=== PATIENT | female | born 1955 | race Caucasian/White ===

== ENCOUNTER 2022-12-01 09:24 | Emergency (ER) | payer MEDICARE, BC, SELFPAY ==
[2022-12-01 09:31] VITALS: BP 141/66; PULSE 94; RESP 20; TEMP 36.2; O2SAT 96; BMI 37.6
--- NOTE | 2022-12-01 09:41 | ED.NURSE ---
[facility] Dispatch contacted and informed of pt's dog bite. Provided dispatch with pt's phone number to contact pt directly for info.
--- NOTE | 2022-12-01 09:54 | ED.ANIMALBIT ---
HPI - Animal Bite General Time Seen by Provider: 09:54 Date Seen: 12/01/22 Chief Complaint: Animal Bite Stated Complaint: Dog bite L hand Time Seen by Provider: 12/01/22 09:54 Source: patient and RN notes reviewed Mode of arrival: ambulatory Limitations: no limitations History of Present Illness HPI narrative: Anna is a very pleasant 67-year-old female with history of type 2 diabetes note, no history of MRSA who comes to the emergency room for evaluation of a dog bite. Charley bruno dog actually bit her yesterday on the left hand. This is a dog that is fully vaccinated. She notes that today there is more redness. She also noticed some swelling. She and her daughter worried because she does have a history of diabetes. She has no fever or chills. No vomiting. She has not taken anything for pain. She feels like her tetanus was ?along long time ago?. She is currently on Keflex Anna typically sees a PA in the [place] [facility] at the [facility]. No previous notes on patient. Related Data Previous Rx's Medication Instructions Recorded doxycycline hyclate 100 mg capsule 100 mg PO BID #14 caps 12/01/22 metronidazole 500 mg tablet 500 mg PO TID #20 tabs 12/01/22 Allergies Allergy/AdvReac Type Severity Reaction Status Date / Time adhesive tape Allergy Unknown Verified 12/01/22 09:36 Penicillins Allergy Unknown Verified 12/01/22 09:36 Review of Systems Status of ROS: Reports: 6 or more systems reviewed and unremarkable except as noted in History and below Const: Denies: fever GI: Denies: nausea or vomiting Musculo: Reports: extremity pain (Left hand) and extremity swelling Integ/Breast: Reports: redness, skin tenderness and skin swelling Neuro: Denies: headache PFSH PFSH Social History Smoking Status: Unknown if ever smoked Exam Narrative: Exam Narrative: Patient is a very pleasant alert and oriented. As she has no respiratory distress at this time. Examination of her left hand shows a v-shaped laceration measuring in total approximately 1.4 cm. This compromises epidermis dermis and is open to the subcutaneous tissue. I do note that on the dorsal edge of the wound it does appear to be at least 1 cm penetration. No significant purulent discharge at this time but she does have surrounding erythema on the web space extending not quite until the 1st MCP. She has full abduction ad duction extension and flexion against resistance. She has full sensation. Distal to this laceration she has a superficial area of skin avulsion epidermis only with dermis intact. This is slightly larger than a dime. Const: Vital Signs, click to edit/add: Vital Signs - 24 hr 12/01/22 09:31 Temperature 97.1 F L Pulse Rate [Pulse Oximeter] 94 Respiratory Rate 20 Blood Pressure [Le ft Upper Arm] 141/66 H Pulse Oximetry 96 Oxygen Delivery Me thod Room Air Documenting provider has reviewed patient's vital signs: yes Course Course Hospital Course: Patient has sustained a dog bite and it appears that she has an early cellulitis. I do not note any compromise of the ligaments or musculatures with full motor and sensation. I would suggest irrigation of this wound as I do think it is deeper than the subcutaneous tissue at the webspace. Will x-ray to ensure no retained foreign body such as a dog 2s. Plan on antibiotics. Patient does have penicillin allergy so will need to use alternative regimen. Vital Signs Vital signs: Initial Vital Signs Temperature 97.1 F L 12/01/22 09:31 Temperature Source Temporal Artery Scan 12/01/22 09:31 Pulse Rate 94 12/01/22 09:31 Respiratory Rate 20 12/01/22 09:31 Blood Pressure 141/66 H 12/01/22 09:31 Blood Pressure Mean 91 12/01/22 09:31 Blood Pressure Position Sitting 12/01/22 09:31 Pulse Oximetry 96 12/01/22 09:31 Oxygen Delivery Method Room Air 12/01/22 09:31 Vital Signs Temperature 97.1 F L 12/01/22 09:31 Pulse Rate 94 12/01/22 09:31 Respiratory Rate 20 12/01/22 09:31 Blood Pressure 141/66 H 12/01/22 09:31 Pulse Oximetry 96 12/01/22 09:31 Oxygen Delivery Method Room Air 12/01/22 09:31 Temperature 97.1 F L 12/01/22 09:31 Pulse Rate 94 12/01/22 09:31 Respiratory Rate 20 12/01/22 09:31 Blood Pressure 141/66 H 12/01/22 09:31 Pulse Oximetry 96 12/01/22 09:31 Oxygen Delivery Method Room Air 12/01/22 09:31 MDM - Animal Bite MDM Narrative Medical decision making narrative: 1. Dog bite-no evidence of retained foreign body. Tetanus was in 2015 and thus because this was a dirty wound we elected to update with tetanus diphtheria given earlier today. For pain patient may use ibuprofen or Tylenol as needed. No evidence of underlying structure damage. 2. Cellulitis-patient has penicillin allergy and therefore will use doxycycline 100 mg p.o. b.i.d. for 7 days, Flagyl 500 mg p.o. t.i.d. for 7 days. [facility] [place]. Anna's daughter has check to make sure it is open today as it is a holiday. I did place a small 1/4 inch plain Nu Gauze wick into the laceration. I explained that after this long we would not so a laceration. I would want to actually keep this open for a period of time until we see improvement in the swelling and redness. They will follow-up tomorrow. If they have improvement they may remove that piece of gauze. If not would recommend a continued 24 hours in the event that there is drainage that needs to leave the wound. Unfortunately, I did explain that some of these wounds do need to go to the operating room for irrigation. I do not feel that is the case at this time. I did explain that Anna would need to return to the emergency room for worsening symptoms especially fever, chills, redness extending up the arm, vomiting. 3. Disposition-home at this time. Return as needed. Imaging Data hand xr: Attestation: I have reviewed the pertinent imaging results. My impression: no foreign bodies noted Radiologist's impression: Degenerative changes. No fracture. No soft tissue gas. No radiodense foreign body. Impression: No foreign body. No fracture. Discharge Plan Discharge Clinical Impression: Dog bite, Cellulitis Patient Disposition: Home, Self-Care Condition: Unchanged Additional Instructions: You will need to be on 2 different antibiotics in order to cover the bacteria that could be causing this infection. First he will be on doxycycline twice a day. That medication is every 12 hours. Secondly you will be on a medication called Flagyl which will be 3 times a day. Follow-up tomorrow for a recheck. Once the redness disappears recommend pulling the gauze from the wound. This should be in the next 24-48 hours. Stop Keflex while on these antibiotics. Check with your dentist to see if they want you to resume Keflex after 7 days of treatment with doxycycline and metronidazole. Ibuprofen or Tylenol as needed for discomfort. Return to the emergency room for fever, worsening symptoms including swelling drainage of pus or redness extending up the hand and arm. Prescriptions: New metronidazole 500 mg tablet 500 mg PO TID Qty: 20 0RF doxycycline hyclate 100 mg capsule 100 mg PO BID Qty: 14 0RF Stand Alone Forms: [facility] Info Instructions
--- NOTE | 2022-12-01 10:02 | CRLHL7_ITS ---
For Patients: As a result of the Cures Act, medical imaging exams and procedure reports are released immediately into your electronic medical record. You may view this report before your referring provider. If you have questions, please contact your health care provider. Indication: Dog bite Technique: 2 views left hand Comparison: None Findings: Degenerative changes. No fracture. No soft tissue gas. No radiodense foreign body. Impression: No foreign body. No fracture. Dictated by Walter Ribeiro MD @ 12/01/2022 10:18:32 AM (Electronically Signed)
--- NOTE | 2022-12-01 10:21 | ED.NURSE ---
Lacs on pt L hand irrigated with ~30mLs NS.
[2022-12-01 10:51] VITALS: BP 112/71; PULSE 91; O2SAT 93
== END 2022-12-01 10:53 | disposition home or self-care (01) ==
LOC: ED 10:50
PROVIDERS: Emergency Provider Family Medicine; PCP Internal Medicine
DX: S61.452A Open bite of left hand, initial encounter (principal); L03.114 Cellulitis of left upper limb; W54.0XXA Bitten by dog, initial encounter; Z23 Encounter for immunization
CPT/HCPCS: 73120; 87070; 90471; 90714; 99283; 99284

== ENCOUNTER 2023-07-28 15:11 | Emergency (ER) | payer MEDICARE, BC, SELFPAY ==
[2023-07-28 15:18] VITALS: BP 164/76; PULSE 96; RESP 20; TEMP 36.6; O2SAT 95; BMI 33.8
--- NOTE | 2023-07-28 15:20 | XR_ITS ---
Patient: RAJINDER VERMA Facility:?[facility] Patient ID:?[id number] Site Patient ID:?[id number]. Site :?1955 Study:?XRay-Extremity Left HAND-07/28/2023 3:55:58 PM Ordering Physician:RENEE Final Report: Indication: Trauma, fall. Technique: Left hand 3 views. Comparison: None. Findings/Impression: Bones: Alignment is normal. No fractures or bone lesions. No sign of acute injury. Joint spaces: Arthritis present in the 1st CMC joint and throughout the IP joints. Soft tissues: Unremarkable. Dictated by Valentino Mock MD @ 07/28/2023 4:43:12 PM Signed by:?Vaelntino Mock MD @07/28/2023 4:43:12 PM (Electronic Signature)
--- NOTE | 2023-07-28 15:20 | XR_ITS ---
Patient: RAJINDER VERMA Facility:?[facility] Patient ID:?[id number] Site Patient ID:?[id number]. Site :?1955 Study:?XRay-Spine LUMBAR-07/28/2023 3:58:02 PM Ordering Physician:RENEE Final Report: INDICATION: Trauma, fall. TECHNIQUE: Lumbar spine 3 view. COMPARISON: None. FINDINGS: Bones: Alignment is normal. No fractures or significant bone lesions. No signs of acute injury. Anterior endplate Joints: Osteophytes at multiple levels. Disc spaces are within normal limits for age. Diffuse hypertrophic facet joint arthrosis. Soft tissues: Unremarkable. Dictated by Valentino Mock MD @ 07/28/2023 4:46:40 PM Signed by:?Valentino Mock MD @07/28/2023 4:46:40 PM (Electronic Signature)
--- NOTE | 2023-07-28 15:20 | XR_ITS ---
Patient: RAJINDER VERMA Facility:?[facility] Patient ID:?[id number] Site Patient ID:?[id number]. Site :?1955 Study:?XRay-Extremity Left FOREARM-07/28/2023 3:56:47 PM Ordering Physician:RENEE Final Report: Indication: Trauma, fall. Technique: Left forearm 3 views. Comparison: None. Findings/Impression: Bones: Alignment is normal. No fractures or bone lesions. No sign of acute injury. Joint spaces: Unremarkable. Soft tissues: Unremarkable. Dictated by Valentino Mock MD @ 07/28/2023 4:45:21 PM Signed by:?Valentino Mock MD @07/28/2023 4:45:21 PM (Electronic Signature)
--- NOTE | 2023-07-28 15:20 | XR_ITS ---
Patient: RAJINDER VERMA Facility:?[facility] Patient ID:?[id number] Site Patient ID:?[id number]. Site :?1955 Study:?XRay-Extremity Right HAND-07/28/2023 3:54:28 PM Ordering Physician:RENEE Final Report: Indication: Trauma. Technique: Right hand, 3 views. Comparison: None. Findings: Bones: Diffuse demineralization of visualized bones. Alignment is normal. No fractures or bone lesions. Joint spaces: Mild to moderate diffuse degenerative changes.. Soft tissues: Unremarkable. Impression: No sign of acute injury. Dictated by Kirsten Lino MD @ 07/28/2023 4:41:46 PM Signed by:?Kirsten Lino MD @07/28/2023 4:41:46 PM (Electronic Signature)
--- NOTE | 2023-07-28 15:21 | XR_ITS ---
Patient: RAJINDER VERMA Facility:?[facility] Patient ID:?[id number] Site Patient ID:?[id number]. Site :?1955 Study:?XRay-Extremity Right WRIST-07/28/2023 3:52:48 PM Ordering Physician:RENEE Final Report: Indication: Trauma, fall. Technique: Right wrist 3 views. Comparison: None. Findings/Impression: Bones: Subtle nondisplaced fracture suspected in the base of the ulnar styloid. No other osseous abnormality. Joint spaces: Unremarkable. Soft tissues: Unremarkable. Dictated by Valentino Mock MD @ 07/28/2023 4:41:32 PM Signed by:?Valentino Mock MD @07/28/2023 4:41:32 PM (Electronic Signature)
--- NOTE | 2023-07-28 15:23 | ED.GENADULT ---
HPI - General Adult General Chief complaint: Extremity Pain/Injury, Upper Stated complaint: Fell yesterday, L arm injury Time Seen by Provider: 07/28/23 15:13 History of Present Illness HPI narrative: 68-year-old white female with a history of falling down a couple stairs yesterday she injured her right long finger injured over the D IP joint she injured her left ring finger over the same joint. She complains of low back discomfort although she has been ambulatory, no bowel or bladder change fever chills perineal numbness no lower extremity symptoms. The patient also complains of abrasions to the left forearm and pain in her right wrist. She describes herself as being largely healthy, she has had no prior injuries to these areas. She was simply going in her car when she lost balance. She denies chest pain breathing problem or neurologic complaint at the time of the injury. Related Data Previous Rx's Medication Instructions Recorded doxycycline hyclate 100 mg capsule 100 mg PO BID #14 caps 12/01/22 doxycycline hyclate 100 mg capsule 100 mg PO BID #14 caps 12/01/22 metronidazole 500 mg tablet 500 mg PO TID #20 tabs 12/01/22 metronidazole 500 mg tablet 500 mg PO TID #20 tabs 12/01/22 Allergies Allergy/AdvReac Type Severity Reaction Status Date / Time adhesive tape Allergy Unknown Verified 12/01/22 09:36 Penicillins Allergy Unknown Verified 12/01/22 09:36 Review of Systems Status of ROS: Reports: 6 or more systems reviewed and unremarkable except as noted in History and below [facility] Social History Smoking Status: Never smoker How often do you have a drink containing alcohol: never How often do you have six or more drinks on one occasion: Never AUDIT-C Alcohol total score: 0 Non-prescribed substance use: denies use Exam Narrative: Exam Narrative: Objective: Patient is alert, moves her neck fully has no neck pain or headache, no HEENT trauma noted Back exam shows some mild hypersensitivity to the lumbar spine with mild tenderness in the paravertebral muscles, no bruising or ecchymoses Pelvis is stable Lower extremities unremarkable moves them well she is able to ambulate without difficulty Her left forearm shows abrasions over the entire volar forearm, and she has got soft tissue swelling of her ring finger and on the right wrist she has got a little redness over ulnar styloid and some swelling of the long finger. There appears to be mostly tenderness over the D IP joint area. There is no marked dislocation of either left ring or right long finger. Neurologic is nonfocal upper lower extremities. She does have full range of motion of the fingers that are injured. Const: Vital Signs, click to edit/add: Vital Signs - 24 hr 07/28/23 15:18 Temperature 98 F Pulse Rate [Pulse Oximeter] 96 Respiratory Rate 20 Blood Pressure [Ri ght Upper Arm] 164/76 H Pulse Oximetry 95 Oxygen Delivery Me thod Room Air Course Vital Signs Vital signs: Initial Vital Signs Temperature 98 F 07/28/23 15:18 Temperature Source Temporal Artery Scan 07/28/23 15:18 Pulse Rate 96 07/28/23 15:18 Pulse Rhythm Regular 07/28/23 15:18 Respiratory Rate 20 07/28/23 15:18 Blood Pressure 164/76 H 07/28/23 15:18 Blood Pressure Mean 105 07/28/23 15:18 Blood Pressure Position Supine 07/28/23 15:18 Pulse Oximetry 95 07/28/23 15:18 Oxygen Delivery Method Room Air 07/28/23 15:18 Vital Signs Temperature 98 F 07/28/23 15:18 Pulse Rate 96 07/28/23 15:18 Respiratory Rate 20 07/28/23 15:18 Blood Pressure 164/76 H 07/28/23 15:18 Pulse Oximetry 95 07/28/23 15:18 Oxygen Delivery Method Room Air 07/28/23 15:18 Temperature 98 F 07/28/23 15:18 Pulse Rate 96 07/28/23 15:18 Respiratory Rate 20 07/28/23 15:18 Blood Pressure 164/76 H 07/28/23 15:18 Pulse Oximetry 95 07/28/23 15:18 Oxygen Delivery Method Room Air 07/28/23 15:18 Medications Administered Medications: Discontinued Medications Generic Name Dose Route Start Last Admin Trade Name Freq PRN Reason Stop Dose Admin Diphtheria/Tetanus/Acell Pertussis 0.5 ml 07/28/23 15:22 07/28/23 15:33 Tetanus/Diphth/Pertussis 0.5 Ml Syringe IM 07/28/23 15:23 Not Given .ONCE ONE Medical Decision Making MDM Narrative Medical decision making narrative: [age] year white female fell down some stairs, within the last day or so, has low back discomfort, bilateral right long and left ring finger tenderness, right foot wrist tenderness and left form tenderness. Will check x-rays of those areas. Will check a lumbar spine x-ray as well. Her tetanus is up-to-date. She is ambulatory without difficulty. Disposition pending findings above. Addendum 4:00 p.m.: The patient's x-ray of her left forearm left hand, right wrist and right hand appear unremarkable, her lumbar spine x-ray show degenerative scoliosis and facet arthropathy, anterior osteophytic spurring but no fractures noted or significant malalignment. At this point I think she could follow a regimen of ice, Advil for few days, light activity, recheck with regular doctor in the next 3-4 days, return to ED sooner problems or concerns. Will review x-ray radiologist reports when they return. I suspect the patient will recover from these issues and would recommend follow-up with primary care as mention thank Discharge Plan Discharge Clinical Impression: Low back pain, Finger injury, Fall, Abrasion forearm Patient Disposition: Home, Self-Care Additional Instructions: ice, advil , recheck primary care in the next 2-3 days. Keep left forearm abrasions cleansed and covered for 2-3 days. Bacitracin would be a good covering agent. Your up-to-date on her tetanus shot Activity Level: Light activity Discharge Diet: Regular Prescriptions: No Action metronidazole 500 mg tablet 500 mg PO TID Qty: 20 0RF doxycycline hyclate 100 mg capsule 100 mg PO BID Qty: 14 0RF doxycycline hyclate 100 mg capsule 100 mg PO BID Qty: 14 0RF metronidazole 500 mg tablet 500 mg PO TID Qty: 20 0RF Follow Up/Referrals: Laly Dickey PA-C [Primary Care Provider] - Stand Alone Forms: [employer] Info Instructions
== END 2023-07-28 16:25 | disposition home or self-care (01) ==
PROVIDERS: Emergency Provider Family Medicine; PCP Internal Medicine
DX: M54.50 Low back pain, unspecified (principal); S69.92XA Unspecified injury of left wrist, hand and finger(s), initial encounter; S50.812A Abrasion of left forearm, initial encounter; W01.0XXA Fall on same level from slipping, tripping and stumbling without subsequent striking against object, initial encounter
CPT/HCPCS: 72100; 73090; 73110; 73130; 90471; 99284; 99285

== ENCOUNTER 2023-10-10 14:04 | Inpatient (IN) | payer MEDICARE, BC, SELFPAY ==
[2023-10-10] VITALS (22 sets, daily range): BP systolic 102–138; BP diastolic 47–107; PULSE 87–106; RESP 20–26; TEMP 36.9–37.9; O2SAT 89–96; BMI 35.4; BMI 39.4
--- NOTE | 2023-10-10 14:30 | XR_ITS ---
Patient: RAJINDER VERMA Facility:?[facility] Patient ID:?[id number] Site Patient ID:?[id number] Site :?1955 Study:?XRay-Chest 1 VIEW PORTABLE-10/10/2023 2:44:25 PM Ordering Physician:RENEE Final Report: INDICATION: Cough. TECHNIQUE: Chest 1 view. COMPARISON: None. FINDINGS: Evaluation limited by patient rotation. Cardiovascular and mediastinum: Heart size and vasculature are normal in caliber and appearance. Lungs and pleural spaces: Lungs are clear. No sign of infiltrate or mass. No sign of pleural effusion. No pneumothorax. Bones and soft tissues: Degenerative changes of the spine and shoulders. IMPRESSION: No acute pulmonary process. Dictated by Kar Monahan MD @ 10/10/2023 3:05:14 PM Signed by:?Kar Monahan MD @10/10/2023 3:05:14 PM (Electronic Signature)
--- NOTE | 2023-10-10 14:32 | ED_ITS ---
HPI - General Adult General Chief complaint: Shortness of Breath/Dyspnea Stated complaint: SOB COPD History Time Seen by Provider: 10/10/23 14:06 History of Present Illness HPI narrative: Patient is a 68 year white female who has a history of type 2 diabetes by chart review, and COPD, who presents with shortness of breath and fever over the last several days. She has had an increasing cough, a little bit more productive than it has been. She has no chest pain, no swelling or edema in the legs, she has not had history of heart failure by her report. Patient does feel short of breath. She presents hypoxic with her O2 sat 88 89% range on room air. It goes in the mid 90 range on 2 lease or L nasal cannula. The patient is reporting weakness as well and difficulty sitting up and walking. The patient was brought in by EMS, family noticed that she was a little confused today, also short of breath, also paramedics noted a mid 80 O2 sat. She was given a DuoNeb in route. Related Data Home Medications Medication Instructions Recorded Confirmed albuterol sulfate 90 mcg/actuation 2 puff inhalation Q4H PRN 10/10/23 10/10/23 aerosol inhaler amitriptyline 50 mg tablet 150 mg PO HS 10/10/23 10/10/23 aspirin 81 mg tablet,delayed 81 mg PO DAILY 10/10/23 10/10/23 release atorvastatin 80 mg tablet 80 mg PO DAILY 10/10/23 10/10/23 diclofenac sodium 1 % topical gel 4 g topical QID PRN 10/10/23 10/10/23 ezetimibe 10 mg tablet 10 mg PO DAILY 10/10/23 10/10/23 gabapentin 300 mg capsule 300 mg PO HS 10/10/23 10/10/23 insulin detemir U-100 100 unit/mL 32 unit subcut BID 10/10/23 10/10/23 (3 mL) subcutaneous pen (Levemir FlexPen) multivitamin with minerals 1 cap PO DAILY 10/10/23 10/10/23 omeprazole 40 mg capsule,delayed 40 mg PO DAILY 10/10/23 10/10/23 release semaglutide 0.25 mg or 0.5 mg (2 0.5 mg subcut .weekly 10/10/23 10/10/23 mg/3 mL) subcutaneous pen injector (Ozempic) semaglutide 1 mg/dose (4 mg/3 mL) 1 mg subcut .weekly 10/10/23 10/10/23 subcutaneous pen injector tiotropium bromide 2.5 2 inh inhalation Q24H 10/10/23 10/10/23 mcg/actuation mist for inhalation (Spiriva Respimat) torsemide 20 mg tablet 80 mg PO DAILY 10/10/23 10/10/23 tramadol 50 mg tablet 50 mg PO HS PRN 10/10/23 10/10/23 venlafaxine 150 mg 150 mg PO DAILY 10/10/23 10/10/23 capsule,extended release 24 hr Previous Rx's Medication Instructions Recorded doxycycline hyclate 100 mg capsule 100 mg PO BID #14 caps 12/01/22 doxycycline hyclate 100 mg capsule 100 mg PO BID #14 caps 12/01/22 metronidazole 500 mg tablet 500 mg PO TID #20 tabs 12/01/22 metronidazole 500 mg tablet 500 mg PO TID #20 tabs 12/01/22 Allergies Allergy/AdvReac Type Severity Reaction Status Date / Time adhesive tape Allergy Unknown Verified 10/10/23 14:16 Penicillins Allergy Unknown Verified 10/10/23 14:16 Review of Systems Status of ROS: Reports: 6 or more systems reviewed and unremarkable except as noted in History and below [facility] Medical History (Updated 10/10/23 @ 17:56 by Lukas Santiago MD) Dizziness ?R42 - Dizziness and giddiness (ICD-10) Hyperlipidemia ?E78.5 - Hyperlipidemia, unspecified (ICD-10) Anxiety ?F41.9 - Anxiety disorder, unspecified (ICD-10) Gastroesophageal reflux ?K21.9 - Gastro-esophageal reflux disease without esophagitis (ICD-10) Obstructive sleep apnea ?G47.33 - Obstructive sleep apnea (adult) (pediatric) (ICD-10) Peripheral autonomic neuropathy due to diabetes mellitus ?E11.43 - Type 2 diabetes mellitus with diabetic autonomic (poly)neuropathy (ICD-10) Diabetes mellitus ?E11.9 - Type 2 diabetes mellitus without complications (ICD-10) Chronic back pain ?M54.9 - Dorsalgia, unspecified (ICD-10) ?G89.29 - Other chronic pain (ICD-10) Pulmonary nodule ?R91.1 - Solitary pulmonary nodule (ICD-10) Hypertension ?I10 - Essential (primary) hypertension (ICD-10) Comminuted right humeral fracture with nonunion ?S42.351K - Displaced comminuted fracture of shaft of humerus, right arm, subsequent encounter for fracture with nonunion (ICD-10) Chronic renal failure, stage 3b ?N18.32 - Chronic kidney disease, stage 3b (ICD-10) Obesity ?E66.9 - Obesity, unspecified (ICD-10) Heart failure with preserved ejection fraction ?I50.30 - Unspecified diastolic (congestive) heart failure (ICD-10) COPD (chronic obstructive pulmonary disease) ?J44.9 - Chronic obstructive pulmonary disease, unspecified (ICD-10) Surgical History (Updated 10/10/23 @ 17:46 by Lukas Santiago MD) Hx of shoulder surgery ?Z98.890 - Other specified postprocedural states (ICD-10) History of parathyroidectomy ?Z98.890 - Other specified postprocedural states (ICD-10) ?Z90.89 - Acquired absence of other organs (ICD-10) Family History (Updated 10/10/23 @ 17:48 by Lukas Santiago MD) Brother Diabetes Hx of CABG Sister Diabetes Father Lung cancer Prostate cancer Mother Lung cancer Heart disease Social History (Updated 10/10/23 @ 17:50 by Lukas Santiago MD) Narrative: Anna lives in [place] with her brother. She reports generally this has been going well. She has some disability because of her remote history of right shoulder injury, poorly healing humeral fracture. She walks without assistive device. She quit smoking about 21 years ago. She does not drink alcohol. Her daughter Lea is healthcare power of banking attorney. Code status is full What is your current living situation?: I presently have a place to live Problems where you live: no known problems Problems where you live details: N/A In the past 12 months, utilities in danger of being shut off: no In past 12 months, lack of transportation kept you from medical appts, meetings, work, or getting things needed for daily living: no In the past 12 mos, have been you worried that your food would run out before you had money to buy more?: never true In the past 12 mos, the food you bought just didn't last and you didn't have money to buy more?: never true Smoking Status: Former smoker How often do you have a drink containing alcohol: never How often do you have six or more drinks on one occasion: Never AUDIT-C Alcohol total score: 0 Non-prescribed substance use: denies use Caffeine: Yes How often does anyone, including family, friends and others, physically hurt you : never How often does anyone, including family, friends and others, insult or talk down to you: never How often does anyone, including family, friends and others, threaten you with harm: never How often does anyone, including family, friends and others, scream or curse at you: never service: No Exam Narrative: Exam Narrative: Objective: Patient's temperature is 100.3? O2 sat is 88 89% on room air Alert, patient is having real difficulty sitting up as she is quite weak. No scleral icterus Mouth clear but dry Neck is supple Chest diminished air exchange bilaterally no obvious rales or wheezing Heart rate and rhythm regular 2/6 systolic murmur occasional ectopic beat noted abdomen benign soft extremities are no edema neurologic nonfocal Patient does have what appear to be surgical scars over knees Const: Vital Signs, click to edit/add: Vital Signs - 24 hr 10/10/23 14:00 10/10/23 14:16 10/10/23 14:38 Temperature 100.3 F H Pulse Rate 106 H Pulse Rate [Pulse Oximeter] 104 H Respiratory Rate 26 H Blood Pressure Blood Pressure [Ri ght Upper Arm] 128/70 Pulse Oximetry 89 93 Oxygen Delivery Me thod Nasal Cannula Room Air Nasal Cannula Oxygen Flow Rate 2 2 10/10/23 14:45 10/10/23 15:21 10/10/23 15:26 Temperature Pulse Rate 102 H 102 H 101 H Pulse Rate [Pulse Oximeter] Respiratory Rate Blood Pressure 121/71 Blood Pressure [Ri ght Upper Arm] Pulse Oximetry 94 92 94 Oxygen Delivery Me thod Nasal Cannula Nasal Cannula Nasal Cannula Oxygen Flow Rate 2 2 2 10/10/23 15:30 10/10/23 15:32 10/10/23 15:45 Temperature Pulse Rate 100 100 100 Pulse Rate [Pulse Oximeter] Respiratory Rate Blood Pressure 135/71 Blood Pressure [Ri ght Upper Arm] Pulse Oximetry 94 96 96 Oxygen Delivery Me thod Nasal Cannula Nasal Cannula Nasal Cannula Oxygen Flow Rate 2 1 1 10/10/23 16:00 10/10/23 16:02 10/10/23 16:15 Temperature Pulse Rate 102 H 100 100 Pulse Rate [Pulse Oximeter] Respiratory Rate Blood Pressure 116/59 L Blood Pressure [Ri ght Upper Arm] Pulse Oximetry 94 93 93 Oxygen Delivery Me thod Nasal Cannula Nasal Cannula Nasal Cannula Oxygen Flow Rate 1 1 1 10/10/23 16:30 10/10/23 16:32 10/10/23 16:45 Temperature Pulse Rate 100 100 100 Pulse Rate [Pulse Oximeter] Respiratory Rate Blood Pressure 131/85 Blood Pressure [Ri ght Upper Arm] Pulse Oximetry 92 90 93 Oxygen Delivery Me thod Nasal Cannula Nasal Cannula Nasal Cannula Oxygen Flow Rate 1 1 1 10/10/23 17:00 10/10/23 17:01 Temperature Pulse Rate 98 99 Pulse Rate [Pulse Oximeter] Respiratory Rate Blood Pressure 138/107 H Blood Pressure [Ri ght Upper Arm] Pulse Oximetry 94 94 Oxygen Delivery Me thod Nasal Cannula Nasal Cannula Oxygen Flow Rate 1 1 Course Vital Signs Vital signs: Initial Vital Signs Oxygen Delivery Method Nasal Cannula 10/10/23 14:00 Oxygen Flow Rate 2 10/10/23 14:00 Vital Signs Oxygen Delivery Method Nasal Cannula 10/10/23 14:00 Oxygen Flow Rate 2 10/10/23 14:00 Temperature 100.1 F H 10/10/23 17:55 Pulse Rate 99 10/10/23 17:55 Respiratory Rate 22 10/10/23 17:55 Blood Pressure 122/66 10/10/23 17:55 Pulse Oximetry 95 10/10/23 17:55 Oxygen Delivery Method Nasal Cannula 10/10/23 17:55 Oxygen Flow Rate 1 10/10/23 17:55 Medications Administered Medications: Discontinued Medications Generic Name Dose Route Start Last Admin Trade Name Freq PRN Reason Stop Dose Admin Azithromycin 500 mg 10/10/23 16:14 10/10/23 17:14 Azithromycin 100 Mg/Ml Inj IVPB 10/10/23 16:15 500 mg ONCE ONE Administration Sodium Chloride 500 mls @ 500 mls/hr 10/10/23 14:29 10/10/23 16:35 0.9 % Sodium Chloride 500 Ml IV 10/10/23 15:28 Infused .Q1H ONE Infusion Ceftriaxone Sodium 1 gm/ 100 mls @ 200 mls/hr 10/10/23 16:14 10/10/23 17:29 Sodium Chloride IVPB 10/10/23 16:15 Infused ONCE ONE Infusion Prednisone 60 mg 10/10/23 17:11 10/10/23 18:15 Prednisone 20 Mg Tablet PO 10/10/23 17:12 60 mg ONCE ONE Administration Medical Decision Making MDM Narrative Medical decision making narrative: [age] year white female with COPD history of type 2 diabetes with fever, increasing cough. I think could be hess to check the viral studies, chest x- ray, will give IV fluid, patient likely will need IV steroids and antibiotics and hospitalization. Will check the above-mentioned studies please see disposition and results. Addendum 3:06 p.m.: The patient has a rotated x-ray that does show some pulmonary congestion in at the bases, read by Radiology as normal, but given her hypoxia her fever I think it be hess to check a CT without contrast of her chest to make sure to them the pneumonia. Her EKG shows sinus tachycardia but no acute ST T wave changes. This is by my read. The patient's viral studies are negative. Addendum 4:[address] patient's CT scan shows right lower lobe patchy infiltrate consistent with pneumonia. She was hypoxic on presentation I think we should observe her overnight IV antibiotics nebs and steroid plus or minus steroids. Will discuss admission with hospitalist. Lab Data Labs: Lab Results 10/10/23 10/10/23 10/10/23 Range/Units 14:20 14:36 14:50 WBC 8.02 (4.50-11.00) K/uL RBC 3.88 L (4.00-5.20) m/uL Hgb 12.1 (12.0-16.0) gm/dL Hct 35.7 (33.0-51.0) % MCV 92 (80-100) fL MCH 31 (26-34) pg MCHC 34 (32-36) gm/dL RDW Coeff of Isiah 12.5 (11.5-15.5) % Plt Count 229 (140-440) K/uL Neut % (Auto) 72.7 H (42.0-72.0) % Lymph % (Auto) 13.7 L (20-44) % [place] % (Auto) 11.0 (0.0-11.0) % Eos % (Auto) 2.0 (0.0-7.0) % Baso % (Auto) 0.5 (0.0-3.0) % Neut # (Auto) 5.80 (1.7-7.0) K/uL Lymph # (Auto) 1.10 (0.90-2.90) K/uL [place] # (Auto) 0.90 (0.00-0.90) K/UL Eos # (Auto) 0.16 (0.00-0.50) K/uL Baso # (Auto) 0.04 (0.00-0.30) K/uL Abs Immat Gran (auto) 0.01 (0.00-0.30) K/uL Imm/Tot Granulo (auto) 0.1 % VBG pH 7.463 H (7.32-7.43) VBG pCO2 40 (40-50) mmHG VBG pO2 40.1 (25-47) mmHG VBG HCO3 29 H (21-28) mmol/L Sodium 133 L (135-149) mmol/L Potassium 4.3 (3.6-5.1) mmol/L Chloride 98 (96-114) mmol/L Carbon Dioxide 29 (20-32) mmol/L Anion Gap 6 L (7-15) mEq/L BUN 39 H (7-30) mg/dL Creatinine 2.1 H (0.5-1.5) mg/dL Estimated Creat Clear 26.05 Estimated GFR 25 ml/min Glucose 103 (60-115) mg/dL Calcium 8.8 (8.4-10.6) mg/dL Total Bilirubin 0.5 (0.1-1.5) mg/dL Direct Bilirubin 0.1 (0.0-0.5) mg/dL AST 39 H (12-35) U/L ALT 34 (4-35) U/L Alkaline Phosphatase 76 (40-150) U/L C-Reactive Protein 1.8 H (0.5-1.0) mg/dL NT-Pro-B Natriuret Pep 66 pg/mL Total Protein 8.0 (6.0-8.3) g/dL Albumin 4.6 (3.3-5.0) g/dL SARS-CoV-2 (PCR) Negative SARS-CoV-2 Cancelled (Negative) Influenza Type A (PCR) Negative PCR FLU A Cancelled (Negative) Influenza Type B (PCR) Negative PCR FLU B Cancelled (Negative) RSV (PCR) Negative PCR RSV Cancelled (Negative) POC Troponin I 0.01 (0.01-0.04) ng/ml Discharge Plan Discharge Clinical Impression: COPD exacerbation, Pneumonia Patient Disposition: Admitted As Observation
--- OUTSIDE RECORDS SUMMARY | 2023-10-10 14:43 | XMS_ITS | Encounter Summary ---
Author Name Unknown Organization [facility] Address [address] [place] [address] Care Team Providers Care Spark Plug Assembler Name Role Phone Laly DickeyCKavya Primary Care Provider Reason for Referral * MRI/CAT/PET Scan (Routine) - Closed Specialty Diagnoses / Procedures Referred By Nemo morales Referred To Contact Radiology Diagnoses Loss Memory Procedures MR Brain Dementia without and with IV Contrast MR Brain without and with IV Contrast Laly Dickey P.AKavya-C. 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 300 [facility] NATASHA Gonzalez [phone] Loss Memory Discharge Disposition: Home or Self Care Social History Tobacco Use Types Packs/Day Years Used Date Smoking Tobacco: Former Cigarettes 2 30 0 11/13/1975 - 11/12/2005 Smokeless Tobacco: Never Alcohol Use Standard Drinks/Week Comments Not Currently 0 (1 standard drink = 0.6 oz pur e alcohol) Humiliation, Afraid, Rape, and Kick questionnair e Answer Date Recorded Within the last year, have y ou been afraid of your partner or ex-partner? No 12/18/2022 Within the last year, have y ou been humiliated or emotionally abused in other ways by your partner or ex-partner? No Within the last year, have y ou been kicked, hit, slapped, or otherwise physically hurt by your partner or ex-partner? No 12/18/2022 Within the last year, have y ou been raped or forced to have any kind of sexual activity by your partner or ex-partner? No 12/18/2022 Overall Financial Resource Strain (CARDIA) Answe r Date Recorded How hard is it for you to pa y for the very basics like food, housing, medical care, and heating? Not hard at all 12/18/2022 PHQ-2 Answer Date Recorded PHQ-2 Score 0 06/02/2023 Exercise Vital Sign Answer Date Recorde d On average, how many days pe r week do you engage in moderate to strenuous exercise (like a brisk walk)? 3 days 12/18/2022 On average, how many minutes do you engage in exercise at this level? 10 min 12/18/2022 Hunger Vital Sign Answer Date Recorded Within the past 12 months, y ou worried that your food would run out before you got the money to buy more. Never true 12/19/19 23 Within the past 12 months, t he food you bought just didn't last and you didn't have money to get more. Never true 12/18/2022 PRAPARE - Transportation Answer Date Re corded In the past 12 months, has l ack of transportation kept you from medical appointments or from getting medications? No 11/29 In the past 12 months, has l ack of transportation kept you from meetings, work, or from getting things needed for daily living? No 12/18/2022 Depression Answer Date Recor ded PHQ-9 Total Score (max 27) 0 03/01 Nutrition Answer Date Recorded Nutrition: EVOO Fat Source Unknown 12/18 On average, how many serving s of fruits and vegetables do you eat per day (serving size is equal to 1 cup or approximately the size of a tennis ball)? 3-5 12/18/2022 Dental Answer Date Recorded Dental: Regular Dentist Yes 12/19/19 23 Employment Answer Date Recorded Employment status Retired 12/18/2022 Housing Stability Answer Date Recorded What is your living situation today? I have a [facility] to live 12/18/2022 Sex and Gender Information Value Date Recorded Sex Assigned at Female 03/19/2023 10:10 AM CDT Gender Identity Female 03/19/2023 10:10 AM CDT Sexual Orientation Not on file documented as of this encounter Medications at Time of Discharge Medication Sig Dispensed Refills Start Date End Date amitriptyline (ELAVIL) 50 mg tablet TAKE 3 TABLETS(150 MG) BY MOUTH AT BEDTIME 90 tablet 3 06/04/2023 BD Ultra-Fine Short Pen Needle 31 gauge x 10/13 needle USE DIRECTED 11/07/2022 diclofenac sodium (VOLTAREN) 1 % gel Apply 4 g topically 4 (four) times a day as needed (Pain). Apply to right shoulder. 200 g 3 03/01/2023 ezetimibe (ZETIA) 10 mg tablet TAKE 1 TABLET(10 MG) BY MOUTH DAILY 90 tablet 3 07/16/2023 gabapentin (NEURONTIN) 300 mg capsule Take 1 capsule (300 mg total) by mouth at bedtime. 90 capsule 3 05/14/2023 05/08/2024 HumaLOG KwikPen Insulin 100 unit/mL injection Inject 30 Units under the skin 3 (three) times a day. 30 U with each meal. Adjust as follows: < 120 - 2 U; 120-179 no adjustment; 180-239 + 2 U; 240-299 + 4 U; 300-359 + 6 U; 360-419 + 8 Units; if > or = 420 >= + 10 Units. 15 mL 12/28/2022 Levemir FlexPen 100 unit/mL (3 mL) injection ADMINISTER 32 UNITS UNDER THE SKIN TWICE DAILY 60 mL 3 04/23/2023 LORazepam (ATIVAN) 0.5 mg tablet Take 1-2 tablets (0.5-1 mg total) by mouth See Admin Instructions. Take 30 minutes prior to procedure. 2 tablet 09/09/2023 losartan (COZAAR) 50 mg tablet TAKE 1 TABLET(50 MG) BY MOUTH DAILY 90 tablet 3 07/12/2023 meclizine (ANTIVERT) 12.5 mg tablet TAKE 1 TABLET(12.5 MG) BY MOUTH THREE TIMES DAILY NEEDED FOR DIZZINESS 270 tablet 07/12/2023 multivit with minerals/lutein (MULTIVITAMIN 50 PLUS ORAL) Take by mouth daily. omeprazole (PriLOSEC) [address] capsule Take 1 capsule (40 mg total) by mouth 2 (two) times a day before breakfast and dinner. 180 capsule 3 08/30/2023 OneTouch Verio Reflect Meter misc USE DEVICE FOUR TIMES DAILY 06/17/2022 OneTouch Verio test strips 3 test See Admin Instructions. 270 strip 3 09/13/2023 polyethylene glycol (MIRALAX) 17 gram/dose oral powder Take 1 packet by mouth as needed. 12/20/2019 semaglutide (OZEMPIC) 1 mg/dose (4 mg/3 mL) injection Inject 1 mg under the skin every 7 (seven) days. 6 mL 3 06/02/2023 tiotropium (Spiriva Respimat) 2.5 mcg/actuation inhaler Inhale 2 puffs daily. 12 g 3 04/09/2023 torsemide (DEMADEX) 20 mg tablet TAKE 4 TABLETS(80 MG) BY MOUTH DAILY 270 tablet 3 09/08/2023 venlafaxine XR (EFFEXOR-XR) 150 mg 24 hr capsule TAKE 1 CAPSULE(150 MG) BY MOUTH DAILY 90 capsule 3 08/02/2023 traMADoL (ULTRAM) 50 mg tabletIndications:Chr onic Pain/Nonacute Pain Take 1 tablet (50 mg total) by mouth at bedtime as needed for pain Indications: Chronic Pain/Nonacute Pain. 28 tablet 09/08/2023 10/04/2023 documented as of this encounter Plan of Treatment Upcoming Encounters Date Type Department Care Team (Late st Contact Info) Description 12/01/2023 9:10 AM CDT Appointment Department of Laboratory Medicine in [address] [phone] Laly Dickey P.AKavya-CKavya [address] [place] [phone] 12/01/2023 9:20 AM CDT Appointment Department of Laboratory Medicine in [place], [place] [address] [place] [phone] Laly Dickey P.AKavya-CKavya [address] [place] [phone] 12/06/2023 10:40 AM CDT Office Visit Department of Community Internal Medicine in [place], [place] [address] [place] [phone] Laly Dickey P.A.-CKavya [address] [place] [phone] 12/29/2023 2:30 PM CDT Comprehensive Visit Department of Neurology in [place], [place] [address] [place] [address] Otis Metz M.D. 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 No acute intracranial findings. 2. Hippocampi within 2 standard deviations of normal. 3. Moderate to severe multifocal brain atrophy with a nonspecific pattern. Narrative 09/28/2023 4:32 PM CDT EXAM: MR DEMENTIA BRAIN WITHOUT AND WITH IV CONTRAST COMPARISON:None FINDINGS: No diffusion restriction to suggest acute infarction. Mild periventricular and subcortical FLAIR hyperintensity no intracranial hemorrhage. Bilateral ocular lens replacements. Trace right mastoid air cell effusion. Mild because of thickening in the paranasal sinuses. No abnormal intracranial enhancement. Partially empty sella turcica. Image post-processing for quantitative segmental volume reporting and assessment was performed on an independent computer ice cream server using Interactive Advisory Software software. The clinical indication for performing the post-processing was dementia. Review of the senior quality assurance specialist images demonstrates adequate segmentation of the hippocampi. ?? Left hippocampal volume: ??3.43 Right hippocampal volume: ??3.71 Hippocampal asymmetry index: ??-8.01 Combined hippocampal volume: ??7.14 Combined hippocampal volume age-adjusted percentile: ??15.00 Combined inferior lateral ventricles (temporal horns) volume: ??3.60 Combined inferior lateral ventricles (temporal horns) age-adjusted percentile: ??93.00 Procedure Note Jelani Russell M.D. - 09/28/2023 EXAM: MR DEMENTIA BRAIN WITHOUT AND WITH IV CONTRAST COMPARISON:None FINDINGS: No diffusion restriction to suggest acute infarction. Mild periventricularand subcortical FLAIR hyperintensity no intracranial hemorrhage. Bilateralocular lens replacements. Trace right mastoid air cell effusion. Mildbecause of thickening in the paranasal sinuses. No abnormal intracranial enhancement. Partially emptysella turcica. Image post-processing for quantitative segmental volume reporting andassessment was performed on an independent computer ice cream server usingInteractive Advisory Software software. The clinical indication for performing thepost-processing was dementia. Review of the senior quality assurance specialist images demonstrates adequate segmentation of the hippocampi. Left hippocampal volume: 3.43 Right hippocampal volume: 3.71 Hippocampal asymmetry index: -8.01 Combined hippocampal volume: 7.14 Combined hippocampal volume age-adjusted percentile: 15.00 Combined inferior lateral ventricles (temporal horns) volume: 3.60 Combined inferior lateral ventricles (temporal horns) age-adjustedpercentile: 93.00 IMPRESSION: 1. No acute intracranial findings. 2. Hippocampi within 2 standard deviations of normal. 3. Moderate to severe multifocal brain atrophy with a nonspecificpattern. Laly Dickey P.A.-C. IMG MRI PROCEDU RES documented in this encounter Visit Diagnoses Diagnosis Loss Memory documented in this encounter Administered Medications Inactive Administered Medications - up to 3 most recent administrations Medication Order MAR Action Action Date Dose Rate Site gadobutrol injection 1-14 mL (GADAVIST) 1-14 mL, intravenous, Once in imaging, contrast, Starting on Wed09/28/23 at 1537, For 1 dose, Intrathecal doses greater than 0.25 mL not recommended. Given 09/28/2023 3:57 PM CDT 10 mL sodium chloride 0.9 % injection 10 mL 10 mL, intravenous, As needed, line care, Starting on Wed09/28/23 at 1537 Given 09/28/2023 3:58 PM CDT 10 mL documented in this encounter Additional Health Concerns Assessment Noted Time PHQ-9 Depression Total Score: 0 03/01/20 8:30 AM CDT documented as of this encounter Care Teams Spark Plug Assembler Relationship Specialty Start Date End Date Laly Dickey P.A.-C. [address] [place] [phone] PCP - General Internal Medicine 07/28/22 documented as of this encounter
--- OUTSIDE RECORDS SUMMARY | 2023-10-10 14:43 | XMS_ITS | Clinical Summary ---
Author Name Unknown Organization [facility] Address [address] [place] [address] Care Team Providers Care Harvest Manager Name Role Phone Laly Dickey P.A.-C. Primary Care Provider Source Comments Patient records contain information from all sites at [facility]. For routine questions regarding patient records, call [phone] during business hours, M-F 8:00 AM - 5:00 PM Central Time. Record requests for emergency care only can be directed to [phone] at any time.[facility] Allergies Active Allergy Reactions Criticality Noted Date Comments Adhesive Hives (Reselect Reaction),Rash High 03/29 Blisters Metformin Other (see comments) 03/01/2023 GI intolerance Penicillin Hives (Reselect Reaction) High 03/29/2013 Hospitalized Medications Medication Sig Dispensed Refills Start Date End Date Status aspirin [address] tablet Take 81 mg by mouth at bedtime. 2 Active OneTouch Verio Reflect Meter misc USE DEVICE FOUR TIMES DAILY 3 Active polyethylene glycol (MIRALAX) 17 gram/dose oral powder Take 1 packet by mouth as needed. 0 Active multivit with minerals/lutein (MULTIVITAMIN 50 PLUS ORAL) Take by mouth daily. Active atorvastatin (LIPITOR) 80 mg tablet Take 1 tablet (80 mg total) by mouth daily. 90 tablet 3 3 Active albuterol 90 mcg/actuation inhaler Inhale 2 puffs every 4 (four) hours as needed for shortness of breath. 54 g 3 3 Active BD Ultra-Fine Short Pen Needle 31 gauge x 10/13 needle USE DIRECTED 3 Active HumaLOG KwikPen Insulin 100 unit/mL injection Inject 30 Units under the skin 3 (three) times a day. 30 U with each meal. Adjust as follows: < 120 - 2 U; 120-179 no adjustment; 180-239 + 2 U; 240-299 + 4 U; 300-359 + 6 U; 360-419 + 8 Units; if > or = 420 >= + 10 Units. 15 mL 3 Active diclofenac sodium (VOLTAREN) 1 % gel Apply 4 g topically 4 (four) times a day as needed (Pain). Apply to right shoulder. 200 g 3 3 Active tiotropium (Spiriva Respimat) 2.5 mcg/actuation inhaler Inhale 2 puffs daily. 12 g 3 3 Active Levemir FlexPen 100 unit/mL (3 mL) injection ADMINISTER 32 UNITS UNDER THE SKIN TWICE DAILY 60 mL 3 3 Active gabapentin (NEURONTIN) 300 mg capsule Take 1 capsule (300 mg total) by mouth at bedtime. 90 capsule 3 3 05/08/20 24 Active semaglutide (OZEMPIC) 1 mg/dose (4 mg/3 mL) injection Inject 1 mg under the skin every 7 (seven) days. 6 mL 3 4 Active amitriptyline (ELAVIL) 50 mg tablet TAKE 3 TABLETS(150 MG) BY MOUTH AT BEDTIME 90 tablet 3 4 Active meclizine (ANTIVERT) 12.5 mg tablet TAKE 1 TABLET(12.5 MG) BY MOUTH THREE TIMES DAILY NEEDED FOR DIZZINESS 270 tablet 4 Active losartan (COZAAR) 50 mg tablet TAKE 1 TABLET(50 MG) BY MOUTH DAILY 90 tablet 3 4 Active ezetimibe (ZETIA) 10 mg tablet TAKE 1 TABLET(10 MG) BY MOUTH DAILY 90 tablet 3 4 Active venlafaxine XR (EFFEXOR-XR) 150 mg 24 hr capsule TAKE 1 CAPSULE(150 MG) BY MOUTH DAILY 90 capsule 3 4 Active omeprazole (PriLOSEC) [address] capsule Take 1 capsule (40 mg total) by mouth 2 (two) times a day before breakfast and dinner. 180 capsule 3 4 Active torsemide (DEMADEX) 20 mg tablet TAKE 4 TABLETS(80 MG) BY MOUTH DAILY 270 tablet 3 4 Active LORazepam (ATIVAN) 0.5 mg tablet Take 1-2 tablets (0.5-1 mg total) by mouth See Admin Instructions. Take 30 minutes prior to procedure. 2 tablet 4 Active OneTouch Verio test strips 3 test See Admin Instructions. 270 strip 3 4 Active traMADoL (ULTRAM) 50 mg tabletIndicatio ns:Chronic Pain/Nonacute Pain Take 1 tablet (50 mg total) by mouth at bedtime as needed for pain Indications: Chronic Pain/Nonacute Pain. 28 tablet 4 Active OneTouch Verio test strips See Admin Instructions. 3 09/13/19 24 Discontinued(Reo rder) traMADoL (ULTRAM) 50 mg tabletIndicatio ns:Chronic Pain/Nonacute Pain Take 1 tablet (50 mg total) by mouth at bedtime as needed for pain Indications: Chronic Pain/Nonacute Pain. 28 tablet 4 10/04/19 24 Discontinued Active Problems Problem Noted Date Diagnosed Date Insomnia 03/01/2023 Migraine Headache 03/01/2023 Overview: Amitriptyline for migraine prophylaxis and treatment of insomnia. Personal History Of Nicotine Dependence 03/01/20 23 Overview: 60 pack year smoking history. 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 Patient elected for surgical intervention but has to cancel procedure. She continues on Tramadol 50 mg at bedtime. Nodule Pulmonary Solitary 11/12/2021 Overview: CT Scan Chest Without Contrast (May 2022): IMPRESSION: 1. ??Stable intrapulmonary nodules 2. ??No new or enlarging pulmonary nodule. 3. ??Moderate, upper lobe predominant emphysematous changes Lung-RADs: 2 Benign Appearances or Behavior * ??Recommendation: Continued annual screening with repeat Low Dose CT (LDCT) in [address]. [address] scan in May 2023 Hypertension And Chronic Kidney Disease Stage 3 01/15/2021 Obesity Body Mass Index 30-39.9 Adult 06/06/2020 Pain Shoulder Right 12/18/2019 Overview: With recent humerus fracture on 10/19/2019. 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 Gastroesophageal Reflux Disease Without Esophagi tis 08/08/2014 Venous Insufficiency Chronic Peripheral 07/06/19 15 Chronic Diastolic (Congestive) Heart Failure 10/2014 Overview: Last echocardiogram December 2019 with ejection fraction of 60%. Other Specified Anxiety Disorders 03/06/2014 Hyperlipidemia Mixed 10/06/2006 Resolved Problems Problem Noted Date Diagnosed Date Resolved Date Hypertension Essential Primary 10/06/2006 12/27/2022 Encounters Date Type Department Care Team Description 10/01/2023 Orders Only Department of Community Internal Medicine in [address] [address] Laly Dickey P.AKavya-CKavya Loss Memory (Primary Dx) 09/30/2023 Refill Department of Community Internal Medicine in [place], [place] [address] [place] [address] Laly Dickey P.A.-CKavya Med Refill 09/28/2023 2:31 PM CDT - 09/28/2023 11:59 PM CDT Hospital Encounter Department of Radiology in [place], [place] [address] [place] [address] Laly Dickey P.AKavya-CKavya Loss Memory Discharge Disposition: Home or Self Care 09/21/2023 Clinical Communication Department of [facility] in [address] [place] [address] Laly Dickey P.A.-C. PandaDoc Form ([facility] DM test strips) 09/17/2023 Clinical Communication Department of [facility] Internal Medicine in [address] [place] [address] Laly Dickey P.A.-C. 09/13/2023 Refill Department of [facility] Internal Medicine in [address] [place] [address] Laly Dickey P.A.-C. Med Refill 09/09/2023 Clinical Communication Department of [facility] in [address] [address] Laly Dickey P.A.-C. Order Request 09/07/2023 2:17 PM CDT - 09/07/2023 11:59 PM CDT Hospital Encounter Department of Laboratory Medicine in [address] [place] [address] Laly Dickey P.A.-C. Loss Memory Discharge Disposition: Home or Self Care 09/07/2023 1:40 PM CDT Office Visit Department of [facility] in [address] [address] Laly Dickey P.A.-C. Loss Memory (Primary Dx) 09/07/2023 Refill Department of [facility] in [address] [address] Laly Dickey P.A.-C. Med Refill 08/28/2023 Refill Department of [facility] in [address] [place] [address] Valentino Quispe M.D. Med Refill 08/28/2023 Refill Department of [facility] in [address] [place] [address] Laly Dickey P.A.-C. Med Refill 08/27/2023 Clinical Communication Department of [facility] in [address] [place] [address] Feli Rollins APRN, C.NKavyaPKavya Rx Prior Authorization (Omeprazole) 08/26/2023 Clinical Communication Pharmacy Prior Auth RO [phone] [facility] 08/25/2023 Clinical Communication Department of [facility] in [address] [place] [address] Laly Dickey P.A.-C. 08/13/2023 Clinical Communication Department of [facility] in [address] [place] [address] Laly Dickey P.A.-CKavya 08/11/2023 Clinical Communication Department of [facility] in [address] [place] [address] Laly Dickey P.A.-C. Communication 08/09/2023 Refill Department of [facility] in [address] [place] [address] Laly Dickey P.A.-C. Med Refill 07/31/2023 Refill Department of [facility] in [address] [place] [address] Laly Dickey P.AKavya-C. Med Refill 07/16/2023 Refill Department of [facility] in [address] [place] [address] Laly Dickey P.A.-C. Med Refill 07/12/2023 Refill Department of [facility] in [address] [place] [address] Laly Dickey P.A.-C. Med Refill from Last 3 Months Immunizations Name Administration Dates Next Due HZV (ZOSTAVAX) 02/15/2013 HepB Adult (HEPLISAV-B) 06/02/2023 Influenza TIV (IM) 04/02/2006 Influenza high dose QV(65 ye ars or older) (PF) 03/19/2023,02/09/2022,03/17/2021,2019,03/01/2019,03/22/2018 Influenza, Seasonal, Injectable 04/02/2006 Influenza, Unspecified 02/15/2013,2011,03/19/2011,2009,02/14/2009,04/03/2008,03/24/2007 PCV13 03/22/2018 PPSV23 03/29/2019,02/15/2013,02/24/2012 RZV (SHINGRIX) 07/14/2019,05/11/2019 SARS-COV-2 (COVID-19) - PFIZ ER (Discontinued)(12 years or older) 03/19/2023(Deferred: Not available from mechanical pencils assembler) Td (Adult), adsorbed 12/01/2022 Tdap 06/12/2014,02/15/2013 influenza high dose (65 year s or older) (PF) 03/22/2018 influenza vaccine quad (FLUZONE/FLUARIX) (6 months and older)(PF) 03/02/2017,03/10/2016,02/13/2015,2013 Family History Medical History Relation Name Comments Bypass Brother 1 Augustus Diabetes Brother 1 Augustus Diabetes Brother 2 Med Prediabetes Brother 3 Kar Psychiatric disorder Brother 3 Kar Prediabetes Daughter Lea Lung cancer Father Quinton at age 70 Prostate cancer Father [place] Heart Mother Pat Hyperlipidemia Mother Pat Lung cancer Mother Pat at age 62 Diabetes mellitus type II Paternal Grandmother Diabetes Sister Angelina Heart murmur Son Ben Relation Name Status Comments Brother 1 Augustus Alive Brother 2 Med Alive Brother 3 Kar Alive Daughter Lea Alive Father [place] Mother Pat Paternal Grandmother Sister Angelina Alive Son Ben Alive Social History Tobacco Use Types Packs/Day Years Used Date Smoking Tobacco: Former Cigarettes 2 30 0 11/13/1975 - 11/12/2005 Smokeless Tobacco: Never Tobacco Cessation:Counseling Given: Not Answered Alcohol Use Standard Drinks/Week Comments Not Currently [...] Date Recorded Dental: Regular Dentist Yes 12/19/19 Employment Answer Date Recorded Employment status Retired 12/18/2022 Housing Stability Answer Date Recorded What is your living situation today? I have a [facility] place to live 12/18/2022 Sex and Gender Information Value Date Recorded Sex Assigned at Female 03/19/2023 10:10 AM CDT Gender Identity Female 03/19/2023 10:10 AM CDT Sexual Orientation Not on file Last Filed Vital Signs Vital Sign Reading Time Taken Comments Blood Pressure 107/71 09/07/2023 1:23 PM CDT Pulse 87 09/07/2023 1:23 PM CDT Temperature 35.8 ??C (96.5 ??F) 09/07/2023 1:23 PM CD T Respiratory Rate 16 09/07/2023 1:23 PM CDT Oxygen Saturation 96% 08/10/2022 12:53 PM CDT Inhaled Oxygen Concentration - - Weight 110 kg (242 lb 4.6 oz) 09/07/2023 1:23 PM CDT Height 171 cm (5' 7.32) 06/02/2023 8:15 AM INSOLE BUFFER Body Mass Index 37.58 06/02/2023 8:15 AM INSOLE BUFFER Plan of Treatment Upcoming Encounters Date Type Department Care Team (Late st Contact Info) Description 12/01/2023 9:10 AM CDT Appointment Department of Laboratory Medicine in [place], [place] [address] [place] [phone] Laly Dickey P.AKavya-C. [address] [place] [phone] 12/01/2023 9:20 AM CDT Appointment Department of Laboratory Medicine in [place], [place] [address] [place] [phone] Laly Dickey P.A.-C. [address] [place] [address] 12/06/2023 10:40 AM CDT Office Visit Department of Community Internal Medicine in [place], [place] [address] [facility] [place] [address] Laly Dickey P.A.-C. [address] [place] [address] 12/29/2023 2:30 PM CDT Comprehensive Visit Department of Neurology in [place], [place] [address], [place] [phone] Otis Metz M.D. [address], [place] [address] Scheduled Procedures Name Priority Associated Diagnoses Date/Ti me ARTHROPLASTY TOTAL REVERSE SHOULDER Fracture 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 Health Maintenance Due Date Last Done Comments CT Colonography 1955 Cologuard 1955 FIT 1955 Hepatitis B Vaccines (2 of 2 - CpG (Heplisav) risk 2-dose series) 06/30/2023 06/02/2023 Urine Albumin 08/25/2023 08/24/2022 Opioid Risk Tool (ORT) 09/11/2023 Dilated Eye Exam 11/28/2023 11/27/2022 (Per formed elsewhere) Hemoglobin A1C 11/30/2023 06/01/2023, 01/30, 11/25/2022, Additional history exists Generalized Anxiety (ADEN-7) 12/19/2023 12/18/2022 Visit: Medicare Annual Wellness 12/20/2023 12/18/2022 PEG assessment for Opioid therapy 01/04/2024 10/04/2023 Diabetic Office Visit with Foot Exam 01/21/2024 01/20/2023 Lipid (Cholesterol) Screening 02/27/2024 02/26/2023, 02/06/2022, 01/13/2021, Additional history exists Controlled Substance Monitoring (PHQ-9) 03/01/2024 03/01/2023 Controlled Substance Agreement 03/19/2024 03/19/2023 Controlled Substance Monitoring 03/22/2024 03/22/2023 Mammogram 03/26/2024 03/26/2023, 09/0 01/2022, 02/06/2022, Additional history exists Creatinine Level (Kidney Function Test) 06/01/2024 06/01/2023, 02/26/2023, 12/10/2022, Additional history exists Potassium Level 06/01/2024 06/01/2023, 01/30, 12/10/2022, Additional history exists Sodium Level 06/01/2024 06/01/2023, 01/30, 12/10/2022, Additional history exists COVID-19 Vaccine ( season) 2024 02/09/2022, 12/09/2021, 07/03/2021, Additional history exists Postponed from 01/29/2023 (Patient Refused) Hepatitis C Screening 06/02/2024 Postpo coby from 1955 (Provider recommendation) Visit: Chronic Disease, age 18+ 06/02/2024 06/02/2023, 08/03/2022 Office Visit for Blood Pressure Check / Re-check 09/06/2024 09/07/2023 Colonoscopy 05/22/2026 05/22/2021 (Perf ormed elsewhere) Colorectal Cancer Screening 05/22/2026 DTaP,Tdap,and Td Vaccines (4 - Td or Tdap) 12/01/2032 12/01/2022, 06/12/2014, 02/15/2013 Bone Density Scan (Osteoporosis Screen) Discontinued 01/12/2019 Pneumococcal vaccine (65+ years) Completed 03/29/2019, 03/22/2018, 02/15/2013, Additional history exists Zoster Vaccines Completed 07/14/2019, 04/30, 02/15/2013 Influenza Vaccine Completed 03/19/2023, , 03/17/2021, Additional history exists Depression Screening (Annual PHQ-2) Completed 06/02/2023, 06/02/2023 Fall Risk Screen (Annual) Completed 06/02/2023 Medical Devices Implanted Type Area Sign Out Clerk Device Identifier Shelf Expiration Date Model / Serial / Lot Knee Implant Knee Implant Bilateral : Knee Ocular Lens Ocular Lens Bilateral : Eye Procedures Procedure Name Priority Date/Time Associated Diagnosis Comments MR DEMENTIA BRAIN WITHOUT AND WITH IV CONTRAST RAD - Routine (most inpatients and all outpatients) 09/28/2023 4:05 PM CDT Loss Memory HEPATIC FUNCTION PANEL, S Routine 09/07/2023 2:27 PM CDT Loss Memory PERNICIOUS ANEMIA CASCADE, S Routine 09/07/2023 2:27 PM CDT Loss Memory THYROID FUNCTION CASCADE, S Routine 09/07/2023 2:27 PM CDT Loss Memory HEMOGLOBIN A1C, B Routine 06/01/2023 8:0 7 AM INSOLE BUFFER Diabetes Mellitus Type 2 With Diabetic Polyneuropathy (HCC) BASIC METABOLIC PANEL, S/P Routine 06/01/2023 8:07 AM INSOLE BUFFER Chronic Kidney Disease (CKD), Stage 3b Glomerular Filtration Rate (GFR) 30 To 44 (HCC) BI BREAST SCREENING BILATERAL WITH TOMOSYNTHESIS RAD - Routine (most inpatients and all outpatients) 03/26/2023 1:09 PM CDT Screening Mammogram Breast Cancer LIPID PANEL, S Routine 02/26/2023 7:55 AM CDT Diabetes Mellitus Type 2 With Diabetic Polyneuropathy (HCC) ALBUMIN, RANDOM, U Routine 08/24/2022 8: 27 AM CDT Diabetes Mellitus Type 2 With Diabetic Polyneuropathy (HCC) from Last 3 Months or Most Recently Relevant to Health Maintenance Results * MR Brain Dementia without and [...] assessment was performed on an independent computer gravity prospecting observer using Kriyari software. The clinical indication for performing the post-processing was dementia. Review of the quality officer images demonstrates adequate segmentation of the hippocampi. [...] andassessment was performed on an independent computer gravity prospecting observer using51edjQuant software. The clinical indication for performing thepost-processing was dementia. Review of the quality officer images demonstrates adequate segmentation of the hippocampi. [...] Laly Dickey P.A.-C. IMG MRI PROCEDU RES * Hepatic Function Panel (09/07/2023 2:27 PM CDT) Bilirubin, Total, P 0.2 0.0 - 1.2 mg/dL 09/07/2023 6:57 PM CDT OWAT Bilirubin, Direct, P <0.2 0.0 - 0.3 mg/dL 09/07/2023 6:57 PM CDT OWAT Aspartate Aminotransferase (AST), P 29 8 - 43 U/L 09/07/2023 6:57 PM CDT OWAT Alanine Aminotransferase (ALT), P 30 7 - 45 U/L 09/07/2023 6:57 PM CDT OWAT Alkaline Phosphatase, P 93 35 - 104 U/L 09/07/2023 6:57 PM CDT OWAT Albumin, P 4.6 3.5 - 5.0 g/dL 09/07/2023 6:57 PM CDT OWAT Protein, Total, P 7.6 6.3 - 7.9 g/dL 09/07/2023 6:57 PM CDT OWAT Blood (Blood, Venous) 09/07/2023 2:27 PM CDT 09/07/2023 5:59 PM CDT Laly Dickey P.A.-C. LAB BLOOD ADD-O N [facility] [address] [place] [address], [place] OWAT [facility] in [place] [address] [place] [address] * Thyroid Function Cook (09/07/2023 2:27 PM CDT) TSH, Sensitive 2.7 0.3 - 4.2 mIU/L 09/07/2023 6:29 PM CDT [facility] Blood (Blood, Venous) 09/07/2023 2:27 PM CDT 09/07/2023 5:59 PM CDT Laly Dickey P.A.-C. LAB BLOOD ADD-O N Performing Organization Address City/[facility]/ZIP Co de Phone Number [facility] [address] [place] [address], [facility] OWAT [facility] in [place] [address] [place] [address] * (ABNORMAL) Pernicious Anemia Cook (09/07/2023 2:27 PM CDT) Vitamin B12 Assay, S >1400(H) 180 - 914 ng/L 09/08/2023 10:37 AM CDT [facility] Blood (Blood, Venous) 09/07/2023 2:27 PM CDT 09/08/2023 7:42 AM CDT Narrative [facility] - 09/08/2023 10:37 AM CDT Specimen Information: Specimen ID: [id number] Specimen Type: Blood Specimen Collection Start Date: 09/07/2023 ??2:27 PM Specimen Received Date: 09/08/2023 ??7:42 AM Specimen ID: [id number] Specimen Type: Blood Specimen Collection Start Date: 09/07/2023 ??2:27 PM Specimen Received Date: 09/08/2023 ??7:02 AM Laly Dickey P.A.-C. LAB BLOOD NON A DD-ON Performing Organization Address [facility]/ZIP Co de Phone Number [facility] [address] [place] [address] [place] [id number] [place] [address] * (ABNORMAL) Hemoglobin A1c (06/01/2023 8:07 AM INSOLE BUFFER) Hemoglobin A1c, B 7.0(H) 4.2 - 5.6 % 06/01/2023 11:56 AM INSOLE BUFFER OWAT Comment: Hemoglobin A1c values greater than or equal to 6.5 percent are diagnostic for diabetes mellitus. ??Diagnosis should be confirmed by repeat testing. ??In diabetic patients, HbA1c goals should be discussed with healthcare provider. Blood (Blood, Venous) 06/01/2023 8:07 AM INSOLE BUFFER 06/01/2023 11:11 AM INSOLE BUFFER Laly Dickey P.A.-C. LAB BLOOD ADD-O N [facility] [address] [place] [address], [facility] [place] OWAT [facility] in [place] [address] [place] [address] * (ABNORMAL) Basic Metabolic Panel (06/01/2023 8:07 AM INSOLE BUFFER) Potassium, P 4.5 3.6 - 5.2 mmol/L 06/01/2023 12:11 PM INSOLE BUFFER OWAT Sodium, P 141 135 - 145 mmol/L 06/01/2023 12:11 PM INSOLE BUFFER OWAT Chloride, P 102 98 - 107 mmol/L 06/01/2023 12:11 PM INSOLE BUFFER OWAT Bicarbonate, P 27 22 - 29 mmol/L 06/01/2023 12:11 PM INSOLE BUFFER OWAT Anion Gap, P 12 7 - 15 06/01/2023 12:11 PM INSOLE BUFFER OWAT BUN (Blood Urea Nitrogen), P 16 6 - 21 mg/dL 06/01/2023 12:11 PM INSOLE BUFFER OWAT Creatinine 1.32(H) 0.59 - 1.04 mg/dL 06/01/2023 12:11 PM INSOLE BUFFER OWAT Estimated GFR (eGFR) 43(L) >=60 mL/min/BSA 06/01/2023 12:11 PM INSOLE BUFFER OWAT Comment: Estimated GFR calculated using the 2020 CKD_EPI creatinine equation. Calcium, Total, P 9.3 8.8 - 10.2 mg/dL 06/01/2023 12:11 PM INSOLE BUFFER OWAT Glucose, P 144(H) 70 - 140 mg/dL 06/01/2023 12:11 PM INSOLE BUFFER OWAT Blood (Blood, Venous) 06/01/2023 8:07 AM INSOLE BUFFER 06/01/2023 11:11 AM INSOLE BUFFER Laly Dickey P.A.-C. LAB BLOOD ADD-O N [facility] [address] [place] [address], [facility] [place] OWAT [facility] in [place] [address] [place] [address] * BI Breast Screening Bilateral with Tomosynthesis (03/26/2023 1:09 PM CDT) Anatomical Region Laterality Modality Breast, Breast Imaging RST L OS, Breast Imaging ARZ LOS, Breast Imaging FLA LOS Bilateral Mammography 03/30/2023 12:0 1 PM CDT Impressions 03/30/2023 12:02 PM CDT Negative. RECOMMENDATION: ??Annual Screening Mammogram ASSESSMENT: ??BI-RADS: 1: Negative. Narrative 03/30/2023 12:02 PM CDT EXAM: ??BI BREAST SCREENING BILATERAL WITH TOMOSYNTHESIS Current study was evaluated with a Computer Aided Detection (CAD) system. INDICATION: ??Screening mammogram. COMPARISON: ??Prior exam(s) were available and reviewed for comparison. DENSITY: ??b. There are scattered areas of fibroglandular density. FINDINGS: ??No mammographic findings of malignancy. Procedure Note Walter Navarro M.D. - 03/30/2023 EXAM: BI BREAST SCREENING BILATERAL WITH TOMOSYNTHESIS Current study was evaluated with a Computer Aided Detection (CAD) system. INDICATION: Screening mammogram. COMPARISON: Prior exam(s) were available and reviewed for comparison. DENSITY: b. There are scattered areas of fibroglandular density. FINDINGS: No mammographic findings of malignancy. IMPRESSION: Negative. RECOMMENDATION: Annual Screening Mammogram ASSESSMENT: BI-RADS: 1: Negative. Laly Dickey P.A.-C. IMG BI PROCEDUR ES * (ABNORMAL) Lipid Panel (02/26/2023 7:55 AM CDT) Triglycerides 171(H) mg/dL 02/26/2023 12:04 PM CDT OWAT Comment: ----REFERENCE VALUE---- Normal: <150 mg/dL Borderline High: 150-199 mg/dL High: 200-499 mg/dL Very High: > or =500 mg/dL Cholesterol, Total 156 mg/dL 2022 12:04 PM CDT OWAT Comment: ----REFERENCE VALUE---- Desirable: < 200 mg/dL Borderline High: 200 - 239 mg/dL High: > or = 240 mg/dL Cholesterol, LDL, Calculated 74 mg/dL 02/26/2023 12:04 PM CDT OWAT Comment: ----REFERENCE VALUE---- Desirable: <100 mg/dL Above Desirable: 100-129 mg/dL Borderline High: 130-159 mg/dL High: 160-189 mg/dL Very High: >=190 mg/dL ----ADDITIONAL INFORMATION---- LDL cholesterol calculated using the [place]/NIH equation. Cholesterol, HDL 53 >=50 mg/dL 02/27/20 12:04 PM CDT OWAT Cholesterol, Non-HDL, Calculated 103 mg/dL 02/26/2023 12:04 PM CDT OWAT Comment: ----REFERENCE VALUE---- Desirable: <130 mg/dL Above Desirable: 130-159 mg/dL Borderline High: 160-189 mg/dL High: 190-219 mg/dL Very High: > or =220 mg/dL Fasting (8 HR or more) Yes 02/26/2023 11:22 AM CDT OWAT Blood (Blood, Venous) 02/26/2023 7:55 AM CDT 02/26/2023 11:22 AM CDT Laly Dickey P.A.-C. LAB BLOOD ADD-O N [facility] [address] [place] [address], [facility] [place] OWAT [facility] in [place] [address] [place] [address] * Albumin, Random, Urine (08/24/2022 8:27 AM CDT) Microalbumin <12.0 mg/L 08/24/2022 12:51 PM CDT OWAT Comment:If clinically indica jim, contact the lab for additional testing. Creatinine 58 mg/dL 08/24/2022 12:51 PM CDT OWAT Albumin/Creatinine Ratio <21 <25 mg/g 08/24/2022 12:51 PM CDT OWAT Comment: This ratio may not correspond with the reference range because one or both of the values used to calculate the ratio was above or below the quantification limits. Urine (Urine, Midstream) 08/24/2022 8:27 AM CDT 08/24/2022 11:33 AM CDT Laly Dickey P.A.-C. LAB URINE ORDER NEO [facility] [address] [place] [address], [place] [facility] [facility] in [place] [address] [place] [address] from Last 3 Months or Most Recently Relevant to Health Maintenance Care Teams Harvest Manager Relationship Specialty Start Date End Date Laly Dickey P.A.-C. [address] [place] [address] NATASHA Gonzalez [phone] PCP - General Internal Medicine 07/28/22
--- OUTSIDE RECORDS SUMMARY | 2023-10-10 14:43 | XMS_ITS | Referral Summary ---
Author Name Unknown Organization [facility] Address [address] [place] [address] Care Team Providers Care Electro Mechanical Technician Name Role Phone Laly Dickey P.A.-C. Primary Care Provider Source Comments Patient records contain information from all sites at [facility]. For routine questions regarding patient records, call [phone] during business hours, M-F 8:00 AM - 5:00 PM Central Time. Record requests for emergency care only can be directed to [phone] at any time.[facility] Encounters Date Type Department Care Team Description 10/01/2023 Orders Only Department of Community Internal Medicine in [address] [phone] Laly Dickey P.A.-C. Loss Memory (Primary Dx) 09/30/2023 Refill Department of Community Internal Medicine in [place], [place] [address] [place] [address] Laly Dickey P.A.-Radha Med Refill 09/28/2023 2:31 PM CDT - 09/28/2023 11:59 PM CDT Hospital Encounter Department of Radiology in [place], [place] [address] [place] [phone] Laly Dickey P.A.-Radha Loss Memory Discharge Disposition: Home or Self Care 09/21/2023 Clinical Communication Department of Community Internal Medicine in [place], [place] [address] [place] [address] Laly Dickey P.A.-C. PandaDoc Form (Freeppie DM test strips) 09/17/2023 Clinical Communication Department of Community Internal Medicine in [address] [address] Laly Dickey P.A.-CKavya 09/13/2023 Refill Department of Community Internal Medicine in [address] [address] Laly Dickey P.A.-CKavya Med Refill 09/09/2023 Clinical Communication Department of Community Internal Medicine in [address] [address] Laly Dickey P.A.-C. Order Request 09/07/2023 2:17 PM CDT - 09/07/2023 11:59 PM CDT Hospital Encounter Department of Laboratory Medicine in [address] [address] Laly Dickey P.A.-C. Loss Memory Discharge Disposition: Home or Self Care 09/07/2023 Refill Department of Community Internal Medicine in [address] [address] Laly Dickey P.AKavya-C. Med Refill 09/07/2023 1:40 PM CDT Office Visit Department of Community Internal Medicine in [address] [address] Laly Dickey P.A.-C. Loss Memory (Primary Dx) 08/28/2023 Refill Department of Community Internal Medicine in [address] [phone] Valentino Quispe M.D. Med Refill 08/28/2023 Refill Department of Community Internal Medicine in [address] [phone] Laly Dickey P.A.-C. Med Refill 08/27/2023 Clinical Communication Department of Community Internal Medicine [place] [address] [place] [address] Feli Rollins APRN, C.N.P. Rx Prior Authorization (Omeprazole) 08/26/2023 Clinical Communication Pharmacy Prior Auth RO [phone] [facility] 08/25/2023 Clinical Communication Department of Community Internal Medicine in [address] [place] [address] Laly Dickey P.A.-C. 08/13/2023 Clinical Communication Department of Community Internal Medicine in [address] [place] [address] Laly Dickey P.A.-C. 08/11/2023 Clinical Communication Department of Community Internal Medicine in [address] [place] [address] Laly Dickey P.A.-C. Communication 08/09/2023 Refill Department of Community Internal Medicine in [address] [place] [address] Laly Dickey P.A.-C. Med Refill 07/31/2023 Refill Department of Community Internal Medicine in [address] [address] Laly Dickey P.A.-C. Med Refill 07/16/2023 Refill Department of Community Internal Medicine in [address] [address] Laly Dickey P.A.-C. Med Refill 07/12/2023 Refill Department of Community Internal Medicine in [address] [place] [address] Laly Dickey P.AKavya-C. Med Refill from Last 3 Months Allergies Active Allergy Reactions Criticality Noted Date [...] Ultra-Fine Short Pen Needle 31 gauge x 5/16 needle USE DIRECTED 3 Active HumaLOG KwikPen [...] Right 09/08/2022 Overview: Consult with Orthopedics in [place] August 2022. Patient elected for surgical intervention [...] Resolved Date Hypertension Essential Primary 10/06/2006 12/27/2022 Immunizations Name Administration Dates Next Due HZV (ZOSTAVAX) 02/15/2013 HepB Adult (HEPLISAV-B) 06/02/2023 Influenza TIV (IM) 04/02/2006 Influenza high dose QV(65 ye ars or older) (PF) 03/19/2023,02/09/2022,03/17/2021,2019,03/01/2019,03/22/2018 Influenza, Seasonal, Injectable 04/02/2006 Influenza, Unspecified 02/15/2013,2011,03/19/2011,2009,02/14/2009,04/03/2008,03/24/2007 PCV13 03/22/2018 PPSV23 03/29/2019,02/15/2013,02/24/2012 RZV (SHINGRIX) 07/14/2019,05/11/2019 SARS-COV-2 (COVID-19) - PFIZ ER (Discontinued)(12 years or older) 03/19/2023(Deferred: Not available from flight engineer helicopter) Td (Adult), adsorbed 12/01/2022 Tdap 06/12/2014,02/15/2013 influenza high dose (65 year s or older) (PF) 03/22/2018 influenza vaccine quad (FLUZONE/FLUARIX) (6 months and older)(PF) 03/02/2017,03/10/2016,02/13/2015,2013 Social History Tobacco Use Types Packs/Day Years [...] money to buy more. Never true 12/19/19 Within the past 12 months, t he [...] your living situation today? I have a [facility] place to live 12/18/2022 Sex and [...] 171 cm (5' 7.32) 06/02/2023 8:15 AM PULMONARY DISEASE SPECIALIST Body Mass Index 37.58 06/02/2023 8:15 AM PULMONARY DISEASE SPECIALIST Plan of Treatment Upcoming Encounters Date Type Department Care Team (Late st Contact Info) Description 12/01/2023 9:10 AM CDT Appointment Department of Laboratory Medicine in [address] [phone] Laly Dickey P.A.-CKavya [address] [place] [phone] 12/01/2023 9:20 AM CDT Appointment Department of Laboratory Medicine in [address] [phone] Laly Dickey P.A.-CKavya [address] [place] [phone] 12/06/2023 10:40 AM CDT Office Visit Department of Community Internal Medicine in [address] [phone] Laly Dickey P.AKavya-CKavya [address] [place] [phone] 12/29/2023 2:30 PM CDT Comprehensive Visit Department of Neurology in [place], [place] [address] [place] [address] Otis Metz M.D. [address] [place] [address] Scheduled Procedures Name Priority Associated Diagnoses Date/Ti me ARTHROPLASTY TOTAL REVERSE SHOULDER Fracture 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 Medical Devices Implanted Type Area Tea Tree Farmer Device Identifier Shelf Expiration Date Model / [...] A1C, B Routine 06/01/2023 8:0 7 AM PULMONARY DISEASE SPECIALIST Diabetes Mellitus Type 2 With Diabetic Polyneuropathy (HCC) BASIC METABOLIC PANEL, S/P Routine 06/01/2023 8:07 AM PULMONARY DISEASE SPECIALIST Chronic Kidney Disease (CKD), Stage 3b Glomerular [...] assessment was performed on an independent computer wrister using Chevia software. The clinical indication for performing the post-processing was dementia. Review of the quality control coordinator images demonstrates adequate segmentation of the hippocampi. [...] andassessment was performed on an independent computer wrister usingChevia software. The clinical indication for performing thepost-processing was dementia. Review of the quality control coordinator images demonstrates adequate segmentation of the hippocampi. [...] severe multifocal brain atrophy with a nonspecificpattern. aLly Dickey P.A.-C. IMG MRI PROCEDU RES * [...] Laly Dickey P.A.-C. LAB BLOOD ADD-O N [facility] [address] [place] [address], [facility] in [place] [address], [place] [address] * Thyroid Function [place] (09/07/2023 2:27 PM CDT) TSH, Sensitive 2.7 0.3 - 4.2 mIU/L 09/07/2023 6:29 PM CDT [facility] Blood (Blood, Venous) 09/07/2023 2:27 PM CDT 09/07/2023 5:59 PM CDT Laly Dickey P.A.-C. LAB BLOOD ADD-O N [facility] [address] [place] [address], [facility] in [place] [address] [place] [address] * (ABNORMAL) Pernicious Anemia [place] (09/07/2023 2:27 PM CDT) Vitamin B12 Assay, S >1400(H) 180 - 914 ng/L 09/08/2023 10:37 AM CDT [facility] Blood (Blood, Venous) 09/07/2023 2:27 PM CDT 09/08/2023 7:42 AM CDT Narrative [facility] - 09/08/2023 10:37 AM CDT Specimen Information: Specimen ID: [id number] Specimen Type: Blood Specimen Collection Start Date: 09/07/2023 ??2:27 PM Specimen Received Date: 09/08/2023 ??7:42 AM Specimen ID: [id number] Specimen Type: Blood Specimen Collection Start Date: 09/07/2023 ??2:27 PM Specimen Received Date: 09/08/2023 ??7:02 AM Laly Dickey P.A.-C. LAB BLOOD NON A DD-ON Performing Organization Address City/[facility]/ZIP Co de Phone Number [facility] [address] [place] [address] [facility] [address] [place] [address] * (ABNORMAL) Hemoglobin A1c (06/01/2023 8:07 AM PULMONARY DISEASE SPECIALIST) Hemoglobin A1c, B 7.0(H) 4.2 - 5.6 % 06/01/2023 11:56 AM PULMONARY DISEASE SPECIALIST OWAT Comment: Hemoglobin A1c values greater than or equal to 6.5 percent are diagnostic for diabetes mellitus. ??Diagnosis should be confirmed by repeat testing. ??In diabetic patients, HbA1c goals should be discussed with healthcare provider. Blood (Blood, Venous) 06/01/2023 8:07 AM PULMONARY DISEASE SPECIALIST 06/01/2023 11:11 AM PULMONARY DISEASE SPECIALIST Laly Dickey P.A.-C. LAB BLOOD ADD-O N Performing Organization Address City/[facility]/ZIP Co de Phone Number [facility] [address] [place] [address], [facility] [facility] [place] [address], [place] [address] * (ABNORMAL) Basic Metabolic Panel (06/01/2023 8:07 AM PULMONARY DISEASE SPECIALIST) Potassium, P 4.5 3.6 - 5.2 mmol/L 06/01/2023 12:11 PM PULMONARY DISEASE SPECIALIST OW[facility] Sodium, P 141 135 - 145 mmol/L 06/01/2023 12:11 PM PULMONARY DISEASE SPECIALIST OWAT Chloride, P 102 98 - 107 mmol/L 06/01/2023 12:11 PM PULMONARY DISEASE SPECIALIST OWAT Bicarbonate, P 27 22 - 29 mmol/L 06/01/2023 12:11 PM PULMONARY DISEASE SPECIALIST OWAT Anion Gap, P 12 7 - 15 06/01/2023 12:11 PM PULMONARY DISEASE SPECIALIST OWAT BUN (Blood Urea Nitrogen), P 16 6 - 21 mg/dL 06/01/2023 12:11 PM PULMONARY DISEASE SPECIALIST OWAT Creatinine 1.32(H) 0.59 - 1.04 mg/dL 06/01/2023 12:11 PM PULMONARY DISEASE SPECIALIST OWAT Estimated GFR (eGFR) 43(L) >=60 mL/min/BSA 06/01/2023 12:11 PM PULMONARY DISEASE SPECIALIST OWAT Comment: Estimated GFR calculated using the 2020 CKD_EPI creatinine equation. Calcium, Total, P 9.3 8.8 - 10.2 mg/dL 06/01/2023 12:11 PM PULMONARY DISEASE SPECIALIST OWAT Glucose, P 144(H) 70 - 140 mg/dL 06/01/2023 12:11 PM PULMONARY DISEASE SPECIALIST [facility] Blood (Blood, Venous) 06/01/2023 8:07 AM PULMONARY DISEASE SPECIALIST 06/01/2023 11:11 AM PULMONARY DISEASE SPECIALIST Laly Dickey P.A.-C. LAB BLOOD ADD-O N [facility] [address] [place] [address], [facility] OWAT [facility] in [place] [address] [place] [address] * BI Breast Screening Bilateral with Tomosynthesis [...] Screening Mammogram ASSESSMENT: BI-RADS: 1: Negative. Laly ABRAHAM BI BALDEMAR ES * (ABNORMAL) Lipid Panel (02/26/2023 7:55 [...] Laly Dickey P.A.-C. LAB BLOOD ADD-O N [facility] [address] [place] [address], [place] [facility] [facility] in [place] [address] [place] [address] * Albumin, Random, Urine (08/24/2022 8:27 AM [...] Laly Dickey P.A.-C. LAB URINE ORDER NEO Performing Organization Address City/[facility]/ZIP Co de Phone Number [facility] [address] [place] [address], [place] [facility] [facility] in [place] [address] [place] [address] from Last 3 Months or Most Recently Relevant to Health Maintenance Care Teams Electro Mechanical Technician Relationship Specialty Start Date End Date Laly Dickey P.A.-C. [address] [place], [place] [address]NATASHA Johnson [phone] PCP - General Internal Medicine 07/28/22
--- OUTSIDE RECORDS SUMMARY | 2023-10-10 14:43 | XMS_ITS ---
Author Name Unknown Organization [facility] Address [address] [place] [address] Care Team Providers Care Offset Plate Preparation Supervisor Name Role Phone Unavailable Unavailable Unavailable Surgery Details Not on file Complications Check Surgery Details section. Procedure Estimated Blood Loss Check Surgery Details section. Procedure Findings Check Surgery Details section. Procedure Specimens Taken Check Surgery Details section.
--- OUTSIDE RECORDS SUMMARY | 2023-10-10 14:43 | XMS_ITS | Encounter Summary ---
Author Name Unknown Organization [facility] Address [address] [place] [address] Care Team Providers Care Sap Bobj Developer Name Role Phone Laly Dickey P.A.-C. Primary Care Provider Reason for Referral * Outpatient (Routine) - Authorized Specialty Diagnoses / Procedures Referred By Nemo t Referred To Contact Neurology Diagnoses Loss Memory Laly Dickey P.A.-C. [address] [place] [address] [facility] Region Referral ID Status Reason Start Date Expiration Date V isits Requested Visits Authorized [id number] Authorized 10/01/2023 04/01/2025 1 1 Encounter Details Date Type Department Care Team (Late st Contact Info) Description 10/01/2023 Orders Only Department of Community Internal Medicine in [place], [place] [address] [place] [address] Laly Dickey P.A.-C. [address] [place] [address] Loss Memory (Primary Dx) Social History Tobacco Use Types Packs/Day Years [...] your living situation today? I have a [place] place to live 12/18/2022 Sex and Gender Information Value Date Recorded Sex Assigned at Female 03/19/2023 10:10 AM CDT Gender Identity Female 03/19/2023 10:10 AM CDT Sexual Orientation Not on file documented as of this encounter Plan of Treatment Upcoming Encounters Date Type Department Care Team (Late st Contact Info) Description 12/01/2023 9:10 AM CDT Appointment Department of Laboratory Medicine in [address] [phone] Laly Dickey, P.A.-C. [address] [place] [phone] 12/01/2023 9:20 AM CDT Appointment Department of Laboratory Medicine in [address] [phone] Laly Dickey, P.A.-C. [address] [place] [phone] 12/06/2023 10:40 AM CDT Office Visit Department of Community Internal Medicine in [address] [phone] Laly Dickey, P.A.-C. [address] [place] [address] 12/29/2023 2:30 PM CDT Comprehensive Visit Department of Neurology in [place], [place] [address] [place] [phone] Otis Metz M.D. [address] [place] [phone] Scheduled Procedures Name Priority Associated Diagnoses Date/Ti me ARTHROPLASTY TOTAL REVERSE SHOULDER Fracture 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 Scheduled Referrals Name Type Priority Associated Diagnoses Orde r Schedule Neurology - ICS consult (clinic) Outpatient Referral Routine Loss Memory Expected: 10/01/2023, Expires: 12/31/2024 documented as of this encounter Visit Diagnoses Diagnosis Loss Memory- Primary documented in this encounter Additional Health Concerns Assessment Noted Time PHQ-9 Depression Total Score: 0 03/01/20 23 8:30 AM CDT documented as of this encounter Care Teams Sap Bobj Developer Relationship Specialty Start Date End Date Laly Dickey P.A.-C. [address] [place] [phone] PCP - General Internal Medicine 07/28/22 documented as of this encounter
--- OUTSIDE RECORDS SUMMARY | 2023-10-10 14:43 | XMS_ITS | Encounter Summary ---
Author Name Unknown Organization [facility] Address [address] [place] [address] Care Team Providers Care Heel Room Supervisor Name Role Phone Laly Dickey P.A.-C. Primary Care Provider Reason for Visit * Reason Comments Med Refill Encounter Details Date Type Department Care Team (Late st Contact Info) Description 09/30/2023 Refill Department of Community Internal Medicine in [place], [place] [address] [facility] [place] [address] Laly Dickey P.A.-C. [address] [place] [address] Med Refill Social History Tobacco Use Types Packs/Day Years [...] your living situation today? I have a [facility] place to live 12/18/2022 Sex and Gender Information Value Date Recorded Sex Assigned at Female 03/19/2023 10:10 AM CDT Gender Identity Female 03/19/2023 10:10 AM CDT Sexual Orientation Not on file documented as of this encounter Miscellaneous Notes * Telephone Encounter - Lindy Singh L.P.N. - 10/04/2023 4:01 PM CDT Name of person contacted: Patient Relationship to patient: Not applicable Call back number: See EMR Wire Inserter: Not applicable Information provided: Patient notified of results and recommendations as listed below by Laly Dickey. personal financial counselor/patient received and understood education/information provided: Yes personal financial counselor/patient agreed to the Plan of Care: Yes * Telephone Encounter - Leilani Mckinney L.P.N. - 10/04/2023 1:46 PM CDT Controlled substance renewal for Tramadol 50 mg: No nursing concerns Renewal is pended per the controlled substance prescribing plan located in synopsis Date last renewed (start date): 08/30/2023 Last provider visit: 09/07/2023 Last urine drug screen: 03/19/2023 ; Next due: 02/2024 Screenings due: PEG, nursing to completed in wrap up Next provider visit due: 02/2024 Chronic Opioid therapy agreement last reviewed/signed: 03/01/2023 This prescription may be filled on 10/04/2023, and next renewal may be on or after 11/01/2023 documented in this encounter Plan of Treatment Upcoming Encounters Date Type Department Care Team (Late st Contact Info) Description 12/01/2023 9:10 AM CDT Appointment Department of Laboratory Medicine in [address] [phone] Laly Dickey P.A.-C. [address] [place] [phone] 12/01/2023 9:20 AM CDT Appointment Department of Laboratory Medicine in [address] [phone] Laly Dickey P.A.-C. [address] [facility] [place] [phone] 12/06/2023 10:40 AM CDT Office Visit Department of Community Internal Medicine in [place], [place] [address] [facility] [phone] Laly Dickey P.A.-C. [address] [facility] [address] 12/29/2023 2:30 PM CDT Comprehensive Visit Department of Neurology in [place], [place] [address] [place] [phone] Otis Metz M.D. [address], [place] [phone] Scheduled Procedures Name Priority Associated Diagnoses Date/Ti me ARTHROPLASTY TOTAL REVERSE SHOULDER Fracture 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 documented as of this encounter Visit Diagnoses Diagnosis Pain Shoulder Right documented in this encounter Additional Health Concerns Assessment Noted Time PHQ-9 Depression Total Score: 0 03/01/20 8:30 AM CDT documented as of this encounter Care Teams Heel Room Supervisor Relationship Specialty Start Date End Date Laly Dickey P.A.-C. [address] [facility] [phone] PCP - General Internal Medicine 07/28/22 documented as of this encounter
--- OUTSIDE RECORDS SUMMARY | 2023-10-10 14:44 | XMS_ITS | Encounter Summary ---
Author Name Unknown Organization [facility] Address [address] [place] [address] Care Team Providers Care Telecommunications Operator Name Role Phone Laly Dickey P.A.-C. Primary Care Provider Reason for Visit * Reason Onset Date Comments Rx Prior Authorization 08/27/2023 Omeprazol e Encounter Details Date Type Department Care Team (Latest Contact Info) Description 08/27/2023 Clinical Communication Department of Community Internal Medicine in [place], [place] [address] [place] [phone] Feli Rollins APRN, C.N.P. [address] [place] [phone] Rx Prior Authorization (Omeprazole) Social History Tobacco Use Types Packs/Day Years [...] your living situation today? I have a [facility] place to live 12/18/2022 Sex and Gender Information Value Date Recorded Sex Assigned at Female 03/19/2023 10:10 AM CDT Gender Identity Female 03/19/2023 10:10 AM CDT Sexual Orientation Not on file documented as of this encounter Miscellaneous Notes * Telephone Encounter - Lindy Singh L.PKavyaN. - 08/30/2023 5:10 PM CDT SUBJECTIVE CHIEF COMPLAINT / REASON FOR CALL Rx Prior Authorization (Omeprazole) PLAN The following information was provided: Called and notified patient of updated prescription. Information/Education: patient/caller able to teach back The following references were used: provider Laly Dickey * Telephone Encounter - Lindy Singh L.P.N. - 08/30/2023 2:12 PM CDT SUBJECTIVE CHIEF COMPLAINT / REASON FOR CALL Rx Prior Authorization (Omeprazole) PLAN The following information was provided: Called patient to verify where the rx for Omeprazole was to be sent to. Patient stated the rx was to be sent to [facility] in [place]. Notified patient [facility] called in regards to medication and aprior authorization. Patient stated she has never heard of this pharmacy. Patient also stated she takes two 20mg tablets of Omeprazole in the morning and two 20mg tablets in the evening. Patient is re questing this be updated on her prescription as she keeps running out. Information/Education: patient/caller able to teach back The following references were used: nursing clinical judgement documented in this encounter Plan of Treatment Upcoming Encounters Date Type Department Care Team (Late st Contact Info) Description 12/01/2023 9:10 AM CDT Appointment Department of Laboratory Medicine in [place], [place] [address] [place] [phone] Laly Dickey P.A.-C. [address] [place] [phone] 12/01/2023 9:20 AM CDT Appointment Department of Laboratory Medicine in [place], [place] [address] [place] [phone] Laly Dickey P.A.-C. 300 [facility] [place] [phone] 12/06/2023 10:40 AM CDT Office Visit Department of Community Internal Medicine in [place], [place] [address] [facility] [place] [place] [phone] Laly Dickey P.A.-C. 300 [facility] [place] [phone] 12/29/2023 2:30 PM CDT Comprehensive Visit Department of Neurology in [place], [place] [address] [phone] Otis Metz M.D. [address] [place] [phone] Scheduled Procedures Name Priority Associated Diagnoses Date/Ti me ARTHROPLASTY TOTAL REVERSE SHOULDER Fracture 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 documented as of this encounter Visit Diagnoses Not on filedocumented in this encounter Additional Health Concerns Assessment Noted Time PHQ-9 Depression Total Score: 0 03/01/20 8:30 AM CDT documented as of this encounter Care Teams Telecommunications Operator Relationship Specialty Start Date End Date Laly Dickey P.A.-C. [address] [place], [place] [address] [phone] PCP - General Internal Medicine 07/28/22 documented as of this encounter
--- OUTSIDE RECORDS SUMMARY | 2023-10-10 14:44 | XMS_ITS | Encounter Summary ---
Author Name Unknown Organization [facility] Address [address] [place] [address] Care Team Providers Care Director Of Veterans Affairs Name Role Phone Laly Dickey P.A.-C. Primary Care Provider Encounter Details Date Type Department Care Team (Latest Contact Info) Description 09/07/2023 2:17 PM CDT - 09/07/2023 11:59 PM CDT Hospital Encounter Department of Laboratory Medicine in [place], [place] 300 [place] [phone] Laly Dickey P.A.-C. 300 [facility] [place] [address] Loss Memory Discharge Disposition: Home or Self [...] your living situation today? [facility] 12/18/2022 Sex and [...] 31 gauge x 5/16 needle USE DIRECTED 11/07/2022 diclofenac sodium (VOLTAREN) [...] SKIN TWICE DAILY 60 mL 3 04/23/2023 losartan (COZAAR) 50 mg tablet TAKE 1 [...] misc USE DEVICE FOUR TIMES DAILY 06/17/2022 polyethylene glycol (MIRALAX) 17 gram/dose oral powder [...] BY MOUTH DAILY 90 capsule 3 08/02/2023 OneTouch Verio test strips See Admin Instructions. 06/17/2022 09/13/2023 torsemide (DEMADEX) 20 mg tablet Take 4 tablets (80 mg total) by mouth daily. 270 tablet 3 11/26/2022 09/08/2023 traMADoL (ULTRAM) 50 mg tabletIndications:Chr onic Pain/Nonacute Pain Take 1 tablet (50 mg total) by mouth at bedtime as needed for pain Indications: Chronic Pain/Nonacute Pain. 28 tablet 09/08/2023 10/04/2023 documented as of this encounter Plan of Treatment Upcoming Encounters Date Type Department Care Team (Late st Contact Info) Description 12/01/2023 9:10 AM CDT Appointment Department of Laboratory Medicine in [address] [phone] Laly Dickey P.A.-C. 300 [place] [address] 12/01/2023 9:20 AM CDT Appointment Department of Laboratory Medicine in [address] [phone] Laly Dickey P.AKavya-Radha 300 [place] [phone] 12/06/2023 10:40 AM CDT Office Visit Department of Community Internal Medicine in [address] [phone] Laly Dickey P.AAzarC. 300 [facility] [place], [place] [phone] 12/29/2023 2:30 PM CDT Comprehensive Visit Department of Neurology in [place], [place] [address] [place] [address] Otis Metz M.D. [address] [place] [address] Scheduled Procedures Name Priority Associated Diagnoses Date/Ti me ARTHROPLASTY TOTAL REVERSE SHOULDER Fracture 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 documented as of this encounter Procedures Procedure Name Priority Date/Time Associated Diagnosis Comments HEPATIC FUNCTION PANEL, S Routine 09/07/2023 2:27 PM CDT Loss Memory THYROID FUNCTION CASCADE, S Routine 09/07/2023 2:27 PM CDT Loss Memory PERNICIOUS ANEMIA CASCADE, S Routine 09/07/2023 2:27 PM CDT Loss Memory documented in this encounter Results * Hepatic Function Panel (09/07/2023 2:27 PM [...] - 7.9 g/dL 09/07/2023 6:57 PM CDT [facility] Blood (Blood, Venous) 09/07/2023 2:27 PM CDT 09/07/2023 5:59 PM CDT Laly Dickey P.A.-C. LAB BLOOD ADD-O N Performing Organization Address City/[facility]/ZIP Co de Phone Number [facility] [address] [place] [address], [facility] [place] [address] [place] [address] * (ABNORMAL) Pernicious Anemia [place] (09/07/2023 2:27 PM CDT) Pathologist [facility] Vitamin B12 Assay, S >1400(H) 180 - 914 ng/L 09/08/2023 10:37 AM CDT [facility] Blood (Blood, Venous) 09/07/2023 2:27 PM CDT 09/08/2023 7:42 AM CDT Narrative [facility] - 09/08/2023 10:37 AM CDT Specimen Information: Specimen ID: [id number] Specimen Type: Blood Specimen Collection Start Date: 09/07/2023 ??2:27 PM Specimen Received Date: 09/08/2023 ??7:42 AM Specimen ID: [id number] Specimen Type: Blood Specimen Collection Start Date: 09/07/2023 ??2:27 PM Specimen Received Date: 09/08/2023 ??7:02 AM Laly Dickey P.A.-C. LAB BLOOD NON A DD-ON Performing Organization Address City/[facility]/ZIP Co de Phone Number [facility] [address] [address] [facility] [address] [address] * Thyroid Function [place] (09/07/2023 2:27 PM CDT) Pathologist [facility] TSH, Sensitive 2.7 0.3 - 4.2 mIU/L 09/07/2023 6:29 PM CDT [facility] Blood (Blood, Venous) 09/07/2023 2:27 PM CDT 09/07/2023 5:59 PM CDT Laly Dickey P.A.-C. LAB BLOOD ADD-O N [facility] [address] [place] [address], [facility] [place] [address] [place] [address] documented in this encounter Visit Diagnoses Diagnosis Loss Memory documented in this encounter Additional Health Concerns Assessment Noted Time PHQ-9 Depression Total Score: 0 03/01/20 8:30 AM CDT documented as of this encounter Care Teams Director Of Veterans Affairs Relationship Specialty Start Date End Date Laly Dickey P.A.-C. [address] [place] [address] [place] [phone] PCP - General Internal Medicine 07/28/22 documented as of this encounter
--- OUTSIDE RECORDS SUMMARY | 2023-10-10 14:44 | XMS_ITS | Encounter Summary ---
Author Name Unknown Organization [facility] Address [address] [place] [address] Care Team Providers Care Documentation Consultant Name Role Phone Laly Dickey P.A.-C. Primary Care Provider Reason for Visit * Reason Comments Med Refill Encounter Details Date Type Department Care Team (Late st Contact Info) Description 07/10/2023 Refill Department of Community Internal Medicine in [place], [place] 300 [facility] [place] [phone] Laly Dickey P.A.-C. 300 [place] [phone] Med Refill Social History Tobacco [...] your living situation today? I have a [facility] place to live 12/18/2022 Sex and Gender Information Value Date Recorded Sex Assigned at Female 03/19/2023 10:10 AM CDT Gender Identity Female 03/19/2023 10:10 AM CDT Sexual Orientation Not on file documented as of this encounter Plan of Treatment Upcoming Encounters Date Type Department Care Team (Late Contact Info) Description 12/01/2023 9:10 AM CDT Appointment Department of Laboratory Medicine in [place], [place] 300 [facility] [place] [place] [phone] Laly Dickey P.A.-C. 300 [facility] [place] [phone] 12/01/2023 9:20 AM CDT Appointment Department of Laboratory Medicine in [place], [place] 300 [place] [phone] Laly Dickey P.A.-C. 300 [place] [phone] 12/06/2023 10:40 AM CDT Office Visit Department of Community Internal Medicine in [place], [place] 300 [place] [phone] Laly Dickey P.A.-C. 300 [place] [phone] 12/29/2023 2:30 PM CDT Comprehensive Visit Department of Neurology in [place], [place] [address] [place] [phone] Otis Metz M.D. [address] [place] [phone] Scheduled Procedures Name Priority Associated Diagnoses Date/Ti me ARTHROPLASTY TOTAL REVERSE SHOULDER Fracture 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 documented as of this encounter Visit Diagnoses Not on filedocumented in this encounter Additional Health Concerns Assessment Noted Time PHQ-9 Depression Total Score: 0 03/01/20 23 8:30 AM CDT documented as of this encounter Care Teams Documentation Consultant Relationship Specialty Start Date End Date Laly Dickey P.A.-C. [address] [place] [address] [place] [phone] PCP - General Internal Medicine 07/28/22 documented as of this encounter
--- OUTSIDE RECORDS SUMMARY | 2023-10-10 14:44 | XMS_ITS | Encounter Summary ---
Author Name Unknown Organization [facility] Address [address] [place] [address] Care Team Providers Care Manager Local Name Role Phone Laly Dickey P.A.-C. Primary Care Provider Encounter Details Date Type Department Care Team (Late st Contact Info) Description 09/17/2023 Clinical Communication Department of Community Internal Medicine in [place], [place] 300 [facility] [place] [phone] Laly Dickey P.A.-C. 300 [facility] [place] [phone] Social History Tobacco Use Types Packs/Day Years [...] your living situation today? I have a [facility] place to live 12/18/2022 Sex and Gender Information Value Date Recorded Sex Assigned at Female 03/19/2023 10:10 AM CDT Gender Identity Female 03/19/2023 10:10 AM CDT Sexual Orientation Not on file documented as of this encounter Miscellaneous Notes * Telephone Encounter - Vee Soares L.P.N. - 09/17/2023 11:16 AM CDT SUBJECTIVE CHIEF COMPLAINT / REASON FOR CALL No chief complaint on file. Information Discussed Called and spoke with [facility]. They do have the prescription that was sent on 09/13/2023for patient's test strips. Pharmacist states that Medicare is requiring a new CME form be completedand signed by patient's physician in order for the test strips to be covered. They will fax us the form for completion. Fax number confirmed with pharmacist. Called and informed patient of this inform ation. PLAN Disposition/Recommendation: recommended continue engagement in self-management activities Information/Education: patient/caller able to teach back Caller agreeable to plan of care: yes The following references were used: nursing clinical judgement documented in this encounter Plan of Treatment Upcoming Encounters Date Type Department Care Team (Late st Contact Info) Description 12/01/2023 9:10 AM CDT Appointment Department of Laboratory Medicine in [address] [phone] Laly Dickey P.A.-Radha 300 [place] [phone] 12/01/2023 9:20 AM CDT Appointment Department of Laboratory Medicine in [address] [phone] Laly Dickey P.AKavya-CKavya 300 [place] [phone] 12/06/2023 10:40 AM CDT Office Visit Department of Community Internal Medicine in [address] [phone] Laly Dickey P.AKavya-CKavya 300 [place] [phone] 12/29/2023 2:30 PM CDT Comprehensive Visit Department of Neurology in [place], [place] [address] [place] [address] Otis Metz M.D. [address] [place] [address] Scheduled Procedures Name Priority Associated Diagnoses Date/Ti me ARTHROPLASTY TOTAL REVERSE SHOULDER Fracture 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 documented as of this encounter Visit Diagnoses Not on filedocumented in this encounter Additional Health Concerns Assessment Noted Time PHQ-9 Depression Total Score: 0 03/01/20 8:30 AM CDT documented as of this encounter Care Teams Manager Local Relationship Specialty Start Date End Date Laly Dickey P.A.-C. [address] [place] [address] [place] [phone] PCP - General Internal Medicine 07/28/22 documented as of this encounter
--- OUTSIDE RECORDS SUMMARY | 2023-10-10 14:44 | XMS_ITS | Encounter Summary ---
Author Name Unknown Organization [facility] Address [address] [place] [address] Care Team Providers Care Ip Litigation Paralegal Name Role Phone Laly Dickey P.A.-C. Primary Care Provider Encounter Details Date Type Department Care Team (Late st Contact Info) Description 08/25/2023 Clinical Communication Department of Community Internal Medicine in [place], [place] 300 [facility] [place] [phone] Laly Dickey P.A.-C. 300 [facility] [phone] Social History Tobacco Use Types Packs/Day Years [...] your living situation today? I have a [facility] place to live 12/18/2022 Sex and Gender Information Value Date Recorded Sex Assigned at Female 03/19/2023 10:10 AM CDT Gender Identity Female 03/19/2023 10:10 AM CDT Sexual Orientation Not on file documented as of this encounter Plan of Treatment Upcoming Encounters Date Type Department Care Team (Late st Contact Info) Description 12/01/2023 9:10 AM CDT Appointment Department of Laboratory Medicine in [place], [place] 300 [facility] [place] [phone] Laly Dickey P.A.-C. 300 [facility] [phone] 12/01/2023 9:20 AM CDT Appointment Department of Laboratory Medicine in [place], [place] 300 [facility] [place] [phone] Laly Dickey P.A.-C. 300 [place] [phone] 12/06/2023 10:40 AM CDT Office Visit Department of Community Internal Medicine in [place], [place] 300 [facility] [place] [phone] Laly Dickey P.A.-C. 300 [place] [phone] 12/29/2023 2:30 PM CDT Comprehensive Visit Department of Neurology in [place], [place] [address] [phone] Otis Metz M.D. [address] [phone] Scheduled Procedures Name Priority Associated Diagnoses Date/Ti oh ARTHROPLASTY TOTAL REVERSE SHOULDER Fracture 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 documented as of this encounter Visit Diagnoses Not on filedocumented in this encounter Additional Health Concerns Assessment Noted Time PHQ-9 Depression Total Score: 0 03/01/20 23 8:30 AM CDT documented as of this encounter Care Teams Ip Litigation Paralegal Relationship Specialty Start Date End Date Laly Dickey P.A.-C. [address] [place] [address] [place] [phone] PCP - General Internal Medicine 07/28/22 documented as of this encounter
--- OUTSIDE RECORDS SUMMARY | 2023-10-10 14:44 | XMS_ITS | Encounter Summary ---
Author Name Unknown Organization [facility] Address [address] [place] [address] Care Team Providers Care Tanker Driver Name Role Phone Laly Dickey P.A.-C. Primary Care Provider Reason for Visit * Reason Onset Date Comments PandaDoc Form 09/21/2023 [facility] DM martha t strips Encounter Details Date Type Department Care Team (Latest Contact Info) Description 09/21/2023 Clinical Communication Department of Community Internal Medicine in [place], [place] 300 [facility] [place] [phone] Laly Dickey P.A.-C. 300 [place] [phone] PandaDoc Form ([facility] DM test strips) Social History Tobacco Use Types Packs/Day Years [...] your living situation today? I have a [facility] place to live 12/18/2022 Sex and Gender Information Value Date Recorded Sex Assigned at Female 03/19/2023 10:10 AM CDT Gender Identity Female 03/19/2023 10:10 AM CDT Sexual Orientation Not on file documented as of this encounter Miscellaneous Notes * Telephone Encounter - Elsa Joaquin - 09/22/2023 8:52 AM CDT Form has been faxed back to the facility, copy sent to HIM. * Telephone Encounter - Elsa Joaquin - 09/21/2023 10:34 AM CDT Form was emailed to Laly Dickey for electronic review/signature. VAULT CASHIER: Raffi PHONE NUMBER: INFO REQUESTED: DM test strips INSTRUCTIONS: Fax when complete documented in this encounter Plan of Treatment Upcoming Encounters Date Type Department Care Team (Late st Contact Info) Description 12/01/2023 9:10 AM CDT Appointment Department of Laboratory Medicine in [address] [phone] Laly Dickey P.A.-C. 300 [place] [phone] 12/01/2023 9:20 AM CDT Appointment Department of Laboratory Medicine in [address] [phone] Laly Dickey P.A.-C. 300 [place] [phone] 12/06/2023 10:40 AM CDT Office Visit Department of Community Internal Medicine in [address] [phone] Laly Dickey P.A.-C. 300 [place] [phone] 12/29/2023 2:30 PM CDT Comprehensive Visit Department of Neurology in [place], [place] [address] [place] [address] Otis Metz M.D. [address] [place] [phone] Scheduled Procedures Name Priority Associated Diagnoses Date/Ti me ARTHROPLASTY TOTAL REVERSE SHOULDER Fracture 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 documented as of this encounter Visit Diagnoses Not on filedocumented in this encounter Additional Health Concerns Assessment Noted Time PHQ-9 Depression Total Score: 0 03/01/20 8:30 AM CDT documented as of this encounter Care Teams Tanker Driver Relationship Specialty Start Date End Date Laly Dickey P.A.-C. [address] [place] [address] [place] [phone] PCP - General Internal Medicine 07/28/22 documented as of this encounter
--- OUTSIDE RECORDS SUMMARY | 2023-10-10 14:44 | XMS_ITS | Encounter Summary ---
Author Name Unknown Organization [facility] Address [address] [place] [address] Care Team Providers Care Engineering Technology Instructor Name Role Phone Laly Dickey P.A.-C. Primary Care Provider Reason for Visit * Reason Comments Med Refill Encounter Details Date Type Department Care Team (Late st Contact Info) Description 09/07/2023 Refill Department of Community Internal Medicine in [place], [place] 300 [facility] [place] [phone] Laly Dickey P.A.-C. 300 [place] [phone] Med Refill Social History Tobacco [...] your living situation today? I have a [facility] place to live 12/18/2022 Sex and Gender Information Value Date Recorded Sex Assigned at Female 03/19/2023 10:10 AM CDT Gender Identity Female 03/19/2023 10:10 AM CDT Sexual Orientation Not on file documented as of this encounter Plan of Treatment Upcoming Encounters Date Type Department Care Team (Late Contact Info) Description 12/01/2023 9:10 AM CDT Appointment Department of Laboratory Medicine in [place], [place] 300 [facility] [phone] Laly Dickey P.A.-C. 300 [facility] [place] [phone] 12/01/2023 9:20 AM CDT Appointment Department of Laboratory Medicine in [place], [place] 300 [place] [phone] Laly Dickey P.A.-C. 300 [place] [phone] 12/06/2023 10:40 AM CDT Office Visit Department of Community Internal Medicine in [place], [place] 300 [place] [phone] Laly Dickey P.A.-C. 300 [place] [phone] 12/29/2023 2:30 PM CDT Comprehensive Visit Department of Neurology in [place], [place] [address] [place] [phone] Otis Metz M.D. [address] [place] [phone] Scheduled Procedures Name Priority Associated Diagnoses Date/Ti me ARTHROPLASTY TOTAL REVERSE SHOULDER Fracture 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 documented as of this encounter Visit Diagnoses Not on filedocumented in this encounter Additional Health Concerns Assessment Noted Time PHQ-9 Depression Total Score: 0 03/01/20 23 8:30 AM CDT documented as of this encounter Care Teams Engineering Technology Instructor Relationship Specialty Start Date End Date Laly Dickey P.A.-C. [address] [place] [address] [place] [phone] PCP - General Internal Medicine 07/28/22 documented as of this encounter
--- OUTSIDE RECORDS SUMMARY | 2023-10-10 14:44 | XMS_ITS | Encounter Summary ---
Author Name Unknown Organization [facility] Address [address] [place] [address] Care Team Providers Care Panelboard Assembler Name Role Phone Laly Dickey P.A.-C. Primary Care Provider Reason for Visit * Reason Comments Med Refill Encounter Details Date Type Department Care Team (Late st Contact Info) Description 07/16/2023 Refill Department of Community Internal Medicine in [place], [place] 300 [facility] [place] [phone] Laly Dickey P.A.-C. 300 [place] [phone] Med Refill Social History Tobacco [...] your living situation today? [facility] 12/18/2022 Sex and Gender Information Value Date Recorded Sex Assigned at Female 03/19/2023 10:10 AM CDT Gender Identity Female 03/19/2023 10:10 AM CDT Sexual Orientation Not on file documented as of this encounter Plan of Treatment Upcoming Encounters Date Type Department Care Team (Late Contact Info) Description 12/01/2023 9:10 AM CDT Appointment Department of Laboratory Medicine in [place], [place] 300 [place] [phone] Laly Dickey P.A.-C. 300 [facility] [place] [phone] 12/01/2023 9:20 AM CDT Appointment Department of Laboratory Medicine in [place], [place] 300 [place] [phone] Laly Dickey P.A.-C. 300 [place] [phone] 12/06/2023 10:40 AM CDT Office Visit Department of Community Internal Medicine in [place], [place] 300 [place] [phone] Laly Dickey P.A.-C. 300 [place] [phone] 12/29/2023 2:30 PM CDT Comprehensive Visit Department of Neurology in [place], [place] [address] [place] [phone] Otis Metz M.D. [address] [place] [phone] Scheduled Procedures Name Priority Associated Diagnoses Date/Ti me ARTHROPLASTY TOTAL REVERSE SHOULDER Fracture 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 documented as of this encounter Visit Diagnoses Not on filedocumented in this encounter Additional Health Concerns Assessment Noted Time PHQ-9 Depression Total Score: 0 03/01/20 23 8:30 AM CDT documented as of this encounter Care Teams Panelboard Assembler Relationship Specialty Start Date End Date Laly Dickey P.A.-C. [address] [place] [address] [place] [phone] PCP - General Internal Medicine 07/28/22 documented as of this encounter
--- OUTSIDE RECORDS SUMMARY | 2023-10-10 14:44 | XMS_ITS | Encounter Summary ---
Author Name Unknown Organization [facility] Address [address] [place] [address] Care Team Providers Care Composition Teacher Name Role Phone Laly Dickey P.A.-C. Primary Care Provider Reason for Visit * Reason Comments Med Refill Encounter Details Date Type Department Care Team (Late st Contact Info) Description 07/12/2023 Refill Department of Community Internal Medicine in [place], [place] 300 [facility] [place] [place] [address] Laly Dickey P.A.-C. 300 [place] [address] Med Refill Social History Tobacco [...] your living situation today? I have a [facility] place to live 12/18/2022 Sex and Gender Information Value Date Recorded Sex Assigned at Female 03/19/2023 10:10 AM CDT Gender Identity Female 03/19/2023 10:10 AM CDT Sexual Orientation Not on file documented as of this encounter Miscellaneous Notes * Telephone Encounter - Ro Redding L.PKavyaNKavya - 07/13/2023 2:17 PM GIN POLE OPERATOR See office visit notes from 06/02/2023, increased to 1 mg every 7 days, and prescription was sent to [facility] pharmacy POLE OPERATOR * Telephone Encounter - Katharina Brumfield - 07/13/2023 9:05 AM CST Nurse review: Med Refill Team is unable to forward request to provider; Discrepancy: Verification Required. Medication Discontinued. Primary Provider: Laly Dickey P.A.-C. Requested Prescriptions Pending Prescriptions Disp Refills Ozempic 0.25 mg or 0.5 mg (2 mg/3 mL) injection [Pharmacy Med Name: OZEMPIC (0.25 OR 0.5 MG/DOS 2 Solution Pen-injector] 3 mL 2 Sig: INJECT 0.5MG SUBCUTANEOUSLY EVERY 7 DAYS POLE OPERATOR documented in this encounter Plan of Treatment Upcoming Encounters Date Type Department Care Team (Late st Contact Info) Description 12/01/2023 9:10 AM CDT Appointment Department of Laboratory Medicine in [address] [phone] Laly Dickey P.A.-C. 300 [place] [address] 12/01/2023 9:20 AM CDT Appointment Department of Laboratory Medicine in [address] [phone] Laly Dickey P.A.-C. 300 [place] [address] 12/06/2023 10:40 AM CDT Office Visit Department of Community Internal Medicine in [address] [phone] Laly Dickey P.A.-C. 300 [facility] NATASHA Gonzalez [phone] 12/29/2023 2:30 PM CDT Comprehensive Visit Department of Neurology in [place], [place] [address] [place] [address] Otis Metz M.D. [address], [place] [phone] Scheduled Procedures Name Priority Associated Diagnoses Date/Ti me ARTHROPLASTY TOTAL REVERSE SHOULDER Fracture 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 documented as of this encounter Visit Diagnoses Not on filedocumented in this encounter Additional Health Concerns Assessment Noted Time PHQ-9 Depression Total Score: 0 03/01/20 8:30 AM CDT documented as of this encounter Care Teams Composition Teacher Relationship Specialty Start Date End Date Laly Dickey P.A.-C. 300 [place] [phone] PCP - General Internal Medicine 07/28/22 documented as of this encounter
--- OUTSIDE RECORDS SUMMARY | 2023-10-10 14:44 | XMS_ITS | Encounter Summary ---
Author Name Unknown Organization [facility] Address [address] [place] [address] Care Team Providers Care Supervisor Boilermaking Shop Name Role Phone Laly Dickey P.A.-C. Primary Care Provider Reason for Visit * Reason Comments Med Refill Encounter Details Date Type Department Care Team (Late st Contact Info) Description 08/28/2023 Refill Department of Community Internal Medicine in [place], [place] 300 [facility] [place] [address] Valentino Quispe M.D. [address] [place] [phone] Med Refill Social History Tobacco Use Types [...] your living situation today? I have a [facility] place to live 12/18/2022 Sex and Gender Information Value Date Recorded Sex Assigned at Female 03/19/2023 10:10 AM CDT Gender Identity Female 03/19/2023 10:10 AM CDT Sexual Orientation Not on file documented as of this encounter Miscellaneous Notes * Telephone Encounter - GoRo cardoso L.P.N. - 08/30/2023 4:27 PM CDT Controlled substance renewal for tramadol 50 mg: No nursing concerns Renewal is pended per the controlled substance prescribing plan located in the controlled substancesynopsis Date last renewed (start date): 08/11/2023 Last provider visit: 06/02/2023 Last urine drug screen: 03/19/2023 ; Next due: 03/19/2024 Screenings due: PEG, noted to do at upcoming visit Next provider visit due: scheduled for 09/07/2023 Chronic Opioid therapy agreement last reviewed/signed: 03/19/2023 This prescription may be filled on 09/08/2023, and next renewal may be on or after 10/06/2023 documented in this encounter Plan of Treatment Upcoming Encounters Date Type Department Care Team (Late st Contact Info) Description 12/01/2023 9:10 AM CDT Appointment Department of Laboratory Medicine in [address] [phone] Laly Dickey, PKavyaAKavya-CKavya 300 [place] [phone] 12/01/2023 9:20 AM CDT Appointment Department of Laboratory Medicine in [address] [phone] Laly Dickey P.AKavya-CKavya 300 [place] [phone] 12/06/2023 10:40 AM CDT Office Visit Department of Community Internal Medicine in [place], [place] 300 [place] [phone] Laly Dickey P.A.-CKavya 300 [place] [phone] 12/29/2023 2:30 PM CDT Comprehensive Visit Department of Neurology in [place], [place] [address] [place] [address] Otis Metz M.D. [address] [place] [phone] Scheduled Procedures Name Priority Associated Diagnoses Date/Ti me ARTHROPLASTY TOTAL REVERSE SHOULDER Fracture 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 documented as of this encounter Visit Diagnoses Diagnosis Pain Shoulder Right documented in this encounter Additional Health Concerns Assessment Noted Time PHQ-9 Depression Total Score: 0 03/01/20 8:30 AM CDT documented as of this encounter Care Teams Supervisor Boilermaking Shop Relationship Specialty Start Date End Date Laly Dickey P.A.-C. [address] [place] [address] [place] [phone] PCP - General Internal Medicine 07/28/22 documented as of this encounter
--- OUTSIDE RECORDS SUMMARY | 2023-10-10 14:44 | XMS_ITS | Encounter Summary ---
Author Name Unknown Organization [facility] Address [address] [place] [address] Care Team Providers Care Kiln Setter Name Role Phone Laly Dickey P.A.-C. Primary Care Provider Reason for Visit * Reason Onset Date Comments Communication 08/11/2023 Encounter Details Date Type Department Care Team (Late st Contact Info) Description 08/11/2023 Clinical Communication Department of Community Internal Medicine in [place], [place] 300 [facility] [place] [address] Laly Dickey P.A.-C. 300 [place] [address] Communication Social History Tobacco Use Types Packs/Day Years [...] your living situation today? I have a [facility] place to live 12/18/2022 Sex and Gender Information Value Date Recorded Sex Assigned at Female 03/19/2023 10:10 AM CDT Gender Identity Female 03/19/2023 10:10 AM CDT Sexual Orientation Not on file documented as of this encounter Miscellaneous Notes * Telephone Encounter - Juliana Cloud L.P.N. - 08/11/2023 2:25 PM CDT Left message for patient to return call to clinic. Does the patient need to speak to nursing? no Action needed: No paperwork has been received documented in this encounter Plan of Treatment Upcoming Encounters Date Type Department Care Team (Late st Contact Info) Description 12/01/2023 9:10 AM CDT Appointment Department of Laboratory Medicine in [address] [phone] Laly Dickey P.A.-C. 300 [place] [phone] 12/01/2023 9:20 AM CDT Appointment Department of Laboratory Medicine in [place], [place] 300 [place] [address] Laly Dickey P.A.-C. 300 [place] [phone] 12/06/2023 10:40 AM CDT Office Visit Department of Community Internal Medicine in [place], [place] 300 [place] [phone] Laly Dickey P.A.-C. 300 [place] [phone] 12/29/2023 2:30 PM CDT Comprehensive Visit Department of Neurology in [place], [place] [address] [place] [address] Otis Metz M.D. [address] [place] [address] Scheduled Procedures Name Priority Associated Diagnoses Date/Ti me ARTHROPLASTY TOTAL REVERSE SHOULDER Fracture 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 documented as of this encounter Visit Diagnoses Not on filedocumented in this encounter Additional Health Concerns Assessment Noted Time PHQ-9 Depression Total Score: 0 03/01/20 23 8:30 AM CDT documented as of this encounter Care Teams Kiln Setter Relationship Specialty Start Date End Date Laly Dickey P.A.-C. [address] [place] [phone] PCP - General Internal Medicine 07/28/22 documented as of this encounter
--- OUTSIDE RECORDS SUMMARY | 2023-10-10 14:44 | XMS_ITS | Encounter Summary ---
Author Name Unknown Organization [facility] Address [address] [place] [address] Care Team Providers Care Technical Assoc Name Role Phone Laly Dickey P.A.-C. Primary Care Provider Reason for Visit * Reason Comments Med Refill Encounter Details Date Type Department Care Team (Late st Contact Info) Description 07/31/2023 Refill Department of Community Internal Medicine in [place], [place] 300 [facility] [place] [address] Laly Dickey P.A.-C. 300 [place] [address] Med Refill Social History Tobacco [...] your living situation today? I have a [facility] place to live 12/18/2022 Sex and Gender Information Value Date Recorded Sex Assigned at Female 03/19/2023 10:10 AM CDT Gender Identity Female 03/19/2023 10:10 AM CDT Sexual Orientation Not on file documented as of this encounter Plan of Treatment Upcoming Encounters Date Type Department Care Team (Late Contact Info) Description 12/01/2023 9:10 AM CDT Appointment Department of Laboratory Medicine in [place], [place] 300 [facility] [place] [phone] Laly Dickey P.A.-C. 300 [facility] [place] [phone] 12/01/2023 9:20 AM CDT Appointment Department of Laboratory Medicine in [place], [place] 300 [place] [phone] Laly Dickey P.A.-C. 300 [place] [phone] 12/06/2023 10:40 AM CDT Office Visit Department of Community Internal Medicine in [place], [place] 300 [place] [phone] Laly Dickey P.A.-C. 300 [place] [phone] 12/29/2023 2:30 PM CDT Comprehensive Visit Department of Neurology in [place], [place] [address] [place] [phone] Otis Metz M.D. [address] [place] [phone] Scheduled Procedures Name Priority Associated Diagnoses Date/Ti me ARTHROPLASTY TOTAL REVERSE SHOULDER Fracture 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 documented as of this encounter Visit Diagnoses Not on filedocumented in this encounter Additional Health Concerns Assessment Noted Time PHQ-9 Depression Total Score: 0 03/01/20 23 8:30 AM CDT documented as of this encounter Care Teams Technical Assoc Relationship Specialty Start Date End Date Laly Dickey P.A.-C. [address] [place] [address] [place] [phone] PCP - General Internal Medicine 07/28/22 documented as of this encounter
--- OUTSIDE RECORDS SUMMARY | 2023-10-10 14:44 | XMS_ITS | Encounter Summary ---
Author Name Unknown Organization [facility] Address [address] [place] [address] Care Team Providers Care Truck Assembler Name Role Phone Laly Dickey P.A.-C. Primary Care Provider Reason for Visit * Reason Comments Med Refill Encounter Details Date Type Department Care Team (Late st Contact Info) Description 08/09/2023 Refill Department of Community Internal Medicine in [place], [place] [address] [facility] [place] [address] Laly Dickey P.A.-C. 300 [place] [phone] Med Refill Social History Tobacco [...] your living situation today? I have a [facility] place to live 12/18/2022 Sex and Gender Information Value Date Recorded Sex Assigned at Female 03/19/2023 10:10 AM CDT Gender Identity Female 03/19/2023 10:10 AM CDT Sexual Orientation Not on file documented as of this encounter Miscellaneous Notes * Telephone Encounter - Deana Mora L.P.N. - 08/11/2023 10:57 AM CDT Controlled substance renewal for Tramadol 50 mg: No nursing concerns Renewal is pended per the controlled substance prescribing plan located in the synopsis. Patient isrequesting a 90 day supply. Pended per plan for 28 day supply. Patient has upcomming appointment can discuss changing to 90 day at appointment. Date last renewed (start date): 07/06/23 (28 tablets) Last provider visit: 06/02/23 Last urine drug screen: 03/19/23 ; Next due: 03/19/24 Screenings due: PEG, will add to upcoming appointment Next provider visit due: appointment is scheduled 08/24/23 Chronic Opioid therapy agreement last reviewed/signed: 03/19/23 This prescription may be filled on 08/11/23, and next renewal may be on or after 09/08/23 (4 weeks) documented in this encounter Plan of Treatment Upcoming Encounters Date Type Department Care Team (Late st Contact Info) Description 12/01/2023 9:10 AM CDT Appointment Department of Laboratory Medicine in [address] [phone] Laly Dickey P.A.-C. 300 [place] [phone] 12/01/2023 9:20 AM CDT Appointment Department of Laboratory Medicine in [address] [phone] Laly Dickey P.A.-aRdha 300 [place] [phone] 12/06/2023 10:40 AM CDT Office Visit Department of Community Internal Medicine in [address] [phone] Laly Dickey P.AAzarC. 300 [facility] [place] [phone] 12/29/2023 2:30 PM CDT Comprehensive Visit Department of Neurology in [place], [place] [address] [place] [phone] Otis Metz M.D. 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 300 [facility] [place] [address] PCP - General Internal Medicine 07/28/22 documented as of this encounter
--- OUTSIDE RECORDS SUMMARY | 2023-10-10 14:44 | XMS_ITS | Encounter Summary ---
Author Name Unknown Organization [facility] Address [address] [place] [address] Care Team Providers Care Wound Care Center Consultant Name Role Phone Laly Dickey P.A.-C. Primary Care Provider Encounter Details Date Type Department Care Team (Late st Contact Info) Description 08/13/2023 Clinical Communication Department of Community Internal Medicine in [place], [place] 300 [facility] [place] [phone] Laly Dickey P.A.-C. 300 [facility] [place] [phone] Social History Tobacco Use Types Packs/Day Years [...] your living situation today? I have a [facility] place to live 12/18/2022 Sex and Gender Information Value Date Recorded Sex Assigned at Female 03/19/2023 10:10 AM CDT Gender Identity Female 03/19/2023 10:10 AM CDT Sexual Orientation Not on file documented as of this encounter Miscellaneous Notes * Telephone Encounter - Juliana Powell L.P.N. - 08/13/2023 12:22 PM CDT Laly, I see in the document viewer that there is paperwork for [employer] in [place], it appears it is waiting on a signature. I will print this for you to decide. I did research and Medicare does cover limited genetic testing. Stephani Hughes * Telephone Encounter - Leilani Perez - 08/13/2023 12:04 PM CDT This is likely a scam. Medicare does not cover genetic testing from these type of places. documented in this encounter Plan of Treatment Upcoming Encounters Date Type Department Care Team (Late st Contact Info) Description 12/01/2023 9:10 AM CDT Appointment Department of Laboratory Medicine in [address] [phone] Laly Dickey P.A.-Radha 300 [place] [phone] 12/01/2023 9:20 AM CDT Appointment Department of Laboratory Medicine in [address] [phone] Laly Dickey P.A.-Radha 300 [place] [phone] 12/06/2023 10:40 AM CDT Office Visit Department of Community Internal Medicine in [place], [place] 300 [place] [phone] Laly Dickey P.A.-CKavya 300 [place] [phone] 12/29/2023 2:30 PM CDT Comprehensive Visit Department of Neurology in [place], [place] [address] [place] [phone] Otis Metz M.D. [address] [place] [phone] Scheduled Procedures Name Priority Associated Diagnoses Date/Ti me ARTHROPLASTY TOTAL REVERSE SHOULDER Fracture 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 documented as of this encounter Visit Diagnoses Not on filedocumented in this encounter Additional Health Concerns Assessment Noted Time PHQ-9 Depression Total Score: 0 03/01/20 8:30 AM CDT documented as of this encounter Care Teams Wound Care Center Consultant Relationship Specialty Start Date End Date Laly Dickey P.A.-C. [address] [place] [address] [place] [phone] PCP - General Internal Medicine 07/28/22 documented as of this encounter
--- OUTSIDE RECORDS SUMMARY | 2023-10-10 14:44 | XMS_ITS | Encounter Summary ---
Author Name Unknown Organization [facility] Address [address] [place] [address] Care Team Providers Care Iron Pourer Name Role Phone Laly Dickey P.A.-C. Primary Care Provider Reason for Visit * Reason Comments Med Refill Encounter Details Date Type Department Care Team (Late st Contact Info) Description 09/13/2023 Refill Department of Community Internal Medicine in [place], [place] 300 [facility] [place] [phone] Laly Dickey P.A.-C. 300 [place] [phone] Med Refill Social History Tobacco [...] your living situation today? I have a [facility] place to live 12/18/2022 Sex and Gender Information Value Date Recorded Sex Assigned at Female 03/19/2023 10:10 AM CDT Gender Identity Female 03/19/2023 10:10 AM CDT Sexual Orientation Not on file documented as of this encounter Plan of Treatment Upcoming Encounters Date Type Department Care Team (Late Contact Info) Description 12/01/2023 9:10 AM CDT Appointment Department of Laboratory Medicine in [place], [place] 300 [facility] [place] [phone] Laly Dickey P.A.-C. 300 [facility] [place] [phone] 12/01/2023 9:20 AM CDT Appointment Department of Laboratory Medicine in [place], [place] 300 [place] [phone] Laly Dickey P.A.-C. 300 [place] [phone] 12/06/2023 10:40 AM CDT Office Visit Department of Community Internal Medicine in [place], [place] 300 [place] [phone] Laly Dickey P.A.-C. 300 [place] [phone] 12/29/2023 2:30 PM CDT Comprehensive Visit Department of Neurology in [place], [place] [address] [place] [phone] Otis Metz M.D. [address] [place] [phone] Scheduled Procedures Name Priority Associated Diagnoses Date/Ti me ARTHROPLASTY TOTAL REVERSE SHOULDER Fracture 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 documented as of this encounter Visit Diagnoses Not on filedocumented in this encounter Additional Health Concerns Assessment Noted Time PHQ-9 Depression Total Score: 0 03/01/20 23 8:30 AM CDT documented as of this encounter Care Teams Iron Pourer Relationship Specialty Start Date End Date Laly Dickey P.A.-C. [address] [place] [address] [place] [phone] PCP - General Internal Medicine 07/28/22 documented as of this encounter
--- OUTSIDE RECORDS SUMMARY | 2023-10-10 14:44 | XMS_ITS | Encounter Summary ---
Author Name Unknown Organization [facility] Address [address] [place] [address] Care Team Providers Care Automatic Silk Screen Printer Name Role Phone Laly Dickey P.A.-C. Primary Care Provider Reason for Visit * Reason Comments Med Refill Encounter Details Date Type Department Care Team (Late st Contact Info) Description 08/28/2023 Refill Department of Community Internal Medicine in [place], [place] 300 [facility] [place] [address] Laly Dickey P.A.-C. 300 [place] [phone] Med Refill Social History Tobacco [...] your living situation today? I have a [facility] place to live 12/18/2022 Sex and Gender Information Value Date Recorded Sex Assigned at Female 03/19/2023 10:10 AM CDT Gender Identity Female 03/19/2023 10:10 AM CDT Sexual Orientation Not on file documented as of this encounter Miscellaneous Notes * Telephone Encounter - Yaa Felton - 08/30/2023 11:04 AM CDT Sent 08/02/23. QTY:90 R:3. Refills Remain documented in this encounter Plan of Treatment Upcoming Encounters Date Type Department Care Team (Late st Contact Info) Description 12/01/2023 9:10 AM CDT Appointment Department of Laboratory Medicine in [address] [phone] Laly Dickey P.A.-CKavya 300 [place] [phone] 12/01/2023 9:20 AM CDT Appointment Department of Laboratory Medicine in [address] [phone] Laly Dickey P.A.-CKavya 300 [place] [phone] 12/06/2023 10:40 AM CDT Office Visit Department of Community Internal Medicine in [place], [place] 300 [place] [phone] Laly Dickey P.AKavya-CKavya 300 [place] [phone] 12/29/2023 2:30 PM CDT Comprehensive Visit Department of Neurology in [place], [place] [address] [place] [address] Otis Metz M.D. [address] [address] Scheduled Procedures Name Priority Associated Diagnoses Date/Ti me ARTHROPLASTY TOTAL REVERSE SHOULDER Fracture 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 documented as of this encounter Visit Diagnoses Not on filedocumented in this encounter Additional Health Concerns Assessment Noted Time PHQ-9 Depression Total Score: 0 03/01/20 8:30 AM CDT documented as of this encounter Care Teams Automatic Silk Screen Printer Relationship Specialty Start Date End Date Laly Dickey P.A.-C. 300 [place] [phone] PCP - General Internal Medicine 07/28/22 documented as of this encounter
--- OUTSIDE RECORDS SUMMARY | 2023-10-10 14:44 | XMS_ITS | Encounter Summary ---
Author Name Unknown Organization [facility] Address [address] [place] [address] Care Team Providers Care Sack Filler Name Role Phone Laly Dickey P.A.-C. Primary Care Provider Reason for Visit * Reason Onset Date Comments Order Request 09/09/2023 Encounter Details Date Type Department Care Team (Late st Contact Info) Description 09/09/2023 Clinical Communication Department of Community Internal Medicine in [place], [place] 300 [facility] [place] [phone] Laly Dickey P.A.-C. 300 [facility] [place] [phone] Order Request Social History Tobacco Use Types Packs/Day Years [...] your living situation today? I have a [facility] place to live 12/18/2022 Sex and Gender Information Value Date Recorded Sex Assigned at Female 03/19/2023 10:10 AM CDT Gender Identity Female 03/19/2023 10:10 AM CDT Sexual Orientation Not on file documented as of this encounter Plan of Treatment Upcoming Encounters Date Type Department Care Team (Late Contact Info) Description 12/01/2023 9:10 AM CDT Appointment Department of Laboratory Medicine in [place], [place] 300 [place] [phone] Laly Dickey P.A.-C. 300 [place] [phone] 12/01/2023 9:20 AM CDT Appointment Department of Laboratory Medicine in [place], [place] 300 [place] [phone] Laly Dickey P.A.-C. 300 [place] [address] 12/06/2023 10:40 AM CDT Office Visit Department of Community Internal Medicine in [address] [phone] Laly Dickey P.A.-C. 300 [place] [phone] 12/29/2023 2:30 PM CDT Comprehensive Visit Department of Neurology in [place], [place] [address] [phone] Otis Mezt M.D. [address] [phone] Scheduled Procedures Name Priority Associated Diagnoses Date/Ti me ARTHROPLASTY TOTAL REVERSE SHOULDER Fracture 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 documented as of this encounter Visit Diagnoses Not on filedocumented in this encounter Additional Health Concerns Assessment Noted Time PHQ-9 Depression Total Score: 0 03/01/20 23 8:30 AM CDT documented as of this encounter Care Teams Sack Filler Relationship Specialty Start Date End Date Laly Dickey P.A.-C. [address] [place] [phone] PCP - General Internal Medicine 07/28/22 documented as of this encounter
--- OUTSIDE RECORDS SUMMARY | 2023-10-10 14:44 | XMS_ITS | Encounter Summary ---
Author Name Unknown Organization [facility] Address [address] [place] [address] Care Team Providers Care Preparation Supervisor Freezing Name Role Phone Laly Dickey P.A.-C. Primary Care Provider Reason for Referral * MRI/CAT/PET Scan (Routine) - Closed Specialty Diagnoses / Procedures Referred By Nemo morales Referred To Contact Radiology Diagnoses Loss Memory Procedures MR Brain Dementia without and with IV Contrast MR Brain without and with IV Contrast Laly Dickey P.A.-C. 300 [place] [phone] [facility] Referral ID Status Reason Start Date Expiration Date Visits Re quested Visits Authorized [id number] Closed 09/09/2023 09/08/2024 1 1 Reason for Visit * Reason Comments Follow-up 3 month follow-up Memory Loss * Appointment Request (Routine) - Closed Specialty Diagnoses / Procedures Referred By Contmaura t Referred To Contact Community Internal Medicine Referral ID Status Reason Start Date Expiration Date Visits Re quested Visits Authorized [id number] Closed 08/11/2023 08/10/2024 1 1 Encounter Details Date Type Department Care Team ([facility] Contact Info) Description 09/07/2023 1:40 PM CDT Office Visit Department of Community Internal Medicine in [place], [place] 300 [place] [phone] Laly Dickey P.A.-C. 300 [place] [phone] Loss Memory (Primary Dx) Social History Tobacco [...] your living situation today? I have a [facility] place to live 12/18/2022 Sex and Gender Information Value Date Recorded Sex Assigned at Female 03/19/2023 10:10 AM CDT Gender Identity Female 03/19/2023 10:10 AM CDT Sexual Orientation Not on file documented as of this encounter Last Filed Vital Signs Vital Sign Reading Time Taken Comments Blood Pressure 107/71 09/07/2023 1:23 PM CDT Pulse 87 09/07/2023 1:23 PM CDT Temperature 35.8 ??C (96.5 ??F) 09/07/2023 1:23 PM CD T Respiratory Rate 16 09/07/2023 1:23 PM CDT Oxygen Saturation - - Inhaled Oxygen Concentration - - Weight 110 kg (242 lb 4.6 oz) 09/07/2023 1:23 PM CDT Height - - Body Mass Index 37.58 06/02/2023 8:15 AM FORMULA CLERK documented in this encounter Progress Notes * Laly Dickey P.A.-C. - 09/07/2023 1:40 PM CDT SUBJECTIVE CHIEF COMPLAINT/REASON FOR VISIT Chief Complaint Patient presents with Follow-up 3 month follow-up Memory Loss HISTORY OF PRESENT ILLNESS Anna Ortega is a pleasant 68 y.o. female with a past medical history of migraine headaches, chronic kidney disease stage IIIB, pulmonary nodule, and diabetes mellitus type 2 who presents to the clinic today to discuss memory concerns. Patient has been having concerns of memory loss for the past 2-3 years and worsening. Her children also feels she is losing her memory and encouraged her to come to the clinic. 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 She feels she notices memory loss a few times per week. She feels ambika is fried. She has a hard time remembering important dates and a hard time remembering to take her morning medications occasionally. She has no family history of dementia. The following portions of the patient's history were reviewed and updated as appropriate: current medications and problem list. Pertinent positive ROS are listed above in HPI. Patient Active Problem List Diagnosis Hyperlipidemia Mixed Venous Insufficiency Chronic Peripheral Pain Shoulder Right Obesity Body Mass Index 30-39.9 Adult Nodule Pulmonary Solitary Other Specified Anxiety Disorders Diabetes Mellitus Type 2 With Diabetic Polyneuropathy (HCC) Gastroesophageal Reflux Disease Without Esophagitis Chronic Obstructive Pulmonary Disease (HCC) Hypertension And Chronic Kidney Disease Stage 3 (HCC) Chronic Diastolic (Congestive) Heart Failure (HCC) Apnea Sleep Obstructive Fracture 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 Pain Low Back Chronic History Of Falling Chronic Kidney Disease (CKD), Stage 3b Glomerular Filtration Rate (GFR) 30 To 44 (HCC) Insomnia Migraine Headache Personal History Of Nicotine Dependence ALLERGIES/CONTRAINDICATIONS Allergies Allergen Reactions Adhesives [Adhesive] Hives (Reselect Reaction) and Rash Blisters Penicillin Hives (Reselect Reaction) Hospitalized Metformin Other (see comments) GI intolerance CURRENT MEDICATIONS Current Outpatient Medications: albuterol 90 mcg/actuation inhaler, Inhale 2 puffs every 4 (four) hours as needed for shortness of breath., Disp: 54 g, Rfl: 3 amitriptyline (ELAVIL) 50 mg tablet, TAKE 3 TABLETS(150 MG) BY MOUTH AT BEDTIME, Disp: 90 tablet, Rfl: [address] tablet, Take 81 mg by mouth at bedtime., Disp: , Rfl: BD Ultra-Fine Short Pen Needle 31 gauge x 5/16 needle, USE DIRECTED, Disp: , Rfl: diclofenac sodium (VOLTAREN) 1 % gel, Apply 4 g topically 4 (four) times a day as needed (Pain). Apply to right shoulder., Disp: 200 g, Rfl: 3 ezetimibe (ZETIA) 10 mg tablet, TAKE 1 TABLET(10 MG) BY MOUTH DAILY, Disp: 90 tablet, Rfl: 3 gabapentin (NEURONTIN) 300 mg capsule, Take 1 capsule (300 mg total) by mouth at bedtime., Disp: 90capsule, Rfl: 3 HumaLOG KwikPen Insulin 100 unit/mL injection, Inject 30 Units under the skin 3 (three) times a day. 30 U with each meal. Adjust as follows: < 120 - 2 U; 120- 179 no adjustment; 180-239 + 2 U; 240-299 + 4 U; 300-359 + 6 U; 360-419 + 8 Units; if > or = 420 >= + 10 Units., Disp: 15 mL, Rfl: 0 Levemir FlexPen 100 unit/mL (3 mL) injection, ADMINISTER 32 UNITS UNDER THE SKIN TWICE DAILY, Disp:60 mL, Rfl: 3 losartan (COZAAR) 50 mg tablet, TAKE 1 TABLET(50 MG) BY MOUTH DAILY, Disp: 90 tablet, Rfl: 3 meclizine (ANTIVERT) 12.5 mg tablet, TAKE 1 TABLET(12.5 MG) BY MOUTH THREE TIMES DAILY NEEDED FOR DIZZINESS, Disp: 270 tablet, Rfl: 0 multivit with minerals/lutein (MULTIVITAMIN 50 PLUS ORAL), Take by mouth daily., Disp: , Rfl: omeprazole (PriLOSEC) [address] capsule, Take 1 capsule (40 mg total) by mouth 2 (two) times a day before breakfast and dinner., Disp: 180 capsule, Rfl: 3 OneTouch Verio Reflect Meter [facility], USE DEVICE FOUR TIMES DAILY, Disp: , Rfl: OneTouch Verio test strips, See Admin Instructions., Disp: , Rfl: polyethylene glycol (MIRALAX) 17 gram/dose oral powder, Take 1 packet by mouth as needed., Disp: , Rfl: semaglutide (OZEMPIC) 1 mg/dose (4 mg/3 mL) injection, Inject 1 mg under the skin every 7 (seven) days., Disp: 6 mL, Rfl: 3 tiotropium (Spiriva Respimat) 2.5 mcg/actuation inhaler, Inhale 2 puffs daily., Disp: 12 g, Rfl: 3 torsemide (DEMADEX) 20 mg tablet, Take 4 tablets (80 mg total) by mouth daily., Disp: 270 tablet, Rfl: 3 [START ON 09/08/2023] traMADoL (ULTRAM) 50 mg tablet, Take 1 tablet (50 mg total) by mouth at bedtime as needed for pain Indications: Chronic Pain/Nonacute Pain., Disp: 28 tablet, Rfl: 0 venlafaxine XR (EFFEXOR-XR) 150 mg 24 hr capsule, TAKE 1 CAPSULE(150 MG) BY MOUTH DAILY, Disp: 90 capsule, Rfl: 3 atorvastatin (LIPITOR) 80 mg tablet, Take 1 tablet (80 mg total) by mouth daily., Disp: 90 tablet, Rfl: 3 OBJECTIVE VITAL SIGNS Vitals: 09/07/23 1323 BP: 107/71 Pulse: 87 Resp: 16 Temp: (!) 35.8 ??C PHYSICAL EXAMINATION General: Well-nourished, well-developed 68 y.o. in no apparent distress. Awake, alert, age appropriate. HEENT: Head is normocephalic, atraumatic. Pupils round and reactive bilaterally. EOM's intact. Conjunctivae and sclerae are clear. Oropharynx pink and moist without exudate or erythema. Skin: Warm, pink, and dry. Neurologic: Alert and oriented x3.CN II- XII intact. Bilateral patellar and Achilles tendon DTRs 2+/4+. Strength and tone normal in upper and lower extremities. ASSESSMENT / PLAN IMPRESSION/REPORT/PLAN: #1 Loss Memory Chronic and worsening. Kok[place] mental status exam performed during our visit today with a score of 31/38. Recently, she had a CBC and BMP completed without concerning findings. We updated TSH, [id number], and LFTs today which returned normal. We will proceed with MRI of the brain to rule out other causes of symptoms. We could consider transitioning her off of amitriptyline given this medication could be contributing to cognitive dysfunction however we will hold off on this for now as it seems to work well for migraine prophylaxis and insomnia. - Thyroid Function [place]; Future; Expected date: 09/07/2023 - Pernicious Anemia [place]; Future; Expected date: 09/07/2023 - Hepatic Function Panel; Future; Expected date: 09/07/2023 Other orders - Community Internal Medicine office visit (clinic) If symptoms worsen or do not improve, patient is instructed to seek further medical attention. All questions have been answered. Patient demonstrated understanding and verbalized agreement with the plan. Laly Dickey P.A.-C. documented in this encounter Plan of Treatment Upcoming Encounters Date Type Department Care Team (Late st Contact Info) Description 12/01/2023 9:10 AM CDT Appointment Department of Laboratory Medicine in [address] [place] [phone] Laly Dickey P.A.-C. 300 [place] [phone] 12/01/2023 9:20 AM CDT Appointment Department of Laboratory Medicine in [address] [place] [phone] Laly Dickey P.A.-C. 300 [place] [phone] 12/06/2023 10:40 AM CDT Office Visit Department of Community Internal Medicine in [address] [place] [phone] Laly Dickey P.A.-C. 300 [place] [phone] 12/29/2023 2:30 PM CDT Comprehensive Visit Department of Neurology in [place], [place] [address] [place] [phone] Otis Metz M.D. 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 The clinical indication for performing the post-processing was dementia. Review of the clinical quality manager images demonstrates adequate segmentation of the hippocampi. [...] andassessment was performed on an independent computer observer helper usingEXPO software. The clinical indication for performing thepost-processing was dementia. Review of the clinical quality manager images demonstrates adequate segmentation of the hippocampi. [...] Laly Dickey P.A.-C. LAB BLOOD ADD-O N [facility] [address] [place] [address], [place] [facility] [place] [address] [place] [address] * (ABNORMAL) Pernicious Anemia [place] (09/07/2023 2:27 PM CDT) Vitamin B12 Assay, S >1400(H) 180 - 914 ng/L 09/08/2023 10:37 AM CDT [facility] Blood (Blood, Venous) 09/07/2023 2:27 PM CDT 09/08/2023 7:42 AM CDT Narrative [facility] - 09/08/2023 10:37 AM CDT Specimen Information: Specimen ID: [id number] Specimen Type: Blood Specimen Collection Start Date: 09/07/2023 ??2:27 PM Specimen Received Date: 09/08/2023 ??7:42 AM Specimen ID: [id number] Specimen Type: Blood Specimen Collection Start Date: 09/07/2023 ??2:27 PM Specimen Received Date: 09/08/2023 ??7:02 AM Laly ParisiA.-C. LAB BLOOD NON A DD-ON Performing Organization Address City/[facility]/ZIP Co de Phone Number [facility] [address] [place] [address] [facility] [address] [place] [address] * Thyroid Function [place] (09/07/2023 2:27 PM CDT) TSH, Sensitive 2.7 0.3 - 4.2 mIU/L 09/07/2023 6:[address] [facility] Blood (Blood, Venous) 09/07/2023 2:27 PM CDT 09/07/2023 5:59 PM CDT Laly ParisiA.-C. LAB BLOOD ADD-O N Performing Organization Address City/[facility]/ZIP Co de Phone Number [facility] [address] [place] [address], [facility] [address] [facility] [place] [address] [place] [address] documented in this encounter Visit Diagnoses Diagnosis Loss Memory- Primary Loss Memory Loss Memory documented in this encounter Additional Health Concerns Assessment Noted Time PHQ-9 Depression Total Score: 0 03/01/20 8:30 AM CDT documented as of this encounter Care Teams Preparation Supervisor Freezing Relationship Specialty Start Date End Date Laly Dickey P.A.-C. [address] [place] [address] [place] [phone] PCP - General Internal Medicine 07/28/22 documented as of this encounter
--- OUTSIDE RECORDS SUMMARY | 2023-10-10 14:44 | XMS_ITS | Encounter Summary ---
Author Name Unknown Organization [facility] Address [address] [place] [address] Care Team Providers Care Retail Salesman Name Role Phone Laly Dickey P.A.-C. Primary Care Provider Reason for Visit * Reason Comments Med Refill Encounter Details Date Type Department Care Team (Late st Contact Info) Description 07/09/2023 Refill Department of Family Medicine, [facility], in [place], [place] 300 [place] [address] Laly Dickey P.A.-C. 300 [place] [phone] Med Refill Social History Tobacco [...] your living situation today? I have a [facility] place to live 12/18/2022 Sex and Gender Information Value Date Recorded Sex Assigned at Female 03/19/2023 10:10 AM CDT Gender Identity Female 03/19/2023 10:10 AM CDT Sexual Orientation Not on file documented as of this encounter Plan of Treatment Upcoming Encounters Date Type Department Care Team (Late st Contact Info) Description 12/01/2023 9:10 AM CDT Appointment Department of Laboratory Medicine in [place], [place] 300 [facility] [phone] Laly Dickey P.A.-C. 300 [facility] [place] [phone] 12/01/2023 9:20 AM CDT Appointment Department of Laboratory Medicine in [place], [place] 300 [place] [phone] Laly Dickey P.A.-C. 300 [place] [phone] 12/06/2023 10:40 AM CDT Office Visit Department of Community Internal Medicine in [place], [place] 300 [place] [address] Laly Dickey P.A.-C. 300 [place] [phone] 12/29/2023 2:30 PM CDT Comprehensive Visit Department of Neurology in [place], [place] [address] [phone] Otis Metz M.D. 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 [address] [place] [address] [place] [phone] PCP - General Internal Medicine 07/28/22 documented as of this encounter
--- OUTSIDE RECORDS SUMMARY | 2023-10-10 14:44 | XMS_ITS | Encounter Summary ---
Author Name Unknown Organization [facility] Address [address] [place] [address] Care Team Providers Care House Moving Supervisor Name Role Phone Laly Dickey P.A.-C. Primary Care Provider Encounter Details Date Type Department Care Team (Late st Contact Info) Description 08/26/2023 Clinical Communication Pharmacy Prior Auth RO [id number] Marleni Amaya Social History Tobacco Use Types Packs/Day Years [...] your living situation today? I have a [facility] place to live 12/18/2022 Sex and Gender Information Value Date Recorded Sex Assigned at Female 03/19/2023 10:10 AM CDT Gender Identity Female 03/19/2023 10:10 AM CDT Sexual Orientation Not on file documented as of this encounter Plan of Treatment Upcoming Encounters Date Type Department Care Team (Late st Contact Info) Description 12/01/2023 9:10 AM CDT Appointment Department of Laboratory Medicine in [place], [place] 300 [place] [phone] Laly Dickey P.A.-C. 300 [place] [phone] 12/01/2023 9:20 AM CDT Appointment Department of Laboratory Medicine in [place], [place] 300 [facility] [place] [phone] Laly Dickey P.A.-C. 300 [facility] [place] [address] 12/06/2023 10:40 AM CDT Office Visit Department of Community Internal Medicine in [place], [place] 300 [facility] [place] [phone] Laly Dickey P.A.-C. 300 [facility] [place] [phone] 12/29/2023 2:30 PM CDT Comprehensive Visit Department of Neurology in [place], [place] [address] [place] [phone] Otis Metz M.D. 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 300 [facility] [place] [phone] PCP - General Internal Medicine 07/28/22 documented as of this encounter
--- OUTSIDE RECORDS SUMMARY | 2023-10-10 14:45 | XMS_ITS | Encounter Summary ---
Author Name Unknown Organization [facility] Address [address] [place] [address] Care Team Providers Care Cutter Grinder Name Role Phone Laly Dickey P.A.-C. Primary Care Provider Reason for Visit * Reason Comments Med Refill Encounter Details Date Type Department Care Team (Late st Contact Info) Description 06/14/2023 Refill Department of Community Internal Medicine in [place], [place] 300 [facility] [place] [place] [address] Laly Dickey P.A.-C. 300 [place] [phone] Med Refill Social History Tobacco [...] living situation today? I have a [facility] place to live 12/18/2022 Sex and Gender Information Value Date Recorded Sex Assigned at Female 03/19/2023 10:10 AM CDT Gender Identity Female 03/19/2023 10:10 AM CDT Sexual Orientation Not on file documented as of this encounter Miscellaneous Notes * Telephone Encounter - Dejah Allen - 06/15/2023 7:45 AM CST Nurse review: Unable to forward request to provider; Discrepancy: Verification Required. MedicationDiscontinued. Primary Provider: Laly Dickey P.A.-C. Requested Prescriptions Pending Prescriptions Disp Refills Ozempic 0.25 mg or 0.5 mg (2 mg/3 mL) injection [Pharmacy Med Name: OZEMPIC (0.25 OR 0.5 MG/DOS 2 Solution Pen-injector] 3 mL 2 Sig: INJECT 0.5MG SUBCUTANEOUSLY EVERY 7 DAYS K TRAILER MECHANIC documented in this encounter Plan of Treatment Upcoming Encounters Date Type Department Care Team (Late st Contact Info) Description 12/01/2023 9:10 AM CDT Appointment Department of Laboratory Medicine in [address] [phone] Laly Dickey P.A.-C. 300 [place] [phone] 12/01/2023 9:20 AM CDT Appointment Department of Laboratory Medicine in [address] [phone] Laly Dickey P.A.-C. 300 [place] [phone] 12/06/2023 10:40 AM CDT Office Visit Department of Community Internal Medicine in [address] [phone] Laly Dickey P.A.-C. 300 [place] [phone] 12/29/2023 2:30 PM CDT Comprehensive Visit Department of Neurology in [place], [place] [address] [place] [phone] Otis Metz M.D. 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 [address] [place] [address] [facility] [place] [place] [phone] PCP - General Internal Medicine 07/28/22 documented as of this encounter
--- OUTSIDE RECORDS SUMMARY | 2023-10-10 14:45 | XMS_ITS | Encounter Summary ---
Author Name Unknown Organization [facility] Address [address] [place] [address] Care Team Providers Care Associate Director Regulatory Affairs Name Role Phone Laly Dickey P.A.-C. Primary Care Provider Reason for Visit * Reason Comments Med Refill Encounter Details Date Type Department Care Team (Late st Contact Info) Description 07/05/2023 Refill Department of Community Internal Medicine in [place], [place] [address] [facility] [place] [address] Laly Dickey P.A.-C. 300 [place] [phone] Med Refill Social History Tobacco [...] your living situation today? I have a [facility] place to live 12/18/2022 Sex and Gender Information Value Date Recorded Sex Assigned at Female 03/19/2023 10:10 AM CDT Gender Identity Female 03/19/2023 10:10 AM CDT Sexual Orientation Not on file documented as of this encounter Miscellaneous Notes * Telephone Encounter - Aleksandra Brito L.P.N. - 07/06/2023 12:38 PM FITTER PLACER Controlled substance renewal for Tramadol 50 mg: No nursing concerns Renewal is pended per the controlled substance prescribing plan located in Synopsis Date last renewed (start date): 06/02/2023 Last provider visit: 06/02/2023 Last urine drug screen: 03/19/2023 ; Next due: 02/2024 Screenings due: None Next provider visit due: 11/2023 Chronic Opioid therapy agreement last reviewed/signed: 03/19/2023 This prescription may be filled on 07/06/2023, and next renewal may be on or after 08/03/2023 ER PLACER * Telephone Encounter - Dejah Allen - 07/06/2023 6:29 AM CST Nurse review: Med Refill Team is unable to forward request to provider; Controlled Substance, CSA Primary Provider: Laly Dickey P.A.-C. Requested Prescriptions Pending Prescriptions Disp Refills traMADoL (ULTRAM) 50 mg tablet [Pharmacy Med Name: TRAMADOL 50MG TABLETS] 28 tablet Sig: TAKE 1 TABLET(50 MG) BY MOUTH AT BEDTIME NEEDED FOR PAIN ER PLACER documented in this encounter Plan of Treatment Upcoming Encounters Date Type Department Care Team (Late st Contact Info) Description 12/01/2023 9:10 AM CDT Appointment Department of Laboratory Medicine in [address] [phone] Laly Dickey P.A.-C. [address] [place] [phone] 12/01/2023 9:20 AM CDT Appointment Department of Laboratory Medicine in [address] [phone] Laly Dickey P.A.-C. 300 [place] [address] 12/06/2023 10:40 AM CDT Office Visit Department of Community Internal Medicine in [place], [place] [address] [facility] [place] [phone] Laly Dickey P.A.-C. [address] [facility] [place] [address] 12/29/2023 2:30 PM CDT Comprehensive Visit Department of Neurology in [place], [place] [address] [address] Otis Metz M.D. 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 300 [facility] [place] [phone] PCP - General Internal Medicine 07/28/22 documented as of this encounter
--- NOTE | 2023-10-10 14:53 | CT_ITS ---
Patient: RAJINDER VERMA Facility:?[facility] Patient ID:?[id number] Site Patient ID:?[id number]. Site :?[id number] Study:?CT-Chest w/o-10/10/2023 3:25:21 PM Ordering Physician:RENEE Final Report: INDICATION: Evaluate for pneumonia. TECHNIQUE: Noncontrast chest CT. COMPARISON: Chest radiograph from 10/10/2023. FINDINGS: Atherosclerotic changes of the thoracic aorta without aneurysm. Coronary artery calcifications are present indicating coronary artery disease. No pericardial effusion. Small mediastinal lymph nodes are not technically enlarged by imaging criteria. There is patchy infiltrate within the right lower lobe which likely reflects pneumonia. Pulmonary emphysema is present. There are areas of mild atelectasis present. 3 millimeter right upper lobe pulmonary nodule image number 16 of series 2. 6 millimeter right middle lobe pulmonary nodule image number 34 of series 2. 6 millimeter right lower lobe pulmonary nodule image number 63 of series 2. 2 millimeter nodule left upper lobe abutting the fissure on image number 42 of series 2. There is no pleural effusion or pneumothorax. Small hiatal hernia. Degenerative changes of the spine. Diffuse idiopathic skeletal hyperostosis changes are present. IMPRESSION: 1. Patchy infiltrate within the right lower lobe likely reflecting pneumonia. 2. Pulmonary emphysema. 3. A few small pulmonary micro nodules. Recommend CT follow-up in 6-12 months for re-evaluation versus comparison with outside prior chest CTs. Dictated by Eh Johnston MD @ 10/10/2023 3:51:34 PM Please note that all CT scans at this facility use dose modulation, iterative reconstruction, and/or weight-based dosing when appropriate to reduce radiation dose to as low as reasonably achievable. Dictated by: Eh Johnston MD @ 10/10/2023 15:51:39 Signed by:?Eh Johnston MD @10/10/2023 3:51:39 PM (Electronic Signature)
[2023-10-10 15:03] LABS: PCR FLU A Negative PCR FLU A (Negative); PCR FLU B Negative PCR FLU B (Negative); PCR RSV Negative PCR RSV (Negative); SARS PCR* Negative SARS-CoV-2 (Negative)
[2023-10-10 15:05] LABS: HCO3 VBG 29 mmol/L (21-28); PCO2 VBG 40 mmHG (40-50); PO2 VBG 40.1 mmHG (25-47); pH VBG 7.463 (7.32-7.43)
[2023-10-10 15:11] LABS: Troponin, Point-of-Care* 0.01 ng/ml (0.01-0.04)
[2023-10-10 15:19] LABS: Basophils Absolute Auto 0.04 K/uL (0.00-0.30); Basophils Percent Auto 0.5 % (0.0-3.0); Eosinophils Absolute Auto 0.16 K/uL (0.00-0.50); Hematocrit 35.7 % (33.0-51.0); Hemoglobin* 12.1 gm/dL (12.0-16.0); Immature Granulocytes Abs Auto 0.01 K/uL (0.00-0.30); Immature Granulocytes Pct Auto 0.1 %; Lymphocytes Percent Auto 13.7 % (20-44); Mean Corpuscular HGB Conc 34 gm/dL (32-36); Mean Corpuscular Hemoglobin 31 pg (26-34); Mean Corpuscular Volume 92 fL (80-100); Neutrophils Percent Auto 72.7 % (42.0-72.0); Platelet Count* 229 K/uL (140-440); RDW Coefficient of Variation % 12.5 % (11.5-15.5); Red Blood Count 3.88 m/uL (4.00-5.20); White Blood Count* 8.02 K/uL (4.50-11.00)
[2023-10-10 15:25] LABS: Slide Review Reflex No
[2023-10-10] MEDS: 0.9 % SODIUM CHLORIDE 500 ML 500 ML IV (15:25)
[2023-10-10 15:38] LABS: Albumin* 4.6 g/dL (3.3-5.0); Chloride* 98 mmol/L (96-114)
[2023-10-10 15:39] LABS: Potassium* 4.3 mmol/L (3.6-5.1); Sodium* 133 mmol/L (135-149)
[2023-10-10 15:41] LABS: Creatinine* 2.1 mg/dL (0.5-1.5); Est. Creatinine Clearance* 26.05; Estimated Glomerular Filt Rate 25 ml/min
[2023-10-10 15:42] LABS: Alanine Aminotransferase* 34 U/L (4-35); Alkaline Phosphatase* 76 U/L (40-150); Anion Gap 6 mEq/L (7-15); Aspartate Amino Transferase* 39 U/L (12-35); Bilirubin Direct* 0.1 mg/dL (0.0-0.5); Bilirubin Total* 0.5 mg/dL (0.1-1.5); Blood Urea Nitrogen* 39 mg/dL (7-30); Calcium* 8.8 mg/dL (8.4-10.6); Carbon Dioxide* 29 mmol/L (20-32); Glucose* 103 mg/dL (60-115)
[2023-10-10 15:45] LABS: C Reactive Protein* 1.8 mg/dL (0.5-1.0)
[2023-10-10 16:00] LABS: NT Pro B Type NatriureticPept* 66 pg/mL
[2023-10-10] MEDS: cefTRIAXone 1 GM in 0.9 % SODIUM CHLORIDE Mini-bag 100 ML IVPB (16:43)
[2023-10-10] MEDS: AZITHROMYCIN 100 MG/ML inj 500 MG IVPB (17:14)
--- NOTE | 2023-10-10 17:35 | PM.IMHP1 ---
Hospitalist- H&P: HPI History of Present Illness Date Seen: 10/10/23 Chief complaint: SOB COPD History Narrative: Anna Ortega is a 68 year old female with history of COPD, obesity, diabetes, stage 3 kidney disease, hypertension admitted through the emergency department with a 3 day history of coughing, dyspnea, wheezing. She has not had a fever. She does not have chest pain. She reports she was exposed were brother who has been ill with a respiratory illness. She reports no fever. No chest pain. Prior to 3 days ago she was generally doing well. She has a remote history of smoking having quit about 21 years ago. She takes albuterol and Spiriva for her COPD. She has never required oxygen. In 2020 she had fairly severe COPD and was hospitalized for 5 days. She was able to leave the hospital with out oxygen. She reports that her breathing is not been as good since that illness however. She does have a history of heart failure preserved ejection fraction. Her last echo was in 2019 showing ejection fraction 60%. She has a history of stable pulmonary nodules with her last chest CT for surveillance in May 2022 showing stability. Recommended annual screening since that time. She has sleep apnea but has not used CPAP for many years because she poorly tolerated it. Review of Systems Narrative: Other than symptoms above she has had no new illness or injury. [facility] Medical History (Updated 10/10/23 @ 17:56 by Lukas Santiago MD) Dizziness ?R42 - Dizziness and giddiness (ICD-10) Hyperlipidemia ?E78.5 - Hyperlipidemia, unspecified (ICD-10) Anxiety ?F41.9 - Anxiety disorder, unspecified (ICD-10) Gastroesophageal reflux ?K21.9 - Gastro-esophageal reflux disease without esophagitis (ICD-10) Obstructive sleep apnea ?G47.33 - Obstructive sleep apnea (adult) (pediatric) (ICD-10) Peripheral autonomic neuropathy due to diabetes mellitus ?E11.43 - Type 2 diabetes mellitus with diabetic autonomic (poly)neuropathy (ICD-10) Diabetes mellitus ?E11.9 - Type 2 diabetes mellitus without complications (ICD-10) Chronic back pain ?M54.9 - Dorsalgia, unspecified (ICD-10) ?G89.29 - Other chronic pain (ICD-10) Pulmonary nodule ?R91.1 - Solitary pulmonary nodule (ICD-10) Hypertension ?I10 - Essential (primary) hypertension (ICD-10) Comminuted right humeral fracture with nonunion ?S42.351K - Displaced comminuted fracture of shaft of humerus, right arm, subsequent encounter for fracture with nonunion (ICD-10) Chronic renal failure, stage 3b ?N18.32 - Chronic kidney disease, stage 3b (ICD-10) Obesity ?E66.9 - Obesity, unspecified (ICD-10) Heart failure with preserved ejection fraction ?I50.30 - Unspecified diastolic (congestive) heart failure (ICD-10) COPD (chronic obstructive pulmonary disease) ?J44.9 - Chronic obstructive pulmonary disease, unspecified (ICD-10) Surgical History (Updated 10/10/23 @ 17:46 by Lukas Santiago MD) Hx of shoulder surgery ?Z98.890 - Other specified postprocedural states (ICD-10) History of parathyroidectomy ?Z98.890 - Other specified postprocedural states (ICD-10) ?Z90.89 - Acquired absence of other organs (ICD-10) Family History (Updated 10/10/23 @ 17:48 by Lukas Santiago MD) Brother Diabetes Hx of CABG Sister Diabetes Father Lung cancer Prostate cancer Mother Lung cancer Heart disease Social History (Updated 10/10/23 @ 17:50 by Lukas Santiago MD) Narrative: Anna lives in [place] with her brother. She reports generally this has been going well. She has some disability because of her remote history of right shoulder injury, poorly healing humeral fracture. She walks without assistive device. She quit smoking about 21 years ago. She does not drink alcohol. Her daughter Lea is healthcare power of profiling machine operator. Code status is full Smoking Status: Never smoker How often do you have a drink containing alcohol: never How often do you have six or more drinks on one occasion: Never AUDIT-C Alcohol total score: 0 Non-prescribed substance use: denies use Meds Home Medications and Allergies Home Medications Medication Instructions Recorded Confirmed Type albuterol sulfate 90 mcg/actuation 2 puff inhalation Q4H PRN 10/10/23 10/10/23 History aerosol inhaler amitriptyline 50 mg tablet 150 mg PO HS 10/10/23 10/10/23 History aspirin 81 mg tablet,delayed 81 mg PO DAILY 10/10/23 10/10/23 History release atorvastatin 80 mg tablet 80 mg PO DAILY 10/10/23 10/10/23 History diclofenac sodium 1 % topical gel 4 g topical QID PRN 10/10/23 10/10/23 History ezetimibe 10 mg tablet 10 mg PO DAILY 10/10/23 10/10/23 History gabapentin 300 mg capsule 300 mg PO HS 10/10/23 10/10/23 History insulin detemir U-100 100 unit/mL 32 unit subcut BID 10/10/23 10/10/23 History (3 mL) subcutaneous pen (Levemir FlexPen) multivitamin with minerals 1 cap PO DAILY 10/10/23 10/10/23 History omeprazole 40 mg capsule,delayed 40 mg PO DAILY 10/10/23 10/10/23 History release semaglutide 0.25 mg or 0.5 mg (2 0.5 mg subcut .weekly 10/10/23 10/10/23 History mg/3 mL) subcutaneous pen injector (Ozempic) semaglutide 1 mg/dose (4 mg/3 mL) 1 mg subcut .weekly 10/10/23 10/10/23 History subcutaneous pen injector tiotropium bromide 2.5 2 inh inhalation Q24H 10/10/23 10/10/23 History mcg/actuation mist for inhalation (Spiriva Respimat) torsemide 20 mg tablet 80 mg PO DAILY 10/10/23 10/10/23 History tramadol 50 mg tablet 50 mg PO HS PRN 10/10/23 10/10/23 History venlafaxine 150 mg 150 mg PO DAILY 10/10/23 10/10/23 History capsule,extended release 24 hr Allergies Allergy/AdvReac Type Severity Reaction Status Date / Time adhesive tape Allergy Unknown Verified 10/10/23 14:16 Penicillins Allergy Unknown Verified 10/10/23 14:16 Exam Narrative: Exam Narrative: She is alert and appears in no distress. Tired appearing. She gives her own history but requires her daughter and the medical record to confirm significant portions of her past medical history and recent events. Head is without trauma. Eyes are normal. No facial asymmetry. Oropharynx with small airway. He dentulous. Neck is supple without mass or adenopathy. No jugular venous distension. Respirations are clear to auscultation except for the right base where she has an occasional crackle. There is no wheezing. She has diminished breath sounds and mildly prolonged expiratory phase. Cardiovascular: S1, S2, regular rate and rhythm. Abdomen: Bowel sounds active. Abdomen is soft without tenderness or mass. External genitalia normal. Extremities with trace edema bilaterally. She has significant skin changes from sun damaged skin. No open lesions. She moves all 4 extremities well. Const: Vital Signs, click to edit/add: Vital Signs - 24 hr 10/10/23 14:16 10/10/23 14:38 10/10/23 14:45 Temperature 100.3 F H Pulse Rate 106 H 102 H Pulse Rate [Pulse Oximeter] 104 H Respiratory Rate 26 H Blood Pressure Blood Pressure [Ri ght Upper Arm] 128/70 Pulse Oximetry 89 93 94 Oxygen Delivery Me thod Room Air Nasal Cannula Nasal Cannula Oxygen Flow Rate 2 2 10/10/23 15:21 10/10/23 15:26 10/10/23 15:30 Temperature Pulse Rate 102 H 101 H 100 Pulse Rate [Pulse Oximeter] Respiratory Rate Blood Pressure 121/71 Blood Pressure [Ri ght Upper Arm] Pulse Oximetry 92 94 94 Oxygen Delivery Me thod Nasal Cannula Nasal Cannula Nasal Cannula Oxygen Flow Rate 2 2 2 10/10/23 15:32 10/10/23 15:45 10/10/23 16:00 Temperature Pulse Rate 100 100 102 H Pulse Rate [Pulse Oximeter] Respiratory Rate Blood Pressure 135/71 Blood Pressure [Ri ght Upper Arm] Pulse Oximetry 96 96 94 Oxygen Delivery Me thod Nasal Cannula Nasal Cannula Nasal Cannula Oxygen Flow Rate 1 1 1 10/10/23 16:02 10/10/23 16:15 10/10/23 16:30 Temperature Pulse Rate 100 100 100 Pulse Rate [Pulse Oximeter] Respiratory Rate Blood Pressure 116/59 L Blood Pressure [Ri ght Upper Arm] Pulse Oximetry 93 93 92 Oxygen Delivery Me thod Nasal Cannula Nasal Cannula Nasal Cannula Oxygen Flow Rate 1 1 1 10/10/23 16:32 10/10/23 16:45 Temperature Pulse Rate 100 100 Pulse Rate [Pulse Oximeter] Respiratory Rate Blood Pressure 131/85 Blood Pressure [Ri ght Upper Arm] Pulse Oximetry 90 93 Oxygen Delivery Me thod Nasal Cannula Nasal Cannula Oxygen Flow Rate 1 1 Documenting provider has reviewed patient's vital signs: yes Hospitalist - H&P: Result Labs Labs: Short CBC 05/12/24 Range/Units 14:50 WBC 8.02 (4.50-11.00) K/uL Hgb 12.1 (12.0-16.0) gm/dL Hct 35.7 (33.0-51.0) % Plt Count 229 (140-440) K/uL BMP 10/10/23 14:50 Sodium 133 L Potassium 4.3 Chloride 98 Carbon Dioxide 29 BUN 39 H Creatinine 2.1 H Glucose 103 Calcium 8.8 Liver Function 10/10/23 Range/Units 14:50 Total Bilirubin 0.5 (0.1-1.5) mg/dL Direct Bilirubin 0.1 (0.0-0.5) mg/dL AST 39 H (12-35) U/L ALT 34 (4-35) U/L Alkaline Phosphatase 76 (40-150) U/L Albumin 4.6 (3.3-5.0) g/dL Imaging CT scan - chest: Radiologist's impression: IMPRESSION: 1. Patchy infiltrate within the right lower lobe likely reflecting pneumonia. 2. Pulmonary emphysema. 3. A few small pulmonary micro nodules. Recommend CT follow-up in 6-12 months for re-evaluation versus comparison with outside prior chest CTs. ([facility] records indicate pulmonary nodules that are stable as of May 2022 with recommended annual follow up.) Assessment and Plan Assessment and plan (1) Pneumonia: Status: Acute (2) Hypoxic respiratory failure: Problem comment: Primarily due to pneumonia. Secondary contributor is COPD. Status: Acute (3) COPD exacerbation: Status: Acute (4) Heart failure with preserved ejection fraction: Problem comment: Currently appears well compensated. Status: Acute (5) Obesity: Problem comment: Reports a weight loss of 95 lb in 3 years during which time she was on Trulicity and Ozempic and trying to lose weight Status: Acute Plan 5-year-old female with hypoxic respiratory failure due to community-acquired pneumonia with underlying COPD. Treat with ceftriaxone azithromycin inhaled bronchodilators and systemic corticosteroids. Patient reports diabetes is been fairly well controlled. While on prednisone will need close monitoring of this. Total Time Spent Total Time Spent: Total time spent today is 80 minutes, 60 minutes in coordination of care and discussing with patient, daughter and other providers ongoing evaluation management of kidney acquired pneumonia and hypoxia
[2023-10-10] MEDS: predniSONE 20 MG TABLET 60 MG PO (18:15)
[2023-10-10] MEDS: ATORVASTATIN CALCIUM 40 MG TABLET 80 MG PO (20:37)
[2023-10-10] MEDS: TRAMADOL HCL 50 MG TABLET PO (20:37)
[2023-10-10] MEDS: ACETAMINOPHEN 325 MG TABLET 650 MG PO (20:37)
[2023-10-10] MEDS: IPRAT-ALBUT 0.5-2.5 MG/3 ML NEB 1 NEB IH (20:37)
[2023-10-10] MEDS: GABAPENTIN 300 MG CAPSULE PO (20:37)
[2023-10-10] MEDS: ENOXAPARIN 40 MG/0.4 ML INJ SUBCUT (20:40)
[2023-10-10] MEDS: AMITRIPTYLINE 25 MG TABLET 150 MG PO (20:56)
[2023-10-10] MEDS: SODIUM CHLORIDE 0.9 % (FLUSH) 10 ML SYRINGE 5 ML IVF (21:04)
[2023-10-11] VITALS (8 sets, daily range): BP systolic 104–154; BP diastolic 46–93; PULSE 78–93; RESP 18–20; TEMP 36.8–37.1; O2SAT 92–99
--- NOTE | 2023-10-11 06:17 | PC.NURSE ---
End of shift [phone]: Pleasant and cooperative. Intermittent confusion noted, patient would periodically remove oxygen cannula and O2 sats decreased to low 80's, patient confusion clears with oxygen replaced and reorient PRN. Assist x 2 with pivot transfer to commode. Generalized pain well managed with current regimen. Upon arrival to floor patient temp 100.3, tylenol administered and patient has remained afebrile through the rest of shift. O2 decreased to 1.5L at 0315, patient able to maintain O2 sats around 92-93%, O2 then decreased to 1L at 0620 will continue to monitor.
[2023-10-11 08:10] LABS: Chloride* 102 mmol/L (96-114)
[2023-10-11 08:11] LABS: Potassium* 4.5 mmol/L (3.6-5.1); Sodium* 137 mmol/L (135-149)
[2023-10-11 08:13] LABS: Anion Gap 5 mEq/L (7-15); Carbon Dioxide* 30 mmol/L (20-32); Creatinine* 1.5 mg/dL (0.5-1.5); Est. Creatinine Clearance* 33.94; Estimated Glomerular Filt Rate 37 ml/min
[2023-10-11 08:14] LABS: Blood Urea Nitrogen* 31 mg/dL (7-30); Calcium* 9.1 mg/dL (8.4-10.6); Glucose* 149 mg/dL (60-115)
[2023-10-11] MEDS: OMEPRAZOLE 20 MG CAPSULE DR 40 MG PO (08:25)
[2023-10-11] MEDS: INSULIN ASPART 100 UNIT/ML SUBCUT ×3 (09:23→17:46)
[2023-10-11] MEDS: IPRAT-ALBUT 0.5-2.5 MG/3 ML NEB 1 NEB IH ×4 (09:24→20:45)
[2023-10-11] MEDS: TORSEMIDE 20 MG TABLET 80 MG PO (09:24)
[2023-10-11] MEDS: AZITHROMYCIN 250 MG TABLET 500 MG PO (09:25)
[2023-10-11] MEDS: predniSONE 20 MG TABLET 40 MG PO (09:25)
[2023-10-11] MEDS: EZETIMIBE 10 MG TABLET PO (09:25)
[2023-10-11] MEDS: MULTIVITAMIN/MINERALS 1 TABLET 1 TAB PO (09:25)
[2023-10-11] MEDS: ASPIRIN 81 MG TABLET EC PO (09:25)
[2023-10-11] MEDS: VENLAFAXINE HCL ER 37.5 MG CAPSULE 150 MG PO (09:26)
[2023-10-11] MEDS: SODIUM CHLORIDE 0.9 % (FLUSH) 10 ML SYRINGE 5 ML IVF ×2 (09:26→20:47)
[2023-10-11] MEDS: cefTRIAXone 1 GM in 0.9 % SODIUM CHLORIDE Mini-bag 100 ML IVPB (09:26)
--- NOTE | 2023-10-11 13:11 | RESP.RT ---
Addendum entered by Guera Lechuga RT, NUTRITION TECHNICIAN 10/11/23 13:12: Reviewed her breathing meds with her. She seems to have a good understanding of them. Talked about oxygen therapy, and that she does not qualify at this time. PT states she does not have any questions at this time. Original Note: Started PEP with Pt. worked well with it after reviewing with her a number of times. Pt with strong dry [facility] cough. BBS clear, decreased in bases. SPO2 spot checked 95% on RA.
--- NOTE | 2023-10-11 14:39 | P.IMPN_ITS ---
Progress Note: A&P Assessment and plan (1) Hypoxic respiratory failure: Problem details: Acute. Primarily due to pneumonia. Secondary contributor is COPD. Status: Acute (2) Pneumonia: Problem details: - afebrile overnight. Continue ceftriaxone and azithromycin. Continue nebs p.r.n.. Status: Acute (3) COPD exacerbation: Problem details: - improving. Continue prednisone. Monitor glucose carefully. Status: Acute (4) Heart failure with preserved ejection fraction: Problem details: Currently appears well compensated. Status: Chronic (5) Obstructive sleep apnea: Problem details: Stopped using CPAP years ago. Recommend re-evaluation with sleep specialist Status: Chronic (6) Diabetes mellitus: Problem details: Point of care glucoses are within inpatient goal, 140s to 180s. Continue home meds. Continue sliding scale insulin. Status: Chronic (7) Obesity: Problem details: Reports a weight loss of 95 lb in 3 years during which time she was on Trulicity and Ozempic and trying to lose weight Status: Chronic Subjective Time Seen by Provider: 07:47 Date Seen: 10/11/23 Interval history: Anna feels a little bit better today. She continues to have some shortness of breath with activity, but notices that the wheezing is better. Exam Narrative: Exam Narrative: General: No acute distress. Awake, alert, oriented x3. No pallor. No jaundice. Oropharynx: Clear. Mucous membranes moist. Cardiovascular: Regular rate and rhythm. No murmurs, gallops, or rubs. Respiratory: Clear to auscultation bilaterally. No wheezes or crackles. Abdomen: Bowel sounds present. Soft, nondistended, nontender. Extremities: Trace pedal edema. Const: Vital Signs, click to edit/add: Vital Signs - 24 hr 10/10/23 14:45 10/10/23 15:21 10/10/23 15:26 Temperature Pulse Rate 102 H 102 H 101 H Pulse Rate [Left P ulse Oximeter] Respiratory Rate Blood Pressure 121/71 Blood Pressure [Le ft Arm] Pulse Oximetry 94 92 94 Oxygen Delivery Me thod Nasal Cannula Nasal Cannula Nasal Cannula Oxygen Flow Rate 2 2 2 10/10/23 15:30 10/10/23 15:32 10/10/23 15:45 Temperature Pulse Rate 100 100 100 Pulse Rate [Left P ulse Oximeter] Respiratory Rate Blood Pressure 135/71 Blood Pressure [Le ft Arm] Pulse Oximetry 94 96 96 Oxygen Delivery Me thod Nasal Cannula Nasal Cannula Nasal Cannula Oxygen Flow Rate 2 1 1 10/10/23 16:00 10/10/23 16:02 10/10/23 16:15 Temperature Pulse Rate 102 H 100 100 Pulse Rate [Left P ulse Oximeter] Respiratory Rate Blood Pressure 116/59 L Blood Pressure [Le ft Arm] Pulse Oximetry 94 93 93 Oxygen Delivery Me thod Nasal Cannula Nasal Cannula Nasal Cannula Oxygen Flow Rate 1 1 1 10/10/23 16:30 10/10/23 16:32 10/10/23 16:45 Temperature Pulse Rate 100 100 100 Pulse Rate [Left P ulse Oximeter] Respiratory Rate Blood Pressure 131/85 Blood Pressure [Le ft Arm] Pulse Oximetry 92 90 93 Oxygen Delivery Me thod Nasal Cannula Nasal Cannula Nasal Cannula Oxygen Flow Rate 1 1 1 10/10/23 17:00 10/10/23 17:01 10/10/23 17:15 Temperature Pulse Rate 98 99 99 Pulse Rate [Left P ulse Oximeter] Respiratory Rate Blood Pressure 138/107 H Blood Pressure [Le ft Arm] Pulse Oximetry 94 94 92 Oxygen Delivery Me thod Nasal Cannula Nasal Cannula Nasal Cannula Oxygen Flow Rate 1 1 1 10/10/23 17:55 10/10/23 17:55 10/10/23 19:00 Temperature 100.1 F H 100.3 F H Pulse Rate Pulse Rate [Left P ulse Oximeter] 99 100 Respiratory Rate 22 22 20 Blood Pressure Blood Pressure [Le ft Arm] 122/66 102/47 L Pulse Oximetry 95 95 92 Oxygen Delivery Me thod Nasal Cannula Nasal Cannula Nasal Cannula Oxygen Flow Rate 1 1 2 10/10/23 20:37 10/10/23 23:00 10/10/23 23:00 Temperature 100.3 F H Pulse Rate Pulse Rate [Left P ulse Oximeter] 100 Respiratory Rate 20 20 Blood Pressure Blood Pressure [Le ft Arm] Pulse Oximetry 92 Oxygen Delivery Me thod Nasal Cannula Oxygen Flow Rate 2 10/10/23 23:00 10/10/23 23:28 10/11/23 03:00 Temperature 98.4 F 98.4 F 98.2 F Pulse Rate Pulse Rate [Left P ulse Oximeter] 87 83 Respiratory Rate 20 18 Blood Pressure Blood Pressure [Le ft Arm] 111/56 L 104/51 L Pulse Oximetry 92 95 Oxygen Delivery Me thod Nasal Cannula Nasal Cannula Oxygen Flow Rate 2 1.5 10/11/23 07:00 10/11/23 08:02 Temperature 98.7 F Pulse Rate Pulse Rate [Left P ulse Oximeter] 78 Respiratory Rate 18 18 Blood Pressure Blood Pressure [Le ft Arm] 114/67 Pulse Oximetry 99 99 Oxygen Delivery Me thod Room Air Room Air Oxygen Flow Rate Labs Labs: Laboratory Results - last 24 hr 10/10/23 10/10/23 10/10/23 14:20 14:36 14:50 WBC 8.02 RBC 3.88 L Hgb 12.1 Hct 35.7 MCV 92 MCH 31 MCHC 34 RDW Coeff of Isiah 12.5 Plt Count 229 Neut % (Auto) 72.7 H Lymph % (Auto) 13.7 L Pacific % (Auto) 11.0 Eos % (Auto) 2.0 Baso % (Auto) 0.5 Neut # (Auto) 5.80 Lymph # (Auto) 1.10 Pacific # (Auto) 0.90 Eos # (Auto) 0.16 Baso # (Auto) 0.04 Abs Immat Gran (auto) 0.01 Imm/Tot Granulo (auto) 0.1 VBG pH 7.463 H VBG pCO2 40 VBG pO2 40.1 VBG HCO3 29 H Sodium 133 L Potassium 4.3 Chloride 98 Carbon Dioxide 29 Anion Gap 6 L BUN 39 H Creatinine 2.1 H Estimated Creat Clear 26.05 Estimated GFR 25 Glucose 103 Calcium 8.8 Total Bilirubin 0.5 Direct Bilirubin 0.1 AST 39 H ALT 34 Alkaline Phosphatase 76 C-Reactive Protein 1.8 H NT-Pro-B Natriuret Pep 66 Total Protein 8.0 Albumin 4.6 SARS-CoV-2 (PCR) Negative SARS-CoV-2 Cancelled Influenza Type A (PCR) Negative PCR FLU A Cancelled Influenza Type B (PCR) Negative PCR FLU B Cancelled RSV (PCR) Negative PCR RSV Cancelled POC Troponin I 0.01 10/11/23 07:42 WBC RBC Hgb Hct MCV MCH MCHC RDW Coeff of Isiah Plt Count Neut % (Auto) Lymph % (Auto) Pacific % (Auto) Eos % (Auto) Baso % (Auto) Neut # (Auto) Lymph # (Auto) Pacific # (Auto) Eos # (Auto) Baso # (Auto) Abs Immat Gran (auto) Imm/Tot Granulo (auto) VBG pH VBG pCO2 VBG pO2 VBG HCO3 Sodium 137 Potassium 4.5 Chloride 102 Carbon Dioxide 30 Anion Gap 5 L BUN 31 H Creatinine 1.5 Estimated Creat Clear 33.94 Estimated GFR 37 Glucose 149 H Calcium 9.1 Total Bilirubin Direct Bilirubin AST ALT Alkaline Phosphatase C-Reactive Protein NT-Pro-B Natriuret Pep Total Protein Albumin SARS-CoV-2 (PCR) Influenza Type A (PCR) Influenza Type B (PCR) RSV (PCR) POC Troponin I
--- NOTE | 2023-10-11 14:47 | NUTR.NU ---
RDN with nutrition screen related to diabetic diet and history of weight loss. RDN attempted to visit with patient multiple times today, however patient was unavailable. RDN will attempt to visit with patient at later date.
--- NOTE | 2023-10-11 18:50 | PC.NURSE ---
shift note: pt up sba/walker to bathroom. IV patent. pt afeb. stable vss. sats cont averaging 92%. pt using aerobika indept. moist cough. Ls mid and lower rt lobe course crkls and exp rhonchi. Pt denies pain. pt medicated for accuchecks per d.o.
[2023-10-11] MEDS: GABAPENTIN 300 MG CAPSULE PO (20:45)
[2023-10-11] MEDS: ATORVASTATIN CALCIUM 40 MG TABLET 80 MG PO (20:45)
[2023-10-11] MEDS: ENOXAPARIN 40 MG/0.4 ML INJ SUBCUT (20:45)
[2023-10-12] MEDS: GUAIF/DM 200-20 MG/20 ML 118 ML LIQUID PO (02:18)
[2023-10-12] MEDS: MELATONIN 3 MG TABLET PO (02:18)
[2023-10-12 02:23] VITALS: BP 130/75; PULSE 86; RESP 20; TEMP 36.9; O2SAT 94
--- NOTE | 2023-10-12 04:45 | PC.NURSE ---
Pt remained on RA all night. Up IND in room. Reporting zero pain. VS unremarkable. Pleasant and cooperative. BG 147 at HS.
[2023-10-12 08:03] VITALS: BP 139/69; PULSE 83; RESP 18; TEMP 36.8; O2SAT 96
[2023-10-12] MEDS: predniSONE 20 MG TABLET 40 MG PO (09:03)
[2023-10-12] MEDS: ASPIRIN 81 MG TABLET EC PO (09:03)
[2023-10-12] MEDS: VENLAFAXINE HCL ER 37.5 MG CAPSULE 150 MG PO (09:03)
[2023-10-12] MEDS: MULTIVITAMIN/MINERALS 1 TABLET 1 TAB PO (09:04)
[2023-10-12] MEDS: EZETIMIBE 10 MG TABLET PO (09:04)
[2023-10-12] MEDS: TORSEMIDE 20 MG TABLET 80 MG PO (09:04)
[2023-10-12] MEDS: IPRAT-ALBUT 0.5-2.5 MG/3 ML NEB 1 NEB IH (09:04)
[2023-10-12] MEDS: OMEPRAZOLE 20 MG CAPSULE DR PO (09:04)
[2023-10-12] MEDS: AZITHROMYCIN 250 MG TABLET 500 MG PO (09:04)
[2023-10-12] MEDS: SODIUM CHLORIDE 0.9 % (FLUSH) 10 ML SYRINGE 5 ML IVF (09:09)
[2023-10-12] MEDS: cefTRIAXone 1 GM in 0.9 % SODIUM CHLORIDE Mini-bag 100 ML IVPB (09:09)
--- NOTE | 2023-10-12 09:38 | NUTR.NU ---
JASON with diet education related to diabetic diet. Patient admitted for pneumonia and COPD exacerbation. Current height 67 inches; weight 239 lb 14 oz. Weight has been stable. JASON visited with patient whom declined diet education related to diabetes at this time. She reports following a diabetic diet for about 20 years now. Declined educational materials. Encouraged patient to let staff know if she has any questions or concerns. Patient to discharge home later today.
--- NOTE | 2023-10-12 10:41 | PM.DS1 ---
DS: Providers Provider Time Seen by Provider: 09:00 Date Seen: 10/12/23 Date of admission: 10/10/23 17:14 Primary care physician: Laly Dickey PA-C Admitting Clinician: Lukas Santiago MD Consults: 10/10/23 17:10 Consult to Occupational Therapy [CONS] Routine Comment: Reason(s) for OT Consult:: Evaluate and Treat Any Restrictions?:: No Restrictions Consult to Physical Therapy [CONS] Routine Comment: Reason(s) for PT Consult:: Evaluate and Treat Any Restrictions?:: No Restrictions Attending Physician on discharge: Caprice De Jesus MD Date of Discharge: 10/12/23 DS: Diagnosis Discharge Diagnosis (1) Hypoxic respiratory failure: Status: Resolved Problem details: Acute. Primarily due to pneumonia. Secondary contributor is COPD. (2) Pneumonia: Status: Acute Problem details: - afebrile overnight. Day 3 of antibiotics. Has been afebrile. Has had 1500 mg total of azithromycin, so I will discontinue that. Finish 5 day course of cephalosporin, then stop. Will send home with oral cephalosporin. (3) COPD exacerbation: Status: Acute Problem details: - improving. Continue prednisone for 5 day course. (4) COPD (chronic obstructive pulmonary disease): Status: Acute (5) Heart failure with preserved ejection fraction: Status: Chronic Problem details: Chronic, stable. Currently appears well compensated. (6) Obstructive sleep apnea: Status: Chronic Problem details: Stopped using CPAP years ago. Recommend re-evaluation with sleep specialist (7) Diabetes mellitus: Status: Chronic Problem details: Continue home meds. (8) Obesity: Status: Chronic Problem details: Reports a weight loss of 95 lb in 3 years during which time she was on Trulicity and Ozempic and trying to lose weight (9) Pulmonary nodule: Status: Acute Problem details: A few small pulmonary micro nodules. Recommend CT follow-up in 6-12 months for re-evaluation versus comparison with outside prior chest CTs. DS: Summary Hospital Course Hospital Course: 68-year-old female with hypoxic respiratory failure due to community-acquired pneumonia with underlying COPD. Treated with ceftriaxone azithromycin inhaled bronchodilators and systemic corticosteroids. Patient reports diabetes is been fairly well controlled; has had weight loss on ozempic and trulicity. Improved during this hospital stay and discharging today in improved condition. Details as above in diagnoses. Will need outpatient f/u CT in 6-12 months for pulmonary nodules Time Spent with Patient Time attestation: Total time spent providing and/or coordinating discharge services: Exam Narrative: Exam Narrative: General: No acute distress. Awake, alert, oriented. No pallor. No jaundice. Cardiovascular: Regular rate and rhythm. No murmurs, gallops, or rubs. Respiratory: Clear to auscultation bilaterally. No wheezes or crackles. Abdomen: Bowel sounds present. Soft, nondistended, nontender. Extremities: Trace pedal edema. Const: Vital Signs, click to edit/add: Vital Signs - 24 hr 10/11/23 11:00 10/11/23 15:00 10/11/23 15:00 Temperature 98.2 F 98.2 F Pulse Rate [Left P ulse Oximeter] 88 93 Respiratory Rate 18 18 18 Blood Pressure [Le ft Arm] 112/93 H 112/46 L Pulse Oximetry 93 99 [facility] Room Air 10/11/23 19:36 10/11/23 22:09 10/11/23 23:00 Temperature 98.2 F 98.3 F Pulse Rate [Left P ulse Oximeter] 90 87 87 Respiratory Rate 18 20 20 Blood Pressure [Le ft Arm] 113/69 154/71 H Pulse Oximetry 93 93 Oxygen Delivery [facility] Room Air Room Air 10/11/23 23:00 10/12/23 02:23 10/12/23 08:03 Temperature 98.5 F Pulse Rate [Left P ulse Oximeter] 86 Respiratory Rate 20 20 Blood Pressure [Le ft Arm] 130/75 Pulse Oximetry 93 94 96 [facility] Room Air Room Air 10/12/23 08:03 Temperature 98.2 F Pulse Rate [Left P ulse Oximeter] 83 Respiratory Rate 18 Blood Pressure [Le ft Arm] 139/69 Pulse Oximetry 96 [facility] Air DS: Data Data Completed and Pending Completed studies during hospitalization: Study: XRay-Chest 1 VIEW PORTABLE-10/10/2023 2:44:25 PM Ordering Physician: A[place] Final Report: INDICATION: Cough. TECHNIQUE: Chest 1 view. COMPARISON: None. FINDINGS: Evaluation limited by patient rotation. Cardiovascular and mediastinum: Heart size and vasculature are normal in caliber and appearance. Lungs and pleural spaces: Lungs are clear. No sign of infiltrate or mass. No sign of pleural effusion. No pneumothorax. Bones and soft tissues: Degenerative changes of the spine and shoulders. IMPRESSION: No acute pulmonary process. Dictated by Kar Monahan MD @ 10/10/2023 3:05:14 PM Signed by: Kar Monahan MD @10/10/2023 3:05:14 PM (Electronic Signature) Study: CT-Chest w/o-10/10/2023 3:25:21 PM Ordering Physician: A[place] Final Report: INDICATION: Evaluate for pneumonia. TECHNIQUE: Noncontrast chest CT. COMPARISON: Chest radiograph from 10/10/2023. FINDINGS: Atherosclerotic changes of the thoracic aorta without aneurysm. Coronary artery calcifications are present indicating coronary artery disease. No pericardial effusion. Small mediastinal lymph nodes are not technically enlarged by imaging criteria. There is patchy infiltrate within the right lower lobe which likely reflects pneumonia. Pulmonary emphysema is present. There are areas of mild atelectasis present. 3 millimeter right upper lobe pulmonary nodule image number 16 of series 2. 6 millimeter right middle lobe pulmonary nodule image number 34 of series 2. 6 millimeter right lower lobe pulmonary nodule image number 63 of series 2. 2 millimeter nodule left upper lobe abutting the fissure on image number 42 of series 2. There is no pleural effusion or pneumothorax. Small hiatal hernia. Degenerative changes of the spine. Diffuse idiopathic skeletal hyperostosis changes are present. IMPRESSION: 1. Patchy infiltrate within the right lower lobe likely reflecting pneumonia. 2. Pulmonary emphysema. 3. A few small pulmonary micro nodules. Recommend CT follow-up in 6-12 months for re-evaluation versus comparison with outside prior chest CTs. Dictated by Eh Johnston MD @ 10/10/2023 3:51:34 PM Please note that all CT scans at this facility use dose modulation, iterative reconstruction, and/or weight-based dosing when appropriate to reduce radiation dose to as low as reasonably achievable. Dictated by: Eh Johnston MD @ 10/10/2023 15:51:39 Signed by: Eh Johnston MD @10/10/2023 3:51:39 PM (Electronic Signature) Labs on day of discharge: Preliminary micro results at discharge 10/10/23 14:50 Blood Culture - Preliminary Blood NO GROWTH AFTER 24 HOURS 10/10/23 14:50 Blood Culture - Preliminary Blood NO GROWTH AFTER 24 HOURS Discharge Plan Discharge Disposition: Home, Self-Care Date of Admission: 10/10/23 17:14 Attending Provider on Discharge: Caprice De Jesus Primary Care Provider: Laly Dickey Condition: Improved Anticipated Discharge Date/Time: 10/12/23 11:18 Discharge Medications: New prednisone 20 mg Tablet 40 mg PO DAILYWM 2 Days Qty: 4 0RF cefdinir 300 mg capsule 300 mg PO BID 2 Days Qty: 5 0RF Continued albuterol sulfate 90 mcg/actuation HFA aerosol inhaler 2 puff INHALATION Q4H PRN Rx Instructions: Inhale 2 puffs every 4 (four) hours as needed for shortness of breath. amitriptyline 50 mg tablet 150 mg PO HS Rx Instructions: TAKE 3 TABLETS(150 MG) BY MOUTH AT BEDTIME aspirin 81 mg tablet,delayed release (DR/EC) 81 mg PO DAILY Rx Instructions: Take 81 mg by mouth at bedtime. atorvastatin 80 mg tablet 80 mg PO DAILY Rx Instructions: Take 1 tablet (80 mg total) by mouth daily. diclofenac sodium 1 % gel 4 g TOPICAL QID PRN Rx Instructions: Apply 4 g topically 4 (four) times a day as needed (Pain). Apply to right shoulder. ezetimibe 10 mg tablet 10 mg PO DAILY Rx Instructions: TAKE 1 TABLET(10 MG) BY MOUTH DAILY gabapentin 300 mg capsule 300 mg PO HS Rx Instructions: Take 1 capsule (300 mg total) by mouth at bedtime. Levemir FlexPen 100 unit/mL (3 mL) insulin pen 32 unit SUBCUT BID Rx Instructions: ADMINISTER 32 UNITS UNDER THE SKIN TWICE DAILY multivitamin with minerals Capsule 1 cap PO DAILY Spiriva Respimat 2.5 mcg/actuation mist 2 inh INHALATION Q24H Rx Instructions: Inhale 2 puffs daily. torsemide 20 mg tablet 80 mg PO DAILY Rx Instructions: TAKE 4 TABLETS(80 MG) BY MOUTH DAILY tramadol 50 mg tablet 50 mg PO HS PRN Rx Instructions: Take 1 tablet (50 mg total) by mouth at bedtime as needed for pain Indications: Chronic Pain/Nonacute Pain. venlafaxine 150 mg capsule,extended release 24hr 150 mg PO DAILY Rx Instructions: TAKE 1 CAPSULE(150 MG) BY MOUTH DAILY semaglutide 1 mg/dose (4 mg/3 mL) pen injector 1 mg SUBCUT .weekly Rx Instructions: Inject 1 mg under the skin every 7 (seven) days. omeprazole 40 mg capsule,delayed release(DR/EC) 40 mg PO DAILY Rx Instructions: Take 1 capsule (40 mg total) by mouth 2 (two) times a day before breakfast and dinner. losartan 50 mg tablet 50 mg PO DAILY Discontinued Ozempic 0.25 mg or 0.5 mg (2 mg/3 mL) pen injector 0.5 mg subcut .weekly Hold Instructions: dose change Patient Comments: on Wednesday omeprazole 20 mg capsule,delayed release(DR/EC) 20 mg PO DAILY Discharge Orders: Discharge Order (Routine); Ordered 10/12/23 Ordered By: Caprice De Jesus Activity Level: No Restrictions Discharge Diet: Regular Follow Up Appointments: Laly Dickey PA-C [Primary Care Provider] - (5-7) Forms: [facility] Inst[facility]
== END 2023-10-12 13:18 | disposition home or self-care (01) | DRG 193 ==
LOC: ED 16:24 → MEDSURG 17:14
PROVIDERS: Family Medicine; Admitting Provider Family Medicine; Emergency Provider Family Medicine; PCP Internal Medicine; Visit Provider Family Medicine
DX: J18.9 Pneumonia, unspecified organism (principal); I50.33 Acute on chronic diastolic (congestive) heart failure; J96.01 Acute respiratory failure with hypoxia; J44.1 Chronic obstructive pulmonary disease with (acute) exacerbation; I13.0 Hypertensive heart and chronic kidney disease with heart failure and stage 1 through stage 4 chronic kidney disease, or unspecified chronic kidney disease; Z87.891 Personal history of nicotine dependence; E66.9 Obesity, unspecified; Z68.37 Body mass index [BMI] 37.0-37.9, adult; N18.32 Chronic kidney disease, stage 3b; E11.22 Type 2 diabetes mellitus with diabetic chronic kidney disease; Z79.85 Long-term (current) use of injectable non-insulin antidiabetic drugs; Z79.4 Long term (current) use of insulin; G47.33 Obstructive sleep apnea (adult) (pediatric); J44.9 Chronic obstructive pulmonary disease, unspecified; R91.1 Solitary pulmonary nodule
CPT/HCPCS: 36415; 71045; 71250; 80048; 80076; 82803; 82962; 83880; 84484; 85025; 86140; 87040; 87631; 93005; 94640; 94664; 94761; 97116; 97161; 97165; 97535; 99285; A9153; A9270; J0456; J0696; J1650; J7030; J7512

== ENCOUNTER 2024-06-20 15:28 | Inpatient (IN) | payer MEDICARE, BC, SELFPAY ==
[2024-06-20 15:33] VITALS: BP 110/75; PULSE 69; RESP 18; TEMP 37; O2SAT 98; BMI 32.5
[2024-06-20] MEDS: 0.9 % SODIUM CHLORIDE 1000 ml 1,000 ML IV (16:20)
--- OUTSIDE RECORDS SUMMARY | 2024-06-20 16:34 | XMS_ITS | Encounter Summary ---
Author Organization [facility] Address [address] [place] [address] [address] [place] [address] Care Team Providers Care Slat Basket Top Maker Name Role Phone Ambrosio Hill MD Primary Care Provider [phone] Ambrosio Hill MD Unavailable Provider, No Attributed RESOURCE Unavailable Unavailable Ambrosio Hill MD Unavailable Ambrosio Hill MD Unavailable Natalie Estrada MD Unavailable [phone] Jakub Barr MD Unavailable [phone] Merary Ware DISPLAY AND BANNER DESIGNER-BOTTOM WHEELER Unavailable [phone] Provider, No Attributed RESOURCE Unavailable Unavailable Ambrosio Hill MD Unavailable Provider, No Attributed RESOURCE Unavailable Unavailable Encounter Details Date Type Department Care Team (Late st Contact Info) Description 12/27/2014 Hospital Telephone Encounter [facility] [address] [place] [address] Devan Rooney, EP [address] [place] [address] Social History Tobacco Use Types Packs/Day Years Used Date Smoking Tobacco: Former Cigarettes 2 30 1 - 02/29/2008 Smokeless Tobacco: Never Alcohol Use Standard Drinks/Week Comments No 0 (1 standard drink = 0.6 oz pur e alcohol) Comments Unknown Sex and Gender Information Value Date Recorded Sex Assigned at Not on file Legal Sex Female 4:48 AM CDT Gender Identity Not on file Sexual Orientation Not on file 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 Author DIET - REDUCE FAT AND PORTION INTAKE Diet On track( 015 5:01 PM CDT) Eli Fuentes, RN LIFESTYLE - CHECK BLOOD SUGARS 3-4 times/day, focusing on premeal and bedtime. 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 [place] [address] PCP - General Family Medicine 07/06/14 03/04/22 Ambrosio Hill MD [address] [facility] [place] [address] PCP - Attributed Provider 01/30/16 04/19/16 Provider, No Attributed, RESOURCE [address] PCP - Attributed Provider 04/20/16 04/21/16 Ambrosio Hill MD [address] [facility] [place] [address] PCP - Attributed Provider 04/22/16 11/21/20 Ambrosio Hill MD [address] [facility] [place] [address] PCP - Attributed Provider 11/22/20 03/23/22 Provider, No Attributed, RESOURCE [address] PCP - Attributed Provider 03/24/22 05/26/22 Ambrosio Hill MD [address] [facility] [place] [address] PCP - Attributed Provider 05/27/22 02/22/24 Provider, No Attributed, RESOURCE [address] PCP - Attributed Provider 02/23/24 Natalie Estrada MD [address] [place] [address] Nephrology (Internal Medicine) 09/18/21 Jakub Barr MD [facility] [place] [address] Orthopedic Surgery 09/18/21 Merary Ware, DISPLAY AND BANNER DESIGNER-BOTTOM WHEELER [address] [place] [address] BOTTOM WHEELER - Oncology 09/18/21 documented as of this encounter
--- OUTSIDE RECORDS SUMMARY | 2024-06-20 16:34 | XMS_ITS | Encounter Summary ---
Author Organization [facility] Address [address] [place] [address] [address] [place] [address] Care Team Providers Care Offshoring Manager Name Role Phone Ambrosio Hill MD Primary Care Provider [phone] Ambrosio Hill MD Unavailable Provider, No Attributed RESOURCE Unavailable Unavailable Ambrosio Hill MD Unavailable Ambrosio Hill MD Unavailable Natalie Estrada MD Unavailable [phone] Jakub Barr MD Unavailable [phone] Merary Ware SCREEN MAKING TECHNICIAN-CLEANER WALL Unavailable [phone] Provider, No Attributed RESOURCE Unavailable Unavailable Ambrosio Hill MD Unavailable Provider, No Attributed RESOURCE Unavailable Unavailable Encounter Details Date Type Department Care Team (Late st Contact Info) Description 12/17/2015 Dictated / No Visit [facility] [address] [place] [address] Ambrosio Hill MD [address] [place] [address] Social History Tobacco Use Types Packs/Day Years Used Date Smoking Tobacco: Former Cigarettes 2 30 1 - 02/29/2008 Smokeless Tobacco: Never Alcohol Use Standard Drinks/Week Comments No 0 (1 standard drink = 0.6 oz pur e alcohol) Comments No Sex and Gender Information Value Date Recorded Sex Assigned at Not on file Legal Sex Female 4:48 AM CDT Gender Identity Not on file Sexual Orientation Not on file Occupation 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 Answer Date of Assessment Author No 11/21/2015 11:02 AM Ambreen Haq RN * Is this person blind or does he/she have difficulty seeing even when wearing glasses? Answer Date of Assessment Author No 11/21/2015 11:02 AM Ambreen Haq RN * Do you have difficulty with walking, balance, climbing stairs, or had a fall in the last 3 months? Answer Date of Assessment Author No 11/21/2015 11:07 AM Ambreen Haq RN * Does the patient have difficulty dressing or bathing? Answer Date of Assessment Author No 11/21/2015 11:13 AM Ambreen Haq RN * Because of a physical, mental, or emotional condition; does this person have difficulty doing errands alone such as visiting a doctor's office or shopping? Answer Date of Assessment Author No 11/21/2015 11:13 AM Ambreen Haq RN documented as of this encounter Mental Status * Because of a physical, mental, or emotional condition; does this person have serious difficulty concentrating, remembering, or making decisions? Answer Entry Date Author No 11/21/2015 11:13 AM Ambreen Haq RN documented in this encounter Progress Notes * Ambrosio Hill MD - 12/17/2015 12:00 AM CDT [facility] Patient Report PROVIDER: Ambrosio Hill M.D., [facility] LOCATION OF CARE: DATE OF SERVICE: 12/17/2015 PATIENT: RAJINDER VERMA MR#: [id number] CSN: : 1955 SEX: F HOME: WORK: RESIDENTIAL DISCHARGE SUMMARY [facility] SITE: [place], [place] DATE OF ADMISSION: 12/03/2015 DATE OF DISCHARGE: 12/17/2015 ADMITTING DIAGNOSIS: Weakness status post total knee arthroplasty. FINAL DIAGNOSIS: Weakness status post total knee arthroplasty. OTHER DIAGNOSES: As listed in the attached note. COMPLICATIONS: None. PROCEDURES: None. RESIDENTIAL COURSE: Patient was admitted for rehabilitation following bilateral total knee arthroplasty. Her blood pressures were managed during her [facility] stay and at the time of discharge will be stopping her atenolol and switching her over to lisinopril at a low dose of 5 mg daily. We will also restart her aspirin 81 mg daily. We discharged her on some pain medications that she will wean off. She will continue physical therapy. She is up and active and tolerating activity well with a walker. Her pain is improving significantly, and she only has some incisional pain. PLANS FOR DISCHARGE: We will discharge to home. We will see her back in about 2 weeks. We will recheck sooner in the meantime. She will follow up with her orthopedic surgeon in about 3 to 4 weeks from now as planned and discharge instructions given in regard to the changes in medications and followups. Ambrosio Hill M.D., Family Medicine cc: [facility] Job ID/Trans ID: [id number] Doc ID: [id number] BOARD MEMBER BOARD MEMBER documented in this encounter Plan of Treatment Not on file documented as of this encounter Goals Goal Patient Goal Type Associated Problems Recent Progress Patient-Stated? Author DIET - REDUCE FAT AND PORTION INTAKE Diet On track( 015 5:01 PM CDT) Eli Fuentes, RN LIFESTYLE - CHECK BLOOD SUGARS 3-4 times/day, focusing on premeal and bedtime. Lifestyle On track( 5:00 PM CDT) Eli Fuentes, RN documented as of this encounter Visit Diagnoses Not on filedocumented in this encounter Additional Health Concerns Infection Onset Date Last Indicated Resolved Time COVID-19 04/23/2020 04/23/2020 05/03/2020 11:5 7 PM BOARD MEMBER documented as of this encounter Care Teams Offshoring Manager Relationship Specialty Start Date End Date Ambrosio Hill MD [address] [place] [address] PCP - General Family Medicine 07/06/14 03/04/22 Ambrosio Hill MD [address] [place] [address] PCP - Attributed Provider 01/30/16 04/19/16 Provider, No Attributed, RESOURCE [address] PCP - Attributed Provider 04/20/16 04/21/16 Ambrosio Hill MD [address] [place] [address] PCP - Attributed Provider 04/22/16 11/21/20 Ambrosio Hill MD [address] [place] [address] PCP - Attributed Provider 11/22/20 03/23/22 Provider, No Attributed, RESOURCE [address] PCP - Attributed Provider 03/24/22 05/26/22 Ambrosio Hill MD [address] [place] [address] PCP - Attributed Provider 05/27/22 02/22/24 Provider, No Attributed, RESOURCE [address] PCP - Attributed Provider 02/23/24 Natalie Estrada MD [address] [place] [address] Nephrology (Internal Medicine) 09/18/21 Jakub Barr MD [facility] [place] [address] Orthopedic Surgery 09/18/21 Merary Ware APRN-CLEANER WALL [address] [place] [id number] CLEANER WALL - Oncology 09/18/21 documented as of this encounter
--- OUTSIDE RECORDS SUMMARY | 2024-06-20 16:34 | XMS_ITS | Clinical Summary ---
Author Organization [facility] Address [address] [place] [address] Care Team Providers Care Punch Card Operator Name Role Phone Natalie Estrada MD Unavailable [phone] Jakub Barr MD Unavailable [phone] Shawn Ware PHYSICAL EDUCATION INSTRUCTOR-HOSIERY LOOPER Unavailable [phone] Provider, No Attributed RESOURCE Unavailable Unavailable Allergies Active Allergy Reactions Criticality Noted Date Comments Penicillin Hives (High) High 03/29/2013 Hospitalized Adhesives Hives (High),Rash High 03/29/2013 Blisters Medications Multiple Vitamins-Minerals (WOMENS 50+ MULTI VITAMIN/MIN PO) Take by mouth 1 time per day. Active polyethylene glycol (MIRALAX) 17 g packetIndications: Chronic right shoulder pain Take 1 packet by mouth 1 time a day as needed for constipation (since taking oxycodone for shoulder pain) Dissolve in 4 to 8 ounces of water, juice, soda, coffee, tea. 0 12/20/19 20 Active loperamide (IMODIUM) 2 mg capsuleIndications :Loose stools Take 1 capsule after each loose stool. Maximum of 8 capsules per day. 42 capsule 12/26/19 20 Active vitamin D3, cholecalciferol, 25 mcg (1000 unit) CAPS capsuleIndications :Essential hypertension,Stage 3b chronic kidney disease (HCC) Take 2 capsules (2,000 Units) by mouth 1 time per day 180 capsule 4 02/10/20 22 Active aspirin 81 mg enteric coated tabletIndications: Type 2 diabetes mellitus with complication, with long-term current use of insulin (HCC) Take 1 tablet (81 mg) by mouth 1 time a day in the evening 90 tablet 4 02/10/20 22 Active bumetanide (BUMEX) 1 mg tabletIndications: Chronic diastolic heart failure (HCC) Take 1-2 tablets (1-2 mg) by mouth 2 times a day 360 tablet 02/10/20 Active venlafaxine (EFFEXOR XR) 150 mg extended release capsuleIndications :Depression with anxiety Take 1 capsule (150 mg) by mouth 1 time per day 90 capsule 02/10/20 Active gabapentin (NEURONTIN) 300 mg capsuleIndications :Diabetic peripheral neuropathy ([facility]) Take 3 capsules (900 mg) by mouth every night at bedtime 270 capsule 02/10/20 Active losartan 50 mg tabletIndications: Essential hypertension,Stage 3b chronic kidney disease ([facility]) Take 1 tablet (50 mg) by mouth 1 time per day 90 tablet 02/10/20 Active omeprazole (PRILOSEC) 20 mg capsuleIndications :Gastroesophageal reflux disease without esophagitis Take 1 capsule (20 mg) by mouth 1 time per day 90 capsule 02/10/20 Active atorvaSTATin calcium (LIPITOR) 80 mg tabletIndications: Mixed hyperlipidemia Take 1 tablet (80 mg) by mouth 1 time per day 90 tablet 02/10/20 Active ezetimibe (ZETIA) 10 mg tabletIndications: Mixed hyperlipidemia Take 1 tablet (10 mg) by mouth 1 time per day 90 tablet 02/10/20 Active albuterol HFA (ALBUTEROL, VENTOLIN BRAND,) 108 (90 Base) MCG/ACT inhalerIndications :Mixed type COPD (chronic obstructive pulmonary disease) ([facility]) Inhale 2 puffs orally Every 3 hours as needed for shortness of breath or wheezing (between the combivent inhalations) Shake well 18 g 02/10/20 Active fluticasone-salmet didier (WIXELA INHUB) 250-50 mcg/dose discusIndications: Mixed type COPD (chronic obstructive pulmonary disease) ([facility]) Inhale 1 puff orally 2 times a day Rinse mouth after use. 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) ([facility]) Inhale 2 puffs orally 1 time per day 12 g 02/10/20 Active amitriptyline (ELAVIL) 50 mg tabletIndications: Obstructive sleep apnea syndrome Take 3 tablets (150 mg) by mouth every night at bedtime 270 tablet 02/10/20 Active BD Ultra Fine lancets 33GIndications:Typ e 2 diabetes mellitus with complication, with long-term current use of insulin ([facility]) four per day 400 each 02/10/20 Active Blood Glucose Monitoring Suppl (TRUE METRIX METER) w/Device KITIndications:Typ e 2 diabetes mellitus with complication, with long-term current use of insulin ([facility]) 1 Device 4 times a day DX: E 11.8 1 each 02/10/20 Active dulaglutide (TRULICITY) 1.5 mg/0.5 mL subcutaneous injection (pen)Indications:T ype 2 diabetes mellitus with complication, with long-term current use of insulin ([facility]) Inject 0.5 mL (1.5 mg) subcutaneously 1 time a week 6 mL 02/10/20 Active insulin detemir (LEVEMIR FLEXTOUCH) subcutaneous injection (pen)Indications:T ype 2 diabetes mellitus with complication, with long-term current use of insulin ([facility]) Inject 32 Units subcutaneously 2 times a day 60 mL 02/10/20 Active insulin lispro (HUMALOG) 100 unit/mL (1 unit dial) subcutaneous inj (pen)Indications:T ype 2 diabetes mellitus with complication, with long-term current use of insulin ([facility]) Inject 30 Units subcutaneously 3 times a day with meals Adjust as indicated 81 mL 02/10/20 Active insulin needle (INSULIN NEEDLE) 31G X 8 mm (10/13) ShortIndications:T ype 2 diabetes mellitus with complication, with long-term current use of insulin ([facility]) Use as directed 300 each 1 02/10/20 Active metFORMIN (GLUCOPHAGE) 500 MG tabletIndications: Type 2 diabetes mellitus with complication, with long-term current use of insulin ([facility]) Take 1 tablet (500 mg) by mouth 2 times a day with meals 180 tablet 02/10/20 Active True Metrix Blood Glucose Test StripIndications:T ype 2 diabetes mellitus with complication, with long-term current use of insulin ([facility]) 1 Strip 400 each 02/10/20 Active traMADol (ULTRAM) 50 mg tabletIndications: Arthritis of right shoulder region Take 1 tablet (50 mg) by mouth at bedtime as needed for moderate pain 30 tablet 05/27/20 22 Active Active Problems Problem Noted Date Diagnosed Date Lung nodule 11/12/2021 Stage 3b chronic kidney disease 01/15/2021 Obesity (BMI 30-39.9) 06/06/2020 Hammertoes of both feet 05/22/2020 History of 2019 novel coronavirus disease (COVID -19) 04/23/2020 Chronic right shoulder pain 12/18/2019 Overview (12/18/2019): With recent humerus fracture on 10/19/2019. Dental infection 11/28/2019 Partner relational problem 07/02/2017 Sibling relational problem 07/02/2017 Type 2 diabetes mellitus wit h complication, with long-term current use of insulin 05/28/2016 History of adenomatous polyp of colon 09/30/2015 Chronic bilateral low back pain without sciatica 09/11/2015 Mixed type COPD (chronic obstructive pulmonary d isease) 02/13/2015 Multiple pulmonary nodules 02/13/2015 Obstructive sleep apnea syndrome 02/13/2015 Gastroesophageal reflux disease without esophagi tis 08/08/2014 Diabetic peripheral neuropathy 08/08/2014 Chronic diastolic heart failure 07/06/2014 Venous insufficiency of both lower extremities 0 07/06/2014 Depression with anxiety 03/06/2014 Essential hypertension 10/06/2006 Mixed hyperlipidemia 10/06/2006 Osteoarthritis 10/06/2006 Resolved Problems Problem Noted Date Diagnosed Date Resolved Date Major depressive disorder, r ecurrent episode, moderate 06/06/2020 09/02/2021 Hypoxia 04/27/2020 04/27/2020 Closed fracture of proximal end of right humerus with routine healing 11/28/2019 05/08/2020 Diabetes mellitus with chron ic kidney disease, with long-term current use of insulin 04/05/2013 05/28/2016 Immunizations Immunization Administration Dates Next Due Influenza Trivalent w/preserv 04/02/2006 FLU VACCINE HIGH DOSE 65YR+(Fluzone) 02/16/2020, 03/22/2018 FLU VACCINE SINGLE DOSE 0.5mL(6MO+Fluzone/Flulaval/Fluarix,3YR +Afluria) 03/10/2016,02/13/2015 INFLUENZA HIGH DOSE (FLUZONE ) 65 YEARS AND UP 02/09/2022,03/17/2021,03/01/2019 INFLUENZA SINGLE DOSE 0.5ML 6 MONTHS AND UP 03/02/2017,03/07/2014 Influenza Vaccine,unspecified 02/15/2013 ,02/24/2012,03/19/2011,03/05,02/14/2009,04/03/2008,03/24/2007 Pfizer COVID-19 BIVALENT Vac cine (Beckwith Cap) 12 YR and up 02/09/2022 Pfizer COVID-19 MONOVALENT ( Beckwith Top) 12 Years and up 12/09/2021 Pfizer COVID-19 Vaccine(Purp le Top) 12 Years and up 07/03/2021,12/05/2020,11/14/2020 Pneumococcal Conj PCV13 03/22/2018 Pneumococcal Polysaccharide PPSV23 03/29/2019,,02/24/2012 TDAP 06/12/2014,02/15/2013 Zoster Live(Zostavax) 02/15/2013 Zoster Recombinant (Shingrix) 07/14/2019, 019 Family History Medical History Relation Comments Atrial fibrillation Brother 1 Heart Disease Brother 1 Diabetes Brother 2 Anxiety Disorder Brother 3 Bipolar Disorder Brother 3 Crohn Disease Brother 3 Schizophrenia Brother 3 paranoid schizop hrenia Osteoarthritis Cousin No Known Problems Daughter Lung Cancer Father Substance Abuse Father drinking problem Emphysema Maternal Grandfather black lung Brain Cancer Maternal Grandmother Substance Abuse Maternal Grandmother alcohol Lung Cancer Mother Attention Deficit Disorder Nephew Colorectal Cancer Paternal Grandfather Diabetes Sister Asthma Son Relation Status Comments Brother 1 Alive Brother 2 Alive Brother 3 Alive Cousin Daughter Alive Father (Age 70) smoker Maternal Grandfather (Age 30) Maternal Grandmother Mother (Age 62) smoker Nephew Paternal Aunt (Age 40's) júnior disea se Paternal Grandfather Paternal Grandmother Sister Alive Son Alive Social History Tobacco Use Types Packs/Day Years Used Date Smoking Tobacco: Former Cigarettes 2 34 1 06/15/1973 - 02/29/2008 Smokeless Tobacco: Never Alcohol Use Standard Drinks/Week Comments No 0 (1 standard drink = 0.6 oz pur e alcohol) Social Connection and Isolat ion Panel [NHANES] Answer Date Recorded In a typical week, how many times do you talk on the phone with family, friends, or neighbors? More than three times a week 04/23/2020 How often do you get togethe r with friends or relatives? Once a week 04/23/2020 How often do you attend chur ch or pentecostal services? More than 4 times per year 04/23/2020 Do you belong to any clubs o r organizations such as bahai groups, unions, fraternal or athletic groups, or school groups? No 04/23/2020 How often do you attend meet ings of the clubs or organizations you belong to? Never 04/23/2020 Are you , , di vorced, , never , or living with a partner? 04/23/2020 Overall Financial Resource Strain (CARDIA) Answe r Date Recorded How hard is it for you to pa y for the very basics like food, housing, medical care, and heating? Not hard at all 06/06/2020 PHQ-2 Answer Date Recorded PHQ-9 Total (Adult) 0 02/09/2022 [facility] Occupational Stress Questionnaire Answer Date Recorded Do you feel stress - tense, restless, nervous, or anxious, or unable to sleep at night because your mind is troubled all the time - these days? Not at all 04/23/2020 Exercise Vital Sign Answer Date Recorde d On average, how many days pe r week do you engage in moderate to strenuous exercise (like a brisk walk)? 3 days 04/23/2020 On average, how many minutes do you engage in exercise at this level? 20 min 04/23/2020 Hunger Vital Sign Answer Date Recorded Within the past 12 months, y ou worried that your food would run out before you got the money to buy more. Never true 06/06/19 21 Within the past 12 months, t he food you bought just didn't last and you didn't have money to get more. Never true 06/06/2020 PRAPARE - Transportation Answer Date Re corded In the past 12 months, has l ack of transportation kept you from medical appointments or from getting medications? No 11/2020 In the past 12 months, has l ack of transportation kept you from meetings, work, or from getting things needed for daily living? No 06/06/2020 Comments No Sex and Gender Information Value Date Recorded Sex Assigned at Not on file Legal Sex Female 4:48 AM CDT Gender Identity Not on file Sexual Orientation Not on file Occupation Industry Job Start Date Job End Date retired from [employer] Not on file Not on fi le Not on file Last Filed Vital Signs Vital Sign Reading Time Taken Comments Blood Pressure 122/70 02/09/2022 12:49 PM CDT Pulse 98 02/09/2022 12:49 PM CDT Temperature 37.5 C (99.5 F) 02/09/2022 12:49 PM CDT Respiratory Rate 16 11/12/2021 3:16 PM CDT Oxygen Saturation 96% 02/09/2022 12: 49 PM CDT Inhaled Oxygen Concentration - - Weight 117.6 kg (259 lb 4.8 oz) 022 12:49 PM CDT Height 172.7 cm (5' 8) 05/12/2021 6:34 AM ONCOLOGY NURSE Body Mass Index 39.43 05/12/2021 6:34 AM ONCOLOGY NURSE Plan of Treatment Health Maintenance Due Date Last Done Comments RSV Vaccine, Adult (1 - Risk 60-74 years 1-dose series) 2013 Ophthalmology Exam 11/07/2022 11/07/2021, 0 10/22/2020, 10/06/2019, Additional history exists Diabetic Foot Exam 02/09/2023 02/09/2022, 1 06/17/2020, 04/17/2021, Additional history exists ALT 04/27/2023 04/27/2020, 04/01, 04/25/2020, Additional history exists AST 04/27/2023 04/27/2020, 04/01, 04/25/2020, Additional history exists Microalbumin 08/25/2023 08/24/2022, 05/0 07/2021, 09/02/2021, Additional history exists Medicare Yearly Wellness Visit 12/19/2023 12/18/2022, 01/15/2021 Covid-19 Vaccine ( season) 2024 02/09/2022, 12/09/2021, 07/03/2021, Additional history exists Influenza Vaccine (#1) 2024 , 03/17/2021, 02/16/2020, Additional history exists Mammogram 03/26/2024 03/26/2023, 0 01/2022, 01/20/2021, Additional history exists Hemoglobin A1C Every 6 Months 06/02/2024 12/01/2023, 12/01/2023, 06/01/2023, Additional history exists TDAP/TD VACCINE (3 - Td or Tdap) 06/12/2024 06/12/2014, 02/15/2013 Platelets 09/29/2024 09/29/2021, 0 07/2021, 06/06/2020, Additional history exists Creatinine 01/11/2025 01/12/2024, 11/29, 12/01/2023, Additional history exists Lipid Screening 01/11/2025 01/12/2024, 01/30, 02/06/2022, Additional history exists Colonoscopy 05/12/2026 05/12/2021, 09/26/2015 DEXA/Heel Scan 01/12/2034 01/12/2019 Hepatitis C Screening Completed 10/14/2016 Pneumococcal Vaccine 50yr + Completed 03/02, 03/22/2018, 02/15/2013, Additional history exists Zoster Vaccine Completed 07/14/2019, 04/30, 02/15/2013 Annual Lung Screen Discontinued 06/19/2022, 1 06/29/2020, 04/23/2020, Additional history exists Hepatitis B Vaccine Aged Out No longe r eligible based on patient's age to complete this topic Goals Goal Patient Goal Type Associated Problems Recent Progress Patient-Stated? Author DIET - REDUCE FAT AND PORTION INTAKE Diet On track( 015 5:01 PM CDT) No Eli Woods RN LIFESTYLE - CHECK BLOOD SUGARS 3-4 times/day, focusing on premeal and bedtime. Lifestyle On track( 015 5:00 PM CDT) No Eli Woods RN HGB A1C < 8 Result Component 5.8( 4 9:08 AM CDT) No Geovanna Lerner MD Medical Devices Implanted Type Area Cosmetics Presser Device Identifier Shelf Expiration Date Model / Serial / Lot Cmnt Simplex P W Tobramyacin N 6197-9-010 Bx10/Ea - [id number] Implanted:Qty: 1 on 11/26/2015 by Jakub Barr MD at [facility] Ortho Other Left: KNEE DAVID 08/28/2016 6197-9-001 / N/A / [id number] Description:Verified by Dr. Barr and surgical team. Cmnt Simplex P W Tobramyacin N 6197-9-010 Bx10/Ea - [id number] Implanted:Qty: 1 on 11/26/2015 by Jakub Barr MD at [facility] Ortho Other Right: KNEE DAVID 08/28/2016 6197-9-001 / N/A / [id number] Knee Psn Asf Psve Lft11 6-9 Ef N 41-6022-491-11 Ea - [id number] Implanted:Qty: 1 on 11/26/2015 by Jakub Barr MD at [facility] Total Jt Knee Left: KNEE DESIREE 08/28/2020 42-5124-00 7-11 / N/A / [id number] Description:Verified by Dr. Barr and surgical team. Knee Psn Ptla All Pe Ve 38mm N 83-5221-627-38 Ea - [id number] Implanted:Qty: 1 on 11/26/2015 by Jakub Barr MD at [facility] Total Jt Knee Right: KNEE DESIREE 04/29/2020 42-5402-00 0-38 / N/A / [id number] Description:Verified by Dr. Barr and surgical team. Knee Psn Fem Pscmnt Std Rt Sz9 N 83-0187-943-02 Ea - [id number] Implanted:Qty: 1 on 11/26/2015 by Jakub Barr MD at [facility] Total Jt Knee Right: KNEE DESIREE 05/30/2025 42-5006-06 6-02 / N/A / [id number] Description:Verified by Dr. Barr and surgical team. Knee Psn Tib Stem 5d Sz F Rt N 52-8543-652-02 Ea - [id number] Implanted:Qty: 1 on 11/26/2015 by Jakub Barr MD at [facility] Total Jt Knee Right: KNEE DESIREE 08/28/2025 42-5320-07 5- / N/A / [id number] Description:Verified by Dr. Barr and surgical team. Knee Psn Asf Ps Ve Rt13 6-9 Ef N 22-0696-433-13 Ea - [id number] Implanted:Qty: 1 on 11/26/2015 by Jakub Barr MD at [facility] Total Jt Knee Right: KNEE DESIREE 12/29/2019 42-5224-00 - / N/A / [id number] Description:Verified by Dr. Barr and surgical team. Knee Psn Fem Pscmnt Std Lftsz9 N 31-3101-821-01 Ea - [id number] Implanted:Qty: 1 on 11/26/2015 by Jakub Barr MD at [facility] Total Jt Knee Left: KNEE DESIREE 09/27/2025 42-5006-06 6- / N/A / [id number] Description:Verified by Dr. Barr and surgical team. Knee Psn Tib Stem 5d Sz F Lft N 88-5493-098-01 Ea - [id number] Implanted:Qty: 1 on 11/26/2015 by Jakub Barr MD at [facility] Total Jt Knee Left: KNEE DESIREE 10/28/2025 42-5320-07 5 / N/A / [id number] Description:Verified by Dr. Barr and surgical team. Knee Psn Ptla All Pe Ve 38mm N 60-4415-497-38 Ea - [id number] Implanted:Qty: 1 on 11/26/2015 by Jakub Barr MD at [facility] Total Jt Knee Left: KNEE DESIREE 10/29/2019 42-5402-00 0-38 / N/A / [id number] Description:Verified by Dr. Barr and surgical team. [id number] Implanted:Qty: 1 on 10/22/2016 by Young Coles MD Right: BREAST 01/29/2017 / [id number] Procedures Procedure Name Priority Date/Time Associated Diagnosis Comments CT CHEST WITHOUT CONTRAST Routine 06/19/2022 1:18 PM ONCOLOGY NURSE Lung nodule MAMMOGRAM JENNIFER DIGITAL SCREENING KIM Routine 02/06/2022 2:16 PM CDT Screening mammogram, encounter for LIPID PANEL Routine 02/06/2022 1:40 PM CDT Mixed hyperlipidemia Annual physical exam GLYCATED HEMOGLOBIN Routine 02/06/2022 1 :40 PM CDT Type 2 diabetes mellitus with complication, with long-term current use of insulin (HCC) Annual physical exam BASIC METABOLIC PANEL Routine 02/06/2022 1:40 PM CDT Type 2 diabetes mellitus with complication, with long-term current use of insulin (HCC) Annual physical exam Essential hypertension DILATED EYE EXAM - OUTSIDE RESULT Routine 11/07/2021 PROTEIN AND CREATININE RATIO, RANDOM URINE Routine 09/29/2021 11:27 AM CDT Stage 3b chronic kidney disease (HCC) LAB ONLY-COMPLETE BLOOD COUNT WITH DIFFERENTIAL Routine 09/29/2021 10:51 AM CDT Stage 3b chronic kidney disease (HCC) COMPREHENSIVE METABOLIC PANEL Routine 04/27/2020 5:30 AM ONCOLOGY NURSE DEXA SCAN Routine 01/12/2019 2:57 PM CDT History of menopause HEP C ANTIBODY REFLEX TO QUANTITATIVE CONFIRMATION Routine 10/14/2016 10:17 AM CDT Need for hepatitis C screening test from Last 3 Months or Most Recently Relevant to Health Maintenance Results * CT CHEST WITHOUT CONTRAST (06/19/2022 1:18 PM ONCOLOGY NURSE) Anatomical Region Laterality Modality Chest, Lung Computed Tomogra phy 06/19/2022 4:38 PM ONCOLOGY NURSE Narrative 06/19/2022 4:44 PM ONCOLOGY NURSE Patient Name: ANNA VERMA Date of : 1955 Procedure: CT CHEST WITHOUT CONTRAST Date of Service: 06/19/2022 EXAM: CT CHEST WITHOUT CONTRAST INDICATION:ICD-10 R91.1 Lung nodule Lung nodule, 6-8mm COMPARISON(S): 04/29/2021 IMPRESSION: 1. Stable intrapulmonary nodules 2. No new or enlarging pulmonary nodule. 3. Moderate, upper lobe predominant emphysematous changes Lung-RADs: 2 Benign Appearances or Behavior * Recommendation: Continued annual screening with repeat Low Dose CT (LDCT) in 12 months. TECHNIQUE: Multislice acquisitions with 4 mm reconstructions through the chest without intravenous contrast. Additional reconstructions in coronal and sagittal planes FINDINGS: Triangular perifissural lymph node along the minor fissure (axial image 84), unchanged. 6 mm nodule in the paravertebral right lower lung (axial image 136), also stable. Probable scarring in the left upper lobe (axial images 62 through 65), also unchanged in appearance. There is no new or enlarging pulmonary nodule. No significantly enlarged hilar, mediastinal or axillary lymph nodes. Atherosclerotic changes involving the thoracic aorta. Coronary artery calcifications are present, primarily LAD distribution. Moderately severe degenerative changes throughout the thoracic spine. No destructive bone lesion. Small hiatal hernia. Visualized liver, spleen and adrenals are unremarkable. Finalized by: Roman Guzman MD on 06/19/2022 4:44 PM ONCOLOGY NURSE Patient/Procedure Information: [facility] MRN/MARGE: [id number] Order Number: [id number] Accession Number: [id number] Ordering Provider: SHAWN WARE Authorizing Provider: SHAWN WARE Procedure Note Roman Guzman MD - 06/19/2022 Patient Name: ANNA VERMA Date of : 1955 Procedure: CT CHEST WITHOUT CONTRAST Date of Service: 06/19/2022 EXAM: CT CHEST WITHOUT CONTRAST INDICATION:ICD-10 R91.1 Lung nodule Lung nodule, 6-8mm COMPARISON(S): 04/29/2021 IMPRESSION: 1. Stable intrapulmonary nodules 2. No new or enlarging pulmonary nodule. 3. Moderate, upper lobe predominant emphysematous changes Lung-RADs: 2 Benign Appearances or Behavior * Recommendation: Continued annual screening with repeat Low Dose CT(LDCT) in 12 months. TECHNIQUE: Multislice acquisitions with 4 mm reconstructions through thechest without intravenous contrast. Additional reconstructions in coronaland sagittal planes FINDINGS: Triangular perifissural lymph node along the minor fissure(axial image 84), unchanged. 6 mm nodule in the paravertebral right lower lung (axial image 136), alsostable. Probable scarring in the left upper lobe (axial images 62 through 65),also unchanged in appearance. There is no new or enlarging pulmonary nodule. No significantly enlarged hilar, mediastinal or axillary lymph nodes. Atherosclerotic changes involving the thoracic aorta. Coronary artery calcifications are present, primarily LAD distribution. Moderately severe degenerative changes throughout the thoracic spine. Nodestructive bone lesion. Small hiatal hernia. Visualized liver, spleen and adrenals are unremarkable. Finalized by: Roman Guzman MD on 06/19/2022 4:44 PM ONCOLOGY NURSE Patient/Procedure Information: [facility] MRN/MARGE: [id number] Order Number: [id number] Accession Number: [id number] Ordering Provider: SHAWN WARE Authorizing Provider: SHAWN WARE Shawn Ware PHYSICAL EDUCATION INSTRUCTOR-HOSIERY LOOPER CT Final R esult * MAMMOGRAM JENNIFER DIGITAL SCREENING KIM (02/06/2022 2:16 PM CDT) Anatomical Region Laterality Modality Breast Bilateral Mammography 02/09/2022 11:4 2 AM CDT Narrative 02/09/2022 11:44 AM CDT Patient Name: ANNA VERMA Date of : 1955 Procedure: MAMMOGRAM JENNIFER DIGITAL SCREENING KIM Date of Service: 02/06/2022 EXAM: MAMMOGRAM JENNIFER DIGITAL SCREENING KIM INDICATION: ICD-10 Z12.31 Screening mammogram, encounter for COMPARISON(S): Comparison is made to prior exams most recently dated 01/20/2021. TECHNIQUE: Bilateral CC and MLO digital tomosynthesis was done in addition to routine imaging. Interpretation is made with the benefit of Computer Aided Detection. Limited exam. Best images obtained. DENSITY: There are scattered areas of fibroglandular density in both breasts. FINDINGS: There is a biopsy clip in the right breast. No suspicious masses, grouped calcifications or architectural distortions are identified in either breast. There has been no significant interval change. IMPRESSION: No mammographic evidence of malignancy. MANAGEMENT: Continued screening mammography as indicated by ACR recommendations. ACR BI-RADS CATEGORY: 2 - Benign A letter will be sent to the patient indicating her mammography results in lay terminology. Finalized by: Chapincito Mello MD on 02/09/2022 11:44 AM CDT Patient/Procedure Information: [facility] MRN/MARGE: [id number] Order Number: [id number] Accession Number: [id number] Ordering Provider: GEOVANNA LERNER Authorizing Provider: GEOVANNA LERNER Authorjagdish Provider Result Type Result Stat us Geovanna Lerner MD MAMMOGRAPHY Final Result * (ABNORMAL) LIPID PANEL (02/06/2022 1:40 PM CDT) Cholesterol 162 100 - 200 mg/dL 02/06/2022 2:33 PM CDT BON [facility] Triglyceride 284(H) 35 - 150 mg/dL 02/06/2022 2:33 PM CDT [facility] HDL 54 40 - 60 mg/dL 02/06/2022 2:33 PM CD[address] [facility] LDL Direct 61 30 - 130 mg/dL 02/06/2022 2:[address] [facility] Fasting Yes Yes, No, Unknown 02/06/2022 2:33 PM CD[address] [facility] Blood BLOOD SPECIMEN / Unknown Venipuncture / Unknown 02/06/2022 1:40 PM CDT 02/06/2022 1:40 PM CDT us Geovanna Lerner MD LAB BLOOD Final Result [facility] [address] [place], [place] [id number] * (ABNORMAL) GLYCATED HEMOGLOBIN (02/06/2022 1:40 PM CDT) Hgb A1C 7.1(H) 4.6 - 5.6 % 02/06/2022 2:[address] [facility] Blood BLOOD SPECIMEN / Unknown Venipuncture / Unknown 02/06/2022 1:40 PM CDT 02/06/2022 1:40 PM CDT Narrative [facility] - 02/06/2022 2:11 PM CDT Reference Range 4.6-5.6% Prediabetic Range 5.7-6.4% Diabetic Range >6.5% Geovanna Lerner MD LAB BLOOD Final Result [facility] [address] [place] [address] * (ABNORMAL) BASIC METABOLIC PANEL (02/06/2022 1:40 PM CDT) Glucose 121(H) 70 - 100 mg/dL 02/06/2022 2:24 PM CD[address] [facility] BUN 19(H) 7 - 17 mg/dL 02/06/2022 2:[address] [facility] Creatinine 1.40(H) 0.50 - 1.00 mg/dL 02/06/2022 2:[address] [facility] BUN/Creatinine Ratio 13.6(L) 15.0 - 20.0 02/06/2022 2:[address] [facility] Sodium 140 135 - 145 meq/L 02/06/2022 2:[address] [facility] Potassium 4.6 3.5 - 5.1 meq/L 02/06/2022 2:[address] [facility] Chloride 102 98 - 107 meq/L 02/06/2022 2:[address] [facility] CO2 30 22 - 30 meq/L 02/06/2022 2:[address] [facility] Anion Gap with K 13 6 - 20 meq/L 02/06/2022 2:[address] [facility] Calcium 9.2 8.4 - 10.2 mg/dL 02/06/2022 2:[address] [facility] Age 66 Years 02/06/2022 2:[address] PM [address] [facility] eGFR Non- 37 mL/min/1.73 m2 02/06/2022 2:[address] [facility] eGFR 45 mL/min/1.73 m2 02/06/2022 2:[address] [facility] Comment: The estimated Glomerular Filtration Rate (eGFR) is calculated using the Abbreviated Modification of Diet in Renal Disease (MDRD) equation. The eGFR is reported out in mL/min. per 1.73 meter squared units. The National Kidney Foundation action value for patients without a diagnosis of chronic kidney disease is a eGFR of < 60 mL/min per 1.73M2. The National Kidney Foundation stages listed below apply to patients with a diagnosis of chronic kidney disease (defined as either kidney damage or eGFR <60 mL/min/1.73 m2 for 3 months). Kidney damage is defined as pathologic abnormalities or markers of damage, including abnormalities in blood or urine tests or imaging studies. These stages apply to adults. No standardized classification has yet been established for pediatric patients. Stage eGFR in ml/min per 1.73M2 1 Kidney abnormality with normal or increased eGFR >or=90 2 Kidney abnormality with mild decreased eGFR 60-89 3 Moderately decreased eGFR 30-59 4 Severely decreased eGFR 15-29 5 Kidney failure <15 The eGFR varies with age, sex, race and body size and normally decreases with age. Fasting Yes Yes, No, Unknown 02/06/2022 2:[address] [facility] Blood BLOOD SPECIMEN / Unknown Venipuncture / Unknown 02/06/2022 1:40 PM CDT 02/06/2022 1:40 PM CDT Geovanna Lerner MD LAB BLOOD Final Result [address] [address] * DILATED EYE EXAM - OUTSIDE RESULT (11/07/2021) Diabetic Eye Exam (External Result): Normal [facility] Anatomical Region Laterality Modality Other Abstract Provider OPHTHALMOLOGY SERVICES ORDERAB LES Final Result * PROTEIN / CREATININE INDEX, URINE (09/29/2021 11:27 AM CDT) Protein Total Urine <6.8 <14.0 mg/dL 09/29/2021 10:13 PM CDT Creatinine Urine 79.2 No Reference Range Established mg/dL 09/29/2021 10:13 PM CDT Protein/Creati nine Index 09/29/2021 10:13 PM CDT Comment:Unable to calculate Protein/Creatinine Ratio. Urine URINE SPECIMEN / Unknown 09/29/2021 11:27 AM CDT 09/29/2021 11:27 AM CDT us Natalie Estrada MD LAB [place] [address] * (ABNORMAL) COMPREHENSIVE METABOLIC PANEL (04/27/2020 5:30 AM ONCOLOGY NURSE) Glucose 190(H) 70 - 100 mg/dL 04/27/2020 6:19 AM ONCOLOGY NURSE [facility] BUN 18(H) 7 - 17 mg/dL 04/27/2020 6:19 AM ONCOLOGY NURSE [facility] Creatinine 0.80 0.50 - 1.00 mg/dL 04/27/2020 6:19 AM ONCOLOGY NURSE [facility] BUN/Creatinine Ratio 22.5(H) 15.0 - 20.0 04/27/2020 6:19 AM ONCOLOGY NURSE [facility] Sodium 138 135 - 145 meq/L 04/27/2020 6:19 AM ONCOLOGY NURSE [facility] Potassium 4.1 3.5 - 5.1 meq/L 04/27/2020 6:19 AM ONCOLOGY NURSE [facility] Chloride 108(H) 98 - 107 meq/L 04/27/2020 6:19 AM ONCOLOGY NURSE [facility] CO2 22 22 - 30 meq/L 04/27/2020 6:19 AM ONCOLOGY NURSE [facility] Anion Gap with K 12 6 - 20 meq/L 04/27/2020 6:19 AM ONCOLOGY NURSE [facility] Calcium 8.9 8.4 - 10.2 mg/dL 04/27/2020 6:19 AM ONCOLOGY NURSE [facility] Protein Total 6.7 6.3 - 8.2 g/dL 04/27/2020 6:19 AM ONCOLOGY NURSE [facility] Albumin 3.6 3.5 - 5.0 g/dL 04/27/2020 6:19 AM ONCOLOGY NURSE [facility] Alkaline Phosphatase 71 38 - 126 U/L 04/27/2020 6:19 AM [facility] AST - SGOT 48(H) 15 - 46 U/L 04/27/2020 6:19 AM [facility] ALT - SGPT 37(H) 0 - 35 U/L 04/27/2020 6:19 AM [facility] Bilirubin Total <0.8 0.2 - 1.3 mg/dL 04/27/2020 6:19 AM [facility] Corrected Calcium 9.2 8.4 - 10.2 mg/dL 04/27/2020 6:19 AM [facility] Age 65 Years 04/27/2020 6:19 AM [facility] eGFR Non- 72 mL/min/1.7 3m2 04/27/2020 6:19 AM [facility] eGFR 87 mL/min/1.7 3m2 04/27/2020 6:19 AM [facility] Blood BLOOD SPECIMEN / Unknown Venipuncture / Unknown 04/27/2020 5:30 AM ONCOLOGY NURSE 04/27/2020 5:55 AM ONCOLOGY NURSE Lynda Sandoval MD LAB BLOOD Final Result [facility] [address] [place] [address] * DEXA SCAN (01/12/2019 2:57 PM CDT) Anatomical Region Laterality Modality Spine Diaphanography 01/17/2019 5:11 PM CDT Narrative 01/17/2019 5:11 PM CDT Patient Name: ANNA VERMA Date of : 1955 Procedure: DEXA SCAN Date of Service: 01/12/2019 EXAM: DEXA SCAN INDICATION: ICD-10 Z78.0 History of menopause menopause COMPARISON(S): None available. RESULTS: Lumbar spine from L1 through L4: Bone mineral density 1.324 g/cm2 T-score 2.5. Right femur: Bone mineral density 0.773 g/cm2 T-score -0.7. IMPRESSION: 1. Normal bone density. The FRAX assessment of fracture risk gives 10 year probability of major osteoporotic fracture of 11%, for hip fracture 0.7%. Major osteoporotic fracture involves clinical spine, hip, shoulder, or wrist. FRAX is a trademark of the World Health Organization Collaborating [place] [employer] Metabolic Bone Diseases, [employer], [place]. Finalized by: Sara Boucher MD on 01/17/2019 5:11 PM CDT Patient/Procedure Information: [facility] MRN/MARGE: [id number] Order Number: [id number] Accession Number: [id number] Ordering Provider: GEOVANNA LERNER Authorizing Provider: GEOVANNA LERNER Procedure Note Sara Boucher MD - 01/17/2019 Patient Name: ANNA VERMA Date of : 1955 Procedure: DEXA SCAN Date of Service: 01/12/2019 EXAM: DEXA SCAN INDICATION: ICD-10 Z78.0 History of menopause menopause COMPARISON(S): None available. RESULTS: Lumbar spine from L1 through L4: Bone mineral density 1.324 g/cm2 T-score 2.5. Right femur: Bone mineral density 0.773 g/cm2 T-score -0.7. IMPRESSION: 1. Normal bone density. The FRAX assessment of fracture risk gives 10 year probability of majorosteoporotic fracture of 11%, for hip fracture 0.7%. Major osteoporoticfracture involves clinical spine, hip, shoulder, or wrist. FRAX is atrademark of the World Health Organization Collaborating [place] for[employer] Diseases, [employer] [place], [place]. Finalized by: Sara Boucher MD on 01/17/2019 5:11 PM CDT Patient/Procedure Information: [facility] MRN/[facility]: [id number] Order Number: [id number] Accession Number: [id number] Ordering Provider: GEOVANNA LERNER Authorizing Provider: GEOVANNA LERNER Authorjagdish Provider Result Type Result Stat us Geovanna Lerner MD MAMMOGRAPHY Final Result * (ABNORMAL) HEPATITIS C ANTIBODY REFLEX TO HCV RNA CONFIRMATION (10/14/2016 10:17 AM CDT) Hepatitis C Antibody Interp Reactive( A) Nonreactive 10/14/2016 11:28 PM CDT Comment:Confirmatory testing sent to [facility]. Blood BLOOD SPECIMEN / Unknown Venipuncture / Unknown 10/14/2016 10:17 AM CDT 10/14/2016 10:16 AM CDT us Geovanna Lerner MD LAB BLOOD Final Result [address] [place] [address] from Last 3 Months or Most Recently Relevant to Health Maintenance Advance Directives For more information, please contact: [phone] Documents on File Type Date Recorded Patient Bsa/Aml Compliance Officer Expl anation Advance Directives and Living Will 04/23/2020 * Full Code (Latest Code Status on File) Date Activated Date Inactivated Comments 04/23/2020 3:59 PM 04/27/2020 7:21 PM * Full Code Date Activated Date Inactivated Comments 12/18/2019 4:45 PM 12/20/2019 7:40 PM * Full Code Date Activated Date Inactivated Comments 11/26/2015 10:39 AM 12/03/2015 5:15 PM * Full Code Date Activated Date Inactivated Comments 09/26/2015 7:32 AM 09/26/2015 5:57 PM Care Teams Punch Card Operator Relationship Specialty Start Date End Date Provider, No Attributed, RESOURCE [address] PCP - Attributed Provider 02/23/24 Natalie Estrada MD [address] [place] [address] Nephrology (Internal Medicine) 09/18/21 Jakub Barr MD [address] [place] [address] Orthopedic Surgery 09/18/21 Shawn Ware APRN-HOSIERY LOOPER [address] [place] [address] HOSIERY LOOPER - Oncology 09/18/21
[2024-06-20 16:35] LABS: Basophils Percent Auto 0.3 % (0.0-3.0); Eosinophils Percent Auto 0.9 % (0.0-7.0); Hematocrit 35.4 % (33.0-51.0); Hemoglobin* 11.8 gm/dL (12.0-16.0); Immature Granulocytes Pct Auto 0.1 %; Lymphocytes Percent Auto 12.6 % (20-44); Mean Corpuscular HGB Conc 33 gm/dL (32-36); Mean Corpuscular Hemoglobin 31 pg (26-34); Mean Corpuscular Volume 92 fL (80-100); Monocytes Percent Auto 8.4 % (0.0-11.0); Neutrophils Percent Auto 77.7 % (42.0-72.0); Platelet Count* 302 K/uL (140-440); RDW Coefficient of Variation % 12.7 % (11.5-15.5); Red Blood Count 3.87 m/uL (4.00-5.20); White Blood Count* 18.59 K/uL (4.50-11.00)
--- OUTSIDE RECORDS SUMMARY | 2024-06-20 16:35 | XMS_ITS | Encounter Summary ---
Author Organization [facility] Address [address] [place] [address] Care Team Providers Care Frame Coverer Name Role Phone Laly Dickey P.A.-CKavya Primary Care Pro vider Encounter Details Date Type Department Care Team (Late st Contact Info) Description 06/20/2024 10:32 AM [facility] Hospital Encounter Department of Laboratory Medicine in [place], [place] [address] [facility] [place] [address] Laly Dickey MPAS P.A.-C. [address] [facility] [place] [address] Parotitis Social History Tobacco Use Types Packs/Day Years Used Date Smoking Tobacco: Former Cigarettes 2 30 0 11/13/1975 - 11/12/2005 Passive Smoke Exposure: Past Smokeless Tobacco: Never Alcohol Use Standard Drinks/Week Comments Not Currently 0 (1 standard drink = 0.6 oz pur e alcohol) [facility] Utilities Answer Date Recorded In the past 12 months has [facility] [employer], gas, oil, or water [employer] threatened to shut off services in your home? No 02/14/2024 Humiliation, Afraid, Rape, and Kick questionnair e [...] PHQ-2 Answer Date Recorded PHQ-2 Score 0 02/14/2024 Exercise Vital Sign Answer Date Recorde d On average, how many days pe r week do you engage in moderate to strenuous exercise (like a brisk walk)? 2 days 02/14/2024 On average, how many minutes do you engage in exercise at this level? 20 min 02/14/2024 Hunger Vital Sign Answer Date Recorded Within the past 12 months, y ou worried that your food would run out before you got the money to buy more. Never true 02/14/20 24 Within the past 12 months, t he food you bought just didn't last and you didn't have money to get more. Never true 02/14/2024 PRAPARE - Transportation Answer Date Re corded In the past 12 months, has l ack of transportation kept you from medical appointments or from getting medications? No 01/29 In the past 12 months, has l ack of transportation kept you from meetings, work, or from getting things needed for daily living? No 02/14/2024 Depression Answer Date Recor ded PHQ-9 Total Score (max 27) 5 02/13 Nutrition Answer Date Recorded On average, how many serving s of fruits and vegetables do you eat per day (serving size is equal to 1 cup or approximately the size of a tennis ball)? 3-5 02/14/2024 Dental Answer Date Recorded Dental: Regular Dentist Yes 12/19/19 Employment Answer Date Recorded Employment status Retired 02/14/2024 Housing Stability Answer Date Recorded What is your living situation today? I have a [facility] place to live 02/14/2024 Comments No Sex and Gender Information Value Date Recorded Sex Assigned at Female 03/19/2023 10:10 AM CDT Legal Sex Female 1:31 PM RE[employer]IGERATION PLANT CORK INSULATOR Gender Identity Female 03/19/2023 10:10 AM CDT Sexual Orientation Not on file documented as of this encounter Plan of Treatment Upcoming Encounters Date Type Department Care Team (Latest Contact Info) Description 06/21/2024 9:00 AM RE[employer]ERATION PLANT C[employer] INSULATOR Appointment Department of Radiology in [place], [place] [address] [place] [phone] Laly Dickey MPAS, P.A.-C. [address] [place] [phone] 07/05/2024 9:30 AM REFRIGERATION PLANT CORK INSULATOR Lab Department of Laboratory Medicine and Pathology, [facility] in [place], [place] [address] [place] [phone] Agustin Granda M.D., Ph.D. [address] [place] [phone] 07/05/2024 1:30 PM RE[employer]IGERATION PLANT CORK INSULATOR Comprehensive Visit Division of Trauma Critical Care and General Surgery in [address] [phone] Agustin Granda M.D., Ph.D. [address] [place] [phone] 07/05/2024 3:00 PM RE[employer]IGERATION PLANT CORK INSULATOR Appointment Department of Neurology in [place], [place] [address] [place] [phone] Agustin Granda M.D., Ph.D. [address] [place] [phone] Discharge Disposition: Home or Self Care 07/06/2024 7:24 PM RE[employer]IGERATION PLANT CORK INSULATOR Hospital Encounter Post Anesthesia Care Unit in [place] [address] [address] [place] [phone] Agustin Granda M.D., Ph.D. [address] [place] [phone] 07/06/2024 7:24 PM REFRIGERATION PLANT CORK INSULATOR - 07/06/2024 10:14 PM REFRIGERATION PLANT CORK INSULATOR Surgery [facility] MAIN OR [address] [place] [phone] Agustin Granda M.D., Ph.D. [address] [place] [phone] AMMONIA NITRATE OPERATOR shunt placement 07/20/2024 10:00 AM RE[employer]ERATION PLANT CORK INSULATOR Office Visit Department of Community Internal Medicine in [address] [phone] Laly Dickey MPAS, P.A.-C. [address] [place] [phone] 07/28/2024 8:30 AM REFRIGERATION PLANT CORK INSULATOR Appointment Department of Radiology in [address] [phone] Laly Dickey MPAS, P.A.-C. [address] [place] [phone] Discharge Disposition: Home or Self Care Scheduled Procedures Name Priority Associated Diagnoses Date/Ti me IMPLANTATION SHUNT VENTRICULAR PERITONEAL Hydrocephalus Normal Pressure (HCC) 07/06/2024 7:24 PM REFRIGERATION PLANT CORK INSULATOR ARTHROPLASTY TOTAL REVERSE SHOULDER Fracture 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 documented as of this encounter Procedures Procedure Name Priority Date/Time Associated Diagnosis Comments CBC WITH DIFFERENTIAL, B Routine 06/20/2024 10:42 AM RE[employer]ERATION PLANT CORK INSULATOR Parotitis C-REACTIVE PROTEIN (CRP), S/P Routine 06/20/2024 10:42 AM RE[employer]ERATION PL[employer] C[employer] INSULATOR Parotitis documented in this encounter Results * (ABNORMAL) CRP (C-Reactive Protein) (06/20/2024 10:42 AM REFRIGERATION PLANT CORK INSULATOR) C-Reactive Protein (CRP), P 56.8(H) <5.0 mg/L 06/20/2024 1:58 PM REFRIGERATION PLANT CORK INSULATOR OWAT Blood (Blood, Venous) 06/20/2024 10:42 AM REFRIGERATION PLANT CORK INSULATOR 06/20/2024 1:22 PM REFRIGERATION PLANT CORK INSULATOR us Laly LAKHANI, P.A.-C. LAB BLOOD ADD-ON Final Result [facility] [address] [place] [address], [place] OWAT [facility] [place] [address] [place] [address] * (ABNORMAL) CBC with Differential, Blood (06/20/2024 10:42 AM REFRIGERATION PLANT CORK INSULATOR) Hemoglobin 12.4 11.6 - 15.0 g/dL 06/20/2024 11:12 AM REFRIGERATION PLANT CORK INSULATOR FB60 Hematocrit 37.1 35.5 - 44.9 % 06/20/2024 11:12 AM REFRIGERATION PLANT CORK INSULATOR FB60 Erythrocytes 4.09 3.92 - 5.13 x10(12)/L 06/20/2024 11:12 AM REFRIGERATION PLANT CORK INSULATOR FB60 MCV 90.7 78.2 - 97.9 fL 06/20/2024 11:12 AM REFRIGERATION PLANT CORK INSULATOR FB60 RBC Distrib Width 12.7 12.2 - 16.1 % 06/20/2024 11:12 AM REFRIGERATION PLANT CORK INSULATOR FB60 Platelet Count 330 157 - 371 x10(9)/L 06/20/2024 11:12 AM REFRIGERATION PLANT CORK INSULATOR FB60 Leukocytes 17.7(H) 3.4 - 9.6 x10(9)/L 06/20/2024 11:12 AM REFRIGERATION PLANT CORK INSULATOR FB60 Neutrophils 13.64(H) 1.56 - 6.45 x10(9)/L 06/20/2024 11:12 AM REFRIGERATION PLANT C[employer] INSULATOR FB60 Lymphocytes 2.28 0.95 - 3.07 x10(9)/L 06/20/2024 11:12 AM REFRIGERATION PLANT CORK INSULATOR FB60 Monocytes 1.54(H) 0.26 - 0.81 x10(9)/L 06/20/2024 11:12 AM REFRIGERATION PLANT C[employer] INSULATOR FB60 Eosinophils 0.17 0.03 - 0.48 x10(9)/L 06/20/2024 11:12 AM REFRIGERATION PLANT CORK INSULATOR FB60 Basophils 0.05 0.01 - 0.08 x10(9)/L 06/20/2024 11:12 AM REFRIGERATION PLANT CORK INSULATOR FB60 Blood (Blood, Venous) 06/20/2024 10:42 AM REFRIGERATION PLANT CORK INSULATOR 06/20/2024 10:42 AM REFRIGERATION PLANT CORK INSULATOR Laly LAKHANI P.A.-C. LAB BLOOD ADD-ON Final Result [facility] [address] [place] [address], [facility]60 [facility] in [place] [address] [place] [address] documented in this encounter Visit Diagnoses Diagnosis Hydrocephalus Normal Pressure (HCC)- Primary Parotitis Hydrocephalus Normal Pressure (HCC) documented in this encounter Additional Health Concerns Assessment Noted Time PHQ-9 Depression Total Score: 5 02/14/20 24 9:00 AM CDT documented as of this encounter Care Teams Frame Coverer Relationship Specialty Start Date End Date Laly Dickey MPAS, P.A.-C. [address] [place] [phone] PCP - General Internal Medicine 07/28/22 documented as of this encounter
--- OUTSIDE RECORDS SUMMARY | 2024-06-20 16:35 | XMS_ITS | Encounter Summary ---
Author Organization [facility] [employer] [facility] Address [address] [place] [address] [address] [place] [address] Care Team Providers Care Wire Fence Erector Name Role Phone Gen Michaels MD Primary Care Provider [phone] Ambrosio Hill MD Primary Care Provider [phone] Ambrosio Hill MD Unavailable Provider, No Attributed RESOURCE Unavailable Unavailable Ambrosio Hill MD Unavailable + Ambrosio Hill MD Unavailable Natalie Estrada MD Unavailable [phone] Jakub Barr MD Unavailable [phone] Merary Ware PARBOILER-FARM APPRAISER Unavailable [phone] Provider, No Attributed RESOURCE Unavailable Unavailable Ambrosio Hill MD Unavailable + Provider, No Attributed RESOURCE Unavailable Unavailable Encounter Details Date Type Department Care Team (Late st Contact Info) Description 12/18/2013 Dictated / No Visit [facility] [address] [place] [address] Gen Michaels MD [address] [place], [place] [phone] Social History Tobacco Use Types Packs/Day Years Used Date Smoking Tobacco: Former Cigarettes Q uit: 02/29/2008 Smokeless Tobacco: Never Alcohol Use Standard Drinks/Week Comments Not Asked 0 (1 standard drink = 0.6 oz [...] on file documented as of this encounter Progress Notes * Gen Michaels MD - 12/18/2013 3:58 PM CDT 12/18/2013 RAJINDER VERMA [address] [place] [address] MR#: [id number] CSN: Dear Rajinder: I have received the report of your blood tests. Your tests for inflammation are slightly elevated. Normal for a CRP is 1, and you are at 1.2. The normal for ESR is 20, and you are at 28. Both of these are slight elevations and may indicate an inflammatory process. If you are able, you should continue to use a daily anti-inflammatory. We also checked your blood count, and it was normal at 8,200 with no sign of any infection. Sincerely, Gen Michaels M.D., [facility] If you have signed up for [employer], please message me that you have received this letter. [id number] documented in this encounter Plan of Treatment Not on file documented as of this encounter Visit Diagnoses Not on filedocumented in this encounter Additional Health Concerns Infection Onset Date Last Indicated Resolved Time COVID-19 04/23/2020 04/23/2020 05/03/2020 11:5 7 PM CERTIFIED PEDIATRIC NURSE PRACTITIONER documented as of this encounter Care Teams Wire Fence Erector Relationship Specialty Start Date End Date Gen Michaels MD [address] [facility] [place] [address] PCP - General Family Medicine 07/25/13 07/05/14 Ambrosio Hill MD [address] [place] [address] PCP - General Family Medicine 07/06/14 03/04/22 Ambrosio Hill MD [address] [facility] [place] [address] PCP - Attributed Provider 01/30/16 04/19/16 Provider, No Attributed, RESOURCE [address] PCP - Attributed Provider 04/20/16 04/21/16 Ambrosio Hill MD [address] [place] [address] PCP - Attributed Provider 04/22/16 11/21/20 Ambrosio Hill MD [address] [place] [address] PCP - Attributed Provider 11/22/20 03/23/22 Provider, No Attributed, RESOURCE [address] PCP - Attributed Provider 03/24/22 05/26/22 Ambrosio Hill MD [address] [place] [address] PCP - Attributed Provider 05/27/22 02/22/24 Provider, No Attributed, RESOURCE [address] PCP - Attributed Provider 02/23/24 Natalie Estrada MD [address] [place] [address] Nephrology (Internal Medicine) 09/18/21 Jakub Barr MD [address] [place] [address] Orthopedic Surgery 09/18/21 Merary Ware APRN-FARM APPRAISER [address] [place] [address] FARM APPRAISER - Oncology 09/18/21 documented as of this encounter
--- OUTSIDE RECORDS SUMMARY | 2024-06-20 16:35 | XMS_ITS | Encounter Summary ---
Author Organization [facility] Address [address] [place] [address] Care Team Providers Care Hospital Librarian Name Role Phone Laly Dickey P.A.-C. Primary Care Pro vider Reason for Visit * Reason Onset Date Comments Swollen Glands 06/19/2024 Encounter Details Date Type Department Care Team (Late st Contact Info) Description 06/19/2024 Nurse Triage Department of Community Internal Medicine in [place], [place] [address] [phone] Indira Carrillo, R.N. Swollen Glands Social History Tobacco Use Types Packs/Day Years Used Date Smoking Tobacco: Former Cigarettes 2 30 0 11/13/1975 - 11/12/2005 Passive Smoke Exposure: Past Smokeless Tobacco: Never Alcohol Use Standard Drinks/Week Comments Not Currently 0 (1 standard drink = 0.6 oz pur e alcohol) [facility] Utilities Answer Date Recorded In the past 12 months has [employer], gas, oil, or water [employer] threatened to shut off services in your [...] your living situation today? I have a [facility] place to live 02/14/2024 Comments No Sex and Gender Information Value Date Recorded Sex Assigned at Female 03/19/2023 10:10 AM CDT Legal Sex Female 1:31 PM SUGAR SAMPLER Gender Identity Female 03/19/2023 10:10 AM CDT Sexual Orientation Not on file documented as of this encounter Miscellaneous Notes * Telephone Encounter - Steph Andersen Indira Diane Thomas. - 06/19/2024 7:54 AM SUGAR SAMPLER Chief Complaint / Reason for Call Patient is a 69 y.o. female calling regarding Swollen Glands. Assessment Concern: Patient has been having a sore mouth, then a sore throat. This morning she woke up with a swollen lump under her right ear that is the size of a grapefruit and is warm to the touch. She thinks she is afebrile. Present for: sore mouth and throat for a few days, swollen gland appeared this morning. Home cares tried: gargling with saltwater Calling to request: advice The recommended disposition is See a health care provider within 24 hours. Patient has an appointment with her primary care provider tomorrow at 11AM. We spoke with scheduling and they were able to find an appointment at 9AM tomorrow with the same provider. Patient knows to be seen in the ED if it affects her breathing or swallowing, if she develops a fever or gets worse. Advised she can call back at any time to review her symptoms. Care Advice Patient/Caregiver understands and will follow care advice?: Yes, able to teach back Lymph Nodes - Jvomzfz-Kpaof-WZ Nurse Indira Basilio Jun 19, 2024 08:02 AM Care Advice PAIN MEDICINES: * For pain relief, you can take either acetaminophen, ibuprofen, or naproxen. * They are rcyb-uph-bqnutnh (OTC) pain drugs. You can buy them at the drugstore. * ACETAMINOPHEN - REGULAR STRENGTH TYLENOL: Take 650 mg (two 325 mg pills) by mouth every 4 to 6 hours as needed. Each Regular Strength Tylenol pill has 325 mg of acetaminophen. The most you should take is 10 pills a day (3,250 mg total). Note: In [place], the maximum is 12 pills a day (3,900 mg total). * ACETAMINOPHEN - EXTRA STRENGTH TYLENOL: Take 1,000 mg (two 500 mg pills) every 6 to 8 hours as needed. Each Extra Strength Tylenol pill has 500 mg of acetaminophen. The most you should take is 6 pills a day (3,000 mg total). Note: In [place], the maximum is 8 pills a day (4,000 mg total). * IBUPROFEN (SUCH MOTRIN, ADVIL): Take 400 mg (two 200 mg pills) by mouth every 6 hours. The most you should take is 6 pills a day (1,200 mg total). * NAPROXEN (SUCH ALEVE): Take 220 mg (one 220 mg pill) by mouth every 8 to 12 hours as needed. You may take 440 mg (two 220 mg pills) for your first dose. The most you should take is 3 pills a day(660 mg total). Note: In [place], the maximum is 2 pills a day (one every 12 hours; 440 mg total). * Use the lowest amount of medicine that makes your pain better. CALL BACK IF: * You become worse Patient was warm transferred toCarmen Patient Appointment Life Specialist at the clinic forfurther assistance. Reason for Disposition Rapid increase in size of node over several hours Protocols used: Lymph Nodes - [id number] R SAMPLER documented in this encounter Plan of Treatment Upcoming Encounters Date Type Department Care Team (Latest Contact Info) Description 06/21/2024 9:00 AM SUGAR SAMPLER Appointment Department of Radiology in [place], [place] [address] [place] [phone] Laly Dickey MPAS, P.A.-C. [address] [place] [phone] 07/05/2024 9:30 AM SUGAR SAMPLER Lab Department of Laboratory Medicine and Pathology, [facility], in [place], [place] [address] [place] [address] Agustin Granda M.D., Ph.D. [address] [place] [phone] 07/05/2024 1:30 PM SUGAR SAMPLER Comprehensive Visit Division of Trauma Critical Care and General Surgery in [place], [place] [address] [place] [phone] Agustin Granda M.D., Ph.D. [address] [place] [phone] 07/05/2024 3:00 PM SUGAR SAMPLER Appointment Department of Neurology in [place], [place] [address] [place] [phone] Agustin Granda M.D., Ph.D. [address] [place] [phone] Discharge Disposition: Home or Self Care 07/06/2024 7:24 PM SUGAR SAMPLER Hospital Encounter Post Anesthesia Care Unit in [place], [place] [address] [place] [phone] Agustin Granda M.D., Ph.D. [address] [place] [phone] 07/06/2024 7:24 PM SUGAR SAMPLER - 07/06/2024 10:14 PM SUGAR SAMPLER Surgery [facility] OR [address] [place] [address] [phone] Agustin Granda M.D., Ph.D. [address] [place] [phone] MORTGAGE LOAN PROCESSOR shunt placement 07/20/2024 10:00 AM SUGAR SAMPLER Office Visit Department of Community Internal Medicine in [address] [phone] Laly Dickey MPAS, P.A.-C. [address] [place] [phone] 07/28/2024 8:30 AM SUGAR SAMPLER Appointment Department of Radiology in [place], [place] [address] [place] [phone] Laly Dickey MPAS, P.A.-C. 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 [address] [place] [address] [place] [phone] PCP - General Internal Medicine 07/28/22 documented as of this encounter
--- OUTSIDE RECORDS SUMMARY | 2024-06-20 16:35 | XMS_ITS | Encounter Summary ---
Author Organization [facility] Address [address] [place] [address] Care Team Providers Care Corporate General Manager Name Role Phone Laly Dickey P.A.-CKavya Primary Care Pro vider Encounter Details Date Type Department Care Team (Latest Contact Info) Description 06/14/2024 9:23 AM SUMMER CHILD CAREGIVER - 06/14/2024 11:59 PM SUMMER CHILD CAREGIVER Hospital Encounter Department of Laboratory Medicine in [place], [place] [address] [facility] [phone] Laly Dickey MPAS P.A.-C. [address] [place] [phone] Chronic Kidney Disease (CKD), Stage 3b Glomerular Filtration Rate (GFR) 30 To 44 (HCC) Discharge Disposition: Home or Self Care Social History Tobacco Use Types Packs/Day Years Used Date Smoking Tobacco: Former Cigarettes 2 30 0 11/13/1975 - 11/12/2005 Passive Smoke Exposure: Past Smokeless Tobacco: Never Alcohol Use Standard Drinks/Week Comments Not Currently 0 (1 standard drink = 0.6 oz pur e alcohol) [facility] Utilities Answer Date Recorded In the past 12 months has e [employer], gas, oil, or water [employer] threatened to shut off services in your [...] your living situation today? I have a [facility] place to live 02/14/2024 Comments No Sex and Gender Information Value Date Recorded Sex Assigned at Female 03/19/2023 10:10 AM CDT Legal Sex Female 1:31 PM SUMMER CHILD CAREGIVER Gender Identity Female 03/19/2023 10:10 AM CDT Sexual Orientation Not on file documented as of this encounter Medications at Time of Discharge albuterol 90 mcg/actuation inhaler Inhale 2 puffs every 4 (four) hours as needed for shortness of breath. 54 g 3 08/13/[address] tablet Take 81 mg by mouth at bedtime. 02/09/2022 atorvastatin (Lipitor) 80 mg tablet Take 1 tablet (80 mg total) by mouth daily. 90 tablet 3 06/14/2024 BD Ultra-Fine Short Pen Needle 31 gauge x 5/16 needle USE DIRECTED 11/07/2022 cyclobenzaprine (FlexeriL) 10 mg tablet TAKE 1 TABLET(10 MG) BY MOUTH THREE TIMES DAILY NEEDED FOR MUSCLE SPASMS 90 tablet 1 04/24/2024 diclofenac sodium (Voltaren) 1 % gel Apply 4 g topically 4 (four) times a day as needed (Pain). Apply to right shoulder. 200 g 3 01/12/2024 ezetimibe (Zetia) 10 mg tablet Take 1 tablet (10 mg total) by mouth daily. Patient needs Labs for further refills. 90 tablet 3 05/01/2024 ipratropium-albu teroL (DUONEB) 0.5-2.5 mg/3 mL nebulizer solution Inhale 3 mL by nebulization 4 (four) times a day as needed for wheezing or shortness of breath. 90 mL 10/19/2023 losartan (Cozaar) 50 mg tablet TAKE 1 TABLET(50 MG) BY MOUTH DAILY 90 tablet 3 05/22/2024 multivit with minerals/lutein (MULTIVITAMIN 50 PLUS ORAL) Take 1 tablet by mouth daily. omeprazole (PriLOSEC) [address] capsule Take 1 capsule (40 mg total) by mouth 2 (two) times a day before breakfast and dinner. 180 capsule 3 08/30/2023 OneTouch Verio Reflect Meter mis APPLY 1 EACH TOPICALLY 1 each 03/07/2024 OneTouch Verio test strips 3 test See Admin Instructions. 270 strip 3 06/14/2024 polyethylene glycol (MIRALAX) 17 gram/dose oral powder Take 1 packet by mouth as needed. 12/20/2019 semaglutide (Ozempic) 2 mg/dose (8 mg/3 mL) injection Inject 2 mg under the skin every 7 (seven) days. 3 mL 11 06/14/2024 Spiriva Respimat 2.5 mcg/actuation inhaler inhale 2 puffs by mouth daily 12 g 3 03/13/2024 torsemide (Demadex) 20 mg tablet TAKE 4 TABLETS(80 MG) BY MOUTH DAILY 360 tablet 3 06/05/2024 venlafaxine XR (EFFEXOR-XR) 150 mg 24 hr capsule TAKE 1 CAPSULE(150 MG) BY MOUTH DAILY 90 capsule 3 08/02/2023 amitriptyline (ElaviL) 50 mg tablet TAKE 3 TABLETS(150 MG) BY MOUTH AT BEDTIME 270 tablet 3 02/24/2024 5 gabapentin (Neurontin) 300 mg capsule Take 1 capsule (300 mg total) by mouth 3 (three) times a day. 180 capsule 3 02/14/2024 5 ibuprofen 200 mg tablet Take 400 mg by mouth every 6 (six) hours as needed for pain. 5 traMADoL (Ultram) 50 mg tabletIndication s:Chronic Pain/Nonacute Pain Take 1 tablet (50 mg total) by mouth at bedtime as needed for pain Indications: Chronic Pain/Nonacute Pain. 28 tablet 06/09/2024 5 documented as of this encounter Plan of Treatment Upcoming Encounters Date Type Department Care Team (Latest Contact Info) Description 06/21/2024 9:00 AM SUMMER CHILD CAREGIVER Appointment Department of Radiology in [place], [place] [address] [place] [address] Laly Dickey MPAS, P.A.-C. [address] [place] [phone] 07/05/2024 9:30 AM SUMMER CHILD CAREGIVER Lab Department of Laboratory Medicine and [facility]ology, [facility], in [place], [place] [address] [place] [phone] Agustin Granda M.D., Ph.D. [address] [place] [phone] 07/05/2024 1:30 PM SUMMER CHILD CAREGIVER Comprehensive Visit Division of Trauma Critical Care and General Surgery in [place], [place] [address] [place] [phone] Agustni Granda M.D., Ph.D. [address] [place] [phone] 07/05/2024 3:00 PM SUMMER CHILD CAREGIVER Appointment Department of Neurology in [place], [place] [address] [place] [phone] Agustin Granda M.D., Ph.D. [address] [place] [phone] Discharge Disposition: Home or Self Care 07/06/2024 7:24 PM SUMMER CHILD CAREGIVER Hospital Encounter Post Anesthesia Care Unit in [place], [place] [address] [place] [address] [phone] Agustin Granda M.D., Ph.D. [address] [place] [phone] 07/06/2024 7:24 PM SUMMER CHILD CAREGIVER - 07/06/2024 10:14 PM SUMMER CHILD CAREGIVER Surgery [facility] [address] [place] [address] [phone] Agustin Granda M.D., Ph.D. [address] [place] [address] [phone] ORTHODONTIST VICE PRESIDENT shunt placement 07/20/2024 10:00 AM SUMMER CHILD CAREGIVER Office Visit Department of Community Internal Medicine in [place] [address] [place] [phone] Laly Dickey MPAS, P.A.-C. [address] [place] [phone] 07/28/2024 8:30 AM SUMMER CHILD CAREGIVER Appointment Department of Radiology in [place], [place] [address] [place] [phone] Laly Dickey MPAS, P.A.-C. 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 Creatinine 56 mg/dL 06/14/2024 2:02 PM SUMMER CHILD CAREGIVER OWAT Albumin/Creatinine Ratio <21 <25 mg/g 06/14/2024 2:02 PM SUMMER CHILD CAREGIVER OWAT Comment: This ratio may not correspond with the reference range because one or both of the values used to calculate the ratio was above or below the quantification limits. Urine (Urine, Midstream) 06/14/2024 9:30 AM SUMMER CHILD CAREGIVER 06/14/2024 1:05 PM SUMMER CHILD CAREGIVER us Laly LAKHANI P.A.-C. LAB URINE ORDERAB LES Final Result [facility] [address] [place] [address], [facility] [address] [facility] [place] [address] [place] [address] documented in this encounter Visit Diagnoses Diagnosis Hydrocephalus Normal Pressure (HCC)- Primary Chronic Kidney Disease (CKD), Stage 3b Glomerular Filtration Rate (GFR) 30 To 44 (HCC) Hydrocephalus Normal Pressure (HCC) documented in this encounter Additional Health Concerns Assessment Noted Time PHQ-9 Depression Total Score: 5 02/14/20 24 9:00 AM CDT documented as of this encounter Care Teams Corporate General Manager Relationship Specialty Start Date End Date Laly Dickey MPAS, P.A.-C. [address] [place] [address] [place] [phone] PCP - General Internal Medicine 07/28/22 documented as of this encounter
--- OUTSIDE RECORDS SUMMARY | 2024-06-20 16:35 | XMS_ITS ---
Author Organization [facility] Address [address] [place] [address] Care Team Providers Care Layboy Operator Name Role Phone Unavailable Unavailable Unavailable Surgery Details Not on file Complications Check Surgery Details section. Procedure Estimated Blood Loss Check Surgery Details section. Procedure Findings Check Surgery Details section. Procedure Specimens Taken Check Surgery Details section.
--- OUTSIDE RECORDS SUMMARY | 2024-06-20 16:35 | XMS_ITS | Referral Summary ---
Author Organization [facility] Address [address] [place] [address] Care Team Providers Care Electrotype Finisher Name Role Phone Laly Dickey P.A.-C. Primary Care Pro vider Source Comments Patient records contain information from all sites at [facility]. For routine questions regarding patient records, call [phone] during business hours, M-F 8:00 AM - 5:00 PM Central Time. Record requests for emergency care only can be directed to [phone] at any time.[facility] Encounters Date Type Department Care Team Description 06/20/2024 Clinical Communication Department of Community Internal Medicine in [address] [phone] Laly Dickey MPAS, P.A.-C. Communication 06/20/2024 10:32 AM BUDGET MANAGER Hospital Encounter Department of Laboratory Medicine in [address] [phone] Laly Dickey MPAS PKavyaA.-C. Parotitis 06/20/2024 9:20 AM BUDGET MANAGER Office Visit Department of Community Internal Medicine in [address] [phone] Laly Dickey MPAS P.A.-C. 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 Swollen Glands 06/14/2024 9:23 AM BUDGET MANAGER - 06/14/2024 11:59 PM BUDGET MANAGER Hospital Encounter Department of Laboratory Medicine in [address] [phone] Laly Dickey MPAS, P.A.-C. Diabetes Mellitus Type 2 With Diabetic Polyneuropathy (HCC) Discharge Disposition: Home or Self Care 06/14/2024 9:23 AM BUDGET MANAGER - 06/14/2024 11:59 PM BUDGET MANAGER Hospital Encounter Department of Laboratory Medicine in [address] [phone] Laly Dickey MPAS, P.A.-C. Chronic Kidney Disease (CKD), Stage 3b Glomerular Filtration Rate (GFR) 30 To 44 (HCC) Discharge Disposition: Home or Self Care 06/14/2024 8:40 AM BUDGET MANAGER Office Visit Department of Community Internal Medicine in [address] [phone] Laly Dickey MPAS, P.A.-C. Obesity Body Mass Index 30-39.9 Adult (Primary Dx); Hydrocephalus Normal Pressure (HCC); Diabetes Mellitus Type 2 With Diabetic Polyneuropathy (HCC); Hyperlipidemia Mixed; Pain Low Back Chronic; Chronic Kidney Disease (CKD), Stage 3b Glomerular Filtration Rate (GFR) 30 To 44 (HCC); Hypertensive Chronic Kidney Disease With Stage 1 Through Stage 4 Chronic Kidney Disease, Or Unspecified Chronic Kidney Disease; Chronic Obstructive Pulmonary Disease (HCC); Chronic Diastolic (Congestive) Heart Failure (HCC); Anxiety Generalized Disorder; History Of Falling 06/13/2024 Clinical Communication Pharmacy Prior Auth RO [phone] Eli Baldwin I. 06/12/2024 Clinical Communication Department of Community Internal Medicine in [address] [phone] Laly Dickey MPAS, P.A.-C. Med Question 06/08/2024 Refill Department of Community Internal Medicine in [address] [phone] Laly Dickey MPAS, P.A.-C. Med Refill 06/07/2024 Refill Department of Community Internal Medicine in [address] [phone] Laly Dickey MPAS, P.A.-C. Med Refill 06/07/2024 7:41 AM BUDGET MANAGER - 06/07/2024 11:59 PM BUDGET MANAGER Hospital Encounter Department of Laboratory Medicine in [address] [phone] Laly Dickey MPAS, P.A.-C. Diabetes Mellitus Type 2 With Diabetic Polyneuropathy (HCC); Chronic Kidney Disease (CKD), Stage 3b Glomerular Filtration Rate (GFR) 30 To 44 (HCC); Diabetes Mellitus Type 2 With Diabetic Polyneuropathy (HCC) Discharge Disposition: Home or Self Care 06/03/2024 Refill Department of Community Internal Medicine in [address] [phone] Laly Dickey MPAS, P.A.-C. Med Refill 05/28/2024 Refill Department of Community Internal Medicine in [address] [phone] Laly Dickey MPAS, P.A.-C. Med Refill 05/21/2024 Refill Department of Community Internal Medicine in [address] [phone] Laly Dickey MPAS, P.A.-C. Med Refill 05/09/2024 Orders Only Department of Neurologic Surgery in [place], [place] [address] [place] [address] Brina Rich R.N. Hydrocephalus Normal Pressure (HCC) (Primary Dx) 05/08/2024 Refill Department of Community Internal Medicine in [place], [place] [address] [place] [address] Laly Dickey MPAS, P.A.-C. Med Refill 05/01/2024 Refill Department of Community Internal Medicine in [address] [phone] Garo Suresh P.A.-C. Med Refill 04/25/2024 Documentation Preoperative Evaluation Center in [place], [place] [address] [place] [phone] Zaida Denis APRN, C.N.P. 04/24/2024 4:00 PM BUDGET MANAGER Comprehensive Visit Department of Neurologic Surgery in [place], [place] [address] [place] [phone] Agustin Granda M.D., Ph.D. Preoperative Exam (Primary Dx); Hydrocephalus Normal Pressure (HCC) 04/22/2024 Refill Department of Community Internal Medicine in [address] [phone] Laly Dickey MPAS, P.A.-C. Med Refill 04/21/2024 9:30 AM BUDGET MANAGER Clinical Communication Virtual Review in [place], [place] [address] [place] [address] Pre-visit Intake 04/08/2024 Refill Department of Community Internal Medicine in [address] [phone] Laly Dickey MPAS, P.A.-C. Med Refill 04/04/2024 [facility] L[facility]ic[facility] MPAS, P.A.-C. Screening Mammogram Breast Cancer 03/22/2024 Clinical Communication Department of Neurology in [place], [place] [address] [place] [address] Otis Metz M.D. 03/21/2024 1:00 PM CDT Office Visit Department of Community Internal Medicine in [place], [place] [address] [place] [phone] Laly Dickey MPAS, P.A.-C. Pain Low Back Chronic (Primary Dx); Numbness Lower Extremity; Chronic Kidney Disease (CKD), Stage 3b Glomerular Filtration Rate (GFR) 30 To 44 ([facility]); Diabetes Mellitus Type 2 With Diabetic Polyneuropathy ([facility]) 03/20/2024 Refill Department of Community Internal Medicine in [place], [place] [address] [place] [address] Laly Dickey MPAS, P.A.-C. Med Refill from Last 3 Months Allergies Active Allergy Reactions Criticality Noted Date Comments Adhesive Hives (Reselect Reaction),Rash High 03/29 Blisters Metformin Other (see comments) 03/01/2023 GI intolerance Penicillin Hives (Reselect Reaction) High 03/29/2013 Hospitalized Medications aspirin [address] tablet Take 81 mg by mouth at bedtime. 02/10/20 22 Active polyethylene glycol (MIRALAX) 17 gram/dose oral powder Take 1 packet by mouth as needed. 12/20/19 20 Active multivit with minerals/lute in (MULTIVITAMIN 50 PLUS ORAL) Take 1 tablet by mouth daily. Active albuterol 90 mcg/actuation inhaler Inhale 2 puffs every 4 (four) hours as needed for shortness of breath. 54 g 3 08/14/19 23 Active BD Ultra-Fine Short Pen Needle 31 gauge x 10/13 needle USE DIRECTED 11/08/19 23 Active venlafaxine XR (EFFEXOR-XR) 150 mg 24 hr capsule TAKE 1 CAPSULE(150 MG) BY MOUTH DAILY 90 capsule 3 08/02/19 24 Active omeprazole (PriLOSEC) [address] capsule Take 1 capsule (40 mg total) by mouth 2 (two) times a day before breakfast and dinner. 180 capsule 3 08/30/19 24 Active ipratropium-a lbuteroL (DUONEB) 0.5-2.5 mg/3 mL nebulizer solution Inhale 3 mL by nebulization 4 (four) times a day as needed for wheezing or shortness of breath. 90 mL 05/21/20 24 Active diclofenac sodium (Voltaren) 1 % gel Apply 4 g topically 4 (four) times a day as needed (Pain). Apply to right shoulder. 200 g 3 01/12/20 24 Active OneTouch Verio Reflect Meter misc APPLY 1 EACH TOPICALLY 1 each 03/07/20 Active Spiriva Respimat 2.5 mcg/actuation inhaler inhale 2 puffs by mouth daily 12 g 3 03/13/20 24 Active cyclobenzapri ne (FlexeriL) 10 mg tablet TAKE 1 TABLET(10 MG) BY MOUTH THREE TIMES DAILY NEEDED FOR MUSCLE SPASMS 90 tablet 1 04/24/20 24 Active ezetimibe (Zetia) 10 mg tablet Take 1 tablet (10 mg total) by mouth daily. Patient needs Labs for further refills. 90 tablet 3 05/01/20 24 Active losartan (Cozaar) 50 mg tablet TAKE 1 TABLET(50 MG) BY MOUTH DAILY 90 tablet 3 05/22/20 24 Active torsemide (Demadex) 20 mg tablet TAKE 4 TABLETS(80 MG) BY MOUTH DAILY 360 tablet 3 06/05/19 25 Active OneTouch Verio test strips 3 test See Admin Instructions. 270 strip 3 06/14/19 25 Active semaglutide (Ozempic) 2 mg/dose (8 mg/3 mL) injection Inject 2 mg under the skin every 7 (seven) days. 3 mL 11 06/14/19 25 Active atorvastatin (Lipitor) 80 mg tablet Take 1 tablet (80 mg total) by mouth daily. 90 tablet 3 06/14/19 25 026 Active traMADoL (Ultram) 50 mg tabletIndicat ions:Chronic Pain/Nonacute Pain Take 1 tablet (50 mg total) by mouth 2 (two) times a day as needed for severe pain or score 7-10 of 10 Indications: Chronic Pain/Nonacute Pain. 28 tablet 06/20/19 25 Active amitriptyline (ElaviL) 50 mg tablet Take 2 tablets (100 mg total) by mouth at bedtime. 06/20/19 25 Active gabapentin (Neurontin) 300 mg capsule Take 1 capsule (300 mg total) by mouth 2 (two) times a day. 06/20/19 25 026 Active atorvastatin (LIPITOR) 80 mg tablet Take 1 tablet (80 mg total) by mouth daily. 90 tablet 3 08/04/19 025 Discontinued(R eorder) losartan (COZAAR) 50 mg tablet TAKE 1 TABLET(50 MG) BY MOUTH DAILY 90 tablet 3 07/12/19 24 024 Discontinued torsemide (DEMADEX) 20 mg tablet TAKE 4 TABLETS(80 MG) BY MOUTH DAILY 270 tablet 3 09/08/19 24 025 Discontinued OneTouch Verio test strips 3 test See Admin Instructions. 270 strip 3 09/13/19 025 Discontinued(R eorder) semaglutide (Ozempic) 1 mg/dose (4 mg/3 mL) injection Inject 1 mg under the skin every 7 (seven) days. 9 mL 3 01/04/20 025 Discontinued HumaLOG KwikPen Insulin 100 unit/mL pen 24 U with each meal. Adjust as follows: < 120 - 2 U; 120-179 no adjustment; 180-239 + 2 U; 240-299 + 4 U; 300-359 + 6 U; 360-419 + 8 Units; if > or = 420 >= + 10 Units. 10 mL 3 01/12/20 025 Discontinued Levemir FlexPen 100 unit/mL (3 mL) pen ADMINISTER 32 UNITS UNDER THE SKIN TWICE DAILY 60 mL 3 01/19/20 025 Discontinued gabapentin (Neurontin) 300 mg capsule Take 1 capsule (300 mg total) by mouth 3 (three) times a day. 180 capsule 3 02/14/20 025 Discontinued(R eorder) amitriptyline (ElaviL) 50 mg tablet TAKE 3 TABLETS(150 MG) BY MOUTH AT BEDTIME 270 tablet 3 02/24/20 025 Discontinued(R eorder) traMADoL (Ultram) 50 mg tabletIndicat ions:Chronic Pain/Nonacute Pain Take 1 tablet (50 mg total) by mouth at bedtime as needed for pain Indications: Chronic Pain/Nonacute Pain. 28 tablet 05/09/20 24 025 Discontinued traMADoL (Ultram) 50 mg tabletIndicat ions:Chronic Pain/Nonacute Pain Take 1 tablet (50 mg total) by mouth at bedtime as needed for pain Indications: Chronic Pain/Nonacute Pain. 28 tablet 06/09/19 25 025 Discontinued(R eorder) ibuprofen 200 mg tablet Take 400 mg by mouth every 6 (six) hours as needed for pain. 025 Discontinued Active Problems Problem Noted Date Diagnosed Date Hydrocephalus Normal Pressure 04/24/2024 Insomnia 03/01/2023 Migraine Headache 03/01/2023 Overview (09/07/2023): Amitriptyline for migraine prophylaxis and treatment of insomnia. Personal History Of Nicotine Dependence 03/01/20 Overview (03/01/2023): 60 pack year smoking history. 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 Patient elected for surgical intervention but has to cancel procedure. She continues on Tramadol 50 mg at bedtime. Nodule Pulmonary Solitary 11/12/2021 Overview (08/10/2022): CT Scan Chest Without Contrast (May 2022): IMPRESSION: 1. Stable intrapulmonary nodules 2. No new or enlarging pulmonary nodule. 3. Moderate, upper lobe predominant emphysematous changes Lung-RADs: 2 Benign Appearances or Behavior * Recommendation: Continued annual screening with repeat Low Dose CT (LDCT) in [address] scan in May 2023 Hypertensive Chronic Kidney Disease With Stage 1 Through Stage 4 Chronic Kidney Disease, Or Unspecified Chronic Kidney Disease 01/15/2021 Obesity Body Mass Index 30-39.9 Adult 06/06/2020 Pain Low Back Chronic 09/11/2015 09/18/2022 Overview (02/14/2024): No prior back surgeries Currently not enrolled in PT. Chronic Obstructive Pulmonary Disease 02/13/2015 Apnea Sleep Obstructive 02/13/2015 Diabetes Mellitus Type 2 With Diabetic Polyneuro alisha 08/08/2014 Gastroesophageal Reflux Disease Without Esophagi tis 08/08/2014 Venous Insufficiency Chronic Peripheral 07/06/19 15 Chronic Diastolic (Congestive) Heart Failure 10/2014 Overview (01/20/2023): Last echocardiogram December 2019 with ejection fraction of 60%. Anxiety Generalized Disorder 03/06/2014 Hyperlipidemia Mixed 10/06/2006 Resolved Problems Problem Noted Date Diagnosed Date Resolved Date Stenosis Carotid Artery Bilateral 01/09/2024 01/09/2024 Pain Shoulder Right 12/18/2019 01/09/20 24 Overview (08/03/2022): With recent humerus fracture on 10/19/2019. Hypertension Essential Primary 10/06/2006 12/27/2022 Immunizations Immunization Administration Dates Next Due HZV (ZOSTAVAX) 02/15/2013 HepB Adult (HEPLISAV-B) 02/14/2024,06/02/2023 Influenza TIV (IM) 04/02/2006 Influenza high dose QV(65 ye ars or older) (PF) 03/19/2023,02/09/2022,03/17/2021,2019,03/01/2019,03/22/2018 Influenza, Seasonal, Injectable 04/02/2006 Influenza, Unspecified 02/15/2013,2011,03/19/2011,2009,02/14/2009,04/03/2008,03/24/2007 PCV13 03/22/2018 PPSV23 03/29/2019,02/15/2013,02/24/2012 RZV (SHINGRIX) 07/14/2019,05/11/2019 Td (Adult), adsorbed 12/01/2022 Tdap 06/12/2014,02/15/2013 influenza trivalent high dos e (HD)(PF) 02/14/2024,03/22/2018 influenza vaccine quad (FLUZONE/FLUARIX) (6 months and older)(PF) 03/02/2017,03/10/2016,02/13/2015,2013 Social History Tobacco Use Types Packs/Day Years Used Date Smoking Tobacco: Former Cigarettes 2 30 0 11/13/1975 - 11/12/2005 Passive Smoke Exposure: Past Smokeless Tobacco: Never Tobacco Cessation:Counseling Given: Not Answered Alcohol Use Standard Drinks/Week Comments Not Currently 0 (1 standard drink = 0.6 oz pur e alcohol) [facility] Utilities Answer Date Recorded In the past 12 months has th e electric, gas, oil, or water company threatened to shut off services in your [...] medical appointments or from getting medications? No 09/1 10/2023 In the past 12 months, has l [...] your living situation today? I have a [facility] place to live 02/14/2024 Comments No Sex and Gender Information Value Date Recorded Sex Assigned at Female 03/19/2023 10:10 AM CDT Legal Sex Female 1:31 PM BUDGET MANAGER Gender Identity Female 03/19/2023 10:10 AM CDT Sexual Orientation Not on file Last Filed Vital Signs Vital Sign Reading Time Taken Comments Blood Pressure 101/63 06/20/2024 9:12 AM BUDGET MANAGER Pulse 94 06/20/2024 9:12 AM BUDGET MANAGER Temperature 36 C (96.8 F) 06/20/2024 9:07 AM BUDGET MANAGER Respiratory Rate 20 06/20/2024 9:07 AM BUDGET MANAGER Oxygen Saturation 98% 06/20/2024 9:07 AM BUDGET MANAGER Inhaled Oxygen Concentration - - Weight 105 kg (232 lb 9.4 oz) 06/20/2024 9:07 AM BUDGET MANAGER Height 171 cm (5' 7.32) 06/20/2024 9:07 AM BUDGET MANAGER Body Mass Index 36.08 06/20/2024 9:07 AM BUDGET MANAGER Plan of Treatment Upcoming Encounters Date Type Department Care Team (Latest Contact Info) Description 06/21/2024 9:00 AM BUDGET MANAGER Appointment Department of Radiology in [place], [place] [address] [place] [address] Laly Dickey MPAS, P.A.-C. 300 [facility] [place] [address] 07/05/2024 9:30 AM BUDGET MANAGER Lab Department of Laboratory Medicine and Pathology, [facility], in [place], [place] [address] [place] [phone] Agustin Granda M.D., Ph.D. [address] [place] [phone] 07/05/2024 1:30 PM BUDGET MANAGER Comprehensive Visit Division of Trauma Critical Care and General Surgery in [place] [id number] [place] [phone] Agustin Granda M.D., Ph.D. [address] [place] [phone] 07/05/2024 3:00 PM BUDGET MANAGER Appointment Department of Neurology in [place], [place] [address] [place] [phone] Agustin Granda M.D., Ph.D. [address] [place] [phone] Discharge Disposition: Home or Self Care 07/06/2024 7:24 PM BUDGET MANAGER Hospital Encounter Post Anesthesia Care Unit in [address] [phone] Agustin Granda M.D., Ph.D. [address] [place] [phone] 07/06/2024 7:24 PM BUDGET MANAGER - 07/06/2024 10:14 PM BUDGET MANAGER Surgery RST ROMB MAIN OR [facility] [address] [place] [phone] Agustin Granda M.D., Ph.D. [address] [place] [phone] DIRECTOR OF FINANCIAL REPORTING shunt placement 07/20/2024 10:00 AM BUDGET MANAGER Office Visit Department of Community Internal Medicine in [address] [phone] Laly Dickey MPAS, P.A.-C. 300 [facility] [place] [phone] 07/28/2024 8:30 AM BUDGET MANAGER Appointment Department of Radiology in [place], [place] 300 [facility] [place] [phone] Laly Dickey MPAS, P.A.-CKavya 300 [facility] [place] [phone] Discharge Disposition: Home or Self Care Scheduled Procedures Name Priority Associated Diagnoses Date/Ti me IMPLANTATION SHUNT VENTRICULAR PERITONEAL Hydrocephalus Normal Pressure (HCC) 07/06/2024 7:24 PM BUDGET MANAGER ARTHROPLASTY TOTAL REVERSE SHOULDER Fracture 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 Medical Devices Implanted Type Area Fly Maker Device Identifier Shelf Expiration Date Model / Serial / Lot Knee Implant Knee Implant Bilateral : Knee Ocular Lens Ocular Lens Bilateral : Eye Procedures Procedure Name Priority Date/Time Associated Diagnosis Comments C-REACTIVE PROTEIN (CRP), S/P Routine 06/20/2024 10:42 AM BUDGET MANAGER Parotitis CBC WITH DIFFERENTIAL, B Routine 06/20/2024 10:42 AM BUDGET MANAGER Parotitis BASIC METABOLIC PANEL, S/P Routine 06/14/2024 9:31 AM BUDGET MANAGER Diabetes Mellitus Type 2 With Diabetic Polyneuropathy (HCC) ALBUMIN, RANDOM, U Routine 06/14/2024 9: 30 AM BUDGET MANAGER Chronic Kidney Disease (CKD), Stage 3b Glomerular Filtration Rate (GFR) 30 To 44 (HCC) PHOSPHORUS (INORGANIC), S Routine 06/07/2024 8:02 AM BUDGET MANAGER Chronic Kidney Disease (CKD), Stage 3b Glomerular Filtration Rate (GFR) 30 To 44 (HCC) VITAMIN D, IMMUNOASSAY, TOTAL, S Routine 06/07/2024 8:02 AM BUDGET MANAGER Chronic Kidney Disease (CKD), Stage 3b Glomerular Filtration Rate (GFR) 30 To 44 (HCC) PARATHYROID HORMONE (PTH), S Routine 06/07/2024 8:02 AM BUDGET MANAGER Chronic Kidney Disease (CKD), Stage 3b Glomerular Filtration Rate (GFR) 30 To 44 (HCC) CBC WITH DIFFERENTIAL, B Routine 06/07/2024 8:02 AM BUDGET MANAGER Chronic Kidney Disease (CKD), Stage 3b Glomerular Filtration Rate (GFR) 30 To 44 (HCC) LIPID PANEL, S Routine 06/07/2024 8:02 AM BUDGET MANAGER Diabetes Mellitus Type 2 With Diabetic Polyneuropathy (HCC) BASIC METABOLIC PANEL, S/P Routine 06/07/2024 8:02 AM BUDGET MANAGER Chronic Kidney Disease (CKD), Stage 3b Glomerular Filtration Rate (GFR) 30 To 44 (HCC) HEMOGLOBIN A1C, B Routine 06/07/2024 8:0 2 AM BUDGET MANAGER Diabetes Mellitus Type 2 With Diabetic Polyneuropathy (HCC) ALBUMIN, RANDOM, U Routine 06/07/2024 8: 00 AM BUDGET MANAGER Diabetes Mellitus Type 2 With Diabetic Polyneuropathy (HCC) BI BREAST SCREENING BILATERAL WITH TOMOSYNTHESIS RAD - Routine (most inpatients and all outpatients) 03/26/2023 1:09 PM CDT Screening Mammogram Breast Cancer from Last 3 Months or Most Recently Relevant to Health Maintenance Results * (ABNORMAL) CBC with Differential, Blood (06/20/2024 10:42 AM BUDGET MANAGER) Only the most recent of2 resultswithin the time period is included. Hemoglobin 12.4 11.6 - 15.0 g/dL 06/20/2024 11:12 AM BUDGET MANAGER FB60 Hematocrit 37.1 35.5 - 44.9 % 06/20/2024 11:12 AM BUDGET MANAGER FB60 Erythrocytes 4.09 3.92 - 5.13 x10(12)/L 06/20/2024 11:12 AM BUDGET MANAGER FB60 MCV 90.7 78.2 - 97.9 fL 06/20/2024 11:12 AM BUDGET MANAGER FB60 RBC Distrib Width 12.7 12.2 - 16.1 % 06/20/2024 11:12 AM BUDGET MANAGER FB60 Platelet Count 330 157 - 371 x10(9)/L 06/20/2024 11:12 AM BUDGET MANAGER FB60 Leukocytes 17.7(H) 3.4 - 9.6 x10(9)/L 06/20/2024 11:12 AM BUDGET MANAGER FB60 Neutrophils 13.64(H) 1.56 - 6.45 x10(9)/L 06/20/2024 11:12 AM BUDGET MANAGER FB60 Lymphocytes 2.28 0.95 - 3.07 x10(9)/L 06/20/2024 11:12 AM BUDGET MANAGER FB60 Monocytes 1.54(H) 0.26 - 0.81 x10(9)/L 06/20/2024 11:12 AM BUDGET MANAGER FB60 Eosinophils 0.17 0.03 - 0.48 x10(9)/L 06/20/2024 11:12 AM BUDGET MANAGER FB60 Basophils 0.05 0.01 - 0.08 x10(9)/L 06/20/2024 11:12 AM BUDGET MANAGER FB60 Blood (Blood, Venous) 06/20/2024 10:42 AM BUDGET MANAGER 06/20/2024 10:42 AM BUDGET MANAGER Laly LAKHANI, P.A.-C. LAB BLOOD ADD-ON Final Result [facility] [address] [facility] [place] [address], [facility] FB60 [facility] in [place] [address] [place] [address] * (ABNORMAL) CRP (C-Reactive Protein) (06/20/2024 10:42 AM BUDGET MANAGER) C-Reactive Protein (CRP), P 56.8(H) <5.0 mg/L 06/20/2024 1:58 PM BUDGET MANAGER OWAT Blood (Blood, Venous) 06/20/2024 10:42 AM BUDGET MANAGER 06/20/2024 1:22 PM BUDGET MANAGER us Laly LAKHANI, PKavyaA.-C. LAB BLOOD ADD-ON Final Result [facility] [address] [place] [address], [place] OWAT [facility] in [place] [address] [place] [address] * (ABNORMAL) Basic Metabolic Panel (06/14/2024 9:31 AM BUDGET MANAGER) Only the most recent of2 resultswithin the time period is included. Potassium, P 4.7 3.6 - 5.2 mmol/L 06/14/2024 2:11 PM BUDGET MANAGER OWAT Sodium, P 140 135 - 145 mmol/L 06/14/2024 2:11 PM BUDGET MANAGER OWAT Chloride, P 98 98 - 107 mmol/L 06/14/2024 2:11 PM BUDGET MANAGER OWAT Bicarbonate, P 30(H) 22 - 29 mmol/L 06/14/2024 2:11 PM BUDGET MANAGER OWAT Anion Gap, P 12 7 - 15 06/14/2024 2:11 PM BUDGET MANAGER OWAT BUN (Blood Urea Nitrogen), P 24(H) 6 - 21 mg/dL 06/14/2024 2:11 PM BUDGET MANAGER OWAT Creatinine 2.02(H) 0.59 - 1.04 mg/dL 06/14/2024 2:11 PM BUDGET MANAGER OWAT Estimated GFR (eGFR) 26(L) >=60 mL/min/BSA 06/14/2024 2:11 PM BUDGET MANAGER OWAT Comment: Estimated GFR calculated using the 2020 CKD_EPI creatinine equation. Calcium, Total, P 9.6 8.8 - 10.2 mg/dL 06/14/2024 2:11 PM BUDGET MANAGER OWAT Glucose, P 126 70 - 140 mg/dL 06/14/2024 2:11 PM BUDGET MANAGER OWAT Blood (Blood, Venous) 06/14/2024 9:31 AM BUDGET MANAGER 06/14/2024 1:06 PM BUDGET MANAGER us Laly LAKHANI, P.A.-C. LAB BLOOD ADD-ON Final Result [facility] [address] [place] [address], [facility] in [place] [address], [place] [address] * Albumin, Random, Urine (06/14/2024 9:30 AM BUDGET MANAGER) Only the most recent of2 resultswithin the time period is included. Microalbumin <12.0 mg/L 06/14/2024 2:02 PM BUDGET MANAGER OWAT Comment:If clinically indica jim, contact the lab for additional testing. Creatinine 56 mg/dL 06/14/2024 2:02 PM BUDGET MANAGER OWAT Albumin/Creatinine Ratio <21 <25 mg/g 06/14/2024 2:02 PM BUDGET MANAGER OWAT Comment: This ratio may not correspond with the reference range because one or both of the values used to calculate the ratio was above or below the quantification limits. Urine (Urine, Midstream) 06/14/2024 9:30 AM BUDGET MANAGER 06/14/2024 1:05 PM BUDGET MANAGER us Laly LAKHANI, P.A.-C. LAB URINE ORDERAB LES Final Result Performing Organization Address [facility] Co de Phone Number [facility] [facility] [address] [place] [address], [facility] OWAT [facility] in [place] [address] [place] [id number] * (ABNORMAL) Lipid Panel (06/07/2024 8:02 AM BUDGET MANAGER) Triglycerides 246(H) mg/dL 06/07/2024 4:47 PM BUDGET MANAGER OWAT Comment: ----REFERENCE VALUE---- Normal: <150 mg/dL Borderline High: 150-199 mg/dL High: 200-499 mg/dL Very High: > or =500 mg/dL Cholesterol, Total 326(H) mg/dL 2024 4:47 PM BUDGET MANAGER OWAT Comment: ----REFERENCE VALUE---- Desirable: < 200 mg/dL Borderline High: 200 - 239 mg/dL High: > or = 240 mg/dL Cholesterol, LDL, Calculated 232(H) mg/dL 06/07/2024 4:47 PM BUDGET MANAGER OWAT Comment: The markedly elevated LDL level is suggestive of a genetic condition such as familial hypercholesterolemia (FH) or familial defective apolipoprotein B-100 (FDB). Family studies including biochemical testing for lipids (total cholesterol, triglycerides, LDL cholesterol and HDL cholesterol) are recommended. Genetic testing for hypercholesterolemia is available by ordering the Hypercholesterolemia Gene Panel (Test ID HCHLG). ----REFERENCE VALUE---- Desirable: <100 mg/dL Above Desirable: 100-129 mg/dL Borderline High: 130-159 mg/dL High: 160-189 mg/dL Very High: >=190 mg/dL ----ADDITIONAL INFORMATION---- LDL cholesterol calculated using the [place]/NIH equation. Cholesterol, HDL 44(L) >=50 mg/dL 06/07/2024 4:47 PM BUDGET MANAGER OWAT Cholesterol, Non-HDL, Calculated 282(H) mg/dL 06/07/2024 4:47 PM BUDGET MANAGER OWAT Comment: ----REFERENCE VALUE---- Desirable: <130 mg/dL Above Desirable: 130-159 mg/dL Borderline High: 160-189 mg/dL High: 190-219 mg/dL Very High: > or =220 mg/dL Fasting (8 HR or more) Yes 8:02 AM BUDGET MANAGER OWAT Blood (Blood, Venous) 06/07/2024 8:02 AM BUDGET MANAGER 06/07/2024 12:58 PM BUDGET MANAGER Laly LAKHANI, P.A.-C. LAB BLOOD ADD-ON Final Result [facility] [address] [place] [address], [place] OWAT [facility] in [place] [address] [place] [address] * Vitamin D, Immunoassay, Total, Serum (06/07/2024 8:02 AM BUDGET MANAGER) Vitamin D, Immunoassay, Total, S 40 20 - 80 ng/mL 06/07/2024 8:05 PM BUDGET MANAGER MKTO Comment: Optimum levels within the healthy population are 20-50, patients with bone disease may benefit from high levels within this range Blood (Blood, Venous) 06/07/2024 8:02 AM BUDGET MANAGER 06/07/2024 7:21 PM BUDGET MANAGER Laly LAKHANI, P.A.-C. LAB BLOOD ADD-ON Final Result Performing Organization Address City/[facility] Co de Phone Number [facility] [address] [place] [address], [facility] in [place] [address] [place] [phone] * Phosphorus Inorganic (06/07/2024 8:02 AM BUDGET MANAGER) Phosphorus (Inorganic), P 3.3 2.5 - 4.5 mg/dL 06/07/2024 4:00 PM BUDGET MANAGER AUST Blood (Blood, Venous) 06/07/2024 8:02 AM BUDGET MANAGER 06/07/2024 3:36 PM BUDGET MANAGER Laly LAKHANI, P.A.-C. LAB BLOOD ADD-ON Final Result Performing Organization Address [facility] Co de Phone Number [facility] [address] [place] [address], [facility] [address] [place] [address] * (ABNORMAL) Parathyroid Hormone (PTH) (06/07/2024 8:02 AM BUDGET MANAGER) Parathyroid Hormone (PTH), S 103(H) 15 - 65 pg/mL 06/07/2024 3:55 PM BUDGET MANAGER AUST Comment: Biotin has been identified by the civil engineer's aide as a potential interfering substance. Higher concentrations of biotin may be found in multivitamins, hair/nail supplements, and workout supplements. If the result does not match clinical observations, repeat testing after patient refrains from the use of supplements for at least 12 hours. Blood (Blood, Venous) 06/07/2024 8:02 AM BUDGET MANAGER 06/07/2024 3:36 PM BUDGET MANAGER Laly LAKHANI P.A.-C. LAB BLOOD ADD-ON Final Result Performing Organization Address City/[facility]/ZIP Co de Phone Number [facility] [address] [place] [address], [facility] AUST [facility] - [facility] [address] [place] [address] * (ABNORMAL) Hemoglobin A1c (06/07/2024 8:02 AM BUDGET MANAGER) Hemoglobin A1c, B 5.9(H) 4.2 - 5.6 % 06/07/2024 3:15 PM BUDGET MANAGER OW Comment: Hemoglobin A1c values of 5.7-6.4 percent indicate an increased risk for developing diabetes mellitus. In diabetic patients, HbA1c goals should be discussed with healthcare provider. Blood (Blood, Venous) 06/07/2024 8:02 AM BUDGET MANAGER 06/07/2024 12:58 PM BUDGET MANAGER us Laly LAKHANI, P.A.-C. LAB BLOOD ADD-ON Final Result Performing Organization Address City/[facility]/ZIP Co de Phone Number [facility] [address] [place] [address], [place] OWAT [facility] [place] [address] [place] [address] * BI Breast Screening Bilateral with Tomosynthesis (03/26/2023 1:09 PM CDT) Anatomical Region Laterality Modality Breast, Breast Imaging RST L OS, Breast Imaging ARZ LOS, Breast Imaging FLA LOS Bilateral Mammography 03/30/2023 12:0 1 PM CDT Impressions 03/30/2023 12:02 PM CDT Negative. RECOMMENDATION: Annual Screening Mammogram ASSESSMENT: BI-RADS: 1: Negative. Narrative 03/30/2023 12:02 PM CDT EXAM: BI BREAST SCREENING BILATERAL WITH TOMOSYNTHESIS Current study was evaluated with a Computer Aided Detection (CAD) system. INDICATION: Screening mammogram. COMPARISON: Prior exam(s) were available and reviewed for comparison. DENSITY: b. There are scattered areas of fibroglandular density. FINDINGS: No mammographic findings of malignancy. Procedure Note Walter [...] Screening Mammogram ASSESSMENT: BI-RADS: 1: Negative. Laly LAKHANI PKavyaAYadira. IMG BI PROCEDURES Final Result from Last 3 Months or Most Recently Relevant to Health Maintenance Insurance [facility] MEDICARE Care Teams Electrotype Finisher Relationship Specialty Start Date End Date Laly Dickey MPAS, P.A.-C. [address] [facility] [place] [phone] PCP - General Internal Medicine 07/28/22
--- OUTSIDE RECORDS SUMMARY | 2024-06-20 16:35 | XMS_ITS | Encounter Summary ---
Author Organization [facility] Address [address] [place] [address] Care Team Providers Care Master Dyer Name Role Phone Laly Dickey P.A.-C. Primary Care Pro vider Reason for Visit * Reason Onset Date Comments Communication 06/20/2024 Encounter Details Date Type Department Care Team (Late st Contact Info) Description 06/20/2024 Clinical Communication Department of Community Internal Medicine in [place], [place] [address] [facility] [address] [facility] [place] [phone] Laly Dickey MPAS P.A.-C. [address] [place] [phone] Communication Social History Tobacco Use Types Packs/Day Years Used Date Smoking Tobacco: Former Cigarettes 2 30 0 11/13/1975 - 11/12/2005 Passive Smoke Exposure: Past Smokeless Tobacco: Never Alcohol Use Standard Drinks/Week Comments Not Currently 0 (1 standard drink = 0.6 oz pur e alcohol) [facility] Utilities Answer Date Recorded In the past 12 months has e electric, gas, oil, or water company [...] your living situation today? I have a [facility] place to live 02/14/2024 Comments No Sex and Gender Information Value Date Recorded Sex Assigned at Female 03/19/2023 10:10 AM CDT Legal Sex Female 1:31 PM TECHNICAL INTERNSHIP Gender Identity Female 03/19/2023 10:10 AM CDT Sexual Orientation Not on file documented as of this encounter Miscellaneous Notes * Telephone Encounter - Laly Dickey MPAS, P.A.-C. - 06/20/2024 4:32 PM CST I did call patient to discuss her results. She was already in the ED when I called. NICAL INTERNSHIP documented in this encounter Plan of Treatment Upcoming Encounters Date Type Department Care Team (Latest Contact Info) Description 06/21/2024 9:00 AM TECHNICAL INTERNSHIP Appointment Department of Radiology in [place], [place] [address] [phone] Laly Dickey MPAS, P.AKavya-C. [address] [place] [phone] 07/05/2024 9:30 AM TECHNICAL INTERNSHIP Lab Department of Laboratory Medicine and Pathology, [facility] in [place], [place] [address] [place] [phone] Agustin Granda M.D., Ph.D. [address] [place] [phone] 07/05/2024 1:30 PM TECHNICAL INTERNSHIP Comprehensive Visit Division of Trauma Critical Care and General Surgery in [place], [place] [address] [place] [phone] Agustin Granda M.D., Ph.D. [address] [place] [phone] 07/05/2024 3:00 PM TECHNICAL INTERNSHIP Appointment Department of Neurology in [place], [place] [address] [place] [phone] Agustin Granda M.D., Ph.D. [address] [place] [phone] Discharge Disposition: Home or Self Care 07/06/2024 7:24 PM TECHNICAL INTERNSHIP Hospital Encounter Post Anesthesia Care Unit in [address] [phone] Agustin Granda M.D., Ph.D. [address] [place] [phone] 07/06/2024 7:24 PM TECHNICAL INTERNSHIP - 07/06/2024 10:14 PM TECHNICAL INTERNSHIP Surgery RST ROMB MAIN OR [address] [place] [phone] Agustin Granda M.D., Ph.D. [address] [place] [phone] HSE SPECIALIST shunt placement 07/20/2024 10:00 AM TECHNICAL INTERNSHIP Office Visit Department of Community Internal Medicine in [address] [phone] Laly Dickey MPAS, P.A.-C. [address] [place] [phone] 07/28/2024 8:30 AM TECHNICAL INTERNSHIP Appointment Department of Radiology in [address] [phone] Laly Dickey MPAS, P.A.-C. [address] [place] [phone] Discharge Disposition: Home or Self Care Scheduled Procedures Name Priority Associated Diagnoses Date/Ti me IMPLANTATION SHUNT VENTRICULAR PERITONEAL Hydrocephalus Normal Pressure (HCC) 07/06/2024 7:24 PM TECHNICAL INTERNSHIP ARTHROPLASTY TOTAL REVERSE SHOULDER Fracture 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 documented as of this encounter Visit Diagnoses Not on filedocumented in this encounter Additional Health Concerns Assessment Noted Time PHQ-9 Depression Total Score: 5 02/14/20 24 9:00 AM CDT documented as of this encounter Care Teams Master Dyer Relationship Specialty Start Date End Date Laly Dickey MPAS, P.A.-C. [address] [place] [phone] PCP - General Internal Medicine 07/28/22 documented as of this encounter
--- OUTSIDE RECORDS SUMMARY | 2024-06-20 16:35 | XMS_ITS | Encounter Summary ---
Author Organization [facility] Address [address] [place] [address] Care Team Providers Care Mold Stamper Name Role Phone Laly Schmidt P.A.-CKavya Primary Care Pro vider Reason for Referral * Outpatient (Routine) - Authorized Specialty Diagnoses / Procedures Referred By Contac t Referred To Contact Diagnoses Parotitis Procedures US Parotid Submandibular Glands Laly Schmidt MPAS, P.A.-CKavya [address] [facility] [place] [place] [address] Phone: tel: fax: [facility] Region Referral ID Status Reason Start Date Expiration Date V isits Requested Visits Authorized [id number] Authorized 06/20/2024 09/20/2025 1 1 F PSYCHOLOGIST * Outpatient (Routine) - Authorized Specialty Diagnoses / Procedures Referred By Contac t Referred To Contact [facility] Laly Schmidt MPAS, P.A.-C. [address] [place] [address] Phone: tel: fax: [facility] Region Referral ID Status Reason Start Date Expiration Date V isits Requested Visits Authorized [id number] Authorized 06/20/2024 12/20/2025 1 1 F PSYCHOLOGIST * Outpatient (Routine) - Authorized Specialty Diagnoses / Procedures Referred By Nemo morales Referred To Contact [facility] Laly Schmidt MPAS PKavyaA.-CKavya [address] [place] [address] Phone: tel: fax: [facility] Region Referral ID Status Reason Start Date Expiration Date V isits Requested Visits Authorized [id number] Authorized 06/20/2024 12/20/2025 1 1 F PSYCHOLOGIST Reason for Visit * Reason Comments Pre-op Exam Brain surgery 07/06/19 25 down in [place] * Outpatient (Routine) - Closed Specialty Diagnoses / Procedures Referred By Nemo morales Referred To Contact [facility] Internal Medicine Laly Schmidt MPAS, P.A.-CKavya [address] [place] [address] Phone: tel: fax: [facility] Region Referral ID Status Reason Start Date Expiration Date Visits Re quested Visits Authorized [id number] Closed 06/14/2024 12/14/2025 1 1 Encounter Details Date Type Department Care Team (Late st Contact Info) Description 06/20/2024 9:20 AM CHIEF PSYCHOLOGIST Office Visit Department of [facility] in [place], [place] [address] [place] [phone] Laly Schmidt MPAS, PKavyaAKavya-CKavya [address] [place] [phone] Parotitis (Primary Dx); Preanesthetic Medical Exam; Pain Shoulder Right; Pain Low Back Chronic; Chronic Kidney Disease Stage 4 Glomerular Filtration Rate 15-29 (HCC); Migraine Headache; History Of Falling; Insomnia; 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 I have a [facility] place to live 02/14/2024 Comments No Sex and Gender Information Value Date Recorded Sex Assigned at Female 03/19/2023 10:10 AM CDT Legal Sex Female 1:31 PM CHIEF PSYCHOLOGIST Gender Identity Female 03/19/2023 10:10 AM CDT Sexual Orientation Not on file documented as of this encounter Last Filed Vital Signs Vital Sign Reading Time Taken Comments Blood Pressure 101/63 06/20/2024 9:12 AM CHIEF PSYCHOLOGIST Pulse 94 06/20/2024 9:12 AM CHIEF PSYCHOLOGIST Temperature 36 C (96.8 F) 06/20/2024 9:07 AM CHIEF PSYCHOLOGIST Respiratory Rate 20 06/20/2024 9:07 AM CHIEF PSYCHOLOGIST Oxygen Saturation 98% 06/20/2024 9:07 AM CHIEF PSYCHOLOGIST Inhaled Oxygen Concentration - - Weight 105 kg (232 lb 9.4 oz) 06/20/2024 9:07 AM CHIEF PSYCHOLOGIST Height 171 cm (5' 7.32) 06/20/2024 9:07 AM CHIEF PSYCHOLOGIST Body Mass Index 36.08 06/20/2024 9:07 AM CHIEF PSYCHOLOGIST documented in this encounter H&P Notes * Laly Schmitd, KAR, P.A.-C. - 06/20/2024 9:20 AM CST PREANESTHETIC MEDICAL EVALUATION Procedure: BOLT MAKER Shunt Placement Indication: Normal Pressure Hydrocephalus Date of Surgery: 07/06/2024 Requesting Provider: Dr. Granda SUBJECTIVE HISTORY OF PRESENT ILLNESS Anna Ortega is a 69 y.o. female seen in consultation for a preanesthetic medical evaluation.She has a PMHx of diabetes mellitus type 2, diastolic heart failure, hypertension, chronic kidney disease stage 3b, and obesity. Patient currently denies Shortness of breath, Wheezing or coughing, Difficulty breathing when lyingflat, Waking up at night feeling short of breath, Edema - abdominal bloating, and Edema - lower extremities Procedure cardiac risk: Intermediate Risk (cardiac risk <5%): CEA, head/neck surgery, intraabdominal or intrathoracic surgery, orthopedic surgery, prostate surgery Functional status: Functional Class III: Able to perform 2-5 METS RCRI estimated risk of xavier-operative cardiac , non-fatal IA, or non-fatal cardiac arrest: History of heart failure Diabetes requiring perioperative insulin use Chronic kidney disease RCRI risk:>2 Predictors (>10% risk of major cardiac event) In addition to preoperative exam, she would like to discuss swelling on right side of her face in front of her ear it started suddenly yesterday. This area is tender to the touch and is warm and extends towards her jaw. She denies fever. She denies dysphagia. She endorses symptoms of cough, sore throat, dizziness, headache, and malaise that started yesterday with facial swelling. She has chronic dizziness but dizziness seems to be worse today with the above associated symptoms. PREOPERATIVE CONSIDERATIONS Anticoagulant: aspirin, plavix, warfarin, DOAC: She takes aspirin 81 mg daily. Asthma or COPD: This is managed on Spiriva and albuterol/DuoNebs PRN. Diabetes: A1C of 5.9% May 2024 Congestive heart failure: Euvolemic on torsemide 80 mg daily. Chronic kidney disease: Stage 4 CKD. PAST MEDICAL HISTORY Medical History[1] PAST SURGICAL HISTORY Surgical History[2] OBJECTIVE PHYSICAL EXAM Vitals: BP 101/63 (BP Location: Right arm, Patient Position: Sitting, Cuff Size: Large) Pulse 94 Temp 36 ??C (Temporal) Resp 20 Ht 171 cm Wt 105 kg SpO2 98% BMI 36.08 kg/m?? Constitutional Appearance: She is ill-appearing. HENT Head: Normocephalic and atraumatic. Jaw: Tenderness and swelling present. Salivary Glands: Right salivary gland is diffusely enlarged and tender. Comments: Right parotid gland swelling and tenderness extending towards mandible. Warm to the touch. No pus drainage from Ena Duct. Right Ear: Tympanic membrane normal. Left Ear: Tympanic membrane normal. Mouth/Throat: Mouth: Mucous membranes are moist. Pharynx: Oropharynx is clear. No oropharyngeal exudate or posterior oropharyngeal erythema. Eyes Extraocular Movements: Extraocular movements intact. Conjunctiva/sclera: Conjunctivae normal. Pupils: Pupils are equal, round, and reactive to light. Neck Vascular: No carotid bruit. Cardiovascular Rate and Rhythm: Normal rate and regular rhythm. Heart sounds: Normal heart sounds. No murmur heard. No gallop. Pulmonary Effort: Pulmonary effort is normal. No respiratory distress. Breath sounds: Normal breath sounds. No wheezing, rhonchi or rales. Abdominal General: Bowel sounds are normal. There is no distension. Palpations: Abdomen is soft. Tenderness: There is no abdominal tenderness. There is no guarding or rebound. Musculoskeletal General: No tenderness or deformity. Normal range of motion. Cervical back: Neck supple. Right lower leg: No edema. Left lower leg: No edema. Skin General: Skin is warm and dry. Neurological General: No focal deficit present. Mental Status: She is alert and oriented to person, place, and time. Sensory: No sensory deficit. Motor: No weakness. Deep Tendon Reflexes: Reflexes normal. Psychiatric Mood and Affect: Mood normal. Behavior: Behavior normal. Thought Content: Thought content normal. LABORATORY STUDIES/EKG/Radiology: Lab Results Component Value Date WBC 9.7 (H) 06/07/2024 HGB 12.9 06/07/2024 HCT 38.5 06/07/2024 MCV 91.4 06/07/2024 PLT 347 06/07/2024 Lab Results Component Value Date NA 140 06/14/2024 Lab Results Component Value Date KPLASMA 4.7 06/14/2024 Lab Results Component Value Date CREATININE 2.02 (H) 06/14/2024 Lab Results Component Value Date GLUCOSE 126 06/14/2024 ASSESSMENT / PLAN ASSESSMENT / PLAN #1 Preanesthetic Medical Exam Anna Ortega is considered a moderate risk patient undergoing a moderate risk procedure. She is not able to obtain 4 METS of activity at baseline but is not having any new concerning symptoms of chest pain or shortness of breath. She is medically optimized for upcoming procedure and will proceed as planned. No medical contraindication to anticipated surgery. #2 Parotitis She has right parotid gland swelling on exam. She has associated symptoms that could represent a viral etiology such as mumps. We will swab for mumps virus with buccal swab today. I also feel this could be bacterial and worry about extend of infection. She is afebrile with acceptable vitals signs although she is on the border of tachycardia and hypotension. We discussed referral to ED versus performing initial workup in clinic with CBC/CRP. She would like to complete initial testing in clinic today. I will plan to call her with these results. She understands the importance of presenting to the ER if she has worsening of her symptoms. 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 We discussed the importance of discontinuing all NSAID medications. She is in agreement to discontinue ibuprofen completely. I fear if we do not have adequate pain control she will resume NSAID medications and kidney function will continue todecline. We had a long discussion about this and have decided to increase Tramadol from 50 mg dailyto 50 mg BID as she does not find Tylenol effective. Side effects discussed. We will plan to followup in 1 month. New CSSP below. We will repeat kidney function in two weeks. Gabapentin has been dose adjusted from 300 mg TID to 300 mg BID given current renal function. CONTROLLED SUBSTANCE PRESCRIBING PLAN Responsible provider: Laly Schmidt MPAS, P.A.-C. Naloxone not indicated. 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 - traMADoL (Ultram) 50 mg tablet; Take 1 tablet (50 mg total) by mouth 2 (two) times a day as needed for severe pain or score 7-10 of 10 Indications: Chronic Pain/Nonacute Pain., Starting 06/20/2024, NormalDose increase from 50 mg daily to 50 mg BID. - Basic Metabolic Panel; Future; Expected date: 07/04/2024 #6 Migraine Headache #7 Insomnia #8 History Of Falling We reviewed indication for amitriptyline, currently taking 150 mg at bedtime. Reduce to 100 mg at bedtime for management of insomnia and migraine prophylaxis in attempt to alleviate side effects of dizziness/drowsiness/fall risk. Other orders - [facility] office visit (clinic) - [facility] office visit (clinic); Future; Expected date: 07/04/2024 - amitriptyline (ElaviL) 50 mg tablet; Take 2 tablets (100 mg total) by mouth at bedtime., StartingT06/20/2024, No Print - gabapentin (Neurontin) 300 mg capsule; Take 1 capsule (300 mg total) by mouth 2 (two) times a day., Starting Wed06/20/2024, Until Wed06/15/2025, No Print - [facility] office visit (clinic); Future; Expected date: 07/21/2024 Total time spent: 50 minutes FOLLOW UP: 1 month KAR Smith, P.A.-C. Addendum: White blood cell count and CRP returned elevated. Plan to start outpatient Augmentin at a reduced dose for kidney function and complete parotid ultrasound tomorrow morning in [place] at 9 AM to assess for abscess. I called patient to discuss results and recommended plan. She informs me she did present to the ED this afternoon and is receiving care there now. [1] Past Medical History: Diagnosis Date Chronic Obstructive Pulmonary Disease (HCC) Diabetes Mellitus NOS Heart Failure NOS Hepatitis Hyperlipidemia Hypertension NOS Other Injury Of Unspecified Body Region [2] Past Surgical History: Procedure Laterality Date APPENDECTOMY SECTION DILATATION AND CURETTAGE JOINT REPLACEMENT JOINT REPLACEMENT OOPHORECTOMY, PARTIAL OR TOTAL, UNILATERAL OR BILATERAL;.. PARATHYROIDECTOMY SHOULDER SURGERY Left SHOULDER SURGERY Right THYROID SURGERY F PSYCHOLOGIST F PSYCHOLOGIST F PSYCHOLOGIST documented in this encounter Miscellaneous Notes * Addendum Note - Laly Schmidt MPAS, P.A.-C. - 06/20/2024 9:20 AM CHIEF PSYCHOLOGIST Addended by: LALY SCHMIDT on: 06/20/2024 03:04 PM Modules accepted: Orders F PSYCHOLOGIST documented in this encounter Plan of Treatment Upcoming Encounters Date Type Department Care Team (Latest Contact Info) Description 06/21/2024 9:00 AM CHIEF PSYCHOLOGIST Appointment Department of Radiology in [place], [place] [address] [place] [phone] Llay Schmidt MPAS, P.A.-C. [address] [place] [phone] 07/05/2024 9:30 AM CHIEF PSYCHOLOGIST Lab Department of Laboratory Medicine and Pathology, [facility] in [place], [place] [address] [place] [phone] Agustin Granda M.D., Ph.D. [address] [place] [phone] 07/05/2024 1:30 PM CHIEF PSYCHOLOGIST Comprehensive Visit Division of Trauma Critical Care and General Surgery in [place], [place] [address] [place] [phone] Agustin Granda M.D., Ph.D. [address] [place] [phone] 07/05/2024 3:00 PM CHIEF PSYCHOLOGIST Appointment Department of Neurology in [place], [place] [address] [place] [phone] Agustin Granda M.D., Ph.D. [address] [place] [phone] Discharge Disposition: Home or Self Care 07/06/2024 7:24 PM CHIEF PSYCHOLOGIST Hospital Encounter Post Anesthesia Care Unit in [place], [place] [address] [place] [phone] Agustin Granda M.D., Ph.D. [address] [place] [phone] 07/06/2024 7:24 PM CHIEF PSYCHOLOGIST - 07/06/2024 10:14 PM CHIEF PSYCHOLOGIST Surgery [facility]IN OR [address] [place] [phone] Agustin Granda M.D., Ph.D. [address] [place] [phone] BOLT MAKER shunt placement 07/20/2024 10:00 AM CHIEF PSYCHOLOGIST Office Visit Department of [facility] in [place], [place] [address] [place] [phone] Laly Schmidt MPAS, P.A.-C. [address] [place] [phone] 07/28/2024 8:30 AM CHIEF PSYCHOLOGIST Appointment Department of Radiology in [place], [place] [address] [place] [phone] Laly Schmidt MPAS, P.A.-C. [address] [place] [phone] Discharge Disposition: Home or Self Care Scheduled Orders Name Type Priority Associated Diagnoses Order Schedule Mumps Virus PCR, Buccal Microbiology Routine Parotitis Expected: 06/20/2024, Expires: 09/18/2025 Basic Metabolic Panel Lab Routine Chronic Kidney Disease Stage 4 Glomerular Filtration Rate 15-29 (HCC) Expected: 07/04/2024, Expires: 09/18/2025 US Parotid Submandibular Glands Imaging RAD - Routine (most inpatients and all outpatients) Parotitis Expected: 06/20/2024, Expires: 09/18/2025 Scheduled Procedures Name Priority Associated Diagnoses Date/Ti me IMPLANTATION SHUNT VENTRICULAR PERITONEAL Hydrocephalus Normal Pressure (HCC) 07/06/2024 7:24 PM CHIEF PSYCHOLOGIST ARTHROPLASTY TOTAL REVERSE SHOULDER Fracture 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 Scheduled Referrals Name Type Priority Associated Diagnoses Orde r Schedule [facility] office visit (clinic) Outpatient Referral Routine Expected: 07/04/2024, Expires: 09/18/2025 [facility] office visit (clinic) Outpatient Referral Routine Expected: 07/21/2024, Expires: 09/18/2025 documented as of this encounter Results * (ABNORMAL) CRP (C-Reactive Protein) (06/20/2024 10:42 AM CHIEF PSYCHOLOGIST) Pathologist [facility] C-Reactive Protein (CRP), P 56.8(H) <5.0 mg/L 06/20/2024 1:58 PM CHIEF PSYCHOLOGIST [facility] Blood (Blood, Venous) 06/20/2024 10:42 AM CHIEF PSYCHOLOGIST 06/20/2024 1:22 PM CHIEF PSYCHOLOGIST us Laly LAKHANI, P.A.-C. LAB BLOOD ADD-ON Final Result [facility] [address], [place] [address], [facility] in [place] [address] [place] [address] * (ABNORMAL) CBC with Differential, Blood (06/20/2024 10:42 AM CHIEF PSYCHOLOGIST) Hemoglobin 12.4 11.6 - 15.0 g/dL 06/20/2024 11:12 AM CHIEF PSYCHOLOGIST FB60 Hematocrit 37.1 35.5 - 44.9 % 06/20/2024 11:12 AM CHIEF PSYCHOLOGIST FB60 Erythrocytes 4.09 3.92 - 5.13 x10(12)/L 06/20/2024 11:12 AM CHIEF PSYCHOLOGIST FB60 MCV 90.7 78.2 - 97.9 fL 06/20/2024 11:12 AM CHIEF PSYCHOLOGIST FB60 RBC Distrib Width 12.7 12.2 - 16.1 % 06/20/2024 11:12 AM CHIEF PSYCHOLOGIST FB60 Platelet Count 330 157 - 371 x10(9)/L 06/20/2024 11:12 AM CHIEF PSYCHOLOGIST FB60 Leukocytes 17.7(H) 3.4 - 9.6 x10(9)/L 06/20/2024 11:12 AM CHIEF PSYCHOLOGIST FB60 Neutrophils 13.64(H) 1.56 - 6.45 x10(9)/L 06/20/2024 11:12 AM CHIEF PSYCHOLOGIST FB60 Lymphocytes 2.28 0.95 - 3.07 x10(9)/L 06/20/2024 11:12 AM CHIEF PSYCHOLOGIST FB60 Monocytes 1.54(H) 0.26 - 0.81 x10(9)/L 06/20/2024 11:12 AM CHIEF PSYCHOLOGIST FB60 Eosinophils 0.17 0.03 - 0.48 x10(9)/L 06/20/2024 11:12 AM CHIEF PSYCHOLOGIST FB60 Basophils 0.05 0.01 - 0.08 x10(9)/L 06/20/2024 11:12 AM CHIEF PSYCHOLOGIST FB60 Blood (Blood, Venous) 06/20/2024 10:42 AM CHIEF PSYCHOLOGIST 06/20/2024 10:42 AM CHIEF PSYCHOLOGIST us Laly LAKHANI, P.A.-C. 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 [address] [place] [phone] PCP - General Internal Medicine 07/28/22 documented as of this encounter
--- OUTSIDE RECORDS SUMMARY | 2024-06-20 16:35 | XMS_ITS | Encounter Summary ---
Author Organization [facility] Address [address] [place] [address] Care Team Providers Care Mincing Machine Operator Name Role Phone Laly Dickey P.A.-C. Primary Care Pro vider Encounter Details Date Type Department Care Team (Latest Contact Info) Description 06/14/2024 9:23 AM DELPHI PROGRAMMER - 06/14/2024 11:59 PM [facility] Hospital Encounter Department of Laboratory Medicine in [place], [place] [address] [place] [phone] Laly Dickey MPAS, P.A.-C. 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) Discharge Disposition: Home or Self Care Social History Tobacco Use Types Packs/Day Years Used Date Smoking Tobacco: Former Cigarettes 2 30 0 11/13/1975 - 11/12/2005 Passive Smoke Exposure: Past Smokeless Tobacco: Never Alcohol Use Standard Drinks/Week Comments Not Currently 0 (1 standard drink = 0.6 oz pur e alcohol) [facility] Utilities Answer Date Recorded In the past 12 months has e iNeed, gas, oil, or water company threatened to [...] a [facility] place to live 02/14/2024 Comments No Sex and Gender Information Value Date Recorded Sex Assigned at Female 03/19/2023 10:10 AM CDT Legal Sex Female 1:31 PM DELPHI PROGRAMMER Gender Identity Female 03/19/2023 10:10 AM CDT [...] breakfast and dinner. 180 capsule 3 08/30/2023 AppNexusTouch Verio Reflect Meter misc APPLY 1 EACH TOPICALLY 1 each 03/07/2024 AppNexusTouch Verio test strips 3 test See Admin [...] (Latest Contact Info) Description 06/21/2024 9:00 AM DELPHI PROGRAMMER Appointment Department of Radiology in [place], [place] [address] [place] [address] Laly Dickey MPAS, P.A.-C. 300 [facility] JOSENATASHA BERRIOS [phone] 07/05/2024 9:30 AM DELPHI PROGRAMMER Lab Department of Laboratory Medicine and Pathology, [facility], in [place], [place] [address] [place] [phone] Agustin Granda M.D., Ph.D. [address] [place] [phone] 07/05/2024 1:30 PM DELPHI PROGRAMMER Comprehensive Visit Division of Trauma Critical Care and General Surgery in [place], [place] [address] [place] [phone] Agustin Granda M.D., Ph.D. [address] [place] [phone] 07/05/2024 3:00 PM DELPHI PROGRAMMER Appointment Department of Neurology in [place], [place] [address] [place] [phone] Agustin Granda M.D., Ph.D. [address] [place] [phone] Discharge Disposition: Home or Self Care 07/06/2024 7:24 PM DELPHI PROGRAMMER Hospital Encounter Post Anesthesia Care Unit in [place], [place] [address] [place] [phone] Agustin Granda M.D., Ph.D. [address] [place] [phone] 07/06/2024 7:24 PM DELPHI PROGRAMMER - 07/06/2024 10:14 PM DELPHI PROGRAMMER Surgery [facility]IN OR [address] [place] [phone] Agustin Granda M.D., Ph.D. [address] [place] [phone] FAGOT MAKER shunt placement 07/20/2024 10:00 AM DELPHI PROGRAMMER Office Visit Department of Community Internal Medicine in [place], [place] [address] [place] [phone] Laly Dickey MPAS, P.A.-C. [address] [place] [phone] 07/28/2024 8:30 AM DELPHI PROGRAMMER Appointment Department of Radiology in [place], [place] [address] [phone] Laly Dickey MPAS, P.A.-C. 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) documented in this encounter Results * (ABNORMAL) Basic Metabolic Panel (06/14/2024 9:31 AM DELPHI PROGRAMMER) Potassium, P 4.7 3.6 - 5.2 mmol/L 06/14/2024 2:11 PM DELPHI PROGRAMMER OWAT Sodium, P 140 135 - 145 mmol/L 06/14/2024 2:11 PM DELPHI PROGRAMMER OWAT Chloride, P 98 98 - 107 mmol/L 06/14/2024 2:11 PM DELPHI PROGRAMMER OWAT Bicarbonate, P 30(H) 22 - 29 mmol/L 06/14/2024 2:11 PM DELPHI PROGRAMMER OWAT Anion Gap, P 12 7 - 15 06/14/2024 2:11 PM DELPHI PROGRAMMER OWAT BUN (Blood Urea Nitrogen), P 24(H) 6 - 21 mg/dL 06/14/2024 2:11 PM DELPHI PROGRAMMER OWAT Creatinine 2.02(H) 0.59 - 1.04 mg/dL 06/14/2024 2:11 PM DELPHI PROGRAMMER OWAT Estimated GFR (eGFR) 26(L) >=60 mL/min/BSA 06/14/2024 2:11 PM DELPHI PROGRAMMER OWAT Comment: Estimated GFR calculated using the 2020 CKD_EPI creatinine equation. Calcium, Total, P 9.6 8.8 - 10.2 mg/dL 06/14/2024 2:11 PM DELPHI PROGRAMMER OWAT Glucose, P 126 70 - 140 mg/dL 06/14/2024 2:11 PM DELPHI PROGRAMMER OWAT Blood (Blood, Venous) 06/14/2024 9:31 AM DELPHI PROGRAMMER 06/14/2024 1:06 PM DELPHI PROGRAMMER us Laly LAKHANI P.A.-C. LAB BLOOD ADD-ON Final Result [facility] [address] [place] [address], [facility] OWAT [facility] in [place] [address] [place] [address] documented in this encounter Visit Diagnoses Diagnosis Hydrocephalus Normal Pressure (HCC)- Primary Diabetes Mellitus Type 2 With Diabetic Polyneuropathy (HCC) Hydrocephalus Normal Pressure (HCC) documented in this encounter Additional Health Concerns Assessment Noted Time PHQ-9 Depression Total Score: 5 02/14/20 24 9:00 AM CDT documented as of this encounter Care Teams Mincing Machine Operator Relationship Specialty Start Date End Date Laly Dickey MPAS, P.A.-C. [address] [place] [address] [place] [phone] PCP - General Internal Medicine 07/28/22 documented as of this encounter
--- OUTSIDE RECORDS SUMMARY | 2024-06-20 16:35 | XMS_ITS | Encounter Summary ---
Author Organization [facility] Address [address] [place] [address] [address] [place] [phone] Care Team Providers Care Staff Writer Name Role Phone Gen Michaels MD Primary Care Provider [phone] Ambrosio Hill MD Primary Care Provider [phone] Ambrosio Hill MD Unavailable Provider, No Attributed RESOURCE Unavailable Unavailable Ambrosio Hill MD Unavailable + Ambrosio Hill MD Unavailable Natalie Estrada MD Unavailable [phone] Jakub Barr MD Unavailable [phone] Merary Ware REPAIR COIL WINDER-SERVICE SPRINKLER HELPER Unavailable [phone] Provider, No Attributed RESOURCE Unavailable Unavailable Ambrosio Hill MD Unavailable + Provider, No Attributed RESOURCE Unavailable Unavailable Encounter Details Date Type Department Care Team (Late st Contact Info) Description 04/07/2013 Dictated / No Visit [facility] FAMILY MEDICINE [address] [place] [phone] Gen Michaels MD [address] [place], [place] [phone] Social History Tobacco Use Types Packs/Day Years [...] Progress Notes * Gen Michaels MD - 04/07/2013 10:27 AM CST 04/07/2013 RAJINDER VERMA [id number] [place] [address] MR#: [id number] CSN: Dear Rajinder: I have received the report of your mammogram and it is normal. Sincerely, Gen Michaels M.D., Family Medicine [id number] CANVASSER * Gen Michaels MD - 04/07/2013 10:25 AM CST 04/07/2013 RAJINDER VERMA [address] [place], [place] [address] MR#: [id number] CSN: Dear Rajinder: I have received the report of your blood tests. Your lipid profile shows your cholesterol to be very good at 167. We like to see it under 200. Yourtriglycerides are a little high at 226 with normal being less than 150. This will come down with weight loss. Your HDL is the good cholesterol we like to see over 40 and yours is normal at 52. Your LDL is the bad cholesterol we like to see under 100 and yours is very good at 67. Your liver test is normal. Your blood panel shows your blood sugar to be a little high at 119. We like to see it down around 106. Your kidney function tests, sodium, potassium, and calcium, are normal. Your hemoglobin A1C is the measure of how your diabetes is doing and we like to see that 7 or less, and yours is right at 7. Your hemoglobin measures the iron in your blood and yours is good at 12.2. We should check these again in about 6 months. Sincerely, Gen Michaels M.D., Family Medicine [id number] CANVASSER documented in this encounter Plan of Treatment Not on file documented as of this encounter Visit Diagnoses Not on filedocumented in this encounter Additional Health Concerns Infection Onset Date Last Indicated Resolved Time COVID-19 04/23/2020 04/23/2020 05/03/2020 11:5 7 PM BOOK CANVASSER documented as of this encounter Care Teams Staff Writer Relationship Specialty Start Date End Date Gen Michaels MD [address] [place] [address] PCP - General Family Medicine 07/25/13 07/05/14 Ambrosio Hill MD [address] [place] [address] PCP - General Family Medicine 07/06/14 03/04/22 Ambrosio Hill MD [address] [place] [address] PCP - Attributed Provider 01/30/16 04/19/16 Provider, No Attributed, RESOURCE [address] PCP - Attributed Provider 04/20/16 04/21/16 Ambrosio Hill MD [address] [place] [address] PCP - Attributed Provider 04/22/16 11/21/20 Ambrosio Hill MD [address] [place] [address] PCP - Attributed Provider 11/22/20 03/23/22 Provider, No Attributed, RESOURCE [address] PCP - Attributed Provider 03/24/22 05/26/22 Ambrosio Hill MD [address] [place] [address] PCP - Attributed Provider 05/27/22 02/22/24 Provider, No Attributed, RESOURCE [address] PCP - Attributed Provider 02/23/24 Natalie Estrada MD [address] [place] [address] Nephrology (Internal Medicine) 09/18/21 Jakub Barr MD [address] [place] [address] Orthopedic Surgery 09/18/21 Merary Ware APRN-SERVICE SPRINKLER HELPER [address] [place] [address] SERVICE SPRINKLER HELPER - Oncology 09/18/21 documented as of this encounter
--- OUTSIDE RECORDS SUMMARY | 2024-06-20 16:35 | XMS_ITS | Clinical Summary ---
Author Organization [facility] Address [address] [place] [address] Care Team Providers Care Butcher Scullion Name Role Phone Laly Dickey P.A.-C. Primary Care Pro vider Source Comments Patient records contain information from all sites at [facility]. For routine questions regarding patient records, call [phone] during business hours, M-F 8:00 AM - 5:00 PM Central Time. Record requests for emergency care only can be directed to [phone] at any time.[facility] Allergies Active Allergy Reactions Criticality Noted Date [...] wheezing or shortness of breath. 90 mL 10/19/19 24 Active diclofenac sodium (Voltaren) 1 % gel Apply 4 g topically 4 (four) times a day as needed (Pain). Apply to right shoulder. 200 g 3 01/12/20 24 Active OneTouch Verio Reflect Meter misc APPLY 1 EACH TOPICALLY 1 each 03/07/20 24 Active Spiriva Respimat 2.5 mcg/actuation inhaler inhale [...] skin every 7 (seven) days. 3 mL 06/14/19 25 Active atorvastatin (Lipitor) 80 mg [...] BY MOUTH DAILY 270 tablet 3 09/08/19 025 Discontinued OneTouch Verio test strips 3 [...] MOUTH AT BEDTIME 270 tablet 3 02/24/20 24 025 Discontinued(R eorder) traMADoL (Ultram) 50 mg [...] 09/08/2022 Overview (01/20/2023): Consult with Orthopedics in [place] August 2022. Patient elected for surgical intervention [...] on 10/19/2019. Hypertension Essential Primary 10/06/2006 12/27/2022 Encounters Date Type Department Care Team Description 06/20/2024 10:32 AM SHEET METAL INSTALLER Hospital Encounter Department of Laboratory Medicine in [address] [phone] Laly Dickey MPAS, P.A.-C. Parotitis 06/20/2024 9:20 AM SHEET METAL INSTALLER Office Visit Department of Community Internal Medicine in [address] [phone] Laly Dickey MPAS, P.A.-C. 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 Swollen Glands 06/14/2024 9:23 AM SHEET METAL INSTALLER - 06/14/2024 11:59 PM SHEET METAL INSTALLER Hospital Encounter Department of Laboratory Medicine in [address] [phone] Laly Dickey MPAS, P.A.-C. Diabetes Mellitus Type 2 With Diabetic Polyneuropathy (HCC) Discharge Disposition: Home or Self Care 06/14/2024 9:23 AM SHEET METAL INSTALLER - 06/14/2024 11:59 PM SHEET METAL INSTALLER Hospital Encounter Department of Laboratory Medicine in [address] [phone] Laly Dickey MPAS, P.A.-C. Chronic Kidney Disease (CKD), Stage 3b Glomerular Filtration Rate (GFR) 30 To 44 (HCC) Discharge Disposition: Home or Self Care 06/14/2024 8:40 AM SHEET METAL INSTALLER Office Visit Department of Community Internal Medicine in [address] [phone] Laly Dickey MPAS, P.A.-C. Obesity Body Mass [...] 06/13/2024 Clinical Communication Pharmacy Prior Auth RO [phone] Eli Baldwin I. 06/12/2024 Clinical Communication Department of Community Internal Medicine in [address] [phone] Laly Dickey MPAS, P.A.-C. Med Question 06/08/2024 Refill Department of Community Internal Medicine in [address] [phone] Laly Dickey MPAS, P.A.-C. Med Refill 06/07/2024 7:41 AM [facility] - 06/07/2024 11:59 PM [facility] Hospital Encounter Department of Laboratory Medicine in [address] [phone] Laly Dikcey MPAS, P.A.-C. Diabetes Mellitus Type 2 With Diabetic Polyneuropathy (HCC); Chronic Kidney Disease (CKD), Stage 3b Glomerular Filtration Rate (GFR) 30 To 44 (HCC); Diabetes Mellitus Type 2 With Diabetic Polyneuropathy (HCC) Discharge Disposition: Home or Self Care 06/07/2024 Refill Department of Community Internal Medicine in [address] [phone] Laly Dickey MPAS, P.A.-C. Med Refill 06/03/2024 Refill Department of Community Internal Medicine in [address] [phone] Laly Dickey MPAS, P.A.-C. Med Refill 05/28/2024 Refill Department of Community Internal Medicine in [address] [phone] Laly Dickey MPAS, P.A.-C. Med Refill 05/21/2024 Refill Department of Community Internal Medicine in [address] [phone] Laly Dickey MPAS, P.A.-C. Med Refill 05/09/2024 Orders Only Department of Neurologic Surgery in [place], [place] [address] [place] [address] Hilario, Brina M, R.N. Hydrocephalus Normal Pressure (HCC) (Primary Dx) 05/08/2024 Refill Department of Community Internal Medicine in [place], [place] [address] [place] [phone] Laly Dickey MPAS, P.A.-C. Med Refill 05/01/2024 Refill Department of Community Internal Medicine in [address] [phone] Garo Suresh P.A.-C. Med Refill 04/25/2024 Documentation Preoperative Evaluation Center in [place], [place] [address] [place] [phone] Zaida Denis APRN, C.N.P. 04/24/2024 4:00 PM SHEET METAL INSTALLER Comprehensive Visit Department of Neurologic Surgery in [place], [place] [address] [place] [phone] Agustin Granda M.D., Ph.D. Preoperative Exam (Primary Dx); Hydrocephalus Normal Pressure (HCC) 04/22/2024 Refill Department of Community Internal Medicine in [address] [phone] Laly Dickey MPAS, P.A.-C. Med Refill 04/21/2024 9:30 AM SHEET METAL INSTALLER Clinical Communication Virtual Review in [place], [place] [address] [place] [address] Pre-visit Intake 04/08/2024 Refill Department of Community Internal Medicine in [place], [place] [address] [place] [phone] Laly Dickey MPAS, P.A.-C. Med Refill 04/04/2024 Orders Only [facility] Laly Dickey MPAS, P.A.-C. Screening Mammogram Breast Cancer 03/22/2024 Clinical Communication Department of Neurology in [place], [place] [address] [place] [phone] Otis Metz M.D. 03/21/2024 1:00 PM CDT Office Visit Department of Community Internal Medicine in [place], [place] [address] [place] [phone] Laly Dickey MPAS, P.AKavya-CKavya Pain Low Back Chronic (Primary Dx); Numbness Lower Extremity; Chronic Kidney Disease (CKD), Stage 3b Glomerular Filtration Rate (GFR) 30 To 44 (HCC); Diabetes Mellitus Type 2 With Diabetic Polyneuropathy (HCC) 03/20/2024 Refill Department of Community Internal Medicine in [place], [place] [address] [place] [address] Laly Dickey MPAS, P.A.-C. Med Refill from Last 3 Months Immunizations Immunization Administration Dates Next Due HZV [...] Brother 1 Augustus Diabetes Brother 2 Med Hypertension Brother 3 Kar Prediabetes Brother 3 Kar Psychiatric disorder Brother 3 Kar Prediabetes Daughter Lea Lung cancer Father Quinton at age 70 Prostate cancer Father Quinton Heart Mother Pat Hyperlipidemia Mother Pat Hypertension Mother Pat Lung cancer Mother Pat at age 62 Diabetes Paternal Grandmother imer she pas sed away Diabetes mellitus type II Paternal Grandmother josselyn t Diabetes Sister Angelina Heart murmur Son Ben Open heart surgery Son Ben Relation Name Status Comments Brother 1 Augustus Alive Brother 2 Med Alive Brother 3 Kar Alive Daughter Lea Alive Father Quinton Mother Pat Paternal Grandmother imer Sister Angelina Alive Son Ben Alive Social History Tobacco Use Types Packs/Day Years Used Date Smoking Tobacco: Former Cigarettes 2 30 0 11/13/1975 - 11/12/2005 Passive Smoke Exposure: Past Smokeless Tobacco: Never Tobacco Cessation:Counseling Given: Not Answered Alcohol Use Standard Drinks/Week Comments Not Currently 0 (1 standard drink = 0.6 oz pur e alcohol) [facility] Utilities Answer Date Recorded In the past 12 months has e [employer], gas, oil, or water [employer] threatened to shut off services in your [...] your living situation today? I have a [facility]ane[facility] hospital place to live 02/14/2024 Comments No Sex and Gender Information Value Date Recorded Sex Assigned at Female 03/19/2023 10:10 AM CDT Legal Sex Female 1:31 PM SHEET METAL INSTALLER Gender Identity Female 03/19/2023 10:10 AM CDT Sexual Orientation Not on file Last Filed Vital Signs Vital Sign Reading Time Taken Comments Blood Pressure 101/63 06/20/2024 9:12 AM SHEET METAL INSTALLER Pulse 94 06/20/2024 9:12 AM SHEET METAL INSTALLER Temperature 36 C (96.8 F) 06/20/2024 9:07 AM SHEET METAL INSTALLER Respiratory Rate 20 06/20/2024 9:07 AM SHEET METAL INSTALLER Oxygen Saturation 98% 06/20/2024 9:07 AM SHEET METAL INSTALLER Inhaled Oxygen Concentration - - Weight 105 kg (232 lb 9.4 oz) 06/20/2024 9:07 AM SHEET METAL INSTALLER Height 171 cm (5' 7.32) 06/20/2024 9:07 AM SHEET METAL INSTALLER Body Mass Index 36.08 06/20/2024 9:07 AM SHEET METAL INSTALLER Plan of Treatment Upcoming Encounters Date Type Department Care Team (Latest Contact Info) Description 06/21/2024 9:00 AM SHEET METAL INSTALLER Appointment Department of Radiology in [place], [place] [address] [place] [phone] Laly Dickey MPAS, P.A.-C. [address] [place] [phone] 07/05/2024 9:30 AM SHEET METAL INSTALLER Lab Department of Laboratory Medicine and Pathology, [facility] in [place], [place] [address] [place] [phone] Agustin Granda M.D., Ph.D. [address] [place] [phone] 07/05/2024 1:30 PM SHEET METAL INSTALLER Comprehensive Visit Division of Trauma Critical Care and General Surgery in [address] [phone] Agustin Granda M.D., Ph.D. [address] [place] [phone] 07/05/2024 3:00 PM SHEET METAL INSTALLER Appointment Department of Neurology in [place], [place] [address] [place] [phone] Agustin Granda M.D., Ph.D. [address] [place] [phone] Discharge Disposition: Home or Self Care 07/06/2024 7:24 PM SHEET METAL INSTALLER Hospital Encounter Post Anesthesia Care Unit in [address] [phone] Agustin Granda M.D., Ph.D. [address] [place] [phone] 07/06/2024 7:24 PM SHEET METAL INSTALLER - 07/06/2024 10:14 PM SHEET METAL INSTALLER Surgery RST [facility] MAIN OR [address] [place] [address] Agustin Granda M.D., Ph.D. [address] [place] [phone] BEVERAGE INSPECTION MACHINE TENDER shunt placement 07/20/2024 10:00 AM SHEET METAL INSTALLER Office Visit Department of Community Internal Medicine in [address] [phone] Laly Dickey MPAS, P.A.-C. [address] [place] [phone] 07/28/2024 8:30 AM SHEET METAL INSTALLER Appointment Department of Radiology in [place], [place] [address] [place] [phone] Laly Dickey MPAS, P.A.-C. 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 Health Maintenance Due Date Last Done Comments CT Colonography 1955 Cologuard 1955 FIT 1955 Hepatitis C Screening 1955 RSV vaccine - (32-36 weeks) or 60+ years (1 - Risk 60-74 years 1-dose series) 2013 Dilated Eye Exam 11/28/2023 11/27/2022 (Per formed elsewhere) Diabetic Office Visit with Foot Exam 01/21/2024 01/20/2023 COVID-19 Vaccine ( season) 2024 02/09/2022, 12/09/2021, 07/03/2021, Additional history exists Mammogram 03/26/2024 03/26/2023, 01/2022, 02/06/2022, Additional history exists Controlled Substance Monitoring (UDS) 06/09/2024 03/22/2023 PEG assessment for Opioid therapy 09/07/2024 06/09/2024 Hemoglobin A1C 12/05/2024 06/07/2024, 07/2023, 06/01/2023, Additional history exists Controlled Substance Agreement 02/13/2025 02/14/2024 Controlled Substance Monitoring (PHQ-9) 02/13/2025 02/14/2024 Generalized Anxiety (ADEN-7) 02/13/2025 02/14/2024 Visit: Medicare Annual Wellness 02/14/2025 02/14/2024 Opioid Use Disorder (OUD) Screening 06/09/2025 02/14/2024 Creatinine Level (Kidney Function Test) 06/14/2025 06/14/2024, 06/07/2024, 01/12/2024, Additional history exists Potassium Level 06/14/2025 06/14/2024, 0 12/2024, 01/12/2024, Additional history exists Sodium Level 06/14/2025 06/14/2024, 0 12/2024, 01/12/2024, Additional history exists Urine Albumin 06/14/2025 06/14/2024, 0 12/2024, 08/24/2022 Visit: Chronic Disease, age 18+ 06/14/2025 06/14/2024, 06/14/2024 Office Visit for Blood Pressure Check / Re-check 06/20/2025 06/20/2024 Colonoscopy 05/22/2026 05/22/2021 (Perf ormed elsewhere) Colorectal Cancer Screening 05/22/2026 Lipid (Cholesterol) Screening 06/07/2029 06/07/2024, 02/26/2023, 02/06/2022, Additional history exists DTaP,Tdap,and Td Vaccines (4 - Td or Tdap) 12/01/2032 12/01/2022, 06/12/2014, 02/15/2013 Bone Density Scan (Osteoporosis Screen) Discontinued 01/12/2019 Pneumococcal vaccine (50+ years) Completed 03/29/2019, 03/22/2018, 02/15/2013, Additional history exists Zoster Vaccines Completed 07/14/2019, 04/30, 02/15/2013 Opioid Risk Tool (ORT) Completed 10/19/2023 Hepatitis B Vaccines Completed 02/14/2024, 06/02/19 24 Influenza Vaccine Completed 02/14/2024, , 02/09/2022, Additional history exists Fall Risk Screen (Annual) Completed 06/14/2024 IPV Vaccines Aged Out No longer eligi ble based on patient's age to complete this topic Medical Devices Implanted Type Area Supervisor Microwave Device Identifier Shelf Expiration Date Model / Serial / Lot Knee Implant Knee Implant Bilateral : Knee Ocular Lens Ocular Lens Bilateral : Eye Procedures Procedure Name Priority Date/Time Associated Diagnosis Comments C-REACTIVE PROTEIN (CRP), S/P Routine 06/20/2024 10:42 AM SHEET METAL INSTALLER Parotitis CBC WITH DIFFERENTIAL, B Routine 06/20/2024 10:42 AM SHEET METAL INSTALLER Parotitis BASIC METABOLIC PANEL, S/P Routine 06/14/2024 9:31 AM SHEET METAL INSTALLER Diabetes Mellitus Type 2 With Diabetic Polyneuropathy (HCC) ALBUMIN, RANDOM, U Routine 06/14/2024 9: 30 AM SHEET METAL INSTALLER Chronic Kidney Disease (CKD), Stage 3b Glomerular Filtration Rate (GFR) 30 To 44 (HCC) PHOSPHORUS (INORGANIC), S Routine 06/07/2024 8:02 AM SHEET METAL INSTALLER Chronic Kidney Disease (CKD), Stage 3b Glomerular Filtration Rate (GFR) 30 To 44 (HCC) VITAMIN D, IMMUNOASSAY, TOTAL, S Routine 06/07/2024 8:02 AM SHEET METAL INSTALLER Chronic Kidney Disease (CKD), Stage 3b Glomerular Filtration Rate (GFR) 30 To 44 (HCC) PARATHYROID HORMONE (PTH), S Routine 06/07/2024 8:02 AM SHEET METAL INSTALLER Chronic Kidney Disease (CKD), Stage 3b Glomerular Filtration Rate (GFR) 30 To 44 (HCC) CBC WITH DIFFERENTIAL, B Routine 06/07/2024 8:02 AM SHEET METAL INSTALLER Chronic Kidney Disease (CKD), Stage 3b Glomerular Filtration Rate (GFR) 30 To 44 (HCC) LIPID PANEL, S Routine 06/07/2024 8:02 AM SHEET METAL INSTALLER Diabetes Mellitus Type 2 With Diabetic Polyneuropathy (HCC) BASIC METABOLIC PANEL, S/P Routine 06/07/2024 8:02 AM SHEET METAL INSTALLER Chronic Kidney Disease (CKD), Stage 3b Glomerular Filtration Rate (GFR) 30 To 44 (HCC) HEMOGLOBIN A1C, B Routine 06/07/2024 8:0 2 AM SHEET METAL INSTALLER Diabetes Mellitus Type 2 With Diabetic Polyneuropathy (HCC) ALBUMIN, RANDOM, U Routine 06/07/2024 8: 00 AM SHEET METAL INSTALLER Diabetes Mellitus Type 2 With Diabetic Polyneuropathy (HCC) BI BREAST SCREENING BILATERAL WITH TOMOSYNTHESIS RAD - Routine (most inpatients and all outpatients) 03/26/2023 1:09 PM CDT Screening Mammogram Breast Cancer from Last 3 Months or Most Recently Relevant to Health Maintenance Results * (ABNORMAL) CBC with Differential, Blood (06/20/2024 10:42 AM SHEET METAL INSTALLER) Only the most recent of2 resultswithin the time period is included. Hemoglobin 12.4 11.6 - 15.0 g/dL 06/20/2024 11:12 AM SHEET METAL INSTALLER FB60 Hematocrit 37.1 35.5 - 44.9 % 06/20/2024 11:12 AM SHEET METAL INSTALLER FB60 Erythrocytes 4.09 3.92 - 5.13 x10(12)/L 06/20/2024 11:12 AM SHEET METAL INSTALLER FB60 MCV 90.7 78.2 - 97.9 fL 06/20/2024 11:12 AM SHEET METAL INSTALLER FB60 RBC Distrib Width 12.7 12.2 - 16.1 % 06/20/2024 11:12 AM SHEET METAL INSTALLER FB60 Platelet Count 330 157 - 371 x10(9)/L 06/20/2024 11:12 AM SHEET METAL INSTALLER FB60 Leukocytes 17.7(H) 3.4 - 9.6 x10(9)/L 06/20/2024 11:12 AM SHEET METAL INSTALLER FB60 Neutrophils 13.64(H) 1.56 - 6.45 x10(9)/L 06/20/2024 11:12 AM SHEET METAL INSTALLER FB60 Lymphocytes 2.28 0.95 - 3.07 x10(9)/L 06/20/2024 11:12 AM SHEET METAL INSTALLER FB60 Monocytes 1.54(H) 0.26 - 0.81 x10(9)/L 06/20/2024 11:12 AM SHEET METAL INSTALLER FB60 Eosinophils 0.17 0.03 - 0.48 x10(9)/L 06/20/2024 11:12 AM SHEET METAL INSTALLER FB60 Basophils 0.05 0.01 - 0.08 x10(9)/L 06/20/2024 11:12 AM SHEET METAL INSTALLER FB60 Blood (Blood, Venous) 06/20/2024 10:42 AM SHEET METAL INSTALLER 06/20/2024 10:42 AM SHEET METAL INSTALLER Laly LAKHANI, P.A.-C. LAB BLOOD ADD-ON Final Result [facility] [address] [place] [address], [facility] FB60 [facility] [place] [address] * (ABNORMAL) CRP (C-Reactive Protein) (06/20/2024 10:42 AM SHEET METAL INSTALLER) C-Reactive Protein (CRP), P 56.8(H) <5.0 mg/L 06/20/2024 1:58 PM SHEET METAL INSTALLER OWAT Blood (Blood, Venous) 06/20/2024 10:42 AM SHEET METAL INSTALLER 06/20/2024 1:22 PM SHEET METAL INSTALLER us Laly LAKHANI, P.A.-C. LAB BLOOD ADD-ON Final Result [facility] [address] [place] [address], [facility] OWAT [facility] [place] [address] [place] [address] * (ABNORMAL) Basic Metabolic Panel (06/14/2024 9:31 AM SHEET METAL INSTALLER) Only the most recent of2 resultswithin the time period is included. Potassium, P 4.7 3.6 - 5.2 mmol/L 06/14/2024 2:11 PM SHEET METAL INSTALLER OWAT Sodium, P 140 135 - 145 mmol/L 06/14/2024 2:11 PM SHEET METAL INSTALLER OWAT Chloride, P 98 98 - 107 mmol/L 06/14/2024 2:11 PM SHEET METAL INSTALLER OWAT Bicarbonate, P 30(H) 22 - 29 mmol/L 06/14/2024 2:11 PM SHEET METAL INSTALLER OWAT Anion Gap, P 12 7 - 15 06/14/2024 2:11 PM SHEET METAL INSTALLER OWAT BUN (Blood Urea Nitrogen), P 24(H) 6 - 21 mg/dL 06/14/2024 2:11 PM SHEET METAL INSTALLER OWAT Creatinine 2.02(H) 0.59 - 1.04 mg/dL 06/14/2024 2:11 PM SHEET METAL INSTALLER OWAT Estimated GFR (eGFR) 26(L) >=60 mL/min/BSA 06/14/2024 2:11 PM SHEET METAL INSTALLER OWAT Comment: Estimated GFR calculated using the 2020 CKD_EPI creatinine equation. Calcium, Total, P 9.6 8.8 - 10.2 mg/dL 06/14/2024 2:11 PM SHEET METAL INSTALLER OWAT Glucose, P 126 70 - 140 mg/dL 06/14/2024 2:11 PM SHEET METAL INSTALLER OWAT Blood (Blood, Venous) 06/14/2024 9:31 AM SHEET METAL INSTALLER 06/14/2024 1:06 PM SHEET METAL INSTALLER us Laly LAKHANI, P.A.-C. LAB BLOOD ADD-ON Final Result [facility] [address] [place] [address], [facility] OWAT [facility] [place] [address] [place] [phone] * Albumin, Random, Urine (06/14/2024 9:30 AM SHEET METAL INSTALLER) Only the most recent of2 resultswithin the time period is included. Microalbumin <12.0 mg/L 06/14/2024 2:02 PM SHEET METAL INSTALLER OWAT Comment:If clinically indica jim, contact the lab for additional testing. Creatinine 56 mg/dL 06/14/2024 2:02 PM SHEET METAL INSTALLER OWAT Albumin/Creatinine Ratio <21 <25 mg/g 06/14/2024 2:02 PM SHEET METAL INSTALLER OWAT Comment: This ratio may not correspond with the reference range because one or both of the values used to calculate the ratio was above or below the quantification limits. Urine (Urine, Midstream) 06/14/2024 9:30 AM SHEET METAL INSTALLER 06/14/2024 1:05 PM SHEET METAL INSTALLER Laly LAKHANI, P.A.-C. LAB URINE ORDERAB LES Final Result [facility] [address] [place] [address], [facility] OWAT [facility] [place] [address] [place] [phone] * (ABNORMAL) Lipid Panel (06/07/2024 8:02 AM SHEET METAL INSTALLER) Triglycerides 246(H) mg/dL 06/07/2024 4:47 PM SHEET METAL INSTALLER OWAT Comment: ----REFERENCE VALUE---- Normal: <150 mg/dL Borderline High: 150-199 mg/dL High: 200-499 mg/dL Very High: > or =500 mg/dL Cholesterol, Total 326(H) mg/dL 2024 4:47 PM SHEET METAL INSTALLER OWAT Comment: ----REFERENCE VALUE---- Desirable: < 200 mg/dL Borderline High: 200 - 239 mg/dL High: > or = 240 mg/dL Cholesterol, LDL, Calculated 232(H) mg/dL 06/07/2024 4:47 PM SHEET METAL INSTALLER OWAT Comment: The markedly elevated LDL level [...] HDL 44(L) >=50 mg/dL 06/07/2024 4:47 PM SHEET METAL INSTALLER OWAT Cholesterol, Non-HDL, Calculated 282(H) mg/dL 06/07/2024 4:47 PM SHEET METAL INSTALLER OWAT Comment: ----REFERENCE VALUE---- Desirable: <130 mg/dL Above Desirable: 130-159 mg/dL Borderline High: 160-189 mg/dL High: 190-219 mg/dL Very High: > or =220 mg/dL Fasting (8 HR or more) Yes 8:02 AM SHEET METAL INSTALLER OWAT Blood (Blood, Venous) 06/07/2024 8:02 AM SHEET METAL INSTALLER 06/07/2024 12:58 PM SHEET METAL INSTALLER Laly LAKHANI, P.A.-C. LAB BLOOD ADD-ON Final Result [facility] [address] [place] [address], [place] OWAT [facility] in [place] [address] [place] [address] * Vitamin D, Immunoassay, Total, Serum (06/07/2024 8:02 AM SHEET METAL INSTALLER) Vitamin D, Immunoassay, Total, S 40 20 - 80 ng/mL 06/07/2024 8:05 PM SHEET METAL INSTALLER MKTO Comment: Optimum levels within the healthy population are 20-50, patients with bone disease may benefit from high levels within this range Blood (Blood, Venous) 06/07/2024 8:02 AM SHEET METAL INSTALLER 06/07/2024 7:21 PM SHEET METAL INSTALLER Ailin LiraA.-C. LAB BLOOD ADD-ON Final Result Performing Organization Address City/[facility]/ZIP Co de Phone Number [facility] [address] [place] [address], [facility] MKTO [facility] [place] [address] [place] [address] * Phosphorus Inorganic (06/07/2024 8:02 AM SHEET METAL INSTALLER) Phosphorus (Inorganic), P 3.3 2.5 - 4.5 mg/dL 06/07/2024 4:00 PM SHEET METAL INSTALLER AUST Blood (Blood, Venous) 06/07/2024 8:02 AM SHEET METAL INSTALLER 06/07/2024 3:36 PM SHEET METAL INSTALLER Laly LAKHANI P.A.-C. LAB BLOOD ADD-ON Final Result Performing Organization Address [facility]/ZIP Co de Phone Number [facility] [address] [place] [address], [facility] AUST [facility] [address] [place] [address] * (ABNORMAL) Parathyroid Hormone (PTH) (06/07/2024 8:02 AM SHEET METAL INSTALLER) Parathyroid Hormone (PTH), S 103(H) 15 - 65 pg/mL 06/07/2024 3:55 PM SHEET METAL INSTALLER AUST Comment: Biotin has been identified by the saxophone player as a potential interfering substance. Higher concentrations of biotin may be found in multivitamins, hair/nail supplements, and workout supplements. If the result does not match clinical observations, repeat testing after patient refrains from the use of supplements for at least 12 hours. Blood (Blood, Venous) 06/07/2024 8:02 AM SHEET METAL INSTALLER 06/07/2024 3:36 PM SHEET METAL INSTALLER Laly Deanovic MPAS, P.A.-C. LAB BLOOD ADD-ON Final Result Performing Organization Address City/[facility]/ZIP Co de Phone Number [facility] [address] [place] [address], [facility] AUST [facility] [address] [place] [address] * (ABNORMAL) Hemoglobin A1c (06/07/2024 8:02 AM SHEET METAL INSTALLER) Hemoglobin A1c, B 5.9(H) 4.2 - 5.6 % 06/07/2024 3:15 PM SHEET METAL INSTALLER OWAT Comment: Hemoglobin A1c values of 5.7-6.4 percent indicate an increased risk for developing diabetes mellitus. In diabetic patients, HbA1c goals should be discussed with healthcare provider. Blood (Blood, Venous) 06/07/2024 8:02 AM SHEET METAL INSTALLER 06/07/2024 12:58 PM SHEET METAL INSTALLER us Laly Keli LAKHANI, P.A.-C. LAB BLOOD ADD-ON Final Result Performing Organization Address [facility] Co de Phone Number [facility] 0 [address] [place] [address], [facility] [place] [address] [place] [address] * BI Breast Screening Bilateral with Tomosynthesis [...] Screening Mammogram ASSESSMENT: BI-RADS: 1: Negative. Laly LAKHANI, P.A.-C. IMG BI PROCEDURES Final Result from Last 3 Months or Most Recently Relevant to Health Maintenance Insurance [facility] MEDICARE Care Teams Butcher Scullion Relationship Specialty Start Date End Date Laly Dickey MPAS, P.A.-C. [address] [place], [place] [address]NATASHA Johnson [phone] PCP - General Internal Medicine 07/28/22
--- OUTSIDE RECORDS SUMMARY | 2024-06-20 16:35 | XMS_ITS | Encounter Summary ---
Author Organization [facility] Address [address] [place] [address] [address] [place] [address] Care Team Providers Care Group Insurance Special Agent Name Role Phone Gen Michaels MD Primary Care Provider [phone] Ambrosio Hill MD Primary Care Provider + [phone] Ambrosio Hill MD Unavailable Provider, No Attributed RESOURCE Unavailable Unavailable Ambrosio Hill MD Unavailable + Ambrosio Hill MD Unavailable Natalie Estrada MD Unavailable [phone] Jakub Barr MD Unavailable [phone] Merary Ware HAND EDGE BANDER-CERTIFIED MEDICAL CODING SPECIALIST Unavailable [phone] Provider, No Attributed RESOURCE Unavailable Unavailable Ambrosio Hill MD Unavailable + Provider, No Attributed RESOURCE Unavailable Unavailable Encounter Details Date Type Department Care Team (Late st Contact Info) Description 2014 Dictated / No Visit [facility] [address] [place] [address] Gen Michaels MD [address] [place], [place] [phone] Social History Tobacco Use Types Packs/Day Years [...] Progress Notes * Gen Michaels MD - 2014 11:01 AM CDT 2014 RAJINDER VERMA [address] [place] [address] MR#: [id number] CSN: Dear Rajinder: I have received the report of your blood tests. Your blood panel shows that your blood sugar was 191. That is quite a bit higher than it was 11 months ago. Your kidney function tests, sodium, potassium, and calcium, were normal. Your hemoglobin A1c is the diabetic test we like to see down below 8%. A year ago, you were at 7.0%, but this year, you are up to 8.0%. We certainly do need to be more aggressive with your blood sugar control. Your lipid profile is very good with your cholesterol down to 132. We like to see it under 200. Your triglycerides are normal at 133 with normal being less than 150. Your HDL is the good cholesterol we like to see over 40 and yours is very good at 51. Your LDL is the bad cholesterol we like to see less than 100 and yours is excellent at 58. That should be checked in a year. Sincerely, Gen Michaels M.D., [facility] If you have signed up for [email or web address], please message me that you have received this letter. [id number] documented in this encounter Plan of Treatment Not on file documented as of this encounter Visit Diagnoses Not on filedocumented in this encounter Additional Health Concerns Infection Onset Date Last Indicated Resolved Time COVID-19 04/23/2020 04/23/2020 05/03/2020 11:5 7 PM DIVINE HEALER documented as of this encounter Care Teams Group Insurance Special Agent Relationship Specialty Start Date End Date Gen Michaels MD [address] [place] [address] PCP - General Family Medicine 07/25/13 07/05/14 Ambrosio Hill MD [address] [place] [place] [address] PCP - General Family Medicine 07/06/14 03/04/22 Ambrosio Hill MD [address] [facility] [place] [address] PCP - Attributed Provider 01/30/16 04/19/16 Provider, No Attributed, RESOURCE [address] PCP - Attributed Provider 04/20/16 04/21/16 Ambrosio Hill MD [address] [place] [place] [address] PCP - Attributed Provider 04/22/16 11/21/20 Ambrosio Hill MD [address] [place] [place] [address] PCP - Attributed Provider 11/22/20 03/23/22 Provider, No Attributed, RESOURCE [address] PCP - Attributed Provider 03/24/22 05/26/22 Ambrosio Hill MD [address] [place] [place] [address] PCP - Attributed Provider 05/27/22 02/22/24 Provider, No Attributed, RESOURCE [address] PCP - Attributed Provider 02/23/24 Natalie Estrada MD [address] [place] [address] Nephrology (Internal Medicine) 09/18/21 Jakub Barr MD [facility] [place] [address] Orthopedic Surgery 09/18/21 Merary Ware, HAND EDGE BANDER-CERTIFIED MEDICAL CODING SPECIALIST [address] [place], [place] [address] [address] CERTIFIED MEDICAL CODING SPECIALIST - Oncology 09/18/21 documented as of this encounter
--- OUTSIDE RECORDS SUMMARY | 2024-06-20 16:36 | XMS_ITS | Encounter Summary ---
Author Organization [facility] Address [address] [place] [address] Care Team Providers Care Continuity Director Name Role Phone Laly Dickey P.A.-CKavya Primary Care Pro vider Reason for Visit * Reason Comments Med Refill Encounter Details Date Type Department Care Team (Late st Contact Info) Description 06/03/2024 Refill Department of Community Internal Medicine in [place], [place] 300 [facility] [place] [address] Laly Dickey MPAS P.A.-C. [address] [place] [phone] Med Refill Social History Tobacco Use Types Packs/Day Years Used Date Smoking Tobacco: Former Cigarettes 2 30 0 11/13/1975 - 11/12/2005 Passive Smoke Exposure: Never Smokeless Tobacco: Never Alcohol Use Standard Drinks/Week Comments Not Currently 0 (1 standard drink = 0.6 oz pur e alcohol) [facility] Utilities Answer Date Recorded In the past 12 months has e [employer], gas, oil, or water [employer] threatened to shut off services in your [...] your living situation today? I have a [facility] place to live 02/14/2024 Comments No Sex and Gender Information Value Date Recorded Sex Assigned at Female 03/19/2023 10:10 AM CDT Legal Sex Female 1:31 PM CLEANER WALL Gender Identity Female 03/19/2023 10:10 AM CDT Sexual Orientation Not on file documented as of this encounter Plan of Treatment Upcoming Encounters Date Type Department Care Team (Latest Contact Info) Description 06/21/2024 9:00 AM CLEANER WALL Appointment Department of Radiology in [place], [place] [address] [place] [phone] Laly Dickey MPAS, P.A.-C. [address] [place] [phone] 07/05/2024 9:30 AM CLEANER WALL Lab Department of Laboratory Medicine and Pathology, [facility] in [place], [place] [address] [place] [phone] Agustin Granda M.D., Ph.D. [address] [place] [phone] 07/05/2024 1:30 PM CLEANER WALL Comprehensive Visit Division of Trauma Critical Care and General Surgery in [place], [place] [address] [place] [phone] Agustin Granda M.D., Ph.D. [address] [place] [phone] 07/05/2024 3:00 PM CLEANER WALL Appointment Department of Neurology in [place], [place] [address] [place] [phone] Agustin Granda M.D., Ph.D. [address] [place] [phone] Discharge Disposition: Home or Self Care 07/06/2024 7:24 PM CLEANER WALL Hospital Encounter Post Anesthesia Care Unit in [place], [place] [address] [place] [phone] Agustin Granda M.D., Ph.D. [address] [place] [phone] 07/06/2024 7:24 PM CLEANER WALL - 07/06/2024 10:14 PM CLEANER WALL Surgery RST ROMB MAIN OR [address] [place] [phone] Agustin Granda M.D., Ph.D. [address] [place] [phone] MONKEY BREEDER shunt placement 07/20/2024 10:00 AM CLEANER WALL Office Visit Department of Community Internal Medicine in [place], [place] 300 [place] [phone] Laly Dickey MPAS, P.A.-C. [address] [place] [phone] 07/28/2024 8:30 AM CLEANER WALL Appointment Department of Radiology in [place], [place] 300 [place] [phone] Laly Dickey MPAS, P.A.-C. [address] [place] [phone] Discharge Disposition: Home or Self Care Scheduled Procedures Name Priority Associated Diagnoses Date/Ti me IMPLANTATION SHUNT VENTRICULAR PERITONEAL Hydrocephalus Normal Pressure (HCC) 07/06/2024 7:24 PM CLEANER WALL ARTHROPLASTY TOTAL REVERSE SHOULDER Fracture 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 documented as of this encounter Visit Diagnoses Not on filedocumented in this encounter Additional Health Concerns Assessment Noted Time PHQ-9 Depression Total Score: 5 02/14/20 24 9:00 AM CDT documented as of this encounter Care Teams Continuity Director Relationship Specialty Start Date End Date Laly Dickey MPAS, P.A.-C. [address] [place] [phone] PCP - General Internal Medicine 07/28/22 documented as of this encounter
--- OUTSIDE RECORDS SUMMARY | 2024-06-20 16:36 | XMS_ITS | Encounter Summary ---
Author Organization [facility] Address [address] [place] [address] Care Team Providers Care Commercial Parts Professional Name Role Phone Laly Dickey P.A.-CKavya Primary Care Pro vider Reason for Visit * Reason Comments Med Refill Encounter Details Date Type Department Care Team (Late st Contact Info) Description 05/28/2024 Refill Department of Community Internal Medicine in [place], [place] 300 [facility] [place] [phone] Laly Dickey MPAS P.A.-C. [address] [place] [phone] Med Refill Social History Tobacco Use Types Packs/Day Years Used Date Smoking Tobacco: Former Cigarettes 2 30 0 11/13/1975 - 11/12/2005 Passive Smoke Exposure: Never Smokeless Tobacco: Never Alcohol Use Standard Drinks/Week Comments Not Currently 0 (1 standard drink = 0.6 oz pur e alcohol) [facility] Utilities Answer Date Recorded In the past 12 months has e [employer], gas, oil, or water [employer] threatened to shut off services in your [...] your living situation today? I have a [facility] place to live 02/14/2024 Comments No Sex and Gender Information Value Date Recorded Sex Assigned at Female 03/19/2023 10:10 AM CDT Legal Sex Female 1:31 PM PILE DRIVING SETTER Gender Identity Female 03/19/2023 10:10 AM CDT Sexual Orientation Not on file documented as of this encounter Miscellaneous Notes * Telephone Encounter - JosezinaGely - 05/29/2024 12:28 PM CST Proactive refill request denied. Has an OV scheduled on 06/14/24. DRIVING SETTER documented in this encounter Plan of Treatment Upcoming Encounters Date Type Department Care Team (Latest Contact Info) Description 06/21/2024 9:00 AM PILE DRIVING SETTER Appointment Department of Radiology in [place], [place] [address] [place] [phone] Laly Dickey MPAS, P.A.-C. [address] [place] [phone] 07/05/2024 9:30 AM PILE DRIVING SETTER Lab Department of Laboratory Medicine and Pathology, [facility], in [place], [place] [address] [place] [phone] Agustin Granda M.D., Ph.D. [address] [place] [phone] 07/05/2024 1:30 PM PILE DRIVING SETTER Comprehensive Visit Division of Trauma Critical Care and General Surgery in [place], [place] [address] [place] [phone] Agustin Granda M.D., Ph.D. [address] [place] [phone] 07/05/2024 3:00 PM PILE DRIVING SETTER Appointment Department of Neurology in [place], [place] [address] [place] [phone] Agustin Granda M.D., Ph.D. [address] [place] [phone] Discharge Disposition: Home or Self Care 07/06/2024 7:24 PM PILE DRIVING SETTER Hospital Encounter Post Anesthesia Care Unit in [address] [phone] Agustin Granda M.D., Ph.D. [address] [place] [phone] 07/06/2024 7:24 PM PILE DRIVING SETTER - 07/06/2024 10:14 PM PILE DRIVING SETTER Surgery RST ROMB MAIN OR [address] [place] [phone] Agustin Granda M.D., Ph.D. [address] [place] [phone] THERMOSTATIC CONTROLS SUPERVISOR shunt placement 07/20/2024 10:00 AM PILE DRIVING SETTER Office Visit Department of Community Internal Medicine in [address] [phone] Laly Dickey MPAS, P.A.-C. [address] [place] [phone] 07/28/2024 8:30 AM PILE DRIVING SETTER Appointment Department of Radiology in [address] [phone] Laly Dickey MPAS, P.A.-C. [address] [place] [phone] Discharge Disposition: Home or Self Care Scheduled Procedures Name Priority Associated Diagnoses Date/Ti me IMPLANTATION SHUNT VENTRICULAR PERITONEAL Hydrocephalus Normal Pressure (HCC) 07/06/2024 7:24 PM PILE DRIVING SETTER ARTHROPLASTY TOTAL REVERSE SHOULDER Fracture 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 documented as of this encounter Visit Diagnoses Not on filedocumented in this encounter Additional Health Concerns Assessment Noted Time PHQ-9 Depression Total Score: 5 02/14/20 24 9:00 AM CDT documented as of this encounter Care Teams Commercial Parts Professional Relationship Specialty Start Date End Date Laly Dickey MPAS, P.A.-C. [address] [place] [address] NATASHA [place]MA [phone] PCP - General Internal Medicine 07/28/22 documented as of this encounter
--- OUTSIDE RECORDS SUMMARY | 2024-06-20 16:36 | XMS_ITS | Encounter Summary ---
Author Organization [facility] Address [address] [place] [address] Care Team Providers Care Youth Advocate Name Role Phone Laly Dickey P.A.-C. Primary Care Pro vider Reason for Referral * Outpatient (Routine) - Authorized Specialty Diagnoses / Procedures Referred By Contac t Referred To Contact Diagnoses Hydrocephalus Normal Pressure (HCC) Procedures Neurological Gait Disorders Laboratory Hydrocephalus Agustin Granda M.D., Ph.D. [address] [place] [address] Phone: tel: fax: [facility] Referral ID Status Reason Start Date Expiration Date V isits Requested Visits Authorized [id number] Authorized 05/09/2024 05/09/2025 1 1 TUB WORKER HELPER Encounter Details Date Type Department Care Team (Late st Contact Info) Description 05/09/2024 Orders Only Department of Neurologic Surgery in [place], [place] [address] [place] [phone] Brina Rich R.N. Hydrocephalus Normal Pressure (HCC) (Primary Dx) Social History Tobacco Use Types Packs/Day Years Used Date Smoking Tobacco: Former Cigarettes 2 30 0 11/13/1975 - 11/12/2005 Passive Smoke Exposure: Never Smokeless Tobacco: Never Alcohol Use Standard Drinks/Week Comments Not Currently 0 (1 standard drink = 0.6 oz pur e alcohol) [facility] Utilities Answer Date Recorded In the past 12 months has [employer] gas, oil, or water [facility] threatened to shut off services in your [...] your living situation today? I have a [facility] place to live 02/14/2024 Comments No Sex and Gender Information Value Date Recorded Sex Assigned at Female 03/19/2023 10:10 AM CDT Legal Sex Female 1:31 PM WASHTUB WORKER HELPER Gender Identity Female 03/19/2023 10:10 AM CDT Sexual Orientation Not on file documented as of this encounter Plan of Treatment Upcoming Encounters Date Type Department Care Team (Latest Contact Info) Description 06/21/2024 9:00 AM WASHTUB WORKER HELPER Appointment Department of Radiology in [place], [place] [address] [place] [phone] Laly Dickey MPAS, P.A.-C. [address] [place] [phone] 07/05/2024 9:30 AM WASHTUB WORKER HELPER Lab Department of Laboratory Medicine and Pathology, [facility], in [place], [place] 200 [place] [phone] Agustin Granda M.D., Ph.D. [address] [place] [phone] 07/05/2024 1:30 PM WASHTUB WORKER HELPER Comprehensive Visit Division of Trauma Critical Care and General Surgery in [place], [place] [address] [place] [phone] Agustin Granda M.D., Ph.D. [address] [place] [phone] 07/05/2024 3:00 PM WASHTUB WORKER HELPER Appointment Department of Neurology in [place], [place] 200 [place] [phone] Agustin Granda M.D., Ph.D. [address] [place] [phone] Discharge Disposition: Home or Self Care 07/06/2024 7:24 PM WASHTUB WORKER HELPER Hospital Encounter Post Anesthesia Care Unit in [address] [phone] Agustin Granda M.D., Ph.D. [address] [place] [phone] 07/06/2024 7:24 PM WASHTUB WORKER HELPER - 07/06/2024 10:14 PM WASHTUB WORKER HELPER Surgery RST ROMB MAIN OR [address] [place] [phone] Agustin Granda M.D., Ph.D. [address] [place] [phone] DESK SERGEANT shunt placement 07/20/2024 10:00 AM WASHTUB WORKER HELPER Office Visit Department of Community Internal Medicine in [address] [phone] Laly Dickey MPAS, P.A.-C. [address] [place] [phone] 07/28/2024 8:30 AM WASHTUB WORKER HELPER Appointment Department of Radiology in [place], [place] 300 [place] [phone] Laly Dickey MPAS, P.A.-C. [address] [place] [phone] Discharge Disposition: Home or Self Care Scheduled Procedures Name Priority Associated Diagnoses Date/Ti me IMPLANTATION SHUNT VENTRICULAR PERITONEAL Hydrocephalus Normal Pressure (HCC) 07/06/2024 7:24 PM WASHTUB WORKER HELPER ARTHROPLASTY TOTAL REVERSE SHOULDER Fracture 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 documented as of this encounter Visit Diagnoses Diagnosis Hydrocephalus Normal Pressure (HCC)- Primary Hydrocephalus Normal Pressure (HCC)- Primary Hydrocephalus Normal Pressure (HCC) documented in this encounter Additional Health Concerns Assessment Noted Time PHQ-9 Depression Total Score: 5 02/14/20 24 9:00 AM CDT documented as of this encounter Care Teams Youth Advocate Relationship Specialty Start Date End Date Laly Dickey MPAS, P.A.-C. [address] [place] [phone] PCP - General Internal Medicine 07/28/22 documented as of this encounter
--- OUTSIDE RECORDS SUMMARY | 2024-06-20 16:36 | XMS_ITS | Encounter Summary ---
Author Organization [facility] Address [address] [place] [address] Care Team Providers Care Sweetbread Trimmer Name Role Phone Laly Dickey P.A.-CKavya Primary Care Pro vider Reason for Visit * Reason Comments Med Refill Encounter Details Date Type Department Care Team (Late st Contact Info) Description 06/07/2024 Refill Department of Community Internal Medicine in [place], [place] 300 [facility] [phone] Laly Dickey MPAS P.A.-C. 300 [place] [phone] Med Refill Social History Tobacco Use Types Packs/Day Years Used Date Smoking Tobacco: Former Cigarettes 2 30 0 11/13/1975 - 11/12/2005 Passive Smoke Exposure: Never Smokeless Tobacco: Never Alcohol Use Standard Drinks/Week Comments Not Currently 0 (1 standard drink = 0.6 oz pur e alcohol) [facility] Utilities Answer Date Recorded In the past 12 months has e [employer], gas, oil, or water [employer] threatened to shut off services in your [...] a [facility] place to live 02/14/2024 Comments No Sex and Gender Information Value Date Recorded Sex Assigned at Female 03/19/2023 10:10 AM CDT Legal Sex Female 1:31 PM COOK HOUSE SUPERVISOR Gender Identity Female 03/19/2023 10:10 AM CDT Sexual Orientation Not on file documented as of this encounter Miscellaneous Notes * Telephone Encounter - Janeth Restrepo L.PKavyaN. - 06/09/2024 3:53 PM COOK HOUSE SUPERVISOR Controlled substance renewal for Tramadol 50 mg: No nursing concerns Renewal is pended per the controlled substance prescribing plan located in Synopsis Date last renewed (start date): 05/09/2024 Last provider visit: 03/21/2024 Urine Drug Screen last resulted on: 03/22/2023; Next due: OVERDUE; needs scheduling Screenings due: PEG; wrap up nurse to complete Next provider visit due: Scheduled for 06/14/2024 Controlled substance agreement last reviewed/signed 02/14/2024 This prescription may be filled on 06/09/2024, and next renewal may be on or after 07/07/2024 HOUSE SUPERVISOR * Telephone Encounter - Dejah Allen - 06/08/2024 7:13 AM CST Needs Review: Med Refill Team is unable to forward request to provider. Controlled Substance, CSA Primary Provider: KAR Smith, P.A.-CKavya Requested Prescriptions Pending Prescriptions Disp Refills traMADoL (Ultram) 50 mg tablet [Pharmacy Med Name: TRAMADOL 50MG TABLETS] 28 tablet Sig: TAKE 1 TABLET(50 MG) BY MOUTH AT BEDTIME NEEDED FOR PAIN OR CHRONIC PAIN HOUSE SUPERVISOR documented in this encounter Plan of Treatment Upcoming Encounters Date Type Department Care Team (Latest Contact Info) Description 06/21/2024 9:00 AM COOK HOUSE SUPERVISOR Appointment Department of Radiology in [place], [place] [address] [place] [phone] Laly Dickey MPAS, P.A.-C. [address] [place] [phone] 07/05/2024 9:30 AM COOK HOUSE SUPERVISOR Lab Department of Laboratory Medicine and Pathology, [facility], in [place], [place] [address] [place] [phone] Agustin Granda M.D., Ph.D. [address] [place] [phone] 07/05/2024 1:30 PM COOK HOUSE SUPERVISOR Comprehensive Visit Division of Trauma Critical Care and General Surgery in [place] [address] [place] [phone] Agustin Granda M.D., Ph.D. [address] [place] [phone] 07/05/2024 3:00 PM COOK HOUSE SUPERVISOR Appointment Department of Neurology in [place], [place] [address] [place] [phone] Agustin Granda M.D., Ph.D. [address] [place] [phone] Discharge Disposition: Home or Self Care 07/06/2024 7:24 PM COOK HOUSE SUPERVISOR Hospital Encounter Post Anesthesia Care Unit in [place] [phone] [place] [phone] Agustin Granda M.D., Ph.D. [address] [place] [phone] 07/06/2024 7:24 PM COOK HOUSE SUPERVISOR - 07/06/2024 10:14 PM COOK HOUSE SUPERVISOR Surgery RST ROMB MAIN OR [facility] [place] [phone] Agustin Granda M.D., Ph.D. [address] [place] [phone] DEVELOPER ARCHITECT shunt placement 07/20/2024 10:00 AM COOK HOUSE SUPERVISOR Office Visit Department of Community Internal Medicine in [place], [place] 300 [facility] [place] [phone] Laly Dickey MPAS, P.A.-C. 300 [facility] [place] [phone] 07/28/2024 8:30 AM COOK HOUSE SUPERVISOR Appointment Department of Radiology in [place], [place] 300 [facility] [place] [phone] Laly Dickey MPAS, P.A.-C. 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 300 [facility] [place] [facility] [phone] PCP - General Internal Medicine 07/28/22 documented as of this encounter
--- OUTSIDE RECORDS SUMMARY | 2024-06-20 16:36 | XMS_ITS | Encounter Summary ---
Author Organization [facility] Address [address] [place] [address] Care Team Providers Care Geological Science Teacher Name Role Phone Laly Dickey P.A.-CKavya Primary Care Pro vider Reason for Visit * Reason Comments Med Refill Encounter Details Date Type Department Care Team (Late st Contact Info) Description 06/08/2024 Refill Department of Community Internal Medicine in [place], [place] [address] [facility] [place] [phone] Laly Dickey MPAS P.A.-C. [address] [place] [phone] Med Refill Social History Tobacco Use Types Packs/Day Years Used Date Smoking Tobacco: Former Cigarettes 2 30 0 11/13/1975 - 11/12/2005 Passive Smoke Exposure: Never Smokeless Tobacco: Never Alcohol Use Standard Drinks/Week Comments Not Currently 0 (1 standard drink = 0.6 oz pur e alcohol) [facility] Utilities Answer Date Recorded In the past 12 months has e [employer], gas, oil, or water [employer] threatened to shut off services in your [...] your living situation today? I have a [facility] place to live 02/14/2024 Comments No Sex and Gender Information Value Date Recorded Sex Assigned at Female 03/19/2023 10:10 AM CDT Legal Sex Female 1:31 PM RECEPTIONIST AIRLINE LOUNGE Gender Identity Female 03/19/2023 10:10 AM CDT Sexual Orientation Not on file documented as of this encounter Miscellaneous Notes * Telephone Encounter - KeronAndre funez - 06/09/2024 10:28 AM CST Duplicate request. First request is being reviewed PTIONIST AIRLINE LOUNGE documented in this encounter Plan of Treatment Upcoming Encounters Date Type Department Care Team (Latest Contact Info) Description 06/21/2024 9:00 AM RECEPTIONIST AIRLINE LOUNGE Appointment Department of Radiology in [place], [place] [address] [place] [phone] Laly Dickey MPAS, P.A.-C. [address] [place] [phone] 07/05/2024 9:30 AM RECEPTIONIST AIRLINE LOUNGE Lab Department of Laboratory Medicine and Pathology, [facility] in [place], [place] [address] [place] [address] Agustin Granda M.D., Ph.D. [address] [place] [phone] 07/05/2024 1:30 PM RECEPTIONIST AIRLINE LOUNGE Comprehensive Visit Division of Trauma Critical Care and General Surgery in [place], [place] [address] [place] [phone] Agustin Granda M.D., Ph.D. [address] [place] [phone] 07/05/2024 3:00 PM RECEPTIONIST AIRLINE LOUNGE Appointment Department of Neurology in [place], [place] [address] [place] [phone] Agustin Granda M.D., Ph.D. [address] [place] [phone] Discharge Disposition: Home or Self Care 07/06/2024 7:24 PM RECEPTIONIST AIRLINE LOUNGE Hospital Encounter Post Anesthesia Care Unit in [place] [phone] [place] [phone] Agustin Granda M.D., Ph.D. [address] [place] [phone] 07/06/2024 7:24 PM RECEPTIONIST AIRLINE LOUNGE - 07/06/2024 10:14 PM RECEPTIONIST AIRLINE LOUNGE Surgery [facility]ST ROMB MAIN OR [address] [place] [phone] Agustin Granda M.D., Ph.D. [address] [place] [phone] FATBACK TRIMMER shunt placement 07/20/2024 10:00 AM RECEPTIONIST AIRLINE LOUNGE Office Visit Department of Community Internal Medicine in [address] [phone] Laly Dickey MPAS, P.A.-C. [address] [place] [phone] 07/28/2024 8:30 AM RECEPTIONIST AIRLINE LOUNGE Appointment Department of Radiology in [place], [place] 300 [place] [phone] Laly Dickey MPAS, P.A.-C. [address] [place] [phone] Discharge Disposition: Home or Self Care Scheduled Procedures Name Priority Associated Diagnoses Date/Ti me IMPLANTATION SHUNT VENTRICULAR PERITONEAL Hydrocephalus Normal Pressure (HCC) 07/06/2024 7:24 PM RECEPTIONIST AIRLINE LOUNGE ARTHROPLASTY TOTAL REVERSE SHOULDER Fracture 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 documented as of this encounter Visit Diagnoses Diagnosis Hydrocephalus Normal Pressure (HCC)- Primary Pain Shoulder Right Hydrocephalus Normal Pressure (HCC) documented in this encounter Additional Health Concerns Assessment Noted Time PHQ-9 Depression Total Score: 5 02/14/20 24 9:00 AM CDT documented as of this encounter Care Teams Geological Science Teacher Relationship Specialty Start Date End Date Laly Dickey MPAS, P.A.-C. [address] [place] [address] [place] [phone] PCP - General Internal Medicine 07/28/22 documented as of this encounter
--- OUTSIDE RECORDS SUMMARY | 2024-06-20 16:36 | XMS_ITS | Encounter Summary ---
Author Organization [facility] Address [address] [place] [address] Care Team Providers Care Real Property Appraiser Name Role Phone Laly Dickey P.A.-CKavya Primary Care Pro vider Reason for Visit * Reason Onset Date Comments Med Question 06/12/2024 Encounter Details Date Type Department Care Team (Late st Contact Info) Description 06/12/2024 Clinical Communication Department of Community Internal Medicine in [place], [place] [address] [facility] [place] [phone] Laly Dickey MPAS P.A.-C. 300 [place] [phone] Med Question Social History Tobacco Use Types Packs/Day Years Used Date Smoking Tobacco: Former Cigarettes 2 30 0 11/13/1975 - 11/12/2005 Passive Smoke Exposure: Never Smokeless Tobacco: Never Alcohol Use Standard Drinks/Week Comments Not Currently 0 (1 standard drink = 0.6 oz pur e alcohol) [facility] Utilities Answer Date Recorded In [...] your living situation today? I have a [facility] place to live 02/14/2024 Comments No Sex and Gender Information Value Date Recorded Sex Assigned at Female 03/19/2023 10:10 AM CDT Legal Sex Female 1:31 PM MEDICAL AUTHORIZATION SPECIALIST Gender Identity Female 03/19/2023 10:10 AM CDT Sexual Orientation Not on file documented as of this encounter Miscellaneous Notes * Telephone Encounter - Hina Langston L.P.N. - 06/12/2024 2:50 PM MEDICAL AUTHORIZATION SPECIALIST SUBJECTIVE CHIEF COMPLAINT / REASON FOR CALL Med Question PLAN The following information was provided:notified Anna that per Bernadette at [facility] theyare allowed to only give one box of Ozempic per month, due to shortage and her script is going through the prior auth process currently Information/Education: patient/caller able to teach back The following references were used: other [facility] pharmacist/Berndaette CAL AUTHORIZATION SPECIALIST documented in this encounter Plan of Treatment Upcoming Encounters Date Type Department Care Team (Latest Contact Info) Description 06/21/2024 9:00 AM MEDICAL AUTHORIZATION SPECIALIST Appointment Department of Radiology in [place], [place] [address], [place] [phone] Laly Dickey MPAS, P.A.-C. [address] [place] [phone] 07/05/2024 9:30 AM MEDICAL AUTHORIZATION SPECIALIST Lab Department of Laboratory Medicine and Pathology, [facility], in [place], [place] [address] [place] [phone] Agustin Granda M.D., Ph.D. [address] [place] [phone] 07/05/2024 1:30 PM MEDICAL AUTHORIZATION SPECIALIST Comprehensive Visit Division of Trauma Critical Care and General Surgery in [place], [place] [address] [place] [phone] Agustin Granda M.D., Ph.D. [address] [place] [phone] 07/05/2024 3:00 PM MEDICAL AUTHORIZATION SPECIALIST Appointment Department of Neurology in [place], [place] [address] [place] [phone] Agustin Granda M.D., Ph.D. [address] [place] [phone] Discharge Disposition: Home or Self Care 07/06/2024 7:24 PM MEDICAL AUTHORIZATION SPECIALIST Hospital Encounter Post Anesthesia Care Unit in [place], [place] [address] [place] [phone] Agustin Granda M.D., Ph.D. [address] [place] [phone] 07/06/2024 7:24 PM MEDICAL AUTHORIZATION SPECIALIST - 07/06/2024 10:14 PM MEDICAL AUTHORIZATION SPECIALIST Surgery [facility]ST ROMB MAIN OR [address] [place] [phone] Agustin Granda M.D., Ph.D. [address] [place] [phone] PLATE TAKE OUT WORKER shunt placement 07/20/2024 10:00 AM MEDICAL AUTHORIZATION SPECIALIST Office Visit Department of Community Internal Medicine in [address] [phone] Laly Dickey MPAS, P.A.-C. [address] [place] [phone] 07/28/2024 8:30 AM MEDICAL AUTHORIZATION SPECIALIST Appointment Department of Radiology in [place], [place] 300 [place] [phone] Laly Dickey MPAS, P.A.-C. 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 [address] [place] [phone] PCP - General Internal Medicine 07/28/22 documented as of this encounter
--- OUTSIDE RECORDS SUMMARY | 2024-06-20 16:36 | XMS_ITS | Encounter Summary ---
Author Organization [facility] Address [address] [place] [address] Care Team Providers Care Biological Chemist Name Role Phone Laly Dickey P.A.-C. Primary Care Pro vider Encounter Details Date Type Department Care Team (Late st Contact Info) Description 06/13/2024 Clinical Communication Pharmacy Prior Auth [phone] Eli Baldwin I. Social History Tobacco Use Types Packs/Day Years Used Date Smoking Tobacco: Former Cigarettes 2 30 0 11/13/1975 - 11/12/2005 Passive Smoke Exposure: Never Smokeless Tobacco: Never Alcohol Use Standard Drinks/Week Comments Not Currently 0 (1 standard drink = 0.6 oz pur e alcohol) [facility] Utilities Answer Date Recorded In the past 12 months has e electric, gas, oil, or water [employer] threatened to shut off services in [...] your living situation today? I have a [facility] place to live 02/14/2024 Comments No Sex and Gender Information Value Date Recorded Sex Assigned at Female 03/19/2023 10:10 AM CDT Legal Sex Female 1:31 PM SUPERVISOR CURED MEATS Gender Identity Female 03/19/2023 10:10 AM CDT Sexual Orientation Not on file documented as of this encounter Plan of Treatment Upcoming Encounters Date Type Department Care Team (Latest Contact Info) Description 06/21/2024 9:00 AM SUPERVISOR CURED MEATS Appointment Department of Radiology in [place], [place] [address] [place] [phone] Laly Dickey MPAS, P.A.-C. [address] [place] [address] [place] [phone] 07/05/2024 9:30 AM SUPERVISOR CURED MEATS Lab Department of Laboratory Medicine and Pathology, [facility] in [place], [place] [address] [place] [phone] Agustin Granda M.D., Ph.D. [address] [place] [phone] 07/05/2024 1:30 PM SUPERVISOR CURED MEATS Comprehensive Visit Division of Trauma Critical Care and General Surgery in [address] [phone] Agustin Granda M.D., Ph.D. [address] [place] [phone] 07/05/2024 3:00 PM SUPERVISOR CURED MEATS Appointment Department of Neurology in [place], [place] [address] [place] [phone] Agustin Granda M.D., Ph.D. [address] [place] [phone] Discharge Disposition: Home or Self Care 07/06/2024 7:24 PM SUPERVISOR CURED MEATS Hospital Encounter Post Anesthesia Care Unit in [place] [address] [place] [phone] Agustin Granda M.D., Ph.D. [address] [place] [phone] 07/06/2024 7:24 PM SUPERVISOR CURED MEATS - 07/06/2024 10:14 PM SUPERVISOR CURED MEATS Surgery RST ROMB MAIN OR [facility] [place] [phone] Agustin Granda M.D., Ph.D. [address] [place] [phone] ADMITTING OFFICE ESCORT shunt placement 07/20/2024 10:00 AM SUPERVISOR CURED MEATS Office Visit Department of Community Internal Medicine in [place], [place] 300 [place] [phone] Laly Dickey MPAS, P.A.-C. [address] [place] [phone] 07/28/2024 8:30 AM SUPERVISOR CURED MEATS Appointment Department of Radiology in [place], [place] 300 [facility] [place] [phone] Laly Dickey MPAS, P.A.-C. 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 300 [facility] [place] [phone] PCP - General Internal Medicine 07/28/22 documented as of this encounter
--- OUTSIDE RECORDS SUMMARY | 2024-06-20 16:36 | XMS_ITS | Encounter Summary ---
Author Organization [facility] Address [address] [place] [address] Care Team Providers Care It Network Architect Name Role Phone Laly Dickey P.A.-CKavya Primary Care Pro vider Encounter Details Date Type Department Care Team (Latest Contact Info) Description 06/07/2024 7:41 AM OPTICAL LABORATORY MANAGER - 06/07/2024 11:59 PM [facility] Department of Laboratory Medicine in [place], [place] [address] [facility] [place] [phone] Laly Dickey MPAS P.A.-CKavya [address] [place] [phone] Diabetes Mellitus Type 2 With [...] drink = 0.6 oz pur e alcohol) [facility] Utilities Answer Date Recorded In the past 12 months has e electric, gas, oil, or water [employer] threatened to shut off services in your [...] your living situation today? I have a [facility] place to live 02/14/2024 Comments No Sex and Gender Information Value Date Recorded Sex Assigned at Female 03/19/2023 10:10 AM CDT Legal Sex Female 1:31 PM OPTICAL LABORATORY MANAGER Gender Identity Female 03/19/2023 10:10 AM CDT Sexual Orientation Not on file documented as of this encounter Medications at Time of Discharge albuterol 90 mcg/actuation inhaler Inhale 2 puffs every 4 (four) hours as needed for shortness of breath. 54 g 3 08/13/[address] tablet Take 81 mg by mouth at bedtime. 02/09/2022 BD Ultra-Fine Short Pen Needle 31 gauge x 16 needle USE DIRECTED 11/07/2022 cyclobenzaprine (FlexeriL) 10 [...] 3 08/30/2023 OneTouch Verio Reflect Meter misc APPLY 1 EACH TOPICALLY 1 each 03/07/2024 polyethylene glycol (MIRALAX) 17 gram/dose oral powder Take 1 packet by mouth as needed. 12/20/2019 Spiriva Respimat 2.5 mcg/actuation inhaler inhale 2 [...] MOUTH AT BEDTIME 270 tablet 3 02/24/2024 atorvastatin (LIPITOR) 80 mg tablet Take 1 tablet (80 mg total) by mouth daily. 90 tablet 3 08/03/2022 gabapentin (Neurontin) 300 mg capsule Take 1 capsule (300 mg total) by mouth 3 (three) times a day. 180 capsule 3 02/14/2024 HumaLOG KwikPen Insulin 100 unit/mL pen 24 U with each meal. Adjust as follows: < 120 - 2 U; 120-179 no adjustment; 180-239 + 2 U; 240-299 + 4 U; 300-359 + 6 U; 360-419 + 8 Units; if > or = 420 >= + 10 Units. 10 mL 3 01/12/2024 5 Levemir FlexPen 100 unit/mL (3 mL) pen ADMINISTER 32 UNITS UNDER THE SKIN TWICE DAILY 60 mL 3 01/19/2024 5 Kanchuf[place]uch Verio test strips 3 test See Admin Instructions. 270 strip 3 09/13/2023 semaglutide (Ozempic) 1 mg/dose (4 mg/3 mL) injection Inject 1 mg under the skin every 7 (seven) days. 9 mL 3 01/04/2024 5 traMADoL (Ultram) 50 mg tabletIndication s:Chronic Pain/Nonacute Pain Take 1 tablet (50 mg total) by mouth at bedtime as needed for pain Indications: Chronic Pain/Nonacute Pain. 28 tablet 05/09/2024 5 traMADoL (Ultram) 50 mg tabletIndication s:Chronic Pain/Nonacute Pain Take 1 tablet (50 mg total) by mouth at bedtime as needed for pain Indications: Chronic Pain/Nonacute Pain. 28 tablet 06/09/2024 documented as of this encounter Plan of Treatment Upcoming Encounters Date Type Department Care Team (Latest Contact Info) Description 06/21/2024 9:00 AM OPTICAL LABORATORY MANAGER Appointment Department of Radiology in [place], [place] [address] [place] [phone] Laly Dickey, FRANCINES, P.A.-C. [address] [place] [phone] 07/05/2024 9:30 AM OPTICAL LABORATORY MANAGER Lab Department of Laboratory Medicine and Pathology, [facility] in [place], [place] [address] [place] [phone] Agustin Granda M.D., Ph.D. [address] [place] [phone] 07/05/2024 1:30 PM OPTICAL LABORATORY MANAGER Comprehensive Visit Division of Trauma Critical Care and General Surgery in [address] [phone] Agustin Granda M.D., Ph.D. [address] [place] [phone] 07/05/2024 3:00 PM OPTICAL LABORATORY MANAGER Appointment Department of Neurology in [place], [place] [address] [place] [phone] Agustin Granda M.D., Ph.D. [address] [place] [phone] Discharge Disposition: Home or Self Care 07/06/2024 7:24 PM OPTICAL LABORATORY MANAGER Hospital Encounter Post Anesthesia Care Unit in [address] [phone] Agustin Granda M.D., Ph.D. [address] [place] [phone] 07/06/2024 7:24 PM OPTICAL LABORATORY MANAGER - 07/06/2024 10:14 PM OPTICAL LABORATORY MANAGER Surgery RST ROMB MAIN OR [address] [place] [phone] Agustin Granda M.D., Ph.D. [address] [place] [phone] INSTRUMENT ASSEMBLER shunt placement 07/20/2024 10:00 AM OPTICAL LABORATORY MANAGER Office Visit Department of Community Internal Medicine in [address] [phone] Laly Dickey MPAS, P.A.-C. [address] [place] [phone] 07/28/2024 8:30 AM OPTICAL LABORATORY MANAGER Appointment Department of Radiology in [place], [place] [address] [place] [phone] Laly Dickey MPAS, P.A.-C. 300 [place] [phone] Discharge Disposition: Home or Self Care Scheduled Procedures Name Priority Associated Diagnoses Date/Ti me IMPLANTATION SHUNT VENTRICULAR PERITONEAL Hydrocephalus Normal Pressure (HCC) 07/06/2024 7:24 PM OPTICAL LABORATORY MANAGER ARTHROPLASTY TOTAL REVERSE SHOULDER Fracture 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 documented as of this encounter Procedures Procedure Name Priority Date/Time Associated Diagnosis Comments LIPID PANEL, S Routine 06/07/2024 8:02 AM OPTICAL LABORATORY MANAGER Diabetes Mellitus Type 2 With Diabetic Polyneuropathy (HCC) VITAMIN D, IMMUNOASSAY, TOTAL, S Routine 06/07/2024 8:02 AM OPTICAL LABORATORY MANAGER Chronic Kidney Disease (CKD), Stage 3b Glomerular Filtration Rate (GFR) 30 To 44 (HCC) CBC WITH DIFFERENTIAL, B Routine 06/07/2024 8:02 AM OPTICAL LABORATORY MANAGER Chronic Kidney Disease (CKD), Stage 3b Glomerular Filtration Rate (GFR) 30 To 44 (HCC) PHOSPHORUS (INORGANIC), S Routine 06/07/2024 8:02 AM OPTICAL LABORATORY MANAGER Chronic Kidney Disease (CKD), Stage 3b Glomerular Filtration Rate (GFR) 30 To 44 (HCC) PARATHYROID HORMONE (PTH), S Routine 06/07/2024 8:02 AM OPTICAL LABORATORY MANAGER Chronic Kidney Disease (CKD), Stage 3b Glomerular Filtration Rate (GFR) 30 To 44 (HCC) HEMOGLOBIN A1C, B Routine 06/07/2024 8:0 2 AM OPTICAL LABORATORY MANAGER Diabetes Mellitus Type 2 With Diabetic Polyneuropathy (HCC) BASIC METABOLIC PANEL, S/P Routine 06/07/2024 8:02 AM OPTICAL LABORATORY MANAGER Chronic Kidney Disease (CKD), Stage 3b Glomerular Filtration Rate (GFR) 30 To 44 (HCC) ALBUMIN, RANDOM, U Routine 06/07/2024 8: 00 AM OPTICAL LABORATORY MANAGER Diabetes Mellitus Type 2 With Diabetic Polyneuropathy (HCC) documented in this encounter Results * Phosphorus Inorganic (06/07/2024 8:02 AM OPTICAL LABORATORY MANAGER) Pathologist [facility] Phosphorus (Inorganic), P 3.3 2.5 - 4.5 mg/dL 06/07/2024 4:00 PM OPTICAL LABORATORY MANAGER AUST Blood (Blood, Venous) 06/07/2024 8:02 AM OPTICAL LABORATORY MANAGER 06/07/2024 3:36 PM OPTICAL LABORATORY MANAGER us Laly LAKHANI, P.A.-C. LAB BLOOD ADD-ON Final Result [facility] [address] [place] [address], [facility] AUST [facility] [address] [place] [address] * Vitamin D, Immunoassay, Total, Serum (06/07/2024 8:02 AM OPTICAL LABORATORY MANAGER) Vitamin D, Immunoassay, Total, S 40 20 - 80 ng/mL 06/07/2024 8:05 PM OPTICAL LABORATORY MANAGER MKTO Comment: Optimum levels within the healthy population are 20-50, patients with bone disease may benefit from high levels within this range Blood (Blood, Venous) 06/07/2024 8:02 AM OPTICAL LABORATORY MANAGER 06/07/2024 7:21 PM OPTICAL LABORATORY MANAGER [facility] LAKHANI, P.A.-C. LAB BLOOD ADD-ON Final Result Performing Organization Address City/[facility]/ZIP Co de Phone Number [facility] [address] [place] [phone], [facility] in [place] [address] [place] [phone] * (ABNORMAL) Parathyroid Hormone (PTH) (06/07/2024 8:02 AM OPTICAL LABORATORY MANAGER) Pathologist [facility] Parathyroid Hormone (PTH), S 103(H) 15 - 65 pg/mL 06/07/2024 3:55 PM OPTICAL LABORATORY MANAGER AUST Comment: Biotin has been identified by the testing and regulating chief as a potential interfering substance. Higher concentrations of biotin may be found in multivitamins, hair/nail supplements, and workout supplements. If the result does not match clinical observations, repeat testing after patient refrains from the use of supplements for at least 12 hours. Blood (Blood, Venous) 06/07/2024 8:02 AM OPTICAL LABORATORY MANAGER 06/07/2024 3:36 PM OPTICAL LABORATORY MANAGER Laly LAKHANI, P.A.-C. LAB BLOOD ADD-ON Final Result Performing Organization Address City/[facility]/ZIP Co de Phone Number [facility] [address] [place] [address], [place] AUST [facility] [address] [place] [address] * (ABNORMAL) CBC with Differential, Blood (06/07/2024 8:02 AM OPTICAL LABORATORY MANAGER) Pathologist [facility] Hemoglobin 12.9 11.6 - 15.0 g/dL 06/07/2024 8:20 AM OPTICAL LABORATORY MANAGER FB60 Hematocrit 38.5 35.5 - 44.9 % 06/07/2024 8:20 AM OPTICAL LABORATORY MANAGER FB60 Erythrocytes 4.21 3.92 - 5.13 x10(12)/L 06/07/2024 8:20 AM OPTICAL LABORATORY MANAGER FB60 MCV 91.4 78.2 - 97.9 fL 06/07/2024 8:20 AM OPTICAL LABORATORY MANAGER FB60 RBC Distrib Width 12.4 12.2 - 16.1 % 06/07/2024 8:20 AM OPTICAL LABORATORY MANAGER FB60 Platelet Count 347 157 - 371 x10(9)/L 06/07/2024 8:20 AM OPTICAL LABORATORY MANAGER FB60 Leukocytes 9.7(H) 3.4 - 9.6 x10(9)/L 06/07/2024 8:20 AM OPTICAL LABORATORY MANAGER FB60 Neutrophils 6.13 1.56 - 6.45 x10(9)/L 06/07/2024 8:20 AM OPTICAL LABORATORY MANAGER FB60 Lymphocytes 2.51 0.95 - 3.07 x10(9)/L 06/07/2024 8:20 AM OPTICAL LABORATORY MANAGER FB60 Monocytes 0.71 0.26 - 0.81 x10(9)/L 06/07/2024 8:20 AM OPTICAL LABORATORY MANAGER FB60 Eosinophils 0.31 0.03 - 0.48 x10(9)/L 06/07/2024 8:20 AM OPTICAL LABORATORY MANAGER FB60 Basophils 0.05 0.01 - 0.08 x10(9)/L 06/07/2024 8:20 AM OPTICAL LABORATORY MANAGER FB60 Blood (Blood, Venous) 06/07/2024 8:02 AM OPTICAL LABORATORY MANAGER 06/07/2024 8:20 AM OPTICAL LABORATORY MANAGER us Laly LAKHANI, P.A.-C. LAB BLOOD ADD-ON Final Result [facility] [address] [place] [address], [place] FB60 [facility] [place] [address] [place] [address] * (ABNORMAL) Lipid Panel (06/07/2024 8:02 AM OPTICAL LABORATORY MANAGER) Triglycerides 246(H) mg/dL 06/07/2024 4:47 PM OPTICAL LABORATORY MANAGER OWAT Comment: ----REFERENCE VALUE---- Normal: <150 mg/dL Borderline High: 150-199 mg/dL High: 200-499 mg/dL Very High: > or =500 mg/dL Cholesterol, Total 326(H) mg/dL 2024 4:47 PM OPTICAL LABORATORY MANAGER OWAT Comment: ----REFERENCE VALUE---- Desirable: < 200 mg/dL Borderline High: 200 - 239 mg/dL High: > or = 240 mg/dL Cholesterol, LDL, Calculated 232(H) mg/dL 06/07/2024 4:47 PM OPTICAL LABORATORY MANAGER OWAT Comment: The markedly elevated LDL [...] HDL 44(L) >=50 mg/dL 06/07/2024 4:47 PM OPTICAL LABORATORY MANAGER OWAT Cholesterol, Non-HDL, Calculated 282(H) mg/dL 06/07/2024 4:47 PM OPTICAL LABORATORY MANAGER OWAT Comment: ----REFERENCE VALUE---- Desirable: <130 mg/dL Above Desirable: 130-159 mg/dL Borderline High: 160-189 mg/dL High: 190-219 mg/dL Very High: > or =220 mg/dL Fasting (8 HR or more) Yes 8:02 AM OPTICAL LABORATORY MANAGER OWAT Blood (Blood, Venous) 06/07/2024 8:02 AM OPTICAL LABORATORY MANAGER 06/07/2024 12:58 PM OPTICAL LABORATORY MANAGER us Laly LAKHANI, P.A.-C. LAB BLOOD ADD-ON Final Result [facility] [address] [place] [address], [facility] OWAT [facility] [place] [address] [place] [address] * (ABNORMAL) Basic Metabolic Panel (06/07/2024 8:02 AM OPTICAL LABORATORY MANAGER) Potassium, P 4.4 3.6 - 5.2 mmol/L 06/07/2024 4:47 PM OPTICAL LABORATORY MANAGER OWAT Sodium, P 142 135 - 145 mmol/L 06/07/2024 4:47 PM OPTICAL LABORATORY MANAGER OWAT Chloride, P 100 98 - 107 mmol/L 06/07/2024 4:47 PM OPTICAL LABORATORY MANAGER OWAT Bicarbonate, P 25 22 - 29 mmol/L 06/07/2024 4:47 PM OPTICAL LABORATORY MANAGER OWAT Anion Gap, P 17(H) 7 - 15 06/07/2024 4:47 PM OPTICAL LABORATORY MANAGER OWAT BUN (Blood Urea Nitrogen), P 30(H) 6 - 21 mg/dL 06/07/2024 4:47 PM OPTICAL LABORATORY MANAGER OWAT Creatinine 1.97(H) 0.59 - 1.04 mg/dL 06/07/2024 4:47 PM OPTICAL LABORATORY MANAGER OWAT Estimated GFR (eGFR) 27(L) >=60 mL/min/BSA 06/07/2024 4:47 PM OPTICAL LABORATORY MANAGER OWAT Comment: Estimated GFR calculated using the 2020 CKD_EPI creatinine equation. Calcium, Total, P 9.1 8.8 - 10.2 mg/dL 06/07/2024 4:47 PM OPTICAL LABORATORY MANAGER OWAT Glucose, P 144(H) 70 - 140 mg/dL 06/07/2024 4:47 PM OPTICAL LABORATORY MANAGER OWAT Blood (Blood, Venous) 06/07/2024 8:02 AM OPTICAL LABORATORY MANAGER 06/07/2024 12:58 PM OPTICAL LABORATORY MANAGER us Laly LAKHANI, P.A.-C. LAB BLOOD ADD-ON Final Result [facility] [address] [place] [address], [place] OWAT [facility] [place] [address] [place] [address] * (ABNORMAL) Hemoglobin A1c (06/07/2024 8:02 AM OPTICAL LABORATORY MANAGER) Hemoglobin A1c, B 5.9(H) 4.2 - 5.6 % 06/07/2024 3:15 PM OPTICAL LABORATORY MANAGER OWAT Comment: Hemoglobin A1c values of 5.7-6.4 percent indicate an increased risk for developing diabetes mellitus. In diabetic patients, HbA1c goals should be discussed with healthcare provider. Blood (Blood, Venous) 06/07/2024 8:02 AM OPTICAL LABORATORY MANAGER 06/07/2024 12:58 PM OPTICAL LABORATORY MANAGER us Laly LAKHANI, P.A.-C. LAB BLOOD ADD-ON Final Result Performing Organization Address [place]/[facility] Co de Phone Number [facility] [address] [place] [address], [facility] OWAT [facility] [address], [place] [address] * Albumin, Random, Urine (06/07/2024 8:00 AM OPTICAL LABORATORY MANAGER) Microalbumin <12.0 mg/L 06/07/2024 3:12 PM OPTICAL LABORATORY MANAGER OWAT Comment:If clinically indica jim, contact the lab for additional testing. Creatinine 90 mg/dL 06/07/2024 3:12 PM OPTICAL LABORATORY MANAGER OWAT Albumin/Creatinine Ratio <13 <25 mg/g 06/07/2024 3:12 PM OPTICAL LABORATORY MANAGER OWAT Comment: This ratio may not correspond with the reference range because one or both of the values used to calculate the ratio was above or below the quantification limits. Urine (Urine, Midstream) 06/07/2024 8:00 AM OPTICAL LABORATORY MANAGER 06/07/2024 12:57 PM OPTICAL LABORATORY MANAGER us Laly LAKHANI, P.A.-C. LAB URINE ORDERAB LES Final Result Performing Organization Address [place]/[facility] Co de Phone Number [facility] [address] [place] [address], [facility] OWAT [facility] [place] [address] [place] [address] documented in this encounter Visit Diagnoses Diagnosis Hydrocephalus Normal Pressure (HCC)- Primary Diabetes Mellitus Type 2 With Diabetic Polyneuropathy (HCC) Chronic Kidney Disease (CKD), Stage 3b Glomerular Filtration Rate (GFR) 30 To 44 (HCC) Hydrocephalus Normal Pressure (HCC) documented in this encounter Additional Health Concerns Assessment Noted Time PHQ-9 Depression Total Score: 5 02/14/20 24 9:00 AM CDT documented as of this encounter Care Teams It Network Architect Relationship Specialty Start Date End Date Laly Dickey MPAS, P.A.-C. [address] [place] [phone] PCP - General Internal Medicine 07/28/22 documented as of this encounter
--- OUTSIDE RECORDS SUMMARY | 2024-06-20 16:36 | XMS_ITS | Encounter Summary ---
Author Organization [facility] Address [address] [place] [address] Care Team Providers Care Diesel Truck Crane Operator Name Role Phone Laly Dickey P.A.-CKavya Primary Care Pro vider Reason for Visit * Reason Comments Med Refill Encounter Details Date Type Department Care Team (Late st Contact Info) Description 05/21/2024 Refill Department of Community Internal Medicine in [place], [place] [address] [facility] [place] [phone] Laly Dickey MPAS P.A.-C. 300 [place] [phone] Med Refill Social History Tobacco Use Types Packs/Day Years Used Date Smoking Tobacco: Former Cigarettes 2 30 0 11/13/1975 - 11/12/2005 Passive Smoke Exposure: Never Smokeless Tobacco: Never Alcohol Use Standard Drinks/Week Comments Not Currently 0 (1 standard drink = 0.6 oz pur e alcohol) [facility] Utilities Answer Date Recorded In the past 12 months has e [employer], gas, oil, or water [employer] threatened to shut off services in your [...] your living situation today? I have a [facility] place to live 02/14/2024 Comments No Sex and Gender Information Value Date Recorded Sex Assigned at Female 03/19/2023 10:10 AM CDT Legal Sex Female 1:31 PM OCCUPATIONAL HEALTH COORDINATOR Gender Identity Female 03/19/2023 10:10 AM CDT Sexual Orientation Not on file documented as of this encounter Plan of Treatment Upcoming Encounters Date Type Department Care Team (Latest Contact Info) Description 06/21/2024 9:00 AM OCCUPATIONAL HEALTH COORDINATOR Appointment Department of Radiology in [place], [place] [address] [place] [phone] Laly Dickey MPAS, P.A.-C. [address] [place] [phone] 07/05/2024 9:30 AM OCCUPATIONAL HEALTH COORDINATOR Lab Department of Laboratory Medicine and Pathology, [facility] in [place], [place] [address] [place] [phone] Agustin Granda M.D., Ph.D. [address] [place] [phone] 07/05/2024 1:30 PM OCCUPATIONAL HEALTH COORDINATOR Comprehensive Visit Division of Trauma Critical Care and General Surgery in [place], [place] [address] [place] [phone] Agustin Granda M.D., Ph.D. [address] [place] [phone] 07/05/2024 3:00 PM OCCUPATIONAL HEALTH COORDINATOR Appointment Department of Neurology in [place], [place] [address] [place] [phone] Agustin Granda M.D., Ph.D. [address] [place] [phone] Discharge Disposition: Home or Self Care 07/06/2024 7:24 PM OCCUPATIONAL HEALTH COORDINATOR Hospital Encounter Post Anesthesia Care Unit in [place], [place] [address] [place] [phone] Agustin Granda M.D., Ph.D. [address] [place] [phone] 07/06/2024 7:24 PM OCCUPATIONAL HEALTH COORDINATOR - 07/06/2024 10:14 PM OCCUPATIONAL HEALTH COORDINATOR Surgery RST ROMB MAIN OR [address] [place] [phone] Agustin Granda M.D., Ph.D. [address] [place] [phone] CUTTER GRINDER shunt placement 07/20/2024 10:00 AM OCCUPATIONAL HEALTH COORDINATOR Office Visit Department of Community Internal Medicine in [place], [place] 300 [place] [phone] Laly Dickey MPAS, P.A.-C. [address] [place] [phone] 07/28/2024 8:30 AM OCCUPATIONAL HEALTH COORDINATOR Appointment Department of Radiology in [place], [place] [address] [place] [phone] Laly Dickey MPAS, P.A.-C. [address] [place] [phone] Discharge Disposition: Home or Self Care Scheduled Procedures Name Priority Associated Diagnoses Date/Ti me IMPLANTATION SHUNT VENTRICULAR PERITONEAL Hydrocephalus Normal Pressure (HCC) 07/06/2024 7:24 PM OCCUPATIONAL HEALTH COORDINATOR ARTHROPLASTY TOTAL REVERSE SHOULDER Fracture 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 documented as of this encounter Visit Diagnoses Not on filedocumented in this encounter Additional Health Concerns Assessment Noted Time PHQ-9 Depression Total Score: 5 02/14/20 24 9:00 AM CDT documented as of this encounter Care Teams Diesel Truck Crane Operator Relationship Specialty Start Date End Date Laly Dickey MPAS, P.A.-C. [address] [place] [phone] PCP - General Internal Medicine 07/28/22 documented as of this encounter
--- OUTSIDE RECORDS SUMMARY | 2024-06-20 16:36 | XMS_ITS | Encounter Summary ---
Author Organization [facility] Address [address] [place] [address] Care Team Providers Care Hosting Engineer Name Role Phone Laly Dickey P.A.-C. Primary Care Pro vider Reason for Referral * Outpatient (Routine) - Closed Specialty Diagnoses / Procedures Referred By Nemo t Referred To Contact [facility] Internal Medicine Laly Dickey MPAS, P.A.-CKavya [address] [place] [address] Phone: tel: fax: [facility] Region Referral ID Status Reason Start Date Expiration Date Visits Re quested Visits Authorized [id number] Closed 06/14/2024 12/14/2025 1 1 ET AIRCRAFT TECHNICIAN * Outpatient (Routine) - Authorized Specialty Diagnoses / Procedures Referred By Contac t Referred To Contact [facility] Internal Medicine Laly Dickey MPAS, P.AKavya-CKavya [address] [place] [address] Phone: tel: fax: [facility] Region Referral ID Status Reason Start Date Expiration Date V isits Requested Visits Authorized [id number] Authorized 06/14/2024 12/14/2025 1 1 ET AIRCRAFT TECHNICIAN * Outpatient (Routine) - Authorized Specialty Diagnoses / Procedures Referred By Nemo morales Referred To Contact [facility] Laly Dickey MPAS, P.A.-CKavya [address] [place] [address] Phone: tel: fax: [facility] Region Referral ID Status Reason Start Date Expiration Date V isits Requested Visits Authorized [id number] Authorized 06/14/2024 12/14/2025 1 1 ET AIRCRAFT TECHNICIAN Reason for Visit * Reason Comments Follow-up Labs, has concerns a bout her medications, also is having surgery on her brain Jul 06, 2024 * Outpatient (Routine) - Closed Specialty Diagnoses / Procedures Referred By Nemo morales Referred To Contact [facility] Laly Dickey MPAS, Cristobal.A.-CKavya [address] [place] [address] Phone: tel: fax: [facility] Region Referral ID Status Reason Start Date Expiration Date Visits Re quested Visits Authorized [id number] Closed 03/21/2024 09/20/2025 1 1 Encounter Details Date Type Department Care Team (Latest Contact Info) Description 06/14/2024 8:40 AM TARGET AIRCRAFT TECHNICIAN Office Visit Department of [facility] Internal Medicine in [place], [place] [address] [place] [phone] Laly Dickey MPAS, P.A.-CKavya [address] [place] [phone] Obesity Body Mass Index 30-39.9 Adult (Primary [...] (HCC); Anxiety Generalized Disorder; History Of Falling Social History Tobacco Use Types Packs/Day Years Used Date Smoking Tobacco: Former Cigarettes 2 30 0 11/13/1975 - 11/12/2005 Passive Smoke Exposure: Past Smokeless Tobacco: Never Alcohol Use Standard Drinks/Week Comments Not Currently 0 (1 standard drink = 0.6 oz pur e alcohol) [facility] Utilities Answer Date Recorded In the past 12 months has th e Pricing Engine, gas, oil, or water [employer] threatened to shut off services in your [...] your living situation today? I have a [facility] place to live 02/14/2024 Comments No Sex and Gender Information Value Date Recorded Sex Assigned at Female 03/19/2023 10:10 AM CDT Legal Sex Female 1:31 PM TARGET AIRCRAFT TECHNICIAN Gender Identity Female 03/19/2023 10:10 AM CDT Sexual Orientation Not on file documented as of this encounter Last Filed Vital Signs Vital Sign Reading Time Taken Comments Blood Pressure 123/72 06/14/2024 8:14 AM TARGET AIRCRAFT TECHNICIAN Pulse 88 06/14/2024 8:14 AM TARGET AIRCRAFT TECHNICIAN Temperature 36.4 C (97.5 F) 06/14/2024 8:14 AM TARGET AIRCRAFT TECHNICIAN Respiratory Rate 20 06/14/2024 8:14 AM TARGET AIRCRAFT TECHNICIAN Oxygen Saturation - - Inhaled Oxygen Concentration - - Weight 107 kg (236 lb) 06/14/2024 8:14 AM TARGET AIRCRAFT TECHNICIAN Height 171 cm (5' 7.32) 06/14/2024 8:14 AM TARGET AIRCRAFT TECHNICIAN Body Mass Index 36.61 06/14/2024 8:14 AM TARGET AIRCRAFT TECHNICIAN documented in this encounter Patient Instructions * Patient Instructions* Laly Dickey MPAS, P.A.-C. - 06/14/2024 8:40 AM TARGET AIRCRAFT TECHNICIAN Resume Lipitor. I have sent 80 mg tablets to your pharmacy. Cut tablets in half for 2 weeks. Then, resume full tablet. ET AIRCRAFT TECHNICIAN documented in this encounter Progress Notes * Laly Dickey MPAS, [place]. - 06/14/2024 8:40 AM CST SUBJECTIVE CHIEF COMPLAINT/REASON FOR VISIT Chief Complaint Patient presents with Follow-up Labs, has concerns about her medications, also is having surgery on her brain Jul 06, 2024 HISTORY OF PRESENT ILLNESS Anna Ortega is a pleasant 69 y.o. female with a past medical history of diabetes mellitus type 2 and chronic kidney disease stage 4 who presents to the clinic today for lab result review and follow-up. Since our last visit, she has met with Neurological Surgery to discuss shunt placement fornormal pressure hydrocephalus. She is planning to undergo this procedure which is already scheduledin about 3 weeks. She has quite a bit of anxiety surrounding this procedure. She is wondering aboutan as needed anxiety medication. Anxiety is currently managed on daily Effexor. She also expresses some frustration with difficulty refilling her Ozempic prescription. She wonders about a dose increase in Ozempic. She admits she has not taken any of her Humalog or Levemir insulin in at least 6 weeks. She reports low blood sugar 1 time per week ranging from 70-90 which causes her to feel dizzy. This typically happens before dinner. In follow-up to chronic low back pain, she has decreased use of NSAID medications but continues to take ibuprofen 400 mg every 6 hours PRN. She understands that ibuprofen is harmful to her kidneys as we have discussed this previously. She does not wish to pursue MRI of lumbar spine at this time as previously discussed as she would like to get upcoming brain surgery completed first. She finds Flexeril effective. She continues to have right leg numbness which has improved with gabapentin 300 mg TID. She does endorse feeling dizzy and drowsy and fell 1 week agodue to dizziness. She would also like to receive COVID vaccine today. The following portions of the patient's history were reviewed and updated as appropriate: current medications and problem list. Patient Active Problem List Diagnosis Hyperlipidemia Mixed Venous Insufficiency Chronic Peripheral Obesity Body Mass Index 30-39.9 Adult Nodule Pulmonary Solitary Anxiety Generalized Disorder Diabetes Mellitus Type 2 With Diabetic Polyneuropathy (HCC) Gastroesophageal Reflux Disease Without Esophagitis Chronic Obstructive Pulmonary Disease (HCC) Hypertensive Chronic Kidney Disease With Stage 1 Through Stage 4 Chronic Kidney Disease, Or Unspecified Chronic Kidney Disease Chronic Diastolic (Congestive) Heart Failure (HCC) Apnea Sleep Obstructive Fracture 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 Pain Low Back Chronic History Of Falling Chronic Kidney Disease (CKD), Stage 3b Glomerular Filtration Rate (GFR) 30 To 44 ([facility]) Insomnia Migraine Headache Personal History Of Nicotine Dependence Hydrocephalus Normal Pressure ([facility]) ALLERGIES/CONTRAINDICATIONS Allergies Allergen Reactions Adhesives [Adhesive] Hives (Reselect Reaction) and Rash Blisters Penicillin Hives (Reselect Reaction) Hospitalized Metformin Other (see comments) GI intolerance CURRENT MEDICATIONS Current Outpatient Medications: albuterol 90 mcg/actuation inhaler, Inhale 2 puffs every 4 (four) hours as needed for shortness of breath., Disp: 54 g, Rfl: 3 amitriptyline (ElaviL) 50 mg tablet, TAKE 3 TABLETS(150 MG) BY MOUTH AT BEDTIME, Disp: 270 tablet, Rfl: [address] tablet, Take 81 mg by mouth at bedtime., Disp: , Rfl: atorvastatin (Lipitor) 80 mg tablet, Take 1 tablet (80 mg total) by mouth daily., Disp: 90 tablet, Rfl: 3 BD Ultra-Fine Short Pen Needle 31 gauge x 5/16 needle, USE DIRECTED, Disp: , Rfl: cyclobenzaprine (FlexeriL) 10 mg tablet, TAKE 1 TABLET(10 MG) BY MOUTH THREE TIMES DAILY NEEDED FOR MUSCLE SPASMS, Disp: 90 tablet, Rfl: 1 diclofenac sodium (Voltaren) 1 % gel, Apply 4 g topically 4 (four) times a day as needed (Pain). Apply to right shoulder., Disp: 200 g, Rfl: 3 ezetimibe (Zetia) 10 mg tablet, Take 1 tablet (10 mg total) by mouth daily. Patient needs Labs for further refills., Disp: 90 tablet, Rfl: 3 gabapentin (Neurontin) 300 mg capsule, Take 1 capsule (300 mg total) by mouth 3 (three) times a day., Disp: 180 capsule, Rfl: 3 ipratropium-albuteroL (DUONEB) 0.5-2.5 mg/3 mL nebulizer solution, Inhale 3 mL by nebulization 4 (four) times a day as needed for wheezing or shortness of breath., Disp: 90 mL, Rfl: 0 losartan (Cozaar) 50 mg tablet, TAKE 1 TABLET(50 MG) BY MOUTH DAILY, Disp: 90 tablet, Rfl: 3 multivit with minerals/lutein (MULTIVITAMIN 50 PLUS ORAL), Take 1 tablet by mouth daily., Disp: , Rfl: omeprazole (PriLOSEC) [address] capsule, Take 1 capsule (40 mg total) by mouth 2 (two) times a day before breakfast and dinner., Disp: 180 capsule, Rfl: 3 OneTouch Verio Reflect Meter misc, APPLY 1 EACH TOPICALLY, Disp: 1 each, Rfl: 0 OneTouch Verio test strips, 3 test See Admin Instructions., Disp: 270 strip, Rfl: 3 polyethylene glycol (MIRALAX) 17 gram/dose oral powder, Take 1 packet by mouth as needed., Disp: , Rfl: semaglutide (Ozempic) 1 mg/dose (4 mg/3 mL) injection, Inject 1 mg under the skin every 7 (seven) days., Disp: 9 mL, Rfl: 3 Spiriva Respimat 2.5 mcg/actuation inhaler, inhale 2 puffs by mouth daily, Disp: 12 g, Rfl: 3 torsemide (Demadex) 20 mg tablet, TAKE 4 TABLETS(80 MG) BY MOUTH DAILY, Disp: 360 tablet, Rfl: 3 traMADoL (Ultram) 50 mg tablet, Take 1 tablet (50 mg total) by mouth at bedtime as needed for pain Indications: Chronic Pain/Nonacute Pain., Disp: 28 tablet, Rfl: 0 venlafaxine XR (EFFEXOR-XR) 150 mg 24 hr capsule, TAKE 1 CAPSULE(150 MG) BY MOUTH DAILY, Disp: 90 capsule, Rfl: 3 semaglutide (Ozempic) 2 mg/dose (8 mg/3 mL) injection, Inject 2 mg under the skin every 7 (seven) days., Disp: 3 mL, Rfl: 11 OBJECTIVE VITAL SIGNS Vitals: 06/14/24 0814 BP: 123/72 Pulse: 88 Resp: 20 Temp: 36.4 ??C PHYSICAL EXAMINATION General: Well-nourished, well-developed 69 y.o. in no apparent distress. Awake, alert, age appropriate. Cardiovascular: Regular rate and rhythm without murmurs. Lungs: Clear to auscultation bilaterally with no adventitious sounds Extremities: 1+ edema bilaterally. ASSESSMENT / PLAN IMPRESSION/REPORT/PLAN: #1 Hydrocephalus Normal Pressure (HCC) She has upcoming FINANCIAL SERVICES REP shunt placement scheduled. She is not currently scheduled for a preanesthetic medical exam. Patient does not believe she has been told she needs this. I have reached out to her surgery team to clarify if this is needed as we would want to get this set up for the patient. #2 Diabetes Mellitus Type 2 With Diabetic Polyneuropathy (HCC) #3 Obesity Body Mass Index 30-39.9 Adult Her most recent hemoglobin A1c is 5.9%. She reportedly tapered herself off of insulin so I removed both Humalog and Levemir from her medication list today. After discussion, we will increase Ozempic from 1 mg weekly to 2 mg weekly for weight loss benefit as patient's current BMI is elevated at 36. I encouraged her to remain physically active as able although she is limited due to chronic low backpain. New prescription sent to pharmacy. We will check a hemoglobin A1c in 6 months. Ordered. - Basic Metabolic Panel; Future; Expected date: 06/14/2024 #4 Hyperlipidemia Mixed We reviewed her lipid panel today which shows significant elevation in cholesterol. After discussion with the patient, she has not been taking atorvastatin for quite some time. It seems this medication did not get renewed through her pharmacy. Rather than starting atorvastatin 80 mg daily, I would l marlys her to cut this in half for dose of 40 mg daily for 2 weeks followed by dose increase to full dose of 80 mg daily thereafter to alleviate side effects. Medication has been sent to her pharmacy. She will continue Zetia 10 mg daily. I have ordered a lipid panel in 3 months. - Lipid Panel; Future; Expected date: 09/12/2024 #5 Pain Low Back Chronic #6 Chronic Kidney Disease (CKD), Stage 3b Glomerular Filtration Rate (GFR) 30 To 44 (HCC) She has chronic low back pain associated with right leg numbness (see previous clinic notes) currently managed with NSAIDs. I again stressed the importance of eliminating NSAID use. Her creatine is elevated above her baseline on lab draw last week, we will re-check Cr today. I recommend MRI of lumbar spine as patient maybe a candidate for spinal injections for pain management which would help alleviate NSAID use. She defers MRI for now until after above FINANCIAL SERVICES REP shunt placement. No evidence of anemiadue to CKD. PTH elevated but vitamin-D and phosphorus are within the normal range. We may need to adjust gabapentin based on renal function today. - Basic Metabolic Panel; Future; Expected date: 09/12/2024 #7 Hypertensive Chronic Kidney Disease With Stage 1 Through Stage 4 Chronic Kidney Disease, Or Unspecified Chronic Kidney Disease Blood pressure is well managed on her current regimen. Continue losartan 50 mg daily. #8 Chronic Obstructive Pulmonary Disease (HCC) This seems to be well managed on Spiriva Respimat. Continue current plan. #9 Chronic Diastolic (Congestive) Heart Failure (HCC) Continue torsemide 80 mg daily. #10 Anxiety Generalized Disorder We had a long discussion about anxiety. I do not have any as needed medications that I would recommend. I would like to avoid benzodiazepine use and feel side effect profile of hydroxyzine is poor in her case as she already struggles with cognitive dysfunction, dizziness, and drowsiness. I offered a dose increase in Effexor which she is not much interested in at this time. #11 History Of Falling Recent fall 1 week ago due to dizziness, certainly may have been side effect profile of medicationssuch as gabapentin, amitriptyline, tramadol, and flexeril. Continue to monitor and revisit risk/benefit discussion and indication for these prescriptions. Additionally, consider the possibility of gait disturbance/imbalance due to NPH as potential contributing factor to fall. #12 Need Vaccine Immunization She would like to decline COVID vaccine until after above surgery. I recommended RSV vaccine at local pharmacy. Other orders - [facility] office visit (clinic) - OneTouch Verio test strips; 3 test See Admin Instructions., Starting Wed06/14/2024, Normal - semaglutide (Ozempic) 2 mg/dose (8 mg/3 mL) injection; Inject 2 mg under the skin every 7 (seven)days., Starting Wed06/14/2024, Normal - atorvastatin (Lipitor) 80 mg tablet; Take 1 tablet (80 mg total) by mouth daily., Starting Wed06/14/2024, Until Wed06/19/2025, Normal - [facility] office visit (clinic); Future; Expected date: 09/12/2024 - SARS-COV-2 (COVID-19) - MODERNA (12 years and older) [id number] If symptoms worsen or do not improve, patient is instructed to seek further medical attention. All questions have been answered. Patient demonstrated understanding and verbalized agreement with the plan. Total time spent: 45 minutes Follow up: 3 months KAR Smith, PKavyaAKavya-CKavya ET AIRCRAFT TECHNICIAN documented in this encounter Plan of Treatment Upcoming Encounters Date Type Department Care Team (Latest Contact Info) Description 06/21/2024 9:00 AM TARGET AIRCRAFT TECHNICIAN Appointment Department of Radiology in [place], [place] [address] [place] [phone] Laly Dickey MPAS, P.A.-C. [address] [place] [phone] 07/05/2024 9:30 AM TARGET AIRCRAFT TECHNICIAN Lab Department of Laboratory Medicine and Pathology, [facility] in [place], [place] [address] [place] [phone] Agustin Granda M.D., Ph.D. [address] [place] [phone] 07/05/2024 1:30 PM TARGET AIRCRAFT TECHNICIAN Comprehensive Visit Division of Trauma Critical Care and General Surgery in [place], [place] [address] [place] [phone] Agustin Granda M.D., Ph.D. [address] [place] [phone] 07/05/2024 3:00 PM TARGET AIRCRAFT TECHNICIAN Appointment Department of Neurology in [place], [place] [address] [place] [phone] Agustin Granda M.D., Ph.D. [address] [place] [phone] Discharge Disposition: Home or Self Care 07/06/2024 7:24 PM TARGET AIRCRAFT TECHNICIAN Hospital Encounter Post Anesthesia Care Unit in [address] [phone] Agustin Granda M.D., Ph.D. [address] [place] [phone] 07/06/2024 7:24 PM TARGET AIRCRAFT TECHNICIAN - 07/06/2024 10:14 PM TARGET AIRCRAFT TECHNICIAN Surgery [facility] OR [address] [place] [phone] Agustin Granda M.D., Ph.D. [address] [place] [phone] FINANCIAL SERVICES REP shunt placement 07/20/2024 10:00 AM TARGET AIRCRAFT TECHNICIAN Office Visit Department of [facility] in [place], [place] [address] [place] [phone] Laly Dickey MPAS, P.A.-C. [address] [place] [phone] 07/28/2024 8:30 AM TARGET AIRCRAFT TECHNICIAN Appointment Department of Radiology in [place], [place] [address] [place] [phone] Laly Dickey MPAS, P.A.-C. [address] [place] [phone] Discharge Disposition: Home or Self Care Scheduled Orders Name Type Priority Associated Diagnoses Orde r Schedule Lipid Panel Lab Routine Hyperlipidemia Mixed Expected: 09/12/2024, Expires: 09/12/2025 Basic Metabolic Panel Lab Routine Chronic Kidney Disease (CKD), Stage 3b Glomerular Filtration Rate (GFR) 30 To 44 (HCC) Expected: 09/12/2024, Expires: 09/12/2025 Hemoglobin A1c Lab Routine Diabetes Mellitus Type 2 With Diabetic Polyneuropathy (HCC) Expected: 12/12/2024, Expires: 09/12/2025 Basic Metabolic Panel Lab Routine Chronic Kidney Disease (CKD), Stage 3b Glomerular Filtration Rate (GFR) 30 To 44 (HCC) Expected: 12/12/2024, Expires: 09/12/2025 Scheduled Procedures Name Priority Associated Diagnoses Date/Ti me IMPLANTATION SHUNT VENTRICULAR PERITONEAL Hydrocephalus Normal Pressure (HCC) 07/06/2024 7:24 PM TARGET AIRCRAFT TECHNICIAN ARTHROPLASTY TOTAL REVERSE SHOULDER Fracture 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 Scheduled Referrals Name Type Priority Associated Diagnoses Orde r Schedule [facility] office visit (clinic) Outpatient Referral Routine Expected: 09/12/2024, Expires: 09/12/2025 [facility] office visit (clinic) Outpatient Referral Routine Expected: 12/12/2024, Expires: 09/12/2025 [facility] office visit (clinic) Outpatient Referral Routine Expected: 06/14/2024, Expires: 09/12/2025 documented as of this encounter Results * (ABNORMAL) Basic Metabolic Panel (06/14/2024 9:31 AM TARGET AIRCRAFT TECHNICIAN) Potassium, P 4.7 3.6 - 5.2 mmol/L 06/14/2024 2:11 PM TARGET AIRCRAFT TECHNICIAN OWAT Sodium, P 140 135 - 145 mmol/L 06/14/2024 2:11 PM TARGET AIRCRAFT TECHNICIAN OWAT Chloride, P 98 98 - 107 mmol/L 06/14/2024 2:11 PM TARGET AIRCRAFT TECHNICIAN OWAT Bicarbonate, P 30(H) 22 - 29 mmol/L 06/14/2024 2:11 PM TARGET AIRCRAFT TECHNICIAN OWAT Anion Gap, P 12 7 - 15 06/14/2024 2:11 PM TARGET AIRCRAFT TECHNICIAN [employer] BUN (Blood Urea Nitrogen), P 24(H) 6 - 21 mg/dL 06/14/2024 2:11 PM TARGET AIRCRAFT TECHNICIAN OWAT Creatinine 2.02(H) 0.59 - 1.04 mg/dL 06/14/2024 2:11 PM TARGET AIRCRAFT TECHNICIAN OWAT Estimated GFR (eGFR) 26(L) >=60 mL/min/BSA 06/14/2024 2:11 PM TARGET AIRCRAFT TECHNICIAN OWAT Comment: Estimated GFR calculated using the 2020 CKD_EPI creatinine equation. Calcium, Total, P 9.6 8.8 - 10.2 mg/dL 06/14/2024 2:11 PM TARGET AIRCRAFT TECHNICIAN OWAT Glucose, P 126 70 - 140 mg/dL 06/14/2024 2:11 PM TARGET AIRCRAFT TECHNICIAN OWAT Blood (Blood, Venous) 06/14/2024 9:31 AM TARGET AIRCRAFT TECHNICIAN 06/14/2024 1:06 PM TARGET AIRCRAFT TECHNICIAN us Laly LAKHANI, P.A.-C. LAB BLOOD ADD-ON Final Result [facility] [address] [place] [address], [facility] in [place] [address] [place] [address] documented in this encounter Visit Diagnoses Diagnosis Hydrocephalus Normal Pressure (HCC)- Primary Obesity Body Mass Index 30-39.9 Adult- Primary Hydrocephalus Normal Pressure (HCC) Diabetes Mellitus Type 2 With Diabetic Polyneuropathy (HCC) Hyperlipidemia Mixed Pain Low Back Chronic Chronic Kidney Disease (CKD), Stage 3b Glomerular Filtration Rate (GFR) 30 To 44 (HCC) Hypertensive Chronic Kidney Disease With Stage 1 Through Stage 4 Chronic Kidney Disease, Or Unspecified Chronic Kidney Disease Chronic Obstructive Pulmonary Disease (HCC) Chronic Diastolic (Congestive) Heart Failure (HCC) Anxiety Generalized Disorder History Of Falling Hydrocephalus Normal Pressure (HCC) documented in this encounter Additional Health Concerns Assessment Noted Time PHQ-9 Depression Total Score: 5 02/14/20 24 9:00 AM CDT documented as of this encounter Care Teams Hosting Engineer Relationship Specialty Start Date End Date Laly Dickey MPAS, P.A.-C. [address] [place] [address] [place] [phone] PCP - General Internal Medicine 07/28/22 documented as of this encounter
[2024-06-20 16:37] LABS: Slide Review Reflex No
--- OUTSIDE RECORDS SUMMARY | 2024-06-20 16:37 | XMS_ITS | Encounter Summary ---
Author Organization [facility] Address [address] [place] [address] Care Team Providers Care Pilot Can Router Name Role Phone Laly Dickey P.A.-CKavya Primary Care Pro vider Reason for Visit * Reason Comments Med Refill Encounter Details Date Type Department Care Team (Late st Contact Info) Description 05/08/2024 Refill Department of Community Internal Medicine in [place], [place] [address] [facility] [place] [phone] Laly Dickey MPAS P.A.-C. 300 [place] [phone] Med Refill Social History Tobacco Use Types Packs/Day Years Used Date Smoking Tobacco: Former Cigarettes 2 30 0 11/13/1975 - 11/12/2005 Passive Smoke Exposure: Never Smokeless Tobacco: Never Alcohol Use Standard Drinks/Week Comments Not Currently 0 (1 standard drink = 0.6 oz pur e alcohol) [facility] Utilities Answer Date Recorded In the past 12 months has e [employer], gas, oil, or water [employer] threatened to shut off services in your [...] your living situation today? I have a [facility] place to live 02/14/2024 Comments No Sex and Gender Information Value Date Recorded Sex Assigned at Female 03/19/2023 10:10 AM CDT Legal Sex Female 1:31 PM SUBSTATION MAINTENANCE TECHNICIAN Gender Identity Female 03/19/2023 10:10 AM CDT Sexual Orientation Not on file documented as of this encounter Miscellaneous Notes * Telephone Encounter - Janeth Restrepo L.P.N. - 05/09/2024 3:33 PM SUBSTATION MAINTENANCE TECHNICIAN Controlled substance renewal for traMADol 50 mg: No nursing concerns Renewal is pended per the controlled substance prescribing plan located in Synopsis Date last renewed (start date): 04/10/2024 Last provider visit: 03/21/2024 Urine Drug Screen last resulted on: 03/22/2023; Next due: OVERDUE; needs scheduling Screenings due: Current Next provider visit due: Scheduled for Controlled substance agreement last reviewed/signed 02/14/2024 This prescription may be filled on 05/09/2024, and next renewal may be on or after 06/06/2024 TATION MAINTENANCE TECHNICIAN * Telephone Encounter - Dejah Allen - 05/09/2024 6:33 AM CST Needs Review: Med Refill Team is unable to forward request to provider. Controlled Substance, CSA Primary Provider: KAR Smith, P.A.-CKavya Requested Prescriptions Pending Prescriptions Disp Refills traMADoL (Ultram) 50 mg tablet [Pharmacy Med Name: TRAMADOL 50MG TABLETS] 28 tablet Sig: TAKE 1 TABLET(50 MG) BY MOUTH AT BEDTIME NEEDED FOR PAIN OR CHRONIC PAIN TATION MAINTENANCE TECHNICIAN documented in this encounter Plan of Treatment Upcoming Encounters Date Type Department Care Team (Latest Contact Info) Description 06/21/2024 9:00 AM SUBSTATION MAINTENANCE TECHNICIAN Appointment Department of Radiology in [place], [place] [address] [facility] [place] [phone] Laly Dickey MPAS, P.A.-C. [address] [place] [phone] 07/05/2024 9:30 AM SUBSTATION MAINTENANCE TECHNICIAN Lab Department of Laboratory Medicine and Pathology, [facility], in [place], [place] [address] [place] [phone] Agustin Granda M.D., Ph.D. [address] [place] [phone] 07/05/2024 1:30 PM SUBSTATION MAINTENANCE TECHNICIAN Comprehensive Visit Division of Trauma Critical Care and General Surgery in [address] [phone] Agustin Granda M.D., Ph.D. [address] [place] [phone] 07/05/2024 3:00 PM SUBSTATION MAINTENANCE TECHNICIAN Appointment Department of Neurology in [place], [place] [address] [place] [phone] Agustin Granda M.D., Ph.D. [address] [place] [phone] Discharge Disposition: Home or Self Care 07/06/2024 7:24 PM SUBSTATION MAINTENANCE TECHNICIAN Hospital Encounter Post Anesthesia Care Unit in [address] [phone] Agustin Granda M.D., Ph.D. [address] [place] [phone] 07/06/2024 7:24 PM SUBSTATION MAINTENANCE TECHNICIAN - 07/06/2024 10:14 PM SUBSTATION MAINTENANCE TECHNICIAN Surgery [facility] MAIN OR [address] [place] [phone] Agustin Granda M.D., Ph.D. [address] [place] [phone] MEDICAL OR SURGICAL INSTRUMENT MAKER shunt placement 07/20/2024 10:00 AM SUBSTATION MAINTENANCE TECHNICIAN Office Visit Department of Community Internal Medicine in [place], [place] [address] [facility] [place] [phone] Laly Dickey MPAS, P.A.-C. 300 [facility] [place] [phone] 07/28/2024 8:30 AM SUBSTATION MAINTENANCE TECHNICIAN Appointment Department of Radiology in [place], [place] [address] [facility] [place] [phone] Laly Dickey MPAS, P.A.-C. 300 [facility] [place] [facility] [place] [phone] Discharge Disposition: Home or Self Care Scheduled Procedures Name Priority Associated Diagnoses Date/Ti me IMPLANTATION SHUNT VENTRICULAR PERITONEAL Hydrocephalus Normal Pressure (HCC) 07/06/2024 7:24 PM SUBSTATION MAINTENANCE TECHNICIAN ARTHROPLASTY TOTAL REVERSE SHOULDER Fracture 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 documented as of this encounter Visit Diagnoses Diagnosis Hydrocephalus Normal Pressure (HCC)- Primary Pain Shoulder Right Hydrocephalus Normal Pressure (HCC) documented in this encounter Additional Health Concerns Assessment Noted Time PHQ-9 Depression Total Score: 5 02/14/20 24 9:00 AM CDT documented as of this encounter Care Teams Pilot Can Router Relationship Specialty Start Date End Date Laly Dickey MPAS, P.A.-C. [address] [facility] [place] [facility] [place] [phone] PCP - General Internal Medicine 07/28/22 documented as of this encounter
[2024-06-20 16:56] LABS: Chloride* 102 mmol/L (96-114); Potassium* 3.5 mmol/L (3.6-5.1); Sodium* 139 mmol/L (135-149)
[2024-06-20 16:59] LABS: Anion Gap 9 mEq/L (7-15); Blood Urea Nitrogen* 29 mg/dL (7-30); Carbon Dioxide* 28 mmol/L (20-32); Creatinine* 1.9 mg/dL (0.5-1.5); Est. Creatinine Clearance* 28.38; Estimated Glomerular Filt Rate 28 ml/min; Glucose* 140 mg/dL (60-115)
--- NOTE | 2024-06-20 17:09 | CRLHL7_ITS ---
For Patients: As a result of the Century Cures Act, medical imaging exams and procedure reports are released immediately into your electronic medical record. You may view this report before your referring provider. If you have questions, please contact your health care provider. INDICATION: Left facial and neck swelling. TECHNIQUE: CT of the neck with Isovue 370 iodinated contrast agent. COMPARISON: None. FINDINGS: Nasopharynx: Within normal limits. Oropharynx: Within normal limits. Oral cavity: Within normal limits. Supraglottic, glottic and infraglottic larynx: Within normal limits. Hypopharynx: Within normal limits. Airway including the trachea: Within normal limits. Salivary glands and thyroid gland: Asymmetric enlargement and hyper enhancement involving right-sided parotid gland substance. There is adjacent surrounding inflammatory fat stranding. No organized fluid collections. No radiodense sialolith. Lymph nodes and other cervical soft tissues: Prominent right-sided upper cervical lymphadenopathy, likely reactive. Vascular Structures: Within normal limits. Osseous structures: No acute osseous abnormalities. Ankylosis along the disc spaces anteriorly by paravertebral osteophytes, as well as posteriorly along most of the cervical facets. C5-6 disc degeneration and disc vacuum phenomenon. C6-7 advanced disc height loss and endplate remodeling. Grade 1 anterolisthesis C6-7. Multilevel uncovertebral and facet arthrosis with high-grade neural foraminal stenosis at C4-5 on the right, C5-6 on the right, C6-7 bilaterally, and [id number] elsewhere. Chronic fracture deformity involving the right humerus with advanced degenerative changes involving the glenohumeral joint. Paranasal sinuses and mastoid air cells: Within normal limits. Teeth: Within normal limits. Imaged orbits and intracranial contents: Within normal limits. Imaged chest wall, mediastinum and upper lungs: Hazy ground-glass opacities within the right greater than left upper lungs, nonspecific but may be due to reduced inspiration. IMPRESSION: 1. Findings consistent with right-sided parotitis. No radiodense sialolith along the course of Stensen`s duct. No abscess. Please note that all CT scans at this facility use dose modulation, iterative reconstruction, and/or weight-based dosing when appropriate to reduce radiation dose to as low as reasonably achievable. Dictated by Dustin oBtello MD @ 06/20/2024 5:58:50 PM (Electronically Signed)
[2024-06-20 17:15] LABS: PCR FLU A Negative PCR FLU A (Negative); PCR FLU B Negative PCR FLU B (Negative); PCR RSV Negative PCR RSV (Negative); SARS PCR* Negative SARS-CoV-2 (Negative)
--- NOTE | 2024-06-20 17:39 | ED_ITS ---
HPI - General Adult General Date Seen: 06/20/24 Chief complaint: Unspecified Complaint, Adult Stated complaint: R side of face swollen-diff breathing Time Seen by Provider: 06/20/24 15:51 Source: patient and family Mode of arrival: ambulatory Limitations: no limitations History of Present Illness HPI narrative: Patient is a 69-year-old female presents here with right-sided facial swelling that started yesterday, she does have a history of some issues with her brain is getting what I have suspect is a [employer] shunt coming up, she has been having pain in her mouth for about a week, but no this swelling is new. Fever 100.7 yesterday at approximately 3:00 p.m. this was done by temp oral. She has no teeth at all she tells me, is an edentulous. She has swelling noted over the right side of her face, with some redness and warmth. Her mouth opening she tells me is normal she has no problem with breathing even though there was notable difficulty breathing in her chart. This did not get worse when she was going to eat, no history of previous salivary gland her issues. Onset (ago): hour(s) Location: head, face and neck Radiation: non-radiation Severity: moderate Quality: aching and sharp Pain Consistency: constant Relieving factors: none Exacerbating factors: none Associated symptoms: fever/chills and loss of appetite Treatments prior to arrival: none Related Data Home Medications ?Medication ?Instructions ?Recorded ?Confirmed albuterol sulfate 90 mcg/actuation 2 puff inhalation Q4H PRN 10/10/23 06/20/24 aerosol inhaler amitriptyline 50 mg tablet 150 mg PO HS 10/10/23 06/20/24 aspirin 81 mg tablet,delayed 81 mg PO DAILY 10/10/23 06/20/24 release atorvastatin 80 mg tablet 80 mg PO DAILY 10/10/23 06/20/24 diclofenac sodium 1 % topical gel 4 g topical QID PRN 10/10/23 06/20/24 ezetimibe 10 mg tablet 10 mg PO DAILY 10/10/23 06/20/24 gabapentin 300 mg capsule 300 mg PO HS 10/10/23 06/20/24 multivitamin with minerals 1 cap PO DAILY 10/10/23 06/20/24 omeprazole 40 mg capsule,delayed 40 mg PO DAILY 10/10/23 06/20/24 release semaglutide 1 mg/dose (4 mg/3 mL) 1 mg subcut .weekly 10/10/23 06/20/24 subcutaneous pen injector tiotropium bromide 2.5 2 inh inhalation Q24H 10/10/23 06/20/24 mcg/actuation mist for inhalation (Spiriva Respimat) torsemide 20 mg tablet 80 mg PO DAILY 10/10/23 06/20/24 tramadol 50 mg tablet 50 mg PO HS PRN 10/10/23 06/20/24 venlafaxine 150 mg 150 mg PO DAILY 10/10/23 06/20/24 capsule,extended release 24 hr losartan 50 mg tablet 50 mg PO DAILY 10/11/23 06/20/24 Allergies Allergy/AdvReac Type Severity Reaction Status Date / Time adhesive tape Allergy Unknown Verified 06/20/24 15:43 Penicillins Allergy Unknown Verified 06/20/24 15:43 Review of Systems Status of ROS: Reports: 10 or more systems reviewed and unremarkable except as noted in History and below [facility] Medical History Dizziness ?R42 - Dizziness and giddiness (ICD-10) Hyperlipidemia ?E78.5 - Hyperlipidemia, unspecified (ICD-10) Anxiety ?F41.9 - Anxiety disorder, unspecified (ICD-10) Gastroesophageal reflux ?K21.9 - Gastro-esophageal reflux disease without esophagitis (ICD-10) Obstructive sleep apnea ?G47.33 - Obstructive sleep apnea (adult) (pediatric) (ICD-10) Peripheral autonomic neuropathy due to diabetes mellitus ?E11.43 - Type 2 diabetes mellitus with diabetic autonomic (poly)neuropathy (ICD-10) Diabetes mellitus ?E11.9 - Type 2 diabetes mellitus without complications (ICD-10) Chronic back pain ?M54.9 - Dorsalgia, unspecified (ICD-10) ?G89.29 - Other chronic pain (ICD-10) Pulmonary nodule ?R91.1 - Solitary pulmonary nodule (ICD-10) Hypertension ?I10 - Essential (primary) hypertension (ICD-10) Comminuted right humeral fracture with nonunion ?S42.351K - Displaced comminuted fracture of shaft of humerus, right arm, subsequent encounter for fracture with nonunion (ICD-10) Chronic renal failure, stage 3b ?N18.32 - Chronic kidney disease, stage 3b (ICD-10) Obesity ?E66.9 - Obesity, unspecified (ICD-10) Heart failure with preserved ejection fraction ?I50.30 - Unspecified diastolic (congestive) heart failure (ICD-10) COPD (chronic obstructive pulmonary disease) ?J44.9 - Chronic obstructive pulmonary disease, unspecified (ICD-10) Surgical History Hx of shoulder surgery ?Z98.890 - Other specified postprocedural states (ICD-10) History of parathyroidectomy ?Z98.890 - Other specified postprocedural states (ICD-10) ?Z90.89 - Acquired absence of other organs (ICD-10) Family History Brother Diabetes Hx of CABG Sister Diabetes Father Lung cancer Prostate cancer Mother Lung cancer Heart disease Social History Narrative: Rajinder lives in [place] with her brother. She reports generally this has been going well. She has some disability because of her remote history of right shoulder injury, poorly healing humeral fracture. She walks without assistive device. She quit smoking about 21 years ago. She does not drink alcohol. Her daughter Lea is healthcare power of criminal defense attorney. Code status is full What is your current living situation?: I presently have a place to live Problems where you live: no known problems Problems where you live details: N/A In the past 12 months, utilities in danger of being shut off: no In past 12 months, lack of transportation kept you from medical appts, meetings, work, or getting things needed for daily living: no In the past 12 mos, have been you worried that your food would run out before you had money to buy more?: never true In the past 12 mos, the food you bought just didn't last and you didn't have money to buy more?: never true Smoking Status: Former smoker How often do you have a drink containing alcohol: never How often do you have six or more drinks on one occasion: Never AUDIT-C Alcohol total score: 0 Non-prescribed substance use: denies use Caffeine: Yes How often does anyone, including family, friends and others, physically hurt you : never How often does anyone, including family, friends and others, insult or talk down to you: never How often does anyone, including family, friends and others, threaten you with harm: never How often does anyone, including family, friends and others, scream or curse at you: never service: No Exam Narrative: Exam Narrative: On examination she is swollen on the right side of her face I would describe as moderately she is speaking to me normally her vital signs are all within normal limits, the swelling does track down along her into her neck, mouth opening is 3 finger breaths. edentulous is noted, her maximal pain is rate over Stensen's duct on the right interview call mucosa, the cannot see any pus coming out here, but it is sore and tender I do not palpate a stone either. She is also sore over the right parotid which seems very swollen. No meningismus I did cannot palpate any lymphadenopathy due to the size of her neck, chest clear bilateral with no wheezing crackles noted heart sounds are normal, skin reveals no petechiae or other rashes. Const: Vital Signs, click to edit/add: Vital Signs - 24 hr 06/20/24 15:33 Temperature 98.6 F Pulse Rate [Pulse Oximeter] 69 Respiratory Rate 18 Blood Pressure [Ri ght Upper Arm] 110/75 Pulse Oximetry 98 Oxygen Delivery Me thod Room Air Documenting provider has reviewed patient's vital signs: yes Course Course ED Course: Discussed with patient, in the inpatient hospitalist. I also discussed with ENT given patient's high elevated white count, and other morbidities, inpatient IV antibiotics is suggested, she does have a penicillin allergy which she says is a rash, she has had this since she was a baby. I think it would be reasonable to use Rocephin, along with metronidazole, I do worry about Levaquin which is another alternative that I could use here as being harder on her kidneys, she already has renal insufficiency, I will give her some more fluids, ENT suggested milking the gland also would be helpful. We will give her a dose here, and she has accepted by Hospital [facility] for admission. Vital Signs Vital signs: Initial Vital Signs Temperature 98.6 F 06/20/24 15:33 Temperature Source Temporal Artery Scan 06/20/24 15:33 Pulse Rate 69 06/20/24 15:33 Respiratory Rate 18 06/20/24 15:33 Blood Pressure 110/75 06/20/24 15:33 Blood Pressure Mean 86 06/20/24 15:33 Pulse Oximetry 98 06/20/24 15:33 Oxygen Delivery Method Room Air 06/20/24 15:33 Vital Signs Temperature 98.6 F 06/20/24 15:33 Pulse Rate 69 06/20/24 15:33 Respiratory Rate 18 06/20/24 15:33 Blood Pressure 110/75 06/20/24 15:33 Pulse Oximetry 98 06/20/24 15:33 Oxygen Delivery Method Room Air 06/20/24 15:33 Temperature 98.6 F 06/20/24 15:33 Pulse Rate 69 06/20/24 15:33 Respiratory Rate 18 06/20/24 15:33 Blood Pressure 110/75 06/20/24 15:33 Pulse Oximetry 98 06/20/24 15:33 Oxygen Delivery Method Room Air 06/20/24 15:33 Medications Administered Medications: Generic Name Dose Route Start Last Admin Trade Name Freq PRN Reason Stop Dose Admin Sodium Chloride 1,000 mls @ 500 mls/hr 06/20/24 18:28 06/20/24 18:41 0.9 % Sodium Chloride 1000 Ml IV 06/20/24 20:27 500 mls/hr .Q2H FERMÍN Administration Discontinued Medications Generic Name Dose Route Start Last Admin Trade Name Freq PRN Reason Stop Dose Admin Sodium Chloride 1,000 mls @ 1,000 mls/hr 06/20/24 16:15 06/20/24 17:11 0.9 % Sodium Chloride 1000 Ml IV 06/20/24 17:14 Infused .Q1H FERMÍN Infusion Ceftriaxone Sodium 1 gm/ 100 mls @ 200 mls/hr 06/20/24 18:19 06/20/24 18:41 Sodium Chloride IVPB 06/20/24 18:20 200 mls/hr ONCE ONE Administration Medical Decision Making MDM Narrative Medical decision making narrative: Differential diagnosis here includes Azar's angina, tooth abscess, parotid abscess parotid duct stone, tonsillar enlargement secondary to either mono or strep, or peritonsillar abscess. Lymphadenopathy is also possible We will get some labs, I will give her some fluids, her creatinine returned at 1.9 which is elevated, but within her normal range. I do recommend that we proceed with a CT scan of her face res agent. For further differentiation. Medical Records Medical records reviewed: Yes I reviewed the patient's medical records Lab Data Lab results reviewed: Yes I reviewed the patient's lab results Labs: Lab Results 06/20/24 Range/Units 16:21 WBC 18.59 H (4.50-11.00) K/uL RBC 3.87 L (4.00-5.20) m/uL Hgb 11.8 L (12.0-16.0) gm/dL Hct 35.4 (33.0-51.0) % MCV 92 (80-100) fL MCH 31 (26-34) pg MCHC 33 (32-36) gm/dL RDW Coeff of Isiah 12.7 (11.5-15.5) % Plt Count 302 (140-440) K/uL Neut % (Auto) 77.7 H (42.0-72.0) % Lymph % (Auto) 12.6 L (20-44) % [place] % (Auto) 8.4 (0.0-11.0) % Eos % (Auto) 0.9 (0.0-7.0) % Baso % (Auto) 0.3 (0.0-3.0) % Neut # (Auto) 14.40 H (1.7-7.0) K/uL Lymph # (Auto) 2.30 (0.90-2.90) K/uL [place] # (Auto) 1.60 H (0.00-0.90) K/UL Eos # (Auto) 0.20 (0.00-0.50) K/uL Baso # (Auto) 0.10 (0.00-0.30) K/uL Abs Immat Gran (auto) 0.00 (0.00-0.30) K/uL Imm/Tot Granulo (auto) 0.1 % Sodium 139 (135-149) mmol/L Potassium 3.5 L (3.6-5.1) mmol/L Chloride 102 (96-114) mmol/L Carbon Dioxide 28 (20-32) mmol/L Anion Gap 9 (7-15) mEq/L BUN 29 (7-30) mg/dL Creatinine 1.9 H (0.5-1.5) mg/dL Estimated Creat Clear 28.38 Estimated GFR 28 ml/min Glucose 140 H (60-115) mg/dL Calcium 9.0 (8.4-10.6) mg/dL Procalcitonin 0.12 (<0.50) ng/mL SARS-CoV-2 (PCR) Negative SARS-CoV-2 (Negative) Influenza Type A (PCR) Negative PCR FLU A (Negative) Influenza Type B (PCR) Negative PCR FLU B (Negative) RSV (PCR) Negative PCR RSV (Negative) Imaging Data Neck CT: Attestation: I have reviewed the pertinent imaging results. My impression: Abnormality with left parotid gland is noted. Radiologist's impression: P Patient: RAJINDER VERMA Facility:?[facility] Patient ID:?[id number] Site Patient ID:?[id number]. Site :?[id number] Study:?CT-ST Neck W/ ISOVUE 370-06/20/2024 5:31:54 PM Ordering Physician:Emery Ng Final Report: INDICATION: Left facial and neck swelling. TECHNIQUE: CT of the neck with Isovue 370 iodinated contrast agent. COMPARISON: None. FINDINGS: Nasopharynx: Within normal limits. Oropharynx: Within normal limits. Oral cavity: Within normal limits. Supraglottic, glottic and infraglottic larynx: Within normal limits. Hypopharynx: Within normal limits. Airway including the trachea: Within normal limits. Salivary glands and thyroid gland: Asymmetric enlargement and hyper enhancement involving right-sided parotid gland substance. There is adjacent surrounding inflammatory fat stranding. No organized fluid collections. No radiodense sialolith. Lymph nodes and other cervical soft tissues: Prominent right-sided upper cervical lymphadenopathy, likely reactive. Vascular Structures: Within normal limits. Osseous structures: No acute osseous abnormalities. Ankylosis along the disc spaces anteriorly by paravertebral osteophytes, as well as posteriorly along most of the cervical facets. C5-6 disc degeneration and disc vacuum phenomenon. C6-7 advanced disc height loss and endplate remodeling. Grade 1 anterolisthesis C6-7. Multilevel uncovertebral and facet arthrosis with high-grade neural foraminal stenosis at C4-5 on the right, C5-6 on the right, C6-7 bilaterally, and [id number] elsewhere. Chronic fracture deformity involving the right humerus with advanced degenerative changes involving the glenohumeral joint. Paranasal sinuses and mastoid air cells: Within normal limits. Teeth: Within normal limits. Imaged orbits and intracranial contents: Within normal limits. Imaged chest wall, mediastinum and upper lungs: Hazy ground-glass opacities within the right greater than left upper lungs, nonspecific but may be due to reduced inspiration. IMPRESSION: 1. Findings consistent with right-sided parotitis. No radiodense sialolith along the course of Stensen`s duct. No abscess. Please note that all CT scans at this facility use dose modulation, iterative reconstruction, and/or weight-based dosing when appropriate to reduce radiation dose to as low as reasonably achievable. Dictated by Dustin Botello MD @ 06/20/2024 5:58:50 PM (Electronic Signature) Discharge Plan Discharge Clinical Impression: Infective sialoadenitis, Chronic renal insufficiency, Leukocytosis Patient Disposition: Admitted As Observation Condition: Stable Prescriptions: No Action albuterol sulfate 90 mcg/actuation HFA aerosol inhaler 2 puff INHALATION Q4H PRN Rx Instructions: Inhale 2 puffs every 4 (four) hours as needed for shortness of breath. amitriptyline 50 mg tablet 150 mg PO HS Rx Instructions: TAKE 3 TABLETS(150 MG) BY MOUTH AT BEDTIME aspirin 81 mg tablet,delayed release (DR/EC) 81 mg PO DAILY Rx Instructions: Take 81 mg by mouth at bedtime. atorvastatin 80 mg tablet 80 mg PO DAILY Rx Instructions: Take 1 tablet (80 mg total) by mouth daily. diclofenac sodium 1 % gel 4 g TOPICAL QID PRN Rx Instructions: Apply 4 g topically 4 (four) times a day as needed (Pain). Apply to right shoulder. ezetimibe 10 mg tablet 10 mg PO DAILY Rx Instructions: TAKE 1 TABLET(10 MG) BY MOUTH DAILY gabapentin 300 mg capsule 300 mg PO HS Rx Instructions: Take 1 capsule (300 mg total) by mouth at bedtime. multivitamin with minerals Capsule 1 cap PO DAILY Spiriva Respimat 2.5 mcg/actuation mist 2 inh INHALATION Q24H Rx Instructions: Inhale 2 puffs daily. torsemide 20 mg tablet 80 mg PO DAILY Rx Instructions: TAKE 4 TABLETS(80 MG) BY MOUTH DAILY tramadol 50 mg tablet 50 mg PO HS PRN Rx Instructions: Take 1 tablet (50 mg total) by mouth at bedtime as needed for pain Indications: Chronic Pain/Nonacute Pain. venlafaxine 150 mg capsule,extended release 24hr 150 mg PO DAILY Rx Instructions: TAKE 1 CAPSULE(150 MG) BY MOUTH DAILY semaglutide 1 mg/dose (4 mg/3 mL) pen injector 1 mg SUBCUT .weekly Rx Instructions: Inject 1 mg under the skin every 7 (seven) days. omeprazole 40 mg capsule,delayed release(DR/EC) 40 mg PO DAILY Rx Instructions: Take 1 capsule (40 mg total) by mouth 2 (two) times a day before breakfast and dinner. losartan 50 mg tablet 50 mg PO DAILY Follow Up/Referrals: Laly Dickey PA-C [Primary Care Provider] -
[2024-06-20 18:38] LABS: Procalcitonin* 0.12 ng/mL (<0.50)
[2024-06-20] MEDS: 0.9 % SODIUM CHLORIDE 1000 ml 1,000 ML 500 ML IV (18:41)
[2024-06-20] MEDS: cefTRIAXone 1 GM in 0.9 % SODIUM CHLORIDE Mini-bag 100 ML IVPB (18:41)
--- NOTE | 2024-06-20 20:11 | P.IMHP_ITS ---
Hospitalist- H&P: HPI History of Present Illness Date Seen: 06/20/24 Chief complaint: R side of face swollen-diff breathing Narrative: Anna Ortega is a 69 year old female with diabetes, COPD, obesity, JOSIAH admitted to the hospital with painful swelling of her left right cheek. At she 1st noted that her whole mouth/mucosa with sore for the past several days. That has gotten better now but in the last day she developed fairly severe painful swelling of the right cheek just in front of her right ear. She is not aware of having a fever. She has not had this type of problem before. She reports no other recent respiratory symptoms or other symptoms of illness. She has been diagnosed with hydrocephalus and is pending placement of a MECHANIC/WELDER shunt at [facility] on July 06. Review of Systems Narrative: No recent health problems except as noted above. [facility] Medical History (Updated 06/20/24 @ 20:21 by Lukas Santiago MD) Dizziness ?R42 - Dizziness and giddiness (ICD-10) Hyperlipidemia ?E78.5 - Hyperlipidemia, unspecified (ICD-10) Anxiety ?F41.9 - Anxiety disorder, unspecified (ICD-10) Gastroesophageal reflux ?K21.9 - Gastro-esophageal reflux disease without esophagitis (ICD-10) Obstructive sleep apnea ?G47.33 - Obstructive sleep apnea (adult) (pediatric) (ICD-10) Peripheral autonomic neuropathy due to diabetes mellitus ?E11.43 - Type 2 diabetes mellitus with diabetic autonomic (poly)neuropathy (ICD-10) Diabetes mellitus ?E11.9 - Type 2 diabetes mellitus without complications (ICD-10) Chronic back pain ?M54.9 - Dorsalgia, unspecified (ICD-10) ?G89.29 - Other chronic pain (ICD-10) Pulmonary nodule ?R91.1 - Solitary pulmonary nodule (ICD-10) Hypertension ?I10 - Essential (primary) hypertension (ICD-10) Comminuted right humeral fracture with nonunion ?S42.351K - Displaced comminuted fracture of shaft of humerus, right arm, subsequent encounter for fracture with nonunion (ICD-10) Chronic renal failure, stage 3b ?N18.32 - Chronic kidney disease, stage 3b (ICD-10) Obesity ?E66.9 - Obesity, unspecified (ICD-10) Heart failure with preserved ejection fraction ?I50.30 - Unspecified diastolic (congestive) heart failure (ICD-10) COPD (chronic obstructive pulmonary disease) ?J44.9 - Chronic obstructive pulmonary disease, unspecified (ICD-10) Surgical History Hx of shoulder surgery ?Z98.890 - Other specified postprocedural states (ICD-10) History of parathyroidectomy ?Z98.890 - Other specified postprocedural states (ICD-10) ?Z90.89 - Acquired absence of other organs (ICD-10) Family History Brother Diabetes Hx of CABG Sister Diabetes Father Lung cancer Prostate cancer Mother Lung cancer Heart disease Social History Narrative: Anna lives in [place] with her brother. She reports generally this has been going well. She has some disability because of her remote history of right shoulder injury, poorly healing humeral fracture. She walks without assistive device. She quit smoking about 21 years ago. She does not drink alcohol. Her daughter Lea is healthcare power of senior interactive producer. Code status is full What is your current living situation?: I presently have a place to live Problems where you live: no known problems Problems where you live details: N/A In the past 12 months, utilities in danger of being shut off: no In past 12 months, lack of transportation kept you from medical appts, meetings, work, or getting things needed for daily living: no In the past 12 mos, have been you worried that your food would run out before you had money to buy more?: never true In the past 12 mos, the food you bought just didn't last and you didn't have money to buy more?: never true Smoking Status: Former smoker How often do you have a drink containing alcohol: never How often do you have six or more drinks on one occasion: Never AUDIT-C Alcohol total score: 0 Non-prescribed substance use: denies use Caffeine: Yes How often does anyone, including family, friends and others, physically hurt you : never How often does anyone, including family, friends and others, insult or talk down to you: never How often does anyone, including family, friends and others, threaten you with harm: never How often does anyone, including family, friends and others, scream or curse at you: never service: No Meds Home Medications and Allergies Home Medications ?Medication ?Instructions ?Recorded ?Confirmed ?Type albuterol sulfate 90 mcg/actuation 2 puff inhalation Q4H PRN 10/10/23 06/20/24 History aerosol inhaler amitriptyline 50 mg tablet 150 mg PO HS 10/10/23 06/20/24 History aspirin 81 mg tablet,delayed 81 mg PO DAILY 10/10/23 06/20/24 History release atorvastatin 80 mg tablet 80 mg PO DAILY 10/10/23 06/20/24 History diclofenac sodium 1 % topical gel 4 g topical QID PRN 10/10/23 06/20/24 History ezetimibe 10 mg tablet 10 mg PO DAILY 10/10/23 06/20/24 History gabapentin 300 mg capsule 300 mg PO HS 10/10/23 06/20/24 History multivitamin with minerals 1 cap PO DAILY 10/10/23 06/20/24 History omeprazole 40 mg capsule,delayed 40 mg PO DAILY 10/10/23 06/20/24 History release semaglutide 1 mg/dose (4 mg/3 mL) 1 mg subcut .weekly 10/10/23 06/20/24 History subcutaneous pen injector tiotropium bromide 2.5 2 inh inhalation Q24H 10/10/23 06/20/24 History mcg/actuation mist for inhalation (Spiriva Respimat) torsemide 20 mg tablet 80 mg PO DAILY 10/10/23 06/20/24 History tramadol 50 mg tablet 50 mg PO HS PRN 10/10/23 06/20/24 History venlafaxine 150 mg 150 mg PO DAILY 10/10/23 06/20/24 History capsule,extended release 24 hr losartan 50 mg tablet 50 mg PO DAILY 10/11/23 06/20/24 History Allergies Allergy/AdvReac Type Severity Reaction Status Date / Time adhesive tape Allergy Unknown Verified 06/20/24 15:43 Penicillins Allergy Unknown Verified 06/20/24 15:43 Exam Narrative: Exam Narrative: She is alert and pleasant and appears in no distress. She is very prominent swelling of the right cheek in front of the right ear. No marked erythema and no sign of trauma. Palpation shows firm swelling of the entire parotid gland. This is quite tender to touch. Left side is without swelling or tenderness. Oropharynx with very small airway. He dentulous. No obvious abnormality in the area of Stensen's duct. Neck is supple without mass or adenopathy or stridor. Respirations are clear to auscultation. Cardiovascular: S1, S2, regular rate and rhythm. Abdomen is soft without tenderness or mass. She moves all 4 extremities well. Intact pulses in all 4 extremities. Const: Vital Signs, click to edit/add: Vital Signs - 24 hr 06/20/24 15:33 Temperature 98.6 F Pulse Rate [Pulse Oximeter] 69 Respiratory Rate 18 Blood Pressure [Ri ght Upper Arm] 110/75 Pulse Oximetry 98 Oxygen Delivery Me thod Room Air Hospitalist - H&P: Result Labs Labs: Short CBC 06/20/24 Range/Units 16:21 WBC 18.59 H (4.50-11.00) K/uL Hgb 11.8 L (12.0-16.0) gm/dL Hct 35.4 (33.0-51.0) % Plt Count 302 (140-440) K/uL BMP 06/20/24 16:21 Sodium 139 Potassium 3.5 L Chloride 102 Carbon Dioxide 28 BUN 29 Creatinine 1.9 H Glucose 140 [address] Calcium 9.[address] soft tissue neck: Radiologist's impression: INDICATION: Left facial and neck swelling. TECHNIQUE: CT of the neck with Isovue 370 iodinated contrast agent. COMPARISON: None. FINDINGS: Nasopharynx: Within normal limits. Oropharynx: Within normal limits. Oral cavity: Within normal limits. Supraglottic, glottic and infraglottic larynx: Within normal limits. Hypopharynx: Within normal limits. Airway including the trachea: Within normal limits. Salivary glands and thyroid gland: Asymmetric enlargement and hyper enhancement involving right-sided parotid gland substance. There is adjacent surrounding inflammatory fat stranding. No organized fluid collections. No radiodense sialolith. Lymph nodes and other cervical soft tissues: Prominent right-sided upper cervical lymphadenopathy, likely reactive. Vascular Structures: Within normal limits. Osseous structures: No acute osseous abnormalities. Ankylosis along the disc spaces anteriorly by paravertebral osteophytes, as well as posteriorly along most of the cervical facets. C5-6 disc degeneration and disc vacuum phenomenon. C6-7 advanced disc height loss and endplate remodeling. Grade 1 anterolisthesis C6-7. Multilevel uncovertebral and facet arthrosis with high-grade neural foraminal stenosis at C4-5 on the right, C5-6 on the right, C6-7 bilaterally, and [id number] elsewhere. Chronic fracture deformity involving the right humerus with advanced degenerative changes involving the glenohumeral joint. Paranasal sinuses and mastoid air cells: Within normal limits. Teeth: Within normal limits. Imaged orbits and intracranial contents: Within normal limits. Imaged chest wall, mediastinum and upper lungs: Hazy ground-glass opacities within the right greater than left upper lungs, nonspecific but may be due to reduced inspiration. IMPRESSION: 1. Findings consistent with right-sided parotitis. No radiodense sialolith along the course of Stensen`s duct. No abscess. Assessment and Plan Assessment and plan (1) Acute parotitis: Problem comment: Ceftriaxone and metronidazole, MRSA screening, analgesia, stimulate saliva, milk parotid gland as tolerated. Dr. Ohara is available for consult June 21 in the clinic. Status: Acute (2) Chronic renal insufficiency: Problem comment: Creatinine is above baseline at 1.9. Possibly due to poor oral intake recently. Monitor Status: Acute (3) Diabetes mellitus: Problem comment: Continue to monitor. Status: Chronic (4) Obstructive sleep apnea: Problem comment: Stopped using CPAP years ago. Recommend re-evaluation with sleep specialist. Monitor for complications related to opioid use for pain Status: Chronic (5) Obesity: Problem comment: Has had some weight loss on Ozempic Status: Chronic (6) COPD (chronic obstructive pulmonary disease): Problem comment: Currently appears to be well compensated. Status: Acute Plan 69-year-old female admitted to the hospital with acute infection of the parotid gland. Cause for this is not certain. Treat for bacterial infection with ceftriaxone and metronidazole. Consult ENT as needed. Anticipate minimum 2 nights in a hospital for IV antibiotic treatment Total Time Spent Total Time Spent: Total time spent today is 60 minutes in review of outside records, discussion with patient and other providers diagnosis and treatment.
[2024-06-20 20:59] VITALS: BP 137/72; PULSE 92; RESP 18; TEMP 36.7; O2SAT 94; O2SAT 98; BMI 35.0
[2024-06-20] MEDS: GABAPENTIN 300 MG CAPSULE PO (21:08)
[2024-06-20] MEDS: OXYCODONE 5 MG TABLET PO ×2 (21:08→23:08)
[2024-06-20] MEDS: POTASSIUM BICARB 25 MEQ EFFERVESCENT TAB PO (21:09)
[2024-06-20] MEDS: ENOXAPARIN 40 MG/0.4 ML INJ SUBCUT (21:10)
[2024-06-20] MEDS: metroNIDAZOLE 500 MG/100 ML PIGGYBACK 100 MG IVPB (21:10)
[2024-06-20] MEDS: TRAMADOL HCL 50 MG TABLET PO (23:08)
[2024-06-20 23:12] VITALS: BP 114/61; PULSE 90; RESP 18; TEMP 37.5; O2SAT 95
[2024-06-21] MEDS: OXYCODONE 5 MG TABLET PO ×3 (01:27→05:21)
[2024-06-21] MEDS: ACETAMINOPHEN 325 MG TABLET 650 MG PO (03:28)
[2024-06-21 03:34] VITALS: BP 143/82; PULSE 94; RESP 18; TEMP 37.9; O2SAT 94
[2024-06-21] MEDS: metroNIDAZOLE 500 MG/100 ML PIGGYBACK 100 MG IVPB (05:22)
[2024-06-21 05:57] VITALS: TEMP 37.6
[2024-06-21 06:39] LABS: Basophils Percent Auto 0.3 % (0.0-3.0); Hematocrit 33.2 % (33.0-51.0); Hemoglobin* 11.3 gm/dL (12.0-16.0); Immature Granulocytes Pct Auto 0.7 %; Lymphocytes Percent Auto 7.5 % (20-44); Mean Corpuscular HGB Conc 34 gm/dL (32-36); Mean Corpuscular Hemoglobin 31 pg (26-34); Mean Corpuscular Volume 91 fL (80-100); Monocytes Percent Auto 9.4 % (0.0-11.0); Neutrophils Percent Auto 81.1 % (42.0-72.0); Platelet Count* 257 K/uL (140-440); RDW Coefficient of Variation % 12.5 % (11.5-15.5); Red Blood Count 3.67 m/uL (4.00-5.20); White Blood Count* 20.17 K/uL (4.50-11.00)
[2024-06-21 06:48] LABS: Slide Review Reflex No
--- NOTE | 2024-06-21 06:52 | PC.NURSE ---
End of shift summary: Pt has been A&O and VSS. Afebrile on arrival but spiked a fever of 100.2 at 0300. Gave PRN Tylenol and came down to 99.7. Pt is [place] even with hearing aides in and also forgetful, repeating the same questions on each encounter. PIV in left FA SL and patent with IV abx. She is Ax1 for transfers with gait belt d/t unsteady gait and h/o dizziness. Pt speech is slurred but coherent d/t no teeth & no dentures. Right facial swelling has erythema present & firm to the touch. She?s been c/o 8-10/10 pain throughout the night, PRN oxycodone given q2H. End of the shift, nurse noted she is more groggy and falling asleep in conversation but still rating pain at 10/10; provided education on pain scale. No edema noted in extremities. ?
[2024-06-21 06:54] VITALS: BP 115/61; PULSE 98; RESP 18; TEMP 37.9; O2SAT 90
[2024-06-21 06:56] VITALS: O2SAT 90
[2024-06-21 07:13] LABS: Chloride* 103 mmol/L (96-114); Potassium* 3.8 mmol/L (3.6-5.1); Sodium* 137 mmol/L (135-149)
[2024-06-21 07:15] LABS: Creatinine* 1.4 mg/dL (0.5-1.5); Est. Creatinine Clearance* 38.52; Estimated Glomerular Filt Rate 40 ml/min
[2024-06-21 07:16] LABS: Anion Gap 10 mEq/L (7-15); Blood Urea Nitrogen* 24 mg/dL (7-30); Calcium* 8.6 mg/dL (8.4-10.6); Carbon Dioxide* 24 mmol/L (20-32); Glucose* 165 mg/dL (60-115)
[2024-06-21] MEDS: ATORVASTATIN CALCIUM 40 MG TABLET 80 MG PO (08:44)
[2024-06-21] MEDS: LOSARTAN POTASSIUM 50 MG TABLET PO (08:44)
[2024-06-21] MEDS: TORSEMIDE 20 MG TABLET 80 MG PO (08:44)
[2024-06-21] MEDS: OMEPRAZOLE 20 MG CAPSULE DR 40 MG PO (08:44)
[2024-06-21] MEDS: EZETIMIBE 10 MG TABLET PO (08:44)
[2024-06-21] MEDS: MULTIVITAMIN/MINERALS 1 TABLET 1 TAB PO (08:44)
[2024-06-21] MEDS: ASPIRIN 81 MG TABLET EC PO (08:44)
[2024-06-21] MEDS: VENLAFAXINE ER 75 MG CAPSULE 150 MG PO (08:44)
[2024-06-21] MEDS: SODIUM CHLORIDE 0.9 % (FLUSH) 10 ML SYRINGE 5 ML IVF (08:45)
[2024-06-21] MEDS: cefTRIAXone 2 GM in 0.9 % SODIUM CHLORIDE Mini-bag 100 ML IVPB (08:45)
--- NOTE | 2024-06-21 09:31 | CRLHL7_ITS ---
For Patients: As a result of the Century Cures Act, medical imaging exams and procedure reports are released immediately into your electronic medical record. You may view this report before your referring provider. If you have questions, please contact your health care provider. INDICATION: Left facial and neck swelling. COMPARISON: 06/20/2024 TECHNIQUE: CT of the neck with contrast. Multiplanar axial, coronal, and sagittal reformats were reconstructed. Intravenous contrast: 116 mL Isovue 370. FINDINGS: Lymph nodes: Bilateral prominent cervical lymph nodes, worse on the right side. The largest lymph node is on the right at level III a and measures 1.2 x 1.3 centimeters on series 3, image 40. It appears similar to prior. No zakia necrosis or abscess. Parotid and submandibular glands: Severely enlarged inflamed and edematous right parotid gland. No discrete mass identified. The left parotid gland is normal. Bilaterally symmetric submandibular glands. Thyroid gland: Normal. Tonsils: Normal. Airway: There is some worsening right posterolateral pharyngeal swelling with effacement of the airway. Normal subglottic trachea with an expiratory appearance. Parapharyngeal spaces: Mild effacement of the left parapharyngeal spaces. Paranasal sinus: As included within the field of view of the paranasal sinuses are well aerated and normal. Soft tissues: Significant right facial swelling. Significance bilateral submandibular and submental soft tissue swelling. Soft tissue swelling extends along the anterior neck but does not extend into the mediastinum. No discrete soft tissue abscess. Significant thickening of the right platysma. The degree of edema in the subcutaneous tissues is mildly worse. Arteries: Moderate bilateral carotid bulb atherosclerosis. Veins: No deep vein thrombosis. Lung apices: Respiratory motion. Expiratory appearance. Bones: No fractures. No focally destructive bone lesions. Advanced disc degeneration in the cervical spine. Included intracranial contents and mastoids: Normal. IMPRESSION: 1. Worsening right parapharyngeal and laryngeal edema with mild effacement of the airway just above the level of the vocal cords. 2. Slightly worse soft tissue right facial, bilateral submandibular, and bilateral anterior neck soft tissue swelling. No abscess or collection. No extension into the mediastinum. Please note that all CT scans at this facility use dose modulation, iterative reconstruction, and/or weight-based dosing when appropriate to reduce radiation dose to as low as reasonably achievable. Dictated by Jamilah Guzman MD @ 06/21/2024 10:12:36 AM (Electronically Signed)
--- NOTE | 2024-06-21 09:32 | P.ENTCN_ITS ---
HPI- ENT Consult Date of Consult Time Seen by Provider: 09:30 Date Seen: 06/21/24 Patient: [facility] Patient Consult date: 06/21/24 Requesting Physician: Other Primary Care Provider: Laly Dickey PA-C Consult Narrative Reason for consult: Right parotitis worsening Narrative: Anna Ortega is a 69 year old female who developed right buccal mucosal pain for a few days and then present to the ER last night with significant right parotid swelling. CT scan was consistent with parotitis without abscess in the pharyngeal airway was normal. She was treated overnight with ceftriaxone and metronidazole but is actually worse this morning. Pain now extends to the anterior neck above the sternoclavicular junction and the erythema and edema is present there as well as up onto her face. She also complains of sore throat. She has some trismus [facility] Medical History Dizziness ?R42 - Dizziness and giddiness (ICD-10) Hyperlipidemia ?E78.5 - Hyperlipidemia, unspecified (ICD-10) Anxiety ?F41.9 - Anxiety disorder, unspecified (ICD-10) Gastroesophageal reflux ?K21.9 - Gastro-esophageal reflux disease without esophagitis (ICD-10) Obstructive sleep apnea ?G47.33 - Obstructive sleep apnea (adult) (pediatric) (ICD-10) Peripheral autonomic neuropathy due to diabetes mellitus ?E11.43 - Type 2 diabetes mellitus with diabetic autonomic (poly)neuropathy (ICD-10) Diabetes mellitus ?E11.9 - Type 2 diabetes mellitus without complications (ICD-10) Chronic back pain ?M54.9 - Dorsalgia, unspecified (ICD-10) ?G89.29 - Other chronic pain (ICD-10) Pulmonary nodule ?R91.1 - Solitary pulmonary nodule (ICD-10) Hypertension ?I10 - Essential (primary) hypertension (ICD-10) Comminuted right humeral fracture with nonunion ?S42.351K - Displaced comminuted fracture of shaft of humerus, right arm, subsequent encounter for fracture with nonunion (ICD-10) Chronic renal failure, stage 3b ?N18.32 - Chronic kidney disease, stage 3b (ICD-10) Obesity ?E66.9 - Obesity, unspecified (ICD-10) Heart failure with preserved ejection fraction ?I50.30 - Unspecified diastolic (congestive) heart failure (ICD-10) COPD (chronic obstructive pulmonary disease) ?J44.9 - Chronic obstructive pulmonary disease, unspecified (ICD-10) Surgical History Hx of shoulder surgery ?Z98.890 - Other specified postprocedural states (ICD-10) History of parathyroidectomy ?Z98.890 - Other specified postprocedural states (ICD-10) ?Z90.89 - Acquired absence of other organs (ICD-10) Family History Brother Diabetes Hx of CABG Sister Diabetes Father Lung cancer Prostate cancer Mother Lung cancer Heart disease Social History Narrative: Anna lives in [place] with her brother. She reports generally this has been going well. She has some disability because of her remote history of right shoulder injury, poorly healing humeral fracture. She walks without assistive device. She quit smoking about 21 years ago. She does not drink alcohol. Her daughter Lea is healthcare power of tax associate attorney. Code status is full What is your current living situation?: I presently have a place to live Problems where you live: no known problems Problems where you live details: N/A In the past 12 months, utilities in danger of being shut off: no In past 12 months, lack of transportation kept you from medical appts, meetings, work, or getting things needed for daily living: no In the past 12 mos, have been you worried that your food would run out before you had money to buy more?: never true In the past 12 mos, the food you bought just didn't last and you didn't have money to buy more?: never true Highest level of school completed/degree received: high school graduate Smoking Status: Former smoker What tobacco products do you use: cigarettes Smoking quit date/years: >15 years ago Do you use any of these nicotine containing products: None How often do you have a drink containing alcohol: never How often do you have six or more drinks on one occasion: Never AUDIT-C Alcohol total score: 0 Non-prescribed substance use: denies use Caffeine: Yes How often does anyone, including family, friends and others, physically hurt you : never How often does anyone, including family, friends and others, insult or talk down to you: never How often does anyone, including family, friends and others, threaten you with harm: never How often does anyone, including family, friends and others, scream or curse at you: never service: No Meds Home Medications and Allergies Home Medications ?Medication ?Instructions ?Recorded ?Confirmed ?Type albuterol sulfate 90 mcg/actuation 2 puff inhalation Q4H PRN 10/10/23 06/20/24 History aerosol inhaler amitriptyline 50 mg tablet 150 mg PO HS 10/10/23 06/20/24 History aspirin 81 mg tablet,delayed 81 mg PO DAILY 10/10/23 06/20/24 History release atorvastatin 80 mg tablet 80 mg PO DAILY 10/10/23 06/20/24 History diclofenac sodium 1 % topical gel 4 g topical QID PRN 10/10/23 06/20/24 History ezetimibe 10 mg tablet 10 mg PO DAILY 10/10/23 06/20/24 History gabapentin 300 mg capsule 300 mg PO HS 10/10/23 06/20/24 History multivitamin with minerals 1 cap PO DAILY 10/10/23 06/20/24 History omeprazole 40 mg capsule,delayed 40 mg PO DAILY 10/10/23 06/20/24 History release semaglutide 1 mg/dose (4 mg/3 mL) 1 mg subcut .weekly 10/10/23 06/20/24 History subcutaneous pen injector tiotropium bromide 2.5 2 inh inhalation Q24H 10/10/23 06/20/24 History mcg/actuation mist for inhalation (Spiriva Respimat) torsemide 20 mg tablet 80 mg PO DAILY 10/10/23 06/20/24 History tramadol 50 mg tablet 50 mg PO HS PRN 10/10/23 06/20/24 History venlafaxine 150 mg 150 mg PO DAILY 10/10/23 06/20/24 History capsule,extended release 24 hr losartan 50 mg tablet 50 mg PO DAILY 10/11/23 06/20/24 History Allergies Allergy/AdvReac Type Severity Reaction Status Date / Time adhesive tape Allergy Unknown Verified 06/20/24 21:19 Penicillins Allergy Unknown Verified 06/20/24 21:19 Exam Narrative: Exam Narrative: General skin neuro respiratory gait peripheral vascular vocal quality skin of head neck are all negative except fairly significant facial swelling on the right side over the parotid extending up anteriorly towards the nasal labial fold and inferiorly to the sternoclavicular notch. The erythema is fairly mild but the edema over the parotid is massive. Oral cavity oropharynx she is tender on the right oropharynx to Q-tip palpation left side is not. The parotid duct is visualized and appears to have a small raw area on the superior aspect of may be consistent with a accidental bite trauma and unable to milk any purulent drainage from the duct orifice. She is exquisitely tender over the parotid white count is worse today. Per patient she is much worse today Const: Vital Signs, click to edit/add: Vital Signs - 24 hr 06/20/24 15:33 06/20/24 20:59 06/20/24 20:59 Temperature 98.6 F 98.1 F Pulse Rate [Pulse Oximeter] 69 92 Respiratory Rate 18 18 18 Blood Pressure [Le ft Arm] Blood Pressure [Ri ght Arm] 137/72 Blood Pressure [Ri ght Upper Arm] 110/75 Pulse Oximetry 98 94 98 Oxygen Delivery Me thod Room Air Room Air Room Air 06/20/24 23:12 06/20/24 23:12 06/20/24 23:12 Temperature 99.5 F Pulse Rate [Pulse Oximeter] 90 90 Respiratory Rate 18 18 18 Blood Pressure [Le ft Arm] 114/61 Blood Pressure [Ri ght Arm] Blood Pressure [Ri ght Upper Arm] Pulse Oximetry 95 95 Oxygen Delivery Me thod Room Air Room Air 06/21/24 03:34 06/21/24 05:57 06/21/24 06:54 Temperature 100.2 F H 99.7 F H 100.2 F H Pulse Rate [Pulse Oximeter] 94 98 Respiratory Rate 18 18 Blood Pressure [Le ft Arm] 115/61 Blood Pressure [Ri ght Arm] 143/82 H Blood Pressure [Ri ght Upper Arm] Pulse Oximetry 94 90 Oxygen Delivery Me thod Room Air Room Air 06/21/24 06:56 Temperature Pulse Rate [Pulse Oximeter] Respiratory Rate Blood Pressure [Le ft Arm] Blood Pressure [Ri ght Arm] Blood Pressure [Ri ght Upper Arm] Pulse Oximetry 90 Oxygen Delivery Me thod Room Air ENT-CN: Result Labs Labs: Short CBC 06/20/24 06/21/24 Range/Units 16:21 06:06 WBC 18.59 H 20.17 H (4.50-11.00) K/uL Hgb 11.8 L 11.3 L (12.0-16.0) gm/dL Hct 35.4 33.2 (33.0-51.0) % Plt Count 302 257 (140-440) K/uL BMP 06/20/24 06/21/24 16:21 06:06 Sodium 139 137 Potassium 3.5 L 3.8 Chloride 102 103 Carbon Dioxide 28 24 BUN 29 24 Creatinine 1.9 H 1.4 Glucose 140 H 165 H Calcium 9.0 8.6 Assessment and Plan Assessment and plan (1) Acute parotitis: Problem comment: Ceftriaxone and metronidazole, MRSA screening, analgesia, stimulate saliva, milk parotid gland as tolerated. Dr. Ohara is available for consult June 21 in the clinic. Status: Acute Plan Assessment mass severe right parotitis possibly being beginning to involve surrounding soft tissue in the neck. Of most concern would be the trismus and sore right tonsillar area. We are waiting MRSA screening but I would recommend initiating vanco immediately and I would recommend rescanning to assess her airway. Currently airway is adequate but I would like to see the level of increase in swelling overnight. She would likely best be served in a different facility because of potential for airway compromise.
[2024-06-21 10:00] LABS: C Reactive Protein* 16.6 mg/dL (0.5-1.0)
[2024-06-21] MEDS: VANCOMYCIN 2 GM/400 ML 2 GM/400 ML PIGGYBACK IVPB (10:28)
[2024-06-21 11:01] VITALS: BP 144/67; PULSE 100; RESP 20; TEMP 38.7; O2SAT 93
--- NOTE | 2024-06-21 11:54 | PC.NURSE ---
At approximately 1100 patient was incontinent of a large amount of urine and neurological changes were noted (pt. reported feeling foggy, having a headache and was talking to people who were not there). Dr. De Jesus notified and immediately arrived at bedside to evaluate patient. Patient taken to CT Scanner, and then to OR for emergent intubation.
--- NOTE | 2024-06-21 12:03 | P.ENTPN_ITS ---
ENT-PN: Subj Subjective Date Seen: 06/21/24 Interval history: Reviewed CT with hospitalist. Progression of parotitis but now also with edema affecting the hypopharyngeal airway just above the larynx. There was significant impingement on the airway. Patient is currently not short of breath Progress Note: A&P Assessment and plan (1) Acute parotitis: Problem details: Ceftriaxone and metronidazole, MRSA screening, analgesia, stimulate saliva, milk parotid gland as tolerated. Dr. Ohara is available for consult June 21 in the clinic. Status: Acute Plan Right-sided parotitis progressing to right-sided neck cellulitis with edema in the hypopharynx impinging on the right side of the airway of just above the larynx. Recommended intubation and then patient will likely be transferred. Intubation would be to protect the airway as she is getting progressively worse. Saw daniel pozo on the way the operating room and in discussed risks with her of intubation including possibility of tracheotomy. See operative report Time Spent With Patient Total time spent: 20 Exam Narrative: Exam Narrative: Not performed Const: Vital Signs, click to edit/add: Vital Signs - 24 hr 06/20/24 15:33 06/20/24 20:59 06/20/24 20:59 Temperature 98.6 F 98.1 F Pulse Rate [Pulse Oximeter] 69 92 Respiratory Rate 18 18 18 Blood Pressure [Le ft Arm] Blood Pressure [Ri ght Arm] 137/72 Blood Pressure [Ri ght Upper Arm] 110/75 Pulse Oximetry 98 94 98 Oxygen Delivery Me thod Room Air Room Air Room Air 06/20/24 23:12 06/20/24 23:12 06/20/24 23:12 Temperature 99.5 F Pulse Rate [Pulse Oximeter] 90 90 Respiratory Rate 18 18 18 Blood Pressure [Le ft Arm] 114/61 Blood Pressure [Ri ght Arm] Blood Pressure [Ri ght Upper Arm] Pulse Oximetry 95 95 Oxygen Delivery Me thod Room Air Room Air 06/21/24 03:34 06/21/24 05:57 06/21/24 06:54 Temperature 100.2 F H 99.7 F H 100.2 F H Pulse Rate [Pulse Oximeter] 94 98 Respiratory Rate 18 18 Blood Pressure [Le ft Arm] 115/61 Blood Pressure [Ri ght Arm] 143/82 H Blood Pressure [Ri ght Upper Arm] Pulse Oximetry 94 90 Oxygen Delivery Me thod Room Air Room Air 06/21/24 06:56 06/21/24 11:01 Temperature 101.6 F H Pulse Rate [Pulse Oximeter] 100 Respiratory Rate 20 Blood Pressure [Le ft Arm] 144/67 H Blood Pressure [Ri ght Arm] Blood Pressure [Ri ght Upper Arm] Pulse Oximetry 90 93 Oxygen Delivery Me thod Room Air Room Air ENT-PN: Obj Labs Labs: Laboratory Results - last 24 hr 06/20/24 06/21/24 06/21/24 16:21 06:06 09:18 WBC 18.59 H 20.17 H RBC 3.87 L 3.67 L Hgb 11.8 L 11.3 L Hct 35.4 33.2 MCV 92 91 MCH 31 31 MCHC 33 34 RDW Coeff of Isiah 12.7 12.5 Plt Count 302 257 Neut % (Auto) 77.7 H 81.1 H Lymph % (Auto) 12.6 L 7.5 L [place] % (Auto) 8.4 9.4 Eos % (Auto) 0.9 1.0 Baso % (Auto) 0.3 0.3 Neut # (Auto) 14.40 H 16.40 H Lymph # (Auto) 2.30 1.50 [place] # (Auto) 1.60 H 1.90 H Eos # (Auto) 0.20 0.20 Baso # (Auto) 0.10 0.10 Abs Immat Gran (auto) 0.00 0.10 Imm/Tot Granulo (auto) 0.1 0.7 Sodium 139 137 Potassium 3.5 L 3.8 Chloride 102 103 Carbon Dioxide 28 24 Anion Gap 9 10 BUN 29 24 Creatinine 1.9 H 1.4 Estimated Creat Clear 28.38 38.52 Estimated GFR 28 40 Glucose 140 H 165 H Calcium 9.0 8.6 C-Reactive Protein 16.6 H Procalcitonin 0.12 SARS-CoV-2 (PCR) Negative SARS-CoV-2 Influenza Type A (PCR) Negative PCR FLU A Influenza Type B (PCR) Negative PCR FLU B RSV (PCR) Negative PCR RSV Lab Acknowledgement Test Added
--- NOTE | 2024-06-21 12:06 | W.PM.ENTPROC ---
Procedure Note Date of procedure: 06/21/24 Procedure: Preoperative diagnosis is right cervical cellulitis, right parotitis, edema right hypopharynx with partial occlusion of lower right airway Postoperative diagnosis same Procedure is direct laryngoscopy and standby for anesthesia intubation The patient was brought the operating room prepped and draped in usual fashion the emergency trach it was set up. Anesthesia inserted the glide scope which I removed and I viewed on the monitor there is clearly significant hypo pharyngeal edema. Once that was moved out of the way the glottic opening itself was widely patent and anesthesia was able to insert the tube without difficulty. The airway was secured and the patient will be prepped for transfer including Landa catheter and pneumatic stockings. Anesthesia Type: General Surgeon: Lev
--- NOTE | 2024-06-21 13:07 | P.ANES_ITS ---
Anesthesia Charges Start Date/Time Anesthesia Start Date: 06/21/24 Anesthesia Start Time: 11:28 Stop Date/Time Anesthesia Stop Date: 06/21/24 Anesthesia Stop Time: 13:00 Summary Emergency: MDA Extremes of Age - Over 70 or under 1: MDA Coding CPT Codes CPT Codes: ANESTH PROCEDURE ON MOUTH - 48911 ([id number]) P3 - PATIENT W/SEVERE SYS DISEASE, QK - BATTERY TESTER AND REPAIRER 2-4 CNCRNT ANES PROC, QX - ACADEMIC TUTOR SVC W/ MD MED DIRECTION Additional Codes: Summary - Emergency: MDA ([id number]) Summary - Extremes of Age - Over 70 or under 1: MDA ([id number])
--- NOTE | 2024-06-21 13:07 | P.ANES_ITS ---
Anesthesia Charges Start Date/Time Anesthesia Start Date: 06/21/24 Anesthesia Start Time: 11:28 Stop Date/Time Anesthesia Stop Date: 06/21/24 Anesthesia Stop Time: 13:00 Summary Emergency: TELEPHONE ENGINEER Extremes of Age - Over 70 or under 1: TELEPHONE ENGINEER Coding CPT Codes CPT Codes: ANESTH PROCEDURE ON MOUTH - 65364 ([id number]) P3 - PATIENT W/SEVERE SYS DISEASE, QK - HEALTH WORKER 2-4 CNCRNT ANES PROC, QX - TELEPHONE ENGINEER SVC W/ MD MED DIRECTION Additional Codes: Summary - Extremes of Age - Over 70 or under 1: TELEPHONE ENGINEER ([id number]) Summary - Emergency: TELEPHONE ENGINEER ([id number])
--- NOTE | 2024-06-21 13:07 | W.ANESCHARGE ---
Anesthesia Charges Start Date/Time Anesthesia Start Date: 06/21/24 Anesthesia Start Time: 11:28 Stop Date/Time Anesthesia Stop Date: 06/21/24 Anesthesia Stop Time: 13:00 Summary Emergency: MDA Extremes of Age - Over 70 or under 1: MDA Coding CPT Codes CPT Codes: ANESTH PROCEDURE ON MOUTH - 05159 ([id number]) P3 - PATIENT W/SEVERE SYS DISEASE, QK - PUMP TESTER 2-4 CNCRNT ANES PROC, QX - AUXILIARY POWER EQUIPMENT OPERATOR SVC W/ MD MED DIRECTION Additional Codes: Summary - Emergency: MDA ([id number]) Summary - Extremes of Age - Over 70 or under 1: MDA ([id number])
--- NOTE | 2024-06-21 13:07 | W.ANESCHARGE ---
Anesthesia Charges Start Date/Time Anesthesia Start Date: 06/21/24 Anesthesia Start Time: 11:28 Stop Date/Time Anesthesia Stop Date: 06/21/24 Anesthesia Stop Time: 13:00 Summary Emergency: GERMAN TUTOR Extremes of Age - Over 70 or under 1: GERMAN TUTOR Coding CPT Codes CPT Codes: ANESTH PROCEDURE ON MOUTH - 65535 ([id number]) P3 - PATIENT W/SEVERE SYS DISEASE, QK - APPLE THINNER 2-4 CNCRNT ANES PROC, QX - GERMAN TUTOR SVC W/ MD MED DIRECTION Additional Codes: Summary - Extremes of Age - Over 70 or under 1: GERMAN TUTOR ([id number]) Summary - Emergency: GERMAN TUTOR ([id number])
--- NOTE | 2024-06-21 13:23 | PM.DST ---
Transfer Discharge Sum: Prov Provider Time Seen by Provider: 08:50 Date Seen: 06/21/24 Date of admission: 06/20/24 20:05 Primary care physician: Laly Dickey PA-C Consults: 06/21/24 09:17 Consult to Physician [CONS] Routine Comment: Consulting Provider: Kuldip Ohara Has provider been notified: Yes Attending physician on discharge: Caprice De Jesus Discharging clinician: Caprice De Jesus Anticipated date of transfer: 06/21/24 Receiving physician/facility: [facility], Dr. Bunn DS: Diagnosis Discharge Diagnosis (1) Airway compromise: Status: Suspected Problem details: - Impending airway compromise, CT soft tissue neck: 1. Worsening right parapharyngeal and laryngeal edema with mild effacement of the airway just above the level of the vocal cords. (2) Urinary incontinence: Status: Acute Problem details: - Acute urinary incontinence in the setting of hydrocephalus, metabolic encephalopathy, and impending airway compromise (3) Acute parotitis: Status: Acute Problem details: Ceftriaxone and metronidazole, MRSA screening, analgesia, stimulate saliva, milk parotid gland as tolerated. Dr. Ohara is available for consult June 21 in the clinic. - Worsening edema, induration, AMS, increasing WBC, worsening and concerning findings on repeat soft tissue CT neck - intubate and transfer to [place] (4) Leukocytosis: Status: Acute (5) Diabetes mellitus: Status: Chronic Problem details: Continue to monitor. (6) Chronic renal insufficiency: Status: Acute Problem details: ARF on CKD stage 3b. Creatinine is above baseline at 1.9. Possibly due to poor oral intake recently. Monitor (7) Obstructive sleep apnea: Status: Chronic Problem details: Stopped using CPAP years ago. Recommend re-evaluation with sleep specialist. Monitor for complications related to opioid use for pain (8) Obesity: Status: Chronic Problem details: Has had some weight loss on Ozempic (9) COPD (chronic obstructive pulmonary disease): Status: Acute Problem details: Currently appears to be well compensated. (10) Heart failure with preserved ejection fraction: Status: Chronic Problem details: Chronic, stable. Currently appears well compensated. (11) Acute metabolic encephalopathy: Status: Acute Transfer Discharge Sum: Med Medications Active and Home Medications: Home Medications albuterol sulfate 90 mcg/actuation aerosol inhaler 2 puff inhalation Q4H PRN 10/10/23 [History Confirmed 06/20/24] amitriptyline 50 mg tablet 150 mg PO HS 10/10/23 [History Confirmed 06/20/24] aspirin 81 mg tablet,delayed release 81 mg PO DAILY 10/10/23 [History Confirmed 06/20/24] atorvastatin 80 mg tablet 80 mg PO DAILY 10/10/23 [History Confirmed 06/20/24] diclofenac sodium 1 % topical gel 4 g topical QID PRN 10/10/23 [History Confirmed 06/20/24] ezetimibe 10 mg tablet 10 mg PO DAILY 10/10/23 [History Confirmed 06/20/24] gabapentin 300 mg capsule 300 mg PO HS 10/10/23 [History Confirmed 06/20/24] multivitamin with minerals 1 cap PO DAILY 10/10/23 [History Confirmed 06/20/24] omeprazole 40 mg capsule,delayed release 40 mg PO DAILY 10/10/23 [History Confirmed 06/20/24] semaglutide 1 mg/dose (4 mg/3 mL) subcutaneous pen injector 1 mg subcut .weekly 10/10/23 [History Confirmed 06/20/24] tiotropium bromide 2.5 mcg/actuation mist for inhalation (Spiriva Respimat) 2 inh inhalation Q24H 10/10/23 [History Confirmed 06/20/24] torsemide 20 mg tablet 80 mg PO DAILY 10/10/23 [History Confirmed 06/20/24] tramadol 50 mg tablet 50 mg PO HS PRN 10/10/23 [History Confirmed 06/20/24] venlafaxine 150 mg capsule,extended release 24 hr 150 mg PO DAILY 10/10/23 [History Confirmed 06/20/24] losartan 50 mg tablet 50 mg PO DAILY 10/11/23 [History Confirmed 06/20/24] Active Medications Acetaminophen (Acetaminophen 325 Mg Tablet) 650 mg PO Q4H PRN Last Admin: 06/21/24 03:28 Dose: 650 mg Albuterol (Albuterol Inhaler) 2 puff IH Q4H PRN Amitriptyline HCl (Amitriptyline 25 Mg Tablet) 100 mg PO [facility] Last Admin: 06/20/24 21:09 Dose: Not Given Aspirin (Aspirin 81 Mg Tablet Ec) 81 mg PO DAILY [facility] Last Admin: 06/21/24 08:44 Dose: 81 mg Atorvastatin Calcium (Atorvastatin Calcium 40 Mg Tablet) 80 mg PO DAILY [facility] Last Admin: 06/21/24 08:44 Dose: 80 mg Ezetimibe (Ezetimibe 10 Mg Tablet) 10 mg PO DAILY [facility] Last Admin: 06/21/24 08:44 Dose: 10 mg Enoxaparin Sodium (Enoxaparin 40 Mg/0.4 Ml Inj) 40 mg SUBCUT [facility] Last Admin: 06/20/24 21:10 Dose: 40 mg Gabapentin (Gabapentin 300 Mg Capsule) 300 mg PO HS [facility] Last Admin: 06/20/24 21:08 Dose: 300 mg Ceftriaxone Sodium 2 gm/ (Sodium Chloride) 100 mls @ 200 mls/hr IVPB Q24H [facility] Last Admin: 06/21/24 08:45 Dose: 200 mls/hr Metronidazole (Metronidazole) 500 mg in 100 mls @ 100 mls/hr IVPB Q8H [facility] Last Infusion: 06/21/24 06:53 Dose: Infused Vancomycin/PEG/NADA/Lysine/Water (Vancomycin 1.75 Gm/350 Ml) 1.75 gm in 350 mls @ 175 mls/hr IVPB Q24H [facility] IV Miscellaneous Supplies (Pharmacist Consult) 1 each MC Q24H [facility]; Protocol Insulin Aspart (Insulin Aspart 100 Unit/Ml) 0 unit SUBCUT [facility]; Protocol Last Admin: 06/21/24 08:44 Dose: Not Given Losartan Potassium (Losartan Potassium 50 Mg Tablet) 50 mg PO DAILY [facility] Last Admin: 06/21/24 08:44 Dose: 50 mg Melatonin (Melatonin 3 Mg Tablet) 3 mg PO HS PRN Multivitamins/Minerals (Multivitamin/Minerals 1 Tablet) 1 tab PO DAILY [facility] Last Admin: 06/21/24 08:44 Dose: 1 tab Omeprazole (Omeprazole [address]) 40 mg PO DAILY [facility] Last Admin: 06/21/24 08:44 Dose: 40 mg Ondansetron HCl (Ondansetron 2 Mg/Ml Inj) 4 mg IVP Q4H PRN PRN Reason: Nausea Oxycodone HCl (Oxycodone 5 Mg Tablet) 2.5 - 5 mg PO Q2H PRN PRN Reason: Pain Last Admin: 06/21/24 05:21 Dose: 5 mg Senna/Docusate Sodium (Sennosides/Docusate Tablet) 1 - 2 tab PO BID PRN Sodium Chloride (Sodium Chloride 0.9 % (Flush) 10 Ml Syringe) 5 ml IVF BID [facility] Last Admin: 06/21/24 08:45 Dose: 5 ml Torsemide (Torsemide 20 Mg Tablet) 80 mg PO DAILY [facility] Last Admin: 06/21/24 08:44 Dose: 80 mg Tramadol HCl (Tramadol Hcl 50 Mg Tablet) 50 mg PO HS PRN Last Admin: 06/20/24 23:08 Dose: 50 mg Venlafaxine HCl (Venlafaxine Er 75 Mg Capsule) 150 mg PO DAILY [facility] Last Admin: 06/21/24 08:44 Dose: 150 mg Transfer Discharge Sum: Hosp Hospital Course Hospital course: Per H&P: Anna Ortega is a 69 year old female with diabetes, COPD, obesity, JOSIAH admitted to the hospital with painful swelling of her left right cheek. At she 1st noted that her whole mouth/mucosa with sore for the past several days. That has gotten better now but in the last day she developed fairly severe painful swelling of the right cheek just in front of her right ear. She is not aware of having a fever. She has not had this type of problem before. She reports no other recent respiratory symptoms or other symptoms of illness. She has been diagnosed with hydrocephalus and is pending placement of a [facility]IST[facility] shunt at [facility] on July 06. She has a penicillin allergy. She was admitted on ceftriaxone and metronidazole IV. Anna had persistent fever, white count is increasing, and exam showed worsening edema and induration all the way into the level of the neck. Patient was alert and able to converse without difficulty or hoarseness. ENT consulted and recommended addition of vancomycin and repeat CT soft tissue neck. This was done stat. When she was brought back to her room, she was incontinent of urine on the floor which is a new symptom. She was also more sleepy, but had no focal neurologic symptoms or clinical signs of airway compromise. The repeat CT soft tissue neck was concerning for potentially impending airway compromise for which I called Dr. Cruz. He met emergently in the OR for intubation. This was successful. I spoke with the transfer team at [place] who accepted her to the ICU there. She is being transferred via helicopter. I spoke with the patient just prior to intubation to let her know the plan and I spoke with her daughter, Yesica, about the plan and her condition both over the phone and in person when she arrived. Time Spent with Patient Time attestation: Total time spent providing and/or coordinating transfer services: Today I spent 90 minutes seeing the patient, reviewing [facility] and [facility] notes/diagnostics/labs, discussing the care plan with our care team that includes social work, PT/OT, pharmacy, RT, longterm and documenting my impressions and plan in the medical record, discussing the case with ENT 4 separate times, discussing case with [place] for transfer, coordinating and arranging transfer by air to [place]. Exam Narrative: Exam Narrative: First exam at 8:50 a.m.: General: No acute distress. Awake, alert, oriented x3. No pallor. No jaundice. Face: Significant right-sided swelling, erythema, tenderness, and induration over the right parotid gland and extending into the right face, right chin and neck, and into the right upper chest. These findings also slightly crossed midline anteriorly in the neck. Oropharynx: Clear. Trismus noted. Mucous membranes moist. Cardiovascular: Regular rate and rhythm. No murmurs, gallops, or rubs. Respiratory: No respiratory distress. Clear to auscultation bilaterally. No wheezes or crackles. Second exam around 10:00 a.m. General: Sleepy, awake, able to answer questions appropriately, oriented x3. No pallor. No jaundice. Oropharynx: Clear. Mucous membranes moist. Trismus still present. Cardiovascular: Regular rate and rhythm. No murmurs, gallops, or rubs. Respiratory: No respiratory distress. Clear to auscultation bilaterally. No wheezes or crackles. Neuro: There are no focal deficits. Romberg is negative. Gait is within normal limits. Cranial nerves 2-12 are intact. Extraocular movements are full. No nystagmus. No facial asymmetry. Tongue is midline. Peripheral vision and vision are grossly intact. Strength is 5/5 in all 4 extremities. Light touch sensation is intact in face body and extremities. Coordination is intact in upper and lower extremities. Const: Vital Signs, click to edit/add: Vital Signs - 24 hr 06/20/24 15:33 06/20/24 20:59 06/20/24 20:59 Temperature 98.6 F 98.1 F Pulse Rate [Pulse Oximeter] 69 92 Respiratory Rate 18 18 18 Blood Pressure [Le ft Arm] Blood Pressure [Ri ght Arm] 137/72 Blood Pressure [Ri ght Upper Arm] 110/75 Pulse Oximetry 98 94 98 Oxygen Delivery Me thod Room Air Room Air Room Air 06/20/24 23:12 06/20/24 23:12 06/20/24 23:12 Temperature 99.5 F Pulse Rate [Pulse Oximeter] 90 90 Respiratory Rate 18 18 18 Blood Pressure [Le ft Arm] 114/61 Blood Pressure [Ri ght Arm] Blood Pressure [Ri ght Upper Arm] Pulse Oximetry 95 95 Oxygen Delivery Me thod Room Air Room Air 06/21/24 03:34 06/21/24 05:57 06/21/24 06:54 Temperature 100.2 F H 99.7 F H 100.2 F H Pulse Rate [Pulse Oximeter] 94 98 Respiratory Rate 18 18 Blood Pressure [Le ft Arm] 115/61 Blood Pressure [Ri ght Arm] 143/82 H Blood Pressure [Ri ght Upper Arm] Pulse Oximetry 94 90 Oxygen Delivery Hi thod Room Air Room Air 06/21/24 06:56 06/21/24 11:01 Temperature 101.6 F H Pulse Rate [Pulse Oximeter] 100 Respiratory Rate 20 Blood Pressure [Le ft Arm] 144/67 H Blood Pressure [Ri ght Arm] Blood Pressure [Ri ght Upper Arm] Pulse Oximetry 90 93 Oxygen Delivery Me thod Room Air Room Air Transfer Discharge Sum: Data Data Completed and Pending Completed studies during hospitalization: Ordering Physician: Hernandez Bonilla M.D. Date of Service: 06/20/24 Procedure(s): CT soft tissue neck w con Accession Number(s): [id number] cc: Laly Dickey PA-C; Hernandez Bonilla M.D.~ For Patients: As a result of the Cures Act, medical imaging exams and procedure reports are released immediately into your electronic medical record. You may view this report before your referring provider. If you have questions, please contact your health care provider. INDICATION: Left facial and neck swelling. TECHNIQUE: CT of the neck with Isovue 370 iodinated contrast agent. COMPARISON: None. FINDINGS: Nasopharynx: Within normal limits. Oropharynx: Within normal limits. Oral cavity: Within normal limits. Supraglottic, glottic and infraglottic larynx: Within normal limits. Hypopharynx: Within normal limits. Airway including the trachea: Within normal limits. Salivary glands and thyroid gland: Asymmetric enlargement and hyper enhancement involving right-sided parotid gland substance. There is adjacent surrounding inflammatory fat stranding. No organized fluid collections. No radiodense sialolith. Lymph nodes and other cervical soft tissues: Prominent right-sided upper cervical lymphadenopathy, likely reactive. Vascular Structures: Within normal limits. Osseous structures: No acute osseous abnormalities. Ankylosis along the disc spaces anteriorly by paravertebral osteophytes, as well as posteriorly along most of the cervical facets. C5-6 disc degeneration and disc vacuum phenomenon. C6-7 advanced disc height loss and endplate remodeling. Grade 1 anterolisthesis C6-7. Multilevel uncovertebral and facet arthrosis with high-grade neural foraminal stenosis at C4-5 on the right, C5-6 on the right, C6-7 bilaterally, and [id number] elsewhere. Chronic fracture deformity involving the right humerus with advanced degenerative changes involving the glenohumeral joint. Paranasal sinuses and mastoid air cells: Within normal limits. Teeth: Within normal limits. Imaged orbits and intracranial contents: Within normal limits. Imaged chest wall, mediastinum and upper lungs: Hazy ground-glass opacities within the right greater than left upper lungs, nonspecific but may be due to reduced inspiration. IMPRESSION: 1. Findings consistent with right-sided parotitis. No radiodense sialolith along the course of Stensen`s duct. No abscess. Please note that all CT scans at this facility use dose modulation, iterative reconstruction, and/or weight-based dosing when appropriate to reduce radiation dose to as low as reasonably achievable. Dictated by Dustin Botello MD @ 06/20/2024 5:58:50 PM (Electronically Signed) Ordering Physician: Caprice De Jesus M.D. Date of Service: 06/21/24 Procedure(s): CT soft tissue neck w con Accession Number(s): [id number] cc: Laly Dickey PA-C; Caprice De Jesus M.D.~ For Patients: As a result of the Century Cures Act, medical imaging exams and procedure reports are released immediately into your electronic medical record. You may view this report before your referring provider. If you have questions, please contact your health care provider. INDICATION: Left facial and neck swelling. COMPARISON: 06/20/2024 TECHNIQUE: CT of the neck with contrast. Multiplanar axial, coronal, and sagittal reformats were reconstructed. Intravenous contrast: 116 mL Isovue 370. FINDINGS: Lymph nodes: Bilateral prominent cervical lymph nodes, worse on the right side. The largest lymph node is on the right at level III a and measures 1.2 x 1.3 centimeters on series 3, image 40. It appears similar to prior. No zakia necrosis or abscess. Parotid and submandibular glands: Severely enlarged inflamed and edematous right parotid gland. No discrete mass identified. The left parotid gland is normal. Bilaterally symmetric submandibular glands. Thyroid gland: Normal. Tonsils: Normal. Airway: There is some worsening right posterolateral pharyngeal swelling with effacement of the airway. Normal subglottic trachea with an expiratory appearance. Parapharyngeal spaces: Mild effacement of the left parapharyngeal spaces. Paranasal sinus: As included within the field of view of the paranasal sinuses are well aerated and normal. Soft tissues: Significant right facial swelling. Significance bilateral submandibular and submental soft tissue swelling. Soft tissue swelling extends along the anterior neck but does not extend into the mediastinum. No discrete soft tissue abscess. Significant thickening of the right platysma. The degree of edema in the subcutaneous tissues is mildly worse. Arteries: Moderate bilateral carotid bulb atherosclerosis. Veins: No deep vein thrombosis. Lung apices: Respiratory motion. Expiratory appearance. Bones: No fractures. No focally destructive bone lesions. Advanced disc degeneration in the cervical spine. Included intracranial contents and mastoids: Normal. IMPRESSION: 1. Worsening right parapharyngeal and laryngeal edema with mild effacement of the airway just above the level of the vocal cords. 2. Slightly worse soft tissue right facial, bilateral submandibular, and bilateral anterior neck soft tissue swelling. No abscess or collection. No extension into the mediastinum. Please note that all CT scans at this facility use dose modulation, iterative reconstruction, and/or weight-based dosing when appropriate to reduce radiation dose to as low as reasonably achievable. Dictated by Jamilah Guzman MD @ 06/21/2024 10:12:36 AM (Electronically Signed) Discharge Plan Discharge Disposition: [facility] Discharge Location: [facility] Date of Admission: 06/20/24 20:05 Attending Provider on Discharge: Caprice De Jesus Primary Care Provider: Laly Dickey Condition: Stable Discharge Orders: Transfer of Care to Other Hospital (ORDER); Ordered 06/21/24 Ordered By: Caprice De Jesus Discharge Comments: Intubated Oxygen: Yes Oxygen Delivery Method: ventillator Urinary Catheter: No Services not available here: ICU, ENT (parotid gland), Neurosurgery
== END 2024-06-21 12:44 | disposition short-term general hospital (02) | DRG 154 ==
LOC: ED 18:47 → MEDSURG 18:52
PROVIDERS: Family Medicine; Otolaryngology; Admitting Provider Family Medicine; Emergency Provider Family Medicine; PCP Internal Medicine; Visit Provider Family Medicine
PROC: 0BH17EZ Insertion of Endotracheal Airway into Trachea, Via Natural or Artificial Opening (ICD-10-PCS; principal; 2024-06-21 11:30)
DX: K11.21 Acute sialoadenitis (principal); G93.41 Metabolic encephalopathy; L03.221 Cellulitis of neck; I13.0 Hypertensive heart and chronic kidney disease with heart failure and stage 1 through stage 4 chronic kidney disease, or unspecified chronic kidney disease; I50.32 Chronic diastolic (congestive) heart failure; G91.9 Hydrocephalus, unspecified; J38.4 Edema of larynx; J39.2 Other diseases of pharynx; E11.43 Type 2 diabetes mellitus with diabetic autonomic (poly)neuropathy; R32 Unspecified urinary incontinence; D72.829 Elevated white blood cell count, unspecified; E11.22 Type 2 diabetes mellitus with diabetic chronic kidney disease; N18.32 Chronic kidney disease, stage 3b; Z79.85 Long-term (current) use of injectable non-insulin antidiabetic drugs; E66.9 Obesity, unspecified; Z68.34 Body mass index [BMI] 34.0-34.9, adult; G47.33 Obstructive sleep apnea (adult) (pediatric); J44.9 Chronic obstructive pulmonary disease, unspecified; J98.8 Other specified respiratory disorders; Z79.82 Long term (current) use of aspirin; F41.9 Anxiety disorder, unspecified; Z87.891 Personal history of nicotine dependence
CPT/HCPCS: 00170; 36415; 70491; 80048; 82962; 84145; 85025; 86140; 87081; 87631; 99100; 99140; 99284; A4314; A9153; A9270; J0330; J0696; J1100; J1650; J1836; J2250; J2371; J2405; J2704; J3010; J3372; J7030; Q9967

== ENCOUNTER 2024-07-17 12:03 | Inpatient (IN) | payer MEDICARE, BC, SELFPAY ==
[2024-07-17] VITALS (10 sets, daily range): BP systolic 108–130; BP diastolic 50–85; PULSE 84–96; RESP 16–18; TEMP 36.4–37.1; O2SAT 94–99; BMI 37.1; BMI 37.3
--- NOTE | 2024-07-17 12:36 | ED.GENADULT ---
HPI - General Adult General Time Seen by Provider: 12:36 Date Seen: 07/17/24 Chief complaint: Ear/Nose/Throat Problem Stated complaint: Staph infection throat R side Time Seen by Provider: 07/17/24 12:36 Source: patient and RN notes reviewed Mode of arrival: ambulatory Limitations: no limitations History of Present Illness HPI narrative: Anna is a very pleasant 69-year-old female with history of acute parotitis which caused airway compromise subsequent intubation and transfer to [place] on June 21 who comes back to our emergency room with increasing swelling on the right side of her face. Patient had been started on her Rocephin and Flagyl subsequent to penicillin allergy on June 20. A repeat CT on June 21 showed increasing soft tissue edema of the right larynx and parapharyngeal areas causing airway compromise. Patient was intubated here and transfer to [place] at which time she was hospitalized for 5 days on IV antibiotics. She was discharged with 7 additional days of oral antibiotics. Three days after finishing the antibiotics she had increased swelling on the right side of her face and went to see her primary provider at [facility] in [place]. She was placed on an additional 7 days of medications. Her last day of antibiotics was July 13. In the past 48 hours she has had more swelling and discomfort on the right side of her face again. She is breathing without difficulty and she is swallowing without difficulty at this time. She has not had any fever or chills. Family knows that this was a staph infection but they are not sure if it was MRSA. Unsure which antibiotics she did take in the past few weeks orally. Anna's daughter presents with her mom. She states Anna had been scheduled for surgery for normal pressure hydrocephalus on July 06 but obviously this had to be delayed. It is now scheduled for July. Related Data Home Medications ?Medication ?Instructions ?Recorded ?Confirmed albuterol sulfate 90 mcg/actuation 2 puff inhalation Q4H PRN 10/10/23 07/17/24 aerosol inhaler amitriptyline 50 mg tablet 150 mg PO HS 10/10/23 07/17/24 aspirin 81 mg tablet,delayed 81 mg PO HS 10/10/23 07/17/24 release atorvastatin 80 mg tablet 80 mg PO DAILY 10/10/23 07/17/24 diclofenac sodium 1 % topical gel 4 g topical QID PRN 10/10/23 07/17/24 ezetimibe 10 mg tablet 10 mg PO DAILY 10/10/23 07/17/24 gabapentin 300 mg capsule 300 mg PO HS 10/10/23 07/17/24 multivitamin with minerals 1 cap PO DAILY 10/10/23 07/17/24 omeprazole 40 mg capsule,delayed 40 mg PO BID 10/10/23 07/17/24 release semaglutide 1 mg/dose (4 mg/3 mL) 1 mg subcut .weekly 10/10/23 07/17/24 subcutaneous pen injector tiotropium bromide 2.5 2 inh inhalation Q24H 10/10/23 07/17/24 mcg/actuation mist for inhalation (Spiriva Respimat) torsemide 20 mg tablet 80 mg PO DAILY 10/10/23 07/17/24 tramadol 50 mg tablet 50 mg PO HS PRN 10/10/23 07/17/24 venlafaxine 150 mg 150 mg PO DAILY 10/10/23 07/17/24 capsule,extended release 24 hr losartan 50 mg tablet 50 mg PO DAILY 10/11/23 07/17/24 Allergies Allergy/AdvReac Type Severity Reaction Status Date / Time adhesive tape Allergy Unknown Verified 07/17/24 14:50 Penicillins Allergy Unknown Verified 07/17/24 14:50 Review of Systems Status of ROS: Reports: 10 or more systems reviewed and unremarkable except as noted in History and below Const: Denies: fever or chills Eyes: Denies: change in vision ENMT: Reports: throat pain and neck pain; Denies: throat swelling, difficulty swallowing, hoarseness, swelling of lips/tongue or nasal congestion Cardio: Denies: chest pain or shortness of breath with exertion Resp: Denies: shortness of breath or cough GI: Denies: abdominal pain, nausea, vomiting or difficulty swallowing Musculo: Reports: neck pain Integ/Breast: Denies: rash Neuro: Denies: headache Allergy/Immuno: Denies: throat swelling PFSH [facility] Medical History Dizziness ?R42 - Dizziness and giddiness (ICD-10) Hyperlipidemia ?E78.5 - Hyperlipidemia, unspecified (ICD-10) Anxiety ?F41.9 - Anxiety disorder, unspecified (ICD-10) Gastroesophageal reflux ?K21.9 - Gastro-esophageal reflux disease without esophagitis (ICD-10) Obstructive sleep apnea ?G47.33 - Obstructive sleep apnea (adult) (pediatric) (ICD-10) Peripheral autonomic neuropathy due to diabetes mellitus ?E11.43 - Type 2 diabetes mellitus with diabetic autonomic (poly)neuropathy (ICD-10) Diabetes mellitus ?E11.9 - Type 2 diabetes mellitus without complications (ICD-10) Chronic back pain ?M54.9 - Dorsalgia, unspecified (ICD-10) ?G89.29 - Other chronic pain (ICD-10) Pulmonary nodule ?R91.1 - Solitary pulmonary nodule (ICD-10) Hypertension ?I10 - Essential (primary) hypertension (ICD-10) Comminuted right humeral fracture with nonunion ?S42.351K - Displaced comminuted fracture of shaft of humerus, right arm, subsequent encounter for fracture with nonunion (ICD-10) Chronic renal failure, stage 3b ?N18.32 - Chronic kidney disease, stage 3b (ICD-10) Obesity ?E66.9 - Obesity, unspecified (ICD-10) Heart failure with preserved ejection fraction ?I50.30 - Unspecified diastolic (congestive) heart failure (ICD-10) COPD (chronic obstructive pulmonary disease) ?J44.9 - Chronic obstructive pulmonary disease, unspecified (ICD-10) Surgical History Hx of shoulder surgery ?Z98.890 - Other specified postprocedural states (ICD-10) History of parathyroidectomy ?Z98.890 - Other specified postprocedural states (ICD-10) ?Z90.89 - Acquired absence of other organs (ICD-10) Family History Brother Diabetes Hx of CABG Sister Diabetes Father Lung cancer Prostate cancer Mother Lung cancer Heart disease Social History Narrative: Anna lives in [place] with her brother. She reports generally this has been going well. She has some disability because of her remote history of right shoulder injury, poorly healing humeral fracture. She walks without assistive device. She quit smoking about 21 years ago. She does not drink alcohol. Her daughter Lea is healthcare power of contracts attorney. Code status is full What is your current living situation?: I presently have a place to live Problems where you live: no known problems Problems where you live details: N/A In the past 12 months, utilities in danger of being shut off: no In past 12 months, lack of transportation kept you from medical appts, meetings, work, or getting things needed for daily living: no In the past 12 mos, have been you worried that your food would run out before you had money to buy more?: never true In the past 12 mos, the food you bought just didn't last and you didn't have money to buy more?: never true Highest level of school completed/degree received: high school graduate Smoking Status: Former smoker What tobacco products do you use: cigarettes Smoking quit date/years: >15 years ago Do you use any of these nicotine containing products: None How often do you have a drink containing alcohol: never How often do you have six or more drinks on one occasion: Never AUDIT-C Alcohol total score: 0 Non-prescribed substance use: denies use Caffeine: Yes How often does anyone, including family, friends and others, physically hurt you: never How often does anyone, including family, friends and others, insult or talk down to you: never How often does anyone, including family, friends and others, threaten you with harm: never How often does anyone, including family, friends and others, scream or curse at you: never service: No Exam Narrative: Exam Narrative: Anna is alert and oriented. She has discomfort with palpation over the right parotid gland with increased firmness and mild soft tissue edema. I do not note any erythema. She also has discomfort with palpation over the right superior anterior full cervical chain. I do not palpate any lymphadenopathy. Heart is with regular rate and rhythm. Oral cavity shows tacky mucous membranes. She has no trismus. I do not visualize any significant edema in the posterior oropharynx but she has a large tongue and is difficult to visualize this area. Heart with regular rate and rhythm and lungs are clear bilaterally. abdomen soft. Moving all extremities. Const: Vital Signs, click to edit/add: Vital Signs - 24 hr 07/17/24 12:09 07/17/24 12:15 07/17/24 14:43 Temperature 98.3 F Pulse Rate 86 Pulse Rate [Right Pulse Oximeter] 84 Respiratory Rate 18 Blood Pressure [Ri ght Upper Arm] 130/75 Pulse Oximetry 99 99 Oxygen Delivery Me thod Room Air 07/17/24 14:45 07/17/24 15:00 Temperature Pulse Rate 89 96 Pulse Rate [Right Pulse Oximeter] Respiratory Rate Blood Pressure [Ri ght Upper Arm] Pulse Oximetry 98 98 Oxygen Delivery Me thod Documenting provider has reviewed patient's vital signs: yes Course Course ED Course: Differential diagnosis does include recurrent parotitis, airway compromise or edema. Will obtain CT soft tissue neck to include lower jaw with IV contrast. Will place an IV in collect labs to include CBC, comprehensive, CRP. Blood cultures have also been accomplished. Review of previous record shows negative blood cultures on June 20. Consultations Consultation #1: I had the pleasure of speaking with ID at the [facility] [place]. I was unable to find documentation of a staph infection as provided by the patient's daughter. According to ID this was staff from a buccal swab on June 21 and it was not MRSA. There was a sputum culture that showed few Aspergillus but negative for any bacteria. We spoke about appropriate antibiotics and cefotaxime was suggested along with Flagyl. Also spoke about extending antibiotic administration of to 10-14 days instead of the 7 which we have been doing and suggested a repeat CT near the end of the regimen to ensure no fluid collection. Consultation #2: I spoke with Dr. Ohara, ENT who does agree with admitting patient for 24 hours of antibiotics. Would also request aqua K heat to be applied. Vital Signs Vital signs: Initial Vital Signs Temperature Source Temporal Artery Scan 07/17/24 12:09 Pulse Rate 84 07/17/24 12:09 Pulse Rhythm Regular 07/17/24 12:09 Respiratory Rate 18 07/17/24 12:09 Blood Pressure 130/75 07/17/24 12:09 Blood Pressure Mean 93 07/17/24 12:09 Blood Pressure Position Sitting 07/17/24 12:09 Pulse Oximetry 99 07/17/24 12:09 Oxygen Delivery Method Room Air 07/17/24 12:09 Vital Signs Pulse Rate 84 07/17/24 12:09 Respiratory Rate 18 07/17/24 12:09 Blood Pressure 130/75 07/17/24 12:09 Pulse Oximetry 99 07/17/24 12:09 Oxygen Delivery Method Room Air 07/17/24 12:09 Temperature 98.3 F 07/17/24 12:15 Pulse Rate 96 07/17/24 15:00 Respiratory Rate 18 07/17/24 12:09 Blood Pressure 130/75 07/17/24 12:09 Pulse Oximetry 98 07/17/24 15:00 Oxygen Delivery Method Room Air 07/17/24 12:09 Medications Administered Medications: Discontinued Medications Generic Name Dose Route Start Last Admin Trade Name Freelisa PRN Reason Stop Dose Admin Ceftriaxone Sodium 2 gm/ 100 mls @ 200 mls/hr 07/17/24 13:35 07/17/24 14:11 Sodium Chloride IVPB 07/17/24 13:36 200 mls/hr ONCE ONE Administration Medical Decision Making MDM Narrative Medical decision making narrative: 1. Recurrent parotitis-fortunately white count, CRP as well as CT all reassuring. We do not have cefotaxime here at the hospital and thus use Rocephin 2 g IV as well as Flagyl 500 mg IV. Patient will be admitted for continuing antibiotics for 24 hours. No reports of MRSA. Blood cultures negative at 1st visit blood cultures were done today. 2. History of airway compromise-no evidence of compromised airway on exam and CT is reassuring with no soft tissue edema. If patient has worsening symptoms would recommend transfer to [facility]. 3. History of normal pressure hydrocephalus-initial procedure for treatment scheduled for July 06 was delayed and ill July. 4. Disposition-admit to the hospital under the care of , hospitalist peer Medical Records Medical records reviewed: Yes I reviewed the patient's medical records Lab Data Lab results reviewed: Yes I reviewed the patient's lab results Labs: Lab Results 07/17/24 Range/Units 13:28 WBC 8.17 (4.50-11.00) K/uL RBC 3.93 L (4.00-5.20) m/uL Hgb 11.8 L (12.0-16.0) gm/dL Hct 36.3 (33.0-51.0) % MCV 92 (80-100) fL MCH 30 (26-34) pg MCHC 33 (32-36) gm/dL RDW Coeff of Isiah 13.3 (11.5-15.5) % Plt Count 308 (140-440) K/uL Neut % (Auto) 51.6 (42.0-72.0) % Lymph % (Auto) 34.0 (20-44) % Treasure % (Auto) 8.9 (0.0-11.0) % Eos % (Auto) 4.9 (0.0-7.0) % Baso % (Auto) 0.5 (0.0-3.0) % Neut # (Auto) 4.21 (1.7-7.0) K/uL Lymph # (Auto) 2.78 (0.90-2.90) K/uL Treasure # (Auto) 0.70 (0.00-0.90) K/UL Eos # (Auto) 0.40 (0.00-0.50) K/uL Baso # (Auto) 0.04 (0.00-0.30) K/uL Abs Immat Gran (auto) 0.01 (0.00-0.30) K/uL Imm/Tot Granulo (auto) 0.1 % Sodium 138 (135-149) mmol/L Potassium 4.3 (3.6-5.1) mmol/L Chloride 99 (96-114) mmol/L Carbon Dioxide 30 (20-32) mmol/L Anion Gap 9 (7-15) mEq/L BUN 22 (7-30) mg/dL Creatinine 1.5 (0.5-1.5) mg/dL Estimated Creat Clear 32.20 Estimated GFR 37 ml/min Glucose 96 (60-115) mg/dL Calcium 9.1 (8.4-10.6) mg/dL Total Bilirubin 0.5 (0.1-1.5) mg/dL AST 50 H (12-35) U/L ALT 50 H (4-35) U/L Alkaline Phosphatase 73 (40-150) U/L C-Reactive Protein < 0.5 L (0.5-1.0) mg/dL Total Protein 7.2 (6.0-8.3) g/dL Albumin 4.6 (3.3-5.0) g/dL Imaging Data Soft tissue neck CT: Attestation: I have reviewed the pertinent imaging results. Radiologist's impression: Skull base: Unremarkable. Pharynx/Larynx/Trachea: Epiglottis is normal. Airway is patent. Adjacent soft tissues are normal. Salivary glands: Unremarkable. Previously noted enlargement and soft tissue swelling of the right parotid gland has resolved. Thyroid gland: Subcentimeter hypodense nodules in the thyroid, which do not meet criteria for follow-up. Lymph nodes: No lymphadenopathy. Vessels: Moderate atherosclerosis of the carotid bulbs. Bones: Moderate degenerative disease of the cervical spine. Misc: Unremarkable. Lung apices: Unremarkable. IMPRESSION: Previously noted right parotitis is resolved. Airway is patent. Discharge Plan Discharge Prescriptions: No Action albuterol sulfate 90 mcg/actuation HFA aerosol inhaler 2 puff INHALATION Q4H PRN Rx Instructions: Inhale 2 puffs every 4 (four) hours as needed for shortness of breath. amitriptyline 50 mg tablet 150 mg PO HS Rx Instructions: TAKE 3 TABLETS(150 MG) BY MOUTH AT BEDTIME aspirin 81 mg tablet,delayed release (DR/EC) 81 mg PO HS Rx Instructions: Take 81 mg by mouth at bedtime. atorvastatin 80 mg tablet 80 mg PO DAILY Rx Instructions: Take 1 tablet (80 mg total) by mouth daily. diclofenac sodium 1 % gel 4 g TOPICAL QID PRN Rx Instructions: Apply 4 g topically 4 (four) times a day as needed (Pain). Apply to right shoulder. ezetimibe 10 mg tablet 10 mg PO DAILY Rx Instructions: TAKE 1 TABLET(10 MG) BY MOUTH DAILY gabapentin 300 mg capsule 300 mg PO HS Rx Instructions: Take 1 capsule (300 mg total) by mouth at bedtime. multivitamin with minerals Capsule 1 cap PO DAILY Spiriva Respimat 2.5 mcg/actuation mist 2 inh INHALATION Q24H Rx Instructions: Inhale 2 puffs daily. torsemide 20 mg tablet 80 mg PO DAILY Rx Instructions: TAKE 4 TABLETS(80 MG) BY MOUTH DAILY tramadol 50 mg tablet 50 mg PO HS PRN Rx Instructions: Take 1 tablet (50 mg total) by mouth at bedtime as needed for pain Indications: Chronic Pain/Nonacute Pain. venlafaxine 150 mg capsule,extended release 24hr 150 mg PO DAILY Rx Instructions: TAKE 1 CAPSULE(150 MG) BY MOUTH DAILY semaglutide 1 mg/dose (4 mg/3 mL) pen injector 1 mg SUBCUT .weekly Rx Instructions: Inject 1 mg under the skin every 7 (seven) days. TAKES ON WEDNESDAY MORNINGS omeprazole 40 mg capsule,delayed release(DR/EC) 40 mg PO BID Rx Instructions: Take 1 capsule (40 mg total) by mouth 2 (two) times a day before breakfast and dinner. losartan 50 mg tablet 50 mg PO DAILY Follow Up/Referrals: Laly Dickey PA-C [Primary Care Provider] -
--- NOTE | 2024-07-17 13:27 | CRLHL7_ITS ---
For Patients: As a result of the Century Cures Act, medical imaging exams and procedure reports are released immediately into your electronic medical record. You may view this report before your referring provider. If you have questions, please contact your health care provider. INDICATION: Right parotitis TECHNIQUE: CT soft tissue of the neck was acquired with 139 cc of Isovue 370 IV contrast. COMPARISON: CT neck 06/21/2024. FINDINGS: Skull base: Unremarkable. Pharynx/Larynx/Trachea: Epiglottis is normal. Airway is patent. Adjacent soft tissues are normal. Salivary glands: Unremarkable. Previously noted enlargement and soft tissue swelling of the right parotid gland has resolved. Thyroid gland: Subcentimeter hypodense nodules in the thyroid, which do not meet criteria for follow-up. Lymph nodes: No lymphadenopathy. Vessels: Moderate atherosclerosis of the carotid bulbs. Bones: Moderate degenerative disease of the cervical spine. Misc: Unremarkable. Lung apices: Unremarkable. IMPRESSION: Previously noted right parotitis is resolved. Airway is patent. Please note that all CT scans at this facility use dose modulation, iterative reconstruction, and/or weight-based dosing when appropriate to reduce radiation dose to as low as reasonably achievable. Dictated by Michelle Talbot MD @ 07/17/2024 3:11:20 PM (Electronically Signed)
[2024-07-17 13:39] LABS: Basophils Absolute Auto 0.04 K/uL (0.00-0.30); Basophils Percent Auto 0.5 % (0.0-3.0); Eosinophils Percent Auto 4.9 % (0.0-7.0); Hematocrit 36.3 % (33.0-51.0); Hemoglobin* 11.8 gm/dL (12.0-16.0); Immature Granulocytes Abs Auto 0.01 K/uL (0.00-0.30); Immature Granulocytes Pct Auto 0.1 %; Lymphocytes Absolute Auto 2.78 K/uL (0.90-2.90); Mean Corpuscular HGB Conc 33 gm/dL (32-36); Mean Corpuscular Hemoglobin 30 pg (26-34); Mean Corpuscular Volume 92 fL (80-100); Monocytes Percent Auto 8.9 % (0.0-11.0); Neutrophils Absolute Auto 4.21 K/uL (1.7-7.0); Neutrophils Percent Auto 51.6 % (42.0-72.0); Platelet Count* 308 K/uL (140-440); RDW Coefficient of Variation % 13.3 % (11.5-15.5); Red Blood Count 3.93 m/uL (4.00-5.20); White Blood Count* 8.17 K/uL (4.50-11.00)
[2024-07-17 13:42] LABS: Slide Review Reflex No
[2024-07-17 13:57] LABS: Albumin* 4.6 g/dL (3.3-5.0); Chloride* 99 mmol/L (96-114); Sodium* 138 mmol/L (135-149)
[2024-07-17 13:58] LABS: Potassium* 4.3 mmol/L (3.6-5.1)
[2024-07-17 14:00] LABS: Alkaline Phosphatase* 73 U/L (40-150); Anion Gap 9 mEq/L (7-15); Aspartate Amino Transferase* 50 U/L (12-35); Bilirubin Total* 0.5 mg/dL (0.1-1.5); Carbon Dioxide* 30 mmol/L (20-32); Creatinine* 1.5 mg/dL (0.5-1.5); Estimated Glomerular Filt Rate 37 ml/min; Total Protein* 7.2 g/dL (6.0-8.3)
[2024-07-17 14:01] LABS: Alanine Aminotransferase* 50 U/L (4-35); Blood Urea Nitrogen* 22 mg/dL (7-30); Calcium* 9.1 mg/dL (8.4-10.6); Glucose* 96 mg/dL (60-115)
[2024-07-17 14:10] LABS: C Reactive Protein* < 0.5 mg/dL (0.5-1.0)
[2024-07-17] MEDS: cefTRIAXone 2 GM in 0.9 % SODIUM CHLORIDE Mini-bag 100 ML IVPB (14:11)
[2024-07-17] MEDS: metroNIDAZOLE 500 MG/100 ML PIGGYBACK 100 MG IVPB (15:59)
--- NOTE | 2024-07-17 17:48 | P.IMHP_ITS ---
Hospitalist- H&P: HPI History of Present Illness Date Seen: 07/17/24 Chief complaint: recurrent parotitis Narrative: Anna Ortega is a 69 year old woman with recurrent right parotitis since 06/19/2024. First assess for the same on 06/20/2024. Because of penicillin allergy, was started on ceftriaxone and metronidazole. On 06/21/2024, patient presents to the [facility] emergency department with impending airway obstruction, CT scan demonstrating soft tissue edema of the right larynx and parapharyngeal areas causing airway compromise. Was intubated and transferred to [facility]. Received 5 days of IV antibiotics. Discharged with 7 additional days of oral antibiotics, levofloxacin and metronidazole. Three days after completing this regimen, had recurrent swelling in the right side of her face. Assessed at [place], [place], [place] she was started on another 7 days of levofloxacin and metronidazole. She completed this regimen 4 days ago. Today she noted recurrence of swelling and tenderness on the right side of her face over the parotid gland. That she presents to the emergency department for further assessment at this time. Denies fevers, rigors, diaphoresis. Able to eat and drink. Able to speak. No difficulties with dyspnea at rest or dyspnea with exertion. Denies cough. Denies syncope or near-syncope. Denies nausea or vomiting. Denies dysphagia or odynophagia. She does tell me that during the course of her hospital stay at [place], [place] a throat culture grew out MSSA. Our physician in the emergency department spoke with Infectious Disease at [facility] today. They recommended overnight IV ceftriaxone and metronidazole. If patient remains stable then she may be switched to oral levofloxacin and metronidazole I believe for 14 days. Our Ear Nose Throat specialist, Dr. Ohara, is aware of the patient in the hospital. Review of Systems Status of ROS: Reports: 6 or more systems reviewed and unremarkable except as noted in History and below [facility] Medical History Normal pressure hydrocephalus ?G91.2 - (Idiopathic) normal pressure hydrocephalus (ICD-10) Infective sialoadenitis ?K11.20 - Sialoadenitis, unspecified (ICD-10) Dizziness ?R42 - Dizziness and giddiness (ICD-10) Hyperlipidemia ?E78.5 - Hyperlipidemia, unspecified (ICD-10) Anxiety ?F41.9 - Anxiety disorder, unspecified (ICD-10) Gastroesophageal reflux ?K21.9 - Gastro-esophageal reflux disease without esophagitis (ICD-10) Obstructive sleep apnea ?G47.33 - Obstructive sleep apnea (adult) (pediatric) (ICD-10) Peripheral autonomic neuropathy due to diabetes mellitus ?E11.43 - Type 2 diabetes mellitus with diabetic autonomic (poly)neuropathy (ICD-10) Diabetes mellitus ?E11.9 - Type 2 diabetes mellitus without complications (ICD-10) Chronic back pain ?M54.9 - Dorsalgia, unspecified (ICD-10) ?G89.29 - Other chronic pain (ICD-10) Pulmonary nodule ?R91.1 - Solitary pulmonary nodule (ICD-10) Hypertension ?I10 - Essential (primary) hypertension (ICD-10) Comminuted right humeral fracture with nonunion ?S42.351K - Displaced comminuted fracture of shaft of humerus, right arm, subsequent encounter for fracture with nonunion (ICD-10) Chronic renal failure, stage 3b ?N18.32 - Chronic kidney disease, stage 3b (ICD-10) Obesity ?E66.9 - Obesity, unspecified (ICD-10) Heart failure with preserved ejection fraction ?I50.30 - Unspecified diastolic (congestive) heart failure (ICD-10) COPD (chronic obstructive pulmonary disease) ?J44.9 - Chronic obstructive pulmonary disease, unspecified (ICD-10) Surgical History Hx of shoulder surgery ?Z98.890 - Other specified postprocedural states (ICD-10) History of parathyroidectomy ?Z98.890 - Other specified postprocedural states (ICD-10) ?Z90.89 - Acquired absence of other organs (ICD-10) Family History Brother Diabetes Hx of CABG Sister Diabetes Father Lung cancer Prostate cancer Mother Lung cancer Heart disease Social History Narrative: Anna lives in [place] with her brother. She reports generally this has been going well. She has some disability because of her remote history of right shoulder injury, poorly healing humeral fracture. She walks without assistive device. She quit smoking about 21 years ago. She does not drink alcohol. Her daughter Lea is healthcare power of document review attorney. Code status is full What is your current living situation?: I presently have a place to live Problems where you live: no known problems Problems where you live details: N/A In the past 12 months, utilities in danger of being shut off: no In past 12 months, lack of transportation kept you from medical appts, meetings, work, or getting things needed for daily living: no In the past 12 mos, have been you worried that your food would run out before you had money to buy more?: never true In the past 12 mos, the food you bought just didn't last and you didn't have money to buy more?: never true Highest level of school completed/degree received: 12th grade, no diploma Smoking Status: Former smoker What tobacco products do you use: cigarettes Smoking quit date/years: >15 years ago Do you use any of these nicotine containing products: None How often do you have a drink containing alcohol: never How often do you have six or more drinks on one occasion: Never AUDIT-C Alcohol total score: 0 Non-prescribed substance use: denies use Caffeine: Yes How often does anyone, including family, friends and others, physically hurt you : never How often does anyone, including family, friends and others, insult or talk down to you: never How often does anyone, including family, friends and others, threaten you with harm: never How often does anyone, including family, friends and others, scream or curse at you: never service: No Meds Home Medications and Allergies Home Medications ?Medication ?Instructions ?Recorded ?Confirmed ?Type albuterol sulfate 90 mcg/actuation 2 puff inhalation Q4H PRN 10/10/23 07/17/24 History aerosol inhaler amitriptyline 50 mg tablet 150 mg PO HS 10/10/23 07/17/24 History aspirin 81 mg tablet,delayed 81 mg PO HS 10/10/23 07/17/24 History release atorvastatin 80 mg tablet 80 mg PO DAILY 10/10/23 07/17/24 History diclofenac sodium 1 % topical gel 4 g topical QID PRN 10/10/23 07/17/24 History ezetimibe 10 mg tablet 10 mg PO DAILY 10/10/23 07/17/24 History gabapentin 300 mg capsule 300 mg PO HS 10/10/23 07/17/24 History multivitamin with minerals 1 cap PO DAILY 10/10/23 07/17/24 History omeprazole 40 mg capsule,delayed 40 mg PO BID 10/10/23 07/17/24 History release semaglutide 1 mg/dose (4 mg/3 mL) 1 mg subcut .weekly 10/10/23 07/17/24 History subcutaneous pen injector tiotropium bromide 2.5 2 inh inhalation Q24H 10/10/23 07/17/24 History mcg/actuation mist for inhalation (Spiriva Respimat) torsemide 20 mg tablet 80 mg PO DAILY 10/10/23 07/17/24 History tramadol 50 mg tablet 50 mg PO HS PRN 10/10/23 07/17/24 History venlafaxine 150 mg 150 mg PO DAILY 10/10/23 07/17/24 History capsule,extended release 24 hr losartan 50 mg tablet 50 mg PO DAILY 10/11/23 07/17/24 History Allergies Allergy/AdvReac Type Severity Reaction Status Date / Time adhesive tape Allergy Unknown Verified 07/17/24 14:50 Penicillins Allergy Unknown Verified 07/17/24 14:50 Exam Narrative: Exam Narrative: I examined patient in hospital emergency department. She appears comfortable and in no acute distress. She sitting upright. Eating and drinking without any difficulties. External auditory canals are clear tympanic membranes are normal. Does have hearing aids bilaterally. Midline nasal septum. Dentition in fair repair. Dry buccal mucosa. Mallampati class 3 airway. Does have a large tongue. Conjugate gaze. No icterus. Mild to moderate swelling of the right parotid. Tender to touch. Left side unremarkable. Midline trachea. No head neck lymphadenopathy. Obese body habitus. Lungs are clear to auscultation. No wheezing, rhonchi, rales. Chest wall excursions are full. Heart tones distant but with regular rhythm, normal S1-S2. No murmur, gallop, rub. PMI not laterally displaced. Abdomen obese with active bowel sounds, soft, nontender. No rebound or guarding. Moves all 4 extremities. Independent in transfer, station, gait. Const: Vital Signs, click to edit/add: Vital Signs - 24 hr 07/17/24 12:09 07/17/24 12:15 07/17/24 14:43 Temperature 98.3 F Pulse Rate 86 Pulse Rate [Left P ulse Oximeter] Pulse Rate [Right Pulse Oximeter] 84 Respiratory Rate 18 Blood Pressure Blood Pressure [Le ft Arm] Blood Pressure [Ri ght Upper Arm] 130/75 Pulse Oximetry 99 99 Oxygen Delivery Me thod Room Air 07/17/24 14:45 07/17/24 15:00 07/17/24 16:13 Temperature Pulse Rate 89 96 95 Pulse Rate [Left P ulse Oximeter] Pulse Rate [Right Pulse Oximeter] Respiratory Rate Blood Pressure 108/50 L Blood Pressure [Le ft Arm] Blood Pressure [Ri ght Upper Arm] Pulse Oximetry 98 98 96 Oxygen Delivery Me thod 07/17/24 16:14 07/17/24 17:25 Temperature 97.6 F Pulse Rate 93 Pulse Rate [Left P ulse Oximeter] 96 Pulse Rate [Right Pulse Oximeter] Respiratory Rate 18 Blood Pressure Blood Pressure [Le ft Arm] 125/58 L Blood Pressure [Ri ght Upper Arm] Pulse Oximetry 97 96 Oxygen Delivery Wa thod Room Air Hospitalist - H&P: Result Labs Labs: Short CBC 07/17/24 Range/Units 13:28 WBC 8.17 (4.50-11.00) K/uL Hgb 11.8 L (12.0-16.0) gm/dL Hct 36.3 (33.0-51.0) % Plt Count 308 (140-440) K/uL BMP 07/17/24 13:28 Sodium 138 Potassium 4.3 Chloride 99 Carbon Dioxide 30 BUN 22 Creatinine 1.5 Glucose 96 Calcium 9.1 Liver Function 07/17/24 Range/Units 13:28 Total Bilirubin 0.5 (0.1-1.5) mg/dL AST 50 H (12-35) U/L ALT 50 H (4-35) U/L Alkaline Phosphatase 73 (40-150) U/L Albumin 4.6 (3.3-5.0) g/dL Imaging CT scan - soft tissue of neck: Attestation: I have reviewed the pertinent imaging results. Radiologist's impression: FINDINGS: Skull base: Unremarkable. Pharynx/Larynx/Trachea: Epiglottis is normal. Airway is patent. Adjacent soft tissues are normal. Salivary glands: Unremarkable. Previously noted enlargement and soft tissue swelling of the right parotid gland has resolved. Thyroid gland: Subcentimeter hypodense nodules in the thyroid, which do not meet criteria for follow-up. Lymph nodes: No lymphadenopathy. Vessels: Moderate atherosclerosis of the carotid bulbs. Bones: Moderate degenerative disease of the cervical spine. Misc: Unremarkable. Lung apices: Unremarkable. IMPRESSION: Previously noted right parotitis is resolved. Airway is patent. Assessment and Plan Assessment and plan (1) Acute parotitis: Problem comment: -recurrent since 06/19/2024 -initially treated with 5 days of IV antibiotics at [place], [place]. -then completed to different 7 day courses of oral levofloxacin and metronidazole, most recently completed about 4 days ago. -07/17/2024: Initiate ceftriaxone 2 g IV Q 24 hours and metronidazole 500 mg IV q.8 hours and monitor overnight in hospital. If does well consider switching back to levofloxacin and metronidazole orally for 14 days with follow-up. Status: Acute (2) Normal pressure hydrocephalus: Status: Acute (3) Infective sialoadenitis: Status: Acute (4) Chronic renal insufficiency: Problem comment: ARF on CKD stage 3b. Creatinine is above baseline at 1.9. Possibly due to poor oral intake recently. Monitor Status: Acute (5) Diabetes mellitus: Problem comment: Continue to monitor. Status: Chronic (6) Obstructive sleep apnea: Problem comment: Stopped using CPAP years ago. Recommend re-evaluation with sleep specialist. Monitor for complications related to opioid use for pain Status: Chronic (7) Obesity: Problem comment: Has had some weight loss on Ozempic Status: Chronic (8) Heart failure with preserved ejection fraction: Problem comment: Chronic, stable. Currently appears well compensated. Status: Chronic (9) COPD (chronic obstructive pulmonary disease): Problem comment: Currently appears to be well compensated. Status: Acute Plan 1. Reviewed impression and plans and recommendations with patient 2. Answered her questions 3. Continue with supportive efforts. Enoxaparin for venous thromboembolism prophylaxis. 4. Throat culture. Nasal MRSA swab. 5. Patient agreeable to above stated plans and recommendations Total Time Spent Total Time Spent: 60 minutes
[2024-07-17] MEDS: ACETAMINOPHEN 325 MG TABLET 650 MG PO (19:40)
[2024-07-17] MEDS: ASPIRIN 81 MG TABLET EC PO (21:29)
[2024-07-17] MEDS: OMEPRAZOLE 20 MG CAPSULE DR 40 MG PO (21:29)
[2024-07-17] MEDS: SODIUM CHLORIDE 0.9 % (FLUSH) 10 ML SYRINGE 5 ML IVF (21:29)
[2024-07-17] MEDS: GABAPENTIN 300 MG CAPSULE PO (21:29)
[2024-07-17] MEDS: ENOXAPARIN 30 MG/0.3ML INJ SUBCUT (21:29)
[2024-07-17] MEDS: TRAMADOL HCL 50 MG TABLET PO (21:47)
[2024-07-17] MEDS: AMITRIPTYLINE 25 MG TABLET 150 MG PO (21:47)
[2024-07-17] MEDS: DOCUSATE SODIUM 100 MG CAPSULE PO (22:48)
--- NOTE | 2024-07-17 23:37 | PC.NURSE ---
End of Shift: Patient admitted to CCU3. Pleasant and cooperative. Afebrile. Denies any difficulty swallowing or shortness of breath. Tolerating regular diet. Rating pain in right cheek/jaw 12/07, updated MD and PRN Tylenol given and aqua k pad applied. Up with SBA.
[2024-07-18] VITALS (7 sets, daily range): BP systolic 104–138; BP diastolic 50–75; PULSE 85–90; RESP 16–18; TEMP 36.4–37.1; O2SAT 93–96
[2024-07-18] MEDS: IPRATROPIUM 200 MCG/ML AMPUL.NEB 500 MCG IH ×5 (00:30→23:54)
[2024-07-18] MEDS: metroNIDAZOLE 500 MG/100 ML PIGGYBACK 100 MG IVPB ×4 (00:30→23:55)
[2024-07-18] MEDS: OMEPRAZOLE 20 MG CAPSULE DR 40 MG PO ×2 (06:22→17:32)
[2024-07-18 06:48] LABS: Hematocrit 37.1 % (33.0-51.0); Mean Corpuscular HGB Conc 32 gm/dL (32-36); Mean Corpuscular Hemoglobin 30 pg (26-34); Mean Corpuscular Volume 92 fL (80-100); Platelet Count* 304 K/uL (140-440); Red Blood Count 4.02 m/uL (4.00-5.20); White Blood Count* 7.96 K/uL (4.50-11.00)
[2024-07-18 06:49] LABS: Slide Review Reflex No
[2024-07-18 07:05] LABS: HCO3 VBG 32 mmol/L (21-28); Lactate* 1.9 mmol/L (0.5-1.9); PCO2 VBG 55 mmHG (40-50); PO2 VBG < 30.1 mmHG (25-47); pH VBG 7.375 (7.32-7.43)
[2024-07-18 07:31] LABS: Chloride* 99 mmol/L (96-114); Potassium* 4.7 mmol/L (3.6-5.1); Sodium* 137 mmol/L (135-149)
[2024-07-18 07:34] LABS: Creatinine* 1.5 mg/dL (0.5-1.5); Estimated Glomerular Filt Rate 37 ml/min
[2024-07-18 07:35] LABS: Anion Gap 9 mEq/L (7-15); Blood Urea Nitrogen* 24 mg/dL (7-30); Calcium* 8.9 mg/dL (8.4-10.6); Carbon Dioxide* 29 mmol/L (20-32); Glucose* 149 mg/dL (60-115)
[2024-07-18 07:50] LABS: C Reactive Protein* < 0.5 mg/dL (0.5-1.0)
[2024-07-18] MEDS: EZETIMIBE 10 MG TABLET PO (07:55)
[2024-07-18] MEDS: TORSEMIDE 20 MG TABLET 80 MG PO (07:55)
[2024-07-18] MEDS: ATORVASTATIN CALCIUM 40 MG TABLET 80 MG PO (07:55)
[2024-07-18] MEDS: LOSARTAN POTASSIUM 50 MG TABLET PO (07:56)
[2024-07-18] MEDS: SODIUM CHLORIDE 0.9 % (FLUSH) 10 ML SYRINGE 5 ML IVF ×2 (07:57→22:21)
[2024-07-18] MEDS: VENLAFAXINE ER 75 MG CAPSULE 150 MG PO (07:58)
[2024-07-18] MEDS: ACETAMINOPHEN 325 MG TABLET 650 MG PO ×2 (09:30→22:19)
--- NOTE | 2024-07-18 11:08 | PC.NURSE ---
Pt alert, oriented and vitally stable. Upon palpitation right cheek is swollen and tender to touch. Pt states pain rated 7/10, prn tylenol given and aqua k provided. Pt up independently, tolerates well. O2 sats remaining above 90 throughout the night.
[2024-07-18] MEDS: TRAMADOL HCL 50 MG TABLET PO ×2 (12:07→22:20)
[2024-07-18] MEDS: cefTRIAXone 2 GM in 0.9 % SODIUM CHLORIDE Mini-bag 100 ML IVPB (12:08)
--- NOTE | 2024-07-18 14:54 | P.IMPN_ITS ---
Progress Note: A&P Assessment and plan (1) Acute parotitis: Problem details: -recurrent since 06/19/2024 -initially treated with 5 days of IV antibiotics at [facility] [place], [place], [place]. -then completed to different 7 day courses of oral levofloxacin and metronidazole, most recently completed about 4 days ago. -07/17/2024: Initiate ceftriaxone 2 g IV Q 24 hours and metronidazole 500 mg IV q.8 hours and monitor overnight in hospital. If does well consider switching back to levofloxacin and metronidazole orally for 14 days with follow-up. - 07/18 afebrile, WBC wnl, face significantly edematous, but no symptoms that cross midline. Reviewed CT face from yesterday, no evidence of encroachment on airway. No new symptoms today to suggest that either. Continue IV antibiotics yet today. BP is soft, so will give gentle IVF bolus. Encourage po fluid intake. Status: Acute (2) Infective sialoadenitis: Problem details: as above Status: Acute (3) Normal pressure hydrocephalus: Status: Chronic (4) Chronic renal insufficiency: Problem details: CKD stage 3b. Creatinine is at baseline, 1.5. Status: Acute (5) Diabetes mellitus: Problem details: Diet controlled. ISS at [facility] while in hospital. Status: Chronic (6) Obstructive sleep apnea: Problem details: Stopped using CPAP years ago. Recommend re-evaluation with sleep specialist. Monitor for complications related to opioid use for pain Status: Chronic (7) Obesity: Problem details: Has had some weight loss on Ozempic Status: Chronic (8) Heart failure with preserved ejection fraction: Problem details: Chronic, stable. Currently appears well compensated. Status: Chronic (9) COPD (chronic obstructive pulmonary disease): Problem details: Currently appears to be well compensated. Status: Chronic Subjective Time Seen by Provider: 11:56 Date Seen: 07/18/24 Interval history: Anna notes maybe mild improvement. She remains fairly painful. She notes it is not as bad as she was last time (a few weeks ago when she had an impending airway). She denies SOB, CP, wheezing. Exam Narrative: Exam Narrative: General: No acute distress. Awake, alert, oriented x3. No pallor. No jaundice. Face: Significant right-sided swelling, no erythema, moderate tenderness over the right parotid gland and extending into the right face. No swelling, t enderness, or induration in the neck or chest, none of these symptoms cross midline. Oropharynx: Clear. Mucous membranes moist. Cardiovascular: Regular rate and rhythm. No murmurs, gallops, or rubs. Respiratory: No respiratory distress. Clear to auscultation bilaterally. No wheezes or crackles. Const: Vital Signs, click to edit/add: Vital Signs - 24 hr 07/17/24 15:00 07/17/24 16:13 07/17/24 16:14 Temperature Pulse Rate 96 95 93 Pulse Rate [Left P ulse Oximeter] Respiratory Rate Blood Pressure 108/50 L Blood Pressure [Le ft Arm] Pulse Oximetry 98 96 97 Oxygen Delivery Me thod 07/17/24 17:25 07/17/24 19:00 07/17/24 23:00 Temperature 97.6 F 98.4 F 98.8 F Pulse Rate Pulse Rate [Left P ulse Oximeter] 96 84 85 Respiratory Rate 18 18 16 Blood Pressure Blood Pressure [Le ft Arm] 125/58 L 121/62 126/85 Pulse Oximetry 96 94 [facility] Room [facility] Room Air 07/17/24 23:00 07/17/24 23:00 07/18/24 03:00 Temperature 97.6 F Pulse Rate Pulse Rate [Left P ulse Oximeter] 85 85 Respiratory Rate 16 16 16 Blood Pressure Blood Pressure [Le ft Arm] 132/75 Pulse Oximetry 95 94 [facility] 07/18/24 07:00 07/18/24 07:00 07/18/24 07:00 Temperature 97.6 F Pulse Rate Pulse Rate [Left P ulse Oximeter] 85 85 Respiratory Rate 18 18 18 Blood Pressure Blood Pressure [Le ft Arm] 111/63 Pulse Oximetry 95 95 [facility] Room Air 07/18/24 12:10 Temperature 98.8 F Pulse Rate Pulse Rate [Left P ulse Oximeter] 90 Respiratory Rate 16 Blood Pressure Blood Pressure [Le ft Arm] 105/50 L Pulse Oximetry 95 [facility] Labs Labs: Laboratory Results - last 24 hr 07/18/24 06:18 WBC 7.96 RBC 4.02 Hgb 12.0 Hct 37.1 MCV 92 MCH 30 MCHC 32 Plt Count 304 VBG pH 7.375 VBG pCO2 55 H VBG pO2 < 30.1 VBG HCO3 32 H Sodium 137 Potassium 4.7 Chloride 99 Carbon Dioxide 29 Anion Gap 9 BUN 24 Creatinine 1.5 Estimated Creat Clear 32.20 Estimated GFR 37 Glucose 149 H Lactate 1.9 Calcium 8.9 C-Reactive Protein < 0.5 L
--- NOTE | 2024-07-18 15:03 | PC.NURSE ---
End of shift note [id number]: Patient has had pain in her face from infection. Tramadol was given for this and patient stated it took the edge off. Patient also has heating pad that is helpful. PIV patent and intact. Voiding without difficulty. Vital signs within normal limits. Tolerating a regular diet. Continues to get IV antibiotics.
[2024-07-18] MEDS: 0.9 % SODIUM CHLORIDE 500 ML 500 ML IV (17:31)
[2024-07-18] MEDS: AMITRIPTYLINE 25 MG TABLET 150 MG PO (20:58)
[2024-07-18] MEDS: GABAPENTIN 300 MG CAPSULE PO (20:58)
[2024-07-18] MEDS: ENOXAPARIN 30 MG/0.3ML INJ SUBCUT (20:58)
[2024-07-18] MEDS: ASPIRIN 81 MG TABLET EC PO (20:58)
[2024-07-19] MEDS: IPRATROPIUM 200 MCG/ML AMPUL.NEB 500 MCG IH (06:14)
[2024-07-19] MEDS: OMEPRAZOLE 20 MG CAPSULE DR 40 MG PO (06:15)
[2024-07-19 06:16] VITALS: BP 147/83; PULSE 86; RESP 16; TEMP 36.8; O2SAT 94
[2024-07-19 06:44] LABS: Basophils Absolute Auto 0.04 K/uL (0.00-0.30); Basophils Percent Auto 0.5 % (0.0-3.0); Eosinophils Absolute Auto 0.47 K/uL (0.00-0.50); Eosinophils Percent Auto 6.2 % (0.0-7.0); Hematocrit 33.5 % (33.0-51.0); Immature Granulocytes Abs Auto 0.01 K/uL (0.00-0.30); Immature Granulocytes Pct Auto 0.1 %; Lymphocytes Absolute Auto 2.64 K/uL (0.90-2.90); Lymphocytes Percent Auto 34.9 % (20-44); Mean Corpuscular HGB Conc 33 gm/dL (32-36); Mean Corpuscular Hemoglobin 30 pg (26-34); Mean Corpuscular Volume 92 fL (80-100); Monocytes Percent Auto 9.1 % (0.0-11.0); Neutrophils Absolute Auto 3.72 K/uL (1.7-7.0); Neutrophils Percent Auto 49.2 % (42.0-72.0); Platelet Count* 235 K/uL (140-440); RDW Coefficient of Variation % 13.2 % (11.5-15.5); Red Blood Count 3.64 m/uL (4.00-5.20); White Blood Count* 7.57 K/uL (4.50-11.00)
--- NOTE | 2024-07-19 06:50 | PC.NURSE ---
Pt alert and oriented x3. Afebrile. Pt reports 7/10 pain in right side of jaw, pain managed with PRN medication. Pt is voiding, tolerating a regular diet, and up SBA.?? ?
[2024-07-19 06:55] LABS: Slide Review Reflex No
[2024-07-19 07:04] LABS: Chloride* 102 mmol/L (96-114); Potassium* 4.1 mmol/L (3.6-5.1); Sodium* 138 mmol/L (135-149)
[2024-07-19 07:07] LABS: Creatinine* 1.3 mg/dL (0.5-1.5); Est. Creatinine Clearance* 37.16; Estimated Glomerular Filt Rate 44 ml/min
[2024-07-19 07:08] LABS: Anion Gap 7 mEq/L (7-15); Blood Urea Nitrogen* 22 mg/dL (7-30); Calcium* 8.8 mg/dL (8.4-10.6); Carbon Dioxide* 29 mmol/L (20-32); Glucose* 115 mg/dL (60-115)
[2024-07-19 07:13] LABS: C Reactive Protein* < 0.5 mg/dL (0.5-1.0)
[2024-07-19 07:45] VITALS: BP 116/69; PULSE 86; PULSE 91; RESP 16; TEMP 36.8; O2SAT 94; O2SAT 95
[2024-07-19] MEDS: metroNIDAZOLE 500 MG/100 ML PIGGYBACK 200 MG IVPB (07:55)
[2024-07-19] MEDS: ACETAMINOPHEN 325 MG TABLET 650 MG PO (07:55)
[2024-07-19] MEDS: TORSEMIDE 20 MG TABLET 80 MG PO (08:46)
[2024-07-19] MEDS: EZETIMIBE 10 MG TABLET PO (08:46)
[2024-07-19] MEDS: LOSARTAN POTASSIUM 50 MG TABLET PO (08:47)
[2024-07-19] MEDS: VENLAFAXINE ER 75 MG CAPSULE 150 MG PO (08:47)
[2024-07-19] MEDS: ATORVASTATIN CALCIUM 40 MG TABLET 80 MG PO (08:47)
--- NOTE | 2024-07-19 10:28 | PM.DS1 ---
DS: Providers Provider Date Seen: 07/19/24 Date of admission: 07/18/24 13:31 Primary care physician: Laly Dickey PA-C Admitting Clinician: Juanito Adame MD Attending Physician on discharge: YOBANI Gutierrez, KHUSHBOO [facility]ist Date of Discharge: 07/19/24 DS: Diagnosis Discharge Diagnosis (1) Acute parotitis: Status: Acute Problem details: -recurrent since 06/19/2024 -initially treated with 5 days of IV antibiotics at [facility], [place], [place]. -then completed to different 7 day courses of oral levofloxacin and metronidazole, most recently completed about 4 days ago. -07/17/2024: Initiate ceftriaxone 2 g IV Q 24 hours and metronidazole 500 mg IV q.8 hours and monitor overnight in hospital. If does well consider switching back to levofloxacin and metronidazole orally for 14 days with follow-up. - 07/18 afebrile, WBC wnl, face significantly edematous, but no symptoms that cross midline. Reviewed CT face from yesterday, no evidence of encroachment on airway. No new symptoms today to suggest that either. Continue IV antibiotics yet today. BP is soft, so will give gentle IVF bolus. Encourage po fluid intake. On day of discharge, 07/19, has continued to improve. Pain remains unchanged but tolerable per patient report. Facial edema improved. Airway is patent without edema. Tolerating orals without difficulty. Blood pressures improved. Transitioned to oral cefuroxime and metronidazole. Has an appointment with her PCP tomorrow which is reassuring. Will ask PCP to refer her to [facility] to follow-up with her specialist there for ongoing management. (2) Infective sialoadenitis: Status: Acute Problem details: as above Outpatient follow-up at [facility] for ongoing management. Has an appointment with her PCP at [facility] 07/20/24. (3) Chronic renal insufficiency: Status: Acute Problem details: CKD stage 3b. Creatinine is at baseline, 1.5. Improved to 1.3 on day of discharge. (4) Diabetes mellitus: Status: Chronic Problem details: Diet controlled. ISS at [facility] while in hospital. (5) Obstructive sleep apnea: Status: Chronic Problem details: Stopped using CPAP years ago. Recommend outpatient re-evaluation with sleep specialist. Monitor for complications related to opioid use for pain (6) Obesity: Status: Chronic Problem details: Has had some weight loss on Ozempic. (7) Heart failure with preserved ejection fraction: Status: Chronic Problem details: Chronic, stable. Currently appears well compensated. (8) COPD (chronic obstructive pulmonary disease): Status: Chronic Problem details: Currently appears to be well compensated. DS: Summary Hospital Course Hospital Course: [age] year old female was readmitted to the medical floor for further management recurrent parotitis. Onset of initial episode was 06/19/2024, she was intubated on 06/21/2024 given impending airway obstruction and transfer to [facility] for further management. She received IV antibiotics followed by an oral course of antibiotics and shortly after completing these antibiotics return to this ED with recurrence of swelling. Here she was initiated on IV antibiotics again, and is discharged on oral cefuroxime and metronidazole, previously treated with oral levofloxacin and metronidazole. She has an outpatient appointment with her PCP tomorrow, 07/20/24, and should be referred back to her specialist at [facility] for further management. Course of care and details as noted above. Remainder of chronic medical comorbidities were monitored and managed with home medications. Status at Discharge Overall status at discharge: patient is back to baseline Time Spent with Patient Time attestation: Total time spent providing and/or coordinating discharge services: Time spent: Greater than 30 minutes Exam Narrative: Exam Narrative: PHYSICAL EXAM General: Pleasant, conversant, NAD HEENT: Mild facial swelling, tenderness on palpation right side, visualized airway is patent without edema Cardiovascular: RRR Pulmonary: No dyspnea Neurological: Alert, answering questions appropriately Skin: Warm, dry. Const: Vital Signs, click to edit/add: Vital Signs - 24 hr 07/18/24 12:10 07/18/24 15:00 07/18/24 15:00 Temperature 98.8 F Pulse Rate [Left P ulse Oximeter] 90 89 Respiratory Rate 16 16 16 Blood Pressure [Le ft Arm] 105/50 L Pulse Oximetry 95 96 Oxygen Delivery Me thod Room Air Room Air 07/18/24 15:30 07/18/24 19:51 07/18/24 23:49 Temperature 98.7 F 98.7 F Pulse Rate [Left P ulse Oximeter] 89 85 Respiratory Rate 16 16 16 Blood Pressure [Le ft Arm] 119/67 104/68 Pulse Oximetry 96 95 94 Oxygen Delivery Me thod Room Air Room Air Room Air 07/18/24 23:49 07/19/24 06:16 07/19/24 07:45 Temperature 98.4 F 98.2 F Pulse Rate [Left P ulse Oximeter] 88 86 86 Respiratory Rate 16 16 16 Blood Pressure [Le ft Arm] 138/72 147/83 H Pulse Oximetry 93 94 Oxygen Delivery Me thod Room Air Room Air 07/19/24 07:45 07/19/24 07:45 Temperature 98.2 F Pulse Rate [Left P ulse Oximeter] 91 Respiratory Rate 16 16 Blood Pressure [Le ft Arm] 116/69 Pulse Oximetry 95 94 Oxygen Delivery Me thod Room Air Room Air DS: Data Data Completed and Pending Completed studies during hospitalization: Procedures Insertion of Endotracheal Airway into Trachea, Via Natural or Artificial Opening (06/20/24) Introduction of Other Gas into Respiratory Tract, Via Natural or Artificial Opening (10/10/23) Labs on day of discharge: Labs from last 24 hours 07/19/24 06:22 WBC 7.57 RBC 3.64 L Hgb 11.0 L Hct 33.5 MCV 92 MCH 30 MCHC 33 RDW Coeff of Isiah 13.2 Plt Count 235 Neut % (Auto) 49.2 Lymph % (Auto) 34.9 [place] % (Auto) 9.1 Eos % (Auto) 6.2 Baso % (Auto) 0.5 Neut # (Auto) 3.72 Lymph # (Auto) 2.64 [place] # (Auto) 0.70 Eos # (Auto) 0.47 Baso # (Auto) 0.04 Abs Immat Gran (auto) 0.01 Imm/Tot Granulo (auto) 0.1 Sodium 138 Potassium 4.1 Chloride 102 Carbon Dioxide 29 Anion Gap 7 BUN 22 Creatinine 1.3 Estimated Creat Clear 37.16 Estimated GFR 44 Glucose 115 Calcium 8.8 C-Reactive Protein < 0.5 L Preliminary micro results at discharge 07/17/24 13:28 Blood Culture - Preliminary Blood NO GROWTH AFTER 24 HOURS Imaging Soft tissue neck: Attestation: I have reviewed the pertinent imaging results. Radiologist's impression: Skull base: Unremarkable. Pharynx/Larynx/Trachea: Epiglottis is normal. Airway is patent. Adjacent soft tissues are normal. Salivary glands: Unremarkable. Previously noted enlargement and soft tissue swelling of the right parotid gland has resolved. Thyroid gland: Subcentimeter hypodense nodules in the thyroid, which do not meet criteria for follow-up. Lymph nodes: No lymphadenopathy. Vessels: Moderate atherosclerosis of the carotid bulbs. Bones: Moderate degenerative disease of the cervical spine. Misc: Unremarkable. Lung apices: Unremarkable. IMPRESSION: Previously noted right parotitis is resolved. Airway is patent. Discharge Plan Discharge Disposition: Home, Self-Care Date of Admission: 07/18/24 13:31 Attending Provider on Discharge: Leilani Carrion Primary Care Provider: Laly Dickey Condition: Improved Anticipated Discharge Date/Time: 07/19/24 10:20 Discharge Medications: New metronidazole 500 mg tablet 500 mg PO Q8H Qty: 30 0RF cefuroxime axetil 500 mg tablet 500 mg PO BID Qty: 20 0RF Continued albuterol sulfate 90 mcg/actuation HFA aerosol inhaler 2 puff INHALATION Q4H PRN Rx Instructions: Inhale 2 puffs every 4 (four) hours as needed for shortness of breath. amitriptyline 50 mg tablet 150 mg PO HS Rx Instructions: TAKE 3 TABLETS(150 MG) BY MOUTH AT BEDTIME aspirin 81 mg tablet,delayed release (DR/EC) 81 mg PO HS Rx Instructions: Take 81 mg by mouth at bedtime. atorvastatin 80 mg tablet 80 mg PO DAILY Rx Instructions: Take 1 tablet (80 mg total) by mouth daily. diclofenac sodium 1 % gel 4 g TOPICAL QID PRN Rx Instructions: Apply 4 g topically 4 (four) times a day as needed (Pain). Apply to right shoulder. ezetimibe 10 mg tablet 10 mg PO DAILY Rx Instructions: TAKE 1 TABLET(10 MG) BY MOUTH DAILY gabapentin 300 mg capsule 300 mg PO HS Rx Instructions: Take 1 capsule (300 mg total) by mouth at bedtime. multivitamin with minerals Capsule 1 cap PO DAILY Spiriva Respimat 2.5 mcg/actuation mist 2 inh INHALATION Q24H Rx Instructions: Inhale 2 puffs daily. torsemide 20 mg tablet 80 mg PO DAILY Rx Instructions: TAKE 4 TABLETS(80 MG) BY MOUTH DAILY tramadol 50 mg tablet 50 mg PO HS PRN Rx Instructions: Take 1 tablet (50 mg total) by mouth at bedtime as needed for pain Indications: Chronic Pain/Nonacute Pain. venlafaxine 150 mg capsule,extended release 24hr 150 mg PO DAILY Rx Instructions: TAKE 1 CAPSULE(150 MG) BY MOUTH DAILY semaglutide 1 mg/dose (4 mg/3 mL) pen injector 1 mg SUBCUT .weekly Rx Instructions: Inject 1 mg under the skin every 7 (seven) days. TAKES ON WEDNESDAY MORNINGS omeprazole 40 mg capsule,delayed release(DR/EC) 40 mg PO BID Rx Instructions: Take 1 capsule (40 mg total) by mouth 2 (two) times a day before breakfast and dinner. losartan 50 mg tablet 50 mg PO DAILY Discharge Orders: Discharge Order (Routine); Ordered 07/19/24 Ordered By: Leilani Carrion Patient Education: Cefuroxime (By mouth), Metronidazole (By mouth) Additional Instructions: Follow up with your PCP tomorrow as scheduled. She will need to refer you back to your specialist in [place] for further management of you parotitis. Continue the oral antibiotics. You may continue Tramadol as needed for pain. Activity Level: No Restrictions Discharge Diet: Regular Follow Up Appointments: Laly Dickey PA-C [Primary Care Provider] - 07/20/24 (Has an appt already scheduled for tomorrow) Forms: [employer] Info Instructions
--- NOTE | 2024-07-19 11:41 | PC.NURSE ---
Discharge. pt has been very pleasant. she is alert and orientated x4. right side jaw pain is 6-7/10 pt is tolerating pain well. she is able to drink and eat and swallow with no problems. she is eating, drinking and voiding. SL was d/c intact. went over discharge packet with pt and went over medications, appointment, education and instructions. she got a w/c ride out
== END 2024-07-19 10:55 | disposition home or self-care (01) | DRG 155 ==
LOC: ED 15:58 → MEDSURG 16:25
PROVIDERS: Family Medicine; Admitting Provider Internal Medicine; Emergency Provider Family Medicine; PCP Internal Medicine; Visit Provider Internal Medicine
DX: K11.22 Acute recurrent sialoadenitis (principal); G91.2 (Idiopathic) normal pressure hydrocephalus; I13.0 Hypertensive heart and chronic kidney disease with heart failure and stage 1 through stage 4 chronic kidney disease, or unspecified chronic kidney disease; I50.32 Chronic diastolic (congestive) heart failure; G47.33 Obstructive sleep apnea (adult) (pediatric); E11.22 Type 2 diabetes mellitus with diabetic chronic kidney disease; E11.43 Type 2 diabetes mellitus with diabetic autonomic (poly)neuropathy; N18.32 Chronic kidney disease, stage 3b; J44.9 Chronic obstructive pulmonary disease, unspecified; Z79.85 Long-term (current) use of injectable non-insulin antidiabetic drugs; E66.9 Obesity, unspecified; Z68.37 Body mass index [BMI] 37.0-37.9, adult; K21.9 Gastro-esophageal reflux disease without esophagitis; F41.9 Anxiety disorder, unspecified; E78.5 Hyperlipidemia, unspecified
CPT/HCPCS: 36415; 70491; 80048; 80053; 82803; 82962; 83605; 85025; 85027; 86140; 87040; 87070; 87081; 99284; 99285; A9270; G0378; J0696; J1650; J1836; J7030; J7644; Q9967

== ENCOUNTER 2024-08-01 09:38 | Outpatient (CLI) | payer MEDICARE, BC, SELFPAY | END 2024-08-01 09:39 | disposition home or self-care (01) | PROVIDERS: PCP Family Medicine; Visit Provider Family Medicine | DX: K11.21 Acute sialoadenitis (principal) | CPT/HCPCS: 80048; 85025; 86140 ==

== ENCOUNTER 2024-08-15 14:07 | Inpatient (IN) | payer MEDICARE, BC, SELFPAY ==
[2024-08-15] VITALS (54 sets, daily range): BP systolic 111–149; BP diastolic 61–87; PULSE 88–112; RESP 9–32; TEMP 36.9–39.7; O2SAT 88–94; BMI 31.2; BMI 37.1
--- OUTSIDE RECORDS SUMMARY | 2024-08-15 14:09 | XMS_ITS | Encounter Summary ---
Author Organization [facility] Address [address] [place] [address] Care Team Providers Care Auto Body Estimator Name Role Phone Laly Dickey P.A.-C. Primary Care Pro vider Encounter Details Date Type Department Care Team (Late st Contact Info) Description 06/13/2024 Clinical Communication Pharmacy Prior Auth [phone] Eli Baldwin I. Social History Tobacco Use Types Packs/Day Years Used Date Smoking Tobacco: Former Cigarettes 2 30 0 11/13/1975 - 11/12/2005 Passive Smoke Exposure: Never Smokeless Tobacco: Never Alcohol Use Standard Drinks/Week Comments Not Currently 0 (1 standard drink = 0.6 oz pur e alcohol) [facility] Utilities Answer Date Recorded In the past 12 months has [facility] [employer], gas, oil, or water [employer] threatened to shut off services in your home? No 06/23/2024 Humiliation, Afraid, Rape, and Kick questionnair e Answer Date Recorded Within the last year, have y ou been afraid of your partner or ex-partner? No 06/23/2024 Within the last year, have y ou been humiliated or emotionally abused in other ways by your partner or ex-partner? No Within the last year, have y ou been kicked, hit, slapped, or otherwise physically hurt by your partner or ex-partner? No 06/23/2024 Within the last year, have y ou been raped or forced to have any kind of sexual activity by your partner or ex-partner? No 06/23/2024 Overall Financial Resource Strain (CARDIA) Answe r Date Recorded How hard is it for you to pa y for the very basics like food, housing, medical care, and heating? Not hard at all 12/18/2022 PHQ-2 Answer Date Recorded PHQ-2 Score 0 07/05/2024 Exercise Vital Sign Answer Date Recorde d [...] the money to buy more. Never true 06/23/19 25 Within the past 12 months, t he food you bought just didn't last and you didn't have money to get more. Never true 06/23/2024 PRAPARE - Transportation Answer Date Re corded In the past 12 months, has l ack of transportation kept you from medical appointments or from getting medications? No 06/01 In the past 12 months, has l ack of transportation kept you from meetings, work, or from getting things needed for daily living? No 06/23/2024 Depression Answer Date Recor ded PHQ-9 Total Score (max 27) 0 07/05 Nutrition Answer Date Recorded On average, how [...] your living situation today? 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 No 06/23/2024 3:00 PM Aguilar Lincoln M.S.N., R.N. Within the last year, have y ou been afraid of your partner or ex-partner? No 06/23/2024 3:00 PM Deb Lincoln M.S.N., R.N. Within the last year, have y ou been raped or forced to have any kind of sexual activity by your partner or ex-partner? No 06/23/2024 3:00 PM Rex Lincoln M.S.N., R.N. Within the last year, have y ou been kicked, hit, slapped, or otherwise physically hurt by your partner or ex-partner? No 06/23/2024 3:00 PM Rex Lincoln M.S.N., R.N. documented as of this encounter Plan of Treatment Upcoming Encounters Date Type Department Care Team (Late st Contact Info) Description 09/20/2024 3:00 PM CDT Appointment Department of Neurology in [place], [place] [address] [place] [phone] Carmen Petit APRN, C.N.P., M.S.N. [address] [place] [phone] 09/20/2024 3:45 PM CDT Appointment Department of Radiology, [facility], in [place], [place] [address] [place] [phone] Carmen Petit APRN, C.N.P., M.S.N. [address] [place] [phone] 09/21/2024 9:30 AM CDT Office Visit Department of Neurologic Surgery in [place], [place] [address] [place] [phone] Ashley Watts P.A.-C. [address] [place] [phone] 10/09/2024 9:30 AM CDT Office Visit Department of Otorhinolaryngology in [place], [place] [address] [place] [phone] Montserrat Jacobs M.D. [address] [place] [phone] Scheduled Procedures Name Priority Associated Diagnoses Date/Ti me ARTHROPLASTY TOTAL REVERSE SHOULDER Fracture 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 documented as of this encounter Visit Diagnoses Not on filedocumented in this encounter Additional Health Concerns Assessment Noted Time PHQ-9 Depression Total Score: 5 02/14/20 24 9:00 AM CDT documented as of this encounter Care Teams Auto Body Estimator Relationship Specialty Start Date End Date Laly Dickey MPAS, P.A.-C. [address] [place] [phone] PCP - General Internal Medicine 07/28/22 documented as of this encounter
--- OUTSIDE RECORDS SUMMARY | 2024-08-15 14:09 | XMS_ITS | Encounter Summary ---
Author Organization [facility] Address [address] [place] [address] Care Team Providers Care Client Experience Administrator Name Role Phone Laly Dickey, P.A.-CKavya Primary Care Pro vider Reason for Visit * Reason Comments Med Refill Encounter Details Date Type Department Care Team (Late st Contact Info) Description 06/03/2024 Refill Department of Community Internal Medicine in [place], [place] [address] [place] [phone] Laly Dickey MPAS, P.A.-CKavya [address] [place] [phone] Med Refill Social History Tobacco Use Types Packs/Day Years Used Date Smoking Tobacco: Former Cigarettes 2 30 0 11/13/1975 - 11/12/2005 Passive Smoke Exposure: Never Smokeless Tobacco: Never Alcohol Use Standard Drinks/Week Comments Not Currently 0 (1 standard drink = 0.6 oz pur e alcohol) [facility] Utilities Answer Date Recorded In the past 12 months has e [employer], gas, oil, or water company threatened to [...] your living situation today? 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 No 06/23/2024 3:00 PM DEHYDRATING PRESS OPERATOR Aguilar Combs M.S.N., R.N. Within the last year, have [...] PM CDT Appointment Department of Neurology in [place], [place] [address] [place] [phone] Carmen Petit APRN, C.N.P., M.S.N. [address] [place] [phone] 09/20/2024 3:45 PM CDT Appointment Department of Radiology, [facility], in [place], [place] [address] [place] [phone] Carmen Petit APRN, C.N.P., M.S.N. [address] [place] [phone] 09/21/2024 9:30 AM CDT Office Visit Department of Neurologic Surgery in [place], [place] [address] [place] [phone] Ashley Wtats P.A.-C. [address] [place] [phone] 10/09/2024 9:30 AM CDT Office Visit Department of Otorhinolaryngology in [place], [place] [address] [place] [phone] Montserrat Jacobs M.D. [address] [place] [phone] Scheduled Procedures Name Priority Associated Diagnoses Date/Ti me ARTHROPLASTY TOTAL REVERSE SHOULDER Fracture 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 documented as of this encounter Visit Diagnoses Not on filedocumented in this encounter Additional Health Concerns Assessment Noted Time PHQ-9 Depression Total Score: 5 02/14/20 24 9:00 AM CDT documented as of this encounter Care Teams Client Experience Administrator Relationship Specialty Start Date End Date Laly Dickey MPAS, P.A.-C. [address] [place] [phone] PCP - General Internal Medicine 07/28/22 documented as of this encounter
--- OUTSIDE RECORDS SUMMARY | 2024-08-15 14:09 | XMS_ITS | Clinical Summary ---
Author Organization [facility] Address [address] [place] [address] Care Team Providers Care Radio Division Lieutenant Name Role Phone Laly Dickey P.A.-C. Primary Care Pro vider Source Comments Patient records contain information from all sites at [facility]. For routine questions regarding patient records, call [phone] during business hours, M-F 8:00 AM - 5:00 PM Central Time. Record requests for emergency care only can be directed to [phone] at any time.[facility] Allergies Active Allergy Reactions Criticality Noted Date Comments Adhesive Hives (Reselect Reaction),Rash High 03/29 Blisters Metformin Other (see comments) 03/01/2023 GI intolerance Penicillin Hives (Reselect Reaction) High 03/29/2013 Hospitalized Medications aspirin [address] tablet Take 81 mg by mouth at bedtime. 02/10/20 22 Active polyethylene glycol (MIRALAX) 17 gram/dose oral powder Take 1 packet by mouth as needed for constipation. 12/20/19 20 Active multivit with minerals/lute in (MULTIVITAMIN 50 PLUS ORAL) Take 1 tablet by mouth daily. Active BD Ultra-Fine Short Pen Needle 31 gauge x 5/16 needle USE DIRECTED 11/08/19 23 Active venlafaxine [...] daily 12 g 3 03/13/20 24 Active ezetimibe (Zetia) 10 mg tablet [...] days. 3 mL 11 06/14/19 25 Active Additional Information Patient taking differently:2 mg subcutaneous Every 7 days,Injects on Wednesday's, Reported on 08/14/2024 atorvastatin (Lipitor) 80 mg tablet Take 1 tablet (80 mg total) by mouth daily. 90 tablet 3 06/14/19 25 026 Active amitriptyline (ElaviL) 50 mg tablet Take 2 tablets (100 mg total) by mouth at bedtime. 06/20/19 25 Active Additional Information Patient taking differently: 150 mgoral Daily at bedtime, Reported on 08/14/2024 gabapentin (Neurontin) 300 mg capsule Take 1 capsule (300 mg total) by mouth 2 (two) times a day. 06/20/19 026 Active Additional Information Patient taking differently:300 mg oralDaily at bedtime, Reported on 08/14/2024 acetaminophen (TylenoL) 500 mg tablet Take 2 tablets (1,000 mg total) by mouth every 6 (six) hours as needed for mild pain or score 1-3 of 10, moderate pain or score 4-6 of 10 or severe pain or score 7-10 of 10. 06/25/19 Active Additional Information Patient taking differently: 1,500 mgoral3 times daily PRN, mild pain or score 1-3 of 10, moderate pain or score 4-6 of 10, severe pain or score 7-10 of 10, Reported on 08/14/2024 sennosides-do cusate sodium (Senokot-S) 8.6-50 mg per tablet Take 1 tablet by mouth 2 (two) times a day. 06/25/19 Active Additional Information Patient taking differently:1 tablet oral2 times daily PRN, constipation, Reported on 08/14/2024 albuterol 90 mcg/actuation inhaler Inhale 2 puffs every 4 (four) hours as needed for shortness of breath. 54 g 3 07/05/19 25 026 Active traMADoL (Ultram) 50 mg tabletIndicat ions:Chronic Pain/Nonacute Pain Take 1 tablet (50 mg total) by mouth 2 (two) times a day as needed for pain for up to 28 days Indications: Chronic Pain/Nonacute Pain. 56 tablet 07/24/19 25 025 Active oxyCODONE (Roxicodone) 5 mg immediate release tabletIndicat ions:Acute Pain Take 1 tablet (5 mg total) by mouth every 4 (four) hours as needed for severe pain or score 7-10 of 10 for up to 3 days Indication: Acute Pain. 18 tablet 5 10:20 AM CDT 08/15/19 25 025 Active traMADoL (Ultram) 50 mg tabletIndicat ions:Chronic Pain/Nonacute Pain Take 1 tablet (50 mg total) by mouth 2 (two) times a day as needed for severe pain or score 7-10 of 10 Indications: Chronic Pain/Nonacute Pain. 28 tablet 06/20/19 25 025 Discontinued cefUROXime (Ceftin) 500 mg tablet Take 1 tablet by mouth 2 (two) times a day. 07/19/19 025 Discontinued(T herapy completed) metroNIDAZOLE (FlagyL) 500 mg tablet Take 1 tablet by mouth 2 (two) times a day. 07/19/19 025 Discontinued(T herapy completed) semaglutide (Ozempic) 1 mg/dose (4 mg/3 mL) injection Inject 1 mg under the skin every 7 (seven) days. 10/10/19 025 Discontinued(D ose adjustment) traMADoL (Ultram) 50 mg tablet Take 50 mg by mouth. Bedtime as needed. 10/10/19 025 Discontinued(D ose adjustment) Active Problems Problem Noted Date Diagnosed Date Parotitis 06/21/2024 Hydrocephalus Normal Pressure 04/24/2024 Insomnia 03/01/2023 Migraine [...] 09/08/2022 Overview (01/20/2023): Consult with Orthopedics in [place] August 2022. Patient elected for surgical intervention [...] Encounters Date Type Department Care Team Description 5 8:17 AM CDT Anesthesia Event [facility] OR [facility] [place] [phone] Agatha Chandler M.D. Omar, Ibrahim A, M.D. 5 7:50 AM CDT - 5 10:52 AM CDT Surgery [facility] MAIN OR [address] [place] [phone] Agustin Granda M.D., Ph.D. ventriculoperitoneal shunt placement. 5 6:59 AM CDT - 5 11:59 PM CDT Hospital Encounter Department of Radiology, [facility], in [address] [phone] Agustin Granda M.D., Ph.D. Hydrocephalus Normal Pressure (HCC); Preoperative Exam Discharge Disposition: Home or Self Care 5 5:38 AM CDT - 5 11:21 AM CDT Hospital Encounter [facility], [facility], [facility], Ninth Floor [address] [place] [phone] Agustin Granda M.D., Ph.D. Discharge Disposition: Home or Self Care 5 Clinical Communication RST HIM [address] [place] [phone] Agustin Granda M.D., Ph.D. Post Hospital Follow-up 5 2:30 PM CDT Comprehensive Visit Department of Otorhinolaryngology in [place], [place] [address] [place] [phone] Montserrat Jacobs M.D. Acute Sialoadenitis 5 1:30 PM CDT Comprehensive Visit Division of Trauma Critical Care and General Surgery in [place], [place] [address] [place] [phone] Agustin Granda M.D., Ph.D. Aaliyah Lazo M.D. Hydrocephalus Normal Pressure (HCC) (Primary Dx); Preoperative Exam 5 2:05 PM CDT Ancillary Procedure Department of Neurology 5 1:35 PM CDT - 5 3:02 PM CDT Hospital Encounter Department of Neurology in [place], [place] [address] [place] [phone] Agustin Granda M.D., Ph.D. Ricardo Nayak M.D. Hydrocephalus Normal Pressure (HCC) Discharge Disposition: Home or Self Care 5 9:50 AM CDT - 5 11:59 PM CDT Hospital Encounter Department of Laboratory Medicine in [address] [phone] Agustin Granda M.D., Ph.D. Hydrocephalus Normal Pressure (HCC); Preoperative Exam; Chronic Kidney Disease Stage 4 Glomerular Filtration Rate 15-29 (HCC) Discharge Disposition: Home or Self Care 5 3:15 PM CDT Clinical Communication Virtual Review in [place], [place] [address] [place] [address] Pre-visit Intake [address] [place] [address] AND [facility] [address] [place] [address] Walter Mcgovern M.D. Acute Sialoadenitis (Primary Dx) 5 Refill Department of Community Internal Medicine in [address] [phone] Laly Dickey MPAS, P.A.-C. Med Refill 5 Results Follow-Up RST [address] [phone] Mona Sneed M.D., M.H.A. Bacteria / Cherry Culture, Blood #1, Bacteria / Cherry Culture, Blood #2, Fungal Culture, Routine 5 10:43 AM OUTPATIENT PHYSICAL THERAPIST ASSISTANT - 5 11:59 PM OUTPATIENT PHYSICAL THERAPIST ASSISTANT Hospital Encounter Department of Laboratory Medicine in [address] [phone] Laly Dickey MPAS, P.A.-C. Parotitis Discharge Disposition: Home or Self Care 5 10:30 AM OUTPATIENT PHYSICAL THERAPIST ASSISTANT Office Visit Department of Community Internal Medicine in [address] [phone] Laly Dickey MPAS, P.A.-C. Parotitis (Primary Dx); Hydrocephalus Normal Pressure (HCC); Hyperlipidemia Mixed; Migraine Headache 5 Clinical Communication Department of Community Internal Medicine in [address] [phone] Laly Dickey MPAS, P.A.-C. 5 Results Follow-Up Department of Community Internal Medicine in [address] [phone] Laly Dickey MPAS, P.A.-C. CBC with Differential, Blood 5 Clinical Communication Department of Community Internal Medicine in [place], [place] [address] [place] [phone] Laly Dickey MPAS, P.A.-C. Communication 5 Clinical Communication Section of Infectious Diseases in [place], [place] [address] [place] [phone] Nunu Alford M.B.B.S. 5 Clinical Communication Department of Neurologic Surgery in [place], [place] [address] [place] [phone] Brina Rich RFrancesco 5 Orders Only Department of Neurologic Surgery in [place], [place] [address] [place] [phone] Judith Sellers Hydrocephalus Normal Pressure (HCC) (Primary Dx) 5 Clinical Communication Department of Community Internal Medicine in [place], [place] [address] [place] [phone] Laly Dickey MPAS, P.A.-C. PandaDoc Form ([facility] - test strips ) 5 Clinical Communication Department of Neurologic Surgery in [place], [place] [address] [place] [address] Agustin Granda M.D., Ph.D. 5 Clinical Communication Department of Community Internal Medicine in [place], [place] [address] [place] [phone] Clarice Rivera RJossy. Post Hospital Follow-up 5 1:39 PM OUTPATIENT PHYSICAL THERAPIST ASSISTANT - 5 1:05 PM OUTPATIENT PHYSICAL THERAPIST ASSISTANT Hospital Encounter [facility], [facility], [facility], Third Floor [address] [place] [phone] Seble, Vee S, MSkyler Cox M.D. Dugani, Chandrasagar, M.D., Ph.D. Decline Functional Status [R53.81] (Primary Dx); Parotitis Discharge Disposition: Home or Self Care 5 Intake [facility] 5 10:32 AM OUTPATIENT PHYSICAL THERAPIST ASSISTANT - 5 11:59 PM OUTPATIENT PHYSICAL THERAPIST ASSISTANT Hospital Encounter Department of Laboratory Medicine in [address] [phone] Laly Dickey MPAS, P.A.-C. Parotitis Discharge Disposition: Home or Self Care 5 9:20 AM OUTPATIENT PHYSICAL THERAPIST ASSISTANT Office Visit Department of Community Internal Medicine in [address] [phone] Laly Dickey MPAS, P.A.-C. Parotitis (Primary Dx); Preanesthetic Medical Exam; Pain Shoulder Right; Pain Low Back Chronic; Chronic Kidney Disease Stage 4 Glomerular Filtration Rate 15-29 (HCC); Migraine Headache; History Of Falling; Insomnia; Fracture 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 5 Results Follow-Up Department of Community Internal Medicine in [address] [phone] Laly Dickey MPAS, P.A.-C. CBC with Differential, Blood, CRP (C-Reactive Protein), Mumps Virus PCR, Buccal 5 Clinical Communication Department of Community Internal Medicine in [address] [phone] Laly Dickey MPAS, P.A.-C. Communication 5 Nurse Triage Department of Community Internal Medicine in [address] [phone] Indira Carrillo R.N. Swollen Glands 5 9:23 AM OUTPATIENT PHYSICAL THERAPIST ASSISTANT - 5 11:59 PM OUTPATIENT PHYSICAL THERAPIST ASSISTANT Hospital Encounter Department of Laboratory Medicine in [address] [phone] Laly Dickey MPAS, P.A.-C. Diabetes Mellitus Type 2 With Diabetic Polyneuropathy (HCC) Discharge Disposition: Home or Self Care 5 9:23 AM OUTPATIENT PHYSICAL THERAPIST ASSISTANT - 5 11:59 PM OUTPATIENT PHYSICAL THERAPIST ASSISTANT Hospital Encounter Department of Laboratory Medicine in [address] [phone] Laly Dickey MPAS, P.A.-C. Chronic Kidney Disease (CKD), Stage 3b Glomerular Filtration Rate (GFR) 30 To 44 (HCC) Discharge Disposition: Home or Self Care 5 8:40 AM OUTPATIENT PHYSICAL THERAPIST ASSISTANT Office Visit Department of Community Internal Medicine in [address] [phone] Laly Dickey MPAS, P.A.-C. Obesity Body Mass [...] (HCC); Anxiety Generalized Disorder; History Of Falling 5 Clinical Communication Pharmacy Prior [facility] [phone] Eli aBldwin I. 5 Clinical Communication Department of [facility] Internal Medicine in [address] [phone] Laly Dickey MPAS, P.A.-C. Med Question 5 Refill Department of Community Internal Medicine in [address] [phone] Laly Dickey MPAS, P.A.-C. Med Refill 5 7:41 AM OUTPATIENT PHYSICAL THERAPIST ASSISTANT - 5 11:59 PM OUTPATIENT PHYSICAL THERAPIST ASSISTANT Hospital Encounter Department of Laboratory Medicine in [address] [phone] Laly Dickey MPAS, P.A.-C. Diabetes Mellitus Type 2 With Diabetic Polyneuropathy (HCC); Chronic Kidney Disease (CKD), Stage 3b Glomerular Filtration Rate (GFR) 30 To 44 (HCC); Diabetes Mellitus Type 2 With Diabetic Polyneuropathy (HCC) Discharge Disposition: Home or Self Care 5 Refill Department of Community Internal Medicine in [address] [phone] Laly Dickey MPAS, P.A.-C. Med Refill 5 Refill Department of Community Internal Medicine in [address] [phone] Laly Dickey MPAS, P.A.-C. Med Refill 4 Refill Department of Community Internal Medicine in [address] [phone] Laly Dickey MPAS, P.A.-C. Med Refill 4 Refill Department of Community Internal Medicine in [address] [phone] Laly Dickey MPAS, P.A.-C. Med Refill from [...] Diabetes mellitus type II Paternal Grandmother josselyn morales Diabetes Sister Angelina Heart murmur Son Ben [...] Tobacco: Never Tobacco Cessation:Counseling Given: Not Answered Comments:Quit smoking in 2002 Alcohol Use Standard Drinks/Week Comments Not Currently 0 (1 standard drink = 0.6 oz pur e alcohol) [facility] Utilities Answer Date Recorded In the past 12 months has e [employer], gas, oil, or water [employer] threatened to shut off services in your home? No 08/14/2024 Humiliation, Afraid, Rape, and Kick questionnair e Answer Date Recorded Within the last year, have y ou been afraid of your partner or ex-partner? No 08/14/2024 Within the last year, have y ou been humiliated or emotionally abused in other ways by your partner or ex-partner? No Within the last year, have y ou been kicked, hit, slapped, or otherwise physically hurt by your partner or ex-partner? No 08/14/2024 Within the last year, have y ou been raped or forced to have any kind of sexual activity by your partner or ex-partner? No 08/14/2024 Overall Financial Resource Strain (CARDIA) Answe r [...] the money to buy more. Never true 08/15/19 25 Within the past 12 months, t he food you bought just didn't last and you didn't have money to get more. Never true 08/14/2024 PRAPARE - Transportation Answer Date Re corded In the past 12 months, has l ack of transportation kept you from medical appointments or from getting medications? No 07/29 In the past 12 months, has l ack of transportation kept you from meetings, work, or from getting things needed for daily living? No 08/14/2024 Depression Answer Date Recor ded PHQ-9 Total [...] your living situation today? I have a [facility] to live 08/14/2024 Comments No Sex and Gender Information Value Date Recorded Sex Assigned at Female 03/19/2023 10:10 AM CDT Legal Sex Female 1:31 PM OUTPATIENT PHYSICAL THERAPIST ASSISTANT Gender Identity Female 03/19/2023 10:10 AM CDT Sexual Orientation Not on file Last Filed Vital Signs Vital Sign Reading Time Taken Comments Blood Pressure 134/57 08/15/2024 9:00 AM CDT Pulse 92 08/15/2024 9:00 AM CDT Temperature 36.9 C (98.4 F) 08/15/2024 9:00 AM CDT Respiratory Rate 15 08/15/2024 9:00 AM CDT Oxygen Saturation 89% 08/15/2024 9:00 AM CDT Inhaled Oxygen Concentration - - Weight 104 kg (228 lb 2.8 oz) 08/14/2024 5:54 AM CDT Height 175.3 cm (5' 9) 08/14/2024 5:54 AM CDT Body Mass Index 33.7 08/14/2024 5:54 AM CDT Plan of Treatment Upcoming Encounters Date Type Department Care Team (Late st Contact Info) Description 09/20/2024 3:00 PM CDT Appointment Department of Neurology in [place], [place] [address] [place] [phone] Carmen Petit APRN, C.N.P., M.S.N. [address] [place] [phone] 09/20/2024 3:45 PM CDT Appointment Department of Radiology, [facility], in [place], [place] [address] [place] [phone] Carmen Petit APRN, C.N.P., M.S.N. [address] [place] [phone] 09/21/2024 9:30 AM CDT Office Visit Department of Neurologic Surgery in [place], [place] [address] [place] [phone] Ashley Watts P.A.-C. [address] [place] [phone] 10/09/2024 9:30 AM CDT Office Visit Department of Otorhinolaryngology in [place], [place] [address] [place] [address] Montserrat Jacobs M.D. [address] [place] [phone] Scheduled Procedures Name Priority Associated Diagnoses Date/Ti [...] 07/03/2021, Additional history exists Mammogram 03/26/2024 03/26/2023, 0 01/2022, 02/06/2022, Additional history exists Controlled Substance Monitoring (UDS) 06/09/2024 03/22/2023 PEG assessment for Opioid therapy 09/07/2024 06/09/2024 Hemoglobin A1C 12/05/2024 06/07/2024, 070 07/2023, 06/01/2023, Additional history exists Controlled Substance Agreement 02/13/2025 02/14/2024 Generalized Anxiety (ADEN-7) 02/13/2025 02/14/2024 Visit: Medicare Annual Wellness 02/14/2025 02/14/2024 Opioid Use Disorder (OUD) Screening 06/09/2025 02/14/2024 Urine Albumin 06/14/2025 06/14/2024, 0 12/2024, 08/24/2022 Visit: Chronic Disease, age 18+ 06/14/2025 06/14/2024, 06/14/2024 Controlled Substance Monitoring (PHQ-9) 07/05/2025 07/05/2024 Office Visit for Blood Pressure Check / Re-check 07/05/2025 07/05/2024 Creatinine Level (Kidney Function Test) 08/08/2025 08/08/2024, 06/25/2024, 06/23/2024, Additional history exists Potassium Level 08/08/2025 08/08/2024, 06/01, 06/23/2024, Additional history exists Sodium Level 08/08/2025 08/08/2024, 06/01, 06/23/2024, Additional history exists Colonoscopy 05/22/2026 05/22/2021 (Perf ormed elsewhere) Colorectal Cancer Screening 05/22/2026 Lipid (Cholesterol) Screening 06/07/2029 06/07/2024, 02/26/2023, 02/06/2022, Additional history exists DTaP,Tdap,and Td Vaccines (4 - Td or Tdap) 12/01/2032 12/01/2022, 06/12/2014, 02/15/2013 Bone Density Scan (Osteoporosis Screen) Discontinued 01/12/2019 Pneumococcal vaccine (50+ years) Completed 03/29/2019, 03/22/2018, 02/15/2013, Additional history exists Zoster Vaccines Completed 07/14/2019, 04/30, 02/15/2013 Hepatitis B Vaccines Completed 02/14/2024, 06/02/19 Influenza Vaccine Completed 02/14/2024, , 02/09/2022, Additional history exists Opioid Risk Tool (ORT) Completed 07/05/2024 Fall Risk Screen (Annual) Completed 08/14/2024 IPV Vaccines Aged Out No longer eligi ble based on patient's age to complete this topic Medical Devices Implanted Type Area Hides Inspector Device Identifier Shelf Expiration Date Model / Serial / Lot Cath Josie Vines Vntr 23 - [id number] Implanted:Qty: 1 on 08/14/2024 by Agustin Granda M.D., Ph.D. at [facility] CSF Management Device Brain Codman 05/30/2025 [id number] / / [id number] Shnt Vlv Ventric Csf W/Sphngrd - [id number] Implanted:Qty: 1 on 08/14/2024 by Agustin Granda M.D., Ph.D. at [facility] CSF Management Device Neck Integra 11/27/2028 [id number] / / [id number] Cath Peritoneal Antibiotic - [id number] Implanted:Qty: 1 on 08/14/2024 by Aaliyah Lazo M.D. at [facility] Hardware e.g. pins/screws/r ods Abdomen Medtronic 11/08/2025 [id number] / / [id number] Knee Implant Knee Implant Bilateral: Knee Ocular Lens Ocular Lens Bilateral: Eye Procedures Procedure Name Priority Date/Time Associated Diagnosis Comments GLUCOSE POCT, B Routine 08/15/2024 7:57 AM CDT GLUCOSE POCT, B Routine 08/14/2024 9:34 PM CDT GLUCOSE POCT, B Routine 08/14/2024 4:[address] HEAD WITHOUT IV CONTRAST RAD - Routine (most inpatients and all outpatients) 08/14/2024 12:44 PM CDT DX ADULT PHOTOGRAMMETRIC TECH SHUNT SERIES RAD - Routine (most inpatients and all outpatients) 08/14/2024 12:24 PM CDT GLUCOSE POCT, B Routine 08/14/2024 11:21 AM CDT ADULT OXYGEN THERAPY Routine 08/14/2024 10:45 AM CDT GLUCOSE POCT, B Routine 08/14/2024 9:18 AM CDT AIRWAY MANAGEMENT Routine 08/14/2024 8:2 8 AM CDT LAPAROSCOPIC EXPLORATION - DIAGNOSTIC 08/14/2024 7:50 AM CDT Hydrocephalus Normal Pressure (HCC) Special Needs CT WITH FIDUCIALS DAY OF PROCEDURE. IMPLANTATION SHUNT VENTRICULAR PERITONEAL 08/14/2024 7:50 AM CDT Hydrocephalus Normal Pressure (HCC) Special Needs CT WITH FIDUCIALS DAY OF PROCEDURE. CT STEREOTACTIC LOCALIZATION RAD - Routine (most inpatients and all outpatients) 08/14/2024 7:33 AM CDT Hydrocephalus Normal Pressure (HCC) Preoperative Exam GLUCOSE POCT, B Routine 08/14/2024 6:27 AM CDT NEUROLOGY IMAGE EXAM Routine 08/09/2024 2:05 PM CDT NEUROLOGY GAIT DISORDERS LABORATORY Routine 08/09/2024 2:00 PM CDT Hydrocephalus Normal Pressure (HCC) BASIC METABOLIC PANEL, S/P Routine 08/08/2024 10:02 AM CDT Chronic Kidney Disease Stage 4 Glomerular Filtration Rate 15-29 (HCC) TYPE AND SCREEN Routine 08/08/2024 10:02 AM CDT Hydrocephalus Normal Pressure (HCC) Preoperative Exam OUTSIDE CT NEURO Routine 07/17/2024 2:15 PM OUTPATIENT PHYSICAL THERAPIST ASSISTANT C-REACTIVE PROTEIN (CRP), S/P Routine 07/05/2024 10:51 AM OUTPATIENT PHYSICAL THERAPIST ASSISTANT Parotitis CBC WITH DIFFERENTIAL, B Routine 07/05/2024 10:51 AM OUTPATIENT PHYSICAL THERAPIST ASSISTANT Parotitis GLUCOSE POCT, B Routine 06/25/2024 11:59 AM OUTPATIENT PHYSICAL THERAPIST ASSISTANT BASIC METABOLIC PANEL, S/P Routine 06/25/2024 7:39 AM OUTPATIENT PHYSICAL THERAPIST ASSISTANT CBC WITH DIFFERENTIAL, B Routine 06/25/2024 7:39 AM OUTPATIENT PHYSICAL THERAPIST ASSISTANT GLUCOSE POCT, B Routine 06/25/2024 7:34 AM OUTPATIENT PHYSICAL THERAPIST ASSISTANT GLUCOSE POCT, B Routine 06/25/2024 4:42 AM OUTPATIENT PHYSICAL THERAPIST ASSISTANT GLUCOSE POCT, B Routine 06/24/2024 7:46 PM OUTPATIENT PHYSICAL THERAPIST ASSISTANT GLUCOSE POCT, B Routine 06/24/2024 3:53 PM OUTPATIENT PHYSICAL THERAPIST ASSISTANT GLUCOSE POCT, B Routine 06/24/2024 12:05 PM OUTPATIENT PHYSICAL THERAPIST ASSISTANT ECG Routine 06/24/2024 11:24 AM OUTPATIENT PHYSICAL THERAPIST ASSISTANT GLUCOSE POCT, B Routine 06/24/2024 7:44 AM OUTPATIENT PHYSICAL THERAPIST ASSISTANT GLUCOSE POCT, B Routine 06/24/2024 3:02 AM OUTPATIENT PHYSICAL THERAPIST ASSISTANT CBC WITH DIFFERENTIAL, B STAT 06/23/2024 11:42 PM OUTPATIENT PHYSICAL THERAPIST ASSISTANT GLUCOSE POCT, B Routine 06/23/2024 11:29 PM OUTPATIENT PHYSICAL THERAPIST ASSISTANT BASIC METABOLIC PANEL, S/P Routine 06/23/2024 10:35 PM OUTPATIENT PHYSICAL THERAPIST ASSISTANT GLUCOSE POCT, B Routine 06/23/2024 7:57 PM OUTPATIENT PHYSICAL THERAPIST ASSISTANT GLUCOSE POCT, B Routine 06/23/2024 4:36 PM OUTPATIENT PHYSICAL THERAPIST ASSISTANT GLUCOSE POCT, B Routine 06/23/2024 11:18 AM OUTPATIENT PHYSICAL THERAPIST ASSISTANT GLUCOSE POCT, B Routine 06/23/2024 8:57 AM OUTPATIENT PHYSICAL THERAPIST ASSISTANT POTASSIUM, S/P STAT 06/23/2024 7:07 AM OUTPATIENT PHYSICAL THERAPIST ASSISTANT CBC WITH DIFFERENTIAL, B Timed 06/23/2024 4:55 AM OUTPATIENT PHYSICAL THERAPIST ASSISTANT BASIC METABOLIC PANEL, S/P Timed 06/23/2024 4:55 AM OUTPATIENT PHYSICAL THERAPIST ASSISTANT VANCOMYCIN, TROUGH, S Routine 06/23/2024 4:55 AM OUTPATIENT PHYSICAL THERAPIST ASSISTANT GLUCOSE POCT, B Routine 06/23/2024 4:29 AM OUTPATIENT PHYSICAL THERAPIST ASSISTANT GLUCOSE POCT, B Routine 06/22/2024 11:07 PM OUTPATIENT PHYSICAL THERAPIST ASSISTANT GLUCOSE POCT, B Routine 06/22/2024 8:24 PM OUTPATIENT PHYSICAL THERAPIST ASSISTANT GLUCOSE POCT, B Routine 06/22/2024 3:37 PM OUTPATIENT PHYSICAL THERAPIST ASSISTANT GLUCOSE POCT, B Routine 06/22/2024 11:49 AM OUTPATIENT PHYSICAL THERAPIST ASSISTANT MRSA/STAPHYLOCOCCUS AUREUS, NASAL, BY PCR Routine 06/22/2024 7:46 AM OUTPATIENT PHYSICAL THERAPIST ASSISTANT GLUCOSE POCT, B Routine 06/22/2024 7:41 AM OUTPATIENT PHYSICAL THERAPIST ASSISTANT PATIENT STATUS, ABG Timed 06/22/2024 4 :29 AM OUTPATIENT PHYSICAL THERAPIST ASSISTANT ABG W/COOX Timed 06/22/2024 4:29 AM OUTPATIENT PHYSICAL THERAPIST ASSISTANT CYSTATIN C WITH EGFR Timed 06/22/2024 4:28 AM OUTPATIENT PHYSICAL THERAPIST ASSISTANT BASIC METABOLIC PANEL, S/P Timed 06/22/2024 4:28 AM OUTPATIENT PHYSICAL THERAPIST ASSISTANT CBC WITH DIFFERENTIAL, B Timed 06/22/2024 4:28 AM OUTPATIENT PHYSICAL THERAPIST ASSISTANT GLUCOSE POCT, B Routine 06/22/2024 4:27 AM OUTPATIENT PHYSICAL THERAPIST ASSISTANT MAGNESIUM, S Routine 06/22/2024 4:24 AM OUTPATIENT PHYSICAL THERAPIST ASSISTANT PHOSPHORUS (INORGANIC), S Routine 06/22/2024 4:24 AM OUTPATIENT PHYSICAL THERAPIST ASSISTANT GLUCOSE POCT, B Routine 06/22/2024 12:06 AM OUTPATIENT PHYSICAL THERAPIST ASSISTANT MYCOBACTERIAL CULTURE, V Routine 06/21/2024 10:35 PM OUTPATIENT PHYSICAL THERAPIST ASSISTANT ACID FAST SMEAR FOR MYCOBACTERIUM Routine 06/21/2024 10:35 PM OUTPATIENT PHYSICAL THERAPIST ASSISTANT FUNGAL CULTURE, ROUTINE Routine 06/21/2024 10:35 PM OUTPATIENT PHYSICAL THERAPIST ASSISTANT FUNGAL SMEAR Routine 06/21/2024 10:35 PM OUTPATIENT PHYSICAL THERAPIST ASSISTANT BACTERIAL CULTURE, AEROBIC + SUSC, RESP Routine 06/21/2024 10:35 PM OUTPATIENT PHYSICAL THERAPIST ASSISTANT GRAM STAIN Routine 06/21/2024 10:35 PM OUTPATIENT PHYSICAL THERAPIST ASSISTANT GLUCOSE POCT, B Routine 06/21/2024 8:17 PM OUTPATIENT PHYSICAL THERAPIST ASSISTANT CT HEAD WITHOUT IV CONTRAST RAD - Semiurgent (Fast; most ED patients; some inpatients) 06/21/2024 6:23 PM OUTPATIENT PHYSICAL THERAPIST ASSISTANT GLUCOSE POCT, B Routine 06/21/2024 5:40 PM OUTPATIENT PHYSICAL THERAPIST ASSISTANT BACTERIAL CULTURE, AEROBIC + SUSC Routine 06/21/2024 5:26 PM OUTPATIENT PHYSICAL THERAPIST ASSISTANT MC ANE INVASIVE CATHETER Routine 06/21/2024 4:24 PM OUTPATIENT PHYSICAL THERAPIST ASSISTANT DIPSTICK, U Routine 06/21/2024 3:42 PM OUTPATIENT PHYSICAL THERAPIST ASSISTANT PH, U Routine 06/21/2024 3:42 PM OUTPATIENT PHYSICAL THERAPIST ASSISTANT OSMOLALITY, U Routine 06/21/2024 3:42 PM OUTPATIENT PHYSICAL THERAPIST ASSISTANT MICROSCOPIC AUTOMATED Routine 06/21/2024 3:42 PM OUTPATIENT PHYSICAL THERAPIST ASSISTANT URINALYSIS WITH MICROSCOPIC Routine 06/21/2024 3:42 PM OUTPATIENT PHYSICAL THERAPIST ASSISTANT DX ABDOMEN PORTABLE ANTERIOR POSTERIOR 1 VIEW RAD - Routine (most inpatients and all outpatients) 06/21/2024 3:10 PM OUTPATIENT PHYSICAL THERAPIST ASSISTANT PATIENT STATUS STAT 06/21/2024 2:27 PM OUTPATIENT PHYSICAL THERAPIST ASSISTANT VENOUS BLOOD GAS W/COOX, B STAT 06/21/2024 2:27 PM OUTPATIENT PHYSICAL THERAPIST ASSISTANT BACTERIA / CHERRY CULTURE, BLOOD STAT 06/21/2024 2:27 PM OUTPATIENT PHYSICAL THERAPIST ASSISTANT GLUCOSE POCT, B Routine 06/21/2024 2:24 PM OUTPATIENT PHYSICAL THERAPIST ASSISTANT LACTATE FOR SEPSIS WITH REFLEX STAT 06/21/2024 2:14 PM OUTPATIENT PHYSICAL THERAPIST ASSISTANT CBC WITH DIFFERENTIAL, B STAT 06/21/2024 2:14 PM OUTPATIENT PHYSICAL THERAPIST ASSISTANT BASIC METABOLIC PANEL, S/P STAT 06/21/2024 2:14 PM OUTPATIENT PHYSICAL THERAPIST ASSISTANT BACTERIA / CHERRY CULTURE, BLOOD STAT 06/21/2024 2:14 PM OUTPATIENT PHYSICAL THERAPIST ASSISTANT MECHANICAL VENTILATOR Routine 06/21/2024 1:41 PM OUTPATIENT PHYSICAL THERAPIST ASSISTANT MECHANICAL VENTILATOR Routine 06/21/2024 1:41 PM OUTPATIENT PHYSICAL THERAPIST ASSISTANT MECHANICAL VENTILATOR Routine 06/21/2024 1:41 PM OUTPATIENT PHYSICAL THERAPIST ASSISTANT MECHANICAL VENTILATOR Routine 06/21/2024 1:41 PM OUTPATIENT PHYSICAL THERAPIST ASSISTANT MECHANICAL VENTILATOR Routine 06/21/2024 1:41 PM OUTPATIENT PHYSICAL THERAPIST ASSISTANT MECHANICAL VENTILATOR Routine 06/21/2024 1:41 PM OUTPATIENT PHYSICAL THERAPIST ASSISTANT MECHANICAL VENTILATOR Routine 06/21/2024 1:41 PM OUTPATIENT PHYSICAL THERAPIST ASSISTANT OUTSIDE CT NEURO Routine 06/21/2024 9:40 AM OUTPATIENT PHYSICAL THERAPIST ASSISTANT OUTSIDE CT NEURO Routine 06/20/2024 5:15 PM OUTPATIENT PHYSICAL THERAPIST ASSISTANT C-REACTIVE PROTEIN (CRP), S/P Routine 06/20/2024 10:42 AM OUTPATIENT PHYSICAL THERAPIST ASSISTANT Parotitis CBC WITH DIFFERENTIAL, B Routine 06/20/2024 10:42 AM OUTPATIENT PHYSICAL THERAPIST ASSISTANT Parotitis MUMPS VIRUS PCR, BUCCAL Routine 06/20/2024 10:32 AM OUTPATIENT PHYSICAL THERAPIST ASSISTANT Parotitis BASIC METABOLIC PANEL, S/P Routine 06/14/2024 9:31 AM OUTPATIENT PHYSICAL THERAPIST ASSISTANT Diabetes Mellitus Type 2 With Diabetic Polyneuropathy (HCC) ALBUMIN, RANDOM, U Routine 06/14/2024 9: 30 AM OUTPATIENT PHYSICAL THERAPIST ASSISTANT Chronic Kidney Disease (CKD), Stage 3b Glomerular Filtration Rate (GFR) 30 To 44 (HCC) PHOSPHORUS (INORGANIC), S Routine 06/07/2024 8:02 AM OUTPATIENT PHYSICAL THERAPIST ASSISTANT Chronic Kidney Disease (CKD), Stage 3b Glomerular Filtration Rate (GFR) 30 To 44 (HCC) VITAMIN D, IMMUNOASSAY, TOTAL, S Routine 06/07/2024 8:02 AM OUTPATIENT PHYSICAL THERAPIST ASSISTANT Chronic Kidney Disease (CKD), Stage 3b Glomerular Filtration Rate (GFR) 30 To 44 (HCC) PARATHYROID HORMONE (PTH), S Routine 06/07/2024 8:02 AM OUTPATIENT PHYSICAL THERAPIST ASSISTANT Chronic Kidney Disease (CKD), Stage 3b Glomerular Filtration Rate (GFR) 30 To 44 (HCC) CBC WITH DIFFERENTIAL, B Routine 06/07/2024 8:02 AM OUTPATIENT PHYSICAL THERAPIST ASSISTANT Chronic Kidney Disease (CKD), Stage 3b Glomerular Filtration Rate (GFR) 30 To 44 (HCC) LIPID PANEL, S Routine 06/07/2024 8:02 AM OUTPATIENT PHYSICAL THERAPIST ASSISTANT Diabetes Mellitus Type 2 With Diabetic Polyneuropathy (HCC) BASIC METABOLIC PANEL, S/P Routine 06/07/2024 8:02 AM OUTPATIENT PHYSICAL THERAPIST ASSISTANT Chronic Kidney Disease (CKD), Stage 3b Glomerular Filtration Rate (GFR) 30 To 44 (HCC) HEMOGLOBIN A1C, B Routine 06/07/2024 8:0 2 AM OUTPATIENT PHYSICAL THERAPIST ASSISTANT Diabetes Mellitus Type 2 With Diabetic Polyneuropathy (HCC) ALBUMIN, RANDOM, U Routine 06/07/2024 8: 00 AM OUTPATIENT PHYSICAL THERAPIST ASSISTANT Diabetes Mellitus Type 2 With Diabetic Polyneuropathy (HCC) BI BREAST SCREENING BILATERAL WITH TOMOSYNTHESIS RAD - Routine (most inpatients and all outpatients) 03/26/2023 1:09 PM CDT Screening Mammogram Breast Cancer from Last 3 Months or Most Recently Relevant to Health Maintenance Results * Glucose, POCT (08/15/2024 7:57 AM CDT) Only the most recent of30 resultswithin the time period is included. Glucose, POCT, B 136 70 - 140 mg/dL 08/15/2024 8:01 AM CDT PCLX Site Capillary 08/15/2024 8:01 AM CDT PCLX Blood 08/15/2024 7:57 AM CDT 08/15/2024 8:02 AM CDT us Unknown Provider LAB POCT ORDERABLES-MANUAL Marina l Result POC [facility] [address] [place] [address], [facility] PCLX [facility] POC [address] [place] [address] * CT Head without IV Contrast (08/14/2024 12:44 PM CDT) Only the most recent of2 resultswithin the time period is included. Anatomical Region Laterality Modality Head, Neuroradiology RST LOS , Neuroradiology ARZ [facility], Neuroradiology FLA LOS N/A Computed Tomography, Compute d Tomography 08/14/2024 12:5 1 PM CDT Impressions 08/14/2024 1:23 PM CDT 1. Interval operative changes of right parietal approach ventriculoperitoneal shunt placement for treatment of NPH as detailed in the findings section. 2. Ventriculomegaly of the lateral and third ventricles is unchanged since 06/21/2024. 3. Partial resolution of previously seen findings of right parotitis. Narrative 08/14/2024 1:23 PM CDT EXAM: CT HEAD WITHOUT IV CONTRAST COMPARISON: Head CT 06/21/2024. FINDINGS: Interval operative changes of ventriculoperitoneal shunt placement for treatment of normal pressure hydrocephalus. A ventricular shunt tube enters the calvarium by means of a right inferior parietal torin hole, traverses the right occipital lobe, enters the atrium of the right lateral ventricle and has its tip located along the septum pellucidum at the level of the ventricular bodies. Ventriculomegaly of the lateral and third ventricles is unchanged. A small amount of postprocedural air is noted in the anterior horn of the right lateral ventricle. Outside the skull, there is a shunt valve with tubing extending inferiorly within the right side of the neck. There is associated post procedural subcutaneous emphysema. [id number] cerebral leukoaraiosis. Moderate generalized cerebral volume loss with widening of the sylvian fissures. Intracranial vascular calcifications. No evidence of intracranial hemorrhage mass lesions or CT evidence of acute cerebral ischemia. Bilateral ocular lens implants. Mild ethmoid sinus mucosal thickening. Since 06/21/2024, there has been partial reduction in findings of previously seen right parotitis. The right parotid gland is substantially smaller and previously seen high attenuation has partially resolved. Procedure Note Malvin Suarez M.D. - 08/14/2024 EXAM: CT HEAD WITHOUT IV CONTRAST COMPARISON: Head CT 06/21/2024. FINDINGS: Interval operative changes of ventriculoperitoneal shunt placement fortreatment of normal pressure hydrocephalus. A ventricular shunt tubeenters the calvarium by means of a right inferior parietal torin hole,traverses the right occipital lobe, enters the atrium of the right lateral ventricle and has its tip located alongthe septum pellucidum at the level of the ventricular bodies. Ventriculomegaly of the lateral and third ventricles is unchanged. A smallamount of postprocedural air is noted in the anterior horn of the rightlateral ventricle. Outside the skull, there is a shunt valve with tubing extending inferiorlywithin the right side of the neck. There is associated post proceduralsubcutaneous emphysema. [id number] cerebral leukoaraiosis. Moderate generalized cerebralvolume loss with widening of the sylvian fissures. Intracranial vascularcalcifications. No evidence of intracranial hemorrhage mass lesions or CT evidence ofacute cerebral ischemia. Bilateral ocular lens implants. Mild ethmoid sinus mucosal thickening. Since 06/21/2024, there has been partial reduction in findings ofpreviously seen right parotitis. The right parotid gland is substantiallysmaller and previously seen high attenuation has partially resolved. IMPRESSION: 1. Interval operative changes of right parietal approachventriculoperitoneal shunt placement for treatment of NPH as detailed inthe findings section. 2. Ventriculomegaly of the lateral and third ventricles is unchanged since06/21/2024. 3. Partial resolution of previously seen findings of right parotitis. us Aleksandra Peraza M.D. IMG CT PROCEDURES Final Result * DX Adult PHOTOGRAMMETRIC TECH Shunt Series (08/14/2024 12:24 PM CDT) Anatomical Region Laterality Modality Head, Chest, Abdomen, Neuror adiology RST LOS, Neuroradiology ARZ LOS, Muskuloskeletal FLA LOS N/A Digita l Radiography Impressions 08/14/2024 12:51 PM CDT Right posterior parietal approach Codman Certas plus programmable PHOTOGRAMMETRIC TECH shunt. Tubing courses along the right neck and hemithorax before terminating within the right upper quadrant of the abdomen. No focal discontinuity. No acute findings within the visualized chest and abdomen. Multiple chronic right rib fractures. Multilevel spondylitic changes throughout the spine. Narrative 08/14/2024 12:51 PM CDT EXAM: DX ADULT PHOTOGRAMMETRIC TECH SHUNT SERIES Procedure Note Cole Walker D.O. - 08/14/2024 EXAM: DX ADULT PHOTOGRAMMETRIC TECH SHUNT SERIES IMPRESSION: Right posterior parietal approach Codman Certas plus programmable VPshunt. Tubing courses along the right neck and hemithorax beforeterminating within the right upper quadrant of the abdomen. No focaldiscontinuity. No acute findings within the visualized chest and abdomen. Multiple chronic right ribfractures. Multilevel spondylitic changes throughout the spine. Yvonne Haider M.D. IMG DIAGNOSTIC IMAGING PROC EDURES Final Result * Airway (08/14/2024 8:28 AM CDT) Narrative Imelda Yoon M.D. - 08/14/2024 8:28 AM CDT Imelda Yoon M.D. 08/14/2024 9:02 AM Airway Date/Time: 08/14/2024 8:28 AM Performed by: Suzie Portillo Authorized by: Agatha Chandler M.D. Patient location during procedure: OR / Procedure Area PROCEDURE DETAILS: Mask difficulty assessment: oral/nasal airway needed Final airway type: video laryngoscope Laryngeal Manipulation: no Final best view of glottic structures - Cormack/Lehane Score: grade 2A ETT location: oral VL device: glide scope [place] scope blade size: 3 Tube size: 7 ETT distance at teeth/gum: 22 Oral tube type: standard ETT Cuffed: yes Number of attempt to successful placement: 1 Airway confirmation: bilateral breath sounds, positive ETCO2 and bilateral chest rise Other previous techniques attempted: none PRE PROCEDURE DETAILS: Pre evaluation for airway management: procedure Urgency: elective Preoxygenation: bag valve mask SEDATION / ANESTHESIA Anesthesia method: anesthesia POST PROCEDURE DETAILS: Procedure outcome: successful Notable Events: no complications us Agatha Chandler M.D. ANESTHESIA ORDERABLES Final Result * CT Stereotactic Localization (08/14/2024 7:33 AM CDT) Anatomical Region Laterality Modality Head, Neuroradiology RST LOS , Neuroradiology ARZ LOS, Neuroradiology FLA LOS N/A Computed Tomography, Compute d Tomography Impressions 08/14/2024 8:30 AM CDT 1. Imaging obtained for preoperative planning purposes. 2. No acute intracranial findings. Similar prominent ventricular caliber. 3. Persistently increased heterogeneous attenuation within the right parotid gland, possibly fibrotic tissue in the setting of prior infection. Narrative 08/14/2024 8:30 AM CDT EXAM: CT STEREOTACTIC LOCALIZATION COMPARISON: Head CT 06/21/2024 FINDINGS: Imaging obtained for presurgical planning. No acute loss of clay-white matter differentiation. No acute intracranial hemorrhage or extra-axial collection. Prominent ventricular caliber is unchanged from prior. Intracranial vascular calcification. Paranasal sinuses and mastoid air cells are well aerated. Resolved inflammatory stranding within the subcutaneous soft tissues of the face. Persistent asymmetrically increased heterogeneous attenuation of the right parotid gland. No discrete or drainable collection. Cervical spondylosis with degenerative narrowing of the atlantodental articulation and large anterior flowing osteophytes. Ankylosis of C2-C5. Procedure Note Wilber Mustafa M.D. - 08/14/2024 EXAM: CT STEREOTACTIC LOCALIZATION COMPARISON: Head CT 06/21/2024 FINDINGS: Imaging obtained for presurgical planning. No acute loss of clay-white matter differentiation. No acute intracranialhemorrhage or extra-axial collection. Prominent ventricular caliber isunchanged from prior. Intracranial vascular calcification. Paranasal sinuses and mastoid aircells are well aerated. Resolved inflammatory stranding within thesubcutaneous soft tissues of the face. Persistent asymmetrically increasedheterogeneous attenuation of the right parotid gland. No discrete or drainable collection. Cervical spondylosiswith degenerative narrowing of the atlantodental articulation and largeanterior flowing osteophytes. Ankylosis of C2-C5. IMPRESSION: 1. Imaging obtained for preoperative planning purposes. 2. No acute intracranial findings. Similar prominent ventricularcaliber. 3. Persistently increased heterogeneous attenuation within the rightparotid gland, possibly fibrotic tissue in the setting of priorinfection. Agustin Granda M.D., Ph.D. IMG CT PROCEDURES F inal Result * Neurology gait disorders lab-Neurology Image Exam (08/09/2024 2:05 PM CDT) 08/09/2024 2:01 PM CDT Narrative IIMS - 08/09/2024 2:11 PM CDT This order has been created and auto-finalized to support the import of images acquired without order. The clinical documentation to support these images can be found on the encounter that produced images. Provider Not In System IMG NON RAD IMAGING PROCE DURES Final Result [facility] NA * NEUROLOGY GAIT DISORDERS LABORATORY (08/09/2024 2:00 PM CDT) Narrative Ricardo Nayak M.D. - 08/09/2024 2:00 PM CDT Ricardo Nayak M.D. 08/09/2024 3:02 PM Neurological Gait Disorders Laboratory Hydrocephalus Performed by: Ricardo Nayak M.D. Authorized by: Agustin Granda M.D., Ph.D. Agustin Granda M.D., Ph.D. NEUROLOGY ORDERABLE S Final Result * Type and Screen (with Reflex Antibody ID) (08/08/2024 10:02 AM CDT) ABORh B Pos Not applicable 08/09/2024 8:22 AM CDT ETRM Antibody Screen Negative Negative 08/09/2024 8:35 AM CDT ETRM Type & Screen Expiration 08/11/2024 23:59 08/09/2024 8:22 AM CDT ETRM Testing Location [place] DEFAULT 08/09/2024 7:30 AM CDT ETRM Blood (Blood, Venous) 08/08/2024 10:02 AM CDT 08/09/2024 7:30 AM CDT us Agustin Granda M.D., Ph.D. LAB BLOOD BANK TEST ORDERABLES Final Result [facility] [address] [place] [address], [facility] ETRM [facility] [address] [place] [address] * (ABNORMAL) Basic Metabolic Panel (08/08/2024 10:02 AM CDT) Only the most recent of8 resultswithin the time period is included. Pathologist [facility] Potassium, P 4.7 3.6 - 5.2 mmol/L 08/08/2024 1:47 PM CDT OWAT Sodium, P 141 135 - 145 mmol/L 08/08/2024 1:47 PM CDT OWAT Chloride, P 101 98 - 107 mmol/L 08/08/2024 1:47 PM CDT OWAT Bicarbonate, P 28 22 - 29 mmol/L 08/08/2024 1:47 PM CDT OWAT Anion Gap, P 12 7 - 15 08/08/2024 1:47 PM CDT OWAT BUN (Blood Urea Nitrogen), P 25(H) 6 - 21 mg/dL 08/08/2024 1:47 PM CDT OWAT Creatinine 1.53(H) 0.59 - 1.04 mg/dL 08/08/2024 1:47 PM CDT OWAT Estimated GFR (eGFR) 36(L) >=60 mL/min/BSA 08/08/2024 1:47 PM CDT OWAT Comment: Estimated GFR calculated using the 2020 CKD_EPI creatinine equation. Calcium, Total, P 9.2 8.8 - 10.2 mg/dL 08/08/2024 1:47 PM CDT OWAT Glucose, P 123 70 - 140 mg/dL 08/08/2024 1:47 PM CDT OWAT Blood (Blood, Venous) 08/08/2024 10:02 AM CDT 08/08/2024 1:10 PM CDT us Laly LAKHANI, P.A.-C. LAB BLOOD ADD-ON Final Result Performing Organization Address City/[facility] Co de Phone Number [facility] [address] [place] [address], [place] OWAT [facility] [place] [address] [place] [address] * CT SOFT TISSUE NECK W CON-Outside CT Neuro (07/17/2024 2:15 PM OUTPATIENT PHYSICAL THERAPIST ASSISTANT) Only the most recent of3 resultswithin the time period is included. Narrative IIMS - 08/01/2024 12:40 PM OUTPATIENT PHYSICAL THERAPIST ASSISTANT This order has been created and auto-finalized to support the import of outside images. If available, original interpretation can be found on the Media Tab in Chart Review, in Document Viewer, as an image in InfinityView or as an Addendum. If a re-interpretation or overread is required please follow defined workflow. us Provider Not In System IMG CT PROCEDURES Final R esult Performing Organization Address City[facility] Co de Phone Number [facility] NA * (ABNORMAL) CBC with Differential, Blood (07/05/2024 10:51 AM OUTPATIENT PHYSICAL THERAPIST ASSISTANT) Only the most recent of8 resultswithin the time period is included. Hemoglobin 12.4 11.6 - 15.0 g/dL 07/05/2024 10:55 AM OUTPATIENT PHYSICAL THERAPIST ASSISTANT FB60 Hematocrit 37.3 35.5 - 44.9 % 07/05/2024 10:55 AM OUTPATIENT PHYSICAL THERAPIST ASSISTANT FB60 Erythrocytes 4.12 3.92 - 5.13 x10(12)/L 07/05/2024 10:55 AM OUTPATIENT PHYSICAL THERAPIST ASSISTANT FB60 MCV 90.5 78.2 - 97.9 fL 07/05/2024 10:55 AM OUTPATIENT PHYSICAL THERAPIST ASSISTANT FB60 RBC Distrib Width 13.0 12.2 - 16.1 % 07/05/2024 10:55 AM OUTPATIENT PHYSICAL THERAPIST ASSISTANT FB60 Platelet Count 349 157 - 371 x10(9)/L 07/05/2024 10:55 AM OUTPATIENT PHYSICAL THERAPIST ASSISTANT FB60 Leukocytes 9.8(H) 3.4 - 9.6 x10(9)/L 07/05/2024 10:55 AM OUTPATIENT PHYSICAL THERAPIST ASSISTANT FB60 Neutrophils 6.07 1.56 - 6.45 x10(9)/L 07/05/2024 10:55 AM OUTPATIENT PHYSICAL THERAPIST ASSISTANT FB60 Lymphocytes 2.67 0.95 - 3.07 x10(9)/L 07/05/2024 10:55 AM OUTPATIENT PHYSICAL THERAPIST ASSISTANT FB60 Monocytes 0.77 0.26 - 0.81 x10(9)/L 07/05/2024 10:55 AM OUTPATIENT PHYSICAL THERAPIST ASSISTANT FB60 Eosinophils 0.23 0.03 - 0.48 x10(9)/L 07/05/2024 10:55 AM OUTPATIENT PHYSICAL THERAPIST ASSISTANT FB60 Basophils 0.05 0.01 - 0.08 x10(9)/L 07/05/2024 10:55 AM OUTPATIENT PHYSICAL THERAPIST ASSISTANT FB60 Blood (Blood, Venous) 07/05/2024 10:51 AM OUTPATIENT PHYSICAL THERAPIST ASSISTANT 07/05/2024 10:51 AM OUTPATIENT PHYSICAL THERAPIST ASSISTANT us Laly LAKHANI, P.A.-C. LAB BLOOD ADD-ON Final Result [facility] [address] [place] [address], [facility] FB60 [facility] [place] [address] [place] [address] * CRP (C-Reactive Protein) (07/05/2024 10:51 AM OUTPATIENT PHYSICAL THERAPIST ASSISTANT) Only the most recent of2 resultswithin the time period is included. C-Reactive Protein (CRP), P <3.0 <5.0 mg/L 07/05/2024 1:56 PM OUTPATIENT PHYSICAL THERAPIST ASSISTANT OWAT Blood (Blood, Venous) 07/05/2024 10:51 AM OUTPATIENT PHYSICAL THERAPIST ASSISTANT 07/05/2024 1:09 PM OUTPATIENT PHYSICAL THERAPIST ASSISTANT us Laly Deajigar LAKHANI P.A.-C. LAB BLOOD ADD-ON Final Result Performing Organization Address City[facility] Co de Phone Number [facility] [address] [place] [address], [place] OW[place] [facility] [place] [address] [place] [address] * ECG 12 Lead (06/24/2024 11:24 AM OUTPATIENT PHYSICAL THERAPIST ASSISTANT) Ventricular Rate ECG/Min 83 BPM MUSE NC Interval 102 ms MUSE QRSD Interval 116 ms MUSE QT Interval 356 ms MUSE QTC Interval 418 ms MUSE P [place] 11 degrees MUSE R [place] 7 degrees MUSE T Wave [place] 13 degrees MUSE 06/24/2024 11:2 4 AM OUTPATIENT PHYSICAL THERAPIST ASSISTANT 06/25/2024 1:57 PM OUTPATIENT PHYSICAL THERAPIST ASSISTANT Impressions MUSE - 06/24/2024 11:43 AM OUTPATIENT PHYSICAL THERAPIST ASSISTANT Sinus rhythm with short NC Non-specific intra-ventricular conduction delay T wave abnormality, consider anterolateral ischemia No previous ECGs available Reviewed by MARCELLE Cox Narrative Procedure Note Lamberto Beasley M.D. - 06/25/2024 IMPRESSION: Sinus rhythm with short NC Non-specific intra-ventricular conduction delay T wave abnormality, consider anterolateral ischemia No previous ECGs available Reviewed by MARCELLE Cox us Shruthi Shelby P.A.-C. ECG ORDERABLES Edited Result - Final MUSE NA * Potassium (06/23/2024 7:07 AM OUTPATIENT PHYSICAL THERAPIST ASSISTANT) Potassium, S 4.2 3.6 - 5.2 mmol/L 06/23/2024 8:01 AM OUTPATIENT PHYSICAL THERAPIST ASSISTANT DTL Blood 06/23/2024 7:07 AM OUTPATIENT PHYSICAL THERAPIST ASSISTANT 06/23/2024 7:49 AM OUTPATIENT PHYSICAL THERAPIST ASSISTANT us Nik Elam M.D., M.B.A. LAB BLOOD ADD-ON Fi nal Result Performing Organization Address City/[facility]/ZIP Co de Phone Number [facility] [address] [place] [address] * Vancomycin, Trough (06/23/2024 4:55 AM OUTPATIENT PHYSICAL THERAPIST ASSISTANT) Vancomycin, Trough, S 19.1 10.0 - 20.0 mcg/mL 06/23/2024 7:46 AM OUTPATIENT PHYSICAL THERAPIST ASSISTANT DTL Blood (Blood, Venous) 06/23/2024 4:55 AM OUTPATIENT PHYSICAL THERAPIST ASSISTANT 06/23/2024 5:19 AM OUTPATIENT PHYSICAL THERAPIST ASSISTANT Skyler Bunn M.D. LAB BLOOD NON ADD-ON Final Re sult Performing Organization Address [facility] Co de Phone Number [facility] [address] [place] [address] * Staph aureus / MRSA, Nasal, PCR (06/22/2024 7:46 AM OUTPATIENT PHYSICAL THERAPIST ASSISTANT) Staphylococcus aureus, PCR Negative Negative 06/22/2024 11:54 AM OUTPATIENT PHYSICAL THERAPIST ASSISTANT DTL MRSA, PCR Negative Negative 06/22/2024 11:54 AM OUTPATIENT PHYSICAL THERAPIST ASSISTANT DTL Swab (Nares) 06/22/2024 7:46 AM OUTPATIENT PHYSICAL THERAPIST ASSISTANT 06/22/2024 10:06 AM OUTPATIENT PHYSICAL THERAPIST ASSISTANT Nik Elam M.D., M.B.A. LAB MICROBIOLOGY - GENERAL ORDERABLES Final Result Performing Organization Address City/[facility]/ZIP Co de Phone Number [facility] [address] [place] [address] * Patient Status (06/22/2024 4:29 AM OUTPATIENT PHYSICAL THERAPIST ASSISTANT) FIO2 0.40 0.21=AIR 06/22/2024 4:3 4 AM OUTPATIENT PHYSICAL THERAPIST ASSISTANT STMA Device Vent 06/22/2024 4:3 4 AM OUTPATIENT PHYSICAL THERAPIST ASSISTANT STMA Blood 06/22/2024 4:29 AM OUTPATIENT PHYSICAL THERAPIST ASSISTANT 06/22/2024 4:34 AM OUTPATIENT PHYSICAL THERAPIST ASSISTANT Nik Elam M.D., M.B.A. LAB BLOOD NON ADD-O N Final Result [facility] [address] [place] [address], [facility] STMA [facility] [address] [place] [address] * (ABNORMAL) Blood Gas with Coox, Arterial (06/22/2024 4:29 AM OUTPATIENT PHYSICAL THERAPIST ASSISTANT) pO2 105 83 - 108 mm Hg 06/22/2024 4:36 AM OUTPATIENT PHYSICAL THERAPIST ASSISTANT STMA pCO2 43 32 - 45 mm Hg 06/22/2024 4:36 AM OUTPATIENT PHYSICAL THERAPIST ASSISTANT STMA pH 7.38 7.35 - 7.45 pH 06/22/2024 4:36 AM OUTPATIENT PHYSICAL THERAPIST ASSISTANT STMA Base Excess 1 -2 - 3 mmol/L 06/22/2024 4:36 AM OUTPATIENT PHYSICAL THERAPIST ASSISTANT STMA HCO3 26 22 - 26 mmol/L 06/22/2024 4:36 AM OUTPATIENT PHYSICAL THERAPIST ASSISTANT STMA Hemoglobin, B 10.6(L) 11.6 - 15.0 g/dL 06/22/2024 4:36 AM OUTPATIENT PHYSICAL THERAPIST ASSISTANT STMA O2Hb 97.9 94.0 - 98.0 % 06/22/2024 4:36 AM OUTPATIENT PHYSICAL THERAPIST ASSISTANT STMA COHb 2.0 <3.0 % 06/22/2024 4:36 AM OUTPATIENT PHYSICAL THERAPIST ASSISTANT STMA MetHb <1.0 <1.5 % 06/22/2024 4:36 AM OUTPATIENT PHYSICAL THERAPIST ASSISTANT STMA CtO2 14.8(L) 18.0 - 21.0 vol % 06/22/2024 4:36 AM OUTPATIENT PHYSICAL THERAPIST ASSISTANT STMA Arterial Sample Site Art Line 06/22/2024 4:34 AM OUTPATIENT PHYSICAL THERAPIST ASSISTANT STMA Comment:Alistair's test not don e. Blood (Blood, Arterial) 06/22/2024 4:29 AM OUTPATIENT PHYSICAL THERAPIST ASSISTANT 06/22/2024 4:34 AM OUTPATIENT PHYSICAL THERAPIST ASSISTANT us Nik Elam M.D., M.B.A. LAB BLOOD NON ADD-O N Final Result Performing Organization Address [facility] Co de Phone Number [facility] [address] [place] [address], [facility] [place] [address] * (ABNORMAL) Cystatin C with Estimated GFR (06/22/2024 4:28 AM OUTPATIENT PHYSICAL THERAPIST ASSISTANT) Pathologist [facility] eGFR by Cystatin C 29(L) >60 mL/min/BSA 06/22/2024 5:30 AM OUTPATIENT PHYSICAL THERAPIST ASSISTANT DTL Comment: Estimated GFR calculated using the CKD-EPI Cystatin C (2012) equation. ----ADDITIONAL INFORMATION---- Cystatin C-based eGFR may differ substantially from creatinine- based eGFR in patients with abnormal muscle mass or acutely changing renal function. Please interpret together with relevant clinical features. On 10/24/2020 the cystatin C assay method changed. Cystatin C eGFR results > 50 ml/min/1.73m2 are approximately 10% lower with the new assay. Cystatin C 1.95(H) 0.67 - 1.21 mg/L 06/22/2024 5:30 AM OUTPATIENT PHYSICAL THERAPIST ASSISTANT DTL Blood (Blood, Venous) 06/22/2024 4:28 AM OUTPATIENT PHYSICAL THERAPIST ASSISTANT 06/22/2024 5:09 AM OUTPATIENT PHYSICAL THERAPIST ASSISTANT us Skyler Bunn M.D. LAB BLOOD ADD-ON Final Result Performing Organization Address City/[facility]/ZIP Co de Phone Number [facility] [address] [place] [address], [facility] [address] [place] [address] * Phosphorus Inorganic (06/22/2024 4:24 AM OUTPATIENT PHYSICAL THERAPIST ASSISTANT) Only the most recent of2 resultswithin the time period is included. Phosphorus (Inorganic), S 4.4 2.5 - 4.5 mg/dL 06/22/2024 10:16 AM OUTPATIENT PHYSICAL THERAPIST ASSISTANT DTL Blood (Blood, Venous) 06/22/2024 4:24 AM OUTPATIENT PHYSICAL THERAPIST ASSISTANT 06/22/2024 9:50 AM OUTPATIENT PHYSICAL THERAPIST ASSISTANT us Darion Gaxiola M.D. LAB BLOOD ADD-ON Final Resu lt Performing Organization Address City[facility]/ZIP Co de Phone Number [facility] [address] [place] [address], [facility] [address] [place] [address] * Magnesium (06/22/2024 4:24 AM OUTPATIENT PHYSICAL THERAPIST ASSISTANT) Magnesium, S 1.9 1.7 - 2.3 mg/dL 06/22/2024 10:16 AM OUTPATIENT PHYSICAL THERAPIST ASSISTANT DTL Blood 06/22/2024 4:24 AM OUTPATIENT PHYSICAL THERAPIST ASSISTANT 06/22/2024 9:50 AM OUTPATIENT PHYSICAL THERAPIST ASSISTANT Darion Gaxiola M.D. LAB BLOOD ADD-ON Final Resu lt Performing Organization Address [facility] Co de Phone Number [facility] [address] [place] [address], [facility] [address] [place] [address] * Bacterial Culture, Aerobic + Susceptibility, Respiratory (06/21/2024 10:35 PM OUTPATIENT PHYSICAL THERAPIST ASSISTANT) Bacterial Culture, Aerobic, Resp No growth after 2 days of incubation. 06/24/2024 7:20 AM OUTPATIENT PHYSICAL THERAPIST ASSISTANT DTL Sputum (Sputum) 06/21/2024 1 0:35 PM OUTPATIENT PHYSICAL THERAPIST ASSISTANT 06/21/2024 10:35 PM OUTPATIENT PHYSICAL THERAPIST ASSISTANT Comment:Specimen Source Site : Sputum Narrative [facility] - 06/24/2024 7:20 AM OUTPATIENT PHYSICAL THERAPIST ASSISTANT Fungal and Mycobacteria specimens plated for culture, volume inadequate for optimal recovery. us Maria M Welch P.A.-C. LAB MICROBIOLOGY - GEN ERAL ORDERABLES Final Result Performing Organization Address [facility]/ZIP Co de Phone Number [facility] [address] [place] [address], [facility] [address] [place] [address] * Mycobacterial Culture (06/21/2024 10:35 PM OUTPATIENT PHYSICAL THERAPIST ASSISTANT) Mycobacterial Culture No growth after 42 days of incubation . 08/03/2024 1:02 AM OUTPATIENT PHYSICAL THERAPIST ASSISTANT DTL Sputum (Sputum) 06/21/2024 1 0:35 PM OUTPATIENT PHYSICAL THERAPIST ASSISTANT 06/21/2024 10:35 PM OUTPATIENT PHYSICAL THERAPIST ASSISTANT Comment:Specimen Source Site : Sputum Narrative [facility] - 08/03/2024 1:02 AM OUTPATIENT PHYSICAL THERAPIST ASSISTANT Fungal and Mycobacteria specimens plated for culture, volume inadequate for optimal recovery. Maria M aTCKavya LAB MICROBIOLOGY - GEN ERAL ORDERABLES Final Result [facility] [address] [place] [address], [facility] [address] [place] [address] * Fungal Smear (06/21/2024 10:35 PM OUTPATIENT PHYSICAL THERAPIST ASSISTANT) Fungal Smear Negative. 06/22/2024 8:22 AM OUTPATIENT PHYSICAL THERAPIST ASSISTANT DTL Sputum (Sputum) 06/21/2024 1 0:35 PM OUTPATIENT PHYSICAL THERAPIST ASSISTANT 06/21/2024 10:35 PM OUTPATIENT PHYSICAL THERAPIST ASSISTANT Comment:Specimen Source Site : Sputum Narrative [facility] - 06/22/2024 8:22 AM OUTPATIENT PHYSICAL THERAPIST ASSISTANT Fungal and Mycobacteria specimens plated for culture, volume inadequate for optimal recovery. Maria M TaC. LAB MICROBIOLOGY - GEN ERAL ORDERABLES Final Result [facility] [address] [place] [address], [facility] [address] [place] [address] * Acid Fast Smear for Mycobacterium (06/21/2024 10:35 PM OUTPATIENT PHYSICAL THERAPIST ASSISTANT) Acid Fast Smear For Mycobacterium Negative. 06/22/2024 5:44 AM OUTPATIENT PHYSICAL THERAPIST ASSISTANT DTL Sputum (Sputum) 06/21/2024 1 0:35 PM OUTPATIENT PHYSICAL THERAPIST ASSISTANT 06/21/2024 10:35 PM OUTPATIENT PHYSICAL THERAPIST ASSISTANT Comment:Specimen Source Site : Sputum Narrative [facility] - 06/22/2024 5:44 AM OUTPATIENT PHYSICAL THERAPIST ASSISTANT Fungal and Mycobacteria specimens plated for culture, volume inadequate for optimal recovery. Maria M Welch P.A.-C. LAB MICROBIOLOGY - GEN ERAL ORDERABLES Final Result Performing Organization Address [facility] de Phone Number [facility] [address] [place] [address] * Gram Stain (06/21/2024 10:35 PM OUTPATIENT PHYSICAL THERAPIST ASSISTANT) Gram Stain No organisms seen. White blood cells, Many Epithelial cells, Rare 06/22/2024 1:18 AM OUTPATIENT PHYSICAL THERAPIST ASSISTANT DTL Sputum (Sputum) 06/21/2024 1 0:35 PM OUTPATIENT PHYSICAL THERAPIST ASSISTANT 06/21/2024 10:35 PM OUTPATIENT PHYSICAL THERAPIST ASSISTANT Comment:Specimen Source Site : Sputum Narrative [facility] - 06/22/2024 1:18 AM OUTPATIENT PHYSICAL THERAPIST ASSISTANT Fungal and Mycobacteria specimens plated for culture, volume inadequate for optimal recovery. Maria M Welch P.A.-C. LAB MICROBIOLOGY - GEN ERAL ORDERABLES Final Result Performing Organization Address [facility] de Phone Number [facility] [address] [place] [address] * (ABNORMAL) Fungal Culture, Routine (06/21/2024 10:35 PM OUTPATIENT PHYSICAL THERAPIST ASSISTANT) Fungal Culture, Routine ASPERGILLUS VERSICOLOR COMPLEX Few (A) 07/17/2024 3:06 PM OUTPATIENT PHYSICAL THERAPIST ASSISTANT DTL Comment: Susceptibility testing is not indicated for all molds. Not all molds are clinically significant. If the ordering clinician feels that the culture result is clinically significant, infectious disease consultation is required to order mold susceptibility testing. Sputum (Sputum) 06/21/2024 1 0:35 PM OUTPATIENT PHYSICAL THERAPIST ASSISTANT 06/21/2024 10:35 PM OUTPATIENT PHYSICAL THERAPIST ASSISTANT Comment:Specimen Source Site : Sputum Narrative [facility] - 07/17/2024 3:06 PM OUTPATIENT PHYSICAL THERAPIST ASSISTANT Fungal and Mycobacteria specimens plated for culture, volume inadequate for optimal recovery. Maria M Welch P.A.-C. LAB MICROBIOLOGY - GEN ERAL ORDERABLES Final Result [facility] [address] [place] [address], [place] [facility] [address] [place] [address] * (ABNORMAL) Bacterial Culture, Aerobic + Susceptibility (06/21/2024 5:26 PM OUTPATIENT PHYSICAL THERAPIST ASSISTANT) Bacterial Culture, Aerobic + Susc With skin microbiota(A) 06/24/2024 1:54 PM OUTPATIENT PHYSICAL THERAPIST ASSISTANT DTL Bacterial Culture, Aerobic + Susc STAPHYLOCOCCUS AUREUS 1+ (A) 06/24/2024 1:54 PM OUTPATIENT PHYSICAL THERAPIST ASSISTANT DTL Swab (Cheek, Right) 06/21/2024 5:26 PM OUTPATIENT PHYSICAL THERAPIST ASSISTANT 06/21/2024 6:39 PM OUTPATIENT PHYSICAL THERAPIST ASSISTANT Comment:Specimen Source Site : Swab Right Buccal Cheek Narrative Organism Antibiotic Method Susceptibility Staphylococcus aureus Oxacillin SUSCEPTIBI LITY, KIMBERLYN (MCG/ML) 0.5 mcg/mL: Susceptible Comment: Use oxacillin interpretation to predict results for anti-staphylococcal beta-lactam antibiotics (except ceftaroline). Staphylococcus aureus Vancomycin SUSCEPTIBI LITY, KIMBERLYN (MCG/ML) 1 mcg/mL: Susceptible Staphylococcus aureus Clindamycin SUSCEPTIBI LITY, KIMBERLYN (MCG/ML) <=0.5 mcg/mL: Susceptible Staphylococcus aureus Levofloxacin SUSCEPTIBI LITY, KIMBERLYN (MCG/ML) <=0.5 mcg/mL: Susceptible Comment: Fluoroquinolones have a limited role in treatment of staphylococcal infections; consult Infectious Diseases if considering usage. Staphylococcus aureus Trimethoprim + Sulfamethoxazole SUSCEPTIBILITY, KIMBERLYN (MCG/ML) <=0.5/9.5 mcg/mL: Susceptible Staphylococcus aureus Minocycline SUSCEPTIBI LITY, KIMBERLYN (MCG/ML) <=1 mcg/mL: Susceptible Staphylococcus aureus Rifampin SUSCEPTIBI LITY, KIMBERLYN (MCG/ML) <=0.5 mcg/mL: Susceptible Comment:Rifampin harper uld not be used as monotherapy Staphylococcus aureus Doxycycline SUSCEPTIBI LITY, KIMBERLYN (MCG/ML) <=4 mcg/mL: Susceptible Nik Elam M.D., M.B.A. LAB MICROBIOLOGY - GENERAL ORDERABLES Final Result [facility] [address] [place] [address], [facility] [address] [place] [address] * Invasive Line (06/21/2024 4:24 PM OUTPATIENT PHYSICAL THERAPIST ASSISTANT) Narrative aPrker Mcmillan R.R.T., L.R.T. - 06/21/2024 4:24 PM OUTPATIENT PHYSICAL THERAPIST ASSISTANT Parker Mcmillan R.R.T., L.R.T. 06/21/2024 4:24 PM Invasive Line Performed by: Parker Mcmillan R.R.T., L.R.T. Authorized by: Skyler Bunn M.D. Location: ICU/PCU PROCEDURE DETAILS: Line type: arterial Laterality: right Location: radial Location details: new site Age group: adult Catheter diameter: 20 Ga Technique: palpation Monitored: yes Number of attempts: 1 UNIVERSAL PROTOCOL All relevant documentation and testing were reviewed and available. All required blood products, implants, devices and or special equipment were made available as applicable. Pre-procedure verification was conducted and the correct site was marked if required. A fire risk and smoke assessment were done as applicable. The procedural time-out to verify correct patient, correct side/site, and procedure was conducted prior to performing the procedure and confirmed in a procedural pause. PRE-PROCEDURE DETAILS: Indication(s): hemodynamic monitoring Appropriate hand hygiene, gown, cap, mask, protective eyewear, sterile gloves, skin preparation, sterile drape, and strict aseptic technique were utilized as applicable for the procedure.: yes Skin preparation: chlorhexidine SEDATION / ANESTHESIA Anesthesia method: none POST-PROCEDURE DETAILS: Procedure completed successfully: yes Line secured: secured with sutureless device Chlorhexidine disc around insertion site and under catheter with slight turn: yes Notable Events - arterial: none Patient tolerance of procedure: successful Skyler Bunn M.D. PROCEDURE/MINOR SURGICAL ORDE RABLES Final Result * Dipstick, Urine (06/21/2024 3:42 PM OUTPATIENT PHYSICAL THERAPIST ASSISTANT) Hemoglobin, QL, U Negative Negative 06/21/2024 4:46 PM OUTPATIENT PHYSICAL THERAPIST ASSISTANT DTL Leukocyte Esterase, U Negative Negative 06/21/2024 4:46 PM OUTPATIENT PHYSICAL THERAPIST ASSISTANT DTL Nitrite, U Negative Negative 06/21/2024 4:46 PM OUTPATIENT PHYSICAL THERAPIST ASSISTANT DTL Ketone, U Negative Negative mg/dL 06/21/2024 4:46 PM OUTPATIENT PHYSICAL THERAPIST ASSISTANT DTL Glucose, U Negative Negative mg/dL 06/21/2024 4:46 PM OUTPATIENT PHYSICAL THERAPIST ASSISTANT DTL Urine 06/21/2024 3:42 PM OUTPATIENT PHYSICAL THERAPIST ASSISTANT 06/21/2024 4:19 PM OUTPATIENT PHYSICAL THERAPIST ASSISTANT Nik Elam M.D., M.B.A. LAB URINE ORDERABLE S Final Result Performing Organization Address [facility] Co de Phone Number [facility] [address] [facility] [address] [place] [address] * Microscopic Automated (06/21/2024 3:42 PM OUTPATIENT PHYSICAL THERAPIST ASSISTANT) Pathologist [facility] Microscopy Normal 06/21/2024 4:46 PM OUTPATIENT PHYSICAL THERAPIST ASSISTANT DTL RBC <3 <3 /hpf 06/21/2024 4:46 PM OUTPATIENT PHYSICAL THERAPIST ASSISTANT DTL WBC 1-3 /hpf 06/21/2024 4:46 PM OUTPATIENT PHYSICAL THERAPIST ASSISTANT DTL Comment: ----REFERENCE VALUE---- <4 (Males) <11 (Females) Urine 06/21/2024 3:42 PM OUTPATIENT PHYSICAL THERAPIST ASSISTANT 06/21/2024 4:19 PM OUTPATIENT PHYSICAL THERAPIST ASSISTANT Nik Elam M.D., M.B.A. LAB URINE ORDERABLE S Final Result Performing Organization Address City/[facility]/ZIP Co de Phone Number [facility] [address] [place] [address], [facility] [place] [address] * pH, Urine (06/21/2024 3:42 PM OUTPATIENT PHYSICAL THERAPIST ASSISTANT) Pathologist [facility] pH, U 4.9 4.5 - 8.0 06/21/2024 5:3 2 PM OUTPATIENT PHYSICAL THERAPIST ASSISTANT DTL Urine 06/21/2024 3:42 PM OUTPATIENT PHYSICAL THERAPIST ASSISTANT 06/21/2024 4:19 PM OUTPATIENT PHYSICAL THERAPIST ASSISTANT Nik Elam M.D., M.B.A. LAB URINE ORDERABLE S Final Result Performing Organization Address [facility]/ZIP Co de Phone Number [facility] [address] [place] [address], [facility] [address] [place] [address] * Osmolality, Urine (06/21/2024 3:42 PM OUTPATIENT PHYSICAL THERAPIST ASSISTANT) [facility] Osmolality, U 307 150 - 1150 mOsm/kg 06/21/2024 5:32 PM OUTPATIENT PHYSICAL THERAPIST ASSISTANT DT Urine 06/21/2024 3:42 PM OUTPATIENT PHYSICAL THERAPIST ASSISTANT 06/21/2024 4:19 PM OUTPATIENT PHYSICAL THERAPIST ASSISTANT Nik Elam M.D., M.B.A. LAB URINE ORDERABLE S Final Result Performing Organization Address [facility] Co de Phone Number [facility] [address] [place] [address], [facility] [address] [place] [address] * Urinalysis, with Microscopic: Urine, Catheter (06/21/2024 3:42 PM OUTPATIENT PHYSICAL THERAPIST ASSISTANT) Pathologist [facility] Source Urine, Urine, Catheter 06/21/2024 4:19 PM OUTPATIENT PHYSICAL THERAPIST ASSISTANT DTL Color, U Yellow 06/21/2024 4:19 PM OUTPATIENT PHYSICAL THERAPIST ASSISTANT DTL Clarity, U Clear 06/21/2024 4:19 PM OUTPATIENT PHYSICAL THERAPIST ASSISTANT DTL Protein, U 6 <26 mg/dL 06/21/2024 5:24 PM OUTPATIENT PHYSICAL THERAPIST ASSISTANT DTL Protein/Osmola lity 0.20 <0.42 ratio 06/21/2024 5:32 PM OUTPATIENT PHYSICAL THERAPIST ASSISTANT DTL Predicted 24 HR Protein, U 152 <229 mg/24 h 06/21/2024 5:32 PM OUTPATIENT PHYSICAL THERAPIST ASSISTANT DTL Predicted Range 38-615 mg/24 h 06/21/2024 5:32 PM OUTPATIENT PHYSICAL THERAPIST ASSISTANT DTL Urine (Urine, Catheter) 06/21/2024 3:42 PM OUTPATIENT PHYSICAL THERAPIST ASSISTANT 06/21/2024 4:19 PM OUTPATIENT PHYSICAL THERAPIST ASSISTANT Nik Elam M.D., M.B.A. LAB URINE ORDERABLE S Final Result [facility] [address] [place] [address], [facility] DTL [facility] [address] [place] [address] * DX Abdomen Portable Anterior Posterior 1 View (06/21/2024 3:10 PM OUTPATIENT PHYSICAL THERAPIST ASSISTANT) Anatomical Region Laterality Modality Abdomen, Abdominal RST LOS, Abdominal ARZ LOS, Abdominal FLA LOS N/A Digital Radiography Impressions 06/21/2024 3:28 PM OUTPATIENT PHYSICAL THERAPIST ASSISTANT NG tube with tip and sidehole projecting over the stomach. Curvilinear lucencies in the left lower abdomen have the appearance of pneumatosis intestinalis versus air outlining stool. If there is clinical concern for an intra-abdominal process, CT abdomen pelvis is recommended to further evaluate this finding. Narrative 06/21/2024 3:28 PM OUTPATIENT PHYSICAL THERAPIST ASSISTANT EXAM: DX ABDOMEN PORTABLE ANTERIOR POSTERIOR 1 VIEW Procedure Note Sandra Meadows M.D. - 06/21/2024 EXAM: DX ABDOMEN PORTABLE ANTERIOR POSTERIOR 1 VIEW IMPRESSION: NG tube with tip and sidehole projecting over the stomach. Curvilinearlucencies in the left lower abdomen have the appearance of pneumatosisintestinalis versus air outlining stool. If there is clinical concern jaxson intra-abdominal process, CT abdomen pelvis is recommended to further evaluate thisfinding. Nik Elam M.D., M.B.A. IMG DIAGNOSTIC IMAG ING PROCEDURES Final Result * Patient Status (06/21/2024 2:27 PM OUTPATIENT PHYSICAL THERAPIST ASSISTANT) FIO2 0.40 0.21=AIR 06/21/2024 2:37 PM OUTPATIENT PHYSICAL THERAPIST ASSISTANT STMA Device Vent 06/21/2024 2:37 PM OUTPATIENT PHYSICAL THERAPIST ASSISTANT STMA Spont. breaths/min 17 06/21/2024 2:37 PM OUTPATIENT PHYSICAL THERAPIST ASSISTANT STMA Blood 06/21/2024 2:27 PM OUTPATIENT PHYSICAL THERAPIST ASSISTANT 06/21/2024 2:37 PM OUTPATIENT PHYSICAL THERAPIST ASSISTANT Nik Elam M.D., M.B.A. LAB BLOOD NON ADD-O N Final Result [facility] [address] [place] [address], [facility] STMA [facility] [address] [place] [address] * Bacteria / Cherry Culture, Blood #2 (06/21/2024 2:27 PM OUTPATIENT PHYSICAL THERAPIST ASSISTANT) Only the most recent of2 resultswithin the time period is included. [facility] Bacteria/Dorothy da Culture, Blood No growth after 5 days of incubation. 06/26/2024 3:02 PM OUTPATIENT PHYSICAL THERAPIST ASSISTANT DTL Blood (Blood, Peripheral Draw) 06/21/2024 2:27 PM OUTPATIENT PHYSICAL THERAPIST ASSISTANT 06/21/2024 2:57 PM OUTPATIENT PHYSICAL THERAPIST ASSISTANT Comment:Specimen Source Site : Blood Narrative [facility] - 06/26/2024 3:02 PM OUTPATIENT PHYSICAL THERAPIST ASSISTANT Received Bactec aerobic and Bactec anaerobic bottles Nik Elam M.D., M.B.A. LAB MICROBIOLOGY - GENERAL ORDERABLES Final Result Performing Organization Address [facility] Co de Phone Number [facility] [address] [place] [address], [facility] DTL [facility] [address] [place] [address] * (ABNORMAL) Blood Gas with Coox, Venous (06/21/2024 2:27 PM OUTPATIENT PHYSICAL THERAPIST ASSISTANT) Pathologist [facility] pO2, Venous, B 56 Not applicable mm Hg 06/21/2024 2:40 PM OUTPATIENT PHYSICAL THERAPIST ASSISTANT STMA pCO2, Venous, B 45 41 - 51 mm Hg 06/21/2024 2:40 PM OUTPATIENT PHYSICAL THERAPIST ASSISTANT STMA pH, Venous, B 7.36 7.32 - 7.43 pH 025 2:40 PM OUTPATIENT PHYSICAL THERAPIST ASSISTANT STMA Base Excess, Venous, B 0 Not applicable mmol/L 06/21/2024 2:40 PM OUTPATIENT PHYSICAL THERAPIST ASSISTANT STMA HCO3, Venous, B 25 Not applicable mmol/L 06/21/2024 2:40 PM OUTPATIENT PHYSICAL THERAPIST ASSISTANT STMA Hemoglobin, Venous, B 11.2(L) 11.6 - 15.0 g/dL 06/21/2024 2:40 PM OUTPATIENT PHYSICAL THERAPIST ASSISTANT STMA O2Hb, Venous, B 88.2 Not applicable % 06/21/2024 2:40 PM OUTPATIENT PHYSICAL THERAPIST ASSISTANT STMA COHb, Venous, B 2.4 <3.0 % 06/21/2024 2:40 PM OUTPATIENT PHYSICAL THERAPIST ASSISTANT STMA MetHb, Venous, B <1.0 <1.5 % 06/21/2024 2:40 PM OUTPATIENT PHYSICAL THERAPIST ASSISTANT STMA CtO2, Venous, B 13.9 Not Applicable vol % 06/21/2024 2:40 PM OUTPATIENT PHYSICAL THERAPIST ASSISTANT STMA Sample Site, Venous, B Venipunct 06/21/2024 2:37 PM OUTPATIENT PHYSICAL THERAPIST ASSISTANT STMA Blood (Blood, Venous) 06/21/2024 2:27 PM OUTPATIENT PHYSICAL THERAPIST ASSISTANT 06/21/2024 2:37 PM OUTPATIENT PHYSICAL THERAPIST ASSISTANT Nik Elam M.D., M.B.A. LAB BLOOD NON ADD-O N Final Result Performing Organization Address [facility] Co de Phone Number [facility] [address] [place] [address], [facility] STMA [facility] [address] [place] [address] * Lactate for Sepsis with Reflex (06/21/2024 2:14 PM OUTPATIENT PHYSICAL THERAPIST ASSISTANT) Lactate, P 1.3 0.5 - 2.2 mmol/L 06/21/2024 2:52 PM OUTPATIENT PHYSICAL THERAPIST ASSISTANT STMA Blood (Blood, Venous) 06/21/2024 2:14 PM OUTPATIENT PHYSICAL THERAPIST ASSISTANT 06/21/2024 2:37 PM OUTPATIENT PHYSICAL THERAPIST ASSISTANT Nik Elam M.D., M.B.A. LAB BLOOD NON ADD-O N Final Result [facility] [address] [place], [place] [id number] [place] [address] STMA [facility] [address] [place] [address] * Mumps Virus PCR, Buccal (06/20/2024 10:32 AM OUTPATIENT PHYSICAL THERAPIST ASSISTANT) Mumps Virus PCR, Buccal Negative Negative 06/22/2024 8:41 AM OUTPATIENT PHYSICAL THERAPIST ASSISTANT DTL Comment: ----ADDITIONAL INFORMATION---- This test was developed and its performance characteristics determined by [facility] in a manner consistent with CLIA requirements. This test has not been cleared or approved by the U.S. Food and Drug Administration. Swab (Buccal Mucosa) 06/20/2024 10:32 AM OUTPATIENT PHYSICAL THERAPIST ASSISTANT 06/20/2024 10:09 PM OUTPATIENT PHYSICAL THERAPIST ASSISTANT Laly LAKHANI, P.A.-C. LAB MICROBIOLOGY - GENERAL ORDERABLES Final Result Performing Organization Address [facility] de Phone Number [facility] [address] [place], [place] [address] DT 200 [facility] 200 [place] [address] * Albumin, Random, Urine (06/14/2024 9:30 AM OUTPATIENT PHYSICAL THERAPIST ASSISTANT) Only the most recent of2 resultswithin the time period is included. Pathologist [facility] Microalbumin <12.0 mg/L 06/14/2024 2:02 PM OUTPATIENT PHYSICAL THERAPIST ASSISTANT OWAT Comment:If clinically indica jim, contact the lab for additional testing. Creatinine 56 mg/dL 06/14/2024 2:02 PM OUTPATIENT PHYSICAL THERAPIST ASSISTANT OWAT Albumin/Creatinine Ratio <21 <25 mg/g 06/14/2024 2:02 PM OUTPATIENT PHYSICAL THERAPIST ASSISTANT OW[place] Comment: This ratio may not correspond with the reference range because one or both of the values used to calculate the ratio was above or below the quantification limits. Urine (Urine, Midstream) 06/14/2024 9:30 AM OUTPATIENT PHYSICAL THERAPIST ASSISTANT 06/14/2024 1:05 PM OUTPATIENT PHYSICAL THERAPIST ASSISTANT Laly LAKHANI, P.A.-C. LAB URINE ORDERAB LES Final Result [facility] [address] [place] [address], [facility] OWAT [facility] [place] [address] [place] [address] * (ABNORMAL) Lipid Panel (06/07/2024 8:02 AM OUTPATIENT PHYSICAL THERAPIST ASSISTANT) Triglycerides 246(H) mg/dL 06/07/2024 4:47 PM OUTPATIENT PHYSICAL THERAPIST ASSISTANT OWAT Comment: ----REFERENCE VALUE---- Normal: <150 mg/dL Borderline High: 150-199 mg/dL High: 200-499 mg/dL Very High: > or =500 mg/dL Cholesterol, Total 326(H) mg/dL 2024 4:47 PM OUTPATIENT PHYSICAL THERAPIST ASSISTANT OWAT Comment: ----REFERENCE VALUE---- Desirable: < 200 mg/dL Borderline High: 200 - 239 mg/dL High: > or = 240 mg/dL Cholesterol, LDL, Calculated 232(H) mg/dL 06/07/2024 4:47 PM OUTPATIENT PHYSICAL THERAPIST ASSISTANT OWAT Comment: The markedly elevated LDL level [...] HDL 44(L) >=50 mg/dL 06/07/2024 4:47 PM OUTPATIENT PHYSICAL THERAPIST ASSISTANT OWAT Cholesterol, Non-HDL, Calculated 282(H) mg/dL 06/07/2024 4:47 PM OUTPATIENT PHYSICAL THERAPIST ASSISTANT OWAT Comment: ----REFERENCE VALUE---- Desirable: <130 mg/dL Above Desirable: 130-159 mg/dL Borderline High: 160-189 mg/dL High: 190-219 mg/dL Very High: > or =220 mg/dL Fasting (8 HR or more) Yes 8:02 AM OUTPATIENT PHYSICAL THERAPIST ASSISTANT OWAT Blood (Blood, Venous) 06/07/2024 8:02 AM OUTPATIENT PHYSICAL THERAPIST ASSISTANT 06/07/2024 12:58 PM OUTPATIENT PHYSICAL THERAPIST ASSISTANT Laly LAKHANI, P.A.-C. LAB BLOOD ADD-ON Final Result Performing Organization Address [facility] Co de Phone Number [facility] [address] [place] [address], [place] OWAT [facility] [place] [address] [place] [address] * Vitamin D, Immunoassay, Total, Serum (06/07/2024 8:02 AM OUTPATIENT PHYSICAL THERAPIST ASSISTANT) Vitamin D, Immunoassay, Total, S 40 20 - 80 ng/mL 06/07/2024 8:05 PM OUTPATIENT PHYSICAL THERAPIST ASSISTANT MKTO Comment: Optimum levels within the healthy population are 20-50, patients with bone disease may benefit from high levels within this range Blood (Blood, Venous) 06/07/2024 8:02 AM OUTPATIENT PHYSICAL THERAPIST ASSISTANT 06/07/2024 7:21 PM OUTPATIENT PHYSICAL THERAPIST ASSISTANT Laly LAKHANI, P.A.-C. LAB BLOOD ADD-ON Final Result Performing Organization Address [facility] Co de Phone Number [facility] [place] [address], [place] MKTO [facility] [address] [place] [address] * (ABNORMAL) Parathyroid Hormone (PTH) (06/07/2024 8:02 AM OUTPATIENT PHYSICAL THERAPIST ASSISTANT) Parathyroid Hormone (PTH), S 103(H) 15 - 65 pg/mL 06/07/2024 3:55 PM OUTPATIENT PHYSICAL THERAPIST ASSISTANT AUST Comment: Biotin has been identified by the organic chemistry professor as a potential interfering substance. Higher concentrations of biotin may be found in multivitamins, hair/nail supplements, and workout supplements. If the result does not match clinical observations, repeat testing after patient refrains from the use of supplements for at least 12 hours. Blood (Blood, Venous) 06/07/2024 8:02 AM OUTPATIENT PHYSICAL THERAPIST ASSISTANT 06/07/2024 3:36 PM OUTPATIENT PHYSICAL THERAPIST ASSISTANT Laly LAKHANI P.A.-C. LAB BLOOD ADD-ON Final Result Performing Organization Address [facility] Co de Phone Number [facility] [address] [place] [address], [facility] - [facility] [address] [place] [address] * (ABNORMAL) Hemoglobin A1c (06/07/2024 8:02 AM OUTPATIENT PHYSICAL THERAPIST ASSISTANT) Hemoglobin A1c, B 5.9(H) 4.2 - 5.6 % 06/07/2024 3:15 PM OUTPATIENT PHYSICAL THERAPIST ASSISTANT OW Comment: Hemoglobin A1c values of 5.7-6.4 percent indicate an increased risk for developing diabetes mellitus. In diabetic patients, HbA1c goals should be discussed with healthcare provider. Blood (Blood, Venous) 06/07/2024 8:02 AM OUTPATIENT PHYSICAL THERAPIST ASSISTANT 06/07/2024 12:58 PM OUTPATIENT PHYSICAL THERAPIST ASSISTANT Laly LAKHANI, P.A.-C. LAB BLOOD ADD-ON Final Result Performing Organization Address [facility] Co de Phone Number [facility] [address] [place] [address], [facility] OWAT [facility] [place] [address] [place] [address] * BI Breast Screening Bilateral with Tomosynthesis [...] Maintenance Insurance [facility] MEDICARE Member Subscriber Plan / Payer (Ef fective 1999-Present) Name:Anna Ortega Member ID:[id number] Relation to Subscriber:Self Name:Anna Ortega Subscriber ID:[id number] Payer ID:Not on file Group ID:Not on file Type:Medicare Address: [address] [place] [id number] Advance Directives For more information, please contact: [phone] * Full Code (Latest Code Status on File) Date Activated Date Inactivated Comments 08/14/2024 12:53 PM 08/15/2024 1:26 PM Question Answer Comments Full Code: Not Discussed Due to: Patient not available * Full Code Date Activated Date Inactivated Comments 08/14/2024 5:57 AM 08/14/2024 12:53 PM Question Answer Comments Full Code: Not Discussed Due to: Patient not available * Full Code Date Activated Date Inactivated Comments 06/22/2024 9:19 PM 06/25/2024 4:27 PM Question Answer Comments Full Code: Discussed * DNR Date Activated Date Inactivated Comments 06/22/2024 8:50 PM 06/22/2024 9:19 PM Question Answer Comments DNR (Do Not Resuscitate): Discussed-Patient Care Teams Radio Division Lieutenant Relationship Specialty Start Date End Date Laly Dickey MPAS, P.A.-C. [address] [place], [place] [address] [address] PCP - General Internal Medicine 07/28/22
--- OUTSIDE RECORDS SUMMARY | 2024-08-15 14:11 | XMS_ITS | Encounter Summary ---
Author Organization [facility] Address [address] [place] [address] Care Team Providers Care Shredded Filler Hopper Feeder Name Role Phone Laly Dickey P.A.-C. Primary Care Pro vider Reason for Visit * Reason Onset Date Comments Pre-visit Intake 08/07/2024 * Appointment Request (Routine) - Authorized Specialty Diagnoses / Procedures Referred By Nemo t Referred To Contact Neurological Surgery Referral ID Status Reason Start Date Expiration Date V isits Requested Visits Authorized [id number] Authorized 07/03/2024 10/03/2025 1 1 Encounter Details Date Type Department Care Team (Latest Contact Info) Description 08/07/2024 3:15 PM CDT Clinical Communication Virtual Review in [place], [place] [address] [place] [address] Pre-visit Intake Social History Tobacco Use Types Packs/Day Years Used Date Smoking Tobacco: Former Cigarettes 2 30 0 11/13/1975 - 11/12/2005 Passive Smoke Exposure: Past Smokeless Tobacco: Never Tobacco Cessation:Counseling Given: Not Answered Comments:Quit smoking in 2002 Alcohol Use Standard Drinks/Week Comments Not Currently 0 (1 standard drink = 0.6 oz pur e alcohol) [facility] Utilities Answer Date Recorded In [...] I have a [place] place to live 06/23/2024 Comments No Sex and Gender Information Value Date Recorded Sex Assigned at Female 03/19/2023 10:10 AM CDT Legal Sex Female 1:31 PM LEGAL BILLING CLERK Gender Identity Female 03/19/2023 10:10 AM CDT Sexual Orientation Not on file documented as of this encounter Plan of Treatment Upcoming Encounters Date Type Department Care Team (Late st Contact Info) Description 09/20/2024 3:00 PM CDT Appointment Department of Neurology in [address] [phone] Carmen Petit APRN, Sommer.N.P., M.S.N. [address] [place] [phone] 09/20/2024 3:45 PM CDT Appointment Department of Radiology, [facility], in [place], [place] [address] [place] [phone] Carmen Petit APRN, C.N.P., M.S.N. [address] [place] [phone] 09/21/2024 9:30 AM CDT Office Visit Department of Neurologic Surgery in [address] [phone] Ashley Watts P.A.-C. [address] [place] [phone] 10/09/2024 9:30 AM CDT Office Visit Department of Otorhinolaryngology in [address] [phone] Montserrat Jacobs M.D. [address] [place] [phone] Scheduled Procedures Name Priority Associated Diagnoses Date/Ti me ARTHROPLASTY TOTAL REVERSE SHOULDER Fracture 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 documented as of this encounter Visit Diagnoses Not on filedocumented in this encounter Additional Health Concerns Assessment Noted Time PHQ-9 Depression Total Score: 0 07/05/19 25 10:01 AM LEGAL BILLING CLERK documented as of this encounter Care Teams Shredded Filler Hopper Feeder Relationship Specialty Start Date End Date Laly Dickey MPAS, P.A.-C. [address] [place] [address] PCP - General Internal Medicine 07/28/22 documented as of this encounter
--- OUTSIDE RECORDS SUMMARY | 2024-08-15 14:11 | XMS_ITS | Encounter Summary ---
Author Organization [facility] Address [address] [place] [address] Care Team Providers Care Forest Nursery Worker Name Role Phone Laly Dickey P.A.-C. Primary Care Pro vider Reason for Referral * Outpatient (Routine) - Closed Specialty Diagnoses / Procedures Referred By Contac t Referred To Contact Diagnoses Hydrocephalus Normal Pressure (HCC) Procedures Neurological Gait Disorders Laboratory Hydrocephalus Agustin Granda M.D., Ph.D. [address] [place] [phone] Phone: tel: fax: [facility] Referral ID Status Reason Start Date Expiration Date Visits Re quested Visits Authorized [id number] Closed 05/09/2024 05/09/2025 1 1 Reason for Visit * Outpatient (Routine) - Closed Specialty Diagnoses / Procedures Referred By Nemo t Referred To Contact Diagnoses Hydrocephalus Normal Pressure (HCC) Procedures Neurological Gait Disorders Laboratory Hydrocephalus Agustin Granda M.D., Ph.D. [address] [place] [phone] Phone: tel: fax: [facility] Referral ID Status Reason Start Date Expiration Date Visits Re quested Visits Authorized [id number] Closed 05/09/2024 05/09/2025 1 1 Encounter Details Date Type Department Care Team (Latest Contact Info) Description 08/09/2024 1:35 PM CDT - 08/09/2024 3:02 PM CDT Hospital Encounter Department of Neurology in [place], [place] [address] [place] [phone] Agustin Granda M.D., Ph.D. 200 [place] [phone] Ricardo Nayak M.D. [address] [place] [phone] Hydrocephalus Normal Pressure (HCC) Discharge Disposition: Home or Self Care Social History Tobacco Use Types Packs/Day Years Used Date Smoking Tobacco: Former Cigarettes 2 30 0 11/13/1975 - 11/12/2005 Passive Smoke Exposure: Past Smokeless Tobacco: Never Comments:Quit smoking in 200 3 Alcohol Use Standard Drinks/Week Comments Not Currently 0 (1 standard drink = 0.6 oz pur e alcohol) [facility] Utilities Answer Date Recorded In the past 12 months has e [employer], gas, oil, or water [employer] threatened to shut off services in your [...] your living situation today? I have a [facility] place to live 06/23/2024 Comments No Sex and Gender Information Value Date Recorded Sex Assigned at Female 03/19/2023 10:10 AM CDT Legal Sex Female 1:31 PM PRESCHOOL DIRECTOR Gender Identity Female 03/19/2023 10:10 AM CDT Sexual Orientation Not on file documented as of this encounter Medications at Time of Discharge acetaminophen (TylenoL) 500 mg tablet Take 2 tablets (1,000 mg total) by mouth every 6 (six) hours as needed for mild pain or score 1-3 of 10, moderate pain or score 4-6 of 10 or severe pain or score 7-10 of 10. 06/25/2024 albuterol 90 mcg/actuation inhaler Inhale 2 puffs every 4 (four) hours as needed for shortness of breath. 54 g 3 07/05/2024 6 amitriptyline (ElaviL) 50 mg tablet Take 2 tablets (100 mg total) by mouth at bedtime. 06/20/2024 atorvastatin (Lipitor) 80 mg tablet Take 1 tablet (80 mg total) by mouth daily. 90 tablet 3 06/14/2024 6 BD Ultra-Fine Short Pen Needle 31 gauge x 5/16 needle USE DIRECTED 11/07/2022 diclofenac sodium (Voltaren) 1 % gel Apply 4 g topically 4 (four) times a day as needed (Pain). Apply to right shoulder. 200 g 3 01/12/2024 ezetimibe (Zetia) 10 mg tablet Take 1 tablet (10 mg total) by mouth daily. Patient needs Labs for further refills. 90 tablet 3 05/01/2024 gabapentin (Neurontin) 300 mg capsule Take 1 capsule (300 mg total) by mouth 2 (two) times a day. 06/20/2024 ipratropium-albu teroL (DUONEB) 0.5-2.5 mg/3 mL nebulizer [...] See Admin Instructions. 270 strip 3 06/14/2024 oxyCODONE (Roxicodone) 5 mg immediate release tabletIndication s:Acute Pain Take 1 tablet (5 mg total) by mouth every 4 (four) hours as needed for severe pain or score 7-10 of 10 for up to 3 days Indication: Acute Pain. 18 tablet 08/15/2024 10:20 AM CDT 08/14/2024 5 polyethylene glycol (MIRALAX) 17 gram/dose oral powder Take 1 packet by mouth as needed for constipation. 12/20/2019 semaglutide (Ozempic) 2 mg/dose (8 mg/3 mL) injection Inject 2 mg under the skin every 7 (seven) days. 3 mL 11 06/14/2024 sennosides-docus ate sodium (Senokot-S) 8.6-50 mg per tablet Take 1 tablet by mouth 2 (two) times a day. 06/25/2024 Spiriva Respimat 2.5 mcg/actuation inhaler inhale 2 puffs by mouth daily 12 g 3 03/13/2024 torsemide (Demadex) 20 mg tablet TAKE 4 TABLETS(80 MG) BY MOUTH DAILY 360 tablet 3 06/05/2024 traMADoL (Ultram) 50 mg tabletIndication s:Chronic Pain/Nonacute Pain Take 1 tablet (50 mg total) by mouth 2 (two) times a day as needed for pain for up to 28 days Indications: Chronic Pain/Nonacute Pain. 56 tablet 07/24/2024 venlafaxine XR (EFFEXOR-XR) 150 mg 24 hr capsule TAKE 1 CAPSULE(150 MG) BY MOUTH DAILY 90 capsule 3 08/02/2023 cefUROXime (Ceftin) 500 mg tablet Take 1 tablet by mouth 2 (two) times a day. 07/19/2024 metroNIDAZOLE (FlagyL) 500 mg tablet Take 1 tablet by mouth 2 (two) times a day. 07/19/2024 5 documented as of this encounter Procedure Notes * Ricardo Nayak M.D. - 08/09/2024 2:00 PM CDTAssociated Order(s): Neurological Gait Disorders Laboratory Hydrocephalus Pre-Procedure Diagnose(s): Hydrocephalus Normal Pressure (HCC) Post-Procedure Diagnose(s): Hydrocephalus Normal Pressure (HCC) Neurological Gait Disorders Laboratory Hydrocephalus Performed by: Ricardo Nayak M.D. Authorized by: Agustin Granda M.D., Ph.D. Neurology Gait Disorders Laboratory Report Indication: Gait, balance and physical function assessment for evaluation and monitoring of treatment. Initial Video is available in the image viewer Raw data values are viewable in the procedures tab under Neurology Gait Disorders Lab. Clinical Summary: The patient was seen in the neurology gait disorders lab for evaluation of gait and balance impairment. The patient experiences slow unsteady gait. Of note, in addition to neurologic concerns the patient does have a history of bilateral knee replacement and a mild valgus deformityas well as significant external rotation at the feet, particularly on the right where there is a fair amount of eversion to the point where she is essentially walking on the side of that foot. Method Harness used: No Gait: Gait evaluation was performed using a pressure sensitive walkway to collect spatial-temporal parameters. The patient walked at a comfortable self- selected speed. Total number of passes: 5 Foot wear: barefoot Gait aid used during evaluation: none Balance: Balance evaluation was performed on a series of force plates. Static stability: Modified clinical test of sensory integration in balance (mCTSIB) Normative values for the age decade were used for gait (available for 20-89 yrs) and balance data (available for 20-79 yrs). Results: Gait: Spatial temporal parameters show reduced velocity and stride length to about 50% of the mean for age. Stride width was just above the upper limit of normal and piedad at the lower limit of normal. Gait variability was increased by around 45%. Gait cycle phases show increased double support time, reduced swing phase. In comparing the right and left limb, step length was similar but there was increased single support time on the right (32%) versus left (26%). Balance: Static stability (mCTSIB) showed mean COG sway within normal range with eyes open, but increased above normal with eyes closed. She was unable to safely stand on the foam. Interpretation: The reduced velocity and stride length, as well as increased stride width, would be consistent withgait changes that can occur with NPH. However, the asymmetry in pattern is more likely accounted for by orthopedic factors, which are also likely influencing the overall severity of gait disorder. Recommendations: Results of this test and specific recommendations should be discussed with your neurologist. Patient may benefit from physical medicine and rehabilitation evaluation by a neurological physical therapist with a focus on gait and balance training. Regular sessions under supervision followed by a homeexercise program if appropriate may be beneficial. It is advisable to remain cautious and attentiveof surroundings to reduce risk of falls. Please refer to a physical therapist's guideline regarding appropriate gait aid recommendations. No questionnaires on file. Time spent: 60 minutes documented in this encounter Plan of Treatment Upcoming Encounters Date Type Department Care Team (Late st Contact Info) Description 09/20/2024 3:00 PM CDT Appointment Department of Neurology in [address] [phone] Carmen Petit APRN, C.NPoly., M.S.N. [address] [place] [phone] 09/20/2024 3:45 PM CDT Appointment Department of Radiology, [facility], in [address] [phone] Carmen Petit APRN, C.N.P., M.S.N. [address] [place] [phone] 09/21/2024 9:30 AM CDT Office Visit Department of Neurologic Surgery in [address] [phone] Ashley Watts P.A.-C. [address] [place] [phone] 10/09/2024 9:30 AM CDT Office Visit Department of Otorhinolaryngology in [address] [phone] Montserrat Jacobs M.D. [address] [place] [phone] Scheduled Procedures Name Priority Associated Diagnoses Date/Ti me ARTHROPLASTY TOTAL REVERSE SHOULDER Fracture 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 documented as of this encounter Procedures Procedure Name Priority Date/Time Associated Diagnosis Comments NEUROLOGY GAIT DISORDERS LABORATORY Routine 08/09/2024 2:00 PM CDT Hydrocephalus Normal Pressure (HCC) documented in this encounter Results * NEUROLOGY GAIT DISORDERS LABORATORY (08/09/2024 2:00 PM CDT) Narrative Ricardo Nayak M.D. - 08/09/2024 2:00 PM CDT Ricardo Nayak M.D. 08/09/2024 3:02 PM Neurological Gait Disorders Laboratory Hydrocephalus Performed by: Ricardo Nayak M.D. Authorized by: Agustin Granda M.D., Ph.D. Agustin Granda M.D., Ph.D. NEUROLOGY ORDERABLE S Final Result documented in this encounter Visit Diagnoses Diagnosis Hydrocephalus Normal Pressure (HCC) documented in this encounter Additional Health Concerns Assessment Noted Time PHQ-9 Depression Total Score: 0 07/05/19 25 10:01 AM PRESCHOOL DIRECTOR documented as of this encounter Care Teams Forest Nursery Worker Relationship Specialty Start Date End Date Laly Dickey MPAS, P.A.-C. [address] [place], [place] [address] [address] PCP - General Internal Medicine 07/28/22 documented as of this encounter
--- OUTSIDE RECORDS SUMMARY | 2024-08-15 14:11 | XMS_ITS | Encounter Summary ---
Author Organization [facility] Address [address] [place] [address] Care Team Providers Care Lead Software Engineer Name Role Phone Laly Dickey P.A.-C. Primary Care Pro vider Reason for Referral * Outpatient (Routine) - Closed Specialty Diagnoses / Procedures Referred By Nemo morales Referred To Contact Otorhinolaryngology Diagnoses Acute Sialoadenitis Walter Mcgovern M.D. [address] [place] [address] Phone: tel: fax: [facility] Referral ID Status Reason Start Date Expiration Date Visits Re quested Visits Authorized [id number] Closed 08/01/2024 01/31/2026 1 1 TENDER PULP DRIER Encounter Details Date Type Department Care Team (Latest Contact Info) Description 08/01/2024 [facility] [address] [place] [address] Walter Mcgovern M.D. [address] [place] [address] Acute Sialoadenitis (Primary Dx) Social History Tobacco Use Types Packs/Day Years Used Date Smoking Tobacco: Former Cigarettes 2 30 0 11/13/1975 - 11/12/2005 Passive Smoke Exposure: Past Smokeless Tobacco: Never Alcohol Use Standard Drinks/Week Comments Not Currently 0 (1 standard drink = 0.6 oz pur e alcohol) [facility] Utilities Answer Date Recorded In the [...] your living situation today? I have a [facility] place to live 06/23/2024 Comments No Sex and Gender Information Value Date Recorded Sex Assigned at Female 03/19/2023 10:10 AM CDT Legal Sex Female 1:31 PM BACK TENDER PULP DRIER Gender Identity Female 03/19/2023 10:10 AM CDT Sexual Orientation Not on file documented as of this encounter Plan of Treatment Upcoming Encounters Date Type Department Care Team (Late st Contact Info) Description 09/20/2024 3:00 PM CDT Appointment Department of Neurology in [place], [place] [address] [place] [phone] Carmen Petit APRN, C.N.P., M.S.N. [address] [place] [phone] 09/20/2024 3:45 PM CDT Appointment Department of Radiology, [facility], in [place], [place] [address] [place] [phone] Carmen Petit APRN, C.N.P., M.S.N. [address] [place] [phone] 09/21/2024 9:30 AM CDT Office Visit Department of Neurologic Surgery in [place], [place] [address] [place] [phone] Ashley Watts P.A.-C. [address] [place] [phone] 10/09/2024 9:30 AM CDT Office Visit Department of Otorhinolaryngology in [place], [place] [address] [place] [address] Montserrat Jacobs M.D. 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 [address] [place] [phone] PCP - General Internal Medicine 07/28/22 documented as of this encounter
--- OUTSIDE RECORDS SUMMARY | 2024-08-15 14:11 | XMS_ITS | Encounter Summary ---
Author Organization [facility] Address [address] [place] [address] Care Team Providers Care Cattle Feeder Name Role Phone Laly Dickey P.A.-C. Primary Care Pro vider Encounter Details Date Type Department Care Team (Latest Contact Info) Description 08/08/2024 9:50 AM CDT - 08/08/2024 11:59 PM CDT Hospital Encounter Department of Laboratory Medicine in [place], [place] [address] [facility] [place] [place] [phone] Agustin Granda M.D., Ph.D. [address] [place] [address] Hydrocephalus Normal Pressure (HCC); Preoperative Exam; Chronic [...] drink = 0.6 oz pur e alcohol) [facility] Utilities Answer Date Recorded In the past 12 months has e [employer], gas, oil, or water [employer] threatened to shut off services in your [...] [facility] place to live 06/23/2024 Comments No Sex and Gender Information Value Date Recorded Sex Assigned at Female 03/19/2023 10:10 AM CDT Legal Sex Female 1:31 PM MAINTENANCE TECH Gender Identity Female 03/19/2023 10:10 AM CDT [...] shortness of breath. 54 g 3 07/05/2024 amitriptyline (ElaviL) 50 mg tablet Take 2 [...] 07/19/2024 5 documented as of this encounter Plan of Treatment Upcoming Encounters Date Type Department Care Team (Late st Contact Info) Description 09/20/2024 3:00 PM CDT Appointment Department of Neurology in [address] [phone] Carmen Petit APRN, C.N.P., M.S.N. [address] [place] [phone] 09/20/2024 3:45 PM CDT Appointment Department of Radiology, [facility] in [place], [place] [address] [place] [phone] Carmen Petit APRN, C.N.P., M.S.N. [address] [place] [phone] 09/21/2024 9:30 AM CDT Office Visit Department of Neurologic Surgery in [address] [phone] Ashley Watts P.A.-C. [address] [place] [phone] 10/09/2024 9:30 AM CDT Office Visit Department of Otorhinolaryngology in [address] [phone] Montserrat Jacobs M.D. 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 LAB BLOOD ADD-ON Final Result [facility] [address] [place] [address], [place] [facility] [place] [address] [place] [address] * Type and Screen (with Reflex Antibody ID) (08/08/2024 10:02 AM CDT) ABORh B Pos Not applicable 08/09/2024 8:22 AM CDT ETRM Antibody Screen Negative Negative 08/09/2024 8:35 AM CDT ETRM Type & Screen Expiration 08/11/2024 23:59 08/09/2024 8:22 AM CDT ETRM Testing Location [facility] 08/09/2024 7:30 AM CDT ETRM Blood (Blood, Venous) 08/08/2024 10:02 AM CDT 08/09/2024 7:30 AM CDT Agustin Granda M.D., Ph.D. LAB BLOOD BANK TEST ORDERABLES Final Result [facility] [address] [place] [address], [facility] ETRM [facility] [address] documented in this encounter Visit Diagnoses Diagnosis Hydrocephalus Normal Pressure (HCC) Preoperative Exam Chronic Kidney Disease Stage 4 Glomerular Filtration Rate 15-29 (HCC) documented in this encounter Additional Health Concerns Assessment Noted Time PHQ-9 Depression Total Score: 0 07/05/19 25 10:01 AM MAINTENANCE TECH documented as of this encounter Care Teams Cattle Feeder Relationship Specialty Start Date End Date Laly Dickey MPAS, P.A.-C. [address] [place] [address] [place] [phone] PCP - General Internal Medicine 07/28/22 documented as of this encounter
--- OUTSIDE RECORDS SUMMARY | 2024-08-15 14:11 | XMS_ITS | Encounter Summary ---
Author Organization [facility] Address [address] [place] [address] Care Team Providers Care Field Adjuster Name Role Phone Laly Dickey, P.A.-CKavya Primary Care Pro vider Reason for Visit * Reason Comments Med Refill Encounter Details Date Type Department Care Team (Late st Contact Info) Description 07/21/2024 Refill Department of Community Internal Medicine in [place], [place] [address] [place] [address] Laly Dickey MPAS, P.A.-C. [address] [place] [address] Med Refill Social History Tobacco Use Types Packs/Day Years Used Date Smoking Tobacco: Former Cigarettes 2 30 0 11/13/1975 - 11/12/2005 Passive Smoke Exposure: Past Smokeless Tobacco: Never Alcohol Use Standard Drinks/Week Comments Not Currently 0 (1 standard drink = 0.6 oz pur e alcohol) [facility] Utilities Answer Date Recorded In the past 12 months has e [employer], gas, oil, or water company threatened to [...] your living situation today? 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 - 07/24/2024 3:28 PM AUTOMOTIVE TEACHER SUBJECTIVE CHIEF COMPLAINT / REASON FOR CALL Med Refill Information Discussed Called and informed patient of prescription sent to pharmacy per Laly Dickey PA.-C. PLAN Disposition/Recommendation: self-care . appropriate at this time, patient encouraged to call back with questions Information/Education: patient/caller able to teach back Caller agreeable to plan of care: yes The following references were used: provider Laly Dickey P.A.-C. MOTIVE TEACHER documented in this encounter Plan of Treatment Upcoming Encounters Date Type Department Care Team (Late st Contact Info) Description 09/20/2024 3:00 PM CDT Appointment Department of Neurology in [place], [place] [address] [place] [phone] Carmen Petit APRN, Sommer.N.P., M.S.N. [address] [place] [phone] 09/20/2024 3:45 PM CDT Appointment Department of Radiology, [facility], in [place], [place] [address] [place] [address] Carmen Petit APRN, C.N.P., M.S.N. [address] [place] [phone] 09/21/2024 9:30 AM CDT Office Visit Department of Neurologic Surgery in [place], [place] [address] [place] [phone] Ashley Watts P.A.-C. [address] [place] [phone] 10/09/2024 9:30 AM CDT Office Visit Department of Otorhinolaryngology in [place], [place] [address] [place] [address] Montserrat Jacobs M.D. [address] [place] [phone] Scheduled Procedures Name Priority Associated Diagnoses Date/Ti me ARTHROPLASTY TOTAL REVERSE SHOULDER Fracture 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 documented as of this encounter Visit Diagnoses Diagnosis Pain Low Back Chronic Fracture 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 documented in this encounter Additional Health Concerns Assessment Noted Time PHQ-9 Depression Total Score: 0 07/05/19 25 10:01 AM AUTOMOTIVE TEACHER documented as of this encounter Care Teams Field Adjuster Relationship Specialty Start Date End Date Laly Dickey MPAS, P.A.-C. [address] [place] [phone] PCP - General Internal Medicine 07/28/22 documented as of this encounter
--- OUTSIDE RECORDS SUMMARY | 2024-08-15 14:11 | XMS_ITS | Encounter Summary ---
Author Organization [facility] Address [address] [place] [address] Care Team Providers Care Manager Nc Name Role Phone Laly Dickey P.A.-C. Primary Care Pro vider Reason for Referral * Outpatient (Routine) - Authorized Specialty Diagnoses / Procedures Referred By Nemo morales Referred To Contact Otorhinolaryngology Montserrat Jacobs M.D. [address] [place] [address] Phone: tel: fax: [facility] Referral ID Status Reason Start Date Expiration Date V isits Requested Visits Authorized [id number] Authorized 08/10/2024 02/09/2026 1 1 Reason for Visit * Reason Comments parotid sialdenitis * Outpatient (Routine) - Closed Specialty Diagnoses / Procedures Referred By Nemo morales Referred To Contact Otorhinolaryngology Diagnoses Acute Sialoadenitis Walter Mcgovern M.D. [address] [place] [address] Phone: tel: fax: [facility] Referral ID Status Reason Start Date Expiration Date Visits Re quested Visits Authorized [id number] Closed 08/01/2024 01/31/2026 1 1 Encounter Details Date Type Department Care Team (Latest Contact Info) Description 08/10/2024 2:30 PM CDT Comprehensive Visit Department of Otorhinolaryngology in [place], [place] [address] [place] [address] Montserrat Jacobs M.D. [address] [place] [phone] Acute Sialoadenitis Social History Tobacco Use Types Packs/Day Years Used Date Smoking Tobacco: Former Cigarettes 2 30 0 11/13/1975 - 11/12/2005 Passive Smoke Exposure: Past Smokeless Tobacco: Never Comments:Quit smoking in 200 3 Alcohol Use Standard Drinks/Week Comments Not Currently 0 (1 standard drink = 0.6 oz pur e alcohol) [facility] Utilities Answer Date Recorded In the past 12 months has e electric, gas, oil, or water [employer] threatened to shut off services in [...] your living situation today? 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 - 08/10/2024 2:30 PM CDT Otolaryngology-Head and Neck Surgery Consult CHIEF COMPLAINT/PURPOSE OF VISIT: Chief Complaint Patient presents with parotid sialdenitis ASSESSMENT/PLAN: #1 Acute Sialoadenitis Anna Ortega is a 69 y.o. female who presented today for evaluation of recurrent sialadenitis. 1. Recurrent Parotitis with Acute Sialadenitis - 69-year-old female with history of acute sialadenitis and recurrent parotitis since May 2024,primarily affecting the right parotid gland. Discussed that she is likely suffering from parotitis secondary to dehydration. I do not think she should postpone her surgery for this. If she has an active infection, we can treat it during her perioperative course. I will plan to see her in 4 - 5 weeks to discuss possible sialoendoscopy pending her surgical course after her CREATIVE MANAGER shunt placement. - Treatment plan: Increase hydration to 7-8 bottles of water per day, drinking every 30 minutes Continue conservative measures: sour candies, warm compresses Gentle massage of the parotid gland in a downward direction Follow-up appointment scheduled for early September 2024 Consider sialoendoscopy if swelling persists at follow-up In summary, the patient is being treated for recurrent parotitis with a focus on hydration and conservative measures. A CREATIVE MANAGER shunt placement is scheduled for her this coming 08/14/24. Follow-up care and monitoring are planned for both conditions. She should continue with her surgery and we will follow closely for her recurrent parotitis with the plan to pursue sialoendoscopy should her sympto ms not improve with conservative measures HISTORY OF PRESENT ILLNESS: Ms. Anna Otrega is a 69-year-old female presenting with a history of acute sialadenitis and recurrent parotitis since May 2024, primarily affecting her right parotid gland. The patient reportsepisodes of parotid gland swelling associated with severe ear pain. In late May, she experienced severe swelling requiring airlift and hospitalization for five days, followed by multiple courses of antibiotics. She was subsequently hospitalized at [facility] for IV antibiotics. The patient notes recurrent swelling when antibiotics are discontinued, despite blood work showing no infection. A recent CT scan with contrast at [facility] revealed no stones. The patient reports associated symptoms of dry mouth and difficulty producing saliva. She has increased her water intake to four to five bottles daily. She denies any swelling of the left parotid gland. The patient's regular physician suspects a gland stricture. She has undergone multiple courses of antibiotics, including levofloxacin and Flagyl, for management. PHYSICAL EXAM: AAOx3, no distress, normocephalic/atraumatic, no stridor or stertor, EOMI, PERRL, visual pulido grossly intact, HB 1 b/l, sensation intact to light touch b/l, trachea midline, no tony adenopathy/neck masses palpated, oral cavity without masses/lesions, no epistaxis/rhinorrhea Focused exam: Right parotid gland feels firm and mildly enlarged compared to the left side. Oral cavity is dry with no visible saliva. Unable to express saliva from the right parotid gland. No sign of active infection León Jacobs M.D. Chief Vortex Operator [facility] Dept. of Otorhinolaryngology-Head & Neck Surgery documented in this encounter Plan of Treatment Upcoming Encounters Date Type Department Care Team (Late st Contact Info) Description 09/20/2024 3:00 PM CDT Appointment Department of Neurology in [address] [phone] Carmen Petit APRN, C.NVioleta, M.S.N. [address] [place] [phone] 09/20/2024 3:45 PM CDT Appointment Department of Radiology, [facility], in [place], [place] [address] [place] [phone] Carmen Petit APRN, C.N.Cristobal., M.S.N. [address] [place] [phone] 09/21/2024 9:30 AM CDT Office Visit Department of Neurologic Surgery in [place], [place] [address] [place] [phone] Ashley Watts P.A.-C. [address] [place] [phone] 10/09/2024 9:30 AM CDT Office Visit Department of Otorhinolaryngology in [place], [place] [address] [place] [address] Montserrat Jacobs M.D. [address] [place] [phone] Scheduled Procedures Name Priority Associated Diagnoses Date/Ti me ARTHROPLASTY TOTAL REVERSE SHOULDER Fracture 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 Scheduled Referrals Name Type Priority Associated Diagnoses Order Schedule Otorhinolaryngology office visit (clinic) Outpatient Referral Routine Expected: 10/10/2024, Expires: 11/10/2025 documented as of this encounter Visit Diagnoses Diagnosis Acute Sialoadenitis documented in this encounter Additional Health Concerns Assessment Noted Time PHQ-9 Depression Total Score: 0 07/05/19 25 10:01 AM CHAIR INSTALLER documented as of this encounter Care Teams Manager Nc Relationship Specialty Start Date End Date Laly Dickey MPAS, P.A.-C. [address] [place] [phone] PCP - General Internal Medicine 07/28/22 documented as of this encounter
--- OUTSIDE RECORDS SUMMARY | 2024-08-15 14:11 | XMS_ITS | Encounter Summary ---
[facility] Address [address] [place] [id number] Care Team Providers Care Home Care Companion Name Role Phone Laly Dickey P.A.-C. Primary Care Pro vider Reason for Visit * Auth/Cert (Routine) Specialty Diagnoses / Procedures Referred By Nemo morales Referred To Contact Diagnoses Hydrocephalus Normal Pressure (HCC) Hydrocephalus Normal Pressure (HCC) [G91.2]. Procedures ventriculoperitoneal shunt placement. LAPAROSCOPIC EXPLORATION, DIAGNOSTIC. Referral ID Status Reason Start Date Expiration Date Visits Re quested Visits Authorized [id number] 1 1 Encounter Details Date Type Department Care Team ([facility] st Contact Info) Description 08/14/2024 7:50 AM CDT - 08/14/2024 10:52 AM CDT Surgery [facility]ST ROM[facility] MAIN OR [address] [place] [phone] Agustin Granda M.D., Ph.D. [address] [place] [phone] ventriculoperitoneal shunt placement. Social History Tobacco Use Types Packs/Day Years Used Date Smoking Tobacco: Former Cigarettes 2 30 0 11/13/1975 - 11/12/2005 Passive Smoke Exposure: Past Smokeless Tobacco: Never Comments:Quit smoking in 200 3 Alcohol Use Standard Drinks/Week Comments Not Currently 0 (1 standard drink = 0.6 oz pur e alcohol) [facility] Utilities Answer Date Recorded In the past 12 months has th e electric, gas, oil, or water [employer] threatened to shut off services in your [...] your living situation today? I have a [facility] place to live 08/14/2024 Comments No Sex and Gender Information Value Date Recorded Sex Assigned at Female 03/19/2023 10:10 AM CDT Legal Sex Female 1:31 PM ADMINISTRATIVE SUPPORT COORDINATOR Gender Identity Female 03/19/2023 10:10 AM CDT Sexual Orientation Not on file documented as of this encounter Last Filed Vital Signs Vital Sign Reading Time Taken Comments Blood Pressure 133/116 08/14/2024 10:45 AM CDT Pulse 89 08/14/2024 10:50 AM CDT Temperature 36.5 C (97.7 F) 08/14/2024 10:46 AM CDT Respiratory Rate 14 08/14/2024 10:50 AM CDT Oxygen Saturation 97% 08/14/2024 10:50 AM CDT Inhaled Oxygen Concentration - - Weight 104 kg (228 lb 2.8 oz) 08/14/2024 5:54 AM CDT Height 175.3 cm (5' 9) 08/14/2024 5:54 AM CDT Body Mass Index 33.7 08/14/2024 5:54 AM CDT documented in this encounter Functional Status * Intimate Partner Violence Question Answer Date of Assessment Author Within the last year, have y ou been humiliated or emotionally abused in other ways by your partner or ex-partner? No 06/23/2024 3:00 PM Aguilar Lincoln, M.S.N., R.N. Within the last year, have [...] partner or ex-partner? No 06/23/2024 3:00 PM ADMINISTRATIVE SUPPORT COORDINATOR Rex Combs M.S.N., R.N. documented as of this encounter Discharge Summaries * Aleksandra Peraza M.D. - 08/15/2024 6:53 AM CDT DISCHARGE SUMMARY BRIEF OVERVIEW Hospital: [facility] Discharge Provider: Agustin Granda M.D. Primary Team: [facility] Neurological Surgery - Jesus Alberto Primary Care Providers: Laly Dickey MPAS P.AKavya-CKavya (General) [address] [place] [phone] Primary Care Provider Primary Care Provider Other Providers: None Admission Date: 08/14/2024 Discharge Date: 08/15/2024 PRINCIPAL DIAGNOSIS Hydrocephalus Normal Pressure (HCC) SECONDARY DIAGNOSES Principal Problem: Hydrocephalus Normal Pressure (HCC) Resolved Problems: * No resolved hospital problems. * Surgery Information This Encounter Past Procedures (08/16/2023 to Today) Date Procedures Providers Loc / Dept 08/14/2024 ventriculoperitoneal shunt placement., LAPAROSCOPIC EXPLORATION, DIAGNOSTIC. Agustin Granda M.D., Ph.D.Aleksandra Peraza M.D.Brando Martel M.D.Ballinger, Beth A, M.D. [facility] DISCHARGE DISPOSITION Home or Self Care [1] ACTIVE ISSUES REQUIRING FOLLOW UP Anticoagulation: No anticoagulation is needed once you are discharged from the hospital Your Activity Level: Resume activity as tolerated including walking at least three times daily, engaging in social activity as tolerated, and performing activities of daily hygiene.Take meals out of bed and sitting upright. No driving while taking narcotic pain medications and until cleared by your surgeon. Weight Bearing Shunt The patient should not lift anything greater than 10 pounds for one month. No driving until clearedby DMV or OT. Your Diet: Please resume your regular pre-hospital diet. We recommend at least two servings of protein (Fish, Chicken, Pork, Beef, Beans, Peanut Butter or Tofu) daily. We recommend 3 servings of calcium daily (Milk, Cheese, Ice cream, yogurt, cottage cheese). We recommend you drink 8 glasses of water daily to keep well hydrated and to prevent constipation. We recommend you use a bowel regimen until you are off all narcotic pain medications (Colace, Senna, Miralax, Prunes, Prune Juice, Smooth Move Tea and a diet high in fiber). Pain Medication: Many patients are given narcotic pain medications at the time of dismissal to use after surgery fora short period of time for pain relief. The medications can cause numerous side effects including nausea, constipation, and confusion. If used for long periods of time, they may be addictive. Try taking pain medication on a regular basis for the first couple of days. Most patients can transition toTylenol 1000 mg every 6 hours as incisional pain subsides. Do not exceed 4000 mg of Tylenol per day, in order to reduce the risk of liver toxicity. Be aware that some narcotics like Percocet, Vicodin, and Lortab contain Tylenol as well. You should not drive while taking narcotics. Narcotic pain medication may cause constipation. To prevent this, it is recommended that you drink plenty of fluid, increase the fiber in your diet, and walk frequently. If needed, you may take an uiwu-gxz-nvzsrjf medication such as docusate sodium (Colace), senna (Senokot), or Miralax. Home Care: Please resume normal activities as tolerated. Try to ambulate as much as you can (at least 3 times a day). Please eat all meals while sitting upright and out of bed. Increase your activity levels as pain decreases. Wound: Please monitor the incision for potential signs and symptoms of infection which includes increased redness, warmth, tenderness, or drainage as well as systemic symptoms such as fever and/or chills. If any of these should occur, Agustin Granda's service should be contacted, and the wound may need tere further evaluated. Sutures/Celina: The patient's wound has been approximated by dissolvable sutures which require no further care. Showering: You may shower 3 days after surgery. However, please avoid soaking the incision in water (bathtub, hot tub, swimming pool, etc.) for six weeks. The surgical wound should be kept clean, and this is best accomplished by letting shower water run across it. The wound should not be directly rubbed or scrubbed for a period of at least one month. Please call 911 or got to the closest ER if you experience sudden chest pain, shortness of breath or difficulty breathing. These are life threatening conditions and need to be address immediately. The patient may contact Agustin Granda service by calling the [facility] Signaling Design Engineer at [phone] or his brick yard hand during regular business hours at [phone]. OUTPATIENT FOLLOW UP Scheduled Appointments 09/20/2024 3:00 PM [facility] 09/20/2024 3:[address] [facility] 257 Radiology 09/21/2024 9:30 AM Ashley Watts P.A.-C. Neurological Surgery 10/09/2024 9:30 AM Montserrat Jacobs M.D. Otorhinolaryngology For appointment details refer to your Patient Appointment Guide. TEST RESULTS PENDING AT DISCHARGE Pending Labs None DETAILS OF HOSPITAL STAY REASON FOR ADMISSION Hydrocephalus Normal Pressure (HCC) HOSPITAL COURSE On the day of admission, the patient was taken to the operative theater by Dr. Granda for a right parietal HOUSEHOLD MANAGER shunt. The intraoperative as well as the immediate postoperative course were uncomplicated. The patient was transferred from the PACU to the neurosurgical floor where she had an uneventful recovery. Postop head CT and shunt series were without acute complication. Exam remained neuro intact. Incision remained clean, dry, and intact. After meeting criteria for dismissal (independently ambulating; tolerating oral diet; voiding spontaneous; optimal pain control), she was discharged home. CONSULTS ORDERED DURING THIS ADMISSION IP CONSULT TO DIABETES IP CONSULT TO CARE MANAGEMENT CONDITION AT DISCHARGE stable Discharge instructions were provided to the patient and caregiver(s). Total time spent in discharge services today: 30 minutes. documented in this encounter Discharge Instructions * Appointments* Nahum Cody - 08/14/2024 9:38 AM CDT RECOMMENDATIONS: 1. The patient will need a Head CT, a Neurology Gait Study, and an appointment with Dr. Granda's Physician Satellite Installer in 4 weeks. These appointments have been scheduled and will be given at discharge. 2. If you have had changes in your overall health status, please follow up with your primary care doctor within a couple of weeks of discharge. 3. If you have any questions about an appointment, please call the Neurosurgery Appointment Center at . [facility] You may have outpatient appointments at [facility] that changed during your hospitalization. Referto your [facility] Patient Visit Guide (PVG) for the most current schedule of appointments and detailed instructions of tests/procedures. * Attachments The following attachments cannot be sent through Care Everywhere. * Oxycodone, Rapid Release (By mouth) (Kinyarwanda) documented in this encounter Medications at Time of Discharge [...] mg total) by mouth at bedtime. 06/20/[address] tablet Take 81 [...] mouth 2 (two) times a day. 06/20/2024 6 ipratropium-albu teroL (DUONEB) 0.5-2.5 mg/3 mL nebulizer [...] BY MOUTH DAILY 90 capsule 3 08/02/2023 documented as of this encounter Progress Notes * Aleksandra Peraza M.D. - 08/15/2024 6:52 AM CDT Anna Ortega 69F [phone] POD1 s/p right parietal HOUSEHOLD MANAGER shunt placement Summary: 69F who presented with several year decline in gait, balance, and cognition, as well as symptoms of urinary urgency. She had improvement in gait after high volume lumbar puncture. MRI demonstrated significant ventriculomegaly c/f NPH. PMH: CKD stage 4, HFpEF, DM2, GERD, COPD, HTN, HLD, obesity Interval: NAEON. AFVSS on RA. Reporting minimal neck soreness/incisional pain, but well controlled with Tylenol and PRN oxycodone 10 mg. Ambulated multiple times in room and in hallway yesterday evening without issue. Shunt series was negative for kinking or discontuities. Postoperative head CT was negative for acute complications. Tolerating PO intake well without nausea. Voiding well. Exam: Aox3. PERRL, EOMI, face symmetric, tongue midline. Full strength in BUE/BLE without pronator drift. Plan: Floor status, regular diet, mobilize as able Pain control with Tylenol, oxycodone 5/10 mg q4hr PRN Ancef x 3 doses Hold DVT chemoprophylaxis Hold home ASA for 1 week postop Discharge home today No prophylactic enoxaparin given risk of intracranial hemorrhage For questions or concerns, please contact Dr. Granda's service at [phone]. * Dunia Rios APRN, C.N.P. - 08/14/2024 11:16 AM CDTAssociated Order(s): Diabetes consult (hospital) DCS WILL NOT FOLLOW, NOTE FOR RECOMMENDATIONS Diabetes consult (hospital) Referring Provider: Aleksandra Peraza M.D. DCS has reviewed the chart of this 69 y.o. female admitted on 08/14/2024 for hydrocephalus Patient has a history of diabetes mellitus, type 2 Pre-admission Diabetes Therapy: Ozempic 2 mg once a week. Patient has lost 100 pounds since starting Ozempic 1.5 years ago. Past 24 Hour Blood Glucose Readings: Recent Labs 08/14/24 0918 08/14/24 0627 GLUCOSEPOC 109 126 Most Recent A1c: Lab Results Component Value Date HGBA1C 5.9 (H) 06/07/2024 Creatinine: Estimated Creatinine Clearance: 43.2 mL/min (A) (by C-G formula based on SCr of 1.53 mg/dL (H)). Lab Results Component Value Date CREATININE 1.53 (H) 08/08/2024 RECOMMENDATIONS FOR INPATIENT: - Monitor Blood Glucose: four times daily before meals and bedtime - Goal Blood Glucose: 140-180 mg/dL - NovoLog moderate correction scale three times daily - Hold diabetes medications while hospitalized. - Please reconsult DCS if patient's blood glucoses are consistently out of goal range. ANTICIPATED DISMISSAL PLAN: Resume preadmission regimen pending any contraindications. Follow up with primary care provider in 3 months. Monitor blood glucose daily Goal: 100-140 mg/dL DCS will not follow. Please reconsult DCS if further assistance is needed or blood glucoses are consistently out of goal range. No charge note. * Garo Rosa, PharmKavyaD., R.Ph. - 08/14/2024 8:16 AM CDT Images from the original note were not included. Admission Medication History Note Adherence issues: No concerns Medication list source: Patient, Care Everywhere or chart review, and Pharmacy or dispense records Medication related information: N/A Prior to Admission Medications Med List Status: Pharmacy Complete Set By: Garo Rosa, Pharm.D., R.Ph. at 08/14/2024 8:16 AM Taking? Last Dose Informant Start Date End Date LT acetaminophen (TylenoL) 500 mg tablet 08/13/2024 at Evening -- 06/25/24 -- Take 2 tablets (1,000 mg total) by mouth every 6 (six) hours as needed for mild pain or score 1-3 of 10, moderate pain or score 4-6 of 10 or severe pain or score 7-10 of 10. Patient taking differently: Take 1,500 mg by mouth 3 (three) times a day as needed for mild pain orscore 1-3 of 10, moderate pain or score 4-6 of 10 or severe pain or score 7-10 of 10. albuterol 90 mcg/actuation inhaler Past Week -- 07/05/24 07/10/25 Inhale 2 puffs every 4 (four) hours as needed for shortness of breath. Notes: May substitute generic Proair, generic Ventolin or generic Proventil as appropriate for patient or insurance preference amitriptyline (ElaviL) 50 mg tablet 08/13/2024 at Bedtime -- 06/20/24 -- Take 2 tablets (100 mg total) by mouth at bedtime. Patient taking differently: Take 150 mg by mouth at bedtime. aspirin [address] tablet () 08/07/2024 -- 02/09/22 08/07/24 Take 81 mg by mouth at bedtime. atorvastatin (Lipitor) 80 mg tablet 08/13/2024 at Morning -- 06/14/24 06/19/25 Take 1 tablet (80 mg total) by mouth daily. BD Ultra-Fine Short Pen Needle 31 gauge x 10/13 needle -- -- 11/07/22 -- USE DIRECTED diclofenac sodium (Voltaren) 1 % gel More than a month -- 01/12/24 -- Apply 4 g topically 4 (four) times a day as needed (Pain). Apply to right shoulder. ezetimibe (Zetia) 10 mg tablet 08/13/2024 at Morning -- 05/01/24 -- Take 1 tablet (10 mg total) by mouth daily. Patient needs Labs for further refills. gabapentin (Neurontin) 300 mg capsule 08/13/2024 at Bedtime -- 06/20/24 06/15/25 Take 1 capsule (300 mg total) by mouth 2 (two) times a day. Patient taking differently: Take 300 mg by mouth at bedtime. ipratropium-albuteroL (DUONEB) 0.5-2.5 mg/3 mL nebulizer solution More than a month -- 10/19/23 -- Inhale 3 mL by nebulization 4 (four) times a day as needed for wheezing or shortness of breath. losartan (Cozaar) 50 mg tablet 08/13/2024 at Morning -- 05/22/24 -- TAKE 1 TABLET(50 MG) BY MOUTH DAILY multivit with minerals/lutein (MULTIVITAMIN 50 PLUS ORAL) Past Month -- -- -- Take 1 tablet by mouth daily. omeprazole (PriLOSEC) [address] capsule 08/13/2024 at Evening -- 08/30/23 -- Take 1 capsule (40 mg total) by mouth 2 (two) times a day before breakfast and dinner. OneTouch Verio Reflect Meter [facility] -- -- 03/07/24 -- APPLY 1 EACH TOPICALLY OneTouch Verio test strips -- -- 06/14/24 -- 3 test See Admin Instructions. polyethylene glycol (MIRALAX) 17 gram/dose oral powder More than a month -- 12/20/19 -- Take 1 packet by mouth as needed for constipation. semaglutide (Ozempic) 2 mg/dose (8 mg/3 mL) injection 08/05/2024 -- 06/14/24 -- Inject 2 mg under the skin every 7 (seven) days. Patient taking differently: Inject 2 mg under the skin every 7 (seven) days. Injects on Wednesday's sennosides-docusate sodium (Senokot-S) 8.6-50 mg per tablet Past Month -- 06/25/24 -- Take 1 tablet by mouth 2 (two) times a day. Patient taking differently: Take 1 tablet by mouth 2 (two) times a day as needed for constipation. Spiriva Respimat 2.5 mcg/actuation inhaler 08/13/2024 at Morning -- 03/13/24 -- inhale 2 puffs by mouth daily torsemide (Demadex) 20 mg tablet 08/13/2024 at Morning -- 06/05/24 -- TAKE 4 TABLETS(80 MG) BY MOUTH DAILY traMADoL (Ultram) 50 mg tablet Past Week -- 07/24/24 08/21/24 Take 1 tablet (50 mg total) by mouth 2 (two) times a day as needed for pain for up to 28 days Indications: Chronic Pain/Nonacute Pain. venlafaxine XR (EFFEXOR-XR) 150 mg 24 hr capsule 08/13/2024 at Morning -- 08/02/23 -- TAKE 1 CAPSULE(150 MG) BY MOUTH DAILY Garo Rosa, Pharm.D., R.Ph. * Klaus Zendejas BCC - 08/14/2024 7:00 AM CDT [facility] Spiritual Care Progress Note Patient: Anna Ortega Age:69 y.o. Location: [id number] Reason(s) for encounter: AM Admit Spiritual Care contact to introduce spiritual care service and assess for potential spiritual care needs. Summary: I had the pleasure to meet with . Anna Ortega for pre-surgical spiritual care support. Spiritual Needs and/or Concerns: No spiritual needs at this time. Spiritual Care interventions: Introduced the role as member of the interdisciplinary care team and assessed spiritual care needs/concerns of patient and/or family Spiritual Care outcomes: Patient/family became familiar with the role of spiritual care provider and identified spiritual care needs. Spiritual Care Plan / Recommendations: Will remain available for spiritual care as needed or requested. Chaplains can be contacted by paging [phone] ([place]) or [phone] (Zoroastrianism). documented in this encounter H&P Notes * Aleksandra Peraza M.D. - 08/14/2024 7:03 AM CDT INTERVAL HISTORY AND PHYSICAL PRE-PROCEDURE UPDATE H&P reviewed. The patient was examined and there are no significant changes to the H&P. Aleksandra Peraza M.D. Source Note - Joseph PickettFahad BledsoeB.S. - 08/10/2024 1:30 PM CDT History and Physical CHIEF COMPLAINT/REASON FOR VISIT: Preop evaluation of laparoscopic access for HOUSEHOLD MANAGER shunt placement Referring Provider: Agustin Granda M.D.,* SUBJECTIVE Anna Ortega is a 69 y.o. female who presents for evaluation of laparoscopic access for HOUSEHOLD MANAGER shunt placement by Dr. Granda. The patient states that she is not on any anticoagulation, not actively smoking, had 2 sections, 2 surgeries for ovarian cyst removals. She does at us that she did undergo any upper abdominal surgeries. At the time of exam, the patient was hemodynamically within normal limit, satting well on room air,afebrile. Full History per EMR: Medical History[1] Surgical History[2] Current Medications[3] Allergies Allergen Reactions Adhesives [Adhesive] Hives (Reselect Reaction) and Rash Blisters Penicillin Hives (Reselect Reaction) Hospitalized Metformin Other (see comments) GI intolerance reports that she quit smoking about 18 years ago. Her smoking use included cigarettes. She started smoking about 48 years ago. She has a 60 pack-year smoking history. She has been exposed to tobacco smoke. She has never used smokeless tobacco. She reports that she does not currently use alcohol. She reports that she does not use drugs. family history includes Bypass in her brother; Diabetes in her brother, brother, paternal grandmother, and sister; Diabetes mellitus type II in her paternal grandmother; Heart in her mother; Heart murmur in her son; Hyperlipidemia in her mother; Hypertension in her brother and mother; Lung cancer in her father and mother; Open heart surgery in her son; Prediabetes in her brother and daughter; Prostate cancer in her father; Psychiatric disorder in her brother. REVIEW OF SYSTEMS A complete 10 system review of systems was completed. Pertinent positive and negative are noted in the HPI above, all other systems were reviewed and were negative. DIAGNOSTICS Please see the record for full details. All laboratory and microbiology values below were independently reviewed and interpreted by myself. No results for input(s): HGB, PLT, WBC in the last 48 hours. No results for input(s): NA, K, CL, HCO3, BUN, CREATININE, GLUCOSE in the last 48 hours. MICROBIOLOGY No results found for this visit on 08/10/24 (from the past 72 hours). IMAGING Imaging was independently reviewed and interpreted by myself. No results found. ASSESSMENT / PLAN #1 Hydrocephalus Normal Pressure (HCC) #2 Preoperative Exam #3 Hyperlipidemia Mixed #4 Venous Insufficiency Chronic Peripheral #5 Obesity Body Mass Index 30-39.9 Adult #6 Nodule Pulmonary Solitary #7 Anxiety Generalized Disorder #8 Diabetes Mellitus Type 2 With Diabetic Polyneuropathy ([facility]) #9 Gastroesophageal Reflux Disease Without Esophagitis #10 Chronic Obstructive Pulmonary Disease ([facility]) #11 Hypertensive Chronic Kidney Disease With Stage 1 Through Stage 4 Chronic Kidney Disease, Or Unspecified Chronic Kidney Disease #12 Chronic Diastolic (Congestive) Heart Failure ([facility]) #13 Apnea Sleep Obstructive #14 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 Ortega is a 69-year-old female who presented to our clinic today for preop evaluation of laparoscopic access for a HOUSEHOLD MANAGER shunt. Her surgery was scheduled on 08/15. We explained our role in the procedure. All her questions were answered. Her daughter accompanies with her at her questions were answered. I explained the operation in detail including the goals, risks, benefits, alternatives, for our part of surgery. They understand the risks include, but are not limited to bleeding, infection, damage to surrounding structures, possible need for re-operation, and complications from anesthesia. We discussed that at [facility] there is a full team incorporated into patient care, and the patient acknowledges that others will be involved in their care. The patient understands that the staff surgeon may be participating in another operative procedure during non-critical portions of their procedure,and that a qualified surgeon will be available if needed. We discussed about the group practice of a [facility] General surgery as well. We discussed hospital policy surrounding photos, videos, and needle injury protocol. The patient consents to the use of blood products. All questions were answered and consent given. She understands and wishes to proceed. Plan and assessment were discussed with Dr. Lazo, who was in agreement. JONATHAN Serrato PGY-1 General Surgery [1] Past Medical History: Diagnosis Date Chronic Obstructive Pulmonary Disease (HCC) Diabetes Mellitus NOS Heart Failure NOS Hepatitis Hyperlipidemia Hypertension NOS Other Injury Of Unspecified Body Region [2] Past Surgical History: Procedure Laterality Date APPENDECTOMY SECTION DILATATION AND CURETTAGE JOINT REPLACEMENT JOINT REPLACEMENT OOPHORECTOMY, PARTIAL OR TOTAL, UNILATERAL OR BILATERAL;.. PARATHYROIDECTOMY SHOULDER SURGERY Left SHOULDER SURGERY Right THYROID SURGERY [3] Current Outpatient Medications: acetaminophen (TylenoL) 500 mg tablet, Take 2 tablets (1,000 mg total) by mouth every 6 (six) hoursas needed for mild pain or score 1-3 of 10, moderate pain or score 4-6 of 10 or severe pain or score 7-10 of 10. (Patient taking differently: Take 1,500 mg by mouth every 6 (six) hours as needed for mild pain or score 1-3 of 10, moderate pain or score 4-6 of 10 or severe pain or score 7-10 of 10.), Disp: , Rfl: albuterol 90 mcg/actuation inhaler, Inhale 2 puffs every 4 (four) hours as needed for shortness of breath., Disp: 54 g, Rfl: 3 amitriptyline (ElaviL) 50 mg tablet, Take 2 tablets (100 mg total) by mouth at bedtime. (Patient taking differently: Take 150 mg by mouth at bedtime.), Disp: , Rfl: aspirin [address] tablet, Take 81 mg by mouth at bedtime., Disp: , Rfl: atorvastatin (Lipitor) 80 mg tablet, Take 1 tablet (80 mg total) by mouth daily., Disp: 90 tablet, Rfl: 3 BD Ultra-Fine Short Pen Needle 31 gauge x 5/16 needle, USE DIRECTED, Disp: , Rfl: cefUROXime (Ceftin) 500 mg tablet, Take 1 tablet by mouth 2 (two) times a day., Disp: , Rfl: diclofenac sodium (Voltaren) 1 % gel, Apply [...] by mouth 2 (two) times a day. (Patient taking differently: Take 300 mg by mouth daily.), Disp: , Rfl: ipratropium-albuteroL (DUONEB) 0.5-2.5 mg/3 mL nebulizer solution, Inhale 3 mL by nebulization 4 (four) times a day as needed for wheezing or shortness of breath., Disp: 90 mL, Rfl: 0 losartan (Cozaar) 50 mg tablet, TAKE 1 TABLET(50 MG) BY MOUTH DAILY, Disp: 90 tablet, Rfl: 3 metroNIDAZOLE (FlagyL) 500 mg tablet, Take 1 tablet by mouth 2 (two) times a day., Disp: , Rfl: multivit with minerals/lutein (MULTIVITAMIN 50 PLUS ORAL), [...] as needed., Disp: , Rfl: semaglutide (Ozempic) 2 mg/dose (8 mg/3 mL) injection, Inject 2 mg under the skin every 7 (seven) days., Disp: 3 mL, Rfl: 11 sennosides-docusate sodium (Senokot-S) 8.6-50 mg per tablet, Take 1 tablet by mouth 2 (two) times aday., Disp: , Rfl: Spiriva Respimat 2.5 mcg/actuation inhaler, inhale 2 puffs by mouth daily, Disp: 12 g, Rfl: 3 torsemide (Demadex) 20 mg tablet, TAKE 4 TABLETS(80 MG) BY MOUTH DAILY, Disp: 360 tablet, Rfl: 3 traMADoL (Ultram) 50 mg tablet, Take 1 tablet (50 mg total) by mouth 2 (two) times a day as needed for pain for up to 28 days Indications: Chronic Pain/Nonacute Pain., Disp: 56 tablet, Rfl: 0 venlafaxine XR (EFFEXOR-XR) 150 mg 24 hr capsule, TAKE 1 CAPSULE(150 MG) BY MOUTH DAILY, Disp: 90 capsule, Rfl: 3 documented in this encounter Nursing Notes * Evan Cruz R.N., JUAN MIGUELN - 08/15/2024 6:00 AM CDT Shift Goals: End of Shift Summary: Patient remained hemodynamically stable with a stable neuro exam while mobilizing to the chair and bathroom with a standby assists and gait belt documented in this encounter OR Notes * Op Note - Agustin Granda M.D., Ph.D. - 08/14/2024 9:30 AM CDT Pre-op Diagnosis Hydrocephalus Normal Pressure (HCC) Post-op Diagnosis Hydrocephalus Normal Pressure (HCC) Procedures Placement of right parietal ventriculoperitoneal shunt with antibiotic impregnated catheters and Certas Plus valve with siphonguard setting 6. Intraoperative use of neuronavigation Pellet Press Operator A credentialing assistant actively participated and was necessary for one or more of the following: opening, exposure and visualization, maintaining hemostasis, wound closure resulting in its safe and expeditious completion. Findings As expected Complications None Operative Note Narrative The patient was brought to the operating room. After induction of adequate general endotracheal anesthesia, the patient was placed in a supine position and a time-out procedure was performed. This included the patient's name, diagnosis, medications, and allergies, the planned procedure, its side and site, and the required equipment and personnel. The stealth navigation was registered to the cranial fiducials and preoperative CT scan. When this was agreed upon, the right frontal, parietal, occipital, cervical, thoracic, and entire abdominal region were sterilely prepped and draped. An horseshoe-shaped incision in the parietal region was made with a 10-blade scalpel and monopolar cautery. It was pulled back with single 0 Vicryl suture and a subgaleal pocket was made inferiorly to allow ultimate placement of the valve system. From the bottom of this pocket, a straight tunneler was used in the subcutaneous space to tunnel down to an abdominal incision, which was just right of midline above the umbilicus. Please see the general surgery dictation for details of the abdominal portion. General surgery assistance was required for laparoscopic access to the abdomen. A [employer] antibiotic impregnated catheter was tunneled from the abdominal incision all the way up to the cranial incision. At the top of the distal catheter, a Certas Plus valve with siphonguard at setting 6 was secured with a 2-0 tie. A Bactiseal ventricular catheter was placed in the rightlateral ventricle using neuronavigation guidance after the dura was opened in a cruciate fashion with a 15-blade scalpel and bipolar cautery. It was trimmed to 10 cm at the bone and secured to the top of the Certas Plus valve and secured with a 2-0 tie. The valve was pulled in the above-named subgaleal pocket followed by pulling at the abdominal catheter at the distal abdominal incision to take out any slack. Fluid was seen to be spontaneously dripping from the abdominal catheter that was then placed into the peritoneal cavity by the general surgeons, and the shunt again was draining following implantation into the peritoneal space. The cranial incision was closed with 2-0 vicryl sutures inthe galea, followed by a running 3-0 monocryl suture for the skin. The incision was sterilely dressed in the operating room. The patient was stable throughout the procedure, was extubated in the operating room, was in baseline neurological condition, moving all extremities and brought to the recovery room in stable condition. Agustin Gradna M.D., Ph.D. * Op Note - Brando Martel M.D. - 08/14/2024 9:30 AM CDT Pre-op Diagnosis Hydrocephalus Normal Pressure (HCC) Post-op Diagnosis Hydrocephalus Normal Pressure (HCC) Pellet Press Operator A credentialing assistant actively participated and was necessary for one or more of the following: opening, exposure and visualization, maintaining hemostasis, wound closure resulting in its safe and expeditious completion. Findings 1. Diagnostic laparoscopy Complications Operative Note Narrative General Surgery was called to the operating room to perform peritoneal access and laparoscopy for ventriculoperitoneal shunt placement. Due to the nature of the case and the patient's anatomy, multiple surgeons were medically required for safe ventriculoperitoneal shunt placement. At the time we entered the operating room, patient was already intubated, positioned, and their abdomen prepped and draped. Our Neurosurgery colleagues were already performing their portion of the procedure. Please see their note for additional details. A left upper quadrant incision was sharply made and peritoneal access was achieved with a 5 mm optiview trocar. Pneumoperitoneum was established. Safe entry was confirmed with laparoscopic inspection. There were dense omental adhesions to the anterior abdominal surface in the upper midline. The left upper quadrant, right upper quadrant and pelvis were free of adhesions. The anterior abdominal wall in the right upper quadrant was visualized and a needle was inserted under direct laparoscopic visualization, corresponding with the tip of the subcutaneous tunnel and the ventricular shunt. A wire was inserted through the needle and the needle was removed. A dilator was passed over the needle and then the peel-apart sheath. The wire was removed. The ventricular shunt was passed through the sheath and the sheath was taken apart, and removed from the field. The pathway of the ventriculoperitoneal shunt was visualized once more. Pneumoperitoneum was evacuated and the laparoscope and trocar wasremoved. The two abdominal skin incisions were closed with subcuticular Monocryl. This completed our portion of the procedure. The case was then turned over to our Neurosurgery colleagues. Brando Martel M.D. Cosigned by Aaliyah Lazo M.D. at 08/15/2024 10:33 AM CDT * Brief Op Note - Aleksandra Peraza M.D. - 08/14/2024 9:30 AM CDT Pre-op Diagnosis Hydrocephalus Normal Pressure (HCC) Post-op Diagnosis Hydrocephalus Normal Pressure (HCC) Findings As expected. Complications None Skin closed with monocryl. Aleksandra Peraza M.D. documented in this encounter Miscellaneous Notes * Hospital Course - Aleksandra Peraza M.D. - 08/14/2024 10:35 AM CDT On the day of admission, the patient was taken to the operative theater by Dr. Granda for a right parietal HOUSEHOLD MANAGER shunt. The intraoperative as well as the immediate postoperative course were uncomplicated. The patient was transferred from the PACU to the neurosurgical floor where she had an uneventful recovery. Postop head CT and shunt series were without acute complication. Exam remained neuro intact. Incision remained clean, dry, and intact. After meeting criteria for dismissal (independently ambulating; tolerating oral diet; voiding spontaneous; optimal pain control), she was discharged home. documented in this encounter Plan of Treatment Upcoming Encounters Date Type Department Care Team (Late st Contact Info) Description 09/20/2024 3:00 PM CDT Appointment Department of Neurology in [place], [place] [address] [place] [address] Carmen Petit APRN, C.N.P., M.S.N. [address] [place] [phone] 09/20/2024 3:45 PM CDT Appointment Department of Radiology, [facility], in [place], [place] [address] [place] [address] Carmen Petit APRN, C.N.P., M.S.N. [address] [place] [phone] 09/21/2024 9:30 AM CDT Office Visit Department of Neurologic Surgery in [place], [place] [address] [place] [phone] Ashley Watts P.A.-C. [address] [place] [phone] 10/09/2024 9:30 AM CDT Office Visit Department of Otorhinolaryngology in [place], [place] [address] [place] [phone] Montserrat Jacobs M.D. [address] [place] [phone] Scheduled Procedures Name Priority Associated Diagnoses Date/Ti [...] outpatients) 08/14/2024 12:44 PM CDT DX ADULT HOUSEHOLD MANAGER SHUNT SERIES RAD - Routine (most inpatients and all outpatients) 08/14/2024 12:24 PM CDT GLUCOSE POCT, B Routine 08/14/2024 11:21 AM CDT ADULT OXYGEN THERAPY Routine 08/14/2024 10:45 AM CDT GLUCOSE POCT, B Routine 08/14/2024 9:18 AM CDT LAPAROSCOPIC EXPLORATION - DIAGNOSTIC 08/14/2024 7:50 AM CDT Hydrocephalus Normal Pressure (HCC) Special Needs CT WITH FIDUCIALS DAY OF PROCEDURE. IMPLANTATION SHUNT VENTRICULAR PERITONEAL 08/14/2024 7:50 AM CDT Hydrocephalus Normal Pressure (HCC) Special Needs CT WITH FIDUCIALS DAY OF PROCEDURE. GLUCOSE POCT, B Routine 08/14/2024 6:27 AM CDT documented in this encounter Results * Glucose, POCT (08/15/2024 7:57 AM CDT) Glucose, POCT, B 136 70 - 140 mg/dL 08/15/2024 8:01 AM CDT PCLX Site Capillary 08/15/2024 8:01 AM CDT PCLX Blood 08/15/2024 7:57 AM CDT 08/15/2024 8:02 AM CDT us Unknown Provider LAB POCT ORDERABLES-MANUAL Marina l Result Performing Organization Address City/[facility]/ZIP Co de Phone Number POC [facility] [address] [place] [address], [facility] PCLX [facility] POC [address] [place] [address] * Glucose, POCT (08/14/2024 9:34 PM CDT) Glucose, POCT, B 127 70 - 140 mg/dL 08/14/2024 9:39 PM CDT PCLX Site Capillary 08/14/2024 9:39 PM CDT PCLX Blood 08/14/2024 9:34 PM CDT 08/14/2024 9:39 PM CDT us Unknown Provider LAB POCT ORDERABLES-MANUAL Marina l Result Performing Organization Address City/[facility]/ZIP Co de Phone Number POC [facility] [address] [place] [address], [facility] PCLX [facility] POC [address] [place] [address] * (ABNORMAL) Glucose, POCT (08/14/2024 4:21 PM CDT) Glucose, POCT, B 177(H) 70 - 140 mg/dL 08/14/2024 4:23 PM CDT PCLX Site Capillary 08/14/2024 4:23 PM CDT PCLX Blood 08/14/2024 4:21 PM CDT 08/14/2024 4:23 PM CDT us Unknown Provider LAB POCT ORDERABLES-MANUAL Marina l Result POC [facility] [address] [place] [address], [facility] PCLX [facility] POC [address] [place] [address] * CT Head without IV Contrast (08/14/2024 12:44 PM CDT) Anatomical Region Laterality Modality Head, Neuroradiology [...] There is associated post procedural subcutaneous emphysema. Ytrp-[id number]-[id number] cerebral leukoaraiosis. Moderate generalized cerebral volume loss [...] neck. There is associated post proceduralsubcutaneous emphysema. Ffah-so-hzoahiso cerebral leukoaraiosis. Moderate generalized cerebralvolume loss with [...] CT PROCEDURES Final Result * DX Adult HOUSEHOLD MANAGER Shunt Series (08/14/2024 12:24 PM CDT) Anatomical Region Laterality Modality Head, Chest, Abdomen, Neuror adiology RST LOS, Neuroradiology ARZ LOS, Muskuloskeletal FLA LOS N/A Digita l Radiography Impressions 08/14/2024 12:51 PM CDT Right posterior parietal approach Codman Certas plus programmable HOUSEHOLD MANAGER shunt. Tubing courses along the right neck and hemithorax before terminating within the right upper quadrant of the abdomen. No focal discontinuity. No acute findings within the visualized chest and abdomen. Multiple chronic right rib fractures. Multilevel spondylitic changes throughout the spine. Narrative 08/14/2024 12:51 PM CDT EXAM: DX ADULT HOUSEHOLD MANAGER SHUNT SERIES Procedure Note Cole Walker D.O. - 08/14/2024 EXAM: DX ADULT HOUSEHOLD MANAGER SHUNT SERIES IMPRESSION: Right posterior parietal approach Codman Certas plus programmable VPshunt. Tubing courses along the right neck and hemithorax beforeterminating within the right upper quadrant of the abdomen. No focaldiscontinuity. No acute findings within the visualized chest and abdomen. Multiple chronic right ribfractures. Multilevel spondylitic changes throughout the spine. Yvonne Haider M.D. [facility] PROC ED[facility] Final Result * (ABNORMAL) Glucose, POCT (08/14/2024 11:21 AM CDT) Glucose, POCT, B 163(H) 70 - 140 mg/dL 08/14/2024 11:24 AM CDT PCLX Blood 08/14/2024 11:2 1 AM CDT 08/14/2024 11:24 AM CDT Unknown Provider LAB POCT ORDERABLES-MANUAL Marina l Result POC [facility] [address] [place] [address], [facility] PCLX [facility] POC [address] [place] [address] * Glucose, POCT (08/14/2024 9:18 AM CDT) Glucose, POCT, B 109 70 - 140 mg/dL 08/14/2024 9:20 AM CDT PCSM Site Artstick 08/14/2024 9:20 AM CDT PCSM Blood 08/14/2024 9:18 AM CDT 08/14/2024 9:20 AM CDT us Unknown Provider LAB POCT ORDERABLES-MANUAL Marina l Result Performing Organization Address City/[facility]/ZIP Co de Phone Number POC [facility] [address] [place] [address], [facility] PCSM [facility] POC [address] [place] [phone] * Glucose, POCT (08/14/2024 6:27 AM CDT) [facility] Glucose, POCT, B 126 70 - 140 mg/dL 08/14/2024 6:44 AM CDT PCLX Site Capillary 08/14/2024 6:44 AM CDT PCLX Blood 08/14/2024 6:27 AM CDT 08/14/2024 6:44 AM CDT us Unknown Provider LAB POCT ORDERABLES-MANUAL Marina l Result Performing Organization Address [facility] Co de Phone Number POC [facility] [address] [place] [address], [facility] PCLX [facility] POC [address] [place] [address] documented in this encounter Visit Diagnoses Diagnosis Hydrocephalus Normal Pressure (HCC) documented in this encounter Admitting Diagnoses Diagnosis Hydrocephalus Normal Pressure (HCC) documented in this encounter Administered Medications Inactive Administered Medications - up to 3 most recent administrations Medication Order MAR Action Action Date Dose Rate Site acetaminophen tablet 1,000 mg (TylenoL) 1,000 mg, oral, Every 6 hours, First dose on Wed08/14/24 at 1315, For 3 days, If patient tolerating oral fluids or has a gastric tube, discontinue injectable opioid and begin this order Given 08/15/2024 6:45 AM CDT 1,000 mg Given 08/15/2024 1:51 AM CDT 1,000 mg Given 08/14/2024 6:32 PM CDT 1,000 mg amitriptyline tablet 150 mg (ElaviL) 150 mg, oral, Daily at bedtime, First dose on Wed08/14/24 at 2100 Given 08/14/2024 9:30 PM CDT 150 mg atorvastatin tablet 80 mg (Lipitor) 80 mg, oral, Daily, First dose on Wed08/15/24 at 0900 Given 08/15/2024 8:56 AM CDT 80 mg benzocaine-menthoL 15-3.6 mg per lozenge 1 lozenge (CepacoL) 1 lozenge, oral, 4 times daily PRN, sore throat, throat irritation, Starting on Wed08/14/24 at 1312 BUPivacaine-EPINEPHrine (PF) 0.25 %-1:200,000 injection (Marcaine w/Epi) As needed, Starting on Wed08/14/24 at 0927, Intra-Op Given 08/14/2024 9:27 AM CDT 10 mL Right Neck calcium carbonate chewable tablet 400 mg of calcium (Tums) 400 mg of calcium, oral, Every 4 hours PRN, heartburn, indigestion, Starting on Wed08/14/24 at 1253, Doses listed are in mg of elemental calcium. Take with food. 500 mg calcium carbonate contains 200 mg of elemental calcium. ceFAZolin 1 g in NaCl 0.9% irrigation pour bottle As needed, Starting on Wed08/14/24 at 1005, Intra-Op Given 08/14/2024 10:05 AM CDT 1,000 mL Right Neck ezetimibe tablet 10 mg (Zetia) 10 mg, oral, Daily, First dose on Wed08/15/24 at 0900 Given 08/15/2024 8:56 AM CDT 10 mg gabapentin capsule 300 mg (Neurontin) 300 mg, oral, Daily at bedtime, First dose on Wed08/14/24 at 2100 Given 08/14/2024 9:28 PM CDT 300 mg hydrALAZINE tablet 25 mg (Apresoline) 25 mg, oral, Every 6 hours PRN, Second-line (after labetalol): SBP >160 mmHg; hold for HR >100 BPM., Starting on Wed08/14/24 at 1253 insulin aspart U-100 injection 0-13 Units (NovoLOG FlexPen) 0-13 Units, subcutaneous, 3 times daily, First dose on Wed08/14/24 at 1700, Insulin Scale: Moderate Correction Scale, 140 - 179: 2 units, 180 - 219: 4 units, 220 - 259: 6 units, 260 - 299: 8 units, 300 - 339: 10 units, 340 - 379: 12 units, 380 - 399: 13 units, Greater than 399: Call service writing Insulin orders Given 08/14/2024 4:39 PM CDT 2 Units Left Lower Abdomen labetaloL injection 10 mg 10 mg, intravenous, Every 10 min PRN, high blood pressure, SBP >160, hold for HR <60, Starting on Wed08/14/24 at 1253, . losartan tablet 50 mg (Cozaar) 50 mg, oral, Daily, First dose on Wed08/15/24 at 0900 Given 08/15/2024 8:56 AM CDT 50 mg melatonin tablet 5 mg 5 mg, oral, Bedtime PRN, sleep, Starting on Wed08/14/24 at 1253 naloxone injection 0.2 mg (Narcan) 0.2 mg, intravenous, As needed, respiratory depression, Starting on Wed08/14/24 at 1253, For RASS Score -4 or less, respiratory rate of less than 8 breaths/min. Notify provider/service and rapid response team (if available at institution). ondansetron (PF) injection 4 mg (Zofran) 4 mg, intravenous, Every 6 hours PRN, nausea, vomiting, Starting on Wed08/14/24 at 1600, For 48 hours, Reassess for nausea or vomiting after at least 10 minutes. If nausea or vomiting persists administer next ordered antiemetic medications (order for antiemetic medication administration ondansetron then haloperidol then prochlorperazine). oxyCODONE IR tablet 10 mg (Roxicodone) 10 mg, oral, Every 4 hours PRN, severe pain or score 7-10 of 10, or for pain greater than comfort goal, Starting on Wed08/14/24 at 1253 Given 08/15/2024 6:09 AM CDT 10 mg Given 08/15/2024 1:52 AM CDT 10 mg Given 08/14/2024 9:28 PM CDT 10 mg oxyCODONE IR tablet 5 mg (Roxicodone) 5 mg, oral, Every 4 hours PRN, severe pain or score 7-10 of 10, Starting on Wed08/14/[address] tablet 40 mg (Protonix) 40 mg, oral, 2 times daily before morning and evening meals, First dose on Wed08/14/24 at 1600, pantoprazole 40 mg oral twice daily was interchanged for omeprazole 20 or 40 mg oral twice daily Swallow whole. Do NOT crush, chew, or split tablet. Given 08/15/2024 6:09 AM CDT 40 mg Given 08/14/2024 3:03 PM CDT 40 mg polyethylene glycol powder packet 17 g (Miralax) 17 g, oral, Daily PRN, constipation, Starting on Wed08/14/24 at 1253, Ordered sequence of administration: polyethylene glycol, then bisacodyl until BM achieved. Avoid mixing with starch-based thickened liquids., Indications: constipationIndications:constipation prochlorperazine injection 5 mg (Compazine) 5 mg, intravenous, Every 6 hours PRN, vomiting, nausea, Starting on Wed08/14/24 at 1253, For 48 hours, RASS must be -2 or higher to administer. Reassess for nausea or vomiting after at least 10 minutes. If nausea or vomiting persists administer next ordered antiemetic medications (order for antiemetic medication administration ondansetron then haloperidol then prochlorperazine) sennosides-docusate sodium 8.6-50 mg per tablet 1 tablet (Senokot-S) 1 tablet, oral, 2 times daily, First dose on Wed08/14/24 at 2100, For constipation. Hold for diarrhea. Given 08/15/2024 8:56 AM CDT 1 tablet Given 08/14/2024 9:28 PM CDT 1 tablet torsemide tablet 80 mg (Demadex) 80 mg, oral, Daily, First dose on Wed08/15/24 at 0900 Given 08/15/2024 8:56 AM CDT 80 mg umeclidinium 62.5 mcg/actuation inhaler 1 puff (Incruse Ellipta) 1 puff, inhalation, Daily (RT), First dose on Wed08/15/24 at 0800, umeclidinium inhalation was interchanged for tiotropium respimat/handihaler 1. Hold device upright in right hand with rough edge. 2. Using left hand open lid (toward left) until click is heard. 3. Tilt inhaler flat so air entrainment vents & counter face up. 4. Inhale to full breath somewhat fast. 5. Hold breath up to 10 seconds. 6. Remove inhaler from mouth. 7. Close lid. Given 08/15/2024 9:04 AM CDT 1 puff venlafaxine XR 24 hr capsule 150 mg (Effexor-XR) 150 mg, oral, Daily, First dose (after last modification) on Wed08/14/24 at 1400, Swallow whole. Do NOT crush, chew or open capsule. Given 08/15/2024 8:56 AM CDT 1 50 mg Given 08/14/2024 1:41 PM CDT 150 mg documented in this encounter Active and Recently Administered Medications Times are shown in CDT. Scheduled Medication Order 08/13/2024 08/14/2024 08/15/2024 acetaminophen tablet 1,000 mg (TylenoL) 1,000 mg, oral, Every 6 hours, First dose on Wed08/14/24 at 1315, For 3 days, If patient tolerating oral fluids or has a gastric tube, discontinue injectable opioid and begin this order 1317 (Given - Provider: Brigid Gunderson R.N.)1832 (Given - Provider: Brigid Gunderson R.N.) 0151 (Given - Provider: Evan Cruz R.N., CCRN)0645 (Given - Provider: Evan Cruz R.N., CCRN) acetaminophen tablet 1,000 mg (TylenoL) (COMPLETED) 1,000 mg, oral, Once, On Wed08/14/24 at 0645, For 1 dose, Pre-Op 0646 (Given - Provider: Renea Parks R.N.) amitriptyline tablet 150 mg (ElaviL) 150 mg, oral, Daily at bedtime, First dose on Wed08/14/24 at 2100 2130 (Given - Provider: Evan Cruz R.N., CCRN) atorvastatin tablet 80 mg (Lipitor) 80 mg, oral, Daily, First dose on Wed08/15/24 at 0900 0856 (Given - Provid er: Rosibel Lee R.N.) ceFAZolin injection 2 g (Ancef) (COMPLETED) 2 g, intravenous, Every 8 hours, First dose on Wed08/14/24 at 1730, For 3 doses, Start within 8 hours of last IV dose. For immediate IV push administration, reconstitute vial per IVAG or package insert instructions. See IVAG for administration guidelines., Drug Monitoring Program: Pharmacist to adjust medication dosing based on indication and drug clearance factors., Indications: Prophylaxis, surgical 163 (Given - Provider: Brigid Gunderson R.N.) 0151 (Given - Provider: Evan Cruz R.N., CCRN)0856 (Given - Provider: Rosibel Lee R.N.) ceFAZolin injection 2,000 mg (Ancef) (COMPLETED) 2,000 mg (rounded from 2,650 mg = 25 mg/kg 106 kg), intravenous, Once, On Wed08/14/24 at 0715, For 1 dose, Intra-Op, Administer within 1 hour prior to surgical incision For immediate IV push administration, reconstitute vial per IVAG or package insert instructions. See IVAG for administration guidelines., Drug Monitoring Program: Pharmacist to adjust medication dosing based on indication and drug clearance factors., Indications: Prophylaxis, surgical 925 (Given - Provider: Imelda Yoon M.D.) ezetimibe tablet 10 mg (Zetia) 10 mg, oral, Daily, First dose on Wed08/15/24 at 0900 0856 (Given - Provid er: Rosibel Lee R.N.) gabapentin capsule 300 mg (Neurontin) 300 mg, oral, Daily at bedtime, First dose on Wed08/14/24 at 2100 2128 (Given - Provider: Evan Cruz R.N., CCRN) insulin aspart U-100 injection 0-13 Units (NovoLOG FlexPen) 0-13 Units, subcutaneous, 3 times daily, First dose on Wed08/14/24 at 1700, Insulin Scale: Moderate Correction Scale, 140 - 179: 2 units, 180 - 219: 4 units, 220 - 259: 6 units, 260 - 299: 8 units, 300 - 339: 10 units, 340 - 379: 12 units, 380 - 399: 13 units, Greater than 399: Call service writing Insulin orders 163 (Given - Provider: Brigid Gunderson R.N.) 0845 (Not Given - Provider: Rosibel Lee R.N. - Reason: Order parameters not met - Comment: BS 136) losartan tablet 50 mg (Cozaar) 50 mg, oral, Daily, First dose on Wed08/15/24 at 0900 0856 (Given - Provid er: Rosibel Lee R.N.) pantoprazole DR tablet 40 mg (Protonix) 40 mg, oral, 2 times daily before morning and evening meals, First dose on Wed08/14/24 at 1600, pantoprazole 40 mg oral twice daily was interchanged for omeprazole 20 or 40 mg oral twice daily Swallow whole. Do NOT crush, chew, or split tablet. 1503 (Given - Provider: Brigid Gunderson R.N.) 0609 (Given - Provider: Evan Cruz R.N., CCRN) sennosides-docusate sodium 8.6-50 mg per tablet 1 tablet (Senokot-S) 1 tablet, oral, 2 times daily, First dose on Wed08/14/24 at 2100, For constipation. Hold for diarrhea. 2127 (Given - Provider: Evan Cruz R.N., CCRN) 0856 (Given - Provider: Rosibel Lee R.N.) torsemide tablet 80 mg (Demadex) 80 mg, oral, Daily, First dose on Wed08/15/24 at 0900 0856 (Given - Provid er: Rosibel Lee R.N.) umeclidinium 62.5 mcg/actuation inhaler 1 puff (Incruse Ellipta) 1 puff, inhalation, Daily (RT), First dose on Wed08/15/24 at 0800, umeclidinium inhalation was interchanged for tiotropium respimat/handihaler 1. Hold device upright in right hand with rough edge. 2. Using left hand open lid (toward left) until click is heard. 3. Tilt inhaler flat so air entrainment vents & counter face up. 4. Inhale to full breath somewhat fast. 5. Hold breath up to 10 seconds. 6. Remove inhaler from mouth. 7. Close lid. 09 (Given - Provid er: Rosibel Lee R.N.) venlafaxine XR 24 hr capsule 150 mg (Effexor-XR) 150 mg, oral, Daily, First dose (after last modification) on Wed08/14/24 at 1400, Swallow whole. Do NOT crush, chew or open capsule. 1341 (Given - Provider: Brigid Gunderson RFrancesco) 0856 (Given - Provider: Rosibel Lee R.N.) PRN Medication Order 08/13/2024 08/14/2024 08/15/2024 albuterol nebulizer solution 2.5 mg 2.5 mg, nebulization, Every 4 hours PRN, shortness of breath, wheezing, Starting on Wed08/14/24 at 1253, Albuterol nebs were interchanged for albuterol MDI (same frequency) benzocaine-menthoL 15-3.6 mg per lozenge 1 lozenge (CepacoL) 1 lozenge, oral, 4 times daily PRN, sore throat, throat irritation, Starting on Wed08/14/24 at 1312 BUPivacaine-EPINEPHrine (PF) 0.25 %-1:200,000 injection (Marcaine w/Epi) (CANCELED) As needed, Starting on Wed08/14/24 at 0927, Intra-Op 0927 (Given - Provider: Aleksandra Peraza M.D.) calcium carbonate chewable tablet 400 mg of calcium (Tums) 400 mg of calcium, oral, Every 4 hours PRN, heartburn, indigestion, Starting on Wed08/14/24 at 1253, Doses listed are in mg of elemental calcium. Take with food. 500 mg calcium carbonate contains 200 mg of elemental calcium. ceFAZolin 1 g in NaCl 0.9% irrigation pour bottle (CANCELED) As needed, Starting on Wed08/14/24 at 1005, Intra-Op 1005 (Given - Provider: Aleksandra Peraza M.D.) chlorhexidine 0.12 % mouthwash 15 mL (Peridex) (COMPLETED) 15 mL, swish & spit, Once as needed, Chlorhexidine mouthwash (Peridex) should be given if patient did not complete oral care, if completion is greater than 4 hours prior to surgery or procedure start time and they do not have the opportunity to brush their teeth now (or at this time)., Starting on Wed08/14/24 at 0557, For 1 dose, Pre-Op, Instruct patient to swish entire content of Chlorhexidine 0.12% mouthwash (PERIDEX) 15 mL cup for 30 seconds, then spit, swish & spit. If patient is at risk for aspiration, apply Chlorhexidine 0.12% mouthwash to a swab and gently swab the patient's teeth and gums. Ensure swab is not oversaturated. 0647 (Given - Provider: Renea Parks RKavyaN.) fentaNYL injection 25 mcg (Sublimaze) (CANCELED) 25 mcg, intravenous, Every 2 min PRN, moderate pain or score 4-6 of 10, severe pain or score 7-10 of 10, Starting on Wed08/14/24 at 1045, PACU (only), Up to maximum total dose of 200 mcg 1102 (Given - Provider: Juventino OglesbyN.)1107 (Given - Provider: Agus Oglesby.N.)1152 (Given - Provider: Agus Oglesby.N.)1218 (Given - Provider: Dano Barboza R.N.) hydrALAZINE tablet 25 mg (Apresoline) 25 mg, oral, Every 6 hours PRN, Second-line (after labetalol): SBP >160 mmHg; hold for HR >100 BPM., Starting on Wed08/14/24 at 1253 ipratropium-albuteroL 0.5-2.5 mg/3 mL nebulizer solution 3 mL (DuoNeb) 3 mL, nebulization, 4 times daily PRN, wheezing, shortness of breath, Starting on Wed08/14/24 at 1253 labetaloL injection 10 mg 10 mg, intravenous, Every 10 min PRN, high blood pressure, SBP >160, hold for HR <60, Starting on Wed08/14/24 at 1253, . melatonin tablet 5 mg 5 mg, oral, Bedtime PRN, sleep, Starting on Wed08/14/24 at 1253 naloxone injection 0.2 mg (Narcan) 0.2 mg, intravenous, As needed, respiratory depression, Starting on Wed08/14/24 at 1253, For RASS Score -4 or less, respiratory rate of less than 8 breaths/min. Notify provider/service and rapid response team (if available at institution). ondansetron (PF) injection 4 mg (Zofran) 4 mg, intravenous, Every 6 hours PRN, nausea, vomiting, Starting on Wed08/14/24 at 1600, For 48 hours, Reassess for nausea or vomiting after at least 10 minutes. If nausea or vomiting persists administer next ordered antiemetic medications (order for antiemetic medication administration ondansetron then haloperidol then prochlorperazine). oxyCODONE IR tablet 10 mg (Roxicodone)(Linked Group 1) 10 mg, oral, Every 4 hours PRN, severe pain or score 7-10 of 10, or for pain greater than comfort goal, Starting on Wed08/14/24 at 1253 1317 (Given - Provider: Brigid Gunderson R.N.)1724 (Given - Provider: Brigid Gunderson R.N.)2128 (Given - Provider: Evan Cruz R.N., CCRN) 0152 (Given - Provider: Evan Cruz R.N., JUAN MIGUELN)0609 (Given - Provider: Evan Cruz R.N., CCRN) oxyCODONE IR tablet 5 mg (Roxicodone)(Linked Group 1) 5 mg, oral, Every 4 hours PRN, severe pain or score 7-10 of 10, Starting on Wed08/14/24 at 1253 1317 (See Alternative - Provider: Brigid Gunderson R.N.)1724 (See Alternative - Provider: Brigid Gunderson R.N.)2128 (See Alternative - Provider: Evan Cruz R.N., CCRN) 0152 (See Alternative - Provider: Evan Cruz R.N., CCRN)0609 (See Alternative - Provider: Evan Cruz R.N., CCRN) polyethylene glycol powder packet 17 g (Miralax) 17 g, oral, Daily PRN, constipation, Starting on Wed08/14/24 at 1253, Ordered sequence of administration: polyethylene glycol, then bisacodyl until BM achieved. Avoid mixing with starch-based thickened liquids., Indications: constipation prochlorperazine injection 5 mg (Compazine) 5 mg, intravenous, Every 6 hours PRN, vomiting, nausea, Starting on Wed08/14/24 at 1253, For 48 hours, RASS must be -2 or higher to administer. Reassess for nausea or vomiting after at least 10 minutes. If nausea or vomiting persists administer next ordered antiemetic medications (order for antiemetic medication administration ondansetron then haloperidol then prochlorperazine) Linked Groups Order Group 1: oxyCODONE IR tablet 5 mg (Roxicodone)Jump to med 5 mg, oral, Every 4 hours PRN, severe pain or score 7-10 of 10, Starting on Wed08/14/24 at 1253 Or oxyCODONE IR tablet 10 mg (Roxicodone)Jump to med 10 mg, oral, Every 4 hours PRN, severe pain or score 7-10 of 10, or for pain greater than comfort goal, Starting on Wed08/14/24 at 1253 documented in this encounter Additional Health Concerns Assessment Noted Time PHQ-9 Depression Total Score: 0 07/05/19 25 10:01 AM ADMINISTRATIVE SUPPORT COORDINATOR documented as of this encounter Care Teams Home Care Companion Relationship Specialty Start Date End Date Laly Dickey MPAS, P.A.-C. [address] [place] [phone] PCP - General Internal Medicine 07/28/22 documented as of this encounter
--- OUTSIDE RECORDS SUMMARY | 2024-08-15 14:11 | XMS_ITS | Encounter Summary ---
Author Organization [facility] Address [address] [place] [phone] Care Team Providers Care Hair Preparer Name Role Phone Laly Dickey P.A.-C. Primary Care Pro vider Reason for Visit * Reason Comments Consult * Outpatient (Routine) - Closed Specialty Diagnoses / Procedures Referred By Nemo morales Referred To Contact General Surgery Diagnoses Hydrocephalus Normal Pressure (HCC) Preoperative Exam Agustin Granda M.D., Ph.D. [address] [place] [phone] Phone: tel: fax: [facility] Referral ID Status Reason Start Date Expiration Date V isits Requested Visits Authorized [id number] Closed Specialty Services Required 04/24/2024 10/24/2025 1 1 Encounter Details Date Type Department Care Team (Latest Contact Info) Description 08/10/2024 1:30 PM CDT Comprehensive Visit Division of Trauma Critical Care and General Surgery in [place], [place] [address] [place] [phone] Agustin Granda M.D., Ph.D. [address] [place] [phone] Aaliyah Lazo M.D. [address] [place] [phone] Hydrocephalus Normal Pressure (HCC) (Primary Dx); Preoperative Exam Social History Tobacco Use Types Packs/Day Years Used Date Smoking Tobacco: Former Cigarettes 2 30 0 11/13/1975 - 11/12/2005 Passive Smoke Exposure: Past Smokeless Tobacco: Never Comments:Quit smoking in 200 3 Alcohol Use Standard Drinks/Week Comments Not Currently 0 (1 standard drink = 0.6 oz pur e alcohol) [facility] Utilities Answer Date Recorded In the past 12 months has e [employer], gas, oil, or water company threatened to [...] living situation today? I have a [facility] place to live 06/23/2024 Comments No Sex and Gender Information Value Date Recorded Sex Assigned at Female 03/19/2023 10:10 AM CDT Legal Sex Female 1:31 PM PRESS CLIPPINGS CUTTER AND PASTER Gender Identity Female 03/19/2023 10:10 AM CDT Sexual Orientation Not on file documented as of this encounter Consult Notes * Diego Bullard D.O. - 08/10/2024 1:30 PM CDT SUBJECTIVE CHIEF COMPLAINT / REASON FOR VISIT Anna Ortega is a 69 y.o. female presenting in referral from Agustin Granda M.D.,* for consultation in the evaluation of BULB PLANTER shunt placement for NPH. HISTORY OF PRESENT ILLNESS is a 69F who presents for evaluation of BULB PLANTER shunt placement in the setting of NPH. She has experienced a functional decline over the last several years, and is scheduled for surgery 08/11.Significant surgical history for an appendectomy, , and oophorectomy. On presentation she was resting comfortable in a wheelchair. All questions answered by our service. Medical & Surgical History appendectomy Oophorectomy Type 2 diabetes COPD and excellent CKD 3B HFpEF JOSIAH Pertinent Medications Torsemide Ozempic Losartan The following portions of the patient's history were reviewed and updated as appropriate: allergies, current medications, family history, medical history, social history, surgical history, and problem list. REVIEW OF SYSTEMS Pertinent ROS in HPI OBJECTIVE PHYSICAL EXAM GEN: NAD ABD: Soft, non-distended, non-tender CV: Regular rate PULM: Unlabored on RA ENT: Normocephalic, atraumatic ASSESSMENT / PLAN #1 Hydrocephalus Normal Pressure (HCC) After discussion with our team she is amenable to our portion of BULB PLANTER shunt placement. We are grateful to our colleagues in [place] to assist in the care of Mrs. Ortega on Monday 08/14. Risks of the surgery were discussed, and consent signed. Case discussed with Dr. Lazo. Diego Bullard D.O. * Joseph Pickett M.B.BKavyaS. - 08/10/2024 1:30 PM CDT History and Physical CHIEF COMPLAINT/REASON FOR VISIT: Preop evaluation of laparoscopic access for BULB PLANTER shunt placement Referring Provider: Agustin Granda M.D.,* SUBJECTIVE Anna Ortega is a 69 y.o. female who presents for evaluation of laparoscopic access for BULB PLANTER shunt placement by Dr. Granda. 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 Ortega is a 69-year-old female who presented to our clinic today for preop evaluation of laparoscopic access for a BULB PLANTER shunt. Her surgery was scheduled on 08/15. [...] complications from anesthesia. We discussed that at [facility] there is a full team incorporated into patient care, and the patient acknowledges that others will be involved in their care. The patient understands that the staff surgeon may be participating in another operative procedure during non-critical portions of their procedure,and that a qualified surgeon will be available if needed. We discussed about the group practice of a [facility] General surgery as well. We discussed hospital [...] MOUTH DAILY, Disp: 90 capsule, Rfl: 3 * Aaliyah Lazo M.D. - 08/10/2024 1:30 PM CDT SUBJECTIVE CHIEF COMPLAINT / REASON FOR VISIT Anna Ortega is a 69 y.o. female presenting in referral from Agustin Granda M.D.,* for consultation in the evaluation of normal pressure hydrocephalus. HISTORY OF PRESENT ILLNESS Patient with history of normal pressure hydrocephalus. Laparoscopic-assisted placement of a ventriculoperitoneal shunt is scheduled for August 14, 2024. Patient has had no previous upper abdominal surgery. No blood thinners. She does have chronic kidney disease, type 2 diabetes mellitus, obstructivesleep apnea, obesity and COPD. Previous section remotely and ovarian cyst removal. Review of systems: Reviewed and are negative except as noted above in the HPI. PHYSICAL EXAM Weight 103 kg. Abdomen is obese, soft and nontender. No upper abdominal scars. ASSESSMENT / PLAN Normal pressure hydrocephalus Plan Laparoscopic-assisted placement of a ventriculoperitoneal shunt is scheduled for August 14, 2024. Wewill be available to assist with the abdominal portion of the procedure. Risks, benefits and indications were discussed with the patient and family. She appears to understand these issues and agrees to proceed. Patient was seen and evaluated with the [facility] surgical service B senior resident. I agree with his findings, documentation and plan of management. documented in this encounter Plan of Treatment Upcoming Encounters Date Type Department Care Team (Late st Contact Info) Description 09/20/2024 3:00 PM CDT Appointment Department of Neurology in [address] [phone] Carmen Petit APRN, C.N.P., M.S.N. [address] [place] [phone] 09/20/2024 3:45 PM CDT Appointment Department of Radiology, [facility], in [address] [phone] Carmen Petit APRN, C.N.P., M.S.N. [address] [place] [phone] 09/21/2024 9:30 AM CDT Office Visit Department of Neurologic Surgery in [address] [phone] Ashley Watts P.A.-C. [address] [place] [phone] 10/09/2024 9:30 AM CDT Office Visit Department of Otorhinolaryngology in [address] [phone] Montserrat Jacobs M.D. 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 [address] [facility] [place] [facility] [phone] PCP - General Internal Medicine 07/28/22 documented as of this encounter
--- OUTSIDE RECORDS SUMMARY | 2024-08-15 14:11 | XMS_ITS | Encounter Summary ---
Author Organization [facility] Address [address] [place] [address] Care Team Providers Care Remote Mortgage Underwriter Name Role Phone Laly Dickey P.A.-C. Primary Care Pro vider Reason for Referral * MRI/CAT/PET Scan (Routine) - Closed Specialty Diagnoses / Procedures Referred By Nemo morales Referred To Contact Radiology Diagnoses Hydrocephalus Normal Pressure (HCC) Preoperative Exam Procedures CT Stereotactic Localization Agustin Granda M.D., Ph.D. [address] [place] [address] Phone: tel: fax: [facility] Referral ID Status Reason Start Date Expiration Date Visits Re quested Visits Authorized [id number] Closed 04/24/2024 04/24/2025 1 1 Reason for Visit * Auth/Cert (Routine) Specialty Diagnoses / Procedures Referred By Nemo morales Referred To Contact Diagnoses Hydrocephalus Normal Pressure (HCC) Hydrocephalus Normal Pressure (HCC) [G91.2]. Procedures ventriculoperitoneal shunt placement. LAPAROSCOPIC EXPLORATION, DIAGNOSTIC. Referral ID Status Reason Start Date Expiration Date Visits Re quested Visits Authorized [id number] 1 1 Encounter Details Date Type Department Care Team (Latest Contact Info) Description 08/14/2024 6:59 AM CDT - 08/14/2024 11:59 PM CDT Hospital Encounter Department of Radiology, [facility], in [place], [place] [address] [place] [phone] Agustin Granda M.D., Ph.D. [address] [place] [phone] Hydrocephalus Normal Pressure (HCC); Preoperative Exam Discharge Disposition: Home or Self Care Social History Tobacco Use Types Packs/Day Years Used Date Smoking Tobacco: Former Cigarettes 2 30 0 11/13/1975 - 11/12/2005 Passive Smoke Exposure: Past Smokeless Tobacco: Never Comments:Quit smoking in 200 3 Alcohol Use Standard Drinks/Week Comments Not Currently 0 (1 standard drink = 0.6 oz pur e alcohol) [facility] Utilities Answer Date Recorded In the past 12 months has e [employer], gas, oil, or water [employer] threatened to shut off services in your [...] [facility] 08/14/2024 Comments No Sex and Gender Information Value Date Recorded Sex Assigned at Female 03/19/2023 10:10 AM CDT Legal Sex Female 1:31 PM HOUSING MANAGEMENT REPRESENTATIVE Gender Identity Female 03/19/2023 10:10 AM CDT Sexual Orientation Not on file documented as of this encounter Functional Status * Intimate Partner Violence Question Answer Date of Assessment Author Within the last year, have y ou been humiliated or emotionally abused in other ways by your partner or ex-partner? No 08/14/2024 7:26 PM CDT Evan Cruz, RKavyaN., CCRN Within the last year, have y ou been afraid of your partner or ex-partner? No 08/14/2024 7:26 PM DIONET Evan Cruz, Diane., CCRN Within the last year, have y ou been raped or forced to have any kind of sexual activity by your partner or ex-partner? No 08/14/2024 7:26 PM DIONET Charles Cruz R.N., CCRN Within the last year, have y ou been kicked, hit, slapped, or otherwise physically hurt by your partner or ex-partner? No 08/14/2024 7:26 PM CDT Charles Cruz R.N., CCRN documented as of this encounter Medications at [...] 18 tablet 08/15/2024 10:20 AM CDT 08/14/2024 polyethylene glycol (MIRALAX) 17 gram/dose oral powder [...] Indications: Chronic Pain/Nonacute Pain. 56 tablet 07/24/2024 5 venlafaxine XR (EFFEXOR-XR) 150 mg 24 hr capsule TAKE 1 CAPSULE(150 MG) BY MOUTH DAILY 90 capsule 3 08/02/2023 documented as of this encounter Plan of Treatment Upcoming Encounters Date Type Department Care Team (Late st Contact Info) Description 09/20/2024 3:00 PM CDT Appointment Department of Neurology in [place], [place] [address] [place] [phone] Carmen Petit APRN, C.N.P., M.S.N. [address] [place] [phone] 09/20/2024 3:45 PM CDT Appointment Department of Radiology, [facility], in [place], [place] [address] [place] [phone] Carmen Petit APRN, C.N.P., M.S.N. [address] [place] [phone] 09/21/2024 9:30 AM CDT Office Visit Department of Neurologic Surgery in [place], [place] [address] [place] [phone] Ashley Watts P.A.-C. [address] [place] [phone] 10/09/2024 9:30 AM CDT Office Visit Department of Otorhinolaryngology in [address] [phone] Montserrat Jacobs M.D. 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 IMG CT PROCEDURES F inal Result documented in this encounter Visit Diagnoses Diagnosis Hydrocephalus Normal Pressure (HCC) Preoperative Exam documented in this encounter Additional Health Concerns Assessment Noted Time PHQ-9 Depression Total Score: 0 07/05/19 25 10:01 AM HOUSING MANAGEMENT REPRESENTATIVE documented as of this encounter Care Teams Remote Mortgage Underwriter Relationship Specialty Start Date End Date Laly Dickey MPAS, P.A.-C. [address] [place] [phone] PCP - General Internal Medicine 07/28/22 documented as of this encounter
--- OUTSIDE RECORDS SUMMARY | 2024-08-15 14:11 | XMS_ITS | Encounter Summary ---
Author Organization [facility] Address [address] [place] [address] Care Team Providers Care Aboriginal Community Council Member Name Role Phone Laly Dickey P.A.-C. Primary Care Pro vider Encounter Details Date Type Department Care Team (Late st Contact Info) Description 08/09/2024 2:05 PM CDT Ancillary Procedure Department of Neurology Social History Tobacco Use Types Packs/Day Years Used Date Smoking Tobacco: Former Cigarettes 2 30 0 11/13/1975 - 11/12/2005 Passive Smoke Exposure: Past Smokeless Tobacco: Never Comments:Quit smoking in 200 3 Alcohol Use Standard Drinks/Week Comments Not Currently 0 (1 standard drink = 0.6 oz pur e alcohol) [facility] Utilities Answer Date Recorded In the past 12 months has [facility] [employer], gas, oil, or water [employer] threatened to shut off services in your [...] your living situation today? I have a [facility] [employer] [employer] place to live 06/23/2024 Comments No Sex and Gender Information Value Date Recorded Sex Assigned at Female 03/19/2023 10:10 AM CDT Legal Sex Female 1:31 PM CODING COMPLIANCE MANAGER Gender Identity Female 03/19/2023 10:10 AM CDT Sexual Orientation Not on file documented as of this encounter Plan of Treatment Upcoming Encounters Date Type Department Care Team (Late st Contact Info) Description 09/20/2024 3:00 PM CDT Appointment Department of Neurology in [place], [place] [address] [place] [phone] Carmen Petit APRN, C.N.P., M.S.N. [address] [place] [phone] 09/20/2024 3:45 PM CDT Appointment Department of Radiology, [facility] in [place], [place] [address] [place] [phone] Carmen Petit APRN, C.N.P., M.S.N. [address] [place] [phone] 09/21/2024 9:30 AM CDT Office Visit Department of Neurologic Surgery in [place], [place] [address] [place] [phone] Ashley Watts P.A.-C. [address] [place] [phone] 10/09/2024 9:30 AM CDT Office Visit Department of Otorhinolaryngology in [place], [place] [address] [place] [phone] Montserrat Jacobs M.D. 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 The clinical documentation to support these images can be found on the encounter that produced images. us Provider Not In System IMG NON RAD IMAGING PROCE DURES Final Result IIMS NA documented in this encounter Visit Diagnoses Not on filedocumented in this encounter Additional Health Concerns Assessment Noted Time PHQ-9 Depression Total Score: 0 07/05/19 25 10:01 AM CODING COMPLIANCE MANAGER documented as of this encounter Care Teams Aboriginal Community Council Member Relationship Specialty Start Date End Date Laly Dickey MPAS, P.A.-C. [address] [place] [address] [place] [phone] PCP - General Internal Medicine 07/28/22 documented as of this encounter
--- OUTSIDE RECORDS SUMMARY | 2024-08-15 14:11 | XMS_ITS | Encounter Summary ---
Author Organization [facility] Address [address] [place] [phone] Care Team Providers Care Prenatal Nurse Name Role Phone Laly Dickey P.A.-C. Primary Care Pro vider Encounter Details Date Type Department Care Team (Late st Contact Info) Description 07/17/2024 Results Follow-Up [facility] [address] [place] [phone] Mona Sneed M.D., M.H.A. [address] [place] [phone] Bacteria / Cherry Culture, Blood #1, Bacteria / Cherry Culture, Blood #2, Fungal Culture, Routine Social History Tobacco Use Types Packs/Day Years Used Date Smoking Tobacco: Former Cigarettes 2 30 0 11/13/1975 - 11/12/2005 Passive Smoke Exposure: Past Smokeless Tobacco: Never Alcohol Use Standard Drinks/Week Comments Not Currently 0 (1 standard drink = 0.6 oz pur e alcohol) [facility] Utilities Answer Date Recorded In the [...] your living situation today? I have a [facility] place to live 06/23/2024 Comments No Sex and Gender Information Value Date Recorded Sex Assigned at Female 03/19/2023 10:10 AM CDT Legal Sex Female 1:31 PM PRINCIPAL JAVA SOFTWARE ENGINEER Gender Identity Female 03/19/2023 10:10 AM CDT Sexual Orientation Not on file documented as of this encounter Plan of Treatment Upcoming Encounters Date Type Department Care Team (Late st Contact Info) Description 09/20/2024 3:00 PM CDT Appointment Department of Neurology in [address] [phone] Carmen Petit APRN, C.NKavyaP., M.S.N. [address] [place] [phone] 09/20/2024 3:45 PM CDT Appointment Department of Radiology, [facility] in [address] [phone] Carmen Petit APRN, C.N.P., M.S.N. [address] [place] [phone] 09/21/2024 9:30 AM CDT Office Visit Department of Neurologic Surgery in [address] [phone] Ashley Watts P.A.-C. [address] [place] [phone] 10/09/2024 9:30 AM CDT Office Visit Department of Otorhinolaryngology in [address] [phone] Montserrat Jacobs M.D. [address] [place] [phone] Scheduled Procedures Name Priority Associated Diagnoses Date/Ti me ARTHROPLASTY TOTAL REVERSE SHOULDER Fracture 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 documented as of this encounter Visit Diagnoses Not on filedocumented in this encounter Additional Health Concerns Assessment Noted Time PHQ-9 Depression Total Score: 0 07/05/19 25 10:01 AM PRINCIPAL JAVA SOFTWARE ENGINEER documented as of this encounter Care Teams Prenatal Nurse Relationship Specialty Start Date End Date Laly Dickey MPAS, P.A.-C. [address] [place] [phone] PCP - General Internal Medicine 07/28/22 documented as of this encounter
--- OUTSIDE RECORDS SUMMARY | 2024-08-15 14:12 | XMS_ITS | Encounter Summary ---
Author Organization [facility] Address [address] [place] [phone] Care Team Providers Care Aircraft Quality Control Inspector Name Role Phone Laly Dickey P.A.-C. Primary Care Pro vider Reason for Referral * Outpatient (Routine) - Authorized Specialty Diagnoses / Procedures Referred By Nemo t Referred To Contact Neurological Surgery Diagnoses Hydrocephalus Normal Pressure (HCC) Carmen Petit APRN C.N.P., M.S.N. [address] [place] [phone] Phone: tel: fax: Ashley Watts P.A.-Radha [address] [place] [phone] Phone: tel: fax: Referral ID Status Reason Start Date Expiration Date V isits Requested Visits Authorized [id number] Authorized 08/14/2024 02/13/2026 1 1 * MRI/CAT/PET Scan (Routine) - Authorized Specialty Diagnoses / Procedures Referred By Contac t Referred To Contact Radiology Diagnoses Hydrocephalus Normal Pressure (HCC) Procedures CT Head without IV Contrast Carmen Petit APRN, C.N.P., M.S.N. [address] [place] [phone] Phone: tel: fax: [facility] Referral ID Status Reason Start Date Expiration Date V isits Requested Visits Authorized [id number] Authorized 08/14/2024 11/14/2025 1 1 * Outpatient (Routine) - Authorized Specialty Diagnoses / Procedures Referred By Contac t Referred To Contact Diagnoses Hydrocephalus Normal Pressure (HCC) Procedures Neurology Gait Disorders Laboratory Hydrocephalus Carmen Petit APRN C.N.P., M.S.N. [address] [place] [phone] Phone: tel: fax: [facility] Referral ID Status Reason Start Date Expiration Date V isits Requested Visits Authorized [id number] Authorized 08/14/2024 11/14/2025 1 1 Reason for Visit * Reason Onset Date Comments Post Hospital Follow-up 08/14/2024 Encounter Details Date Type Department Care Team (Latest Contact Info) Description 08/14/2024 Clinical Communication [facility] [address] [place] [phone] Agustin Granda M.D., Ph.D. [address] [place] [phone] Post Hospital Follow-up Social History Tobacco Use Types Packs/Day Years Used Date Smoking Tobacco: Former Cigarettes 2 30 0 11/13/1975 - 11/12/2005 Passive Smoke Exposure: Past Smokeless Tobacco: Never Comments:Quit smoking in 200 3 Alcohol Use Standard Drinks/Week Comments Not Currently 0 (1 standard drink = 0.6 oz pur e alcohol) [facility] Utilities Answer Date Recorded In the past 12 months has [employer] gas, oil, or water [employer] threatened to shut off services in your [...] I have a [place] place to live 08/14/2024 Comments No Sex and Gender Information Value Date Recorded Sex Assigned at Female 03/19/2023 10:10 AM CDT Legal Sex Female 1:31 PM SERVICING MANAGER Gender Identity Female 03/19/2023 10:10 AM CDT Sexual Orientation Not on file documented as of this encounter Functional Status * Intimate Partner Violence Question Answer Date of Assessment Author Within the last year, have y ou been humiliated or emotionally abused in other ways by your partner or ex-partner? No 08/14/2024 7:26 PM CDT Evan Cruz R.N., JUAN MIGUELN Within the last year, have y ou been afraid of your partner or ex-partner? No 08/14/2024 7:26 PM CDT Evan Cruz R.N., CCRN Within the last year, have y ou been raped or forced to have any kind of sexual activity by your partner or ex-partner? No 08/14/2024 7:26 PM CDT Charles Cruz R.N., CCRN Within the last year, have y ou been kicked, hit, slapped, or otherwise physically hurt by your partner or ex-partner? No 08/14/2024 7:26 PM CDT Charles Cruz R.N., CCRN documented as of this encounter Plan of Treatment Upcoming Encounters Date Type Department Care Team (Late st Contact Info) Description 09/20/2024 3:00 PM CDT Appointment Department of Neurology in [place], [place] 200 [place] [phone] Carmen Petit, [place], C.N.P., M.S.N. 200 [place] [phone] 09/20/2024 3:45 PM CDT Appointment Department of Radiology, [facility] in [place], [place] [address] [place] [phone] Carmen Petit APRN, C.N.P., M.S.N. [address] [place] [phone] 09/21/2024 9:30 AM CDT Office Visit Department of Neurologic Surgery in [place], [place] [address] [place] [phone] Ashley Watts P.A.-CKavya [address] [place] [phone] 10/09/2024 9:30 AM CDT Office Visit Department of Otorhinolaryngology in [place], [place] [address] [place] [phone] Montserrat Jacobs M.D. 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 Scheduled Referrals Name Type Priority Associated Diagnoses Order Schedule Neurological Surgery Post Op (clinic) Outpatient Referral Routine Hydrocephalus Normal Pressure (HCC) Expected: 09/14/2024, Expires: 11/14/2025 documented as of this encounter Visit Diagnoses Diagnosis Hydrocephalus Normal Pressure (HCC)- Primary documented in this encounter Additional Health Concerns Assessment Noted Time PHQ-9 Depression Total Score: 0 07/05/19 25 10:01 AM SERVICING MANAGER documented as of this encounter Care Teams Aircraft Quality Control Inspector Relationship Specialty Start Date End Date Laly Dickey MPAS, P.A.-C. [address] [place] [phone] PCP - General Internal Medicine 07/28/22 documented as of this encounter
--- OUTSIDE RECORDS SUMMARY | 2024-08-15 14:12 | XMS_ITS | Encounter Summary ---
Author Organization [facility] Address [address] [place] [address] Care Team Providers Care Route Driver Coin Machines Name Role Phone Laly Dickey P.A.-C. Primary Care Pro vider Encounter Details Date Type Department Care Team (Late st Contact Info) Description 07/03/2024 Clinical Communication Department of Neurologic Surgery in [place], [place] [address] [place] [phone] Brina Rcih, RKavyaN. Social History Tobacco Use Types Packs/Day Years Used Date Smoking Tobacco: Former Cigarettes 2 30 0 11/13/1975 - 11/12/2005 Passive Smoke Exposure: Past Smokeless Tobacco: Never Alcohol Use Standard Drinks/Week Comments Not Currently 0 (1 standard drink = 0.6 oz pur e alcohol) [facility] Utilities Answer Date Recorded In the past 12 months has [facility] [employer], gas, oil, or water [employer] threatened to shut off services in your [...] living situation today? I have a [facility] place to live 06/23/2024 Comments No Sex and Gender Information Value Date Recorded Sex Assigned at Female 03/19/2023 10:10 AM CDT Legal Sex Female 1:31 PM MINIATURE SET DESIGNER Gender Identity Female 03/19/2023 10:10 AM CDT Sexual Orientation Not on file documented as of this encounter Miscellaneous Notes * Telephone Encounter - Brina Rich R.N. - 08/10/2024 3:26 PM CDT SUBJECTIVE CHIEF COMPLAINT / REASON FOR CALL No chief complaint on file. Information Discussed I spoke with Ivy, patient's daughter. They met with ENT today, and they were told she can proceed with her WASTEWATER PROCESS ENGINEER shunt surgery with Dr. Granda on Wednesday next week. There is no signs of infection. ENT will re-evaluate her after her shunt surgery for further treatment. PLAN Disposition/Recommendation: recommended continue engagement in self-management activities Information/Education: patient/caller able to teach back Caller agreeable to plan of care: yes The following references were used: nursing clinical judgement * Telephone Encounter - Agatha Silva R.N., CNRN - 08/03/2024 4:18 PM MINIATURE SET DESIGNER SUBJECTIVE CHIEF COMPLAINT / REASON FOR CALL No chief complaint on file. PLAN The following information was provided: I contacted Ivy to get an update on her mom's parotid diagnosis/issues. She reports that this past Tuesday 08/01 she was seen by a provider in a clinic not associated with [place]. She is wanting to switch providers. Dr. Mcgovern is who she saw and he put in a referral for her to be seen by an ENT team here at [facility] hopefully prior to surgery with Dr. Granda on 08/13. She was started on antibiotics again this past Wednesday as the swelling had returned. The CT scan she had done at her outside hospital on 07/17 did not show parotitis but the patient said they are still palpating her parotid as being hard, and her new PCP Dr. Mcgovern is thinking perhaps ENT will need to open up the parotid. But she is not sure. Daughter informs me that her mother's labs are all reassuring and negative for infection. ENT triage was approved. Daughter is going to try and call them to get it scheduled here now. She has their number from yesterday. Information/Education: patient/caller able to teach back The following references were used: nursing clinical judgement ATURE SET DESIGNER * Telephone Encounter - Hiral Hill - 07/26/2024 2:35 PM CST The patient's daughter, Ivy Stewart, was transferred into ENT after multiple transfers to different areas around [place]. She ultimately ended up in ENT as one of our residents was on the critical care team in May. Triny is requesting to speak with her mom's care team regarding concerns with swelling and WASTEWATER PROCESS ENGINEER shunt placement by Dr. Granda on 08/14/2024. She states after being on antibiotics previously for 10 days,the swelling returned at about day 7. She is concerns of this starting again and the upcoming procedure. If you could please reach out to Triny at [phone] to discuss further and/or assist with directing to the appropriate care team, if required. She is anxious to hear back, today if possible. Thank you. ATURE SET DESIGNER ATURE SET DESIGNER ATURE SET DESIGNER * Telephone Encounter - Brina Rich R.N. - 07/03/2024 12:23 PM MINIATURE SET DESIGNER SUBJECTIVE CHIEF COMPLAINT / REASON FOR CALL No chief complaint on file. Information Discussed I spoke with patient's daughter, Triny, on the phone. She tells me that Anna has finished her antibiotics but still has a lump under her jaw line. She also was told her hold her aspirin for 7 days before surgery and took her aspirin yesterday. Surgery is 07/06/23. Reviewed with Dr. Granda, and he said that since she took her aspirin yesterday, we will need to reschedule her surgery. Her new surgery date will be August 14. Reminded Triny to review her list of medications to hold for 7 days before surgery. We had emailed this list to her, and she still has it so will review with Anna again. PLAN Disposition/Recommendation: recommended continue engagement in self-management activities Information/Education: patient/caller able to teach back Caller agreeable to plan of care: yes The following references were used: nursing clinical judgement ATURE SET DESIGNER documented in this encounter Plan of Treatment Upcoming Encounters Date Type Department Care Team (Late st Contact Info) Description 09/20/2024 3:00 PM CDT Appointment Department of Neurology in [address] [phone] Carmen Petit APRN, C.N.P., M.S.N. [address] [place] [phone] 09/20/2024 3:45 PM CDT Appointment Department of Radiology, [facility] in [address] [phone] Carmen Petit APRN, Sommer.N.P., M.S.N. [address] [place] [phone] 09/21/2024 9:30 AM CDT Office Visit Department of Neurologic Surgery in [address] [phone] Ashley Watts P.A.-C. [address] [place] [phone] 10/09/2024 9:30 AM CDT Office Visit Department of Otorhinolaryngology in [address] [phone] Montserrat Jacobs M.D. 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 [address] [place] [phone] PCP - General Internal Medicine 07/28/22 documented as of this encounter
--- OUTSIDE RECORDS SUMMARY | 2024-08-15 14:12 | XMS_ITS | Encounter Summary ---
Author Organization [facility] Address [address] [place] [address] Care Team Providers Care Buck Presser Name Role Phone Laly Dickey P.A.-C. Primary Care Pro vider Encounter Details Date Type Department Care Team (Late st Contact Info) Description 06/26/2024 Clinical Communication Department of Neurologic Surgery in [place], [place] [address] [place] [phone] Agustin Granda M.D., Ph.D. [address] [place] [phone] Social History Tobacco Use Types Packs/Day Years Used Date Smoking Tobacco: Former Cigarettes 2 30 0 11/13/1975 - 11/12/2005 Passive Smoke Exposure: Past Smokeless Tobacco: Never Alcohol Use Standard Drinks/Week Comments Not Currently 0 (1 standard drink = 0.6 oz pur e alcohol) [facility] Utilities Answer Date Recorded In the [...] your living situation today? I have a [facility] place to live 06/23/2024 Comments No Sex and Gender Information Value Date Recorded Sex Assigned at Female 03/19/2023 10:10 AM CDT Legal Sex Female 1:31 PM CONCHE OPERATOR Gender Identity Female 03/19/2023 10:10 AM CDT Sexual Orientation Not on file documented as of this encounter Miscellaneous Notes * Telephone Encounter - Brina Rich R.N. - 06/27/2024 9:41 AM CONCHE OPERATOR SUBJECTIVE CHIEF COMPLAINT / REASON FOR CALL No chief complaint on file. Information Discussed I spoke with patient's daughter, Triny. Anna will be done with her antibiotics on 06/30. She continues to have some swelling in her cheek where the infection was. Dr. Granda said that as long as she is done with her antibiotics, he will proceed with surgery on July 06. Triny will monitor the swelling over the weekend. We discussed that Triny should give me a call Wednesday to discuss if her swelling has gone down. If it has not, I will reach out to Dr. Granda to see if he wants her to get any additional labs done theday before surgery or if he wants to postpone her surgery. PLAN Disposition/Recommendation: recommended continue engagement in self-management activities Information/Education: patient/caller able to teach back Caller agreeable to plan of care: yes The following references were used: nursing clinical judgement HE OPERATOR documented in this encounter Plan of Treatment Upcoming Encounters Date Type Department Care Team (Late st Contact Info) Description 09/20/2024 3:00 PM CDT Appointment Department of Neurology in [place], [place] [address] [place] [phone] Carmen Petit APRN, C.N.P., M.S.N. [address] [place] [phone] 09/20/2024 3:45 PM CDT Appointment Department of Radiology, [facility], in [place], [place] [address] [place] [phone] Carmen Petit APRN, C.N.P., M.S.N. [address] [place] [phone] 09/21/2024 9:30 AM CDT Office Visit Department of Neurologic Surgery in [place], [place] [address] [place] [phone] Ashley Watts P.A.-C. [address] [place] [phone] 10/09/2024 9:30 AM CDT Office Visit Department of Otorhinolaryngology in [place], [place] [address] [place] [phone] Montserrat Jacobs M.D. 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 [address] [place] [phone] PCP - General Internal Medicine 07/28/22 documented as of this encounter
--- OUTSIDE RECORDS SUMMARY | 2024-08-15 14:12 | XMS_ITS | Encounter Summary ---
Author Organization [facility] Address [address] [place] [address] Care Team Providers Care Enlisted Aircrew/Aerial Observer/Gunner Name Role Phone Laly Dickey, P.A.-C. Primary Care Pro vider Reason for Referral * Outpatient (Routine) - Closed Specialty Diagnoses / Procedures Referred By Nemo morales Referred To Contact Community Internal Medicine Laly Dickey MPAS, P.A.-C. 300 [facility] [place] [address] Phone: tel: fax: [facility] Referral ID Status Reason Start Date Expiration Date Visits Re quested Visits Authorized [id number] Closed 07/04/2024 01/03/2026 1 1 R SITE ASSESSMENT SPECIALIST Reason for Visit * Reason Onset Date Comments Communication 07/04/2024 Encounter Details Date Type Department Care Team (Late st Contact Info) Description 07/04/2024 Clinical Communication Department of Community Internal Medicine in [place], [place] 300 [place] [address] Laly Dickey MPAS, Cristobal.A.-C. 300 [facility] [place] [address] Communication Social History Tobacco Use Types Packs/Day Years Used Date Smoking Tobacco: Former Cigarettes 2 30 0 11/13/1975 - 11/12/2005 Passive Smoke Exposure: Past Smokeless Tobacco: Never Alcohol Use Standard Drinks/Week Comments Not Currently 0 (1 standard drink = 0.6 oz pur e alcohol) [facility] Utilities Answer Date Recorded In the [...] your living situation today? I have a [facility] place to live 06/23/2024 Comments No Sex and Gender Information Value Date Recorded Sex Assigned at Female 03/19/2023 10:10 AM CDT Legal Sex Female 1:31 PM SOLAR SITE ASSESSMENT SPECIALIST Gender Identity Female 03/19/2023 10:10 AM CDT Sexual Orientation Not on file documented as of this encounter Plan of Treatment Upcoming Encounters Date Type Department Care Team (Late st Contact Info) Description 09/20/2024 3:00 PM CDT Appointment Department of Neurology in [place], [place] [address] [place] [phone] Carmen Petit APRN, C.N.P., M.S.N. [address] [place] [phone] 09/20/2024 3:45 PM CDT Appointment Department of Radiology, [facility], in [place], [place] [address] [place] [phone] Carmen Petit APRN, C.N.P., M.S.N. [address] [place] [phone] 09/21/2024 9:30 AM CDT Office Visit Department of Neurologic Surgery in [place], [place] [address] [place] [phone] Ashley Watts P.A.-C. [address] [place] [phone] 10/09/2024 9:30 AM CDT Office Visit Department of Otorhinolaryngology in [place], [place] [address] [place] [address] Montserrat Jacobs M.D. 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 [address] [place] [phone] PCP - General Internal Medicine 07/28/22 documented as of this encounter
--- OUTSIDE RECORDS SUMMARY | 2024-08-15 14:12 | XMS_ITS | Encounter Summary ---
Author Organization [facility] Address [address] [place] [address] Care Team Providers Care Vegetable Specker Name Role Phone Laly Dickey P.A.-CKavya Primary Care Pro vider Encounter Details Date Type Department Care Team (Late st Contact Info) Description 07/05/2024 Clinical Communication Department of Community Internal Medicine in [place], [place] 300 [place] [address] Laly Dickey MPAS PKavyaA.-CKavya 300 [place] [address] Social History Tobacco Use Types Packs/Day Years Used Date Smoking Tobacco: Former Cigarettes 2 30 0 11/13/1975 - 11/12/2005 Passive Smoke Exposure: Past Smokeless Tobacco: Never Alcohol Use Standard Drinks/Week Comments Not Currently 0 (1 standard drink = 0.6 oz pur e alcohol) [facility] Utilities Answer Date Recorded [...] your living situation today? I have a [facility] place to live 06/23/2024 Comments No Sex and Gender Information Value Date Recorded Sex Assigned at Female 03/19/2023 10:10 AM CDT Legal Sex Female 1:31 PM PERINATAL TECH Gender Identity Female 03/19/2023 10:10 AM CDT Sexual Orientation Not on file documented as of this encounter Plan of Treatment Upcoming Encounters Date Type Department Care Team (Late st Contact Info) Description 09/20/2024 3:00 PM CDT Appointment Department of Neurology in [address] [phone] Carmen Petit APRN C.N.P., M.S.N. [address] [place] [phone] 09/20/2024 3:45 PM CDT Appointment Department of Radiology, [facility], in [address] [phone] Carmen Petit APRN, C.N.P., M.S.N. [address] [place] [phone] 09/21/2024 9:30 AM CDT Office Visit Department of Neurologic Surgery in [address] [phone] Ashley Watts P.A.-C. [address] [place] [phone] 10/09/2024 9:30 AM CDT Office Visit Department of Otorhinolaryngology in [address] [phone] Montserrat Jacobs M.D. 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 300 [facility] [place] [phone] PCP - General Internal Medicine 07/28/22 documented as of this encounter
--- OUTSIDE RECORDS SUMMARY | 2024-08-15 14:12 | XMS_ITS | Encounter Summary ---
Author Organization [facility] Address [address] [place] [address] Care Team Providers Care Dehydrating Press Operator Name Role Phone Laly Dickey P.A.-C. Primary Care Pro vider Encounter Details Date Type Department Care Team (Late st Contact Info) Description 07/03/2024 Clinical Communication Section of Infectious Diseases in [place], [place] [address] [place] [phone] Nunu Peters M.B.B.S. [address] [place] [phone] Social History Tobacco Use Types Packs/Day Years Used Date Smoking Tobacco: Former Cigarettes 2 30 0 11/13/1975 - 11/12/2005 Passive Smoke Exposure: Past Smokeless Tobacco: Never Alcohol Use Standard Drinks/Week Comments Not Currently 0 (1 standard drink = 0.6 oz pur e alcohol) [place] Utilities Answer Date Recorded In the past [...] AM CDT Legal Sex Female 1:31 PM IT PROGRAMMER Gender Identity Female 03/19/2023 10:10 AM CDT Sexual Orientation Not on file documented as of this encounter Miscellaneous Notes * Telephone Encounter - Nunu Peters M.B.B.S. 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 PROGRAMMER * Telephone Encounter - Nunu Peters M.B.B.S. - 07/03/2024 3:19 PM CST ----- Message from Yesica Ocampo, Pharm.D., R.Ph. sent at 07/03/2024 1:27 PM IT PROGRAMMER ----- Patient with Right acute parotitis with overlying cellulitis, without parotid gland abscess on levofloxacin and metronidazole with new Culture of Aspergillus versicolor. Please review: need ID followup to consider fungal infection? I think this is likely a colonizer but appreciate 2nd review. Thanks [facility] ID to review result(s) from an antimicrobial stewardship report 1) Add comment (link under patient communication) or acknowledge the culture in micro tab 2) When the culture is clinically relevant, the recipient of this message is ultimately responsiblefor any necessary order changes When indicated: Message the OPAT pharmacist (preferred:to the pool) for assistance with antimicrobial order changes and patient counseling Available: Wednesday-Wednesday 8 am - 4:30 pm, non-Holidays PROGRAMMER documented in this encounter Plan of Treatment Upcoming Encounters Date Type Department Care Team (Late st Contact Info) Description 09/20/2024 3:00 PM CDT Appointment Department of Neurology in [place], [place] [address] [place] [address] Carmen Petit APRN, C.NKavyaP., M.S.N. [address] [place] [phone] 09/20/2024 3:45 PM CDT Appointment Department of Radiology, [facility], in [place], [place] [address] [place] [phone] Carmen Petit APRN, C.N.P., M.S.N. [address] [place] [phone] 09/21/2024 9:30 AM CDT Office Visit Department of Neurologic Surgery in [place], [place] [address] [place] [phone] Ashley Watts P.A.-C. [address] [place] [phone] 10/09/2024 9:30 AM CDT Office Visit Department of Otorhinolaryngology in [place], [place] [address] [place] [phone] Montserrat Jacobs M.D. [address] [place] [phone] Scheduled Procedures Name Priority Associated Diagnoses Date/Ti me ARTHROPLASTY TOTAL REVERSE SHOULDER Fracture 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 documented as of this encounter Visit Diagnoses Not on filedocumented in this encounter Additional Health Concerns Assessment Noted Time PHQ-9 Depression Total Score: 5 02/14/20 24 9:00 AM CDT documented as of this encounter Care Teams Dehydrating Press Operator Relationship Specialty Start Date End Date Laly Dickey MPAS PJose David. [address] [place] [phone] PCP - General Internal Medicine 07/28/22 documented as of this encounter
--- OUTSIDE RECORDS SUMMARY | 2024-08-15 14:12 | XMS_ITS | Encounter Summary ---
Author Organization [facility] Address [address] [place] [address] Care Team Providers Care Peoplesoft Developer Name Role Phone Laly Dickey P.A.-C. Primary Care Pro vider Encounter Details Date Type Department Care Team (Latest Contact Info) Description 06/21/2024 Intake [facility] Social History Tobacco Use Types Packs/Day Years Used Date Smoking Tobacco: Former Cigarettes 2 30 0 11/13/1975 - 11/12/2005 Passive Smoke Exposure: Past Smokeless Tobacco: Never Alcohol Use Standard Drinks/Week Comments Not Currently 0 (1 standard drink = 0.6 oz pur e alcohol) [facility] Utilities Answer Date Recorded In the past 12 months has e electric, gas, oil, or water [employer] threatened to shut off services in your [...] your living situation today? I have a [facility] place to live 06/23/2024 Comments No Sex and Gender Information Value Date Recorded Sex Assigned at Female 03/19/2023 10:10 AM CDT Legal Sex Female 1:31 PM PROGRAM MANAGEMENT MANAGER Gender Identity Female 03/19/2023 10:10 AM CDT Sexual Orientation Not on file documented as of this encounter Functional Status * Intimate Partner Violence Question Answer Date of Assessment Author Within the last year, have y ou been humiliated or emotionally abused in other ways by your partner or ex-partner? No 06/23/2024 3:00 PM PROGRAM MANAGEMENT MANAGER Aguilar Combs, M.S.N., R.N. Within the last year, have y ou been afraid of your partner or ex-partner? No 06/23/2024 3:00 PM PROGRAM MANAGEMENT MANAGER Deb Combs M.S.N., R.N. Within the last year, have y ou been raped or forced to have any kind of sexual activity by your partner or ex-partner? No 06/23/2024 3:00 PM PROGRAM MANAGEMENT MANAGER Rex Combs, M.S.N., R.N. Within the last year, have y ou been kicked, hit, slapped, or otherwise physically hurt by your partner or ex-partner? No 06/23/2024 3:00 PM Rex Lincoln, M.S.N., R.N. documented as of this encounter Progress Notes * Adriane Stapleton M.S.W., LKacey.S.W. - 06/21/2024 11:06 AM CST [facility]: ATC referral SUBJECTIVE Referral received from Admissions and Transfer Center on 06/21/24, as part of hospital transfer request from [address] (phone: [phone]). OBJECTIVE This patient was accepted for transfer prior to the assessment process. This is a 69 y.o. year old female from [address] [place] [phone]. The patient was admitted to their facility on 06/20/24 for Progressive Parotitis. The physician is requesting transfer. The family is aware of, and agrees with, the request to transfer. Reason for transfer request: higher level of care, patient had an upcoming [place] appointment. Patient is unable to make their own decisions, family is making decisions on their behalf. Ashley Stewart. Referring facility reports the following information: Oxygen: Patient is requiring supplemental oxygen via intubation Bariatric equipment: Patient does not require bariatric equipment. Mobility: currently bedbound due to intubation. Independent at baseline. ADLs: Patient requires assistance with activities of daily living currently due to health status. Nursing reports she was previously independent. Prior to admission, nursing reports she believed the patient was living in her home independently. Wound care: No concerns Diet: NPO, will likely need a Gtube placed. Isolation precautions: No concerns Dialysis: None IV Antibiotics: Ceftriaxone, Vanco and Flagyl Behavioral concerns: No concerns Psychiatric concerns: No concerns Legal concerns: No concerns Financial concerns: No concerns Family concerns: No concerns Multiple hospitalizations: No concerns Patient has the following supports: Daughter who is her decision maker, Ivy [phone] Anticipated discharge disposition according to referring facility: Home Self Care ASSESSMENT / PLAN It appears that some barriers to discharge planning have been identified as noted above. PLAN: I have discussed that in the event the patient is transferred here the social cost of travel such as lodging, meals, and transport home are the personal responsibility of the patient and family. Theyhave agreed to relay this information to the family. Noam Shea, Nedra.S.W. 06/21/2024 RAM MANAGEMENT MANAGER documented in this encounter Plan of Treatment Upcoming Encounters Date Type Department Care Team (Late st Contact Info) Description 09/20/2024 3:00 PM CDT Appointment Department of Neurology in [address] [phone] Carmen Petit APRN, C.NKavyaP., M.S.N. [address] [place] [phone] 09/20/2024 3:45 PM CDT Appointment Department of Radiology, [facility], in [place], [place] [address] [place] [phone] Carmen Petit APRN, Sommer.N.P., M.S.N. [address] [place] [phone] 09/21/2024 9:30 AM CDT Office Visit Department of Neurologic Surgery in [place], [place] [address] [place] [phone] Ashley Watts P.A.-C. [address] [place] [phone] 10/09/2024 9:30 AM CDT Office Visit Department of Otorhinolaryngology in [place], [place] [address] [place] [phone] Montserrat Jacobs M.D. [address] [place] [phone] Scheduled Procedures Name Priority Associated Diagnoses Date/Ti me ARTHROPLASTY TOTAL REVERSE SHOULDER Fracture 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 documented as of this encounter Visit Diagnoses Not on filedocumented in this encounter Additional Health Concerns Assessment Noted Time PHQ-9 Depression Total Score: 5 02/14/20 24 9:00 AM CDT documented as of this encounter Care Teams Peoplesoft Developer Relationship Specialty Start Date End Date Laly Dickey MPAS, P.A.-C. [address] [place] [phone] PCP - General Internal Medicine 07/28/22 documented as of this encounter
--- OUTSIDE RECORDS SUMMARY | 2024-08-15 14:12 | XMS_ITS | Encounter Summary ---
Author Organization [facility] Address [address] [place] [address] Care Team Providers Care Assistant Restaurant General Manager Name Role Phone Laly Dickey, P.A.-CKavya Primary Care Pro vider Encounter Details Date Type Department Care Team (Latest Contact Info) Description 07/05/2024 10:43 AM SUPPORT ASSISTANT - 07/05/2024 11:59 PM [facility] Hospital Encounter Department of Laboratory Medicine in [place], [place] [address] [place] [phone] Laly Dickey MPAS, P.A.-CKavya 300 [place] [phone] Parotitis Discharge Disposition: Home or Self Care Social History Tobacco Use Types Packs/Day Years Used Date Smoking Tobacco: Former Cigarettes 2 30 0 11/13/1975 - 11/12/2005 Passive Smoke Exposure: Past Smokeless Tobacco: Never Alcohol Use Standard Drinks/Week Comments Not Currently 0 (1 standard drink = 0.6 oz pur e alcohol) [facility] Utilities Answer Date Recorded In the past 12 months has e [employer], gas, oil, or water [employer] threatened to shut off services in your [...] living situation today? I have a [facility] place to live 06/23/2024 Comments No Sex and Gender Information Value Date Recorded Sex Assigned at Female 03/19/2023 10:10 AM CDT Legal Sex Female 1:31 PM SUPPORT ASSISTANT Gender Identity Female 03/19/2023 10:10 AM [...] BY MOUTH DAILY 90 capsule 3 08/02/2023 levoFLOXacin (Levaquin) 500 mg tabletIndication s:Parotitis Take 1 tablet (500 mg total) by mouth daily before morning meal for 7 days. 7 tablet 07/05/2024 5 metroNIDAZOLE (FlagyL) 500 mg tabletIndication s:Parotitis Take 1 tablet (500 mg total) by mouth 3 (three) times a day for 7 days. 21 tablet 07/05/2024 5 semaglutide (Ozempic) 1 mg/dose (4 mg/3 mL) injection Inject 1 mg under the skin every 7 (seven) days. 10/10/2023 5 traMADoL (Ultram) 50 mg tabletIndication s:Chronic Pain/Nonacute Pain Take 1 tablet (50 mg total) by mouth 2 (two) times a day as needed for severe pain or score 7-10 of 10 Indications: Chronic Pain/Nonacute Pain. 28 tablet 06/20/2024 5 traMADoL (Ultram) 50 mg tablet Take 50 mg by mouth. Bedtime as needed. 10/10/2023 5 documented as of this encounter Plan of Treatment Upcoming Encounters Date Type Department Care Team (Late st Contact Info) Description 09/20/2024 3:00 PM CDT Appointment Department of Neurology in [place], [place] [address] [place] [phone] Carmen Petit APRN, C.N.P., M.S.N. [address] [place] [phone] 09/20/2024 3:45 PM CDT Appointment Department of Radiology, [facility], in [place], [place] [address] [place] [phone] Carmen Petit APRN, C.N.P., M.S.N. [address] [place] [phone] 09/21/2024 9:30 AM CDT Office Visit Department of Neurologic Surgery in [place], [place] [address] [place] [phone] Ashley Watts P.A.-C. [address] [place] [phone] 10/09/2024 9:30 AM CDT Office Visit Department of Otorhinolaryngology in [place], [place] [address] [place] [phone] Montserrat Jacobs M.D. [address] [place] [address] Scheduled Procedures Name Priority Associated Diagnoses Date/Ti me ARTHROPLASTY TOTAL REVERSE SHOULDER Fracture 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 documented as of this encounter Procedures Procedure Name Priority Date/Time Associated Diagnosis Comments CBC WITH DIFFERENTIAL, B Routine 07/05/2024 10:51 AM SUPPORT ASSISTANT Parotitis C-REACTIVE PROTEIN (CRP), S/P Routine 07/05/2024 10:51 AM SUPPORT ASSISTANT Parotitis documented in this encounter Results * CRP (C-Reactive Protein) (07/05/2024 10:51 AM SUPPORT ASSISTANT) C-Reactive Protein (CRP), P <3.0 <5.0 mg/L 07/05/2024 1:56 PM SUPPORT ASSISTANT OWAT Blood (Blood, Venous) 07/05/2024 10:51 AM SUPPORT ASSISTANT 07/05/2024 1:09 PM SUPPORT ASSISTANT Laly LAKHANI, P.A.-C. LAB BLOOD ADD-ON Final Result [facility] [address] [place] [address], [place] OWAT [facility] in [place] [address] [place] [address] * (ABNORMAL) CBC with Differential, Blood (07/05/2024 10:51 AM SUPPORT ASSISTANT) Hemoglobin 12.4 11.6 - 15.0 g/dL 07/05/2024 10:55 AM SUPPORT ASSISTANT FB60 Hematocrit 37.3 35.5 - 44.9 % 07/05/2024 10:55 AM SUPPORT ASSISTANT FB60 Erythrocytes 4.12 3.92 - 5.13 x10(12)/L 07/05/2024 10:55 AM SUPPORT ASSISTANT FB60 MCV 90.5 78.2 - 97.9 fL 07/05/2024 10:55 AM SUPPORT ASSISTANT FB60 RBC Distrib Width 13.0 12.2 - 16.1 % 07/05/2024 10:55 AM SUPPORT ASSISTANT FB60 Platelet Count 349 157 - 371 x10(9)/L 07/05/2024 10:55 AM SUPPORT ASSISTANT FB60 Leukocytes 9.8(H) 3.4 - 9.6 x10(9)/L 07/05/2024 10:55 AM SUPPORT ASSISTANT FB60 Neutrophils 6.07 1.56 - 6.45 x10(9)/L 07/05/2024 10:55 AM SUPPORT ASSISTANT FB60 Lymphocytes 2.67 0.95 - 3.07 x10(9)/L 07/05/2024 10:55 AM SUPPORT ASSISTANT FB60 Monocytes 0.77 0.26 - 0.81 x10(9)/L 07/05/2024 10:55 AM SUPPORT ASSISTANT FB60 Eosinophils 0.23 0.03 - 0.48 x10(9)/L 07/05/2024 10:55 AM SUPPORT ASSISTANT FB60 Basophils 0.05 0.01 - 0.08 x10(9)/L 07/05/2024 10:55 AM SUPPORT ASSISTANT FB60 Blood (Blood, Venous) 07/05/2024 10:51 AM SUPPORT ASSISTANT 07/05/2024 10:51 AM SUPPORT ASSISTANT Laly LAKHANI, P.A.-C. LAB BLOOD ADD-ON Final Result Performing Organization Address City/State/[facility] Co de Phone Number [facility] [address] [place] [address], [facility] FB60 [facility] in [place] [address] [place] [address] documented in this encounter Visit Diagnoses Diagnosis Parotitis documented in this encounter Additional Health Concerns Assessment Noted Time PHQ-9 Depression Total Score: 0 07/05/19 25 10:01 AM SUPPORT ASSISTANT documented as of this encounter Care Teams Assistant Restaurant General Manager Relationship Specialty Start Date End Date Laly Dickey MPAS, P.A.-C. [address] [place] [phone] (work) PCP - General Internal Medicine 07/28/22 documented as of this encounter
--- OUTSIDE RECORDS SUMMARY | 2024-08-15 14:12 | XMS_ITS | Encounter Summary ---
Author Organization [facility] Address [address] [place] [address] Care Team Providers Care Peoplesoft Hcm Consultant Name Role Phone Laly Dickey P.A.-C. Primary Care Pro vider Reason for Visit * Auth/Cert (Routine) Specialty Diagnoses / Procedures Referred By Nemo morales Referred To Contact Diagnoses Hydrocephalus Normal Pressure (HCC) Hydrocephalus Normal Pressure (HCC) [G91.2]. Procedures ventriculoperitoneal shunt placement. LAPAROSCOPIC EXPLORATION, DIAGNOSTIC. Referral ID Status Reason Start Date Expiration Date Visits Re quested Visits Authorized [id number] 1 1 Encounter Details Date Type Department Care Team (Latest Contact Info) Description 08/14/2024 5:38 AM CDT - 08/15/2024 11:21 AM CDT Hospital Encounter [facility], Ninth Floor [address] [place] [address] Agustin Granda M.D., Ph.D. [address] [place] [address] Discharge Disposition: Home or Self Care Social History Tobacco Use Types Packs/Day Years Used Date Smoking Tobacco: Former Cigarettes 2 30 0 11/13/1975 - 11/12/2005 Passive Smoke Exposure: Past Smokeless Tobacco: Never Comments:Quit smoking in 200 3 Alcohol Use Standard Drinks/Week Comments Not Currently 0 (1 standard drink = 0.6 oz pur e alcohol) [facility] Utilities Answer Date Recorded In the past 12 months has th e [employer], [employer], oil, or water [employer] threatened to shut off services in your [...] your living situation today? I have a [facility] place to live 08/14/2024 Comments No Sex and Gender Information Value Date Recorded Sex Assigned at Female 03/19/2023 10:10 AM CDT Legal Sex Female 1:31 PM SAND CUTTER Gender Identity Female 03/19/2023 10:10 AM CDT [...] 08/14/2024 7:26 PM CDT Evan Cruz R.N., JEFFERSON Within the last year, have y ou [...] 08/14/2024 7:26 PM CDT Charles Cruz R.N., JUAN MIGUELN documented as of this encounter Discharge Summaries * Aleksandra Peraza M.D. - 08/15/2024 6:53 AM CDT DISCHARGE SUMMARY BRIEF OVERVIEW Hospital: [facility] Discharge Provider: Agustin Granda M.D. Primary Team: [facility] Neurological Surgery - Jesus Alberto Primary Care Providers: Laly Dickey MPAS P.AKavya-CKavya (General) [address] [place] [phone] Primary Care Provider Primary Care Provider Other [...] Peraza M.D.Brando Martel M.D.Ballinger, Beth A, M.D. [facility] DISCHARGE DISPOSITION Home or Self Care [1] [...] frequently. If needed, you may take an mcns-uol-bpuduul medication such as docusate sodium (Colace), senna [...] the wound may need tere further evaluated. Sutures/[place]: The patient's wound has been approximated by [...] contact Agustin Granda service by calling the [facility] Waste Removalist at [phone] or his secretary of police during regular business hours at [phone]. OUTPATIENT FOLLOW UP Scheduled Appointments 09/20/2024 3:00 [...] by Dr. Granda for a right parietal MED SPEC shunt. The intraoperative as well as the [...] and an appointment with Dr. Granda's Physician Ward Clerk in 4 weeks. These appointments have been scheduled and will be given at discharge. 2. If you have had changes in your overall health status, please follow up with your primary care doctor within a couple of weeks of discharge. 3. If you have any questions about an appointment, please call the Neurosurgery Appointment Center at . [facility] You may have outpatient appointments at [facility] that changed during your hospitalization. Referto your [facility] Patient Visit Guide (PVG) for the most current schedule of appointments and detailed instructions of tests/procedures. * Attachments The following attachments cannot be sent through Care Everywhere. * Oxycodone, Rapid Release (By mouth) (Salvadorean) documented in this encounter Medications at Time [...] 08/15/2024 6:52 AM CDT Anna Ortega 69F [phone] POD1 s/p right parietal MED SPEC shunt placement Summary: 69F who presented with [...] concerns, please contact Dr. Granda's service at [phone]. * Dunia Rios APRN, C.N.P. - 08/14/2024 [...] breakfast and dinner. OneTouch Verio Reflect Meter [facility] [place] -- -- 03/07/24 -- APPLY 1 EACH [...] Zendejas BCC - 08/14/2024 7:00 AM CDT [facility] Spiritual Care Progress Note Patient: Anna Ortega Age:69 y.o. Location: [facility] Reason(s) for encounter: AM Admit Spiritual Care contact to introduce spiritual care service and assess for potential spiritual care needs. Summary: I had the pleasure to meet with Ms. Anna Ortega for pre-surgical spiritual care support. [...] requested. Chaplains can be contacted by paging [phone] ([place]) or [phone] (Sikh). documented in this encounter H&P Notes * Aleksandra Peraza M.D. - 08/14/2024 7:03 AM CDT INTERVAL HISTORY AND PHYSICAL PRE-PROCEDURE UPDATE H&P reviewed. The patient was examined and there are no significant changes to the H&P. Beth Devi.D. Source Note - Joseph Pickett Fahad JoseB.S. - 08/10/2024 1:30 PM CDT History and Physical CHIEF COMPLAINT/REASON FOR VISIT: Preop evaluation of laparoscopic access for MED SPEC shunt placement Referring Provider: Agustin Granda M.D.,* SUBJECTIVE Anna Ortega is a 69 y.o. female who presents for evaluation of laparoscopic access for MED SPEC shunt placement by Dr. Granda. 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 Ortega is a 69-year-old female who presented to our clinic today for preop evaluation of laparoscopic access for a MED SPEC shunt. Her surgery was scheduled on 08/15. [...] complications from anesthesia. We discussed that at [facility] there is a full team incorporated into patient care, and the patient acknowledges that others will be involved in their care. The patient understands that the staff surgeon may be participating in another operative procedure during non-critical portions of their procedure,and that a qualified surgeon will be available if needed. We discussed about the group practice of a [facility] General surgery as well. We discussed hospital [...] encounter Nursing Notes * Evan Cruz R.N., CCRN - 08/15/2024 6:00 AM CDT Shift Goals: [...] siphonguard setting 6. Intraoperative use of neuronavigation Industrial Seamstress A medical assistant actively participated and was necessary for [...] for laparoscopic access to the abdomen. A [employer] antibiotic impregnated catheter was tunneled from the [...] the recovery room in stable condition. Agustin Granda M.D., Ph.D. * Op Note - Brando Martel M.D. - 08/14/2024 9:30 AM CDT Pre-op Diagnosis Hydrocephalus Normal Pressure (HCC) Post-op Diagnosis Hydrocephalus Normal Pressure (HCC) Industrial Seamstress A medical assistant actively participated and was necessary for [...] by Dr. Granda for a right parietal MED SPEC shunt. The intraoperative as well as the [...] PM CDT Appointment Department of Neurology in [place], [place] [address] [place] [address] Carmen Petit APRN, C.N.P., M.S.N. [address] [place] [phone] 09/20/2024 3:45 PM CDT Appointment Department of Radiology, [facility], in [place], [place] [address] [place] [address] Carmen Petit APRN, C.N.P., M.S.N. [address] [place] [phone] 09/21/2024 9:30 AM CDT Office Visit Department of Neurologic Surgery in [place], [place] [address] [place] [phone] Ashley Watts P.A.-C. [address] [place] [phone] 10/09/2024 9:30 AM CDT Office Visit Department of Otorhinolaryngology in [place], [place] [address] [place] [phone] Montserrat Jacobs M.D. [address] [place] [phone] Scheduled Procedures Name Priority Associated Diagnoses Date/Ti [...] outpatients) 08/14/2024 12:44 PM CDT DX ADULT MED SPEC SHUNT SERIES RAD - Routine (most inpatients [...] ORDERABLES-MANUAL Marina l Result Performing Organization Address City/[facility]/ZIP Co de Phone Number POC [facility] [address] [place] [address], [facility] PCLX [facility] POC [address] [place] [address] * Glucose, POCT (08/14/2024 9:34 PM CDT) Glucose, POCT, B 127 70 - 140 mg/dL 08/14/2024 9:39 PM CDT PCLX Site Capillary 08/14/2024 9:39 PM CDT PCLX Blood 08/14/2024 9:34 PM CDT 08/14/2024 9:39 PM CDT us Unknown Provider LAB POCT ORDERABLES-MANUAL Marina l Result Performing Organization Address City/[facility]/ZIP Co de Phone Number POC [facility] [address] [place] [address], [facility] PCLX [facility] POC [address] [place] [address] * (ABNORMAL) Glucose, POCT (08/14/2024 4:21 PM CDT) Glucose, POCT, B 177(H) 70 - 140 mg/dL 08/14/2024 4:23 PM CDT PCLX Site Capillary 08/14/2024 4:23 PM CDT PCLX Blood 08/14/2024 4:21 PM CDT 08/14/2024 4:23 PM CDT us Unknown Provider LAB POCT ORDERABLES-MANUAL Marina shanice Result POC [facility] [address] [place] [address], [facility] PCLX [facility] POC [address] [place] [address] * CT Head without IV Contrast (08/14/2024 [...] There is associated post procedural subcutaneous emphysema. Yxdo-ub-fkcjcsew cerebral leukoaraiosis. Moderate generalized cerebral volume loss [...] neck. There is associated post proceduralsubcutaneous emphysema. Uayv-lw-ueyoqvxj cerebral leukoaraiosis. Moderate generalized cerebralvolume loss with [...] CT PROCEDURES Final Result * DX Adult MED SPEC Shunt Series (08/14/2024 12:24 PM CDT) Anatomical Region Laterality Modality Head, Chest, Abdomen, Neuror adiology RST LOS, Neuroradiology ARZ LOS, Muskuloskeletal FLA LOS N/A Digita l Radiography Impressions 08/14/2024 12:51 PM CDT Right posterior parietal approach Codman Certas plus programmable MED SPEC shunt. Tubing courses along the right neck and hemithorax before terminating within the right upper quadrant of the abdomen. No focal discontinuity. No acute findings within the visualized chest and abdomen. Multiple chronic right rib fractures. Multilevel spondylitic changes throughout the spine. Narrative 08/14/2024 12:51 PM CDT EXAM: DX ADULT MED SPEC SHUNT SERIES Procedure Note Cole Walker D.O. - 08/14/2024 EXAM: DX ADULT MED SPEC SHUNT SERIES IMPRESSION: Right posterior parietal approach Codman Certas plus programmable VPshunt. Tubing courses along the right neck and hemithorax beforeterminating within the right upper quadrant of the abdomen. No focaldiscontinuity. No acute findings within the visualized chest and abdomen. Multiple chronic right ribfractures. Multilevel spondylitic changes throughout the spine. Yvonne Haider M.D. [facility] PROC EDURES Final Result * (ABNORMAL) Glucose, POCT (08/14/2024 11:21 AM CDT) Glucose, POCT, B 163(H) 70 - 140 mg/dL 08/14/2024 11:24 AM CDT PCLX Blood 08/14/2024 11:2 1 AM CDT 08/14/2024 11:24 AM CDT Unknown Provider LAB POCT ORDERABLES-MANUAL Marina l Result POC [facility] [address] [place] [address], [facility] POC [address] [place] [address] * Glucose, POCT (08/14/2024 9:18 AM CDT) Glucose, POCT, B 109 70 - 140 mg/dL 08/14/2024 9:20 AM CDT PCSM Site Artstick 08/14/2024 9:20 AM CDT PCSM Blood 08/14/2024 9:18 AM CDT 08/14/2024 9:20 AM CDT us Unknown Provider LAB POCT ORDERABLES-MANUAL Marina l Result Performing Organization Address City/[facility]/ZIP Co de Phone Number POC [facility] [address] [place] [address], [facility] PCSM [facility] POC [address] [place] [phone] * Glucose, POCT (08/14/2024 6:27 AM CDT) [facility] Glucose, POCT, B 126 70 - 140 mg/dL 08/14/2024 6:44 AM CDT PCLX Site Capillary 08/14/2024 6:44 AM CDT PCLX Blood 08/14/2024 6:27 AM CDT 08/14/2024 6:44 AM CDT us Unknown Provider LAB POCT ORDERABLES-MANUAL Marina l Result Performing Organization Address [facility] Co de Phone Number POC [facility] [address] [place] [address], [facility] POC [address] [place] [address] documented in this encounter Visit Diagnoses Not on filedocumented in this encounter Admitting Diagnoses Diagnosis Hydrocephalus [...] Given 08/14/2024 6:32 PM CDT 1,000 mg acetaminophen tablet 1,000 mg (TylenoL) 1,000 mg, oral, Once, On Wed08/14/24 at 0645, For 1 dose, Pre-Op Given 08/14/2024 6:46 AM CDT 1,000 mg amitriptyline tablet 150 mg [...] throat irritation, Starting on Wed08/14/24 at 1312 calcium carbonate chewable tablet 400 mg of calcium (Tums) 400 mg of calcium, oral, Every 4 hours PRN, heartburn, indigestion, Starting on Wed08/14/24 at 1253, Doses listed are in mg of elemental calcium. Take with food. 500 mg calcium carbonate contains 200 mg of elemental calcium. ceFAZolin injection 2 g (Ancef) 2 g, intravenous, Every 8 hours, First dose on Wed08/14/24 at 1730, For 3 doses, Start within 8 hours of last IV dose. For immediate IV push administration, reconstitute vial per IVAG or package insert instructions. See IVAG for administration guidelines., Drug Monitoring Program: Pharmacist to adjust medication dosing based on indication and drug clearance factors., Indications: Prophylaxis, surgicalIndications:Prophylaxis, surgical Given 08/15/2024 8:56 AM CDT 2 g Given 08/15/2024 1:51 AM CDT 2 g Given 08/14/2024 4:39 PM CDT 2 g chlorhexidine 0.12 % mouthwash 15 mL (Peridex) 15 mL, swish & spit, Once as [...] and gums. Ensure swab is not oversaturated. Given 08/14/2024 6:47 AM CDT 15 m L ezetimibe tablet 10 mg (Zetia) 10 mg, oral, Daily, First dose on Wed08/15/24 at 0900 Given 08/15/2024 8:56 AM CDT 10 mg fentaNYL injection 25 mcg (Sublimaze) 25 mcg, intravenous, Every 2 min PRN, moderate pain or score 4-6 of 10, severe pain or score 7-10 of 10, Starting on Wed08/14/24 at 1045, PACU (only), Up to maximum total dose of 200 mcg Given 08/14/2024 12:18 PM CDT 25 mcg Given 08/14/2024 11:52 AM CDT 25 mcg Given 08/14/2024 11:07 AM CDT 25 mcg gabapentin capsule 300 mg (Neurontin) 300 mg, [...] Brigid Gunderson R.N.) 0151 (Given - Provider: Eavn Cruz R.N., CCRN)0645 (Given - Provider: Evan Cruz R.N., JUAN MIGUELN) acetaminophen tablet 1,000 mg (TylenoL) (COMPLETED) 1,000 mg, oral, Once, On Wed08/14/24 at 0645, For 1 dose, Pre-Op 0646 (Given - Provider: Renea Parks R.N.) amitriptyline tablet 150 mg (ElaviL) 150 mg, oral, Daily at bedtime, First dose on Wed08/14/24 at 2100 2130 (Given - Provider: Evan Cruz R.N., JUAN MIGUELN) atorvastatin tablet 80 mg (Lipitor) 80 mg, [...] and drug clearance factors., Indications: Prophylaxis, surgical 1639 (Given - Provider: Brigid Gunderson R.N.) 0151 (Given - Provider: Evan Cruz R.N., CCRN)0856 (Given - Provider: Rosibel E O'Dari, R.N.) ceFAZolin injection 2,000 mg (Ancef) (COMPLETED) [...] 0856 (Given - Provid er: Rosibel Lee RKavyaN.) gabapentin capsule 300 mg (Neurontin) 300 mg, [...] than 399: Call service writing Insulin orders 1639 (Given - Provider: Brigid Gunderson RKavyaN.) 0845 (Not Given - Provider: Rosibel Lee RKavyaN. - Reason: Order parameters not met - [...] at 2100, For constipation. Hold for diarrhea. 212 (Given - Provider: Evan Cruz R.N., CCRN) 0856 (Given - Provider: Roisbel Lee R.N.) torsemide tablet 80 mg (Demadex) [...] Remove inhaler from mouth. 7. Close lid. 0904 (Given - Provid er: Rosibel Lee R.N.) venlafaxine XR 24 hr capsule 150 mg (Effexor-XR) 150 mg, oral, Daily, First dose (after last modification) on Wed08/14/24 at 1400, Swallow whole. Do NOT crush, chew or open capsule. 1341 (Given - Provider: Brigid Gunderson R.N.) 0856 (Given - Provider: Rosibel Lee R.N.) [...] oversaturated. 0647 (Given - Provider: Renea Parks R.N.) fentaNYL injection 25 mcg (Sublimaze) (CANCELED) 25 mcg, intravenous, Every 2 min PRN, moderate pain or score 4-6 of 10, severe pain or score 7-10 of 10, Starting on Wed08/14/24 at 1045, PACU (only), Up to maximum total dose of 200 mcg 1102 (Given - Provider: Dano Barboza R.N.)1107 (Given - Provider: Juventino OglesbyN.)1152 (Given - Provider: Juventino OglesbyN.)1218 (Given - Provider: Dano Barboza R.N.) hydrALAZINE [...] R.N.)2128 (Given - Provider: Evan Cruz R.N., JUAN MIGUELN) 0152 (Given - Provider: Evan Cruz R.N., CCRN)0609 (Given - Provider: Evan Cruz R.N., CCRN) oxyCODONE IR tablet 5 mg (Roxicodone)(Linked Group 1) 5 mg, oral, Every 4 hours PRN, severe pain or score 7-10 of 10, Starting on Wed08/14/24 at 1253 1317 (See Alternative - Provider: Brigid Gunderson R.N.)1724 (See Alternative - Provider: Brigid Gunderson R.N.)2127 (See Alternative - Provider: Evan Cruz R.N., JUAN MIGUELN) 0152 (See Alternative - Provider: Evan Cruz [...] Total Score: 0 07/05/19 25 10:01 AM SAND CUTTER documented as of this encounter Care Teams Peoplesoft Hcm Consultant Relationship Specialty Start Date End Date Laly Dickey MPAS, P.A.-C. [address] [place] [phone] PCP - General Internal Medicine 07/28/22 documented as of this encounter
--- OUTSIDE RECORDS SUMMARY | 2024-08-15 14:12 | XMS_ITS | Encounter Summary ---
Author Organization [facility] Address [address] [place] [id number] Care Team Providers Care Casino Dealer Name Role Phone Laly Dickey P.A.-C. Primary Care Pro vider Reason for Visit * Auth/Cert (Routine) Specialty Diagnoses / Procedures Referred By Nemo morales Referred To Contact Diagnoses Hydrocephalus Normal Pressure (HCC) Hydrocephalus Normal Pressure (HCC) [G91.2]. Procedures ventriculoperitoneal shunt placement. LAPAROSCOPIC EXPLORATION, DIAGNOSTIC. Referral ID Status Reason Start Date Expiration Date Visits Re quested Visits Authorized [id number] 1 1 Encounter Details Date Type Department Care Team ([facility] st Contact Info) Description 08/14/2024 8:17 AM CDT Anesthesia Event RST ROMB MAIN OR [address] [place] [phone] Agatha Chandler M.D. [address] [place] [phone] Imelda Yoon M.D. [address] [place] [phone] Anesthesia Record Procedure Summary Procedure Name Responsible Anesthesiologist Anesthesia Start Time Anesthesia Stop Time ventriculoperitoneal shunt placement. (Right: Head) Agatha Chandler M.D. 08/14/24 0817 08/14/24 104 6 Events Date Time Event Comment 08/14/2024 0817 An Start Machine/Equipme nt Checked Infection Precautions Followed Procedure/Site Verified NPO Status Verified Supine Standard ASA Monitors Applied 0821 An Induction 0828 An Intubation 0842 Turnover to Proceduralist 0930 Proc Start 1030 Proc Fin 1037 Turnover to ANE Staff 1037 Airway Removal Criteria Met 1037 Extubation/Airway Removed 1041 an stop data 1046 An End I completed my handoff to the receiving staff during which we 1. Identified the patient 2. Identified the responsible provider 3. Reviewed the pertinent medical history 4. Discussed the surgical course 5. Reviewed intra-op anesthesia management and issues during anesthesia 6. Set expectations for post-procedure period 7. Allowed opportunity for questions and acknowledgement of understanding. Meds Name Total fentanyl injection 50 mcg/mL 100 mcg lidocaine 2% (mg) injection 100 mg rocuronium 10 mg/mL injection 90 mg phenylephrine 100 mcg/mL injection 1,400 mcg ePHEDrine PF 5 mg/mL syringe injection 2 5 mg ondansetron 4 mg/2 mL injection 4 mg sugammadex 100 mg/mL injection 250 mg propofol 10 mg/mL injection 150 mg ceFAZolin injection 2,000 mg (Ancef) 2 g Lactated Ringers Free Drip 1,000 mL * Agents No agents on file. * Blood No blood administrations on file. Lines, Drains, and Airways Type Details Placement Removal Wound 08/14/24; N; Incisio n; Head (Comment); Lower, Posterior, Right 08/14/24 0000 by Alen Curry, R.N. Scope Sites 08/14/24; Abdomen; 1 ; Left, Upper; 2; Right, Upper 08/14/24 0000 by Alen Curry, R.N. Peripheral IV Placement Date: 07/29 12/22; Placement Time: 06; Catheter Size: 20 G; Orientation: Anterior, Left, Lower; Location: Forearm; Site Prep: Chlorhexidine (Preferred); Technique: (2); Inserted by: adebayo; Insertion Attempts: 1 08/14/24 0618 by Pola Joshua ETT Placement Date: 07/29 12/22; Placement Time: 0828 (created via procedure documentation); Mask Ventilation: Oral/Nasal airway needed; Technique: Video laryngoscopy; Type: Standard ETT; Single Lumen Tube Size: 7 mm; Cuffed: Yes; Location: Oral; Grade View: Grade 2A; Insertion Attempts: 1; Placement Verification: Bilateral breath sounds, Positive ETCO2, Symmetrical chest wall movement; Removal Date: 08/14/24; Removal Time: 1037 08/14/24 0828 by Suzie Portillo 08/14/24 1037 by Imelda Yoon M.D. documented in this encounter Social History Tobacco Use Types Packs/Day Years Used Date Smoking Tobacco: Former Cigarettes 2 30 0 11/13/1975 - 11/12/2005 Passive Smoke Exposure: Past Smokeless Tobacco: Never Comments:Quit smoking in 200 3 Alcohol Use Standard Drinks/Week Comments Not Currently 0 (1 standard drink = 0.6 oz pur e alcohol) [facility] Utilities Answer Date Recorded In the past 12 months has e [employer], gas, oil, or water [employer] threatened to shut off services in your [...] ex-partner? No 08/14/2024 Overall Financial Resource Strain (CARDI) Answe r Date Recorded How hard is [...] your living situation today? 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 - 08/14/2024 10:55 AM CDT Patient: Anna Ortega Procedure Summary Date: 08/14/24 Room / Location: [address] 01 [facility] in [place], [place] Anesthesia Start: 816 Anesthesia Stop: 1045 Procedures: ventriculoperitoneal shunt placement. (Right: Head) LAPAROSCOPIC EXPLORATION, DIAGNOSTIC. (Abdomen) Diagnosis: Hydrocephalus Normal Pressure (HCC) (Hydrocephalus Normal Pressure (HCC) [G91.2].) Providers: Agustin Granda M.D., Ph.D.; Aaliyah Lazo M.D. Responsible Provider: Agatha Chandler M.D. Anesthesia Type: general ASA Status: 3 Anesthesia Type: general Last vitals Vitals Value Taken Time BP 133/116 08/14/24 1045 Temp 36.5 ??C 08/14/24 1046 Pulse 88 08/14/24 1055 Resp 18 08/14/24 1055 SpO2 92 % 08/14/24 1055 Vitals shown include unfiled device data. Please reference Vitals flowsheet for most recent vital signs. Anesthesia Post Evaluation Patient Disposition: general care unit Cardiovascular status: hemodynamics (HR & BP) acceptable Respiratory status: patent airway with spontaneous effort Temperature: normothermic Oxygen requirements: room air Level of consciousness: awake Pain score: pain adequately controlled and/or at baseline Post Op nausea/vomiting: none Hydration status: euvolemic Comments: Patient tolerated general anesthesia well. Minimal post-operative nausea and pain, both of which well-controlled at this time. Leaving PACU to inpatient room as planned. Alison Brooks MD, MPH PGY-2 [employer] Technician Notable Events No notable events documented. * Anesthesia Procedure Notes - Imelda Yoon M.D. - 08/14/2024 8:55 AM CDT Associated Order(s): Airway Airway Date/Time: 08/14/2024 8:28 AM Performed by: Suzie Portillo Authorized by: Agatha Chandler M.D. Patient location during procedure: OR / Procedure Area PROCEDURE DETAILS: Mask difficulty assessment: oral/nasal airway needed Final airway type: video laryngoscope Laryngeal Manipulation: no Final best view of glottic structures - Cormack/Lehane Score: grade 2A ETT location: oral VL device: glide scope [place] scope blade size: 3 Tube size: 7 [...] Procedure outcome: successful Notable Events: no complications documented in this encounter Plan of Treatment Upcoming Encounters Date Type Department Care Team (Late st Contact Info) Description 09/20/2024 3:00 PM CDT Appointment Department of Neurology in [address] [phone] Carmen Petit APRN, C.NVioleta, M.S.N. [address] [place] [phone] 09/20/2024 3:45 PM CDT Appointment Department of Radiology, [facility] in [address] [phone] Carmen Petit APRN, C.N.P., M.S.N. [address] [place] [phone] 09/21/2024 9:30 AM CDT Office Visit Department of Neurologic Surgery in [address] [phone] Ashley Watts P.A.-C. [address] [place] [phone] 10/09/2024 9:30 AM CDT Office Visit Department of Otorhinolaryngology in [address] [phone] Montserrat Jacobs M.D. [address] [place] [phone] Scheduled Procedures Name Priority Associated Diagnoses Date/Ti mt ARTHROPLASTY TOTAL REVERSE SHOULDER Fracture 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 documented as of this encounter Procedures Procedure Name Priority Date/Time Associated Diagnosis Comments AIRWAY MANAGEMENT Routine 08/14/2024 8:2 8 AM CDT documented in this encounter Results * Airway (08/14/2024 8:28 AM CDT) Narrative [...] ETT location: oral VL device: glide scope [place] scope blade size: 3 Tube size: 7 [...] Procedure outcome: successful Notable Events: no complications Agatha Chandler M.D. ANESTHESIA ORDERABLES Final Result documented in this encounter Visit Diagnoses Not on filedocumented in this encounter Administered Medications Inactive Administered Medications - up to 3 most recent administrations Medication Order MAR Action Action Date Dose Rate Site ceFAZolin injection 2,000 mg (Ancef) 2,000 mg (rounded from 2,650 mg = 25 mg/kg 106 kg), intravenous, Once, On 08/14/24 at 0715, For 1 dose, Intra-Op, Administer within 1 hour prior to surgical incision For immediate IV push administration, reconstitute vial per IVAG or package insert instructions. See IVAG for administration guidelines., Drug Monitoring Program: Pharmacist to adjust medication dosing based on indication and drug clearance factors., Indications: Prophylaxis, surgicalIndications:Prophylaxis, surgical Given 08/14/2024 9:26 AM CDT 2 g ePHEDrine (PF) injection intravenous, As needed, Starting on Wed08/14/24 at 0903, Anesthesia Intra-op Given 08/14/2024 9:40 AM CDT 5 mg Given 08/14/2024 9:31 AM CDT 5 mg Given 08/14/2024 9:15 AM CDT 7.5 mg fentaNYL injection (Sublimaze) intravenous, As needed, Starting on Wed08/14/24 at 0822, Anesthesia Intra-op Given 08/14/2024 9:48 AM CDT 50 mcg Given 08/14/2024 8:22 AM CDT 50 mcg Lactated Ringer's intravenous, Continuous Infusion: Per Instructions PRN, Starting on Wed08/14/24 at 0817, Anesthesia Intra-op New Bag 08/14/2024 8:17 AM CDT lidocaine (PF) (cardiac) injection intravenous, As needed, Starting on Wed08/14/24 at 0835, Anesthesia Intra-op Given 08/14/2024 8:21 AM CDT 100 mg ondansetron (PF) injection (Zofran) intravenous, As needed, Starting on Wed08/14/24 at 1012, Anesthesia Intra-op Given 08/14/2024 10:12 AM CDT 4 mg phenylephrine injection intravenous, As needed, Starting on Wed08/14/24 at 0835, Anesthesia Intra-op Given 08/14/2024 10:04 AM CDT 100 mc g Given 08/14/2024 9:40 AM CDT 200 mcg Given 08/14/2024 9:34 AM CDT 200 mcg propofoL injection (Diprivan) intravenous, As needed, Starting on Wed08/14/24 at 0840, Anesthesia Intra-op Given 08/14/2024 9:49 AM CDT 20 mg Given 08/14/2024 8:24 AM CDT 130 mg rocuronium injection (Zemuron) intravenous, As needed, Starting on Wed08/14/24 at 0835, Anesthesia Intra-op Given 08/14/2024 9:30 AM CDT 40 mg Given 08/14/2024 8:25 AM CDT 50 mg sugammadex injection ([place]) intravenous, As needed, Starting on Wed08/14/24 at 1027, Anesthesia Intra-op Given 08/14/2024 10:27 AM CDT 250 mg documented in this encounter Additional Health Concerns Assessment Noted Time PHQ-9 Depression Total Score: 0 07/05/19 10:01 AM 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 [address] [place] [address] [place] [phone] PCP - General Internal Medicine 07/28/22 documented as of this encounter
--- OUTSIDE RECORDS SUMMARY | 2024-08-15 14:12 | XMS_ITS | Encounter Summary ---
Author Organization [facility] Address [address] [place] [address] Care Team Providers Care Furniture Sales Associate Name Role Phone Laly Dickey P.A.-C. Primary Care Pro vider Reason for Referral * Outpatient (Routine) - Authorized Specialty Diagnoses / Procedures Referred By Nemo morales Referred To Contact Diagnoses Parotitis Procedures US Parotid Submandibular Glands Laly Dickey MPAS, P.A.-C. [address] [facility] [place] [address] Phone: tel: fax: [facility] Region Referral ID Status Reason Start Date Expiration Date V isits Requested Visits Authorized [id number] Authorized 07/05/2024 10/05/2025 1 1 COORDINATOR Encounter Details Date Type Department Care Team (Late st Contact Info) Description 07/05/2024 Results Follow-Up Department of Community Internal Medicine in [place], [place] [address] COUNT INCLUDES THE [facility] [phone] Laly Dickey MPAS, P.A.-C. [address] [facility] [place] [address] CBC with Differential, Blood Social History Tobacco Use Types Packs/Day Years Used Date Smoking Tobacco: Former Cigarettes 2 30 0 11/13/1975 - 11/12/2005 Passive Smoke Exposure: Past Smokeless Tobacco: Never Alcohol Use Standard Drinks/Week Comments Not Currently 0 (1 standard drink = 0.6 oz pur e alcohol) [facility] Utilities Answer Date Recorded In [...] your living situation today? 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 [address] [place] [phone] 09/20/2024 3:45 PM CDT Appointment Department of Radiology, [facility], in [place], [place] [address] [place] [phone] Carmen Petit APRN, C.N.P., M.S.N. [address] [place] [phone] 09/21/2024 9:30 AM CDT Office Visit Department of Neurologic Surgery in [place], [place] [address] [place] [phone] Ashley Watts P.A.-C. [address] [place] [phone] 10/09/2024 9:30 AM CDT Office Visit Department of Otorhinolaryngology in [place], [place] [address] [place] [address] Montserrat Jacobs M.D. [address] [place] [phone] Scheduled Orders Name Type Priority Associated Diagnoses Order Schedule US Parotid Submandibular Glands Imaging RAD - Routine (most inpatients and all outpatients) Parotitis Expected: 07/05/2024, Expires: 10/02/2025 Scheduled Procedures Name Priority Associated Diagnoses Date/Ti me ARTHROPLASTY TOTAL REVERSE SHOULDER Fracture 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 documented as of this encounter Visit Diagnoses Diagnosis Parotitis- Primary documented in this encounter Additional Health Concerns Assessment Noted Time PHQ-9 Depression Total Score: 0 07/05/19 25 10:01 AM GIS COORDINATOR documented as of this encounter Care Teams Furniture Sales Associate Relationship Specialty Start Date End Date Laly Dickey MPAS, P.A.-C. [address] [place] [phone] PCP - General Internal Medicine 07/28/22 documented as of this encounter
--- OUTSIDE RECORDS SUMMARY | 2024-08-15 14:12 | XMS_ITS | Encounter Summary ---
Author Organization [facility] Address [address] [place] [address] Care Team Providers Care Mass Spec Name Role Phone Laly Dickey, P.A.-C. Primary Care Pro vider Reason for Referral * Outpatient (Routine) - Authorized Specialty Diagnoses / Procedures Referred By Nemo morales Referred To Contact [facility] Laly Dickey MPAS, P.A.-C. [address] [facility] [place] [address] Phone: tel: fax: [facility] Region Referral ID Status Reason Start Date Expiration Date V isits Requested Visits Authorized [id number] Authorized 07/05/2024 01/04/2026 1 1 ITECT MARINE Reason for Visit * Reason Comments Post Hospital Follow-up States in Hospit al for gland infection. [facility]. She states today she is worried as right side jaw is getting large again and hurts. * Outpatient (Routine) - Closed Specialty Diagnoses / Procedures Referred By Nemo morales Referred To Contact [facility] Laly Dickey MPAS, P.A.-C. [address] [facility] [place] [address] Phone: tel: fax: [facility] Region Referral ID Status Reason Start Date Expiration Date Visits Re quested Visits Authorized [id number] Closed 07/04/2024 01/03/2026 1 1 Encounter Details Date Type Department Care Team (Late st Contact Info) Description 07/05/2024 10:30 AM ARCHITECT MARINE Office Visit Department of Community Internal Medicine in [place], [place] [address] [facility] [place] [address] Laly Dickey MPAS, P.A.-C. [address] [facility] [place] [phone] Parotitis (Primary Dx); Hydrocephalus Normal Pressure (HCC); Hyperlipidemia Mixed; Migraine Headache Social History Tobacco Use Types Packs/Day Years Used Date Smoking Tobacco: Former Cigarettes 2 30 0 11/13/1975 - 11/12/2005 Passive Smoke Exposure: Past Smokeless Tobacco: Never Alcohol Use Standard Drinks/Week Comments Not Currently 0 (1 standard drink = 0.6 oz pur e alcohol) [facility] Utilities Answer Date Recorded In the past 12 months has e [employer], gas, oil, or water [employer] threatened to shut off services in your [...] your living situation today? I have a [facility] place to live 06/23/2024 Comments No Sex and Gender Information Value Date Recorded Sex Assigned at Female 03/19/2023 10:10 AM CDT Legal Sex Female 1:31 PM ARCHITECT MARINE Gender Identity Female 03/19/2023 10:10 AM CDT Sexual Orientation Not on file documented as of this encounter Last Filed Vital Signs Vital Sign Reading Time Taken Comments Blood Pressure 94/61 07/05/2024 10:00 AM ARCHITECT MARINE Pulse 87 07/05/2024 10:00 AM ARCHITECT MARINE Temperature 36.8 C (98.2 F) 07/05/2024 10:00 AM ARCHITECT MARINE Respiratory Rate 20 07/05/2024 10:00 AM ARCHITECT MARINE Oxygen Saturation - - Inhaled Oxygen Concentration - - Weight 103 kg (227 lb 4.6 oz) 07/05/2024 10:00 A M ARCHITECT MARINE shoes on Height 170.2 cm (5' 7.01) 07/05/2024 10:00 AM Sommer LUQUE shoes on Body Mass Index 35.59 07/05/2024 10:00 AM ARCHITECT MARINE documented in this encounter Progress Notes * Laly Dickey MPAS, [place]. - 07/05/2024 10:30 AM CST SUBJECTIVE CHIEF COMPLAINT/REASON FOR VISIT Chief Complaint Patient presents with Post Hospital Follow-up States in Hospital for gland infection. [facility]. She states today she is worried as right side jaw is getting large again and hurts. HISTORY OF PRESENT ILLNESS Anna Ortega is a pleasant 69 y.o. female who presents to the clinic today for post hospital follow-up. She was admitted to [facility] 06/21/2024 and discharged 06/25/2024 with a principal diagnosis of bacteria parotitis. She was prescribed levofloxacin and metronidazole for 7 daysat discharge. She completed these antibiotics one week ago. She feels well today but is worried because she feels increased swelling over area of right parotid glad with tenderness to palpation sinceshe has been off of antibiotics. She has not had a fever at home. Tramadol and flexeril were held during the hospitalization due to dizziness and fall risk. Pain was managed with oxycodone in hospital. She says she was given a prescription for this at discharge but has not needed to take it. She has resumed tramadol and flexeril now since being home from hospital. She does not feel these medications contribute to dizziness but rather thinks her amitriptyline makes her dizziness. We reduced the dose of amitriptyline at our last visit. She does not need a refill of tramadol or flexeril today. The following portions of the patient's history were reviewed and updated as appropriate: current medications and problem list. Problem List[1] ALLERGIES/CONTRAINDICATIONS Allergies[2] CURRENT MEDICATIONS Current Medications[3] OBJECTIVE VITAL SIGNS Vitals: 07/05/24 1000 BP: 94/61 Pulse: 87 Resp: 20 Temp: 36.8 ??C PHYSICAL EXAMINATION General: Well-nourished, well-developed 69 y.o. in no apparent distress. Awake, alert, age appropriate. HEENT: Mild swelling right parotid gland as compared to left with tenderness to palpation. No skin erythema but warm to touch. Cardiovascular: Regular rate and rhythm without murmurs. Lungs: Clear to auscultation bilaterally with no adventitious sounds Neurologic: Alert and oriented x3. ASSESSMENT / PLAN IMPRESSION/REPORT/PLAN: #1 Parotitis I reviewed discharge summary from [place]. She has completed her outpatient antibiotics. She hasswelling and tenderness over right parotid gland today that seems to be new since she completed heroutpatient antibiotics. We checked a white blood cell count today which has improved from hospital discharge, still mildly elevated. I discussed current clinical symptoms with ID team in [place]. We will resume outpatient levofloxacin 500 mg daily and metronidazole 500 mg TID for 7 days. Parotid US has been ordered to evaluate for abscess which I have asked to be completed by end of this week. - CBC with Differential, Blood; Future; Expected date: 07/05/2024 - CRP (C-Reactive Protein); Future; Expected date: 07/05/2024 #2 Hydrocephalus Normal Pressure (HCC) Her CHEMISTRY LECTURER shunt placement is now scheduled for 08/14/2024. She will return for preoperative exam at the end of the month. #3 Hyperlipidemia Mixed Confirmed with the patient that she is taking atorvastatin 80 mg daily. Lipid panel is already ordered to be completed in August 2024. #4 Migraine Headache Continue reduced dose of amitriptyline 100 mg at bedtime. Consider further dose reduction is able to alleviate side effects, most notably dizziness. #5 Chronic Low Back Pain She finds Flexeril beneficial. We again reviewed side effect of dizziness and increased fall risk. She understands this. Discussed using only using as needed. 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 Plan to resume Tramadol as prescribed. She understands this medication may be contributing to dizziness and fall risk. Important to avoid NSAIDs due to CKD stage 3 which has historically worsened to stage 4 when using NSAIDs for pain management.Tylenol historically has been ineffective. Other orders - [facility] office visit (clinic) - albuterol 90 mcg/actuation inhaler; Inhale 2 puffs every 4 (four) hours as needed for shortness of breath., Starting Wed07/05/2024, Until Wed07/10/2025 at 2359, NormalMay substitute generic Proair, generic Ventolin or generic Proventil as appropriate for patient or insurance preference If symptoms worsen or do not improve, patient is instructed to seek further medical attention. All questions have been answered. Patient demonstrated understanding and verbalized agreement with the plan. Total time spent: 40 minutes FOLLOW UP visit ordered in 1 week. KAR Smith, P.A.-C. [1] Patient Active Problem List Diagnosis Hyperlipidemia Mixed [...] History Of Nicotine Dependence Hydrocephalus Normal Pressure (HCC) Parotitis [2] Allergies Allergen Reactions Adhesives [Adhesive] Hives (Reselect Reaction) and Rash Blisters Penicillin Hives (Reselect Reaction) Hospitalized Metformin Other (see comments) GI intolerance [3] Current Outpatient Medications: acetaminophen (TylenoL) 500 mg tablet, Take 2 tablets (1,000 mg total) by mouth every 6 (six) hoursas needed for mild pain or score 1-3 of 10, moderate pain or score 4-6 of 10 or severe pain or score 7-10 of 10., Disp: , Rfl: albuterol 90 mcg/actuation inhaler, Inhale 2 puffs every 4 (four) hours as needed for shortness of breath., Disp: 54 g, Rfl: 3 amitriptyline (ElaviL) 50 mg tablet, Take 2 tablets (100 mg total) by mouth at bedtime., Disp: , Rfl: aspirin [address] tablet, Take 81 mg by mouth at bedtime., Disp: , Rfl: atorvastatin (Lipitor) 80 mg tablet, Take 1 tablet (80 mg total) by mouth daily., Disp: 90 tablet, Rfl: 3 BD Ultra-Fine Short Pen Needle 31 gauge x 5/16 needle, USE DIRECTED, Disp: , Rfl: diclofenac sodium (Voltaren) 1 [...] total) by mouth 2 (two) times a day.,Disp: , Rfl: ipratropium-albuteroL (DUONEB) 0.5-2.5 mg/3 mL [...] MOUTH DAILY, Disp: 360 tablet, Rfl: 3 venlafaxine XR (EFFEXOR-XR) 150 mg 24 hr capsule, TAKE 1 CAPSULE(150 MG) BY MOUTH DAILY, Disp: 90 capsule, Rfl: 3 traMADoL (Ultram) 50 mg tablet, Take 1 tablet (50 mg total) by mouth 2 (two) times a day as needed for severe pain or score 7-10 of 10 Indications: Chronic Pain/Nonacute Pain., Disp: 28 tablet, Rfl: 0 ITECT MARINE documented in this encounter Plan of Treatment Upcoming Encounters Date Type Department Care Team (Late st Contact Info) Description 09/20/2024 3:00 PM CDT Appointment Department of Neurology in [address] [phone] Carmen Petit APRN, C.N.P., M.S.N. [address] [place] [phone] 09/20/2024 3:45 PM CDT Appointment Department of Radiology, [facility], in [place], [place] [address] [place] [phone] Cramen Petit APRN, C.N.P., M.S.N. [address] [place] [phone] 09/21/2024 9:30 AM CDT Office Visit Department of Neurologic Surgery in [address] [phone] Ashley Watts P.A.-CKavya [address] [place] [phone] 10/09/2024 9:30 AM CDT Office Visit Department of Otorhinolaryngology in [place], [place] [address] [place] [phone] Montserrat Jacobs M.D. 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 LAB BLOOD ADD-ON Final Result [facility] [address] [place] [address], [facility] OWAT [facility] in [place] [address], [place] [address] * (ABNORMAL) CBC with Differential, Blood (07/05/2024 10:51 AM ARCHITECT MARINE) Pathologist [facility] Hemoglobin 12.4 11.6 - 15.0 g/dL 07/05/2024 10:55 AM ARCHITECT MARINE FB60 Hematocrit 37.3 35.5 - 44.9 % 07/05/2024 10:55 AM ARCHITECT MARINE FB60 Erythrocytes 4.12 3.92 - 5.13 x10(12)/L 07/05/2024 10:55 AM ARCHITECT MARINE FB60 MCV 90.5 78.2 - 97.9 fL 07/05/2024 10:55 AM ARCHITECT MARINE FB60 RBC Distrib Width 13.0 12.2 - 16.1 % 07/05/2024 10:55 AM ARCHITECT MARINE FB60 Platelet Count 349 157 - 371 x10(9)/L 07/05/2024 10:55 AM ARCHITECT MARINE FB60 Leukocytes 9.8(H) 3.4 - 9.6 x10(9)/L 07/05/2024 10:55 AM ARCHITECT MARINE FB60 Neutrophils 6.07 1.56 - 6.45 x10(9)/L 07/05/2024 10:55 AM ARCHITECT MARINE FB60 Lymphocytes 2.67 0.95 - 3.07 x10(9)/L 07/05/2024 10:55 AM ARCHITECT MARINE FB60 Monocytes 0.77 0.26 - 0.81 x10(9)/L 07/05/2024 10:55 AM ARCHITECT MARINE FB60 Eosinophils 0.23 0.03 - 0.48 x10(9)/L 07/05/2024 10:55 AM ARCHITECT MARINE FB60 Basophils 0.05 0.01 - 0.08 x10(9)/L 07/05/2024 10:55 AM ARCHITECT MARINE FB60 Blood (Blood, Venous) 07/05/2024 10:51 AM ARCHITECT MARINE 07/05/2024 10:51 AM ARCHITECT MARINE Laly LAKHANI, P.A.-C. LAB BLOOD ADD-ON Final Result [facility] [address] [place] [address], [facility] FB60 [facility] in [place] [address] [place] [address] documented in this encounter Visit Diagnoses Diagnosis Parotitis- Primary Hydrocephalus Normal Pressure (HCC) Hyperlipidemia Mixed Migraine Headache documented in this encounter Additional Health Concerns Assessment Noted Time PHQ-9 Depression Total Score: 0 07/05/19 25 10:01 AM ARCHITECT MARINE documented as of this encounter Care Teams Mass Spec Relationship Specialty Start Date End Date Laly Dickey MPAS, P.A.-C. [address] [place] [phone] PCP - General Internal Medicine 07/28/22 documented as of this encounter
--- OUTSIDE RECORDS SUMMARY | 2024-08-15 14:12 | XMS_ITS | Encounter Summary ---
Author Organization [facility] Address [address] [place] [address] Care Team Providers Care Helicopter Utility Aircrewman Name Role Phone Laly Dickey P.A.-CKavya Primary Care Pro vider Encounter Details Date Type Department Care Team (Late st Contact Info) Description 06/20/2024 Results Follow-Up Department of [facility] in [place], [place] [address] [place] [phone] Laly Dickey MPAS P.A.-CKavya 300 [place] [phone] CBC with Differential, Blood, CRP (C-Reactive Protein), Mumps Virus PCR, Buccal Social History Tobacco Use Types Packs/Day Years Used Date Smoking Tobacco: Former Cigarettes 2 30 0 11/13/1975 - 11/12/2005 Passive Smoke Exposure: Past Smokeless Tobacco: Never Alcohol Use Standard Drinks/Week Comments Not Currently 0 (1 standard drink = 0.6 oz pur e alcohol) [facility] Utilities Answer Date Recorded In the past 12 months has e [employer], gas, oil, or water [employer] threatened to shut off services in your [...] your living situation today? I have a [facility] place to live 06/23/2024 Comments No Sex and Gender Information Value Date Recorded Sex Assigned at Female 03/19/2023 10:10 AM CDT Legal Sex Female 1:31 PM RACE STARTER Gender Identity Female 03/19/2023 10:10 AM CDT Sexual Orientation Not on file documented as of this encounter Functional Status * Intimate Partner Violence Question Answer Date of Assessment Author Within the last year, have y ou been humiliated or emotionally abused in other ways by your partner or ex-partner? No 06/23/2024 3:00 PM RACE STARTER Aguilar Combs M.S.N., R.N. Within the last year, have y ou been afraid of your partner or ex-partner? No 06/23/2024 3:00 PM RACE STARTER Deb Combs M.S.N., R.N. Within the last year, have y ou been raped or forced to have any kind of sexual activity by your partner or ex-partner? No 06/23/2024 3:00 PM RACE STARTER Rex Combs, M.S.N., R.N. Within the last year, have y ou been kicked, hit, slapped, or otherwise physically hurt by your partner or ex-partner? No 06/23/2024 3:00 PM Rex Lincoln, M.S.N., R.N. documented as of this encounter Plan of Treatment Upcoming Encounters Date Type Department Care Team (Late st Contact Info) Description 09/20/2024 3:00 PM CDT Appointment Department of Neurology in [place], [place] [address] [place] [address] Carmen Petit APRN, C.N.P., M.S.N. [address] [place] [address] 09/20/2024 3:45 PM CDT Appointment Department of Radiology, [facility], in [place], [place] [address] [place] [address] Carmen Petit APRN, C.N.P., M.S.N. [address] [place] [phone] 09/21/2024 9:30 AM CDT Office Visit Department of Neurologic Surgery in [place], [place] [address] [place] [phone] Ashley Watts P.A.-C. [address] [place] [phone] 10/09/2024 9:30 AM CDT Office Visit Department of Otorhinolaryngology in [place], [place] [address] [place] [phone] Montserrat Jacobs M.D. 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 [address] [place] [phone] PCP - General Internal Medicine 07/28/22 documented as of this encounter
[2024-08-15 14:28] LABS: Basophils Percent Auto 0.2 % (0.0-3.0); Eosinophils Percent Auto 0.6 % (0.0-7.0); Hemoglobin* 11.7 gm/dL (12.0-16.0); Immature Granulocytes Pct Auto 0.2 %; Lymphocytes Percent Auto 7.2 % (20-44); Mean Corpuscular HGB Conc 33 gm/dL (32-36); Mean Corpuscular Hemoglobin 31 pg (26-34); Mean Corpuscular Volume 94 fL (80-100); Monocytes Percent Auto 6.6 % (0.0-11.0); Neutrophils Percent Auto 85.2 % (42.0-72.0); Platelet Count* 261 K/uL (140-440); RDW Coefficient of Variation % 13.2 % (11.5-15.5); Red Blood Count 3.84 m/uL (4.00-5.20); White Blood Count* 15.57 K/uL (4.50-11.00)
[2024-08-15 14:30] LABS: Lactate Sepsis w/Reflex* 1.9 mmol/L (0.5-1.9)
[2024-08-15] MEDS: 0.9 % SODIUM CHLORIDE 1000 ml 1,000 ML IV ×2 (14:30→18:11)
--- NOTE | 2024-08-15 14:30 | CRLHL7_ITS ---
For Patients: As a result of the Century Cures Act, medical imaging exams and procedure reports are released immediately into your electronic medical record. You may view this report before your referring provider. If you have questions, please contact your health care provider. INDICATION: Confusion. 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 TECHNIQUE: CT head without contrast. COMPARISON: CT neck 07/17/2024. FINDINGS: Ventricular catheter via a right parietal approach with tip terminating near the midline appears appropriately positioned. Associated soft tissue gas suggests sequela of recent surgery. The ventricles were incompletely imaged on the comparison neck CT, however, ventricular size has not definitively changed. Mild generalized volume loss and ill-defined low-attenuation in the periventricular and subcortical white matter. No mass effect or midline shift. No CT evidence of acute hemorrhage or infarction. No abnormal extra-axial fluid collection. Intracranial atherosclerosis. Bone windows show no acute calvarial fracture. Paranasal sinuses and orbits as imaged are unremarkable. IMPRESSION: 1. Ventricular catheter via a right parietal approach appears appropriately positioned. Ventricular size has not definitively changed. Ventricles were incompletely visualized on the comparison neck CT. 2. No acute intracranial hemorrhage or midline shift. 3. Mild generalized volume loss and changes of chronic small vessel ischemic disease. Dictated by Zack Farooq MD @ 08/15/2024 5:04:15 PM Please note that all CT scans at this facility use dose modulation, iterative reconstruction, and/or weight-based dosing when appropriate to reduce radiation dose to as low as reasonably achievable. Dictated by: Zack Farooq MD @ 08/15/2024 17:04:39 (Electronically Signed)
[2024-08-15 14:32] LABS: Slide Review Reflex No
--- NOTE | 2024-08-15 14:35 | CRLHL7_ITS ---
For Patients: As a result of the Century Cures Act, medical imaging exams and procedure reports are released immediately into your electronic medical record. You may view this report before your referring provider. If you have questions, please contact your health care provider. Indication: SECURITY ORDERLY shunt placement. Technique: Skull, 2 views. Comparison: None. Findings/impression: Right posterior parietal approach SECURITY ORDERLY shunt is identified distal tip coursing towards the midline likely within the right lateral ventricle. The shunt continues along the right parieto-occipital the subcutaneous soft tissues and into the right neck subcutaneous soft tissues. Visualized osseous structures are unremarkable. Visualized paranasal sinuses are unremarkable. Patient is edentulous. Dictated by Kirsten Lino MD @ 08/15/2024 5:56:41 PM (Electronically Signed)
--- NOTE | 2024-08-15 14:35 | CRLHL7_ITS ---
For Patients: As a result of the Cures Act, medical imaging exams and procedure reports are released immediately into your electronic medical record. You may view this report before your referring provider. If you have questions, please contact your health care provider. INDICATION: Shunt placement. TECHNIQUE: Cervical spine 2 view. COMPARISON: None. FINDINGS: Bones: Alignment is normal. No fractures or significant bone lesions. Joints: Disc spaces and facets demonstrate multilevel degenerative changes.. Soft tissues: LEAD C DEVELOPER shunt is identified with shunt coursing through the right neck subcutaneous soft tissues and along the right chest wall subcutaneous soft tissues.. Dictated by Kirsten Lino MD @ 08/15/2024 5:57:40 PM (Electronically Signed)
--- NOTE | 2024-08-15 14:35 | CRLHL7_ITS ---
For Patients: As a result of the Century Cures Act, medical imaging exams and procedure reports are released immediately into your electronic medical record. You may view this report before your referring provider. If you have questions, please contact your health care provider. Indication: SHUNT PLACEMENT. Technique: Abdomen 2 view. Comparison: None. Findings: MACHINE EGG WASHER shunt: MACHINE EGG WASHER shunt is identified in the right subcutaneous soft tissues coiling and terminating in the right mid abdomen. Bowel: Bowel pattern is normal. The amount of colonic stool is within normal limits. Other: No sign of free air. No sign of soft tissue mass. No suspicious calcifications. Osseous structures are unremarkable for age. Impression: MACHINE EGG WASHER shunt is noted in the right lower quadrant subcutaneous soft tissues coiling and terminating in the right mid abdomen. Dictated by Kirsten Lino MD @ 08/15/2024 5:54:16 PM (Electronically Signed)
--- NOTE | 2024-08-15 14:35 | CRLHL7_ITS ---
For Patients: As a result of the Century Cures Act, medical imaging exams and procedure reports are released immediately into your electronic medical record. You may view this report before your referring provider. If you have questions, please contact your health care provider. INDICATION: CONFUSION, AUTO GLASS WORKER SHUNT PLACED YESTERDAY TECHNIQUE: CT chest without contrast. COMPARISON: Soft tissue CTs dating back to May 2024. FINDINGS: Lungs and Airways: Motion. Right lower lobe dependent predominance and right upper lobe dependent predominant areas of patchy airspace disease. Emphysema. 8 millimeter right upper lobe indeterminate pulmonary nodule. Retained tracheal secretions. Heart and Mediastinum: The visualized portions of the thyroid are normal. No axillary or supraclavicular lymphadenopathy. No mediastinal, hilar or retrocrural lymphadenopathy. Normal heart size. Normal caliber aorta. Atherosclerotic and coronary artery calcifications. Pleura: The pleural spaces are normal. Abdomen: Trace amount of free air in the abdomen should be postprocedural. AUTO GLASS WORKER shunt catheter extends inferiorly off the [id number]-jk-vxkn within the peritoneum. Gallbladder sludge. Bones and soft tissues: Subcutaneous gas tracking anteriorly and inferiorly along the soft tissues likely postprocedural. Right-sided AUTO GLASS WORKER shunt catheter extending inferiorly in the soft tissues. No discrete kinking or catheter fracture. Advanced bilateral pisnc-bmldclt-mtzf-left glenohumeral joint arthrosis. Old right humeral neck fracture. Old right-sided rib fractures. Thoracic spondylosis. IMPRESSION: 1. Right lower lobe dependent predominance and right upper lobe dependent predominant areas of patchy airspace disease. Differential considerations include infection versus aspiration. Recommend unenhanced chest CT in 3 months to document resolution. 2. 8 millimeter right upper lobe indeterminate pulmonary nodule. Attention on follow-up exam to document stability and assess malignant potential. 3. Trace amount of free air in the abdomen should be postprocedural. AUTO GLASS WORKER shunt catheter extends inferiorly off the wjehk-af-jymq within the peritoneum. Subcutaneous gas tracking anteriorly and inferiorly along the soft tissues likely postprocedural. Right-sided AUTO GLASS WORKER shunt catheter extending inferiorly in the soft tissues. No discrete kinking or catheter fracture. Please note that all CT scans at this facility use dose modulation, iterative reconstruction, and/or weight-based dosing when appropriate to reduce radiation dose to as low as reasonably achievable. Dictated by Walter Orellana MD @ 08/15/2024 4:58:54 PM (Electronically Signed)
--- NOTE | 2024-08-15 14:35 | CRLHL7_ITS ---
For Patients: As a result of the Century Cures Act, medical imaging exams and procedure reports are released immediately into your electronic medical record. You may view this report before your referring provider. If you have questions, please contact your health care provider. INDICATION: Shunt placement. TECHNIQUE: Chest 1 views. COMPARISON: None. FINDINGS: Cardiovascular and mediastinum: Cardiomediastinal silhouette is within normal limits. Lungs and pleural spaces: Lungs are clear. No sign of pleural effusion. No pneumothorax. Bones and soft tissues: OUTBOUND SUPERVISOR shunt is visualized coursing along the right chest wall.. No fractures identified along its course. IMPRESSION: No acute cardiopulmonary process identified. OUTBOUND SUPERVISOR shunt identified along the right chest wall. Dictated by Kirsten Lino MD @ 08/15/2024 5:43:06 PM (Electronically Signed)
[2024-08-15 14:43] LABS: Albumin* 4.7 g/dL (3.3-5.0); Chloride* 95 mmol/L (96-114)
[2024-08-15 14:44] LABS: Potassium* 4.3 mmol/L (3.6-5.1); Sodium* 132 mmol/L (135-149)
[2024-08-15 14:46] LABS: Anion Gap 10 mEq/L (7-15); Aspartate Amino Transferase* 32 U/L (12-35); Bilirubin Total* 0.8 mg/dL (0.1-1.5); Blood Urea Nitrogen* 16 mg/dL (7-30); Carbon Dioxide* 27 mmol/L (20-32); Creatinine* 1.4 mg/dL (0.5-1.5); Est. Creatinine Clearance* 37.18; Estimated Glomerular Filt Rate 40 ml/min; Total Protein* 7.7 g/dL (6.0-8.3)
[2024-08-15 14:47] LABS: Alanine Aminotransferase* 26 U/L (4-35); Alkaline Phosphatase* 68 U/L (40-150); Calcium* 9.1 mg/dL (8.4-10.6); Glucose* 169 mg/dL (60-115)
--- OUTSIDE RECORDS SUMMARY | 2024-08-15 14:47 | XMS_ITS | Encounter Summary ---
Author Organization [facility] Address [address] [place] [address] [address] [place] [address] Care Team Providers Care Ballaster Name Role Phone Gen Michaels MD Primary Care Provider [phone] Ambrosio Hill MD Primary Care Provider [phone] Ambrosio Hill MD Unavailable Provider, No Attributed RESOURCE Unavailable Unavailable Ambrosio Hill MD Unavailable + Ambrosio Hill MD Unavailable Natalie Estrada MD Unavailable [phone] Jakub Barr MD Unavailable [phone] Merary Ware FACILITY ENGINEER-EARLY MORNING Unavailable [phone] Provider, No Attributed RESOURCE Unavailable Unavailable Ambrosio Hill MD Unavailable + Provider, No Attributed RESOURCE Unavailable Unavailable Encounter Details Date Type Department Care Team (Late st Contact Info) Description 12/18/2013 Dictated / No Visit [facility] FAMILY MED[facility] [address] [place] [address] Gen Michaels MD [address] [place], [place] [id number] Social History Tobacco Use Types Packs/Day Years [...] of this encounter Progress Notes * Gen Michaesl MD - 12/18/2013 3:58 PM CDT 12/18/2013 RAJINDER VERMA [address] [place] [address] MR#: [id number] CSN: Dear Rajinder: I have received the [...] P.S. If you have signed up for [facility], please message me that you have received this letter. [id number] documented in this encounter Plan of Treatment Not on file documented as of this encounter Visit Diagnoses Not on filedocumented in this encounter Additional Health Concerns Infection Onset Date Last Indicated Resolved Time COVID-19 04/23/2020 04/23/2020 05/03/2020 11:5 7 PM ANDROID ARCHITECT documented as of this encounter Care Teams Ballaster Relationship Specialty Start Date End Date Gen Michaels MD [address] [place] [place] [address] PCP - General Family Medicine 07/25/13 07/05/14 Ambrosio Hill MD [address] [place] [address] PCP - General Family Medicine 07/06/14 03/04/22 Ambrosio Hill MD [address] [facility] [place] [address] PCP - Attributed Provider 01/30/16 04/19/16 Provider, No Attributed, RESOURCE [address] PCP - Attributed Provider 04/20/16 04/21/16 Ambrosio Hill MD [address] [place] [address] PCP - Attributed Provider 04/22/16 11/21/20 Ambrosio Hill MD [address] [place] [address] PCP - Attributed Provider 11/22/20 03/23/22 Provider, No Attributed, RESOURCE [address] PCP - Attributed Provider 03/24/22 05/26/22 Ambrosio Hill MD [address] [place] [address] PCP - Attributed Provider 05/27/22 02/22/24 Provider, No Attributed, RESOURCE [address] PCP - Attributed Provider 02/23/24 Natalie Estrada MD [address] [place] [address] Nephrology (Internal Medicine) 09/18/21 Jakub Barr MD [address] [place] [address] Orthopedic Surgery 09/18/21 Merary Ware APRN-EARLY MORNING [address] [place] [id number] EARLY MORNING - Oncology 09/18/21 documented as of this encounter
--- OUTSIDE RECORDS SUMMARY | 2024-08-15 14:47 | XMS_ITS | Clinical Summary ---
Author Organization [facility] Address [address] [place] [address] Care Team Providers Care Microwave Supervisor Name Role Phone Laly Dickey P.A.-C. Primary Care Pro vider Source Comments Patient records contain information from all sites at [facility]. For routine questions regarding patient records, call [phone] during business hours, M-F 8:00 AM - 5:00 PM Central Time. Record requests for emergency care only can be directed to [phone] at any time.[facility] Allergies Active Allergy Reactions Criticality Noted [...] 09/08/2022 Overview (01/20/2023): Consult with Orthopedics in [place] August 2022. Patient elected for surgical intervention [...] CDT Anesthesia Event RST ROMB MAIN OR [facility] [address] [place] [phone] Agatha Chandler M.D. Omar, Ibrahim A, M.D. 5 7:50 AM CDT - 5 10:52 AM CDT Surgery RST ROMB MAIN OR [address] [place] [phone] Agustin Granda M.D., Ph.D. ventriculoperitoneal shunt placement. 5 6:59 AM CDT - 5 11:59 PM CDT Hospital Encounter Department of Radiology, [facility], in [address] [phone] Agustin Granda M.D., Ph.D. Hydrocephalus Normal Pressure (HCC); Preoperative Exam Discharge Disposition: Home or Self Care 5 5:38 AM CDT - 5 11:21 AM CDT Hospital Encounter [facility], [facility], [facility], Ninth Floor [address] [place] [phone] Agustin Granda M.D., Ph.D. Discharge Disposition: Home or Self Care 5 Clinical Communication RST HIM [address] [place] [phone] Agustin Granda M.D., Ph.D. Post Hospital Follow-up 5 2:30 PM CDT Comprehensive Visit Department of Otorhinolaryngology in [place], [place] [address] [place] [phone] Montserrat Jacobs M.D. Acute Sialoadenitis 5 1:30 PM CDT Comprehensive Visit Division of Trauma Critical Care and General Surgery in [place], [place] [address] [place] [phone] gAustin Granda M.D., Ph.D. Aaliyah Lazo M.D. Hydrocephalus Normal Pressure (HCC) (Primary Dx); Preoperative Exam 5 2:05 PM CDT Ancillary Procedure Department of Neurology 5 1:35 PM CDT - 5 3:02 PM CDT Hospital Encounter Department of Neurology in [place], [place] [address] [place] [phone] Agustin Granda M.D., Ph.D. Ricardo Nayak M.D. Hydrocephalus Normal Pressure (HCC) Discharge Disposition: Home or Self Care 5 9:50 AM CDT - 5 11:59 PM CDT Hospital Encounter Department of Laboratory Medicine in [address] [phone] Agustin Granda M.D., Ph.D. Hydrocephalus Normal Pressure (HCC); Preoperative Exam; Chronic Kidney Disease Stage 4 Glomerular Filtration Rate 15-29 (HCC) Discharge Disposition: Home or Self Care 5 3:15 PM CDT Clinical Communication Virtual Review in [place], [place] 200 [place] [address] Pre-visit Intake [address] [place] [address] AND [facility] [address] [place] [address] Walter Mcgovern M.D. Acute Sialoadenitis (Primary Dx) 5 Refill Department of Community Internal Medicine in [address] [phone] Laly Dickey MPAS, P.A.-C. Med Refill 5 Results Follow-Up RST [address] [phone] Mona Sneed M.D., M.H.A. Bacteria / Cherry Culture, Blood #1, Bacteria / Cherry Culture, Blood #2, Fungal Culture, Routine 5 10:43 AM FOUNTAIN OPERATOR - 5 11:59 PM FOUNTAIN OPERATOR Hospital Encounter Department of Laboratory Medicine in [address] [phone] Laly Dickey MPAS, P.A.-C. Parotitis Discharge Disposition: Home or Self Care 5 10:30 AM FOUNTAIN OPERATOR Office Visit Department of Community Internal Medicine in [address] [phone] Laly Dickey MPAS, P.A.-C. Parotitis (Primary Dx); Hydrocephalus Normal Pressure (HCC); Hyperlipidemia Mixed; Migraine Headache 5 Clinical Communication Department of Community Internal Medicine in [address] [phone] Laly Dickey MPAS, P.A.-C. 5 Results Follow-Up Department of Community Internal Medicine in [address] [phone] Laly Dickey MPAS, P.A.-C. CBC with Differential, Blood 5 Clinical Communication Department of Community Internal Medicine in [place], [place] [address] [place] [phone] Laly Dickey MPAS, P.A.-C. Communication 5 Clinical Communication Section of Infectious Diseases in [place], [place] [address] [place] [phone] Nunu Alford M.B.B.S. 5 Clinical Communication Department of Neurologic Surgery in [place], [place] [address] [place] [phone] Brina Rich RFrancesco 5 Orders Only Department of Neurologic Surgery in [place], [place] [address] [place] [phone] Judith Sellers Hydrocephalus Normal Pressure (HCC) (Primary Dx) 5 Clinical Communication Department of Community Internal Medicine in [place], [place] [address] [place] [phone] Laly Dickey MPAS, P.A.-C. PandaDoc Form ([facility] - test strips ) 5 Clinical Communication Department of Neurologic Surgery in [place], [place] [address] [place] [address] Agustin Granda M.D., Ph.D. 5 Clinical Communication Department of Community Internal Medicine in [place], [place] [address] [place] [phone] Clarice Rivera RJossy. Post Hospital Follow-up 5 1:39 PM FOUNTAIN OPERATOR - 5 1:05 PM FOUNTAIN OPERATOR Hospital Encounter [facility], [facility], [facility], Third Floor [address] [place] [phone] Seble, Vee S, MSkyler Cox M.D. Dugani, Chandrasagar, M.D., Ph.D. Decline Functional Status [R53.81] (Primary Dx); Parotitis Discharge Disposition: Home or Self Care 5 Intake [facility] 5 10:32 AM FOUNTAIN OPERATOR - 5 11:59 PM FOUNTAIN OPERATOR Hospital Encounter Department of Laboratory Medicine in [address] [phone] Laly Dickey MPAS, P.A.-C. Parotitis Discharge Disposition: Home or Self Care 5 9:20 AM FOUNTAIN OPERATOR Office Visit Department of Community Internal Medicine in [address] [phone] Laly Dickey MPAS, P.A.-C. 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 CBC with Differential, Blood, CRP (C-Reactive Protein), Mumps Virus PCR, Buccal 5 Clinical Communication Department of Community Internal Medicine in [address] [phone] Laly Dickey MPAS, P.A.-C. Communication 5 Nurse Triage Department of Community Internal Medicine in [address] [phone] Indira Carrillo R.N. Swollen Glands 5 9:23 AM FOUNTAIN OPERATOR - 5 11:59 PM FOUNTAIN OPERATOR Hospital Encounter Department of Laboratory Medicine in [address] [phone] Laly iDckey MPAS, P.A.-C. Diabetes Mellitus Type 2 With Diabetic Polyneuropathy (HCC) Discharge Disposition: Home or Self Care 5 9:23 AM FOUNTAIN OPERATOR - 5 11:59 PM FOUNTAIN OPERATOR Hospital Encounter Department of Laboratory Medicine in [address] [phone] Laly Dickey MPAS, P.A.-C. Chronic Kidney Disease (CKD), Stage 3b Glomerular Filtration Rate (GFR) 30 To 44 (HCC) Discharge Disposition: Home or Self Care 5 8:40 AM FOUNTAIN OPERATOR Office Visit Department of Community Internal Medicine in [address] [phone] Laly Dickey MPAS, P.A.-C. Obesity Body Mass [...] Of Falling 5 Clinical Communication Pharmacy Prior [facility] [phone] Eli Baldwin I. 5 Clinical Communication Department of Community Internal Medicine in [address] [phone] Laly Dickey MPAS, P.A.-C. Med Question 5 Refill Department of Community Internal Medicine in [address] [phone] Laly Dickey MPAS, P.A.-C. Med Refill 5 7:41 AM FOUNTAIN OPERATOR - 5 11:59 PM FOUNTAIN OPERATOR Hospital Encounter Department of Laboratory Medicine in [address] [phone] Laly Dickey MPAS, P.A.-C. Diabetes Mellitus Type 2 With Diabetic Polyneuropathy (HCC); Chronic Kidney Disease (CKD), Stage 3b Glomerular Filtration Rate (GFR) 30 To 44 (HCC); Diabetes Mellitus Type 2 With Diabetic Polyneuropathy (HCC) Discharge Disposition: Home or Self Care 5 Refill Department of Community Internal Medicine in [address] [phone] Laly Dickey MPAS, P.A.-C. Med Refill 5 Refill Department of Community Internal Medicine in [address] [phone] Laly Dickye MPAS, P.A.-C. Med Refill 4 Refill Department of Community Internal Medicine in [address] [phone] Laly Dickey MPAS, P.A.-C. Med Refill 4 Refill Department of Community Internal Medicine in [address] [phone] Laly Dickey MPAS, P.A.-C. Med Refill from [...] Alive Brother 2 Med Alive Brother 3 Kra Alive Daughter Lea Alive Father Quinton Mother [...] drink = 0.6 oz pur e alcohol) [facility] Utilities Answer Date Recorded In the past 12 months has e [employer], gas, oil, or water [employer] threatened to shut off services in your [...] your living situation today? I have a [facility] place to live 08/14/2024 Comments No Sex and Gender Information Value Date Recorded Sex Assigned at Female 03/19/2023 10:10 AM CDT Legal Sex Female 1:31 PM FOUNTAIN OPERATOR Gender Identity Female 03/19/2023 10:10 AM [...] PM CDT Appointment Department of Neurology in [place], [place] [address] [place] [phone] Carmen Petit APRN, C.N.P., M.S.N. [address] [place] [phone] 09/20/2024 3:45 PM CDT Appointment Department of Radiology, [facility], in [place], [place] [address] [place] [phone] Carmen Petit APRN, C.N.P., M.S.N. [address] [place] [phone] 09/21/2024 9:30 AM CDT Office Visit Department of Neurologic Surgery in [place], [place] [address] [place] [phone] Ashley Watts P.A.-C. [address] [place] [phone] 10/09/2024 9:30 AM CDT Office Visit Department of Otorhinolaryngology in [place], [place] [address] [place] [address] Montserrat Jacobs M.D. [address] [place] [phone] Scheduled Procedures Name Priority Associated Diagnoses Date/Ti [...] this topic Medical Devices Implanted Type Area Media Production Manager Device Identifier Shelf Expiration Date Model / Serial / Lot Cath Josie Vines Vntr 23 - [id number] Implanted:Qty: 1 on 08/14/2024 by Agustin Granda M.D., Ph.D. at [facility] CSF Management Device Brain Codman 05/30/2025 [id number] / / [id number] Shnt Vlv Ventric Csf W/Sphngrd - [id number] Implanted:Qty: 1 on 08/14/2024 by Agustin Granda M.D., Ph.D. at [facility] CSF Management Device Neck Integra 11/27/2028 [id number] / / [id number] Cath Peritoneal Antibiotic - [id number] Implanted:Qty: 1 on 08/14/2024 by Aaliyah Lazo M.D. at [facility] Hardware e.g. pins/screws/r ods Abdomen Medtronic 11/08/2025 [id number] / / [id number] Knee Implant Knee Implant Bilateral: Knee [...] outpatients) 08/14/2024 12:44 PM CDT DX ADULT INSTRUMENT AND CONTROLS TECHNICIAN SHUNT SERIES RAD - Routine (most inpatients [...] OUTSIDE CT NEURO Routine 07/17/2024 2:15 PM FOUNTAIN OPERATOR C-REACTIVE PROTEIN (CRP), S/P Routine 07/05/2024 10:51 AM FOUNTAIN OPERATOR Parotitis CBC WITH DIFFERENTIAL, B Routine 07/05/2024 10:51 AM FOUNTAIN OPERATOR Parotitis GLUCOSE POCT, B Routine 06/25/2024 11:59 AM FOUNTAIN OPERATOR BASIC METABOLIC PANEL, S/P Routine 06/25/2024 7:39 AM FOUNTAIN OPERATOR CBC WITH DIFFERENTIAL, B Routine 06/25/2024 7:39 AM FOUNTAIN OPERATOR GLUCOSE POCT, B Routine 06/25/2024 7:34 AM FOUNTAIN OPERATOR GLUCOSE POCT, B Routine 06/25/2024 4:42 AM FOUNTAIN OPERATOR GLUCOSE POCT, B Routine 06/24/2024 7:46 PM FOUNTAIN OPERATOR GLUCOSE POCT, B Routine 06/24/2024 3:53 PM FOUNTAIN OPERATOR GLUCOSE POCT, B Routine 06/24/2024 12:05 PM FOUNTAIN OPERATOR ECG Routine 06/24/2024 11:24 AM FOUNTAIN OPERATOR GLUCOSE POCT, B Routine 06/24/2024 7:44 AM FOUNTAIN OPERATOR GLUCOSE POCT, B Routine 06/24/2024 3:02 AM FOUNTAIN OPERATOR CBC WITH DIFFERENTIAL, B STAT 06/23/2024 11:42 PM FOUNTAIN OPERATOR GLUCOSE POCT, B Routine 06/23/2024 11:29 PM FOUNTAIN OPERATOR BASIC METABOLIC PANEL, S/P Routine 06/23/2024 10:35 PM FOUNTAIN OPERATOR GLUCOSE POCT, B Routine 06/23/2024 7:57 PM FOUNTAIN OPERATOR GLUCOSE POCT, B Routine 06/23/2024 4:36 PM FOUNTAIN OPERATOR GLUCOSE POCT, B Routine 06/23/2024 11:18 AM FOUNTAIN OPERATOR GLUCOSE POCT, B Routine 06/23/2024 8:57 AM FOUNTAIN OPERATOR POTASSIUM, S/P STAT 06/23/2024 7:07 AM FOUNTAIN OPERATOR CBC WITH DIFFERENTIAL, B Timed 06/23/2024 4:55 AM FOUNTAIN OPERATOR BASIC METABOLIC PANEL, S/P Timed 06/23/2024 4:55 AM FOUNTAIN OPERATOR VANCOMYCIN, TROUGH, S Routine 06/23/2024 4:55 AM FOUNTAIN OPERATOR GLUCOSE POCT, B Routine 06/23/2024 4:29 AM FOUNTAIN OPERATOR GLUCOSE POCT, B Routine 06/22/2024 11:07 PM FOUNTAIN OPERATOR GLUCOSE POCT, B Routine 06/22/2024 8:24 PM FOUNTAIN OPERATOR GLUCOSE POCT, B Routine 06/22/2024 3:37 PM FOUNTAIN OPERATOR GLUCOSE POCT, B Routine 06/22/2024 11:49 AM FOUNTAIN OPERATOR MRSA/STAPHYLOCOCCUS AUREUS, NASAL, BY PCR Routine 06/22/2024 7:46 AM FOUNTAIN OPERATOR GLUCOSE POCT, B Routine 06/22/2024 7:41 AM FOUNTAIN OPERATOR PATIENT STATUS, ABG Timed 06/22/2024 4 :29 AM FOUNTAIN OPERATOR ABG W/COOX Timed 06/22/2024 4:29 AM FOUNTAIN OPERATOR CYSTATIN C WITH EGFR Timed 06/22/2024 4:28 AM FOUNTAIN OPERATOR BASIC METABOLIC PANEL, S/P Timed 06/22/2024 4:28 AM FOUNTAIN OPERATOR CBC WITH DIFFERENTIAL, B Timed 06/22/2024 4:28 AM FOUNTAIN OPERATOR GLUCOSE POCT, B Routine 06/22/2024 4:27 AM FOUNTAIN OPERATOR MAGNESIUM, S Routine 06/22/2024 4:24 AM FOUNTAIN OPERATOR PHOSPHORUS (INORGANIC), S Routine 06/22/2024 4:24 AM FOUNTAIN OPERATOR GLUCOSE POCT, B Routine 06/22/2024 12:06 AM FOUNTAIN OPERATOR MYCOBACTERIAL CULTURE, V Routine 06/21/2024 10:35 PM FOUNTAIN OPERATOR ACID FAST SMEAR FOR MYCOBACTERIUM Routine 06/21/2024 10:35 PM FOUNTAIN OPERATOR FUNGAL CULTURE, ROUTINE Routine 06/21/2024 10:35 PM FOUNTAIN OPERATOR FUNGAL SMEAR Routine 06/21/2024 10:35 PM FOUNTAIN OPERATOR BACTERIAL CULTURE, AEROBIC + SUSC, RESP Routine 06/21/2024 10:35 PM FOUNTAIN OPERATOR GRAM STAIN Routine 06/21/2024 10:35 PM FOUNTAIN OPERATOR GLUCOSE POCT, B Routine 06/21/2024 8:[address] HEAD WITHOUT IV CONTRAST RAD - Semiurgent (Fast; most ED patients; some inpatients) 06/21/2024 6:23 PM FOUNTAIN OPERATOR GLUCOSE POCT, B Routine 06/21/2024 5:40 PM FOUNTAIN OPERATOR BACTERIAL CULTURE, AEROBIC + SUSC Routine 06/21/2024 5:26 PM FOUNTAIN OPERATOR MC ANE INVASIVE CATHETER Routine 06/21/2024 4:24 PM FOUNTAIN OPERATOR DIPSTICK, U Routine 06/21/2024 3:42 PM FOUNTAIN OPERATOR PH, U Routine 06/21/2024 3:42 PM FOUNTAIN OPERATOR OSMOLALITY, U Routine 06/21/2024 3:42 PM FOUNTAIN OPERATOR MICROSCOPIC AUTOMATED Routine 06/21/2024 3:42 PM FOUNTAIN OPERATOR URINALYSIS WITH MICROSCOPIC Routine 06/21/2024 3:42 PM FOUNTAIN OPERATOR DX ABDOMEN PORTABLE ANTERIOR POSTERIOR 1 VIEW RAD - Routine (most inpatients and all outpatients) 06/21/2024 3:10 PM FOUNTAIN OPERATOR PATIENT STATUS STAT 06/21/2024 2:27 PM FOUNTAIN OPERATOR VENOUS BLOOD GAS W/COOX, B STAT 06/21/2024 2:27 PM FOUNTAIN OPERATOR BACTERIA / CHERRY CULTURE, BLOOD STAT 06/21/2024 2:27 PM FOUNTAIN OPERATOR GLUCOSE POCT, B Routine 06/21/2024 2:24 PM FOUNTAIN OPERATOR LACTATE FOR SEPSIS WITH REFLEX STAT 06/21/2024 2:14 PM FOUNTAIN OPERATOR CBC WITH DIFFERENTIAL, B STAT 06/21/2024 2:14 PM FOUNTAIN OPERATOR BASIC METABOLIC PANEL, S/P STAT 06/21/2024 2:14 PM FOUNTAIN OPERATOR BACTERIA / CHERRY CULTURE, BLOOD STAT 06/21/2024 2:14 PM FOUNTAIN OPERATOR MECHANICAL VENTILATOR Routine 06/21/2024 1:41 PM FOUNTAIN OPERATOR MECHANICAL VENTILATOR Routine 06/21/2024 1:41 PM FOUNTAIN OPERATOR MECHANICAL VENTILATOR Routine 06/21/2024 1:41 PM FOUNTAIN OPERATOR MECHANICAL VENTILATOR Routine 06/21/2024 1:41 PM FOUNTAIN OPERATOR MECHANICAL VENTILATOR Routine 06/21/2024 1:41 PM FOUNTAIN OPERATOR MECHANICAL VENTILATOR Routine 06/21/2024 1:41 PM FOUNTAIN OPERATOR MECHANICAL VENTILATOR Routine 06/21/2024 1:41 PM FOUNTAIN OPERATOR OUTSIDE CT NEURO Routine 06/21/2024 9:40 AM FOUNTAIN OPERATOR OUTSIDE CT NEURO Routine 06/20/2024 5:15 PM FOUNTAIN OPERATOR C-REACTIVE PROTEIN (CRP), S/P Routine 06/20/2024 10:42 AM FOUNTAIN OPERATOR Parotitis CBC WITH DIFFERENTIAL, B Routine 06/20/2024 10:42 AM FOUNTAIN OPERATOR Parotitis MUMPS VIRUS PCR, BUCCAL Routine 06/20/2024 10:32 AM FOUNTAIN OPERATOR Parotitis BASIC METABOLIC PANEL, S/P Routine 06/14/2024 9:31 AM FOUNTAIN OPERATOR Diabetes Mellitus Type 2 With Diabetic Polyneuropathy (HCC) ALBUMIN, RANDOM, U Routine 06/14/2024 9: 30 AM FOUNTAIN OPERATOR Chronic Kidney Disease (CKD), Stage 3b Glomerular Filtration Rate (GFR) 30 To 44 (HCC) PHOSPHORUS (INORGANIC), S Routine 06/07/2024 8:02 AM FOUNTAIN OPERATOR Chronic Kidney Disease (CKD), Stage 3b Glomerular Filtration Rate (GFR) 30 To 44 (HCC) VITAMIN D, IMMUNOASSAY, TOTAL, S Routine 06/07/2024 8:02 AM FOUNTAIN OPERATOR Chronic Kidney Disease (CKD), Stage 3b Glomerular Filtration Rate (GFR) 30 To 44 (HCC) PARATHYROID HORMONE (PTH), S Routine 06/07/2024 8:02 AM FOUNTAIN OPERATOR Chronic Kidney Disease (CKD), Stage 3b Glomerular Filtration Rate (GFR) 30 To 44 (HCC) CBC WITH DIFFERENTIAL, B Routine 06/07/2024 8:02 AM FOUNTAIN OPERATOR Chronic Kidney Disease (CKD), Stage 3b Glomerular Filtration Rate (GFR) 30 To 44 (HCC) LIPID PANEL, S Routine 06/07/2024 8:02 AM FOUNTAIN OPERATOR Diabetes Mellitus Type 2 With Diabetic Polyneuropathy (HCC) BASIC METABOLIC PANEL, S/P Routine 06/07/2024 8:02 AM FOUNTAIN OPERATOR Chronic Kidney Disease (CKD), Stage 3b Glomerular Filtration Rate (GFR) 30 To 44 (HCC) HEMOGLOBIN A1C, B Routine 06/07/2024 8:0 2 AM FOUNTAIN OPERATOR Diabetes Mellitus Type 2 With Diabetic Polyneuropathy (HCC) ALBUMIN, RANDOM, U Routine 06/07/2024 8: 00 AM FOUNTAIN OPERATOR Diabetes Mellitus Type 2 With Diabetic Polyneuropathy [...] LAB POCT ORDERABLES-MANUAL Marina l Result POC [facility] [address] [place] [address], [email or web address]] PCLX [facility] [address] [place] [address] * CT Head without IV Contrast (08/14/2024 12:44 PM CDT) Only the most recent of2 resultswithin the time period is included. Anatomical Region Laterality Modality Head, Neuroradiology RST LOS , Neuroradiology ARZ [facility], Neuroradiology FLA LOS N/A Computed Tomography, Compute [...] There is associated post procedural subcutaneous emphysema. Payp-[id number] cerebral leukoaraiosis. Moderate generalized cerebral volume loss [...] neck. There is associated post proceduralsubcutaneous emphysema. [id number] cerebral leukoaraiosis. Moderate generalized cerebralvolume loss with [...] CT PROCEDURES Final Result * DX Adult INSTRUMENT AND CONTROLS TECHNICIAN Shunt Series (08/14/2024 12:24 PM CDT) Anatomical Region Laterality Modality Head, Chest, Abdomen, Neuror adiology RST LOS, Neuroradiology ARZ LOS, Muskuloskeletal FLA LOS N/A Digita l Radiography Impressions 08/14/2024 12:51 PM CDT Right posterior parietal approach Codman Certas plus programmable INSTRUMENT AND CONTROLS TECHNICIAN shunt. Tubing courses along the right neck and hemithorax before terminating within the right upper quadrant of the abdomen. No focal discontinuity. No acute findings within the visualized chest and abdomen. Multiple chronic right rib fractures. Multilevel spondylitic changes throughout the spine. Narrative 08/14/2024 12:51 PM CDT EXAM: DX ADULT INSTRUMENT AND CONTROLS TECHNICIAN SHUNT SERIES Procedure Note Cole Walker D.O. - 08/14/2024 EXAM: DX ADULT INSTRUMENT AND CONTROLS TECHNICIAN SHUNT SERIES IMPRESSION: Right posterior parietal approach [...] ETT location: oral VL device: glide scope Tuthill scope blade size: 3 Tube size: 7 [...] NON RAD IMAGING PROCE DURES Final Result [facility] NA * NEUROLOGY GAIT DISORDERS LABORATORY (08/09/2024 [...] 08/09/2024 8:22 AM CDT ETRM Testing Location [place] DEFAULT 08/09/2024 7:30 AM CDT ETRM Blood (Blood, Venous) 08/08/2024 10:02 AM CDT 08/09/2024 7:30 AM CDT us Agustin Granda M.D., Ph.D. LAB BLOOD BANK TEST ORDERABLES Final Result [facility] [address] [place] [address], [facility] [[email or web address]] ETRM [facility] [address] [place] [address] * (ABNORMAL) Basic Metabolic Panel (08/08/2024 10:02 AM CDT) Only the most recent of8 resultswithin the time period is included. Pathologist [facility] Potassium, P 4.7 3.6 - 5.2 mmol/L [...] BLOOD ADD-ON Final Result Performing Organization Address City/[facility] [address]/[facility] Co de Phone Number [facility] [address] [place] [address], [place] OWAT [facility] [place] [address] [place] [address] * CT SOFT TISSUE NECK W CON-Outside CT Neuro (07/17/2024 2:15 PM FOUNTAIN OPERATOR) Only the most recent of3 resultswithin the time period is included. Narrative IIMS - 08/01/2024 12:40 PM FOUNTAIN OPERATOR This order has been created and auto-finalized [...] PROCEDURES Final R esult Performing Organization Address City/[facility] [address]/[facility] Co de Phone Number IIDE NA * (ABNORMAL) CBC with Differential, Blood (07/05/2024 10:51 AM FOUNTAIN OPERATOR) Only the most recent of8 resultswithin the time period is included. Hemoglobin 12.4 11.6 - 15.0 g/dL 07/05/2024 10:55 AM FOUNTAIN OPERATOR FB60 Hematocrit 37.3 35.5 - 44.9 % 07/05/2024 10:55 AM FOUNTAIN OPERATOR FB60 Erythrocytes 4.12 3.92 - 5.13 x10(12)/L 07/05/2024 10:55 AM FOUNTAIN OPERATOR FB60 MCV 90.5 78.2 - 97.9 fL 07/05/2024 10:55 AM FOUNTAIN OPERATOR FB60 RBC Distrib Width 13.0 12.2 - 16.1 % 07/05/2024 10:55 AM FOUNTAIN OPERATOR FB60 Platelet Count 349 157 - 371 x10(9)/L 07/05/2024 10:55 AM FOUNTAIN OPERATOR FB60 Leukocytes 9.8(H) 3.4 - 9.6 x10(9)/L 07/05/2024 10:55 AM FOUNTAIN OPERATOR FB60 Neutrophils 6.07 1.56 - 6.45 x10(9)/L 07/05/2024 10:55 AM FOUNTAIN OPERATOR FB60 Lymphocytes 2.67 0.95 - 3.07 x10(9)/L 07/05/2024 10:55 AM FOUNTAIN OPERATOR FB60 Monocytes 0.77 0.26 - 0.81 x10(9)/L 07/05/2024 10:55 AM FOUNTAIN OPERATOR FB60 Eosinophils 0.23 0.03 - 0.48 x10(9)/L 07/05/2024 10:55 AM FOUNTAIN OPERATOR FB60 Basophils 0.05 0.01 - 0.08 x10(9)/L 07/05/2024 10:55 AM FOUNTAIN OPERATOR FB60 Blood (Blood, Venous) 07/05/2024 10:51 AM FOUNTAIN OPERATOR 07/05/2024 10:51 AM FOUNTAIN OPERATOR us Laly LAKHANI, P.A.-C. LAB BLOOD ADD-ON Final Result [facility] [address] [facility] [place] [address], [facility] [[email or web address]] FB60 [facility] [place] [address] [place] [address] * CRP (C-Reactive Protein) (07/05/2024 10:51 AM FOUNTAIN OPERATOR) Only the most recent of2 resultswithin the time period is included. C-Reactive Protein (CRP), P <3.0 <5.0 mg/L 07/05/2024 1:56 PM FOUNTAIN OPERATOR OWAT Blood (Blood, Venous) 07/05/2024 10:51 AM FOUNTAIN OPERATOR 07/05/2024 1:09 PM FOUNTAIN OPERATOR us Laly Deajigar LAKHANI P.A.-C. LAB BLOOD ADD-ON Final Result Performing Organization Address City/[facility] [address]/[facility] Co de Phone Number [facility] [address] [place] [address], [place] OWAT [facility] [place] [address] [place] [address] * ECG 12 Lead (06/24/2024 11:24 AM FOUNTAIN OPERATOR) Ventricular Rate ECG/Min 83 BPM MUSE IA Interval 102 ms MUSE QRSD Interval 116 ms MUSE QT Interval 356 ms MUSE QTC Interval 418 ms MUSE P Troutman 11 degrees MUSE R Troutman 7 degrees MUSE T Wave Troutman 13 degrees MUSE 06/24/2024 11:2 4 AM FOUNTAIN OPERATOR 06/25/2024 1:57 PM FOUNTAIN OPERATOR Impressions MUSE - 06/24/2024 11:43 AM FOUNTAIN OPERATOR Sinus rhythm with short IA Non-specific intra-ventricular conduction delay T wave abnormality, consider anterolateral ischemia No previous ECGs available Reviewed by MARCELLE Cox Narrative Procedure Note Lamberto Beasley M.D. - 06/25/2024 IMPRESSION: Sinus rhythm with short IA Non-specific intra-ventricular conduction delay T wave abnormality, consider anterolateral ischemia No previous ECGs available Reviewed by MARCELLE Cox us Shruthi Shelby P.A.-C. ECG ORDERABLES Edited Result - Final MUSE NA * Potassium (06/23/2024 7:07 AM FOUNTAIN OPERATOR) Potassium, S 4.2 3.6 - 5.2 mmol/L 06/23/2024 8:01 AM FOUNTAIN OPERATOR DTL Blood 06/23/2024 7:07 AM FOUNTAIN OPERATOR 06/23/2024 7:49 AM FOUNTAIN OPERATOR us Nik Elam M.D., M.B.A. LAB BLOOD ADD-ON Fi nal Result Performing Organization Address City/[facility]/ZIP Co de Phone Number [facility] [address] [place] [address] * Vancomycin, Trough (06/23/2024 4:55 AM FOUNTAIN OPERATOR) Vancomycin, Trough, S 19.1 10.0 - 20.0 mcg/mL 06/23/2024 7:46 AM FOUNTAIN OPERATOR DTL Blood (Blood, Venous) 06/23/2024 4:55 AM FOUNTAIN OPERATOR 06/23/2024 5:19 AM FOUNTAIN OPERATOR Skyler Bunn M.D. LAB BLOOD NON ADD-ON Final Re sult Performing Organization Address City/[facility] [address]/[facility] Co de Phone Number [facility] [address] [place] [address] * Staph aureus / MRSA, Nasal, PCR (06/22/2024 7:46 AM FOUNTAIN OPERATOR) Staphylococcus aureus, PCR Negative Negative 06/22/2024 11:54 AM FOUNTAIN OPERATOR DTL MRSA, PCR Negative Negative 06/22/2024 11:54 AM FOUNTAIN OPERATOR DTL Swab (Nares) 06/22/2024 7:46 AM FOUNTAIN OPERATOR 06/22/2024 10:06 AM FOUNTAIN OPERATOR Nik Elam M.D., M.B.A. LAB MICROBIOLOGY - GENERAL ORDERABLES Final Result Performing Organization Address City/[facility] [address]/ZIP Co de Phone Number [facility] [address] [place] [address] * Patient Status (06/22/2024 4:29 AM FOUNTAIN OPERATOR) FIO2 0.40 0.21=AIR 06/22/2024 4:3 4 AM FOUNTAIN OPERATOR STMA Device Vent 06/22/2024 4:3 4 AM FOUNTAIN OPERATOR STMA Blood 06/22/2024 4:29 AM FOUNTAIN OPERATOR 06/22/2024 4:34 AM FOUNTAIN OPERATOR Nik Elam M.D., M.B.A. LAB BLOOD NON ADD-O N Final Result [facility] [address] [place] [address], [facility] [[email or web address] STMA [facility] [address] [place] [address] * (ABNORMAL) Blood Gas with Coox, Arterial (06/22/2024 4:29 AM FOUNTAIN OPERATOR) pO2 105 83 - 108 mm Hg 06/22/2024 4:36 AM FOUNTAIN OPERATOR STMA pCO2 43 32 - 45 mm Hg 06/22/2024 4:36 AM FOUNTAIN OPERATOR STMA pH 7.38 7.35 - 7.45 pH 06/22/2024 4:36 AM FOUNTAIN OPERATOR STMA Base Excess 1 -2 - 3 mmol/L 06/22/2024 4:36 AM FOUNTAIN OPERATOR STMA HCO3 26 22 - 26 mmol/L 06/22/2024 4:36 AM FOUNTAIN OPERATOR STMA Hemoglobin, B 10.6(L) 11.6 - 15.0 g/dL 06/22/2024 4:36 AM FOUNTAIN OPERATOR STMA O2Hb 97.9 94.0 - 98.0 % 06/22/2024 4:36 AM FOUNTAIN OPERATOR STMA COHb 2.0 <3.0 % 06/22/2024 4:36 AM FOUNTAIN OPERATOR STMA MetHb <1.0 <1.5 % 06/22/2024 4:36 AM FOUNTAIN OPERATOR STMA CtO2 14.8(L) 18.0 - 21.0 vol % 06/22/2024 4:36 AM FOUNTAIN OPERATOR STMA Arterial Sample Site Art Line 06/22/2024 4:34 AM FOUNTAIN OPERATOR STMA Comment:Alistair's test not don e. Blood (Blood, Arterial) 06/22/2024 4:29 AM FOUNTAIN OPERATOR 06/22/2024 4:34 AM FOUNTAIN OPERATOR us Nik Elam M.D., M.B.A. LAB BLOOD NON ADD-O N Final Result Performing Organization Address City/[facility] Co de Phone Number [facility] 200 [place] [address], [facility] [[email or web address]] [place] [address] * (ABNORMAL) Cystatin C with Estimated GFR (06/22/2024 4:28 AM FOUNTAIN OPERATOR) Pathologist [facility] eGFR by Cystatin C 29(L) >60 mL/min/BSA 06/22/2024 5:30 AM FOUNTAIN OPERATOR DTL Comment: Estimated GFR calculated using the [...] 0.67 - 1.21 mg/L 06/22/2024 5:30 AM FOUNTAIN OPERATOR DTL Blood (Blood, Venous) 06/22/2024 4:28 AM FOUNTAIN OPERATOR 06/22/2024 5:09 AM FOUNTAIN OPERATOR us Skyler Bunn M.D. LAB BLOOD ADD-ON Final Result Performing Organization Address City/[facility] [address]/ZIP Co de Phone Number [facility] 200 [place] [address], [facility] [[email or web address]] [facility] 200 [place] [address] * Phosphorus Inorganic (06/22/2024 4:24 AM FOUNTAIN OPERATOR) Only the most recent of2 resultswithin the time period is included. Phosphorus (Inorganic), S 4.4 2.5 - 4.5 mg/dL 06/22/2024 10:16 AM FOUNTAIN OPERATOR DTL Blood (Blood, Venous) 06/22/2024 4:24 AM FOUNTAIN OPERATOR 06/22/2024 9:50 AM FOUNTAIN OPERATOR us Darion Gaxiola M.D. LAB BLOOD ADD-ON Final Resu lt Performing Organization Address City/[facility]/ZIP Co de Phone Number [facility] 200 [place] [address], [facility] 200 [place] [address] * Magnesium (06/22/2024 4:24 AM FOUNTAIN OPERATOR) Magnesium, S 1.9 1.7 - 2.3 mg/dL 06/22/2024 10:16 AM FOUNTAIN OPERATOR DTL Blood 06/22/2024 4:24 AM FOUNTAIN OPERATOR 06/22/2024 9:50 AM FOUNTAIN OPERATOR Darion Gaxiola M.D. LAB BLOOD ADD-ON Final Resu lt Performing Organization Address [facility] Co de Phone Number [facility] [address] [place] [address], [facility] 200 [place] [address] * Bacterial Culture, Aerobic + Susceptibility, Respiratory (06/21/2024 10:35 PM FOUNTAIN OPERATOR) Bacterial Culture, Aerobic, Resp No growth after 2 days of incubation. 06/24/2024 7:20 AM FOUNTAIN OPERATOR DTL Sputum (Sputum) 06/21/2024 1 0:35 PM FOUNTAIN OPERATOR 06/21/2024 10:35 PM FOUNTAIN OPERATOR Comment:Specimen Source Site : Sputum Narrative [facility] - 06/24/2024 7:20 AM FOUNTAIN OPERATOR Fungal and Mycobacteria specimens plated for culture, volume inadequate for optimal recovery. us Maria M Welch P.A.-C. LAB MICROBIOLOGY - GEN ERAL ORDERABLES Final Result Performing Organization Address City/[facility]/ZIP Co de Phone Number [facility] [address] [place] [address], [facility] [address] [place] [address] * Mycobacterial Culture (06/21/2024 10:35 PM FOUNTAIN OPERATOR) Mycobacterial Culture No growth after 42 days of incubation . 08/03/2024 1:02 AM FOUNTAIN OPERATOR DTL Sputum (Sputum) 06/21/2024 1 0:35 PM FOUNTAIN OPERATOR 06/21/2024 10:35 PM FOUNTAIN OPERATOR Comment:Specimen Source Site : Sputum Narrative [facility] - 08/03/2024 1:02 AM FOUNTAIN OPERATOR Fungal and Mycobacteria specimens plated for culture, volume inadequate for optimal recovery. Maria M TaCKavya LAB MICROBIOLOGY - GEN ERAL ORDERABLES Final Result [facility] [address] [place] [address], [facility] [address] [place] [address] * Fungal Smear (06/21/2024 10:35 PM FOUNTAIN OPERATOR) Fungal Smear Negative. 06/22/2024 8:22 AM FOUNTAIN OPERATOR DTL Sputum (Sputum) 06/21/2024 1 0:35 PM FOUNTAIN OPERATOR 06/21/2024 10:35 PM FOUNTAIN OPERATOR Comment:Specimen Source Site : Sputum Narrative [facility] - 06/22/2024 8:22 AM FOUNTAIN OPERATOR Fungal and Mycobacteria specimens plated for culture, volume inadequate for optimal recovery. Maria M TaC. LAB MICROBIOLOGY - GEN ERAL ORDERABLES Final Result [facility] [address] [place] [address], [facility] [address] [place] [address] * Acid Fast Smear for Mycobacterium (06/21/2024 10:35 PM FOUNTAIN OPERATOR) Acid Fast Smear For Mycobacterium Negative. 06/22/2024 5:44 AM FOUNTAIN OPERATOR DTL Sputum (Sputum) 06/21/2024 1 0:35 PM FOUNTAIN OPERATOR 06/21/2024 10:35 PM FOUNTAIN OPERATOR Comment:Specimen Source Site : Sputum Narrative [facility] - 06/22/2024 5:44 AM FOUNTAIN OPERATOR Fungal and Mycobacteria specimens plated for culture, volume inadequate for optimal recovery. Maria M Welch P.A.-C. LAB MICROBIOLOGY - GEN ERAL ORDERABLES Final Result Performing Organization Address [facility] de Phone Number [facility] [address] [place] [address] * Gram Stain (06/21/2024 10:35 PM FOUNTAIN OPERATOR) Gram Stain No organisms seen. White blood cells, Many Epithelial cells, Rare 06/22/2024 1:18 AM FOUNTAIN OPERATOR DTL Sputum (Sputum) 06/21/2024 1 0:35 PM FOUNTAIN OPERATOR 06/21/2024 10:35 PM FOUNTAIN OPERATOR Comment:Specimen Source Site : Sputum Narrative [facility] - 06/22/2024 1:18 AM FOUNTAIN OPERATOR Fungal and Mycobacteria specimens plated for culture, volume inadequate for optimal recovery. Maria M Welch P.A.-C. LAB MICROBIOLOGY - GEN ERAL ORDERABLES Final Result Performing Organization Address [facility] de Phone Number [facility] [address] [place] [address] * (ABNORMAL) Fungal Culture, Routine (06/21/2024 10:35 PM FOUNTAIN OPERATOR) Fungal Culture, Routine ASPERGILLUS VERSICOLOR COMPLEX Few (A) 07/17/2024 3:06 PM FOUNTAIN OPERATOR DTL Comment: Susceptibility testing is not indicated for all molds. Not all molds are clinically significant. If the ordering clinician feels that the culture result is clinically significant, infectious disease consultation is required to order mold susceptibility testing. Sputum (Sputum) 06/21/2024 1 0:35 PM FOUNTAIN OPERATOR 06/21/2024 10:35 PM FOUNTAIN OPERATOR Comment:Specimen Source Site : Sputum Narrative [facility] - 07/17/2024 3:06 PM FOUNTAIN OPERATOR Fungal and Mycobacteria specimens plated for culture, volume inadequate for optimal recovery. Maria M Welch P.A.-C. LAB MICROBIOLOGY - GEN ERAL ORDERABLES Final Result [facility] [address] [place] [address], [place] [facility] [address] [place] [address] * (ABNORMAL) Bacterial Culture, Aerobic + Susceptibility (06/21/2024 5:26 PM FOUNTAIN OPERATOR) Bacterial Culture, Aerobic + Susc With skin microbiota(A) 06/24/2024 1:54 PM FOUNTAIN OPERATOR DTL Bacterial Culture, Aerobic + Susc STAPHYLOCOCCUS AUREUS 1+ (A) 06/24/2024 1:54 PM FOUNTAIN OPERATOR DTL Swab (Cheek, Right) 06/21/2024 5:26 PM FOUNTAIN OPERATOR 06/21/2024 6:39 PM FOUNTAIN OPERATOR Comment:Specimen Source Site : Swab Right Buccal [...] LAB MICROBIOLOGY - GENERAL ORDERABLES Final Result [facility] [address] [place] [address], [facility] [[email or web address]] [facility] [address] [place] [address] * Invasive Line (06/21/2024 4:24 PM FOUNTAIN OPERATOR) Narrative Parker Mcmillan R.R.T., L.R.T. - 06/21/2024 4:24 PM FOUNTAIN OPERATOR Parker Mcmillan R.R.T., L.R.T. 06/21/2024 4:24 PM [...] Result * Dipstick, Urine (06/21/2024 3:42 PM FOUNTAIN OPERATOR) Hemoglobin, QL, U Negative Negative 06/21/2024 4:46 PM FOUNTAIN OPERATOR DTL Leukocyte Esterase, U Negative Negative 06/21/2024 4:46 PM FOUNTAIN OPERATOR DTL Nitrite, U Negative Negative 06/21/2024 4:46 PM FOUNTAIN OPERATOR DTL Ketone, U Negative Negative mg/dL 06/21/2024 4:46 PM FOUNTAIN OPERATOR DTL Glucose, U Negative Negative mg/dL 06/21/2024 4:46 PM FOUNTAIN OPERATOR DTL Urine 06/21/2024 3:42 PM FOUNTAIN OPERATOR 06/21/2024 4:19 PM FOUNTAIN OPERATOR Nik Elam M.D., M.B.A. LAB URINE ORDERABLE S Final Result Performing Organization Address City/[facility] Co de Phone Number [facility] [address] [facility] 200 [place] [address] * Microscopic Automated (06/21/2024 3:42 PM FOUNTAIN OPERATOR) Pathologist [facility] Microscopy Normal 06/21/2024 4:46 PM FOUNTAIN OPERATOR DTL RBC <3 <3 /hpf 06/21/2024 4:46 PM FOUNTAIN OPERATOR DTL WBC 1-3 /hpf 06/21/2024 4:46 PM FOUNTAIN OPERATOR DTL Comment: ----REFERENCE VALUE---- <4 (Males) <11 (Females) Urine 06/21/2024 3:42 PM FOUNTAIN OPERATOR 06/21/2024 4:19 PM FOUNTAIN OPERATOR Nik Elam M.D., M.B.A. LAB URINE ORDERABLE S Final Result Performing Organization Address City/[facility]/ZIP Co de Phone Number [facility] 200 [place] [address], [facility] [[email or web address]] [place] [address] * pH, Urine (06/21/2024 3:42 PM FOUNTAIN OPERATOR) Pathologist [facility] pH, U 4.9 4.5 - 8.0 06/21/2024 5:3 2 PM FOUNTAIN OPERATOR DTL Urine 06/21/2024 3:42 PM FOUNTAIN OPERATOR 06/21/2024 4:19 PM FOUNTAIN OPERATOR Nik Elam M.D., M.B.A. LAB URINE ORDERABLE S Final Result Performing Organization Address City/[facility]/ZIP Co de Phone Number [facility] 200 [place] [address], [facility] 200 [place] [address] * Osmolality, Urine (06/21/2024 3:42 PM FOUNTAIN OPERATOR) [facility] Osmolality, U 307 150 - 1150 mOsm/kg 06/21/2024 5:32 PM FOUNTAIN OPERATOR DT Urine 06/21/2024 3:42 PM FOUNTAIN OPERATOR 06/21/2024 4:19 PM FOUNTAIN OPERATOR Nik Elam M.D., M.B.A. LAB URINE ORDERABLE S Final Result Performing Organization Address [facility] Co de Phone Number [facility] [address] [place] [address], [facility] 200 [place] [address] * Urinalysis, with Microscopic: Urine, Catheter (06/21/2024 3:42 PM FOUNTAIN OPERATOR) Pathologist [facility] Source Urine, Urine, Catheter 06/21/2024 4:19 PM FOUNTAIN OPERATOR DTL Color, U Yellow 06/21/2024 4:19 PM FOUNTAIN OPERATOR DTL Clarity, U Clear 06/21/2024 4:19 PM FOUNTAIN OPERATOR DTL Protein, U 6 <26 mg/dL 06/21/2024 5:24 PM FOUNTAIN OPERATOR DTL Protein/Osmola lity 0.20 <0.42 ratio 06/21/2024 5:32 PM FOUNTAIN OPERATOR DTL Predicted 24 HR Protein, U 152 <229 mg/24 h 06/21/2024 5:32 PM FOUNTAIN OPERATOR DTL Predicted Range 38-615 mg/24 h 06/21/2024 5:32 PM FOUNTAIN OPERATOR DTL Urine (Urine, Catheter) 06/21/2024 3:42 PM FOUNTAIN OPERATOR 06/21/2024 4:19 PM FOUNTAIN OPERATOR Nik Elam M.D., M.B.A. LAB URINE ORDERABLE S Final Result [facility] [address] [place] [address], [facility] [[email or web address]] DTL [facility] [address] [place] [address] * DX Abdomen Portable Anterior Posterior 1 View (06/21/2024 3:10 PM FOUNTAIN OPERATOR) Anatomical Region Laterality Modality Abdomen, Abdominal RST LOS, Abdominal ARZ LOS, Abdominal FLA LOS N/A Digital Radiography Impressions 06/21/2024 3:28 PM FOUNTAIN OPERATOR NG tube with tip and sidehole projecting over the stomach. Curvilinear lucencies in the left lower abdomen have the appearance of pneumatosis intestinalis versus air outlining stool. If there is clinical concern for an intra-abdominal process, CT abdomen pelvis is recommended to further evaluate this finding. Narrative 06/21/2024 3:28 PM FOUNTAIN OPERATOR EXAM: DX ABDOMEN PORTABLE ANTERIOR POSTERIOR 1 [...] Result * Patient Status (06/21/2024 2:27 PM FOUNTAIN OPERATOR) FIO2 0.40 0.21=AIR 06/21/2024 2:37 PM FOUNTAIN OPERATOR STMA Device Vent 06/21/2024 2:37 PM FOUNTAIN OPERATOR STMA Spont. breaths/min 17 06/21/2024 2:37 PM FOUNTAIN OPERATOR STMA Blood 06/21/2024 2:27 PM FOUNTAIN OPERATOR 06/21/2024 2:37 PM FOUNTAIN OPERATOR Nik Elam M.D., M.B.A. LAB BLOOD NON ADD-O N Final Result [facility] [address] [place] [address], [facility] [[email or web address] STMA [facility] [address] [place] [address] * Bacteria / Cherry Culture, Blood #2 (06/21/2024 2:27 PM FOUNTAIN OPERATOR) Only the most recent of2 resultswithin the time period is included. [facility] Bacteria/Dorothy da Culture, Blood No growth after 5 days of incubation. 06/26/2024 3:02 PM FOUNTAIN OPERATOR DTL Blood (Blood, Peripheral Draw) 06/21/2024 2:27 PM FOUNTAIN OPERATOR 06/21/2024 2:57 PM FOUNTAIN OPERATOR Comment:Specimen Source Site : Blood Narrative [facility] - 06/26/2024 3:02 PM FOUNTAIN OPERATOR Received Bactec aerobic and Bactec anaerobic bottles Nik Elam M.D., M.B.A. LAB MICROBIOLOGY - GENERAL ORDERABLES Final Result Performing Organization Address [facility] Co de Phone Number [facility] [address] [place] [address], [facility] [[email or web address]] DTL [facility] [address] [place] [address] * (ABNORMAL) Blood Gas with Coox, Venous (06/21/2024 2:27 PM FOUNTAIN OPERATOR) Pathologist [facility] pO2, Venous, B 56 Not applicable mm Hg 06/21/2024 2:40 PM FOUNTAIN OPERATOR STMA pCO2, Venous, B 45 41 - 51 mm Hg 06/21/2024 2:40 PM FOUNTAIN OPERATOR STMA pH, Venous, B 7.36 7.32 - 7.43 pH 025 2:40 PM FOUNTAIN OPERATOR STMA Base Excess, Venous, B 0 Not applicable mmol/L 06/21/2024 2:40 PM FOUNTAIN OPERATOR STMA HCO3, Venous, B 25 Not applicable mmol/L 06/21/2024 2:40 PM FOUNTAIN OPERATOR STMA Hemoglobin, Venous, B 11.2(L) 11.6 - 15.0 g/dL 06/21/2024 2:40 PM FOUNTAIN OPERATOR STMA O2Hb, Venous, B 88.2 Not applicable % 06/21/2024 2:40 PM FOUNTAIN OPERATOR STMA COHb, Venous, B 2.4 <3.0 % 06/21/2024 2:40 PM FOUNTAIN OPERATOR STMA MetHb, Venous, B <1.0 <1.5 % 06/21/2024 2:40 PM FOUNTAIN OPERATOR STMA CtO2, Venous, B 13.9 Not Applicable vol % 06/21/2024 2:40 PM FOUNTAIN OPERATOR STMA Sample Site, Venous, B Venipunct 06/21/2024 2:37 PM FOUNTAIN OPERATOR STMA Blood (Blood, Venous) 06/21/2024 2:27 PM FOUNTAIN OPERATOR 06/21/2024 2:37 PM FOUNTAIN OPERATOR Nik Elam M.D., M.B.A. LAB BLOOD NON ADD-O N Final Result Performing Organization Address [facility] Co de Phone Number [facility] [address] [place] [address], [facility] [[email or web address]] STMA [facility] [address] [place] [address] * Lactate for Sepsis with Reflex (06/21/2024 2:14 PM FOUNTAIN OPERATOR) Lactate, P 1.3 0.5 - 2.2 mmol/L 06/21/2024 2:52 PM FOUNTAIN OPERATOR STMA Blood (Blood, Venous) 06/21/2024 2:14 PM FOUNTAIN OPERATOR 06/21/2024 2:37 PM FOUNTAIN OPERATOR Nik Elam M.D., M.B.A. LAB BLOOD NON ADD-O N Final Result [facility] 200 [place], [place] [address] [place] [address] STMA [facility] 200 [place] [address] * Mumps Virus PCR, Buccal (06/20/2024 10:32 AM FOUNTAIN OPERATOR) Mumps Virus PCR, Buccal Negative Negative 06/22/2024 8:41 AM FOUNTAIN OPERATOR DTL Comment: ----ADDITIONAL INFORMATION---- This test was developed and its performance characteristics determined by [facility] in a manner consistent with CLIA requirements. This test has not been cleared or approved by the U.S. Food and Drug Administration. Swab (Buccal Mucosa) 06/20/2024 10:32 AM FOUNTAIN OPERATOR 06/20/2024 10:09 PM FOUNTAIN OPERATOR Laly LAKHANI, P.A.-C. LAB MICROBIOLOGY - GENERAL ORDERABLES Final Result Performing Organization Address City/[facility] [address] [facility] de Phone Number [facility] 200 [place], [place] [address] DT 200 [facility] 200 [place] [address] * Albumin, Random, Urine (06/14/2024 9:30 AM FOUNTAIN OPERATOR) Only the most recent of2 resultswithin the time period is included. Pathologist [facility] Microalbumin <12.0 mg/L 06/14/2024 2:02 PM FOUNTAIN OPERATOR OWAT Comment:If clinically indica jim, contact the lab for additional testing. Creatinine 56 mg/dL 06/14/2024 2:02 PM FOUNTAIN OPERATOR OWAT Albumin/Creatinine Ratio <21 <25 mg/g 06/14/2024 2:02 PM FOUNTAIN OPERATOR OWAT Comment: This ratio may not correspond with the reference range because one or both of the values used to calculate the ratio was above or below the quantification limits. Urine (Urine, Midstream) 06/14/2024 9:30 AM FOUNTAIN OPERATOR 06/14/2024 1:05 PM FOUNTAIN OPERATOR Laly LAKHANI, P.A.-C. LAB URINE ORDERAB LES Final Result [facility] [address] [place] [address], [facility] [[email or web address]] OWAT [facility] [place] [address] [place] [address] * (ABNORMAL) Lipid Panel (06/07/2024 8:02 AM FOUNTAIN OPERATOR) Triglycerides 246(H) mg/dL 06/07/2024 4:47 PM FOUNTAIN OPERATOR OWAT Comment: ----REFERENCE VALUE---- Normal: <150 mg/dL Borderline High: 150-199 mg/dL High: 200-499 mg/dL Very High: > or =500 mg/dL Cholesterol, Total 326(H) mg/dL 2024 4:47 PM FOUNTAIN OPERATOR OWAT Comment: ----REFERENCE VALUE---- Desirable: < 200 mg/dL Borderline High: 200 - 239 mg/dL High: > or = 240 mg/dL Cholesterol, LDL, Calculated 232(H) mg/dL 06/07/2024 4:47 PM FOUNTAIN OPERATOR OWAT Comment: The markedly elevated LDL level [...] HDL 44(L) >=50 mg/dL 06/07/2024 4:47 PM FOUNTAIN OPERATOR OWAT Cholesterol, Non-HDL, Calculated 282(H) mg/dL 06/07/2024 4:47 PM FOUNTAIN OPERATOR OWAT Comment: ----REFERENCE VALUE---- Desirable: <130 mg/dL Above Desirable: 130-159 mg/dL Borderline High: 160-189 mg/dL High: 190-219 mg/dL Very High: > or =220 mg/dL Fasting (8 HR or more) Yes 8:02 AM FOUNTAIN OPERATOR OWAT Blood (Blood, Venous) 06/07/2024 8:02 AM FOUNTAIN OPERATOR 06/07/2024 12:58 PM FOUNTAIN OPERATOR Laly LAKHANI, P.A.-C. LAB BLOOD ADD-ON Final Result Performing Organization Address City/[facility] Co de Phone Number [facility] [address] [place] [address], [place] OWAT [facility] [place] [address] [place] [address] * Vitamin D, Immunoassay, Total, Serum (06/07/2024 8:02 AM FOUNTAIN OPERATOR) Vitamin D, Immunoassay, Total, S 40 20 - 80 ng/mL 06/07/2024 8:05 PM FOUNTAIN OPERATOR MKTO Comment: Optimum levels within the healthy population are 20-50, patients with bone disease may benefit from high levels within this range Blood (Blood, Venous) 06/07/2024 8:02 AM FOUNTAIN OPERATOR 06/07/2024 7:21 PM FOUNTAIN OPERATOR Laly LAKHANI, P.A.-C. LAB BLOOD ADD-ON Final Result Performing Organization Address [facility] Co de Phone Number [facility] [place] [address], [place] MKTO [facility] [address] [place] [address] * (ABNORMAL) Parathyroid Hormone (PTH) (06/07/2024 8:02 AM FOUNTAIN OPERATOR) Parathyroid Hormone (PTH), S 103(H) 15 - 65 pg/mL 06/07/2024 3:55 PM FOUNTAIN OPERATOR AUST Comment: Biotin has been identified by the enrollment processor as a potential interfering substance. Higher concentrations of biotin may be found in multivitamins, hair/nail supplements, and workout supplements. If the result does not match clinical observations, repeat testing after patient refrains from the use of supplements for at least 12 hours. Blood (Blood, Venous) 06/07/2024 8:02 AM FOUNTAIN OPERATOR 06/07/2024 3:36 PM FOUNTAIN OPERATOR Laly LAKHANI P.A.-C. LAB BLOOD ADD-ON Final Result Performing Organization Address [facility] Co de Phone Number [facility] [address] [place] [address], [facility] [[email or web address]] [facility] [address] [place] [address] * (ABNORMAL) Hemoglobin A1c (06/07/2024 8:02 AM FOUNTAIN OPERATOR) Hemoglobin A1c, B 5.9(H) 4.2 - 5.6 % 06/07/2024 3:15 PM FOUNTAIN OPERATOR OW Comment: Hemoglobin A1c values of 5.7-6.4 percent indicate an increased risk for developing diabetes mellitus. In diabetic patients, HbA1c goals should be discussed with healthcare provider. Blood (Blood, Venous) 06/07/2024 8:02 AM FOUNTAIN OPERATOR 06/07/2024 12:58 PM FOUNTAIN OPERATOR Laly LAKHANI, P.A.-C. LAB BLOOD ADD-ON Final Result Performing Organization Address [facility] [address] [facility] Co de Phone Number [facility] [address] [place] [address], [facility] [[email or web address]] [facility] [place] [address] [place] [id number] * BI Breast Screening Bilateral with Tomosynthesis [...] Most Recently Relevant to Health Maintenance Insurance [facility] MEDIC[facility] Member Subscriber Plan / Payer (Ef fective 1999-Present) Name:Anna Ortega Member ID:[id number] Relation to Subscriber:Self Name:Anna Ortega Subscriber ID:[id number] Payer ID:Not on file Group ID:Not on file Type:Medicare Address: [address] [place] [id number] Advance Directives For more information, please contact: [phone] * Full Code (Latest Code Status on [...] DNR (Do Not Resuscitate): Discussed-Patient Care Teams Microwave Supervisor Relationship Specialty Start Date End Date Laly Dickey MPAS, P.A.-C. [address] [place], [place] [address] [address] PCP - General Internal Medicine 07/28/22
--- OUTSIDE RECORDS SUMMARY | 2024-08-15 14:49 | XMS_ITS | Encounter Summary ---
Author Organization [facility] Address [address] [place] [address] Care Team Providers Care Supervisor Continuous [employer] Name Role Phone Laly Dickey P.A.-C. Primary Care Pro vider Reason for Referral * Outpatient (Routine) - Authorized Specialty Diagnoses / Procedures Referred By Nemo morales Referred To Contact Diagnoses Parotitis Procedures US Parotid Submandibular Glands Laly Dickey MPAS, P.A.-C. [address] [facility] [place] [address] Phone: tel: fax: [facility] Region Referral ID Status Reason Start Date Expiration Date V isits Requested Visits Authorized [id number] Authorized 07/05/2024 10/05/2025 1 1 R WORKER Encounter Details Date Type Department Care Team (Late st Contact Info) Description 07/05/2024 Results Follow-Up Department of Community Internal Medicine in [place], [place] [address] [facility] [place] [address] Laly Dickey MPAS, P.A.-C. [address] [facility] [place] [address] CBC with Differential, Blood Social History [...] [facility] live 06/23/2024 Comments No Sex and Gender Information Value Date Recorded Sex Assigned at Female 03/19/2023 10:10 AM CDT Legal Sex Female 1:31 PM FIBER WORKER Gender Identity Female 03/19/2023 10:10 AM CDT Sexual Orientation Not on file documented as of this encounter Plan of Treatment Upcoming Encounters Date Type Department Care Team (Late st Contact Info) Description 09/20/2024 3:00 PM CDT Appointment Department of Neurology in [place], [place] [address] [place] [phone] Carmen Petit APRN, C.N.P., M.S.N. [address] [place] [phone] 09/20/2024 3:45 PM CDT Appointment Department of Radiology, [facility], in [place], [place] [address] [place] [phone] Carmen Petit APRN, C.N.P., M.S.N. [address] [place] [phone] 09/21/2024 9:30 AM CDT Office Visit Department of Neurologic Surgery in [place], [place] [address] [place] [phone] Ashley Watts P.A.-C. [address] [place] [phone] 10/09/2024 9:30 AM CDT Office Visit Department of Otorhinolaryngology in [place], [place] [address] [place] [address] Montserrat Jacobs M.D. [address] [place] [phone] Scheduled Orders Name Type Priority Associated Diagnoses [...] Total Score: 0 07/05/19 25 10:01 AM FIBER WORKER documented as of this encounter Care Teams Supervisor Continuous [employer] Relationship Specialty Start Date End Date Laly Dickey MPAS, P.A.-C. [address] [place] [phone] PCP - General Internal Medicine 07/28/22 documented as of this encounter
--- OUTSIDE RECORDS SUMMARY | 2024-08-15 14:49 | XMS_ITS | Encounter Summary ---
Author Organization [facility] Address [address] [place] [address] [address] [place] [address] Care Team Providers Care Revenue Accounting Manager Name Role Phone Gen Michaels MD Primary Care Provider [phone] Ambrosio Hill MD Primary Care Provider [phone] Ambrosio Hill MD Unavailable Provider, No Attributed RESOURCE Unavailable Unavailable Ambrosio Hill MD Unavailable + Ambrosio Hill MD Unavailable Natalie Estrada MD Unavailable [phone] Jakub Barr MD Unavailable [phone] Merary Ware [facility] Unavailable [phone] Provider, No Attributed RESOURCE Unavailable Unavailable Ambrosio Hill MD Unavailable + Provider, No Attributed RESOURCE Unavailable Unavailable Encounter Details Date Type Department Care Team (Late st Contact Info) Description 04/07/2013 Dictated / No Visit [facility] [address] [place] [address] Gen Michaels MD [address] [place], [place] [phone] Social History Tobacco Use Types Packs/Day Years [...] 04/07/2013 10:27 AM CST 04/07/2013 RAJINDER VERMA [address] [place] [address] MR#: [id number] CSN: Dear Rajinder: I have received the report of your mammogram and it is normal. Sincerely, Gen Michaels M.D., Family Medicine [id number] OL MOTHER * Gne Michaels MD - 04/07/2013 10:25 AM CST 04/07/2013 RAJINDER VERMA [address] [place], [place] [address] MR#: [id number] CSN: Dear Rajinder: I have received the [...] months. Sincerely, Gen Michaels M.D., Family Medicine [id number] OL MOTHER documented in this encounter Plan of Treatment Not on file documented as of this encounter Visit Diagnoses Not on filedocumented in this encounter Additional Health Concerns Infection Onset Date Last Indicated Resolved Time COVID-19 04/23/2020 04/23/2020 05/03/2020 11:5 7 PM PATROL MOTHER documented as of this encounter Care Teams Revenue Accounting Manager Relationship Specialty Start Date End Date Gen Michaels MD [address] [facility] [place] [address] PCP - General Family Medicine 07/25/13 07/05/14 Ambrosio Hill MD [address] [facility] [place] [address] PCP - General Family Medicine 07/06/14 03/04/22 Ambrosio Hill MD [address] [facility] [place] [address] PCP - Attributed Provider 01/30/16 04/19/16 Provider, No Attributed, RESOURCE [address] PCP - Attributed Provider 04/20/16 04/21/16 Ambrosio Hill MD [address] [facility] [place] [address] PCP - Attributed Provider 04/22/16 11/21/20 Ambrosio Hill MD [address] [facility] [place] [address] PCP - Attributed Provider 11/22/20 03/23/22 Provider, No Attributed, RESOURCE [address] PCP - Attributed Provider 03/24/22 05/26/22 Ambrosio Hill MD [address] [facility] [place] [address] PCP - Attributed Provider 05/27/22 02/22/24 Provider, No Attributed, RESOURCE [address] PCP - Attributed Provider 02/23/24 Natalie Estrada MD [address] [place] [address] Nephrology (Internal Medicine) 09/18/21 Jakub Barr MD [address] [place] [address] Orthopedic Surgery 09/18/21 Merary Ware [facility] [address] [place] [address] [facility] [place] [place] - Oncology 09/18/21 documented as of this encounter
--- OUTSIDE RECORDS SUMMARY | 2024-08-15 14:49 | XMS_ITS | Clinical Summary ---
Author Organization [employer] Address [address] [place] [address] Care Team Providers Care Manager Science Name Role Phone Natalie Estrada MD Unavailable [phone] Jakub Barr MD Unavailable [phone] Shawn Ware SOFTWARE PRODUCT MANAGER-DIGITAL CAMPAIGN SPECIALIST Unavailable Provider, No Attributed RESOURCE Unavailable Unavailable Allergies [...] (NEURONTIN) 300 mg capsuleIndications :Diabetic peripheral neuropathy ([facility]) Take 3 capsules (900 mg) by mouth every night at bedtime 270 capsule 02/10/20 Active losartan 50 mg tabletIndications: Essential hypertension,Stage 3b chronic kidney disease ([facility]) Take 1 tablet (50 mg) by mouth [...] :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) ([facility]) Inhale 2 puffs orally 1 time per day 12 g 02/10/20 Active amitriptyline (ELAVIL) 50 mg tabletIndications: Obstructive sleep apnea syndrome Take 3 tablets (150 mg) by mouth every night at bedtime 270 tablet 02/10/20 Active BD Ultra Fine lancets 33GIndications:Typ e 2 diabetes mellitus with complication, with long-term current use of insulin ([facility]) four per day 400 each 02/10/20 Active Blood Glucose Monitoring Suppl (TRUE METRIX METER) w/Device KITIndications:Typ e 2 diabetes mellitus with complication, with long-term current use of insulin ([facility]) 1 Device 4 times a day DX: E 11.8 1 each 02/10/20 Active dulaglutide (TRULICITY) 1.5 mg/0.5 mL subcutaneous injection (pen)Indications:T ype 2 diabetes mellitus with complication, with long-term current use of insulin ([facility]) Inject 0.5 mL (1.5 mg) subcutaneously 1 time a week 6 mL 02/10/20 Active insulin detemir (LEVEMIR FLEXTOUCH) subcutaneous injection (pen)Indications:T ype 2 diabetes mellitus with complication, with long-term current use of insulin ([facility]) Inject 32 Units subcutaneously 2 times a day 60 mL 02/10/20 Active insulin lispro (HUMALOG) 100 unit/mL (1 unit dial) subcutaneous inj (pen)Indications:T ype 2 diabetes mellitus with complication, with long-term current use of insulin ([facility]) Inject 30 Units subcutaneously 3 times a day with meals Adjust as indicated 81 mL 02/10/20 Active insulin needle (INSULIN NEEDLE) 31G X 8 mm (10/13) ShortIndications:T ype 2 diabetes mellitus with complication, with long-term current use of insulin ([facility]) Use as directed 300 each 1 02/10/20 Active metFORMIN (GLUCOPHAGE) 500 MG tabletIndications: Type 2 diabetes mellitus with complication, with long-term current use of insulin ([facility]) Take 1 tablet (500 mg) by mouth 2 times a day with meals 180 tablet 02/10/20 Active True Metrix Blood Glucose Test StripIndications:T ype 2 diabetes mellitus with complication, with long-term current use of insulin ([facility]) 1 Strip 400 each 02/10/20 Active traMADol [...] often do you attend chur ch or quaker services? More than 4 times per year 04/23/2020 Do you belong to any clubs o r organizations such as faith groups, unions, fraternal or athletic groups, or [...] Date Recorded PHQ-9 Total (Adult) 0 02/09/2022 [facility] Occupational Stress Questionnaire Answer Date [...] Start Date Job End Date retired from [employer] Not on file Not on fi le [...] 172.7 cm (5' 8) 05/12/2021 6:34 AM HEEL MOLDER Body Mass Index 39.43 05/12/2021 6:34 AM HEEL MOLDER Plan of Treatment Health Maintenance Due Date [...] Lerner MD Medical Devices Implanted Type Area Linderman Machine Operator Device Identifier Shelf Expiration Date Model / Serial / Lot Cmnt Simplex P W Tobramyacin N 6197-9-010 Bx10/Ea - [id number] Implanted:Qty: 1 on 11/26/2015 by Jakub Barr MD at [facility] Ortho Other Left: KNEE DAVID 08/28/2016 6197-9-001 / N/A / [id number] Description:Verified by Dr. Barr and surgical team. Cmnt Simplex P W Tobramyacin N 6197-9-010 Bx10/Ea - [id number] Implanted:Qty: 1 on 11/26/2015 by Jakub Barr MD at [facility] Ortho Other Right: KNEE DAVID 08/28/2016 6197-9-001 / N/A / [id number] Knee Psn Asf Psve Lft11 6-9 Ef N 23-1827-963-11 Ea - [id number] Implanted:Qty: 1 on 11/26/2015 by Jakub Barr MD at [facility] Total Jt Knee Left: KNEE DESIREE 08/28/2020 42-5124-00 7-11 / N/A / [id number] Description:Verified by Dr. Barr and surgical team. Knee Psn Ptla All Pe Ve 38mm N 87-6826-318-38 Ea - [id number] Implanted:Qty: 1 on 11/26/2015 by Jakub Barr MD at [facility] Total Jt Knee Right: KNEE DESIREE 04/29/2020 42-5402-00 0-38 / N/A / [id number] Description:Verified by Dr. Barr and surgical team. Knee Psn Fem Pscmnt Std Rt Sz9 N 74-3488-543-02 Ea - [id number] Implanted:Qty: 1 on 11/26/2015 by Jakub Barr MD at [facility] Total Jt Knee Right: KNEE DESIREE 05/30/2025 42-5006-06 6-02 / N/A / [id number] Description:Verified by Dr. Barr and surgical team. Knee Psn Tib Stem 5d Sz F Rt N 19-3322-000-02 Ea - [id number] Implanted:Qty: 1 on 11/26/2015 by Jakub Barr MD at [facility] Total Jt Knee Right: KNEE DESIREE 08/28/2025 42-5320-07 5- / N/A / [id number] Description:Verified by Dr. Barr and surgical team. Knee Psn Asf Ps Ve Rt13 6-9 Ef N 33-9620-635-13 Ea - [id number] Implanted:Qty: 1 on 11/26/2015 by Jakub Barr MD at [facility] Total Jt Knee Right: KNEE DESIREE 12/29/2019 42-5224-00 - / N/A / [id number] Description:Verified by Dr. Barr and surgical team. Knee Psn Fem Pscmnt Std Lftsz9 N 53-6786-019-01 Ea - [id number] Implanted:Qty: 1 on 11/26/2015 by Jakub Barr MD at [facility] Total Jt Knee Left: KNEE DESIREE 09/27/2025 42-5006-06 6- / N/A / [id number] Description:Verified by Dr. Barr and surgical team. Knee Psn Tib Stem 5d Sz F Lft N 99-7390-234-01 Ea - [id number] Implanted:Qty: 1 on 11/26/2015 by Jakub Barr MD at [facility] Total Jt Knee Left: KNEE DESIREE 10/28/2025 42-5320-07 5 / N/A / [id number] Description:Verified by Dr. Barr and surgical team. Knee Psn Ptla All Pe Ve 38mm N 08-4620-473-38 Ea - [id number] Implanted:Qty: 1 on 11/26/2015 by Jakub Barr MD at [facility] Total Jt Knee Left: KNEE DESIREE 10/29/2019 42-5402-00 0-38 / N/A / [id number] Description:Verified by Dr. Barr and surgical team. [id number] Implanted:Qty: 1 on 10/22/2016 by Young Coles MD Right: BREAST 01/29/2017 / [id number] Procedures Procedure Name Priority Date/Time Associated Diagnosis Comments CT CHEST WITHOUT CONTRAST Routine 06/19/2022 1:18 PM HEEL MOLDER Lung nodule MAMMOGRAM JENNIFER DIGITAL SCREENING KIM [...] COMPREHENSIVE METABOLIC PANEL Routine 04/27/2020 5:30 AM HEEL MOLDER DEXA SCAN Routine 01/12/2019 2:57 PM CDT History of menopause HEP C ANTIBODY REFLEX TO QUANTITATIVE CONFIRMATION Routine 10/14/2016 10:17 AM CDT Need for hepatitis C screening test from Last 3 Months or Most Recently Relevant to Health Maintenance Results * CT CHEST WITHOUT CONTRAST (06/19/2022 1:18 PM HEEL MOLDER) Anatomical Region Laterality Modality Chest, Lung Computed Tomogra phy 06/19/2022 4:38 PM HEEL MOLDER Narrative 06/19/2022 4:44 PM HEEL MOLDER Patient Name: ANNA VERMA Date of : [...] Roman Guzman MD on 06/19/2022 4:44 PM HEEL MOLDER Patient/Procedure Information: [facility] MRN/MARGE: [id number] Order Number: [id number] Accession Number: [id number] Ordering Provider: SHAWN WARE Authorizing Provider: SHAWN [...] Roman Guzman MD on 06/19/2022 4:44 PM HEEL MOLDER Patient/Procedure Information: [facility] MRN/MARGE: [id number] Order Number: [id number] Accession Number: [id number] Ordering Provider: SHAWN WARE Authorizing Provider: SHAWN WARE Shawn Ware SOFTWARE PRODUCT MANAGER-DIGITAL CAMPAIGN SPECIALIST CT Final R esult * MAMMOGRAM JENNIFER [...] on 02/09/2022 11:44 AM CDT Patient/Procedure Information: [facility] MRN/MARGE: [id number] Order Number: [id number] Accession Number: [id number] Ordering Provider: GEOVANNA LERNER Authorizing Provider: GEOVANNA LERNER Authorjagdish Provider Result Type Result Stat us Geovanna Lerner MD MAMMOGRAPHY Final Result * (ABNORMAL) LIPID PANEL (02/06/2022 1:40 PM CDT) Cholesterol 162 100 - 200 mg/dL 02/06/2022 2:33 PM CDT [facility] Triglyceride 284(H) 35 - 150 mg/dL 02/06/2022 2:33 PM CDT [facility] HDL 54 40 - 60 mg/dL 02/06/2022 2:33 PM CDT [facility] LDL Direct 61 30 - 130 mg/dL 02/06/2022 2:33 PM CDT [facility] Fasting Yes Yes, No, Unknown 02/06/2022 2:33 PM CDT [facility] Blood BLOOD SPECIMEN / Unknown Venipuncture / Unknown 02/06/2022 1:40 PM CDT 02/06/2022 1:40 PM CDT us Geovanna Lerner MD LAB BLOOD Final Result [facility] [address] [place], [place] [id number] * (ABNORMAL) GLYCATED HEMOGLOBIN (02/06/2022 1:40 PM CDT) Hgb A1C 7.1(H) 4.6 - 5.6 % 02/06/2022 2:11 PM CDT [facility] Blood BLOOD SPECIMEN / Unknown Venipuncture / Unknown 02/06/2022 1:40 PM CDT 02/06/2022 1:40 PM CDT Narrative [facility] - 02/06/2022 2:11 PM CDT Reference Range 4.6-5.6% Prediabetic Range 5.7-6.4% Diabetic Range >6.5% Geovanna Lerner MD LAB BLOOD Final Result [facility] [address] [place] [address] * (ABNORMAL) BASIC METABOLIC PANEL (02/06/2022 1:40 PM CDT) Glucose 121(H) 70 - 100 mg/dL 02/06/2022 2:24 PM CDT [facility] BUN 19(H) 7 - 17 mg/dL 02/06/2022 2:24 PM CDT [facility] Creatinine 1.40(H) 0.50 - 1.00 mg/dL 02/06/2022 2:24 PM CDT [facility] BUN/Creatinine Ratio 13.6(L) 15.0 - 20.0 02/06/2022 2:24 PM CDT [facility] Sodium 140 135 - 145 meq/L 02/06/2022 2:24 PM CDT [facility] Potassium 4.6 3.5 - 5.1 meq/L 02/06/2022 2:24 PM CDT [facility] Chloride 102 98 - 107 meq/L 02/06/2022 2:24 PM CDT [facility] CO2 30 22 - 30 meq/L 02/06/2022 2:24 PM CDT [facility] Anion Gap with K 13 6 - 20 meq/L 02/06/2022 2:24 PM CDT [facility] Calcium 9.2 8.4 - 10.2 mg/dL 02/06/2022 2:24 PM CDT [facility] Age 66 Years 02/06/2022 2:24 PM CDT [facility] eGFR Non- 37 mL/min/1.73 m2 02/06/2022 2:24 PM CDT [facility] eGFR 45 mL/min/1.73 m2 02/06/2022 2:24 PM CDT [facility] Comment: The estimated Glomerular Filtration Rate (eGFR) [...] Yes, No, Unknown 02/06/2022 2:24 PM CDT [facility] Blood BLOOD SPECIMEN / Unknown Venipuncture / Unknown 02/06/2022 1:40 PM CDT 02/06/2022 1:40 PM CDT Geovanna Lerner MD LAB BLOOD Final Result [address] [address] * DILATED EYE EXAM - OUTSIDE RESULT (11/07/2021) Diabetic Eye Exam (External Result): Normal [facility] Anatomical Region Laterality Modality Other Abstract Provider OPHTHALMOLOGY SERVICES ORDERAB LES Final Result * PROTEIN / CREATININE INDEX, URINE (09/29/2021 11:27 AM CDT) Protein Total Urine <6.8 <14.0 mg/dL 09/29/2021 10:13 PM CDT [facility] Creatinine Urine 79.2 No Reference Range Established mg/dL 09/29/2021 10:13 PM CDT [facility] Protein/Creati nine Index 09/29/2021 10:13 PM CDT [facility] Comment:Unable to calculate Protein/Creatinine Ratio. Urine URINE SPECIMEN / Unknown 09/29/2021 11:27 AM CDT 09/29/2021 11:27 AM CDT us Natalie Estrada MD LAB [place] [address] * (ABNORMAL) COMPREHENSIVE METABOLIC PANEL (04/27/2020 5:30 AM HEEL MOLDER) Glucose 190(H) 70 - 100 mg/dL 04/27/2020 6:19 AM HEEL MOLDER [facility] BUN 18(H) 7 - 17 mg/dL 04/27/2020 6:19 AM HEEL MOLDER [facility] Creatinine 0.80 0.50 - 1.00 mg/dL 04/27/2020 6:19 AM HEEL MOLDER [facility] BUN/Creatinine Ratio 22.5(H) 15.0 - 20.0 04/27/2020 6:19 AM HEEL MOLDER [facility] Sodium 138 135 - 145 meq/L 04/27/2020 6:19 AM HEEL MOLDER [facility] Potassium 4.1 3.5 - 5.1 meq/L 04/27/2020 6:19 AM HEEL MOLDER [facility] Chloride 108(H) 98 - 107 meq/L 04/27/2020 6:19 AM HEEL MOLDER [facility] CO2 22 22 - 30 meq/L 04/27/2020 6:19 AM HEEL MOLDER [facility] Anion Gap with K 12 6 - 20 meq/L 04/27/2020 6:19 AM HEEL MOLDER [facility] Calcium 8.9 8.4 - 10.2 mg/dL 04/27/2020 6:19 AM HEEL MOLDER [facility] Protein Total 6.7 6.3 - 8.2 g/dL 04/27/2020 6:19 AM HEEL MOLDER [facility] Albumin 3.6 3.5 - 5.0 g/dL 04/27/2020 6:19 AM HEEL MOLDER [facility] Alkaline Phosphatase 71 38 - 126 U/L 04/27/2020 6:19 AM [facility] AST - SGOT 48(H) 15 - 46 U/L 04/27/2020 6:19 AM [facility] ALT - SGPT 37(H) 0 - 35 U/L 04/27/2020 6:19 AM [facility] Bilirubin Total <0.8 0.2 - 1.3 mg/dL 04/27/2020 6:19 AM [facility] Corrected Calcium 9.2 8.4 - 10.2 mg/dL 04/27/2020 6:19 AM [facility] Age 65 Years 04/27/2020 6:19 AM [facility] eGFR Non- 72 mL/min/1.7 3m2 04/27/2020 6:19 AM [facility] eGFR 87 mL/min/1.7 3m2 04/27/2020 6:19 AM [facility] Blood BLOOD SPECIMEN / Unknown Venipuncture / Unknown 04/27/2020 5:30 AM HEEL MOLDER 04/27/2020 5:55 AM HEEL MOLDER Lynda Sandoval MD LAB BLOOD Final Result [facility] [address] [place] [address] * DEXA SCAN (01/12/2019 2:57 PM CDT) [...] trademark of the World Health Organization Collaborating [place] [facility] [employer] [facility], [employer] [place]. Finalized by: Sara Boucher MD on 01/17/2019 5:11 PM CDT Patient/Procedure Information: [facility] MRN/MARGE: [id number] Order Number: [id number] Accession Number: [id number] Ordering Provider: GEOVANNA LERNER Authorizing Provider: GEOVANNA [...] atrademark of the World Health Organization Collaborating [place] [facility], [employer] [place]. Finalized by: Sara Boucher MD on 01/17/2019 5:11 PM CDT Patient/Procedure Information: [facility] MRN/[facility]: [id number] Order Number: [id number] Accession Number: [id number] Ordering Provider: GEOVANNA LERNER Authorizing Provider: GEOVANNA LERNER Authorjagdish Provider Result Type Result Stat us Geovanna Lerner MD MAMMOGRAPHY Final Result * (ABNORMAL) HEPATITIS C ANTIBODY REFLEX TO HCV RNA CONFIRMATION (10/14/2016 10:17 AM CDT) Hepatitis C Antibody Interp Reactive( A) Nonreactive 10/14/2016 11:28 PM CDT [facility] Comment:Confirmatory testing sent to [place]. Blood BLOOD SPECIMEN / Unknown Venipuncture / Unknown 10/14/2016 10:17 AM CDT 10/14/2016 10:16 AM CDT us Geovanna Lerner MD LAB BLOOD Final Result [facility] [address] [place] [address] from Last 3 Months or Most Recently Relevant to Health Maintenance Advance Directives For more information, please contact: [phone] Documents on File Type Date Recorded Patient Terminal Carman Expl anation Advance Directives and Living Will [...] 7:32 AM 09/26/2015 5:57 PM Care Teams Manager Science Relationship Specialty Start Date End Date Provider, No Attributed, RESOURCE [address] PCP - Attributed Provider 02/23/24 Natalie Estrada MD [address] [place] [address] Nephrology (Internal Medicine) 09/18/21 Jakub Barr MD [address] [place] [address] Orthopedic Surgery 09/18/21 Shawn Ware APRN-DIGITAL CAMPAIGN SPECIALIST [address] [place] [address] DIGITAL CAMPAIGN SPECIALIST - Oncology 09/18/21
--- OUTSIDE RECORDS SUMMARY | 2024-08-15 14:49 | XMS_ITS | Encounter Summary ---
Author Organization [place] [facility] [facility] Address [address] [place] [address] [address] [place] [address] Care Team Providers Care Chargeback Specialist Name Role Phone Ambrosio Hill MD Primary Care Provider [phone] Ambrosio Hill MD Unavailable Provider, No Attributed RESOURCE Unavailable Unavailable Ambrosio Hill MD Unavailable Ambrosio Hill MD Unavailable Natalie Estrada MD Unavailable [phone] Jakub Barr MD Unavailable [phone] Merary Ware SCHOOL PSYCHOLOGY PROFESSOR-CAP INSPECTOR Unavailable [phone] Provider, No Attributed RESOURCE Unavailable Unavailable Ambrosio Hill MD Unavailable Provider, No Attributed RESOURCE Unavailable Unavailable Encounter Details Date Type Department Care Team (Late st Contact Info) Description 12/27/2014 Hospital Telephone Encounter [facility] [address] [place] [address] Devan Rooney, EP [address] [place] [address] Social History Tobacco Use Types Packs/Day Years [...] COVID-19 04/23/2020 04/23/2020 05/03/2020 11:5 7 PM SUPERINTENDENT MENAGERIE documented as of this encounter Care Teams Chargeback Specialist Relationship Specialty Start Date End Date Ambrosio Hill MD [address] [place] [place] [address] PCP - General Family Medicine 07/06/14 03/04/22 Ambrosio Hill MD [address] [place] [address] PCP - Attributed Provider 01/30/16 04/19/16 Provider, No Attributed, RESOURCE [address] PCP - Attributed Provider 04/20/16 04/21/16 Ambrosio Hill MD [address] [place] [address] PCP - Attributed Provider 04/22/16 11/21/20 Ambrosio Hill MD [address] [place] [place] [address] PCP - Attributed Provider 11/22/20 03/23/22 Provider, No Attributed, RESOURCE [address] PCP - Attributed Provider 03/24/22 05/26/22 Ambrosio Hill MD [address] [place] [address] PCP - Attributed Provider 05/27/22 02/22/24 Provider, No Attributed, RESOURCE [address] PCP - Attributed Provider 02/23/24 Natalie Estrada MD [address] [place] [address] Nephrology (Internal Medicine) 09/18/21 Jakub Barr MD [facility] [place] [address] Orthopedic Surgery 09/18/21 Merary Ware, SCHOOL PSYCHOLOGY PROFESSOR-CAP INSPECTOR [address] [place] [address] CAP INSPECTOR - Oncology 09/18/21 documented as of this encounter
--- OUTSIDE RECORDS SUMMARY | 2024-08-15 14:49 | XMS_ITS | Encounter Summary ---
Author Organization [facility] Address [address] [place] [address] [address] [place] [address] Care Team Providers Care Positive Printer Operator Name Role Phone Gen Michaels MD Primary Care Provider [phone] Ambrosio Hill MD Primary Care Provider [phone] Ambrosio Hill MD Unavailable Provider, No Attributed RESOURCE Unavailable Unavailable Ambrosio Hill MD Unavailable + Ambrosio Hill MD Unavailable Natalie Estrada MD Unavailable [phone] Jakub Barr MD Unavailable [phone] Merary Ware WEATHERIZATION AND HOUSING INSPECTOR-LEARNING AND DEVELOPMENT DIRECTOR Unavailable [phone] Provider, No Attributed RESOURCE Unavailable Unavailable Ambrosio Hill MD Unavailable + Provider, No Attributed RESOURCE Unavailable Unavailable Encounter Details Date Type Department Care Team (Late st Contact Info) Description 2014 Dictated / No Visit [facility]ILY [facility] [address] [place] [address] Gen Michaels MD [address] [place], [place] [id number] Social History Tobacco Use Types Packs/Day Years [...] 2014 11:01 AM CDT 2014 RAJINDER VERMA [address] [place] [address] MR#: [id number] CSN: Dear Rajinder: I have received the [...] P.S. If you have signed up for [employer], please message me that you have received this letter. [id number] documented in this encounter Plan of Treatment Not on file documented as of this encounter Visit Diagnoses Not on filedocumented in this encounter Additional Health Concerns Infection Onset Date Last Indicated Resolved Time COVID-19 04/23/2020 04/23/2020 05/03/2020 11:5 7 PM MACHINIST GENERAL documented as of this encounter Care Teams Positive Printer Operator Relationship Specialty Start Date End Date Gen Michaels MD [address] [place] [address] PCP - General Family Medicine 07/25/13 07/05/14 Ambrosio Hill MD [address] [place] [address] PCP - General Family Medicine 07/06/14 03/04/22 Ambrosio Hill MD [address] [place] [address] PCP - Attributed Provider 01/30/16 04/19/16 Provider, No Attributed, RESOURCE [address] PCP - Attributed Provider 04/20/16 04/21/16 Ambrosio Hill MD [address] [place] [address] PCP - Attributed Provider 04/22/16 11/21/20 Ambrosio Hill MD [address] [place] [address] PCP - Attributed Provider 11/22/20 03/23/22 Provider, No Attributed, RESOURCE [address] PCP - Attributed Provider 03/24/22 05/26/22 Ambrosio Hill MD [address] [place] [address] PCP - Attributed Provider 05/27/22 02/22/24 Provider, No Attributed, RESOURCE [address] PCP - Attributed Provider 02/23/24 Natalie Estrada MD [address] [place] [address] Nephrology (Internal Medicine) 09/18/21 Jakub Barr MD [facility] [place] [address] Orthopedic Surgery 09/18/21 Merary Ware, WEATHERIZATION AND HOUSING INSPECTOR-LEARNING AND DEVELOPMENT DIRECTOR [address] [place], [place] [address] [address] LEARNING AND DEVELOPMENT DIRECTOR - Oncology 09/18/21 documented as of this encounter
--- OUTSIDE RECORDS SUMMARY | 2024-08-15 14:50 | XMS_ITS | Encounter Summary ---
Author Organization [facility] Address [address] [place] [address] Care Team Providers Care Station Manager Name Role Phone Laly Dickey P.A.-C. Primary Care Pro vider Encounter Details Date Type Department Care Team (Late st Contact Info) Description 06/26/2024 Clinical Communication Department of Neurologic Surgery in [place], [place] [address] [place] [phone] Agustin Granda M.D., Ph.D. [address] [place] [phone] Social History Tobacco Use Types Packs/Day Years Used Date Smoking Tobacco: Former Cigarettes 2 30 0 11/13/1975 - 11/12/2005 Passive Smoke Exposure: Past Smokeless Tobacco: Never Alcohol Use Standard Drinks/Week Comments Not Currently 0 (1 standard drink = 0.6 oz pur e alcohol) [facility] Utilities Answer Date Recorded In the past [...] have a [facility] place to live 06/23/2024 Comments No Sex and Gender Information Value Date Recorded Sex Assigned at Female 03/19/2023 10:10 AM CDT Legal Sex Female 1:31 PM LOWERATOR OPERATOR Gender Identity Female 03/19/2023 10:10 AM CDT Sexual Orientation Not on file documented as of this encounter Miscellaneous Notes * Telephone Encounter - Brina Rich R.N. - 06/27/2024 9:41 AM LOWERATOR OPERATOR SUBJECTIVE CHIEF COMPLAINT / REASON FOR [...] following references were used: nursing clinical judgement RATOR OPERATOR documented in this encounter Plan of Treatment Upcoming Encounters Date Type Department Care Team (Late st Contact Info) Description 09/20/2024 3:00 PM CDT Appointment Department of Neurology in [place], [place] [address] [place] [phone] Carmen Petit APRN, C.N.P., M.S.N. [address] [place] [phone] 09/20/2024 3:45 PM CDT Appointment Department of Radiology, [facility], in [place], [place] [address] [place] [phone] Carmen Petit APRN, C.N.P., M.S.N. [address] [place] [phone] 09/21/2024 9:30 AM CDT Office Visit Department of Neurologic Surgery in [place], [place] [address] [place] [phone] Ashley Watts P.A.-C. [address] [place] [phone] 10/09/2024 9:30 AM CDT Office Visit Department of Otorhinolaryngology in [place], [place] [address] [place] [phone] Montserrat Jacobs M.D. [address] [place] [phone] Scheduled Procedures Name Priority Associated Diagnoses Date/Ti me ARTHROPLASTY TOTAL REVERSE SHOULDER Fracture 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 documented as of this encounter Visit Diagnoses Not on filedocumented in this encounter Additional Health Concerns Assessment Noted Time PHQ-9 Depression Total Score: 5 02/14/20 24 9:00 AM CDT documented as of this encounter Care Teams Station Manager Relationship Specialty Start Date End Date Laly Dickey MPAS, P.A.-C. [address] [place] [phone] PCP - General Internal Medicine 07/28/22 documented as of this encounter
--- OUTSIDE RECORDS SUMMARY | 2024-08-15 14:50 | XMS_ITS | Encounter Summary ---
Author Organization [facility] Address [address] [place] [address] Care Team Providers Care Leak Detection Engineer Name Role Phone Laly Dickey, P.A.-CKavya Primary Care Pro vider Reason for Visit * Reason Comments Med Refill Encounter Details Date Type Department Care Team (Late st Contact Info) Description 07/21/2024 Refill Department of Community Internal Medicine in [place], [place] 300 [place] [phone] Laly Dickey MPAS, P.A.-C. [address] [place] [phone] Med Refill Social History Tobacco Use Types Packs/Day Years Used Date Smoking Tobacco: Former Cigarettes 2 30 0 11/13/1975 - 11/12/2005 Passive Smoke Exposure: Past Smokeless Tobacco: Never Alcohol Use Standard Drinks/Week Comments Not Currently 0 (1 standard drink = 0.6 oz pur e alcohol) [facility] Utilities Answer Date Recorded In the past 12 months has e [employer], gas, oil, or water company threatened to [...] have a [facility] to live 06/23/2024 Comments No Sex and Gender Information Value Date Recorded Sex Assigned at Female 03/19/2023 10:10 AM CDT Legal Sex Female 1:31 PM HEALTH DATA ADMINISTRATOR Gender Identity Female 03/19/2023 10:10 AM CDT Sexual Orientation Not on file documented as of this encounter Miscellaneous Notes * Telephone Encounter - Ping Saha C.M.A. - 07/24/2024 3:28 PM HEALTH DATA ADMINISTRATOR SUBJECTIVE CHIEF COMPLAINT / REASON FOR CALL Med Refill Information Discussed Called and informed patient of prescription sent to pharmacy per Laly Dickey PA.-C. PLAN Disposition/Recommendation: self-care . appropriate at this time, patient encouraged to call back with questions Information/Education: patient/caller able to teach back Caller agreeable to plan of care: yes The following references were used: provider Laly Dickey P.A.-C. TH DATA ADMINISTRATOR documented in this encounter Plan of Treatment Upcoming Encounters Date Type Department Care Team (Late st Contact Info) Description 09/20/2024 3:00 PM CDT Appointment Department of Neurology in [place], [place] [address] [place] [phone] Carmen Petit APRN, Sommer.N.P., M.S.N. [address] [place] [phone] 09/20/2024 3:45 PM CDT Appointment Department of Radiology, [facility], in [place], [place] [address] [place] [phone] Carmen Petit APRN, C.N.P., M.S.N. [address] [place] [phone] 09/21/2024 9:30 AM CDT Office Visit Department of Neurologic Surgery in [place], [place] [address] [place] [phone] Ashley Watts P.A.-C. [address] [place] [phone] 10/09/2024 9:30 AM CDT Office Visit Department of Otorhinolaryngology in [place], [place] [address] [place] [phone] Montserrat Jacobs M.D. 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 [address] [place] [phone] PCP - General Internal Medicine 07/28/22 documented as of this encounter
--- OUTSIDE RECORDS SUMMARY | 2024-08-15 14:50 | XMS_ITS | Encounter Summary ---
Author Organization [facility] Address [address] [place] [address] Care Team Providers Care Director Of Claims Name Role Phone Laly Dickey P.A.-C. Primary Care Pro vider Encounter Details Date Type Department Care Team (Late st Contact Info) Description 06/13/2024 Clinical Communication Pharmacy Prior Auth [phone] Eli Baldwin I. Social History Tobacco Use Types Packs/Day Years Used Date Smoking Tobacco: Former Cigarettes 2 30 0 11/13/1975 - 11/12/2005 Passive Smoke Exposure: Never Smokeless Tobacco: Never Alcohol Use Standard Drinks/Week Comments Not Currently 0 (1 standard drink = 0.6 oz pur e alcohol) [facility] Utilities Answer Date Recorded In the past 12 months has [facility] [employer], gas, oil, or water [employer] threatened to shut off services in your [...] a [facility] place to live 06/23/2024 Comments No Sex and Gender Information Value Date Recorded Sex Assigned at Female 03/19/2023 10:10 AM CDT Legal Sex Female 1:31 PM EDGE PLUGGER Gender Identity Female 03/19/2023 10:10 AM CDT [...] PM CDT Appointment Department of Neurology in [place], [place] [address] [place] [phone] Carmen Petit APRN, C.N.P., M.S.N. [address] [place] [phone] 09/20/2024 3:45 PM CDT Appointment Department of Radiology, [facility], in [place], [place] [address] [place] [phone] Carmen Petit APRN, C.N.P., M.S.N. [address] [place] [phone] 09/21/2024 9:30 AM CDT Office Visit Department of Neurologic Surgery in [place], [place] [address] [place] [phone] Ashley Watts P.A.-C. [address] [place] [phone] 10/09/2024 9:30 AM CDT Office Visit Department of Otorhinolaryngology in [place], [place] [address] [place] [phone] Montserrat Jacobs M.D. 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 [address] [place] [phone] PCP - General Internal Medicine 07/28/22 documented as of this encounter
--- OUTSIDE RECORDS SUMMARY | 2024-08-15 14:50 | XMS_ITS | Encounter Summary ---
Author Organization [facility] Address [address] [place] [address] Care Team Providers Care Election Supervisor Name Role Phone Laly Dickey P.A.-C. Primary Care Pro vider Encounter Details Date Type Department Care Team (Late st Contact Info) Description 07/03/2024 Clinical Communication Section of Infectious Diseases in [place], [place] [address] [place] [phone] Nunu Peters M.B.B.S. [address] [place] [phone] Social History Tobacco Use Types Packs/Day Years Used Date Smoking Tobacco: Former Cigarettes 2 30 0 11/13/1975 - 11/12/2005 Passive Smoke Exposure: Past Smokeless Tobacco: Never Alcohol Use Standard Drinks/Week Comments Not Currently 0 (1 standard drink = 0.6 oz pur e alcohol) [facility] Utilities Answer Date Recorded In the [...] your living situation today? I have a [facility] place to live 06/23/2024 Comments No Sex and Gender Information Value Date Recorded Sex Assigned at Female 03/19/2023 10:10 AM CDT Legal Sex Female 1:31 PM DEFENCE FORCE MEMBER OTHER RANKS Gender Identity Female 03/19/2023 10:10 AM CDT Sexual Orientation Not on file documented as of this encounter Miscellaneous Notes * Telephone Encounter - Nunu Peters M.B.B.S. 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 NCE FORCE MEMBER OTHER RANKS * Telephone Encounter - Nunu Peters M.B.B.S. - 07/03/2024 3:19 PM CST ----- Message from Yesica Ocampo, Pharm.D., R.Ph. sent at 07/03/2024 1:27 PM DEFENCE FORCE MEMBER OTHER RANKS ----- Patient with Right acute parotitis with [...] Wednesday-Wednesday 8 am - 4:30 pm, non-Holidays NCE FORCE MEMBER OTHER RANKS documented in this encounter Plan of Treatment Upcoming Encounters Date Type Department Care Team (Late st Contact Info) Description 09/20/2024 3:00 PM CDT Appointment Department of Neurology in [place], [place] [address] [place] [phone] Carmen Petit APRN, C.NKavyaP., M.S.N. [address] [place] [phone] 09/20/2024 3:45 PM CDT Appointment Department of Radiology, [facility], in [place], [place] [address] [place] [phone] Carmen Petit APRN, C.N.P., M.S.N. [address] [place] [phone] 09/21/2024 9:30 AM CDT Office Visit Department of Neurologic Surgery in [place], [place] [address] [place] [phone] Ashley Watts P.A.-C. [address] [place] [phone] 10/09/2024 9:30 AM CDT Office Visit Department of Otorhinolaryngology in [place], [place] [address] [place] [phone] Montserrat Jacobs M.D. [address] [place] [phone] Scheduled Procedures Name Priority Associated Diagnoses Date/Ti me ARTHROPLASTY TOTAL REVERSE SHOULDER Fracture 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 documented as of this encounter Visit Diagnoses Not on filedocumented in this encounter Additional Health Concerns Assessment Noted Time PHQ-9 Depression Total Score: 5 02/14/20 24 9:00 AM CDT documented as of this encounter Care Teams Election Supervisor Relationship Specialty Start Date End Date Laly Dickey MPAS PJose David. [address] [place] [phone] PCP - General Internal Medicine 07/28/22 documented as of this encounter
--- OUTSIDE RECORDS SUMMARY | 2024-08-15 14:50 | XMS_ITS | Encounter Summary ---
Author Organization [facility] Address [address] [place] [address] Care Team Providers Care Bulk Loader Name Role Phone Laly Dickey, P.A.-CKavya Primary Care Pro vider Encounter Details Date Type Department Care Team (Latest Contact Info) Description 07/05/2024 10:43 AM JUICE WEIGHER - 07/05/2024 11:59 PM [facility] Hospital Encounter Department of Laboratory Medicine in [place], [place] 300 [place] [phone] Laly Dickey MPAS, P.A.-CKavya [address] [place] [phone] Parotitis Discharge Disposition: Home or Self Care Social History Tobacco Use Types Packs/Day Years Used Date Smoking Tobacco: Former Cigarettes 2 30 0 11/13/1975 - 11/12/2005 Passive Smoke Exposure: Past Smokeless Tobacco: Never Alcohol Use Standard Drinks/Week Comments Not Currently 0 (1 standard drink = 0.6 oz pur e alcohol) [facility] Utilities Answer Date Recorded In the past 12 months has e [employer], gas, oil, or water [employer] threatened to shut off services in your [...] your living situation today? I have a [facility] place to live 06/23/2024 Comments No Sex and Gender Information Value Date Recorded Sex Assigned at Female 03/19/2023 10:10 AM CDT Legal Sex Female 1:31 PM JUICE WEIGHER Gender Identity Female 03/19/2023 10:10 AM CDT [...] PM CDT Appointment Department of Neurology in [place], [place] [address] [place] [phone] Carmen Petit APRN, C.N.P., M.S.N. [address] [place] [phone] 09/20/2024 3:45 PM CDT Appointment Department of Radiology, [facility], in [place], [place] [address] [place] [phone] Carmen Petit APRN, C.N.P., M.S.N. [address] [place] [phone] 09/21/2024 9:30 AM CDT Office Visit Department of Neurologic Surgery in [place], [place] [address] [place] [phone] Ashley Watts P.A.-C. [address] [place] [phone] 10/09/2024 9:30 AM CDT Office Visit Department of Otorhinolaryngology in [place], [place] [address] [place] [phone] Montserrat Jacobs M.D. 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 LAB BLOOD ADD-ON Final Result [facility] [address] [place] [address], [place] OWAT [facility] in [place] [address] [place] [address] * (ABNORMAL) CBC with Differential, Blood (07/05/2024 10:51 AM JUICE WEIGHER) Hemoglobin 12.4 11.6 - 15.0 g/dL 07/05/2024 10:55 AM JUICE WEIGHER FB60 Hematocrit 37.3 35.5 - 44.9 % 07/05/2024 10:55 AM JUICE WEIGHER FB60 Erythrocytes 4.12 3.92 - 5.13 x10(12)/L 07/05/2024 10:55 AM JUICE WEIGHER FB60 MCV 90.5 78.2 - 97.9 fL 07/05/2024 10:55 AM JUICE WEIGHER FB60 RBC Distrib Width 13.0 12.2 - 16.1 % 07/05/2024 10:55 AM JUICE WEIGHER FB60 Platelet Count 349 157 - 371 x10(9)/L 07/05/2024 10:55 AM JUICE WEIGHER FB60 Leukocytes 9.8(H) 3.4 - 9.6 x10(9)/L 07/05/2024 10:55 AM JUICE WEIGHER FB60 Neutrophils 6.07 1.56 - 6.45 x10(9)/L 07/05/2024 10:55 AM JUICE WEIGHER FB60 Lymphocytes 2.67 0.95 - 3.07 x10(9)/L 07/05/2024 10:55 AM JUICE WEIGHER FB60 Monocytes 0.77 0.26 - 0.81 x10(9)/L 07/05/2024 10:55 AM JUICE WEIGHER FB60 Eosinophils 0.23 0.03 - 0.48 x10(9)/L 07/05/2024 10:55 AM JUICE WEIGHER FB60 Basophils 0.05 0.01 - 0.08 x10(9)/L 07/05/2024 10:55 AM JUICE WEIGHER FB60 Blood (Blood, Venous) 07/05/2024 10:51 AM JUICE WEIGHER 07/05/2024 10:51 AM JUICE WEIGHER Laly LAKHANI, P.A.-C. LAB BLOOD ADD-ON Final Result Performing Organization Address City/State/[facility] Co de Phone Number [facility] [address] [place] [address], [facility] FB60 [facility] in [place] [address] [place] [address] documented in this encounter Visit Diagnoses Diagnosis Parotitis documented in this encounter Additional Health Concerns Assessment Noted Time PHQ-9 Depression Total Score: 0 07/05/19 25 10:01 AM JUICE WEIGHER documented as of this encounter Care Teams Bulk Loader Relationship Specialty Start Date End Date Laly Dickey MPAS, P.A.-C. [address] [place] [phone] (work) PCP - General Internal Medicine 07/28/22 documented as of this encounter
--- OUTSIDE RECORDS SUMMARY | 2024-08-15 14:50 | XMS_ITS | Encounter Summary ---
Author Organization [facility] Address [address] [place] [address] Care Team Providers Care Real Estate Closer Name Role Phone Laly Dickey P.A.-C. Primary Care Pro vider Reason for Visit * Reason Onset Date Comments Pre-visit Intake 08/07/2024 * Appointment Request (Routine) - Authorized Specialty Diagnoses / Procedures Referred By Nemo t Referred To Contact Neurological Surgery Referral ID Status Reason Start Date Expiration Date V isits Requested Visits Authorized [id number] Authorized 07/03/2024 10/03/2025 1 1 Encounter Details Date Type Department Care Team (Latest Contact Info) Description 08/07/2024 3:15 PM CDT Clinical Communication Virtual Review in [place], [place] 200 [place] [phone] Pre-visit Intake Social History Tobacco Use Types Packs/Day Years Used Date Smoking Tobacco: Former Cigarettes 2 30 0 11/13/1975 - 11/12/2005 Passive Smoke Exposure: Past Smokeless Tobacco: Never Tobacco Cessation:Counseling Given: Not Answered Comments:Quit smoking in 2002 Alcohol Use Standard Drinks/Week Comments Not Currently 0 (1 standard drink = 0.6 oz pur e alcohol) [facility] Utilities Answer Date Recorded In the [...] AM CDT Legal Sex Female 1:31 PM CLAY TRANSPORTER Gender Identity Female 03/19/2023 10:10 AM CDT Sexual Orientation Not on file documented as of this encounter Plan of Treatment Upcoming Encounters Date Type Department Care Team (Late st Contact Info) Description 09/20/2024 3:00 PM CDT Appointment Department of Neurology in [address] [phone] Carmen Petit APRN, Sommer.N.P., M.S.N. [address] [place] [phone] 09/20/2024 3:45 PM CDT Appointment Department of Radiology, [facility], in [place], [place] [address] [place] [phone] Carmen Petit APRN, C.N.P., M.S.N. [address] [place] [phone] 09/21/2024 9:30 AM CDT Office Visit Department of Neurologic Surgery in [address] [phone] Ashley Watts P.A.-C. [address] [place] [phone] 10/09/2024 9:30 AM CDT Office Visit Department of Otorhinolaryngology in [address] [phone] Montserrat Jacobs M.D. [address] [place] [phone] Scheduled Procedures Name Priority Associated Diagnoses Date/Ti me ARTHROPLASTY TOTAL REVERSE SHOULDER Fracture 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 documented as of this encounter Visit Diagnoses Not on filedocumented in this encounter Additional Health Concerns Assessment Noted Time PHQ-9 Depression Total Score: 0 07/05/19 25 10:01 AM CLAY TRANSPORTER documented as of this encounter Care Teams Real Estate Closer Relationship Specialty Start Date End Date Laly Dickey MPAS, P.A.-C. [address] [place] [phone] PCP - General Internal Medicine 07/28/22 documented as of this encounter
--- OUTSIDE RECORDS SUMMARY | 2024-08-15 14:50 | XMS_ITS | Encounter Summary ---
Author Organization [facility] Address [address] [place] [address] Care Team Providers Care Inside Contractor Sales Name Role Phone Laly Dickey P.A.-CKavya Primary Care Pro vider Encounter Details Date Type Department Care Team (Late st Contact Info) Description 06/20/2024 Results Follow-Up Department of Community Internal Medicine in [place], [place] [address] [place] [address] Laly Dickey MPAS P.A.-CKavya 300 [place] [address] CBC with Differential, Blood, CRP (C-Reactive Protein), Mumps Virus PCR, Buccal Social History Tobacco Use Types Packs/Day Years Used Date Smoking Tobacco: Former Cigarettes 2 30 0 11/13/1975 - 11/12/2005 Passive Smoke Exposure: Past Smokeless Tobacco: Never Alcohol Use Standard Drinks/Week Comments Not Currently 0 (1 standard drink = 0.6 oz pur e alcohol) [facility] Utilities Answer Date Recorded In the past 12 months has e [employer], gas, oil, or water [employer] threatened to shut off services in your [...] [facility] place to live 06/23/2024 Comments No Sex and Gender Information Value Date Recorded Sex Assigned at Female 03/19/2023 10:10 AM CDT Legal Sex Female 1:31 PM DISTANCE EDUCATION TEACHER Gender Identity Female 03/19/2023 10:10 AM CDT Sexual Orientation Not on file documented as of this encounter Functional Status * Intimate Partner Violence Question Answer Date of Assessment Author Within the last year, have y ou been humiliated or emotionally abused in other ways by your partner or ex-partner? No 06/23/2024 3:00 PM DISTANCE EDUCATION TEACHER Aguilar Combs M.S.N., R.N. Within the last year, have y ou been afraid of your partner or ex-partner? No 06/23/2024 3:00 PM DISTANCE EDUCATION TEACHER Deb Combs M.S.N., R.N. Within the last year, have y ou been raped or forced to have any kind of sexual activity by your partner or ex-partner? No 06/23/2024 3:00 PM DISTANCE EDUCATION TEACHER Rex Combs, M.S.N., R.N. Within the last year, have y ou been kicked, hit, slapped, or otherwise physically hurt by your partner or ex-partner? No 06/23/2024 3:00 PM Rex Lincoln, M.S.N., R.N. documented as of this encounter Plan of Treatment Upcoming Encounters Date Type Department Care Team (Late st Contact Info) Description 09/20/2024 3:00 PM CDT Appointment Department of Neurology in [place], [place] [address] [place] [address] Carmen Petit APRN, C.N.P., M.S.N. [address] [place] [address] 09/20/2024 3:45 PM CDT Appointment Department of Radiology, [facility], in [place], [place] [address] [place] [address] Carmen Petit APRN, C.N.P., M.S.N. [address] [place] [phone] 09/21/2024 9:30 AM CDT Office Visit Department of Neurologic Surgery in [place], [place] [address] [place] [phone] Ashley Watts P.A.-C. [address] [place] [phone] 10/09/2024 9:30 AM CDT Office Visit Department of Otorhinolaryngology in [place], [place] [address] [place] [phone] Montserrat Jacobs M.D. 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 [address] [place] [phone] PCP - General Internal Medicine 07/28/22 documented as of this encounter
--- OUTSIDE RECORDS SUMMARY | 2024-08-15 14:50 | XMS_ITS | Encounter Summary ---
Author Organization [facility] Address [address] [place] [address] Care Team Providers Care Dishwashing Machine Repairer Name Role Phone Laly Dickey, P.A.-C. Primary Care Pro vider Reason for Referral * Outpatient (Routine) - Authorized Specialty Diagnoses / Procedures Referred By Nemo morales Referred To Contact Community Internal Medicine Laly Dickey MPAS, P.A.-C. 300 [facility] [address] Phone: tel: fax: [facility] Region Referral ID Status Reason Start Date Expiration Date V isits Requested Visits Authorized [id number] Authorized 07/05/2024 01/04/2026 1 1 AIGN MANAGEMENT SPECIALIST Reason for Visit * Reason Comments Post Hospital Follow-up States in Hospit al for gland infection. [facility]. She states today she is worried as right side jaw is getting large again and hurts. * Outpatient (Routine) - Closed Specialty Diagnoses / Procedures Referred By Nemo morales Referred To Contact Community Internal Medicine Laly Dickey MPAS, P.A.-C. 300 [facility] [place] [address] Phone: tel: fax: [facility] Region Referral ID Status Reason Start Date Expiration Date Visits Re quested Visits Authorized [id number] Closed 07/04/2024 01/03/2026 1 1 Encounter Details Date Type Department Care Team (Late st Contact Info) Description 07/05/2024 10:30 AM CAMPAIGN MANAGEMENT SPECIALIST Office Visit Department of Community Internal Medicine in [place], [place] 300 [facility] [place] [address] Laly Dickey MPAS, P.A.-C. 300 [facility] [place] [phone] Parotitis (Primary Dx); Hydrocephalus Normal Pressure (HCC); Hyperlipidemia Mixed; Migraine Headache Social History Tobacco Use Types Packs/Day Years Used Date Smoking Tobacco: Former Cigarettes 2 30 0 11/13/1975 - 11/12/2005 Passive Smoke Exposure: Past Smokeless Tobacco: Never Alcohol Use Standard Drinks/Week Comments Not Currently 0 (1 standard drink = 0.6 oz pur e alcohol) [facility] Utilities Answer Date Recorded In the past 12 months has e [employer], gas, oil, or water [employer] threatened to shut off services in your [...] your living situation today? I have a [facility] place to live 06/23/2024 Comments No Sex and Gender Information Value Date Recorded Sex Assigned at Female 03/19/2023 10:10 AM CDT Legal Sex Female 1:31 PM CAMPAIGN MANAGEMENT SPECIALIST Gender Identity Female 03/19/2023 10:10 AM CDT Sexual Orientation Not on file documented as of this encounter Last Filed Vital Signs Vital Sign Reading Time Taken Comments Blood Pressure 94/61 07/05/2024 10:00 AM CAMPAIGN MANAGEMENT SPECIALIST Pulse 87 07/05/2024 10:00 AM CAMPAIGN MANAGEMENT SPECIALIST Temperature 36.8 C (98.2 F) 07/05/2024 10:00 AM CAMPAIGN MANAGEMENT SPECIALIST Respiratory Rate 20 07/05/2024 10:00 AM CAMPAIGN MANAGEMENT SPECIALIST Oxygen Saturation - - Inhaled Oxygen Concentration - - Weight 103 kg (227 lb 4.6 oz) 07/05/2024 10:00 A M CAMPAIGN MANAGEMENT SPECIALIST shoes on Height 170.2 cm (5' 7.01) 07/05/2024 10:00 AM Sommer LUQUE shoes on Body Mass Index 35.59 07/05/2024 10:00 AM CAMPAIGN MANAGEMENT SPECIALIST documented in this encounter Progress Notes * Laly Dickey MPAS, [place]. - 07/05/2024 10:30 AM CST SUBJECTIVE CHIEF COMPLAINT/REASON FOR VISIT Chief Complaint Patient presents with Post Hospital Follow-up States in Hospital for gland infection. [facility]. She states today she is worried as right side jaw is getting large again and hurts. HISTORY OF PRESENT ILLNESS Anna Ortega is a pleasant 69 y.o. female who presents to the clinic today for post hospital follow-up. She was admitted to [facility] 06/21/2024 and discharged 06/25/2024 with a [...] #1 Parotitis I reviewed discharge summary from [facility]. She has completed her outpatient antibiotics. She hasswelling and tenderness over right parotid gland today that seems to be new since she completed heroutpatient antibiotics. We checked a white blood cell count today which has improved from hospital discharge, still mildly elevated. I discussed current clinical symptoms with ID team in [place]. We will resume outpatient levofloxacin 500 mg daily and metronidazole 500 mg TID for 7 days. Parotid US has been ordered to evaluate for abscess which I have asked to be completed by end of this week. - CBC with Differential, Blood; Future; Expected date: 07/05/2024 - CRP (C-Reactive Protein); Future; Expected date: 07/05/2024 #2 Hydrocephalus Normal Pressure (HCC) Her DIE PRESS OPERATOR shunt placement is now scheduled for 08/14/2024. [...] Pain/Nonacute Pain., Disp: 28 tablet, Rfl: 0 AIGN MANAGEMENT SPECIALIST documented in this encounter Plan of Treatment Upcoming Encounters Date Type Department Care Team (Late st Contact Info) Description 09/20/2024 3:00 PM CDT Appointment Department of Neurology in [address] [phone] Carmen Petit APRN, C.N.P., M.S.N. [address] [place] [phone] 09/20/2024 3:45 PM CDT Appointment Department of Radiology, [facility], in [place], [place] [address] [place] [phone] Carmen Petti APRN, C.N.P., M.S.N. [address] [place] [phone] 09/21/2024 9:30 AM CDT Office Visit Department of Neurologic Surgery in [address] [phone] Aslhey Watts P.A.-CKavya [address] [place] [phone] 10/09/2024 9:30 AM CDT Office Visit Department of Otorhinolaryngology in [place], [place] [address] [place] [phone] Montserrat Jacobs M.D. [address] [place] [phone] Scheduled Procedures Name Priority Associated Diagnoses Date/Ti me ARTHROPLASTY TOTAL REVERSE SHOULDER Fracture 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 Scheduled Referrals Name Type Priority Associated Diagnoses Orde r Schedule Community Internal Medicine office visit (clinic) Outpatient Referral Routine Expected: 07/12/2024, Expires: 10/02/2025 documented as of this encounter Results * CRP (C-Reactive Protein) (07/05/2024 10:51 AM CAMPAIGN MANAGEMENT SPECIALIST) Pathologist [facility] C-Reactive Protein (CRP), P <3.0 <5.0 mg/L 07/05/2024 1:56 PM CAMPAIGN MANAGEMENT SPECIALIST OW Blood (Blood, Venous) 07/05/2024 10:51 AM CAMPAIGN MANAGEMENT SPECIALIST 07/05/2024 1:09 PM CAMPAIGN MANAGEMENT SPECIALIST us Laly LAKHANI, P.A.-C. LAB BLOOD ADD-ON Final Result [facility] [address] [place] [address], [facility] OWAT [facility] in [place] [address], [place] [address] * (ABNORMAL) CBC with Differential, Blood (07/05/2024 10:51 AM CAMPAIGN MANAGEMENT SPECIALIST) Pathologist [facility] Hemoglobin 12.4 11.6 - 15.0 g/dL 07/05/2024 10:55 AM CAMPAIGN MANAGEMENT SPECIALIST FB60 Hematocrit 37.3 35.5 - 44.9 % 07/05/2024 10:55 AM CAMPAIGN MANAGEMENT SPECIALIST FB60 Erythrocytes 4.12 3.92 - 5.13 x10(12)/L 07/05/2024 10:55 AM CAMPAIGN MANAGEMENT SPECIALIST FB60 MCV 90.5 78.2 - 97.9 fL 07/05/2024 10:55 AM CAMPAIGN MANAGEMENT SPECIALIST FB60 RBC Distrib Width 13.0 12.2 - 16.1 % 07/05/2024 10:55 AM CAMPAIGN MANAGEMENT SPECIALIST FB60 Platelet Count 349 157 - 371 x10(9)/L 07/05/2024 10:55 AM CAMPAIGN MANAGEMENT SPECIALIST FB60 Leukocytes 9.8(H) 3.4 - 9.6 x10(9)/L 07/05/2024 10:55 AM CAMPAIGN MANAGEMENT SPECIALIST FB60 Neutrophils 6.07 1.56 - 6.45 x10(9)/L 07/05/2024 10:55 AM CAMPAIGN MANAGEMENT SPECIALIST FB60 Lymphocytes 2.67 0.95 - 3.07 x10(9)/L 07/05/2024 10:55 AM CAMPAIGN MANAGEMENT SPECIALIST FB60 Monocytes 0.77 0.26 - 0.81 x10(9)/L 07/05/2024 10:55 AM CAMPAIGN MANAGEMENT SPECIALIST FB60 Eosinophils 0.23 0.03 - 0.48 x10(9)/L 07/05/2024 10:55 AM CAMPAIGN MANAGEMENT SPECIALIST FB60 Basophils 0.05 0.01 - 0.08 x10(9)/L 07/05/2024 10:55 AM CAMPAIGN MANAGEMENT SPECIALIST FB60 Blood (Blood, Venous) 07/05/2024 10:51 AM CAMPAIGN MANAGEMENT SPECIALIST 07/05/2024 10:51 AM CAMPAIGN MANAGEMENT SPECIALIST Laly LAKHANI, P.A.-C. LAB BLOOD ADD-ON Final Result [facility] [address] [place] [address], [facility] FB60 [facility] in [place] [address] [place] [address] documented in this encounter Visit Diagnoses Diagnosis Parotitis- Primary Hydrocephalus Normal Pressure (HCC) Hyperlipidemia Mixed Migraine Headache documented in this encounter Additional Health Concerns Assessment Noted Time PHQ-9 Depression Total Score: 0 07/05/19 25 10:01 AM CAMPAIGN MANAGEMENT SPECIALIST documented as of this encounter Care Teams Dishwashing Machine Repairer Relationship Specialty Start Date End Date Laly Dickey MPAS, P.A.-C. [address] [place] [address] PCP - General Internal Medicine 07/28/22 documented as of this encounter
--- OUTSIDE RECORDS SUMMARY | 2024-08-15 14:50 | XMS_ITS | Encounter Summary ---
Author Organization [facility] Address [address] [place] [address] Care Team Providers Care Agriculture Extension Specialist Name Role Phone Laly Dickey P.A.-C. Primary Care Pro vider Encounter Details Date Type Department Care Team (Late st Contact Info) Description 07/17/2024 Results Follow-Up [facility] [address] [place] [phone] Mona Sneed M.D., M.H.A. [address] [place] [phone] Bacteria / Cherry Culture, Blood #1, Bacteria / Cherry Culture, Blood #2, Fungal Culture, Routine Social History Tobacco Use Types Packs/Day Years Used Date Smoking Tobacco: Former Cigarettes 2 30 0 11/13/1975 - 11/12/2005 Passive Smoke Exposure: Past Smokeless Tobacco: Never Alcohol Use Standard Drinks/Week Comments Not Currently 0 (1 standard drink = 0.6 oz pur e alcohol) [facility] Utilities Answer Date Recorded In the [...] [facility] 06/23/2024 Comments No Sex and Gender Information Value Date Recorded Sex Assigned at Female 03/19/2023 10:10 AM CDT Legal Sex Female 1:31 PM STEWARD/STEWARDESS DINING ROOM Gender Identity Female 03/19/2023 10:10 AM CDT Sexual Orientation Not on file documented as of this encounter Plan of Treatment Upcoming Encounters Date Type Department Care Team (Late st Contact Info) Description 09/20/2024 3:00 PM CDT Appointment Department of Neurology in [address] [phone] Carmen Petit APRN, C.NKavyaP., M.S.N. [address] [place] [phone] 09/20/2024 3:45 PM CDT Appointment Department of Radiology, [facility] in [address] [phone] Carmen Petit APRN, C.N.P., M.S.N. [address] [place] [phone] 09/21/2024 9:30 AM CDT Office Visit Department of Neurologic Surgery in [address] [phone] Ashley Watts P.A.-C. [address] [place] [phone] 10/09/2024 9:30 AM CDT Office Visit Department of Otorhinolaryngology in [address] [phone] Montserrat Jacobs M.D. [address] [place] [phone] Scheduled Procedures Name Priority Associated Diagnoses Date/Ti me ARTHROPLASTY TOTAL REVERSE SHOULDER Fracture 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 documented as of this encounter Visit Diagnoses Not on filedocumented in this encounter Additional Health Concerns Assessment Noted Time PHQ-9 Depression Total Score: 0 07/05/19 25 10:01 AM STEWARD/STEWARDESS DINING ROOM documented as of this encounter Care Teams Agriculture Extension Specialist Relationship Specialty Start Date End Date Laly Dickey MPAS, P.A.-C. [address] [place] [phone] PCP - General Internal Medicine 07/28/22 documented as of this encounter
--- OUTSIDE RECORDS SUMMARY | 2024-08-15 14:50 | XMS_ITS | Encounter Summary ---
Author Organization [facility] Address [address] [place] [address] Care Team Providers Care Executive Team Leader Name Role Phone Laly Dickey P.A.-C. Primary [...] drink = 0.6 oz pur e alcohol) [facility] Utilities Answer Date Recorded In the past 12 months has e electric, gas, oil, or water [employer] threatened to shut off services in your [...] your living situation today? I have a [facility] place to live 06/23/2024 Comments No Sex and Gender Information Value Date Recorded Sex Assigned at Female 03/19/2023 10:10 AM CDT Legal Sex Female 1:31 PM RN COMMUNITY [facility] Gender Identity Female 03/19/2023 10:10 AM CDT Sexual Orientation Not on file documented as of this encounter Functional Status * Intimate Partner Violence Question Answer Date of Assessment Author Within the last year, have y ou been humiliated or emotionally abused in other ways by your partner or ex-partner? No 06/23/2024 3:00 PM RN COMMUNITY [facility] Aguilar Combs, M.S.N., R.N. Within the last year, have y ou been afraid of your partner or ex-partner? No 06/23/2024 3:00 PM RN [facility] Deb Combs M.S.N., R.N. Within the last year, have y ou been raped or forced to have any kind of sexual activity by your partner or ex-partner? No 06/23/2024 3:00 PM RN [facility] Rex Combs, M.S.N., R.N. Within the last year, have y ou been kicked, hit, slapped, or otherwise physically hurt by your partner or ex-partner? No 06/23/2024 3:00 PM Rex Lincoln, M.S.N., R.N. documented as of this encounter Progress Notes * Adriane Stapleton M.S.W., LKacey.S.W. - 06/21/2024 11:06 AM CST [facility]: ATC referral SUBJECTIVE Referral received from Admissions and Transfer Center on 06/21/24, as part of hospital transfer request from [address] (phone: [phone]). OBJECTIVE This patient was accepted for transfer prior to the assessment process. This is a 69 y.o. year old female from [address] [place] [phone]. The patient was admitted to their facility on 06/20/24 for Progressive Parotitis. The physician is requesting transfer. The family is aware of, and agrees with, the request to transfer. Reason for transfer request: higher level of care, patient had an upcoming [place] appointment. Patient is unable to make their [...] Daughter who is her decision maker, Ivy [phone] Anticipated discharge disposition according to referring facility: [...] to the family. Noam Shea, Nedra.S.W. 06/21/2024 [facility] documented in this encounter Plan of Treatment Upcoming Encounters Date Type Department Care Team (Late st Contact Info) Description 09/20/2024 3:00 PM CDT Appointment Department of Neurology in [address] [phone] Carmen Petit APRN, C.NKavyaP., M.S.N. [address] [place] [phone] 09/20/2024 3:45 PM CDT Appointment Department of Radiology, [facility], in [place], [place] [address] [place] [phone] Carmen Petit APRN, Sommer.N.P., M.S.N. [address] [place] [phone] 09/21/2024 9:30 AM CDT Office Visit Department of Neurologic Surgery in [place], [place] [address] [place] [phone] Ashley Watts P.A.-C. [address] [place] [phone] 10/09/2024 9:30 AM CDT Office Visit Department of Otorhinolaryngology in [place], [place] [address] [place] [phone] Montserrat Jacobs M.D. [address] [place] [phone] Scheduled Procedures Name Priority Associated Diagnoses Date/Ti me ARTHROPLASTY TOTAL REVERSE SHOULDER Fracture 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 documented as of this encounter Visit Diagnoses Not on filedocumented in this encounter Additional Health Concerns Assessment Noted Time PHQ-9 Depression Total Score: 5 02/14/20 24 9:00 AM CDT documented as of this encounter Care Teams Executive Team Leader Relationship Specialty Start Date End Date Laly Dickey MPAS, P.A.-C. [address] [place] [phone] PCP - General Internal Medicine 07/28/22 documented as of this encounter
--- OUTSIDE RECORDS SUMMARY | 2024-08-15 14:50 | XMS_ITS | Encounter Summary ---
Author Organization [employer] [facility] Address [address] [place] [address] [address] [place] [address] Care Team Providers Care Pastrycook'S Assistant Name Role Phone Ambrosio Hill MD Primary Care Provider [phone] Ambrosio Hill MD Unavailable Provider, No Attributed RESOURCE Unavailable Unavailable Ambrosio Hill MD Unavailable Ambrosio Hill MD Unavailable Natalie Estrada MD Unavailable [phone] Jakub Barr MD Unavailable [phone] SUCTION DREDGE DUMPING SUPERVISOR-GENERAL NEUROLOGIST Unavailable [phone] Provider, No Attributed RESOURCE Unavailable Unavailable Ambrosio Hill MD Unavailable Provider, No Attributed RESOURCE Unavailable Unavailable Encounter Details Date Type Department Care Team (Late st Contact Info) Description 12/17/2015 Dictated / No Visit [facility] [address] [place] [address] Ambrosio Hill MD [address] [place] [address] Social History Tobacco Use Types [...] Hill MD - 12/17/2015 12:[address] [facility] Patient Report PROVIDER: Ambrosio Hill M.D., [facility] LOCATION OF CARE: DATE OF SERVICE: 12/17/2015 PATIENT: RAJINDER VERMA MR#: [id number] CSN: : [id number] SEX: F HOME: WORK: [facility] DISCHARGE SUMMARY [facility] SITE: [place], [place] DATE OF ADMISSION: 12/03/2015 DATE OF DISCHARGE: 12/17/2015 ADMITTING DIAGNOSIS: Weakness status post total knee arthroplasty. FINAL DIAGNOSIS: Weakness status post total knee arthroplasty. OTHER DIAGNOSES: As listed in the attached note. COMPLICATIONS: None. PROCEDURES: None. [facility] COURSE: Patient was admitted for rehabilitation following bilateral total knee arthroplasty. Her blood pressures were managed during her long term stay and at the time of discharge [...] followups. Ambrosio Hill M.D., Family Medicine cc: [facility] Job ID/Trans ID: [id number] Doc ID: [id number] SITE HEAD SITE HEAD documented in this encounter Plan of Treatment [...] COVID-19 04/23/2020 04/23/2020 05/03/2020 11:5 7 PM SITE HEAD documented as of this encounter Care Teams Pastrycook'S Assistant Relationship Specialty Start Date End Date Ambrosio Hill MD [address] [place] [address] PCP - General Family Medicine 07/06/14 03/04/22 Ambrosio Hill MD [address] [place] [address] PCP - Attributed Provider 01/30/16 04/19/16 Provider, No Attributed, RESOURCE [address] PCP - Attributed Provider 04/20/16 04/21/16 Ambrosio Hill MD [address] [facility] [place] [address] PCP - Attributed Provider 04/22/16 11/21/20 Ambrosio Hill MD [address] [facility] [place] [address] PCP - Attributed Provider 11/22/20 03/23/22 Provider, No Attributed, RESOURCE [address] PCP - Attributed Provider 03/24/22 05/26/22 Ambrosio Hill MD [address] [facility] [place] [address] PCP - Attributed Provider 05/27/22 02/22/24 Provider, No Attributed, RESOURCE [address] PCP - Attributed Provider 02/23/24 Natalie Estrada MD [address] [place] [address] Nephrology (Internal Medicine) 09/18/21 Jakub Barr MD [facility] [place] [address] Orthopedic Surgery 09/18/21 Merary Ware APRN-GENERAL NEUROLOGIST [address] [place] [phone] GENERAL NEUROLOGIST - Oncology 09/18/21 documented as of this encounter
--- OUTSIDE RECORDS SUMMARY | 2024-08-15 14:50 | XMS_ITS | Encounter Summary ---
Author Organization [facility] Address [address] [place] [address] Care Team Providers Care Yeast Washer Name Role Phone Laly Dickey P.A.-C. Primary Care Pro vider Encounter Details Date Type Department Care Team (Latest Contact Info) Description 08/08/2024 9:50 AM CDT - 08/08/2024 11:59 PM CDT Hospital Encounter Department of Laboratory Medicine in [place], [place] 300 [facility] [place] [address] Agustin Granda M.D., Ph.D. [address] [place] [address] Hydrocephalus Normal Pressure (HCC); Preoperative Exam; Chronic [...] 0.6 oz pur e alcohol) [facility] Utilities Answer Date Recorded In the past 12 months has e [employer], gas, oil, or water [employer] threatened to shut off services in your [...] your living situation today? I have a [facility] place to live 06/23/2024 Comments No Sex and Gender Information Value Date Recorded Sex Assigned at Female 03/19/2023 10:10 AM CDT Legal Sex Female 1:31 PM COMMUNITY HEALTH NURSE Gender Identity Female 03/19/2023 10:10 AM CDT [...] PM CDT Appointment Department of Neurology in [address] [phone] Carmen Petit APRN, C.N.P., M.S.N. [address] [place] [phone] 09/20/2024 3:45 PM CDT Appointment Department of Radiology, [facility] in [place], [place] [address] [place] [phone] Carmen Petit APRN, C.N.P., M.S.N. [address] [place] [phone] 09/21/2024 9:30 AM CDT Office Visit Department of Neurologic Surgery in [address] [phone] Ashley Watts P.A.-C. [address] [place] [phone] 10/09/2024 9:30 AM CDT Office Visit Department of Otorhinolaryngology in [address] [phone] Montserrat Jacobs M.D. [address] [place] [phone] Scheduled Procedures Name Priority Associated Diagnoses Date/Ti [...] Result [facility] [address] [place] [address], [place] [facility] in [place] [address] [place] [address] * Type and Screen (with Reflex Antibody ID) (08/08/2024 10:02 AM CDT) ABORh B Pos Not applicable 08/09/2024 8:22 AM CDT ETRM Antibody Screen Negative Negative 08/09/2024 8:35 AM CDT ETRM Type & Screen Expiration 08/11/2024 23:59 08/09/2024 8:22 AM CDT ETRM Testing Location [facility] 08/09/2024 7:30 AM CDT ETRM Blood (Blood, Venous) 08/08/2024 10:02 AM CDT 08/09/2024 7:30 AM CDT Agustin Granda M.D., Ph.D. 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 [address] [place] [address] [place] [phone] PCP - General Internal Medicine 07/28/22 documented as of this encounter
--- OUTSIDE RECORDS SUMMARY | 2024-08-15 14:50 | XMS_ITS | Encounter Summary ---
Author Organization [facility] Address [address] [place] [address] Care Team Providers Care Sole Sewer Hand Name Role Phone Laly Dickey, P.A.-CKavya Primary Care Pro vider Reason for Visit * Reason Comments Med Refill Encounter Details Date Type Department Care Team (Late st Contact Info) Description 06/03/2024 Refill Department of Community Internal Medicine in [place], [place] 300 [place] [address] Laly Dickey MPAS, P.A.-CKavya [address] [place] [address] Med Refill Social History Tobacco Use Types Packs/Day Years Used Date Smoking Tobacco: Former Cigarettes 2 30 0 11/13/1975 - 11/12/2005 Passive Smoke Exposure: Never Smokeless Tobacco: Never Alcohol Use Standard Drinks/Week Comments Not Currently 0 (1 standard drink = 0.6 oz pur e alcohol) [facility] Utilities Answer Date Recorded In the past 12 months has e [employer], gas, oil, or water company threatened to [...] a [facility] place to live 06/23/2024 Comments No Sex and Gender Information Value Date Recorded Sex Assigned at Female 03/19/2023 10:10 AM CDT Legal Sex Female 1:31 PM ENGINEER PROCESS Gender Identity Female 03/19/2023 10:10 AM CDT Sexual Orientation Not on file documented as of this encounter Functional Status * Intimate Partner Violence Question Answer Date of Assessment Author Within the last year, have y ou been humiliated or emotionally abused in other ways by your partner or ex-partner? No 06/23/2024 3:00 PM ENGINEER PROCESS Aguilar Combs M.S.N., R.N. Within the last [...] PM CDT Appointment Department of Neurology in [place], [place] [address] [place] [phone] Carmen Petit APRN, C.N.P., M.S.N. [address] [place] [phone] 09/20/2024 3:45 PM CDT Appointment Department of Radiology, [facility], in [place], [place] [address] [place] [phone] Carmen Petit APRN, C.N.P., M.S.N. [address] [place] [phone] 09/21/2024 9:30 AM CDT Office Visit Department of Neurologic Surgery in [place], [place] [address] [place] [address] Ashley Watts P.A.-C. [address] [place] [phone] 10/09/2024 9:30 AM CDT Office Visit Department of Otorhinolaryngology in [place], [place] [address] [place] [phone] Montserrat Jacobs M.D. [address] [place] [phone] Scheduled Procedures Name Priority Associated Diagnoses Date/Ti me ARTHROPLASTY TOTAL REVERSE SHOULDER Fracture 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 documented as of this encounter Visit Diagnoses Not on filedocumented in this encounter Additional Health Concerns Assessment Noted Time PHQ-9 Depression Total Score: 5 02/14/20 24 9:00 AM CDT documented as of this encounter Care Teams Sole Sewer Hand Relationship Specialty Start Date End Date Laly Dickey MPAS, P.A.-C. [address] [place] [phone] PCP - General Internal Medicine 07/28/22 documented as of this encounter
--- OUTSIDE RECORDS SUMMARY | 2024-08-15 14:50 | XMS_ITS | Encounter Summary ---
Author Organization [facility] Address [address] [place] [address] Care Team Providers Care Control Panel Operator Crude Unit Name Role Phone Laly Dickey P.A.-CKavya Primary Care Pro vider Encounter Details Date Type Department Care Team (Late st Contact Info) Description 07/05/2024 Clinical Communication Department of Community Internal Medicine in [place], [place] 300 [place] [address] Laly Dickey MPAS PKavyaA.-CKavya [address] [place] [address] Social History Tobacco Use Types Packs/Day Years Used Date Smoking Tobacco: Former Cigarettes 2 30 0 11/13/1975 - 11/12/2005 Passive Smoke Exposure: Past Smokeless Tobacco: Never Alcohol Use Standard Drinks/Week Comments Not Currently 0 (1 standard drink = 0.6 oz pur e alcohol) [facility] Utilities Answer Date Recorded In [...] your living situation today? I have a [facility] place to live 06/23/2024 Comments No Sex and Gender Information Value Date Recorded Sex Assigned at Female 03/19/2023 10:10 AM CDT Legal Sex Female 1:31 PM DIE DESIGNER Gender Identity Female 03/19/2023 10:10 AM CDT Sexual Orientation Not on file documented as of this encounter Plan of Treatment Upcoming Encounters Date Type Department Care Team (Late st Contact Info) Description 09/20/2024 3:00 PM CDT Appointment Department of Neurology in [address] [phone] Carmen Petit APRN C.N.P., M.S.N. [address] [place] [phone] 09/20/2024 3:45 PM CDT Appointment Department of Radiology, [facility], in [address] [phone] Carmen Petit APRN, C.N.P., M.S.N. [address] [place] [phone] 09/21/2024 9:30 AM CDT Office Visit Department of Neurologic Surgery in [address] [phone] Ashley Watts P.A.-C. [address] [place] [phone] 10/09/2024 9:30 AM CDT Office Visit Department of Otorhinolaryngology in [address] [phone] Montserrat Jacobs M.D. [address] [place] [phone] Scheduled Procedures Name Priority Associated Diagnoses Date/Ti me ARTHROPLASTY TOTAL REVERSE SHOULDER Fracture 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 documented as of this encounter Visit Diagnoses Not on filedocumented in this encounter Additional Health Concerns Assessment Noted Time PHQ-9 Depression Total Score: 0 07/05/19 25 10:01 AM DIE DESIGNER documented as of this encounter Care Teams Control Panel Operator Crude Unit Relationship Specialty Start Date End Date Laly Dickey MPAS, P.A.-C. [address] [facility] [place] [phone] PCP - General Internal Medicine 07/28/22 documented as of this encounter
--- OUTSIDE RECORDS SUMMARY | 2024-08-15 14:50 | XMS_ITS | Encounter Summary ---
Author Organization [facility] Address [address] [place] [address] Care Team Providers Care Digital Printer Name Role Phone Laly Dickey, P.A.-C. Primary Care Pro vider Reason for Referral * Outpatient (Routine) - Closed Specialty Diagnoses / Procedures Referred By Nemo morales Referred To Contact Community Internal Medicine Laly Dickey MPAS, P.A.-C. 300 [facility] [place] [address] Phone: tel: fax: [facility] Referral ID Status Reason Start Date Expiration Date Visits Re quested Visits Authorized [id number] Closed 07/04/2024 01/03/2026 1 1 ANICAL ENGINEERING DRAFTSPERSON Reason for Visit * Reason Onset Date Comments Communication 07/04/2024 Encounter Details Date Type Department Care Team (Late st Contact Info) Description 07/04/2024 Clinical Communication Department of Community Internal Medicine in [place], [place] 300 [facility] [place] [address] Laly Dickey MPAS, Cristobal.A.-C. 300 [facility] [place] [place] [address] Communication Social History Tobacco Use Types Packs/Day Years Used Date Smoking Tobacco: Former Cigarettes 2 30 0 11/13/1975 - 11/12/2005 Passive Smoke Exposure: Past Smokeless Tobacco: Never Alcohol Use Standard Drinks/Week Comments Not Currently 0 (1 standard drink = 0.6 oz pur e alcohol) [facility] Utilities Answer Date Recorded In the past [...] your living situation today? 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 [address] [place] [phone] 09/20/2024 3:45 PM CDT Appointment Department of Radiology, [facility], in [place], [place] [address] [place] [phone] Carmen Petit APRN, C.N.P., M.S.N. [address] [place] [phone] 09/21/2024 9:30 AM CDT Office Visit Department of Neurologic Surgery in [place], [place] [address] [place] [phone] Ashley Watts P.A.-C. [address] [place] [phone] 10/09/2024 9:30 AM CDT Office Visit Department of Otorhinolaryngology in [place], [place] [address] [place] [address] Montserrat Jacobs M.D. 200 [place] [phone] Scheduled Procedures Name Priority Associated Diagnoses Date/Ti [...] documented as of this encounter Care Teams Digital Printer Relationship Specialty Start Date End Date Laly Dickey MPAS, P.A.-C. [address] [place] [phone] PCP - General Internal Medicine 07/28/22 documented as of this encounter
--- OUTSIDE RECORDS SUMMARY | 2024-08-15 14:50 | XMS_ITS | Encounter Summary ---
Author Organization [facility] Address [address] [place] [address] Care Team Providers Care Lockstitch Front Maker Name Role Phone Laly Dickey P.A.-C. Primary Care Pro vider Encounter Details Date Type Department Care Team (Late st Contact Info) Description 07/03/2024 Clinical Communication Department of Neurologic Surgery in [place], [place] [address] [place] [phone] Brina Rich, RKavyaN. Social History Tobacco Use Types Packs/Day Years Used Date Smoking Tobacco: Former Cigarettes 2 30 0 11/13/1975 - 11/12/2005 Passive Smoke Exposure: Past Smokeless Tobacco: Never Alcohol Use Standard Drinks/Week Comments Not Currently 0 (1 standard drink = 0.6 oz pur e alcohol) [facility] Utilities Answer Date Recorded In the past 12 months has [facility] [employer], gas, oil, or water [employer] threatened to shut off services in your [...] your living situation today? I have a [facility] place to live 06/23/2024 Comments No Sex and Gender Information Value Date Recorded Sex Assigned at Female 03/19/2023 10:10 AM CDT Legal Sex Female 1:31 PM MAORI LIAISON ADVISER Gender Identity Female 03/19/2023 10:10 AM CDT [...] were told she can proceed with her PILATES COORDINATOR shunt surgery with Dr. Granda on Wednesday [...] Silva R.N., CNRN - 08/03/2024 4:18 PM MAORI LIAISON ADVISER SUBJECTIVE CHIEF COMPLAINT / REASON FOR CALL No chief complaint on file. PLAN The following information was provided: I contacted Ivy to get an update on her mom's parotid diagnosis/issues. She reports that this past Tuesday 08/01 she was seen by a provider in a clinic not associated with [facility]. She is wanting to switch providers. Dr. Mcgovern is who she saw and he put in a referral for her to be seen by an ENT team here at [facility] hopefully prior to surgery with Dr. [...] following references were used: nursing clinical judgement I LIAISON ADVISER * Telephone Encounter - Hiral Hill - 07/26/2024 2:35 PM CST The patient's daughter, Ivy Stewart, was transferred into ENT after multiple transfers to different areas around [place]. She ultimately ended up in ENT as one of our residents was on the critical care team in May. Triny is requesting to speak with her mom's care team regarding concerns with swelling and PILATES COORDINATOR shunt placement by Dr. Granda on 08/14/2024. She states after being on antibiotics previously for 10 days,the swelling returned at about day 7. She is concerns of this starting again and the upcoming procedure. If you could please reach out to Triny at [phone] to discuss further and/or assist with directing to the appropriate care team, if required. She is anxious to hear back, today if possible. Thank you. I LIAISON ADVISER I LIAISON ADVISER I LIAISON ADVISER * Telephone Encounter - Brina Rich R.N. - 07/03/2024 12:23 PM MAORI LIAISON ADVISER SUBJECTIVE CHIEF COMPLAINT / REASON FOR CALL [...] following references were used: nursing clinical judgement I LIAISON ADVISER documented in this encounter Plan of Treatment Upcoming Encounters Date Type Department Care Team (Late st Contact Info) Description 09/20/2024 3:00 PM CDT Appointment Department of Neurology in [address] [phone] Carmen Petit APRN, C.N.P., M.S.N. [address] [place] [phone] 09/20/2024 3:45 PM CDT Appointment Department of Radiology, [facility] in [address] [phone] Carmen Petit APRN, Sommer.N.P., M.S.N. [address] [place] [phone] 09/21/2024 9:30 AM CDT Office Visit Department of Neurologic Surgery in [address] [phone] Ashley Watts P.A.-C. [address] [place] [phone] 10/09/2024 9:30 AM CDT Office Visit Department of Otorhinolaryngology in [address] [phone] Montserrat Jacobs M.D. [address] [place] [phone] Scheduled Procedures Name Priority Associated Diagnoses Date/Ti me ARTHROPLASTY TOTAL REVERSE SHOULDER Fracture 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 documented as of this encounter Visit Diagnoses Not on filedocumented in this encounter Additional Health Concerns Assessment Noted Time PHQ-9 Depression Total Score: 5 02/14/20 24 9:00 AM CDT documented as of this encounter Care Teams Lockstitch Front Maker Relationship Specialty Start Date End Date Laly Dickey MPAS, P.A.-C. [address] [place] [phone] PCP - General Internal Medicine 07/28/22 documented as of this encounter
--- OUTSIDE RECORDS SUMMARY | 2024-08-15 14:50 | XMS_ITS | Encounter Summary ---
Author Organization [facility] Address [address] [place] [address] Care Team Providers Care Automatic Embroidery Machine Tender Name Role Phone Laly Dickey P.A.-C. Primary Care Pro vider Reason for Referral * Outpatient (Routine) - Closed Specialty Diagnoses / Procedures Referred By Nemo morales Referred To Contact Otorhinolaryngology Diagnoses Acute Sialoadenitis Walter Mcgovern M.D. [address] [place] [address] Phone: tel: fax: [facility] Referral ID Status Reason Start Date Expiration Date Visits Re quested Visits Authorized [id number] Closed 08/01/2024 01/31/2026 1 1 OPEDIC MECHANIC Encounter Details Date Type Department Care Team (Latest Contact Info) Description 08/01/2024 [facility] [address] [place] [address] Walter Mcgovern M.D. [address] [place] [address] Acute Sialoadenitis (Primary Dx) Social History Tobacco Use Types Packs/Day Years Used Date Smoking Tobacco: Former Cigarettes 2 30 0 11/13/1975 - 11/12/2005 Passive Smoke Exposure: Past Smokeless Tobacco: Never Alcohol Use Standard Drinks/Week Comments Not Currently 0 (1 standard drink = 0.6 oz pur e alcohol) [facility] Utilities Answer Date Recorded In [...] [facility] 06/23/2024 Comments No Sex and Gender Information Value Date Recorded Sex Assigned at Female 03/19/2023 10:10 AM CDT Legal Sex Female 1:31 PM ORTHOPEDIC MECHANIC Gender Identity Female 03/19/2023 10:10 AM CDT Sexual Orientation Not on file documented as of this encounter Plan of Treatment Upcoming Encounters Date Type Department Care Team (Late st Contact Info) Description 09/20/2024 3:00 PM CDT Appointment Department of Neurology in [place], [place] [address] [place] [phone] Carmen Petit APRN, C.N.P., M.S.N. [address] [place] [phone] 09/20/2024 3:45 PM CDT Appointment Department of Radiology, [facility], in [place], [place] [address] [place] [phone] Carmen Petit APRN, C.N.P., M.S.N. [address] [place] [phone] 09/21/2024 9:30 AM CDT Office Visit Department of Neurologic Surgery in [place], [place] [address] [place] [phone] Ashley Watts P.A.-C. [address] [place] [phone] 10/09/2024 9:30 AM CDT Office Visit Department of Otorhinolaryngology in [place], [place] [address] [place] [phone] Montserrat Jacobs M.D. [address] [place] [phone] Scheduled Procedures Name Priority Associated Diagnoses Date/Ti [...] Total Score: 0 07/05/19 25 10:01 AM ORTHOPEDIC MECHANIC documented as of this encounter Care Teams Automatic Embroidery Machine Tender Relationship Specialty Start Date End Date Laly Dickey MPAS, P.A.-C. [address] [place] [phone] PCP - General Internal Medicine 07/28/22 documented as of this encounter
--- OUTSIDE RECORDS SUMMARY | 2024-08-15 14:51 | XMS_ITS | Encounter Summary ---
Author Organization [facility] Address [address] [place] [phone] Care Team Providers Care Slabber Light Name Role Phone Laly Dickey P.A.-C. Primary Care Pro vider Reason for Referral * Outpatient (Routine) - Authorized Specialty Diagnoses / Procedures Referred By Nemo t Referred To Contact Neurological Surgery Diagnoses Hydrocephalus Normal Pressure (HCC) Carmen Petit APRN C.N.P., M.S.N. [address] [place] [phone] Phone: tel: fax: Ashley Watts P.A.-Radha [address] [place] [phone] Phone: tel: fax: Referral ID Status Reason Start Date Expiration Date V isits Requested Visits Authorized [id number] Authorized 08/14/2024 02/13/2026 1 1 * MRI/CAT/PET Scan (Routine) - Authorized Specialty Diagnoses / Procedures Referred By Contac t Referred To Contact Radiology Diagnoses Hydrocephalus Normal Pressure (HCC) Procedures CT Head without IV Contrast Carmen Petit APRN, C.N.P., M.S.N. [address] [place] [phone] Phone: tel: fax: [facility] Referral ID Status Reason Start Date Expiration Date V isits Requested Visits Authorized [id number] Authorized 08/14/2024 11/14/2025 1 1 * Outpatient (Routine) - Authorized Specialty Diagnoses / Procedures Referred By Contac t Referred To Contact Diagnoses Hydrocephalus Normal Pressure (HCC) Procedures Neurology Gait Disorders Laboratory Hydrocephalus Carmen Petit APRN C.N.P., M.S.N. [address] [place] [phone] Phone: tel: fax: [facility] Referral ID Status Reason Start Date Expiration Date V isits Requested Visits Authorized [id number] Authorized 08/14/2024 11/14/2025 1 1 Reason for Visit * Reason Onset Date Comments Post Hospital Follow-up 08/14/2024 Encounter Details Date Type Department Care Team (Latest Contact Info) Description 08/14/2024 Clinical Communication [facility] [address] [place] [phone] Agustin Granda M.D., Ph.D. [address] [place] [phone] Post Hospital Follow-up Social History Tobacco Use Types Packs/Day Years Used Date Smoking Tobacco: Former Cigarettes 2 30 0 11/13/1975 - 11/12/2005 Passive Smoke Exposure: Past Smokeless Tobacco: Never Comments:Quit smoking in 200 3 Alcohol Use Standard Drinks/Week Comments Not Currently 0 (1 standard drink = 0.6 oz pur e alcohol) [facility] Utilities Answer Date Recorded In the past 12 months has [employer], gas, oil, or water [employer] threatened to shut off services in your [...] AM CDT Legal Sex Female 1:31 PM BEARING MAKER Gender Identity Female 03/19/2023 10:10 AM CDT [...] PM CDT Appointment Department of Neurology in [place], [place] 200 [place] [phone] Carmen Petit, [place], C.N.P., M.S.N. 200 [place] [address] 09/20/2024 3:45 PM CDT Appointment Department of Radiology, [facility] in [place], [place] [address] [place] [phone] Carmen Petit APRN, C.N.P., M.S.N. [address] [place] [phone] 09/21/2024 9:30 AM CDT Office Visit Department of Neurologic Surgery in [place], [place] [address] [place] [phone] Ashley Watts P.A.-CKavya [address] [place] [phone] 10/09/2024 9:30 AM CDT Office Visit Department of Otorhinolaryngology in [place], [place] [address] [place] [phone] Montserrat Jacobs M.D. [address] [place] [phone] Scheduled Orders Name Type Priority Associated Diagnoses [...] Total Score: 0 07/05/19 25 10:01 AM BEARING MAKER documented as of this encounter Care Teams Slabber Light Relationship Specialty Start Date End Date Laly Dickey MPAS, P.A.-C. [address] [place] [phone] PCP - General Internal Medicine 07/28/22 documented as of this encounter
--- OUTSIDE RECORDS SUMMARY | 2024-08-15 14:51 | XMS_ITS | Encounter Summary ---
Author Organization [facility] Address [address] [place] [address] Care Team Providers Care Tool And Machine Maintainer Name Role Phone Laly Dickey P.A.-C. Primary [...] Recorded In the past 12 months has [facility] [place], gas, oil, or water [employer] threatened to shut off services in your [...] AM CDT Legal Sex Female 1:31 PM POSTING MACHINE OPERATOR Gender Identity Female 03/19/2023 10:10 AM CDT Sexual Orientation Not on file documented as of this encounter Plan of Treatment Upcoming Encounters Date Type Department Care Team (Late st Contact Info) Description 09/20/2024 3:00 PM CDT Appointment Department of Neurology in [place], [place] [address] [place] [phone] Carmen Petit APRN, C.N.P., M.S.N. [address] [place] [phone] 09/20/2024 3:45 PM CDT Appointment Department of Radiology, [facility] in [place], [place] [address] [place] [phone] Carmen Petit APRN, C.N.P., M.S.N. [address] [place] [phone] 09/21/2024 9:30 AM CDT Office Visit Department of Neurologic Surgery in [place], [place] [address] [place] [phone] Ashley Watts P.A.-C. [address] [place] [phone] 10/09/2024 9:30 AM CDT Office Visit Department of Otorhinolaryngology in [place], [place] [address] [place] [phone] Montserrat Jacobs M.D. [address] [place] [phone] Scheduled Procedures Name Priority Associated Diagnoses Date/Ti [...] Total Score: 0 07/05/19 25 10:01 AM POSTING MACHINE OPERATOR documented as of this encounter Care Teams Tool And Machine Maintainer Relationship Specialty Start Date End Date Laly Dickey MPAS, P.A.-C. [address] [place] [address] [place] [phone] PCP - General Internal Medicine 07/28/22 documented as of this encounter
--- OUTSIDE RECORDS SUMMARY | 2024-08-15 14:51 | XMS_ITS | Encounter Summary ---
Author Organization [facility] Address [address] [place] [address] Care Team Providers Care Track Moving Machine Operator Name Role Phone Laly Dickey P.A.-C. Primary Care Pro vider Reason for Visit * Auth/Cert (Routine) Specialty Diagnoses / Procedures Referred By Nemo morales Referred To Contact Diagnoses Hydrocephalus Normal Pressure (HCC) Hydrocephalus Normal Pressure (HCC) [G91.2]. Procedures ventriculoperitoneal shunt placement. LAPAROSCOPIC EXPLORATION, DIAGNOSTIC. Referral ID Status Reason Start Date Expiration Date Visits Re quested Visits Authorized [id number] 1 1 Encounter Details Date Type Department Care Team (Latest Contact Info) Description 08/14/2024 5:38 AM CDT - 08/15/2024 11:21 AM CDT Hospital Encounter [facility], [facility], [facility], Ninth Floor [address] [place] [phone] Agustin Granda M.D., Ph.D. [address] [place] [phone] Discharge Disposition: Home or Self Care Social [...] the past 12 months has th e [employer], [employer], oil, or water [employer] threatened to shut off services in your [...] your living situation today? I have a [facility] place to live 08/14/2024 Comments No Sex and Gender Information Value Date Recorded Sex Assigned at Female 03/19/2023 10:10 AM CDT Legal Sex Female 1:31 PM MEDIA LIAISON OFFICER Gender Identity Female 03/19/2023 10:10 AM CDT [...] AM CDT DISCHARGE SUMMARY BRIEF OVERVIEW Hospital: [facility] Discharge Provider: Agustin Granda M.D. Primary Team: [facility] Neurological Surgery - Jesus Alberto Primary Care Providers: Laly Dickey MPAS P.AKavya-CKavya (General) [address] [place] [phone] Primary Care Provider Primary Care Provider Other [...] Peraza M.D.Brando Martel M.D.Ballinger, Beth A, M.D. [facility] DISCHARGE DISPOSITION Home or Self Care [1] [...] frequently. If needed, you may take an yydj-npe-xofrvxv medication such as docusate sodium (Colace), senna [...] the wound may need tere further evaluated. Sutures/[place]: The patient's wound has been approximated by [...] contact Agustin Granda service by calling the [facility] Net Making Supervisor at [phone] or his clinical secretary during regular business hours at [phone]. OUTPATIENT FOLLOW UP Scheduled Appointments 09/20/2024 3:00 [...] by Dr. Granda for a right parietal MARINE ENGINE MECHANIC shunt. The intraoperative as well as the [...] and an appointment with Dr. Granda's Physician Sewer Connector in 4 weeks. These appointments have been scheduled and will be given at discharge. 2. If you have had changes in your overall health status, please follow up with your primary care doctor within a couple of weeks of discharge. 3. If you have any questions about an appointment, please call the Neurosurgery Appointment Center at . [facility] You may have outpatient appointments at [facility] that changed during your hospitalization. Referto your [facility] Patient Visit Guide (PVG) for the most current schedule of appointments and detailed instructions of tests/procedures. * Attachments The following attachments cannot be sent through Care Everywhere. * Oxycodone, Rapid Release (By mouth) (Cambodian) documented in this encounter Medications at Time [...] 08/15/2024 6:52 AM CDT Anna Ortega 69F [phone] POD1 s/p right parietal MARINE ENGINE MECHANIC shunt placement Summary: 69F who presented with [...] concerns, please contact Dr. Granda's service at [phone]. * Dunia Rios APRN, C.N.P. - 08/14/2024 [...] breakfast and dinner. OneTouch Verio Reflect Meter [facility] -- -- 03/07/24 -- APPLY 1 EACH [...] Zendejas BCC - 08/14/2024 7:00 AM CDT [facility] Spiritual Care Progress Note Patient: Anna Ortega Age:69 y.o. Location: [facility] Reason(s) for encounter: AM Admit Spiritual [...] requested. Chaplains can be contacted by paging [phone] ([place]iva) or [phone] (Orthodox). documented in this encounter H&P Notes * Aleksandra Peraza M.D. - 08/14/2024 7:03 AM CDT INTERVAL HISTORY AND PHYSICAL PRE-PROCEDURE UPDATE H&P reviewed. The patient was examined and there are no significant changes to the H&P. Beth Devi.D. Source Note - Joseph Pickett Fahad JoseB.S. - 08/10/2024 1:30 PM CDT History and Physical CHIEF COMPLAINT/REASON FOR VISIT: Preop evaluation of laparoscopic access for MARINE ENGINE MECHANIC shunt placement Referring Provider: Agustin Granda M.D.,* SUBJECTIVE Anna Ortega is a 69 y.o. female who presents for evaluation of laparoscopic access for MARINE ENGINE MECHANIC shunt placement by Dr. Granda. 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 Ortega is a 69-year-old female who presented to our clinic today for preop evaluation of laparoscopic access for a MARINE ENGINE MECHANIC shunt. Her surgery was scheduled on 08/15. [...] complications from anesthesia. We discussed that at [facility] there is a full team incorporated into patient care, and the patient acknowledges that others will be involved in their care. The patient understands that the staff surgeon may be participating in another operative procedure during non-critical portions of their procedure,and that a qualified surgeon will be available if needed. We discussed about the group practice of a [facility] General surgery as well. We discussed hospital [...] encounter OR Notes * Op Note - gAustin Granda M.D., Ph.D. - 08/14/2024 9:30 AM CDT Pre-op Diagnosis Hydrocephalus Normal Pressure (HCC) Post-op Diagnosis Hydrocephalus Normal Pressure (HCC) Procedures Placement of right parietal ventriculoperitoneal shunt with antibiotic impregnated catheters and Certas Plus valve with siphonguard setting 6. Intraoperative use of neuronavigation Materials Handler A first helper actively participated and was necessary for one [...] for laparoscopic access to the abdomen. A [employer] antibiotic impregnated catheter was tunneled from the [...] (HCC) Post-op Diagnosis Hydrocephalus Normal Pressure (HCC) Materials Handler A first helper actively participated and was necessary for one [...] by Dr. Granda for a right parietal MARINE ENGINE MECHANIC shunt. The intraoperative as well as the [...] PM CDT Appointment Department of Neurology in [place], [place] [address] [place] [phone] Carmen Petit APRN, C.N.P., M.S.N. [address] [place] [phone] 09/20/2024 3:45 PM CDT Appointment Department of Radiology, [facility], in [place], [place] [address] [place] [address] Carmen Petit APRN, C.N.P., M.S.N. [address] [place] [phone] 09/21/2024 9:30 AM CDT Office Visit Department of Neurologic Surgery in [place], [place] [address] [place] [phone] Ashley Watts P.A.-C. [address] [place] [phone] 10/09/2024 9:30 AM CDT Office Visit Department of Otorhinolaryngology in [place], [place] [address] [place] [phone] Montserrat Jacobs M.D. [address] [place] [phone] Scheduled Procedures Name Priority Associated Diagnoses Date/Ti [...] outpatients) 08/14/2024 12:44 PM CDT DX ADULT MARINE ENGINE MECHANIC SHUNT SERIES RAD - Routine (most inpatients [...] ORDERABLES-MANUAL Marina l Result Performing Organization Address City/[facility]/ZIP Co de Phone Number POC [facility] 200 [place] [address], [facility] PCLX [facility] POC 200 [place] [address] * Glucose, POCT (08/14/2024 9:34 PM CDT) Glucose, POCT, B 127 70 - 140 mg/dL 08/14/2024 9:39 PM CDT PCLX Site Capillary 08/14/2024 9:39 PM CDT PCLX Blood 08/14/2024 9:34 PM CDT 08/14/2024 9:39 PM CDT us Unknown Provider LAB POCT ORDERABLES-MANUAL Marina l Result Performing Organization Address City/[facility]/ZIP Co de Phone Number POC [facility] [address] [place] [address], [facility] PCLX [facility] POC [address] [place] [address] * (ABNORMAL) Glucose, POCT (08/14/2024 4:21 PM CDT) Glucose, POCT, B 177(H) 70 - 140 mg/dL 08/14/2024 4:23 PM CDT PCLX Site Capillary 08/14/2024 4:23 PM CDT PCLX Blood 08/14/2024 4:21 PM CDT 08/14/2024 4:23 PM CDT us Unknown Provider LAB POCT ORDERABLES-MANUAL Marina shanice Result POC [facility] [address] [place] [address], [facility] PCLX [facility] POC [address] [place] [address] * CT Head without IV Contrast (08/14/2024 [...] There is associated post procedural subcutaneous emphysema. Vkxo-el-xrlcqwsn cerebral leukoaraiosis. Moderate generalized cerebral volume loss [...] neck. There is associated post proceduralsubcutaneous emphysema. Wfth-tt-gopolyxn cerebral leukoaraiosis. Moderate generalized cerebralvolume loss with [...] CT PROCEDURES Final Result * DX Adult MARINE ENGINE MECHANIC Shunt Series (08/14/2024 12:24 PM CDT) Anatomical Region Laterality Modality Head, Chest, Abdomen, Neuror adiology RST LOS, Neuroradiology ARZ LOS, Muskuloskeletal FLA LOS N/A Digita l Radiography Impressions 08/14/2024 12:51 PM CDT Right posterior parietal approach Codman Certas plus programmable MARINE ENGINE MECHANIC shunt. Tubing courses along the right neck and hemithorax before terminating within the right upper quadrant of the abdomen. No focal discontinuity. No acute findings within the visualized chest and abdomen. Multiple chronic right rib fractures. Multilevel spondylitic changes throughout the spine. Narrative 08/14/2024 12:51 PM CDT EXAM: DX ADULT MARINE ENGINE MECHANIC SHUNT SERIES Procedure Note Cole Walker D.O. - 08/14/2024 EXAM: DX ADULT MARINE ENGINE MECHANIC SHUNT SERIES IMPRESSION: Right posterior parietal approach Codman Certas plus programmable VPshunt. Tubing courses along the right neck and hemithorax beforeterminating within the right upper quadrant of the abdomen. No focaldiscontinuity. No acute findings within the visualized chest and abdomen. Multiple chronic right ribfractures. Multilevel spondylitic changes throughout the spine. Yvonne Haider M.D. [facility] DIAGNOSTIC IMAGING PROC EDURES Final Result * (ABNORMAL) Glucose, POCT (08/14/2024 11:21 AM CDT) Glucose, POCT, B 163(H) 70 - 140 mg/dL 08/14/2024 11:24 AM CDT PCLX Blood 08/14/2024 11:2 1 AM CDT 08/14/2024 11:24 AM CDT Unknown Provider LAB POCT ORDERABLES-MANUAL Marina l Result POC [facility] [address] [place] [address], [facility] POC [address] [place] [address] * Glucose, POCT (08/14/2024 9:18 AM CDT) Glucose, POCT, B 109 70 - 140 mg/dL 08/14/2024 9:20 AM CDT PCSM Site Artstick 08/14/2024 9:20 AM CDT PCSM Blood 08/14/2024 9:18 AM CDT 08/14/2024 9:20 AM CDT us Unknown Provider LAB POCT ORDERABLES-MANUAL Marina l Result Performing Organization Address City/[facility]/ZIP Co de Phone Number POC [facility] [address] [place] [address], [facility] PCSM [facility] [place] POC [address] [place] [id number] * Glucose, POCT (08/14/2024 6:27 AM CDT) [facility] Glucose, POCT, B 126 70 - 140 mg/dL 08/14/2024 6:44 AM CDT PCLX Site Capillary 08/14/2024 6:44 AM CDT PCLX Blood 08/14/2024 6:27 AM CDT 08/14/2024 6:44 AM CDT us Unknown Provider LAB POCT ORDERABLES-MANUAL Marina l Result Performing Organization Address [facility] Co de Phone Number POC [facility] 200 [place] [address], [facility] PCLX [facility] POC 200 [place] [address] documented in this encounter Visit Diagnoses Not [...] Brigid Gunderson R.N.)1832 (Given - Provider: Brigid Gundreson R.N.) 0151 (Given - Provider: Evan Cruz [...] Total Score: 0 07/05/19 25 10:01 AM MEDIA LIAISON OFFICER documented as of this encounter Care Teams Track Moving Machine Operator Relationship Specialty Start Date End Date Laly Dickey MPAS, P.A.-C. [address] [place] [phone] PCP - General Internal Medicine 07/28/22 documented as of this encounter
--- OUTSIDE RECORDS SUMMARY | 2024-08-15 14:51 | XMS_ITS | Encounter Summary ---
Author Organization [facility] Address [address] [place] [id number] Care Team Providers Care Buffing Wheel Raker Name Role Phone Laly Dickey P.A.-C. Primary Care Pro vider Reason for Visit * Reason Comments Consult * Outpatient (Routine) - Closed Specialty Diagnoses / Procedures Referred By Nemo morales Referred To Contact General Surgery Diagnoses Hydrocephalus Normal Pressure (HCC) Preoperative Exam Agustin Granda M.D., Ph.D. [address] [place] [phone] Phone: tel: fax: [facility] Referral ID Status Reason Start Date Expiration Date V isits Requested Visits Authorized [id number] Closed Specialty Services Required 04/24/2024 10/24/2025 1 1 Encounter Details Date Type Department Care Team (Latest Contact Info) Description 08/10/2024 1:30 PM CDT Comprehensive Visit Division of Trauma Critical Care and General Surgery in [place], [place] [address] [place] [phone] Agustin Granda M.D., Ph.D. [address] [place] [phone] Aaliyah Lazo M.D. [address] [place] [phone] Hydrocephalus Normal Pressure (HCC) (Primary Dx); Preoperative Exam Social History Tobacco Use Types Packs/Day Years Used Date Smoking Tobacco: Former Cigarettes 2 30 0 11/13/1975 - 11/12/2005 Passive Smoke Exposure: Past Smokeless Tobacco: Never Comments:Quit smoking in 200 3 Alcohol Use Standard Drinks/Week Comments Not Currently 0 (1 standard drink = 0.6 oz pur e alcohol) [facility] Utilities Answer Date Recorded In the past 12 months has e [employer], gas, oil, or water company threatened to [...] your living situation today? I have a [facility] place to live 06/23/2024 Comments No Sex and Gender Information Value Date Recorded Sex Assigned at Female 03/19/2023 10:10 AM CDT Legal Sex Female 1:31 PM TOBACCO FLAVORER Gender Identity Female 03/19/2023 10:10 AM CDT Sexual Orientation Not on file documented as of this encounter Consult Notes * Diego Blulard D.O. - 08/10/2024 1:30 PM CDT SUBJECTIVE CHIEF COMPLAINT / REASON FOR VISIT Anna Ortega is a 69 y.o. female presenting in referral from Agustin Granda M.D.,* for consultation in the evaluation of CCU NURSE shunt placement for NPH. HISTORY OF PRESENT ILLNESS is a 69F who presents for evaluation of CCU NURSE shunt placement in the setting of NPH. [...] she is amenable to our portion of CCU NURSE shunt placement. We are grateful to our colleagues in [place] to assist in the care of Mrs. Ortega on Monday 08/14. Risks of the surgery were discussed, and consent signed. Case discussed with Dr. Lazo. Diego Bullard D.O. * Joseph Pickett M.B.BKavyaS. - 08/10/2024 1:30 PM CDT History and Physical CHIEF COMPLAINT/REASON FOR VISIT: Preop evaluation of laparoscopic access for CCU NURSE shunt placement Referring Provider: Agustin Granda M.D.,* SUBJECTIVE Anna Ortega is a 69 y.o. female who presents for evaluation of laparoscopic access for CCU NURSE shunt placement by Dr. Granda. The patient [...] preop evaluation of laparoscopic access for a CCU NURSE shunt. Her surgery was scheduled on 08/15. [...] complications from anesthesia. We discussed that at [facility] there is a full team incorporated into patient care, and the patient acknowledges that others will be involved in their care. The patient understands that the staff surgeon may be participating in another operative procedure during non-critical portions of their procedure,and that a qualified surgeon will be available if needed. We discussed about the group practice of a [facility] General surgery as well. We [...] Patient was seen and evaluated with the [facility] surgical service B senior resident. I agree with his findings, documentation and plan of management. documented in this encounter Plan of Treatment Upcoming Encounters Date Type Department Care Team (Late st Contact Info) Description 09/20/2024 3:00 PM CDT Appointment Department of Neurology in [address] [phone] Carmen Petit APRN, C.N.P., M.S.N. [address] [place] [phone] 09/20/2024 3:45 PM CDT Appointment Department of Radiology, [facility], in [address] [phone] Carmen Petit APRN, C.N.P., M.S.N. [address] [place] [phone] 09/21/2024 9:30 AM CDT Office Visit Department of Neurologic Surgery in [address] [phone] Ashley Watts P.A.-C. [address] [place] [phone] 10/09/2024 9:30 AM CDT Office Visit Department of Otorhinolaryngology in [address] [phone] Montserrat Jacobs M.D. 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 [address] [facility] [place] [phone] PCP - General Internal Medicine 07/28/22 documented as of this encounter
--- OUTSIDE RECORDS SUMMARY | 2024-08-15 14:51 | XMS_ITS | Encounter Summary ---
Author Organization [facility] Address [address] [place] [address] Care Team Providers Care Solar Sales Name Role Phone Laly Dickey P.A.-C. Primary Care Pro vider Reason for Referral * MRI/CAT/PET Scan (Routine) - Closed Specialty Diagnoses / Procedures Referred By Nemo morales Referred To Contact Radiology Diagnoses Hydrocephalus Normal Pressure (HCC) Preoperative Exam Procedures CT Stereotactic Localization Agustin Granda M.D., Ph.D. [address] [place] [address] Phone: tel: fax: [facility] Referral ID Status Reason Start Date Expiration Date Visits Re quested Visits Authorized [id number] Closed 04/24/2024 04/24/2025 1 1 Reason for Visit * Auth/Cert (Routine) Specialty Diagnoses / Procedures Referred By Nemo morales Referred To Contact Diagnoses Hydrocephalus Normal Pressure (HCC) Hydrocephalus Normal Pressure (HCC) [G91.2]. Procedures ventriculoperitoneal shunt placement. LAPAROSCOPIC EXPLORATION, DIAGNOSTIC. Referral ID Status Reason Start Date Expiration Date Visits Re quested Visits Authorized [id number] 1 1 Encounter Details Date Type Department Care Team (Latest Contact Info) Description 08/14/2024 6:59 AM CDT - 08/14/2024 11:59 PM CDT Hospital Encounter Department of Radiology, [facility], in [place], [place] [address] [place] [phone] Agustin Granda M.D., Ph.D. [address] [place] [address] Hydrocephalus Normal Pressure (HCC); Preoperative Exam Discharge Disposition: Home or Self Care Social History Tobacco Use Types Packs/Day Years Used Date Smoking Tobacco: Former Cigarettes 2 30 0 11/13/1975 - 11/12/2005 Passive Smoke Exposure: Past Smokeless Tobacco: Never Comments:Quit smoking in 200 3 Alcohol Use Standard Drinks/Week Comments Not Currently 0 (1 standard drink = 0.6 oz pur e alcohol) [facility] Utilities Answer Date Recorded In the past 12 months has e [employer], gas, oil, or water [facility] threatened to shut off services in your [...] your living situation today? I have a [facility] place to live 08/14/2024 Comments No Sex and Gender Information Value Date Recorded Sex Assigned at Female 03/19/2023 10:10 AM CDT Legal Sex Female 1:31 PM HEATING AND BLENDING SUPERVISOR Gender Identity Female 03/19/2023 10:10 AM [...] PM CDT Appointment Department of Neurology in [place], [place] [address] [place] [phone] Carmen Petit APRN, C.N.P., M.S.N. [address] [place] [phone] 09/20/2024 3:45 PM CDT Appointment Department of Radiology, [facility], in [place], [place] [address] [place] [phone] Carmen Petit APRN, C.N.P., M.S.N. [address] [place] [phone] 09/21/2024 9:30 AM CDT Office Visit Department of Neurologic Surgery in [place], [place] [address] [place] [phone] Ashley Watts P.A.-C. [address] [place] [phone] 10/09/2024 9:30 AM CDT Office Visit Department of Otorhinolaryngology in [address] [phone] Montserrat Jacobs M.D. [address] [place] [phone] Scheduled Procedures Name Priority Associated Diagnoses Date/Ti [...] Total Score: 0 07/05/19 25 10:01 AM HEATING AND BLENDING SUPERVISOR documented as of this encounter Care Teams Solar Sales Relationship Specialty Start Date End Date Laly Dickey MPAS, P.A.-C. [address] [place] [phone] PCP - General Internal Medicine 07/28/22 documented as of this encounter
--- OUTSIDE RECORDS SUMMARY | 2024-08-15 14:51 | XMS_ITS | Encounter Summary ---
Author Organization [facility] Address [address] [place] [address] Care Team Providers Care Criminal Defense Attorney Name Role Phone Laly Dickey P.A.-C. Primary Care Pro vider Reason for Visit * Auth/Cert (Routine) Specialty Diagnoses / Procedures Referred By Nemo morales Referred To Contact Diagnoses Hydrocephalus Normal Pressure (HCC) Hydrocephalus Normal Pressure (HCC) [G91.2]. Procedures ventriculoperitoneal shunt placement. LAPAROSCOPIC EXPLORATION, DIAGNOSTIC. Referral ID Status Reason Start Date Expiration Date Visits Re quested Visits Authorized [id number] 1 1 Encounter Details Date Type Department Care Team ([facility] st Contact Info) Description 08/14/2024 8:17 AM CDT Anesthesia Event RST ROMB MAIN OR [address] [place] [phone] Agatha Chandler M.D. [address] [place] [phone] Imelda Yoon M.D. [address] [place] [phone] Anesthesia Record Procedure Summary Procedure Name Responsible [...] = 0.6 oz pur e alcohol) [facility] Utilities Answer Date Recorded In the past 12 months has e [employer], gas, oil, or water [facility] threatened to shut off services in [...] your living situation today? I have a [facility] place to live 08/14/2024 Comments No Sex and Gender Information Value Date Recorded Sex Assigned at Female 03/19/2023 10:10 AM CDT Legal Sex Female 1:31 PM PIANO TUNER Gender Identity Female 03/19/2023 10:10 AM CDT Sexual Orientation Not on file documented as of this encounter OR Notes * Anesthesia Postprocedure Evaluation - de Alison Brito M.D., M.P.H. - 08/14/2024 10:55 AM CDT Patient: Anna Ortega Procedure Summary Date: 08/14/24 Room / Location: [address] 01 [facility] in [place], [place] Anesthesia Start: 816 Anesthesia Stop: 1045 [...] as planned. Alison Brooks MD, MPH PGY-2 Meat Inspector Notable Events No notable events documented. * [...] ETT location: oral VL device: glide scope [place] scope blade size: 3 Tube size: 7 [...] PM CDT Appointment Department of Neurology in [address] [phone] Carmen Petit APRN, C.NVioleta, M.S.N. [address] [place] [phone] 09/20/2024 3:45 PM CDT Appointment Department of Radiology, [facility] in [address] [phone] Carmen Petit APRN, C.N.P., M.S.N. [address] [place] [phone] 09/21/2024 9:30 AM CDT Office Visit Department of Neurologic Surgery in [address] [phone] Ashley Watts P.A.-C. [address] [place] [phone] 10/09/2024 9:30 AM CDT Office Visit Department of Otorhinolaryngology in [address] [phone] Montserrat Jacobs M.D. [address] [place] [phone] Scheduled Procedures Name Priority Associated Diagnoses Date/Ti co ARTHROPLASTY TOTAL REVERSE SHOULDER Fracture Humerus Distal [...] ETT location: oral VL device: glide scope [place] scope blade size: 3 Tube size: 7 [...] Depression Total Score: 0 07/05/19 10:01 AM PIANO TUNER documented as of this encounter Care Teams Criminal Defense Attorney Relationship Specialty Start Date End Date Laly Dickey MPAS, P.A.-C. [address] [place] [address] NATASHA VARMA [phone] PCP - General Internal Medicine 07/28/22 documented as of this encounter
--- OUTSIDE RECORDS SUMMARY | 2024-08-15 14:51 | XMS_ITS | Encounter Summary ---
Author Organization [facility] Address [address] [place] [address] Care Team Providers Care Drafter Mechanical Name Role Phone Laly Dickey P.A.-C. Primary Care Pro vider Reason for Referral * Outpatient (Routine) - Authorized Specialty Diagnoses / Procedures Referred By Nemo morales Referred To Contact Otorhinolaryngology Montserrat Jacobs M.D. [address] [place] [address] Phone: tel: fax: [facility] Referral ID Status Reason Start Date Expiration Date V isits Requested Visits Authorized [id number] Authorized 08/10/2024 02/09/2026 1 1 Reason for Visit * Reason Comments parotid sialdenitis * Outpatient (Routine) - Closed Specialty Diagnoses / Procedures Referred By Nemo morales Referred To Contact Otorhinolaryngology Diagnoses Acute Sialoadenitis Walter Mcgovern M.D. [address] [place] [address] Phone: tel: fax: [facility] Referral ID Status Reason Start Date Expiration Date Visits Re quested Visits Authorized [id number] Closed 08/01/2024 01/31/2026 1 1 Encounter Details Date Type Department Care Team (Latest Contact Info) Description 08/10/2024 2:30 PM CDT Comprehensive Visit Department of Otorhinolaryngology in [place], [place] [address] [place] [address] Montserrat Jacobs M.D. [address] [place] [phone] Acute Sialoadenitis Social History Tobacco Use Types [...] has e electric, gas, oil, or water [employer] threatened to shut off services in your [...] your living situation today? I have a [facility] place to live 06/23/2024 Comments No Sex and Gender Information Value Date Recorded Sex Assigned at Female 03/19/2023 10:10 AM CDT Legal Sex Female 1:31 PM SENIOR ADMINISTRATIVE ASSOCIATE Gender Identity Female 03/19/2023 10:10 AM CDT [...] sialoendoscopy pending her surgical course after her SHAVING MACHINE OPERATOR shunt placement. - Treatment plan: Increase hydration [...] focus on hydration and conservative measures. A SHAVING MACHINE OPERATOR shunt placement is scheduled for her this coming 08/14/24. Follow-up care and monitoring are planned for both conditions. She should continue with her surgery and we will follow closely for her recurrent parotitis with the plan to pursue sialoendoscopy should her sympto ms not improve with conservative measures HISTORY OF PRESENT ILLNESS: Ms. 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 The patient reportsepisodes of parotid gland swelling associated with severe ear pain. In late May, she experienced severe swelling requiring airlift and hospitalization for five days, followed by multiple courses of antibiotics. She was subsequently hospitalized at [place] for IV antibiotics. The patient notes recurrent swelling when antibiotics are discontinued, despite blood work showing no infection. A recent CT scan with contrast at [place] ER revealed no stones. The patient reports [...] of active infection León Jacobs M.D. [employer] Police [employer] Commander [facility] Dept. of Otorhinolaryngology-Head & Neck Surgery documented in this encounter Plan of Treatment Upcoming Encounters Date Type Department Care Team (Late st Contact Info) Description 09/20/2024 3:00 PM CDT Appointment Department of Neurology in [address] [phone] Carmen Petit APRN, C.NVioleta, M.S.N. [address] [place] [phone] 09/20/2024 3:45 PM CDT Appointment Department of Radiology, [facility], in [place], [place] [address] [place] [phone] Carmen Petit APRN, C.N.Cristobal., M.S.N. [address] [place] [phone] 09/21/2024 9:30 AM CDT Office Visit Department of Neurologic Surgery in [place], [place] [address] [place] [phone] Ashley Watts P.A.-C. [address] [place] [phone] 10/09/2024 9:30 AM CDT Office Visit Department of Otorhinolaryngology in [place], [place] [address] [place] [address] Montserrat Jacobs M.D. [address] [place] [phone] Scheduled Procedures Name Priority Associated Diagnoses Date/Ti [...] Total Score: 0 07/05/19 25 10:01 AM SENIOR ADMINISTRATIVE ASSOCIATE documented as of this encounter Care Teams Drafter Mechanical Relationship Specialty Start Date End Date Laly Dickey MPAS, P.A.-C. [address] [place] [phone] PCP - General Internal Medicine 07/28/22 documented as of this encounter
--- OUTSIDE RECORDS SUMMARY | 2024-08-15 14:51 | XMS_ITS | Encounter Summary ---
Author Organization [facility] Address [address] [place] [address] Care Team Providers Care Furnace Helper Name Role Phone Laly Dickey P.A.-C. Primary Care Pro vider Reason for Visit * Auth/Cert (Routine) Specialty Diagnoses / Procedures Referred By Nemo morales Referred To Contact Diagnoses Hydrocephalus Normal Pressure (HCC) Hydrocephalus Normal Pressure (HCC) [G91.2]. Procedures ventriculoperitoneal shunt placement. LAPAROSCOPIC EXPLORATION, DIAGNOSTIC. Referral ID Status Reason Start Date Expiration Date Visits Re quested Visits Authorized [id number] 1 1 Encounter Details Date Type Department Care Team ([facility] st Contact Info) Description 08/14/2024 7:50 AM CDT - 08/14/2024 10:52 AM CDT Surgery RST ROMB MAIN OR [address] [place] [phone] Agustin Granda M.D., Ph.D. [address] [place] [phone] ventriculoperitoneal shunt placement. Social History Tobacco Use Types Packs/Day Years Used Date Smoking Tobacco: Former Cigarettes 2 30 0 11/13/1975 - 11/12/2005 Passive Smoke Exposure: Past Smokeless Tobacco: Never Comments:Quit smoking in 200 3 Alcohol Use Standard Drinks/Week Comments Not Currently 0 (1 standard drink = 0.6 oz pur e alcohol) [facility] Utilities Answer Date Recorded In the past 12 months has th e electric, gas, oil, or water [employer] threatened to shut off services in your [...] [facility] 08/14/2024 Comments No Sex and Gender Information Value Date Recorded Sex Assigned at Female 03/19/2023 10:10 AM CDT Legal Sex Female 1:31 PM SORT OPERATIONS SUPERVISOR Gender Identity Female 03/19/2023 10:10 AM [...] partner or ex-partner? No 06/23/2024 3:00 PM SORT OPERATIONS SUPERVISOR Rex Combs M.S.N., R.N. documented as of this encounter Discharge Summaries * Aleksandra Peraza M.D. - 08/15/2024 6:53 AM CDT DISCHARGE SUMMARY BRIEF OVERVIEW Hospital: [facility] Discharge Provider: Agustin Granda M.D. Primary Team: [facility] Neurological Surgery - Jesus Alberto Primary Care Providers: Laly Dickey MPAS P.AKavya-CKavya (General) [address] [place] [phone] Primary Care Provider Primary Care Provider Other [...] Peraza M.D.Brando Martel M.D.Ballinger, Beth A, M.D. [facility] DISCHARGE DISPOSITION Home or Self Care [...] frequently. If needed, you may take an hziz-sha-jxnxndf medication such as docusate sodium (Colace), senna [...] contact Agustin Granda service by calling the [facility] Materials Tech at [phone] or his secretary of state during regular business hours at [phone]. OUTPATIENT FOLLOW UP Scheduled Appointments 09/20/2024 3:00 [...] by Dr. Granda for a right parietal IMAGING AIDE shunt. The intraoperative as well as the [...] and an appointment with Dr. Granda's Physician Product Development Consultant in 4 weeks. These appointments have been scheduled and will be given at discharge. 2. If you have had changes in your overall health status, please follow up with your primary care doctor within a couple of weeks of discharge. 3. If you have any questions about an appointment, please call the Neurosurgery Appointment Center at . [facility] You may have outpatient appointments at [facility] that changed during your hospitalization. Referto your [facility] Patient Visit Guide (PVG) for the most current schedule of appointments and detailed instructions of tests/procedures. * Attachments The following attachments cannot be sent through Care Everywhere. * Oxycodone, Rapid Release (By mouth) (Azeri) documented in this encounter Medications at Time [...] 08/15/2024 6:52 AM CDT Anna Ortega 69F [phone] POD1 s/p right parietal IMAGING AIDE shunt placement Summary: 69F who presented with [...] concerns, please contact Dr. Granda's service at [phone]. * Dunia Rios APRN, C.N.P. - 08/14/2024 [...] breakfast and dinner. OneTouch Verio Reflect Meter [facility] -- -- 03/07/24 -- APPLY 1 EACH [...] Zendejas BCC - 08/14/2024 7:00 AM CDT [facility] Spiritual Care Progress Note Patient: Anna Ortega Age:69 y.o. Location: [facility] Reason(s) for encounter: AM Admit Spiritual [...] requested. Chaplains can be contacted by paging [phone] ([place]) or [phone] ([place]). documented in this encounter H&P Notes * Aleksandra Peraza M.D. - 08/14/2024 7:03 AM CDT INTERVAL HISTORY AND PHYSICAL PRE-PROCEDURE UPDATE H&P reviewed. The patient was examined and there are no significant changes to the H&P. Aleksandra Peraza M.D. Source Note - Joseph PickettFahad BledsoeB.S. - 08/10/2024 1:30 PM CDT History and Physical CHIEF COMPLAINT/REASON FOR VISIT: Preop evaluation of laparoscopic access for IMAGING AIDE shunt placement Referring Provider: Agustin Granda M.D.,* SUBJECTIVE Anna Ortega is a 69 y.o. female who presents for evaluation of laparoscopic access for IMAGING AIDE shunt placement by Dr. Granda. 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 Ortega is a 69-year-old female who presented to our clinic today for preop evaluation of laparoscopic access for a IMAGING AIDE shunt. Her surgery was scheduled on 08/15. [...] complications from anesthesia. We discussed that at [facility] there is a full team incorporated into patient care, and the patient acknowledges that others will be involved in their care. The patient understands that the staff surgeon may be participating in another operative procedure during non-critical portions of their procedure,and that a qualified surgeon will be available if needed. We discussed about the group practice of a [facility] General surgery as well. We [...] siphonguard setting 6. Intraoperative use of neuronavigation Executive Administrator A minister assistant actively participated and was necessary for [...] laparoscopic access to the abdomen. A [employer] antibiotic impregnated catheter was tunneled from the [...] (HCC) Post-op Diagnosis Hydrocephalus Normal Pressure (HCC) Executive Administrator A minister assistant actively participated and was necessary for [...] by Dr. Granda for a right parietal IMAGING AIDE shunt. The intraoperative as well as the [...] PM CDT Appointment Department of Neurology in [place], [place] [address] [place] [phone] Carmen Petit APRN, C.N.P., M.S.N. [address] [place] [phone] 09/20/2024 3:45 PM CDT Appointment Department of Radiology, [facility], in [place], [place] [address] [place] [phone] Carmen Petit APRN, C.N.P., M.S.N. [address] [place] [phone] 09/21/2024 9:30 AM CDT Office Visit Department of Neurologic Surgery in [place], [place] [address] [place] [phone] Ashley Watts P.A.-C. [address] [place] [phone] 10/09/2024 9:30 AM CDT Office Visit Department of Otorhinolaryngology in [place], [place] [address] [place] [phone] Montserrat Jacobs M.D. [address] [place] [phone] Scheduled Procedures Name Priority Associated Diagnoses Date/Ti [...] outpatients) 08/14/2024 12:44 PM CDT DX ADULT IMAGING AIDE SHUNT SERIES RAD - Routine (most inpatients [...] ORDERABLES-MANUAL Marina l Result Performing Organization Address City/[facility]/ZIP Co de Phone Number POC [facility] 200 [place] [address], [facility] 200 [place] [address] * Glucose, POCT (08/14/2024 9:34 PM CDT) Glucose, POCT, B 127 70 - 140 mg/dL 08/14/2024 9:39 PM CDT PCLX Site Capillary 08/14/2024 9:39 PM CDT PCLX Blood 08/14/2024 9:34 PM CDT 08/14/2024 9:39 PM CDT us Unknown Provider LAB POCT ORDERABLES-MANUAL Marina l Result Performing Organization Address City/[facility]/ZIP Co de Phone Number POC [facility] [address] [place] [address], [facility] 200 [place] [address] * (ABNORMAL) Glucose, POCT (08/14/2024 4:21 PM CDT) Glucose, POCT, B 177(H) 70 - 140 mg/dL 08/14/2024 4:23 PM CDT PCLX Site Capillary 08/14/2024 4:23 PM CDT PCLX Blood 08/14/2024 4:21 PM CDT 08/14/2024 4:23 PM CDT us Unknown Provider LAB POCT ORDERABLES-MANUAL Marina l Result POC [facility] [address] [place] [address], [facility]CLX [facility] [place] POC [address] [place] [address] * CT Head without IV Contrast (08/14/2024 [...] There is associated post procedural subcutaneous emphysema. Zsmt-yv-ggsxkfla cerebral leukoaraiosis. Moderate generalized cerebral volume loss [...] neck. There is associated post proceduralsubcutaneous emphysema. Deui-ec-nuadqgeh cerebral leukoaraiosis. Moderate generalized cerebralvolume loss with [...] CT PROCEDURES Final Result * DX Adult IMAGING AIDE Shunt Series (08/14/2024 12:24 PM CDT) Anatomical Region Laterality Modality Head, Chest, Abdomen, Neuror adiology RST LOS, Neuroradiology ARZ LOS, Muskuloskeletal FLA LOS N/A Digita l Radiography Impressions 08/14/2024 12:51 PM CDT Right posterior parietal approach [employer] plus programmable IMAGING AIDE shunt. Tubing courses along the right neck and hemithorax before terminating within the right upper quadrant of the abdomen. No focal discontinuity. No acute findings within the visualized chest and abdomen. Multiple chronic right rib fractures. Multilevel spondylitic changes throughout the spine. Narrative 08/14/2024 12:51 PM CDT EXAM: DX ADULT IMAGING AIDE SHUNT SERIES Procedure Note Cole Walker D.O. - 08/14/2024 EXAM: DX ADULT IMAGING AIDE SHUNT SERIES IMPRESSION: Right posterior parietal approach [employer] Certas plus programmable VPshunt. Tubing courses along the right neck and hemithorax beforeterminating within the right upper quadrant of the abdomen. No focaldiscontinuity. No acute findings within the visualized chest and abdomen. Multiple chronic right ribfractures. Multilevel spondylitic changes throughout the spine. Yvonne Haider M.D. [facility] DIAGNO[facility]IC IMAGING PROC EDURES Final Result * (ABNORMAL) Glucose, POCT (08/14/2024 11:21 AM CDT) Glucose, POCT, B 163(H) 70 - 140 mg/dL 08/14/2024 11:24 AM CDT PCLX Blood 08/14/2024 11:2 1 AM CDT 08/14/2024 11:24 AM CDT Unknown Provider LAB POCT ORDERABLES-MANUAL Marina l Result POC [facility] [address] [place] [address], [facility]OC [address] [place] [address] * Glucose, POCT (08/14/2024 9:18 AM CDT) Glucose, POCT, B 109 70 - 140 mg/dL 08/14/2024 9:20 AM CDT PCSM Site Artstick 08/14/2024 9:20 AM CDT PCSM Blood 08/14/2024 9:18 AM CDT 08/14/2024 9:20 AM CDT us Unknown Provider LAB POCT ORDERABLES-MANUAL Marina l Result Performing Organization Address City/[facility]/ZIP Co de Phone Number POC RST [facility] 200 [place] [address], [facility] PCSM [facility] POC [address] [place] [phone] * Glucose, POCT (08/14/2024 6:27 AM CDT) [facility] Glucose, POCT, B 126 70 - 140 mg/dL 08/14/2024 6:44 AM CDT PCLX Site Capillary 08/14/2024 6:44 AM CDT PCLX Blood 08/14/2024 6:27 AM CDT 08/14/2024 6:44 AM CDT us Unknown Provider LAB POCT ORDERABLES-MANUAL Marina l Result Performing Organization Address [facility] Co de Phone Number POC [facility] 200 [place] [address], [facility] 200 [place] [address] documented in this encounter Visit Diagnoses Diagnosis [...] Total Score: 0 07/05/19 25 10:01 AM SORT OPERATIONS SUPERVISOR documented as of this encounter Care Teams Furnace Helper Relationship Specialty Start Date End Date Laly Dickey MPAS, P.A.-C. [address] [place] [phone] PCP - General Internal Medicine 07/28/22 documented as of this encounter
--- OUTSIDE RECORDS SUMMARY | 2024-08-15 14:51 | XMS_ITS | Encounter Summary ---
Author Organization [facility] Address [address] [place] [phone] Care Team Providers Care Customer Service Technician Name Role Phone Laly Dickey P.A.-C. Primary Care Pro vider Reason for Referral * Outpatient (Routine) - Closed Specialty Diagnoses / Procedures Referred By Contac t Referred To Contact Diagnoses Hydrocephalus Normal Pressure (HCC) Procedures Neurological Gait Disorders Laboratory Hydrocephalus Agustin Granda M.D., Ph.D. [address] [place] [phone] Phone: tel: fax: [facility] Referral ID Status Reason Start Date Expiration Date Visits Re quested Visits Authorized [id number] Closed 05/09/2024 05/09/2025 1 1 Reason for Visit * Outpatient (Routine) - Closed Specialty Diagnoses / Procedures Referred By Nemo t Referred To Contact Diagnoses Hydrocephalus Normal Pressure (HCC) Procedures Neurological Gait Disorders Laboratory Hydrocephalus Agustin Granda M.D., Ph.D. [address] [place] [phone] Phone: tel: fax: [facility] Referral ID Status Reason Start Date Expiration Date Visits Re quested Visits Authorized [id number] Closed 05/09/2024 05/09/2025 1 1 Encounter Details Date Type Department Care Team (Latest Contact Info) Description 08/09/2024 1:35 PM CDT - 08/09/2024 3:02 PM CDT Hospital Encounter Department of Neurology in [place], [place] [address] [place] [phone] Agustin Granda M.D., Ph.D. 200 [place] [phone] Ricardo Nayak M.D. [address] [place] [phone] Hydrocephalus Normal Pressure (HCC) Discharge Disposition: Home or Self Care Social History Tobacco Use Types Packs/Day Years Used Date Smoking Tobacco: Former Cigarettes 2 30 0 11/13/1975 - 11/12/2005 Passive Smoke Exposure: Past Smokeless Tobacco: Never Comments:Quit smoking in 200 3 Alcohol Use Standard Drinks/Week Comments Not Currently 0 (1 standard drink = 0.6 oz pur e alcohol) [facility] Utilities Answer Date Recorded In the past 12 months has e [employer], gas, oil, or water [employer] threatened to shut off services in your [...] a [facility] to live 06/23/2024 Comments No Sex and Gender Information Value Date Recorded Sex Assigned at Female 03/19/2023 10:10 AM CDT Legal Sex Female 1:31 PM JOB COST ESTIMATOR Gender Identity Female 03/19/2023 10:10 AM CDT [...] PM CDT Appointment Department of Neurology in [address] [phone] Carmen Petit APRN, C.NPoly., M.S.N. [address] [place] [phone] 09/20/2024 3:45 PM CDT Appointment Department of Radiology, [facility], in [address] [phone] Carmen Petit APRN, C.N.P., M.S.N. [address] [place] [phone] 09/21/2024 9:30 AM CDT Office Visit Department of Neurologic Surgery in [address] [phone] Ashley Watts P.A.-C. [address] [place] [phone] 10/09/2024 9:30 AM CDT Office Visit Department of Otorhinolaryngology in [address] [phone] Montserrat Jacobs M.D. [address] [place] [phone] Scheduled Procedures Name Priority Associated Diagnoses Date/Ti [...] Total Score: 0 07/05/19 25 10:01 AM JOB COST ESTIMATOR documented as of this encounter Care Teams Customer Service Technician Relationship Specialty Start Date End Date Laly Dickey MPAS, P.A.-C. [address] [place], [place] [address] [phone] PCP - General Internal Medicine 07/28/22 documented as of this encounter
[2024-08-15] MEDS: MORPHINE 4 MG/ML INJ IVP ×3 (14:53→21:00)
[2024-08-15] MEDS: ACETAMINOPHEN 325 MG TABLET 650 MG PO (14:54)
--- NOTE | 2024-08-15 15:03 | ED_ITS ---
HPI - Fever General Date Seen: 08/15/24 <Kapil Gray DO - Last Filed: 08/15/24 20:01> Chief Complaint: Fever <Kapil Gray DO - Last Filed: 08/15/24 20:01> Stated Complaint: low blood oxygen level <Kapil Gray DO - Last Filed: 08/15/24 20:01> Time Seen by Provider: 08/15/24 14:48 <Kapil Gray DO - Last Filed: 08/15/24 20:01> Source: family and EMS <Kapil Gray DO - Last Filed: 08/15/24 20:01> Mode of arrival: EMS <Kapil Gray DO - Last Filed: 08/15/24 20:01> Limitations: altered mental status <Kapil Gray DO - Last Filed: 08/15/24 20:01> History of Present Illness HPI Narrative: Patient is a 69-year-old female presenting via EMS for altered mental status, weakness, hypoxia. Her daughter is here with her. She states that the patient was discharged this morning from [facility] after a GARMENT INSPECTOR shunt was placed yesterday for normal pressure hydrocephalus. She states when she was discharged to believe the patient was more out of it than normal and [facility] believed this was due to the oxycodone the patient was taking. Patient was sent home and the daughter noticed the patient seemed much more confused and was having difficulty ambulating. She checked the patient's oxygen and was 69 at home with her home pulse ox she states. The daughter states the patient be like this whenever she has an infection. The daughter states she had the patient take d eep breaths until she got her back up to 90%. When EMS arrived they stated she was satting 88% on room air she was also tachycardic for them but blood pressure was within normal limits. My speak to the patient she is unsure were she is and does not know how she got here. Her daughter states the of the patient does have some baseline confusion that is very abnormal for her. She states the patient seems much more more sleepy than normal. Patient is not complaining about any pain at this time. Fever was not checked at home. <Kapil Gray DO - Last Filed: 08/15/24 20:01> Related Data Home Medications: Home Medications ?Medication ?Instructions ?Recorded ?Confirmed albuterol sulfate 90 mcg/actuation 2 puff inhalation Q4H PRN 10/10/23 08/11/24 aerosol inhaler amitriptyline 50 mg tablet 150 mg PO HS 10/10/23 08/11/24 aspirin 81 mg tablet,delayed 81 mg PO HS 10/10/23 08/11/24 release atorvastatin 80 mg tablet 80 mg PO DAILY 10/10/23 08/11/24 diclofenac sodium 1 % topical gel 4 g topical QID PRN 10/10/23 08/11/24 ezetimibe 10 mg tablet 10 mg PO DAILY 10/10/23 08/11/24 gabapentin 300 mg capsule 300 mg PO HS 10/10/23 08/11/24 multivitamin with minerals 1 cap PO DAILY 10/10/23 08/11/24 omeprazole 40 mg capsule,delayed 40 mg PO BID 10/10/23 08/11/24 release tiotropium bromide 2.5 2 inh inhalation Q24H 10/10/23 08/11/24 mcg/actuation mist for inhalation (Spiriva Respimat) torsemide 20 mg tablet 80 mg PO DAILY 10/10/23 08/11/24 venlafaxine 150 mg 150 mg PO DAILY 10/10/23 08/11/24 capsule,extended release 24 hr losartan 50 mg tablet 50 mg PO DAILY 10/11/23 08/11/24 blood sugar diagnostic (OneTouch #10 ea 08/10/24 08/10/24 Verio test strips) blood-glucose meter (OneTouch #1 ea 08/10/24 08/10/24 Verio Reflect Meter) semaglutide 2 mg/dose (8 mg/3 mL) 2 mg subcut 08/10/24 08/10/24 subcutaneous pen injector (Ozempic) Previous Rx's ?Medication ?Instructions ?Recorded tramadol 50 mg tablet 50 mg PO BID PRN pain #60 tabs 08/11/24 <Kapil Gray, DO - Last Filed: 08/15/24 20:01> Allergies/Adverse Reactions: Allergies Allergy/AdvReac Type Severity Reaction Status Date / Time adhesive tape Allergy Intermediate Hives Verified 08/11/24 08:54 Penicillins Allergy Intermediate Hives Verified 08/11/24 08:54 metformin AdvReac Unknown GI Verified 08/11/24 08:54 Intolerance <Kapil Gray DO - Last Filed: 08/15/24 20:01> Review of Systems Status of ROS Reports: unobtainable due to mental status <Kapil Gray DO - Last Filed: 08/15/24 20:01> [facility] Medical History: Medical History Comminuted right humeral fracture with nonunion (2019) ?S42.351K - Displaced comminuted fracture of shaft of humerus, right arm, subsequent encounter for fracture with nonunion (ICD-10) Venous insufficiency ?I87.2 - Venous insufficiency (chronic) (peripheral) (ICD-10) Hammertoes of both feet (05/22/20) ?M20.41 - Other hammer toe(s) (acquired), right foot (ICD-10) ?M20.42 - Other hammer toe(s) (acquired), left foot (ICD-10) Depression with anxiety (03/06/14) ?F41.8 - Other specified anxiety disorders (ICD-10) Migraine headache ?G43.909 - Migraine, unspecified, not intractable, without status migrainosus (ICD-10) Insomnia ?G47.00 - Insomnia, unspecified (ICD-10) Chronic bilateral low back pain without sciatica (09/11/15) ?M54.50 - Low back pain, unspecified (ICD-10) ?G89.29 - Other chronic pain (ICD-10) History of adenomatous polyp of colon (09/30/15) ?Z86.0101 - Personal history of adenomatous and serrated colon polyps (ICD- 10) Diabetic peripheral neuropathy (08/08/14) ?E11.42 - Type 2 diabetes mellitus with diabetic polyneuropathy (ICD-10) Chronic diastolic heart failure (07/06/14) ?I50.32 - Chronic diastolic (congestive) heart failure (ICD-10) Mixed hyperlipidemia ?E78.2 - Mixed hyperlipidemia (ICD-10) Primary hypertension ?I10 - Essential (primary) hypertension (ICD-10) Stage 3b chronic kidney disease (01/15/21) ?N18.32 - Chronic kidney disease, stage 3b (ICD-10) Exogenous obesity ?E66.09 - Other obesity due to excess calories (ICD-10) Type 2 diabetes mellitus, without long-term current use of insulin ?E11.9 - Type 2 diabetes mellitus without complications (ICD-10) Normal pressure hydrocephalus ?G91.2 - (Idiopathic) normal pressure hydrocephalus (ICD-10) Anxiety ?F41.9 - Anxiety disorder, unspecified (ICD-10) Gastroesophageal reflux ?K21.9 - Gastro-esophageal reflux disease without esophagitis (ICD-10) Obstructive sleep apnea ?G47.33 - Obstructive sleep apnea (adult) (pediatric) (ICD-10) Pulmonary nodule (10/10/23) ?R91.1 - Solitary pulmonary nodule (ICD-10) Chronic renal failure, stage 3b ?N18.32 - Chronic kidney disease, stage 3b (ICD-10) COPD (chronic obstructive pulmonary disease) ?J44.9 - Chronic obstructive pulmonary disease, unspecified (ICD-10) <Kapil Gray DO - Last Filed: 08/15/24 20:01> Surgical History: Surgical History History of elbow surgery ?Z98.890 - Other specified postprocedural states (ICD-10) History of bilateral carpal tunnel release ?Z98.890 - Other specified postprocedural states (ICD-10) History of thyroid surgery ?Z98.890 - Other specified postprocedural states (ICD-10) History of knee surgery ?Z98.890 - Other specified postprocedural states (ICD-10) History of oophorectomy History of section ?Z98.891 - History of uterine scar from previous surgery (ICD-10) History of appendectomy ?Z90.49 - Acquired absence of other specified parts of digestive tract (ICD- 10) Hx of shoulder surgery ?Z98.890 - Other specified postprocedural states (ICD-10) History of parathyroidectomy ?Z98.890 - Other specified postprocedural states (ICD-10) ?Z90.89 - Acquired absence of other organs (ICD-10) <Kapil Gray DO - Last Filed: 08/15/24 20:01> Family History: Family History Brother Diabetes Hx of CABG Sister Diabetes Father Lung cancer Prostate cancer Mother Lung cancer Heart disease <Kapil Gray DO - Last Filed: 08/15/24 20:01> Social History: Social History Narrative: , two kids, lives with her brother, former smoker, no EtOH, full code, daughter is POA What is your current living situation?: I presently have a place to live Problems where you live: no known problems Problems where you live details: N/A In the past 12 months, utilities in danger of being shut off: no In past 12 months, lack of transportation kept you from medical appts, meetings, work, or getting things needed for daily living: no In the past 12 mos, have been you worried that your food would run out before you had money to buy more?: never true In the past 12 mos, the food you bought just didn't last and you didn't have money to buy more?: never true Highest level of school completed/degree received: 12th grade, no diploma Smoking Status: Former smoker What tobacco products do you use: cigarettes Smoking quit date/years: >15 years ago Do you use any of these nicotine containing products: None How often do you have a drink containing alcohol: never How often do you have six or more drinks on one occasion: Never AUDIT-C Alcohol total score: 0 Non-prescribed substance use: denies use Caffeine: Yes How often does anyone, including family, friends and others, physically hurt you : never How often does anyone, including family, friends and others, insult or talk down to you: never How often does anyone, including family, friends and others, threaten you with harm: never How often does anyone, including family, friends and others, scream or curse at you: never service: No <Kapil Gray DO - Last Filed: 08/15/24 20:01> Exam Narrative Exam Narrative: Const: Well-nourished, Well-developed, in moderate distress Eyes: PERRL, no conjunctival injection, and symmetrical lids HENT: Atraumatic external nose and ears. Moist mucous membranes. Neck: Symmetric, trachea midline, No thyromegaly. CVS: Tachycardia, No murmurs or gallops. Peripheral pulses 2+ and equal in all extremities RESP: Unlabored respiratory effort. Clear to auscultation bilaterally. GI: Nontender/Nondistended, No rebound or guarding. MSK:Extremities w/o deformity, Normal Active ROM Skin: Warm, Dry. No rashes or lesions. Neuro: Normal Muscle tone, No focal neurological deficits. Psych: Awake, Alert but sleepy, & Oriented to self only. <Kapil Gray, DO - Last Filed: 08/15/24 20:01> Const Vital Signs, click to edit/add: Vital Signs - 24 hr 08/15/24 14:13 08/15/24 14:15 08/15/24 14:18 Temperature Pulse Rate 112 H 109 H 108 H Pulse Rate [Pulse Oximeter] Respiratory Rate Blood Pressure 149/64 H Blood Pressure [Right Upper Arm] Pulse Oximetry 89 90 93 Oxygen Delivery Method Oxygen Flow Rate 08/15/24 14:21 08/15/24 14:30 08/15/24 14:33 Temperature 103.5 F H 102.4 F H Pulse Rate 106 H 110 H Pulse Rate [Pulse Oximeter] 106 H Respiratory Rate 22 25 H 17 Blood Pressure 129/77 Blood Pressure [Right Upper Arm] 149/64 H Pulse Oximetry 88 92 91 Oxygen Delivery Method Room Air Nasal Cannula Oxygen Flow Rate 2 08/15/24 14:34 08/15/24 14:45 08/15/24 14:47 Temperature Pulse Rate 108 H 108 H 106 H Pulse Rate [Pulse Oximeter] Respiratory Rate 9 L 25 H 22 Blood Pressure 133/70 Blood Pressure [Right Upper Arm] Pulse Oximetry 91 92 91 Oxygen Delivery Method Nasal Cannula Oxygen Flow Rate 2 08/15/24 15:54 08/15/24 15:55 08/15/24 16:00 Temperature Pulse Rate 104 H 104 H 105 H Pulse Rate [Pulse Oximeter] Respiratory Rate 18 Blood Pressure 128/82 Blood Pressure [Right Upper Arm] Pulse Oximetry 90 91 91 Oxygen Delivery Method Nasal Cannula Nasal Cannula Oxygen Flow Rate 2 2 08/15/24 16:05 08/15/24 16:06 08/15/24 16:20 Temperature Pulse Rate 104 H 103 H Pulse Rate [Pulse Oximeter] Respiratory Rate Blood Pressure Blood Pressure [Right Upper Arm] Pulse Oximetry 91 91 90 Oxygen Delivery Method Nasal Cannula Nasal Cannula Oxygen Flow Rate 2 1 08/15/24 16:57 08/15/24 16:59 08/15/24 17:00 Temperature 98.5 F Pulse Rate 104 H 102 H Pulse Rate [Pulse Oximeter] Respiratory Rate 25 H 16 14 Blood Pressure 114/67 Blood Pressure [Right Upper Arm] Pulse Oximetry 92 92 Oxygen Delivery Method Nasal Cannula Oxygen Flow Rate 2 08/15/24 17:15 08/15/24 17:30 08/15/24 17:45 Temperature Pulse Rate 103 H 100 100 Pulse Rate [Pulse Oximeter] Respiratory Rate 10 L 14 13 Blood Pressure Blood Pressure [Right Upper Arm] Pulse Oximetry 91 92 90 Oxygen Delivery Method Oxygen Flow Rate 08/15/24 18:00 08/15/24 18:15 08/15/24 18:21 Temperature Pulse Rate 106 H 101 H 99 Pulse Rate [Pulse Oximeter] Respiratory Rate 12 12 13 Blood Pressure 111/66 Blood Pressure [Right Upper Arm] Pulse Oximetry 90 91 93 Oxygen Delivery Method Nasal Cannula Oxygen Flow Rate 2 08/15/24 18:22 08/15/24 18:28 08/15/24 18:30 Temperature Pulse Rate 99 101 H 101 H Pulse Rate [Pulse Oximeter] Respiratory Rate 13 12 Blood Pressure 123/68 Blood Pressure [Right Upper Arm] Pulse Oximetry 91 89 91 Oxygen Delivery Method Nasal Cannula Oxygen Flow Rate 2 08/15/24 18:32 08/15/24 18:45 08/15/24 18:47 Temperature Pulse Rate 100 100 99 Pulse Rate [Pulse Oximeter] Respiratory Rate 12 11 L 10 L Blood Pressure 117/63 114/61 Blood Pressure [Right Upper Arm] Pulse Oximetry 91 93 91 Oxygen Delivery Method Nasal Cannula Oxygen Flow Rate 2 08/15/24 19:00 08/15/24 19:02 08/15/24 19:15 Temperature Pulse Rate 99 98 98 Pulse Rate [Pulse Oximeter] Respiratory Rate 13 17 11 L Blood Pressure 115/66 Blood Pressure [Right Upper Arm] Pulse Oximetry 89 91 92 Oxygen Delivery Method Oxygen Flow Rate 08/15/24 19:17 08/15/24 19:18 08/15/24 19:30 Temperature Pulse Rate 100 98 99 Pulse Rate [Pulse Oximeter] Respiratory Rate 23 22 32 H Blood Pressure 128/78 Blood Pressure [Right Upper Arm] Pulse Oximetry 92 92 90 Oxygen Delivery Method Oxygen Flow Rate 08/15/24 19:32 08/15/24 19:33 08/15/24 20:02 Temperature Pulse Rate 99 97 99 Pulse Rate [Pulse Oximeter] Respiratory Rate 18 13 Blood Pressure 129/75 Blood Pressure [Right Upper Arm] Pulse Oximetry 93 92 93 Oxygen Delivery Method Nasal Cannula Oxygen Flow Rate 2 08/15/24 20:03 08/15/24 20:15 08/15/24 20:17 Temperature Pulse Rate 97 95 94 Pulse Rate [Pulse Oximeter] Respiratory Rate 14 15 Blood Pressure 120/75 120/61 Blood Pressure [Right Upper Arm] Pulse Oximetry 92 92 92 Oxygen Delivery Method Nasal Cannula Oxygen Flow Rate 2 08/15/24 20:30 08/15/24 20:32 Temperature Pulse Rate 95 95 Pulse Rate [Pulse Oximeter] Respiratory Rate 15 16 Blood Pressure 132/72 Blood Pressure [Right Upper Arm] Pulse Oximetry 92 91 Oxygen Delivery Method Oxygen Flow Rate <Kapil Gray, DO - Last Filed: 08/15/24 20:01> Vital Signs - 24 hr 08/15/24 14:13 08/15/24 14:15 08/15/24 14:18 Temperature Pulse Rate 112 H 109 H 108 H Pulse Rate [Pulse Oximeter] Respiratory Rate Blood Pressure 149/64 H Blood Pressure [Right Upper Arm] Pulse Oximetry 89 90 93 Oxygen Delivery Method Oxygen Flow Rate 08/15/24 14:21 08/15/24 14:30 08/15/24 14:33 Temperature 103.5 F H 102.4 F H Pulse Rate 106 H 110 H Pulse Rate [Pulse Oximeter] 106 H Respiratory Rate 22 25 H 17 Blood Pressure 129/77 Blood Pressure [Right Upper Arm] 149/64 H Pulse Oximetry 88 92 91 Oxygen Delivery Method Room Air Nasal Cannula Oxygen Flow Rate 2 08/15/24 14:34 08/15/24 14:45 08/15/24 14:47 Temperature Pulse Rate 108 H 108 H 106 H Pulse Rate [Pulse Oximeter] Respiratory Rate 9 L 25 H 22 Blood Pressure 133/70 Blood Pressure [Right Upper Arm] Pulse Oximetry 91 92 91 Oxygen Delivery Method Nasal Cannula Oxygen Flow Rate 2 08/15/24 15:54 08/15/24 15:55 08/15/24 16:00 Temperature Pulse Rate 104 H 104 H 105 H Pulse Rate [Pulse Oximeter] Respiratory Rate 18 Blood Pressure 128/82 Blood Pressure [Right Upper Arm] Pulse Oximetry 90 91 91 Oxygen Delivery Method Nasal Cannula Nasal Cannula Oxygen Flow Rate 2 2 08/15/24 16:05 08/15/24 16:06 08/15/24 16:20 Temperature Pulse Rate 104 H 103 H Pulse Rate [Pulse Oximeter] Respiratory Rate Blood Pressure Blood Pressure [Right Upper Arm] Pulse Oximetry 91 91 90 Oxygen Delivery Method Nasal Cannula Nasal Cannula Oxygen Flow Rate 2 1 08/15/24 16:57 08/15/24 16:59 08/15/24 17:00 Temperature 98.5 F Pulse Rate 104 H 102 H Pulse Rate [Pulse Oximeter] Respiratory Rate 25 H 16 14 Blood Pressure 114/67 Blood Pressure [Right Upper Arm] Pulse Oximetry 92 92 Oxygen Delivery Method Nasal Cannula Oxygen Flow Rate 2 08/15/24 17:15 08/15/24 17:30 08/15/24 17:45 Temperature Pulse Rate 103 H 100 100 Pulse Rate [Pulse Oximeter] Respiratory Rate 10 L 14 13 Blood Pressure Blood Pressure [Right Upper Arm] Pulse Oximetry 91 92 90 Oxygen Delivery Method Oxygen Flow Rate 08/15/24 18:00 08/15/24 18:15 08/15/24 18:21 Temperature Pulse Rate 106 H 101 H 99 Pulse Rate [Pulse Oximeter] Respiratory Rate 12 12 13 Blood Pressure 111/66 Blood Pressure [Right Upper Arm] Pulse Oximetry 90 91 93 Oxygen Delivery Method Nasal Cannula Oxygen Flow Rate 2 08/15/24 18:22 08/15/24 18:28 08/15/24 18:30 Temperature Pulse Rate 99 101 H 101 H Pulse Rate [Pulse Oximeter] Respiratory Rate 13 12 Blood Pressure 123/68 Blood Pressure [Right Upper Arm] Pulse Oximetry 91 89 91 Oxygen Delivery Method Nasal Cannula Oxygen Flow Rate 2 08/15/24 18:32 08/15/24 18:45 08/15/24 18:47 Temperature Pulse Rate 100 100 99 Pulse Rate [Pulse Oximeter] Respiratory Rate 12 11 L 10 L Blood Pressure 117/63 114/61 Blood Pressure [Right Upper Arm] Pulse Oximetry 91 93 91 Oxygen Delivery Method Nasal Cannula Oxygen Flow Rate 2 08/15/24 19:00 08/15/24 19:02 08/15/24 19:15 Temperature Pulse Rate 99 98 98 Pulse Rate [Pulse Oximeter] Respiratory Rate 13 17 11 L Blood Pressure 115/66 Blood Pressure [Right Upper Arm] Pulse Oximetry 89 91 92 Oxygen Delivery Method Oxygen Flow Rate 08/15/24 19:17 08/15/24 19:18 08/15/24 19:30 Temperature Pulse Rate 100 98 99 Pulse Rate [Pulse Oximeter] Respiratory Rate 23 22 32 H Blood Pressure 128/78 Blood Pressure [Right Upper Arm] Pulse Oximetry 92 92 90 Oxygen Delivery Method Oxygen Flow Rate 08/15/24 19:32 08/15/24 19:33 08/15/24 20:02 Temperature Pulse Rate 99 97 99 Pulse Rate [Pulse Oximeter] Respiratory Rate 18 13 Blood Pressure 129/75 Blood Pressure [Right Upper Arm] Pulse Oximetry 93 92 93 Oxygen Delivery Method Nasal Cannula Oxygen Flow Rate 2 08/15/24 20:03 08/15/24 20:15 08/15/24 20:17 Temperature Pulse Rate 97 95 94 Pulse Rate [Pulse Oximeter] Respiratory Rate 14 15 Blood Pressure 120/75 120/61 Blood Pressure [Right Upper Arm] Pulse Oximetry 92 92 92 Oxygen Delivery Method Nasal Cannula Oxygen Flow Rate 2 08/15/24 20:30 08/15/24 20:32 Temperature Pulse Rate 95 95 Pulse Rate [Pulse Oximeter] Respiratory Rate 15 16 Blood Pressure 132/72 Blood Pressure [Right Upper Arm] Pulse Oximetry 92 91 Oxygen Delivery Method Oxygen Flow Rate <Carmen Jasmine MD - Last Filed: 08/15/24 21:07> Course Vital Signs Vital signs: Initial Vital Signs Pulse Rate 112 H 08/15/24 14:13 Pulse Oximetry 89 08/15/24 14:13 Vital Signs Pulse Rate 112 H 08/15/24 14:13 Pulse Oximetry 89 08/15/24 14:13 Temperature 98.5 F 08/15/24 16:59 Pulse Rate 95 08/15/24 20:32 Respiratory Rate 16 08/15/24 20:32 Blood Pressure 132/72 08/15/24 20:32 Pulse Oximetry 91 08/15/24 20:32 Oxygen Delivery Method Nasal Cannula 08/15/24 20:17 Oxygen Flow Rate 2 08/15/24 20:17 <Kapil Gray DO - Last Filed: 08/15/24 20:01> Initial Vital Signs Pulse Rate 112 H 08/15/24 14:13 Pulse Oximetry 89 08/15/24 14:13 Vital Signs Pulse Rate 112 H 08/15/24 14:13 Pulse Oximetry 89 08/15/24 14:13 Temperature 98.5 F 08/15/24 16:59 Pulse Rate 95 08/15/24 20:32 Respiratory Rate 16 08/15/24 20:32 Blood Pressure 132/72 08/15/24 20:32 Pulse Oximetry 91 08/15/24 20:32 Oxygen Delivery Method Nasal Cannula 08/15/24 20:17 Oxygen Flow Rate 2 08/15/24 20:17 <Carmen Jasmine MD - Last Filed: 08/15/24 21:07> Medications Administered Medications: Generic Name Dose Route Start Last Admin Trade Name Freq PRN Reason Stop Dose Admin Morphine Sulfate 4 mg 08/15/24 20:52 08/15/24 21:00 Morphine 4 Mg/Ml Inj IVP 08/15/24 20:53 4 mg ONCE ONE Administration Discontinued Medications Generic Name Dose Route Start Last Admin Trade Name Freq PRN Reason Stop Dose Admin Acetaminophen 650 mg 08/15/24 14:48 08/15/24 14:54 Acetaminophen 325 Mg Tablet PO 08/15/24 14:49 650 mg ONCE ONE Administration Sodium Chloride 1,000 mls @ 1,000 mls/hr 08/15/24 14:30 08/15/24 17:00 0.9 % Sodium Chloride 1000 Ml IV 08/15/24 15:29 Infused .Q1H FERMÍN Infusion Cefepime HCl 2 gm/ Sodium 100 mls @ 200 mls/hr 08/15/24 16:21 08/15/24 18:05 Chloride IVPB 08/15/24 16:22 Infused ONCE ONE Infusion Sodium Chloride 1,000 mls @ 1,000 mls/hr 08/15/24 17:30 08/15/24 19:13 0.9 % Sodium Chloride 1000 Ml IV 08/15/24 18:29 Infused .Q1H FERMÍN Infusion Morphine Sulfate 4 mg 08/15/24 14:48 08/15/24 14:53 Morphine 4 Mg/Ml Inj IVP 08/15/24 14:49 4 mg ONCE ONE Administration Morphine Sulfate 4 mg 08/15/24 17:41 08/15/24 18:22 Morphine 4 Mg/Ml Inj IVP 08/15/24 17:42 4 mg ONCE ONE Administration <Kapil Gray DO - Last Filed: 08/15/24 20:01> Generic Name Dose Route Start Last Admin Trade Name Freq PRN Reason Stop Dose Admin Morphine Sulfate 4 mg 08/15/24 20:52 08/15/24 21:00 Morphine 4 Mg/Ml Inj IVP 08/15/24 20:53 4 mg ONCE ONE Administration Discontinued Medications Generic Name Dose Route Start Last Admin Trade Name Freq PRN Reason Stop Dose Admin Acetaminophen 650 mg 08/15/24 14:48 08/15/24 14:54 Acetaminophen 325 Mg Tablet PO 08/15/24 14:49 650 mg ONCE ONE Administration Sodium Chloride 1,000 mls @ 1,000 mls/hr 08/15/24 14:30 08/15/24 17:00 0.9 % Sodium Chloride 1000 Ml IV 08/15/24 15:29 Infused .Q1H FERMÍN Infusion Cefepime HCl 2 gm/ Sodium 100 mls @ 200 mls/hr 08/15/24 16:21 08/15/24 18:05 Chloride IVPB 08/15/24 16:22 Infused ONCE ONE Infusion Sodium Chloride 1,000 mls @ 1,000 mls/hr 08/15/24 17:30 08/15/24 19:13 0.9 % Sodium Chloride 1000 Ml IV 08/15/24 18:29 Infused .Q1H FERMÍN Infusion Morphine Sulfate 4 mg 08/15/24 14:48 08/15/24 14:53 Morphine 4 Mg/Ml Inj IVP 08/15/24 14:49 4 mg ONCE ONE Administration Morphine Sulfate 4 mg 08/15/24 17:41 08/15/24 18:22 Morphine 4 Mg/Ml Inj IVP 08/15/24 17:42 4 mg ONCE ONE Administration <Carmen Jasmine MD - Last Filed: 08/15/24 21:07> MDM - Fever MDM Narrative Medical decision making narrative: Patient is 69-year-old female presenting to emergency department for fevers and altered mental status with hypoxia. Considering her recent GARMENT INSPECTOR shunt there is some concern for an infection. Will do a broad workup including septic workup with lactate, blood cultures, CBC, CMP, EKG, troponin, COVID/flu/RSV. Will start with a L of fluids. Also do broad imaging including CT scan of her head and chest and would do a shunt series to make sure the shunt is functioning appropriately. Tylenol given for her fever. Morphine given for pain. I was able to get hold of neurosurgery about starting her on broad-spectrum antibiotics and if that would affect of possible shunt tap. They state is unlikely she developed a shunt infection this quickly after the procedure and do recommend starting her on antibiotics. Will order cefepime. Her lab work returned with a white count of 15.57 that neutrophil predominant. Rest of lab work shows no acute concerning abnormalities. Urinalysis shows no signs of a UTI. CT scan head and shunt series shows that the shunt appears appropriately positioned with no abnormalities. Cannot definitively say if the ventricular size is having changed. CT scan of the chest shows possible pneumonia verses aspiration. Considering the white counts elevated and the fever this is more likely to be pneumonia. Cefepime should adequately cover. I did speak to our hospitalist and they do not feel comfortable keeping her here due to the recent GARMENT INSPECTOR shunt procedure. Of note patient's mentation has improved significantly after her fever came down. She now appears to be close to her baseline. She still satting 91% on 2 L. Considering she does have COPD this is a reasonable level keep her at. Did give her another clear fluids but hesitant to give the full 30 PERCed heel of sepsis fluids due to her history of CHF and the already improvement. I do not want to put her into fluid overload. Patient has been doing well in the emergency department and I spoke to [facility] about transfer since she just had surgery there yesterday was discharged this morning. I spoke to the on-call neurosurgeon, Dr. Gonzalez, he states this is extremely unlikely to be a shunt malfunction or shunt infection expression concerning symptoms started only 1 day after procedure. She has not believe this is a surgical case and does not believe the patient needs to be transferred. The hospitalist, who did not speak directly to me, also states they do not have beds and cannot accepted for transfer. I explained that this patient just had surgery there yesterday and was discharged this morning. Also stated that the patient's daughter thought the patient was not acting normally at discharge and the discharge the patient any way. I was again told that the patient does not require Neuro surgery admission and hospitalist cannot accept her due to diversion. They explained I can probably safely admit her and [place] or can retry tomorrow morning. I then spoke to Dr. De Jesus again and at this time she will admit for likely pneumonia but would like a CT scan of the abdomen pelvis as the patient does have some mild tenderness around her incision sites. They do look to be healing well. Patient has no nuchal rigidity or signs of meningitis. <Kapil Gray, DO - Last Filed: 08/15/24 20:01> Patient is 69-year-old female presenting to emergency department for f josias and altered mental status with hypoxia. Considering her recent GARMENT INSPECTOR shunt there is some concern for an infection. Will do a broad workup including septic workup with lactate, blood cultures, CBC, CMP, EKG, troponin, COVID/flu/RSV. Will start with a L of fluids. Also do broad imaging including CT scan of her head and chest and would do a shunt series to make sure the shunt is functioning appropriately. Tylenol given for her fever. Morphine given for pain. I was able to get hold of neurosurgery about starting her on broad-spectrum antibiotics and if that would affect of possible shunt tap. They state is unlikely she developed a shunt infection this quickly after the procedure and do recommend starting her on antibiotics. Will order cefepime. Her lab work returned with a white count of 15.57 that neutrophil predominant. Rest of lab work shows no acute concerning abnormalities. Urinalysis shows no signs of a UTI. CT scan head and shunt series shows that the shunt appears appropriately positioned with no abnormalities. Cannot definitively say if the ventricular size is having changed. CT scan of the chest shows possible pneumonia verses aspiration. Considering the white counts elevated and the fever this is more likely to be pneumonia. Cefepime should adequately cover. I did speak to our hospitalist and they do not feel comfortable keeping her here due to the recent GARMENT INSPECTOR shunt procedure. Of note patient's mentation has improved significantly after her fever came down. She now appears to be close to her baseline. She still satting 91% on 2 L. Considering she does have COPD this is a reasonable level keep her at. Did give her another clear fluids but hesitant to give the full 30 PERCed heel of sepsis fluids due to her history of CHF and the already improvement. I do not want to put her into fluid overload. Patient has been doing well in the emergency department and I spoke to [facility] about transfer since she just had surgery there yesterday was discharged this morning. I spoke to the on-call neurosurgeon, Dr. Gonzalez, he states this is extremely unlikely to be a shunt malfunction or shunt infection expression concerning symptoms started only 1 day after procedure. She has not believe this is a surgical case and does not believe the patient needs to be transferred. The hospitalist, who did not speak directly to me, also states they do not have beds and cannot accepted for transfer. I explained that this patient just had surgery there yesterday and was discharged this morning. Also stated that the patient's daughter thought the patient was not acting normally at discharge and the discharge the patient any way. I was again told that the patient does not require Neuro surgery admission and hospitalist cannot accept her due to diversion. They explained I can probably safely admit her and [place] or can retry tomorrow morning. I then spoke to Dr. De Jesus again and at this time she will admit for likely pneumonia but would like a CT scan of the abdomen pelvis as the patient does have some mild tenderness around her incision sites. They do look to be healing well. Patient has no nuchal rigidity or signs of meningitis. This patient was signed out to me by Dr. Gray. He asked me to review the CT and contact hospitalist with whom he has already spoken. CT does not show any evidence of abscess organized fluid collection. I spoke with Dr. De Jesus who accepts this patient to the floor. Patient did request further pain medication and an additional 4 mg of morphine was ordered. <Carmen Jasmine MD - Last Filed: 08/15/24 21:07> Lab Data Labs: Lab Results 08/15/24 08/15/24 08/15/24 Range/Units 14:20 14:21 16:20 WBC 15.57 H (4.50-11.00) K/uL RBC 3.84 L (4.00-5.20) m/uL Hgb 11.7 L (12.0-16.0) gm/dL Hct 36.0 (33.0-51.0) % MCV 94 (80-100) fL MCH 31 (26-34) pg MCHC 33 (32-36) gm/dL RDW Coeff of Isiah 13.2 (11.5-15.5) % Plt Count 261 (140-440) K/uL Neut % (Auto) 85.2 H (42.0-72.0) % Lymph % (Auto) 7.2 L (20-44) % [place] % (Auto) 6.6 (0.0-11.0) % Eos % (Auto) 0.6 (0.0-7.0) % Baso % (Auto) 0.2 (0.0-3.0) % Neut # (Auto) 13.30 H (1.7-7.0) K/uL Lymph # (Auto) 1.10 (0.90-2.90) K/uL [place] # (Auto) 1.00 H (0.00-0.90) K/UL Eos # (Auto) 0.10 (0.00-0.50) K/uL Baso # (Auto) 0.00 (0.00-0.30) K/uL Abs Immat Gran (auto) 0.00 (0.00-0.30) K/uL Imm/Tot Granulo (auto) 0.2 % Sodium 132 L (135-149) mmol/L Potassium 4.3 (3.6-5.1) mmol/L Chloride 95 L (96-114) mmol/L Carbon Dioxide 27 (20-32) mmol/L Anion Gap 10 (7-15) mEq/L BUN 16 (7-30) mg/dL Creatinine 1.4 (0.5-1.5) mg/dL Estimated Creat Clear 37.18 Estimated GFR 40 ml/min Glucose 169 H (60-115) mg/dL Lactate 1.9 (0.5-1.9) mmol/L Calcium 9.1 (8.4-10.6) mg/dL Total Bilirubin 0.8 (0.1-1.5) mg/dL AST 32 (12-35) U/L ALT 26 (4-35) U/L Alkaline Phosphatase 68 (40-150) U/L Troponin I < 0.01 L (0.01-0.04) ng/mL Total Protein 7.7 (6.0-8.3) g/dL Albumin 4.7 (3.3-5.0) g/dL Urine Color Light yellow (Yellow) Urine Appearance Clear (Clear) Urine pH 6.0 (5.0-8.5) Ur Specific Fabius 1.010 (1.000-1.030) Urine Protein Negative (Negative) Urine Glucose (UA) Negative (Negative) Urine Ketones Negative (Negative) Urine Blood Negative (Negative) Urine Nitrite Negative (Negative) Urine Bilirubin Negative (Negative) Urine Urobilinogen 0.2 (0.2-1.0) Ur Leukocyte Esterase Negative (Negative) SARS-CoV-2 (PCR) Negative SARS-CoV-2 (Negative) Influenza Type A (PCR) Negative PCR FLU A (Negative) Influenza Type B (PCR) Negative PCR FLU B (Negative) RSV (PCR) Negative PCR RSV (Negative) <Kapil Gray, DO - Last Filed: 08/15/24 20:01> Lab Results 08/15/24 08/15/24 08/15/24 Range/Units 14:20 14:21 16:20 WBC 15.57 H (4.50-11.00) K/uL RBC 3.84 L (4.00-5.20) m/uL Hgb 11.7 L (12.0-16.0) gm/dL Hct 36.0 (33.0-51.0) % MCV 94 (80-100) fL MCH 31 (26-34) pg MCHC 33 (32-36) gm/dL RDW Coeff of Isiah 13.2 (11.5-15.5) % Plt Count 261 (140-440) K/uL Neut % (Auto) 85.2 H (42.0-72.0) % Lymph % (Auto) 7.2 L (20-44) % [place] % (Auto) 6.6 (0.0-11.0) % Eos % (Auto) 0.6 (0.0-7.0) % Baso % (Auto) 0.2 (0.0-3.0) % Neut # (Auto) 13.30 H (1.7-7.0) K/uL Lymph # (Auto) 1.10 (0.90-2.90) K/uL [place] # (Auto) 1.00 H (0.00-0.90) K/UL Eos # (Auto) 0.10 (0.00-0.50) K/uL Baso # (Auto) 0.00 (0.00-0.30) K/uL Abs Immat Gran (auto) 0.00 (0.00-0.30) K/uL Imm/Tot Granulo (auto) 0.2 % Sodium 132 L (135-149) mmol/L Potassium 4.3 (3.6-5.1) mmol/L Chloride 95 L (96-114) mmol/L Carbon Dioxide 27 (20-32) mmol/L Anion Gap 10 (7-15) mEq/L BUN 16 (7-30) mg/dL Creatinine 1.4 (0.5-1.5) mg/dL Estimated Creat Clear 37.18 Estimated GFR 40 ml/min Glucose 169 H (60-115) mg/dL Lactate 1.9 (0.5-1.9) mmol/L Calcium 9.1 (8.4-10.6) mg/dL Total Bilirubin 0.8 (0.1-1.5) mg/dL AST 32 (12-35) U/L ALT 26 (4-35) U/L Alkaline Phosphatase 68 (40-150) U/L Troponin I < 0.01 L (0.01-0.04) ng/mL Total Protein 7.7 (6.0-8.3) g/dL Albumin 4.7 (3.3-5.0) g/dL Urine Color Light yellow (Yellow) Urine Appearance Clear (Clear) Urine pH 6.0 (5.0-8.5) Ur Specific Fabius 1.010 (1.000-1.030) Urine Protein Negative (Negative) Urine Glucose (UA) Negative (Negative) Urine Ketones Negative (Negative) Urine Blood Negative (Negative) Urine Nitrite Negative (Negative) Urine Bilirubin Negative (Negative) Urine Urobilinogen 0.2 (0.2-1.0) Ur Leukocyte Esterase Negative (Negative) SARS-CoV-2 (PCR) Negative SARS-CoV-2 (Negative) Influenza Type A (PCR) Negative PCR FLU A (Negative) Influenza Type B (PCR) Negative PCR FLU B (Negative) RSV (PCR) Negative PCR RSV (Negative) <Carmen Jasmine MD - Last Filed: 08/15/24 21:07> Imaging Data CT scan head: Attestation: I have reviewed the pertinent imaging results. <Kapil Gray DO - Last Filed: 08/15/24 20:01> Radiologist's impression: 1. Ventricular catheter via a right parietal approach appears appropriately positioned. Ventricular size has not definitively changed. Ventricles were incompletely visualized on the comparison neck CT. 2. No acute intracranial hemorrhage or midline shift. 3. Mild generalized volume loss and changes of chronic small vessel ischemic disease. Dictated by Zack Farooq MD @ 08/15/2024 5:04:15 PM Please note that all CT scans at this facility use dose modulation, iterative reconstruction, and/or weight-based dosing when appropriate to reduce radiation dose to as low as reasonably achievable. Dictated by: Zack Farooq MD @ 08/15/2024 17:04:39 <Kapil Gray DO - Last Filed: 08/15/24 20:01> CT scan chest: Attestation: I have reviewed the pertinent imaging results. <Kapil Gray DO - Last Filed: 08/15/24 20:01> Radiologist's impression: 1. Right lower lobe dependent predominance and right upper lobe dependent predominant areas of patchy airspace disease. Differential considerations include infection versus aspiration. Recommend unenhanced chest CT in 3 months to document resolution. 2. 8 millimeter right upper lobe indeterminate pulmonary nodule. Attention on follow-up exam to document stability and assess malignant potential. 3. Trace amount of free air in the abdomen should be postprocedural. GARMENT INSPECTOR shunt catheter extends inferiorly off the [id number] within the peritoneum. Subcutaneous gas tracking anteriorly and inferiorly along the soft tissues likely postprocedural. Right-sided GARMENT INSPECTOR shunt catheter extending inferiorly in the soft tissues. No discrete kinking or catheter fracture. Please note that all CT scans at this facility use dose modulation, iterative reconstruction, and/or weight-based dosing when appropriate to reduce radiation dose to as low as reasonably achievable. Dictated by Walter Orellana MD @ 08/15/2024 4:58:54 PM <Kapil Gray DO - Last Filed: 08/15/24 20:01> Skull X-ray: Attestation: I have reviewed the pertinent imaging results. <Kapil Gray DO - Last Filed: 08/15/24 20:01> Radiologist's impression: Right posterior parietal approach GARMENT INSPECTOR shunt is identified distal tip coursing towards the midline likely within the right lateral ventricle. The shunt continues along the right parieto-occipital the subcutaneous soft tissues and into the right neck subcutaneous soft tissues. Visualized osseous structures are unremarkable. Visualized paranasal sinuses are unremarkable. Patient is edentulous. Dictated by Kirsten Lino MD @ 08/15/2024 5:56:41 PM <Kapil Gray DO - Last Filed: 08/15/24 20:01> Cervical spine x-ray: Attestation: I have reviewed the pertinent imaging results. <Kapil Gray, DO - Last Filed: 08/15/24 20:01> Radiologist's impression: Bones: Alignment is normal. No fractures or significant bone lesions. Joints: Disc spaces and facets demonstrate multilevel degenerative changes.. Soft tissues: GARMENT INSPECTOR shunt is identified with shunt coursing through the right neck subcutaneous soft tissues and along the right chest wall subcutaneous soft tissues.. Dictated by Kirsten Lino MD @ 08/15/2024 5:57:40 PM <Kapil Gray, DO - Last Filed: 08/15/24 20:01> Abdomen x-ray: Attestation: I have reviewed the pertinent imaging results. <Kapil Gray, DO - Last Filed: 08/15/24 20:01> Radiologist's impression: GARMENT INSPECTOR shunt is noted in the right lower quadrant subcutaneous soft tissues coiling and terminating in the right mid abdomen. Dictated by Kirsten Lino MD @ 08/15/2024 5:54:16 PM <Kapil Gray, DO - Last Filed: 08/15/24 20:01> Chest x-ray: Attestation: I have reviewed the pertinent imaging results. <Kapil Gray, DO - Last Filed: 08/15/24 20:01> Radiologist's impression: No acute cardiopulmonary process identified. GARMENT INSPECTOR shunt identified along the right chest wall. Dictated by Kirsten Lino MD @ 08/15/2024 5:43:06 PM <Kapil Gray DO - Last Filed: 08/15/24 20:01> ECG Data Attestation: I personally reviewed and interpreted this ECG as follows: <Kapil Gray, DO - Last Filed: 08/15/24 20:01> Prior ECG tracings: available for review <Kapil Gray, DO - Last Filed: 08/15/24 20:01> Interpretation: Sinus tachycardia with a rate 107 beats per, normal intervals, normal axis, no ST or T-wave abnormalities. Appears similar previous EKGs on file. <Kapil Gray DO - Last Filed: 08/15/24 20:01> Critical Care Time Critical Care Time Critical Care Time: Yes Attestation: The patient required my highest level preparedness to intervene emergently and I personally spent this critical care time directly and personally managing the patient. This critical care time included: Obtaining a history; Examining the patient; Pulse oximetry; Ordering and reviewing of studies; Arranging urgent treatment with development of a management plan; Evaluation of patients response to treatment; Frequent reassessment discussions with other providers. This critical care time was performed to assess and manage the high probability of imminent life-threatening deterioration that could result in multiorgan failure. It was exclusive of separate billable procedures and treating other patients and teaching time. <Kapil Gray DO - Last Filed: 08/15/24 20:01> Total Critical Care Time in Minutes: 56 <Kapil Gray DO - Last Filed: 08/15/24 20:01> Discharge Plan Discharge Clinical Impression: Pneumonia Qualifiers: Pneumonia type: due to unspecified organism Laterality: right Lung location: unspecified part of lung Qualified Code(s): J18.9 - Pneumonia, unspecified organism Sepsis Qualifiers: Sepsis type: sepsis due to unspecified organism Sepsis acute organ dysfunction status: without acute organ dysfunction Qualified Code(s): A41.9 - Sepsis, unspecified organism <Kapil Gray DO - Last Filed: 08/15/24 20:01> Patient Disposition: Admitted As Observation <Kapil Gray DO - Last Filed: 08/15/24 20:01> Condition: Improved <Kapil Gray DO - Last Filed: 08/15/24 20:01>
[2024-08-15 15:06] LABS: PCR FLU A Negative PCR FLU A (Negative); PCR FLU B Negative PCR FLU B (Negative); PCR RSV Negative PCR RSV (Negative); SARS PCR* Negative SARS-CoV-2 (Negative)
[2024-08-15 15:18] LABS: Troponin I* < 0.01 ng/mL (0.01-0.04)
[2024-08-15 17:25] LABS: Appearance Urine Clear (Clear); Bilirubin Urine Negative (Negative); Blood Urine Negative (Negative); Color Urine Light yellow (Yellow); Glucose Urine Negative (Negative); Ketones Urine Negative (Negative); Leukocyte Esterase Urine Negative (Negative); Nitrite Urine Negative (Negative); Protein Urine Negative (Negative); Urobilinogen Urine 0.2 (0.2-1.0)
[2024-08-15] MEDS: CEFEPIME HCL 2 GM in 0.9 % SODIUM CHLORIDE Mini-bag 100 ML IVPB (17:28)
--- NOTE | 2024-08-15 19:18 | CRLHL7_ITS ---
For Patients: As a result of the Century Cures Act, medical imaging exams and procedure reports are released immediately into your electronic medical record. You may view this report before your referring provider. If you have questions, please contact your health care provider. INDICATION: Abdominal pain near incision site, post CONVERSION MAN shunt placement. TECHNIQUE: CT abdomen and pelvis acquired with 100 mL Isovue 370 IV contrast. COMPARISON: None available. FINDINGS: Lower chest: Bibasilar dependent atelectasis. Cystic changes in the left lower lobe. No focal consolidation. Liver: No suspicious focal hepatic lesion. Gallbladder and bile ducts: Mildly hydropic gallbladder. No calcified gallstones. No pericholecystic inflammation. Pancreas: Unremarkable. Spleen: Unremarkable. Adrenal glands: Unremarkable. Kidneys: Kidneys enhance symmetrically, without hydronephrosis. Punctate nonobstructing calculus in the lower pole of the right kidney. Retroperitoneum: No lymphadenopathy. Bowel and mesentery: Bowel is not obstructed. Scattered colonic diverticulosis, without evidence of acute diverticulitis. Scattered foci of pneumoperitoneum. No significant ascites. The ventriculoperitoneal shunt tube tip terminates at the anterior right mid abdomen, no significant fluid collection adjacent to the tip. Bladder: Unremarkable for degree of distention. Reproductive organs: Unremarkable. Pelvic lymph nodes: No lymphadenopathy. Vessels: Atherosclerotic calcifications. Abdominal wall: Scattered subcutaneous emphysema. Subcutaneous inflammatory changes are present, without organized fluid collection/abscess at this time. Bones: Extensive multilevel degenerative changes of the spine. Bones are diffusely osteopenic. IMPRESSION: 1. Ventriculoperitoneal shunt tube tip terminates at the anterior right mid abdomen, no significant fluid collection adjacent to the tip. 2. Scattered subcutaneous emphysema and subcutaneous inflammatory changes are present, without organized fluid collection/abscess identified. 3. Small scattered foci of pneumoperitoneum. 4. Additional incidental findings as above. Please note that all CT scans at this facility use dose modulation, iterative reconstruction, and/or weight-based dosing when appropriate to reduce radiation dose to as low as reasonably achievable. Dictated by Kathie Chaudhry MD @ 08/15/2024 8:57:11 PM (Electronically Signed)
[2024-08-15] MEDS: VANCOMYCIN 1.75 GM/350 ML 1.75 GM/350 ML PIGGYBACK IVPB (23:33)
[2024-08-15 23:35] LABS: C Reactive Protein* 2.8 mg/dL (0.5-1.0)
--- NOTE | 2024-08-15 23:35 | P.IMHP_ITS ---
Assessment and Plan Assessment and plan (1) Sepsis: Problem comment: - likely secondary to pneumonia, less likely would be AQUATIC CENTRE MANAGER shunt infection Status: Acute Assessment and Plan: - ER doc spoke with [facility] several times this evening regarding this possibility and we were reassured that a AQUATIC CENTRE MANAGER shunt infection would not occur this soon after placement. - She was started on cefepime in the emergency department and I will add vancomycin for the concern of probable healthcare acquired pneumonia. She is not showing any signs of severe sepsis such as hypotension, elevated lactate, elevated creatinine, or acute respiratory failure severe enough to require BiPAP or mechanical ventilation. She got some IV fluids in the emergency department, but again her lactate is not elevated and she is not severe sepsis, and does have a history of CHF, so I do not have an indication for ongoing IV fluids at this time. (2) Acute hypoxemic respiratory failure: Problem comment: - secondary to pneumonia - patient also has a history of COPD, CHF, and obstructive sleep apnea. I am not seeing signs of COPD or CHF exacerbation. Status: Acute Assessment and Plan: - treat with supplemental oxygen and treat pneumonia as below (3) Pneumonia: Problem comment: - suspect healthcare acquired, was discharged from [facility] this morning. She has also been in an out of the hospital recently for acute parotiditis. Status: Acute Assessment and Plan: - admit to the hospital for supplemental oxygen, monitoring, treatment with antibiotics: Will use cefepime and vancomycin. Consult RT. - check another MRSA swab, notably the one done several weeks ago was negative. - I do not think she would benefit from steroids as I do not think she has a COPD exacerbation with this, and I am hesitant to use steroids in the setting of very recent AQUATIC CENTRE MANAGER shunt placement and type 2 DM. (4) S/P AQUATIC CENTRE MANAGER shunt: Problem comment: - placed 08/14/24 at [facility] for normal pressure hydrocephalus Status: Acute (5) Normal pressure hydrocephalus: Problem comment: with chronic dizziness, urinary urgency & cognitive dysfunction. AQUATIC CENTRE MANAGER shunt placement 08/14/24 [facility]. Status: Chronic (6) Type 2 diabetes mellitus, without long-term current use of insulin: Problem comment: Has been diet controlled and on Ozempic in the past, but does [facility] has been on hold recently for AQUATIC CENTRE MANAGER shunt. Status: Chronic Assessment and Plan: - start insulin sliding scale while in the hospital (7) Stage 3b chronic kidney disease: Status: Chronic Assessment and Plan: - stable, monitor (8) Primary hypertension: Status: Chronic Assessment and Plan: - continue home meds. Patient has sepsis, monitor for hypotention, hold BPs meds if that develops (9) Mixed hyperlipidemia: Status: Chronic Assessment and Plan: - continue home meds (10) Chronic diastolic heart failure: Status: Chronic Assessment and Plan: - stable. Chronic. Continue home torsemide at current dose. (11) Obstructive sleep apnea: Problem comment: Stopped using CPAP years ago. Status: Chronic (12) COPD (chronic obstructive pulmonary disease): Status: Chronic Assessment and Plan: as above (13) Pulmonary nodule: Problem comment: - Stable per [facility] 05/2022 CT. Recommend annual screening w/ Low-Dose CT. - Seen on NH&C 10/10/23 CT. - Seen on CT chest 08/15/24 Status: Acute Assessment and Plan: - unclear from read if it is stable. May need to check with radiologist in am to compare Total Time Spent Total Time Spent: Time spent: Today I spent 75 minutes seeing the patient, discussing the patient with ER staff, reviewing Expanse and EPIC notes/diagnostics, discussing the care plan with our care team that includes social work, PT/OT, pharmacy, RT, half-way and documenting my impressions and plan in the medical record. MEDICAL NECESSITY FOR HOSPITALIZATION Anticipated midnights in the hospital: 2 Admitting diagnosis: Healthcare acquired pneumonia Risk of morbidity and mortality: high Acuity is characterized as high and reflected in: The patient had a AQUATIC CENTRE MANAGER shunt placed yesterday, has a recent history of recurrent acute parotitis which required hospitalization, and she has a history of type 2 diabetes. These 3 comorbidities specifically would increase the risk during treatment and potentially prolong treatment length. This patient will require hospital services as outlined in the assessment and plan in order to stabilize and be safely discharged to a lower level of care. Because of the risk and acuity as described above, this patient cannot be managed at a lower level of care. LENGTH OF STAY: 2 IP ? Anticipated LOS>2 midnights due to acuity of clinical presentation requiring inpatient level of care Hospitalist- H&P: HPI History of Present Illness Time Seen by Provider: 22:00 Date Seen: 08/15/24 Chief complaint: low blood oxygen level Narrative: Anna Ortega is a 69 year old female who is well known to me from several recent admissions for parotitis who presented today through the ER for hypoxia, confusion, and fever after getting a new AQUATIC CENTRE MANAGER shunt placed yesterday. Anna has had several bouts of peritonitis this year for which she has been on various antibiotics and most recently at the end of July finished a course of metronidazole and followed up with in ENT provider at [facility] who thought this ap peared completely resolved and that she was okay to undergo AQUATIC CENTRE MANAGER shunt placement for normal-pressure hydrocephalus. She tells me that he recommended that she get shunt placed on the left side since she has had so much trouble with peritonitis on the right. The neurosurgeon ultimately did place the AQUATIC CENTRE MANAGER shunt on the right side yesterday at [facility]. She was kept overnight in the hospital. Anna's daughter, Lea, is with her today and notes that Anna had a little bit of a cough last night, which they thought was just due to getting intubated for the AQUATIC CENTRE MANAGER shunt. This morning Anna was a little bit confused in the hospital prior to discharge, but the provider attributed that to her getting pain medications. On the way home in the car Anna was very sleepy and kept nodding off. Lea thought this was really unusual because Anna never sleeps in the car. When they got home Anna was extremely confused and sleepy. Lea put a pulse oximeter on Anna's finger and it read in the 60s. She called the ambulance and Anna was taken to the ER. In the ER she was found to have a fever of 103. Her confusion started to clear. She complains of pain in her right neck where the incision for the AQUATIC CENTRE MANAGER shunt placement is. This evening Anna is able to give me some history, but she does not recall anything about being home today. Anna recalls me from previous admissions and was able to having c onversation including details from previous visits. Review of Systems Status of ROS: Reports: 10 or more systems reviewed and unremarkable except as noted in History and below [facility] Medical History (Updated 08/16/24 @ 00:26 by Caprice De Jesus MD) Acute parotitis (06/19/24) ?K11.21 - Acute sialoadenitis (ICD-10) Comminuted right humeral fracture with nonunion (2019) ?S42.351K - Displaced comminuted fracture of shaft of humerus, right arm, subsequent encounter for fracture with nonunion (ICD-10) Venous insufficiency ?I87.2 - Venous insufficiency (chronic) (peripheral) (ICD-10) Hammertoes of both feet (05/22/20) ?M20.41 - Other hammer toe(s) (acquired), right foot (ICD-10) ?M20.42 - Other hammer toe(s) (acquired), left foot (ICD-10) Depression with anxiety (03/06/14) ?F41.8 - Other specified anxiety disorders (ICD-10) Migraine headache ?G43.909 - Migraine, unspecified, not intractable, without status migrainosus (ICD-10) Insomnia ?G47.00 - Insomnia, unspecified (ICD-10) Chronic bilateral low back pain without sciatica (09/11/15) ?M54.50 - Low back pain, unspecified (ICD-10) ?G89.29 - Other chronic pain (ICD-10) History of adenomatous polyp of colon (09/30/15) ?Z86.0101 - Personal history of adenomatous and serrated colon polyps (ICD- 10) Diabetic peripheral neuropathy (08/08/14) ?E11.42 - Type 2 diabetes mellitus with diabetic polyneuropathy (ICD-10) Chronic diastolic heart failure (07/06/14) ?I50.32 - Chronic diastolic (congestive) heart failure (ICD-10) Mixed hyperlipidemia ?E78.2 - Mixed hyperlipidemia (ICD-10) Primary hypertension ?I10 - Essential (primary) hypertension (ICD-10) Stage 3b chronic kidney disease (01/15/21) ?N18.32 - Chronic kidney disease, stage 3b (ICD-10) Exogenous obesity ?E66.09 - Other obesity due to excess calories (ICD-10) Type 2 diabetes mellitus, without long-term current use of insulin ?E11.9 - Type 2 diabetes mellitus without complications (ICD-10) Normal pressure hydrocephalus ?G91.2 - (Idiopathic) normal pressure hydrocephalus (ICD-10) Anxiety ?F41.9 - Anxiety disorder, unspecified (ICD-10) Gastroesophageal reflux ?K21.9 - Gastro-esophageal reflux disease without esophagitis (ICD-10) Obstructive sleep apnea ?G47.33 - Obstructive sleep apnea (adult) (pediatric) (ICD-10) Pulmonary nodule (10/10/23) ?R91.1 - Solitary pulmonary nodule (ICD-10) Chronic renal failure, stage 3b ?N18.32 - Chronic kidney disease, stage 3b (ICD-10) COPD (chronic obstructive pulmonary disease) ?J44.9 - Chronic obstructive pulmonary disease, unspecified (ICD-10) Surgical History (Updated 08/16/24 @ 00:16 by Caprice De Jesus MD) S/P AQUATIC CENTRE MANAGER shunt (08/14/24) ?Z98.2 - Presence of cerebrospinal fluid drainage device (ICD-10) History of elbow surgery ?Z98.890 - Other specified postprocedural states (ICD-10) History of bilateral carpal tunnel release ?Z98.890 - Other specified postprocedural states (ICD-10) History of thyroid surgery ?Z98.890 - Other specified postprocedural states (ICD-10) History of knee surgery ?Z98.890 - Other specified postprocedural states (ICD-10) History of oophorectomy History of section ?Z98.891 - History of uterine scar from previous surgery (ICD-10) History of appendectomy ?Z90.49 - Acquired absence of other specified parts of digestive tract (ICD- 10) Hx of shoulder surgery ?Z98.890 - Other specified postprocedural states (ICD-10) History of parathyroidectomy ?Z98.890 - Other specified postprocedural states (ICD-10) ?Z90.89 - Acquired absence of other organs (ICD-10) Family History Brother Diabetes Hx of CABG Sister Diabetes Father Lung cancer Prostate cancer Mother Lung cancer Heart disease Social History (Updated 08/15/24 @ 23:51 by Caprice De Jesus MD) Narrative: , two kids, lives with her brother, former smoker, no EtOH, full code, daughter is POA, FULL CODE What is your current living situation?: I presently have a place to live Problems where you live: no known problems Problems where you live details: N/A In the past 12 months, utilities in danger of being shut off: no In past 12 months, lack of transportation kept you from medical appts, meetings, work, or getting things needed for daily living: no In the past 12 mos, have been you worried that your food would run out before you had money to buy more?: never true In the past 12 mos, the food you bought just didn't last and you didn't have money to buy more?: never true Highest level of school completed/degree received: 12th grade, no diploma Smoking Status: Former smoker What tobacco products do you use: cigarettes Smoking quit date/years: >15 years ago Do you use any of these nicotine containing products: None How often do you have a drink containing alcohol: never How often do you have six or more drinks on one occasion: Never AUDIT-C Alcohol total score: 0 Non-prescribed substance use: denies use Caffeine: Yes How often does anyone, including family, friends and others, physically hurt you : never How often does anyone, including family, friends and others, insult or talk down to you: never How often does anyone, including family, friends and others, threaten you with harm: never How often does anyone, including family, friends and others, scream or curse at you: never service: No Meds Home Medications and Allergies Home Medications ?Medication ?Instructions ?Recorded ?Confirmed ?Type albuterol sulfate 90 mcg/actuation 2 puff inhalation Q4H PRN 10/10/23 08/15/24 History aerosol inhaler amitriptyline 50 mg tablet 150 mg PO HS 10/10/23 08/15/24 History aspirin 81 mg tablet,delayed 81 mg PO HS 10/10/23 08/15/24 History release atorvastatin 80 mg tablet 80 mg PO DAILY 10/10/23 08/15/24 History diclofenac sodium 1 % topical gel 4 g topical QID PRN 10/10/23 08/15/24 History ezetimibe 10 mg tablet 10 mg PO DAILY 10/10/23 08/15/24 History gabapentin 300 mg capsule 300 mg PO HS 10/10/23 08/15/24 History multivitamin with minerals 1 cap PO DAILY 10/10/23 08/15/24 History omeprazole 40 mg capsule,delayed 40 mg PO BID 10/10/23 08/15/24 History release tiotropium bromide 2.5 2 inh inhalation Q24H 10/10/23 08/15/24 History mcg/actuation mist for inhalation (Spiriva Respimat) torsemide 20 mg tablet 80 mg PO DAILY 10/10/23 08/15/24 History venlafaxine 150 mg 150 mg PO DAILY 10/10/23 08/15/24 History capsule,extended release 24 hr losartan 50 mg tablet 50 mg PO DAILY 10/11/23 08/15/24 History blood sugar diagnostic (OneTouch #10 ea 08/10/24 08/10/24 History Verio test strips) blood-glucose meter (OneTouch #1 ea 08/10/24 08/10/24 History Verio Reflect Meter) semaglutide 2 mg/dose (8 mg/3 mL) 2 mg subcut 08/10/24 08/10/24 History subcutaneous pen injector (Ozempic) Allergies Allergy/AdvReac Type Severity Reaction Status Date / Time adhesive tape Allergy Intermediate Hives Verified 08/11/24 08:54 Penicillins Allergy Intermediate Hives Verified 08/11/24 08:54 metformin AdvReac Unknown GI Verified 08/11/24 08:54 Intolerance Exam Narrative: Exam Narrative: General: No acute distress. Sleepy at times, but mostly awake alert oriented x3. HEENT: Postsurgical with shaved right posterior scalp with a bandage that has an upside-down tear drop shaped area of dried blood approximately the size of a quarter there is no erythema surrounding this area, no induration, no purulence on the bandage, the area is tender to palpation. Pupils equally round and reactive to light and accommodation. Oropharynx clear. Mucous membranes are moist. No cervical lymphadenopathy, thyromegaly or carotid bruits. No JVD. Cardiovascular: Regular rate and rhythm. No murmurs, gallops, or rubs. Chest: No increased work of breathing. Clear to auscultation bilaterally. No crackles or wheezes. Abdomen: Bowel sounds present. Soft, nondistended, nontender. No hepatosplenom egaly or masses. Extremities: No edema, no cyanosis or clubbing. Skin: As above, No jaundice, no pallor, no rashes. Neuro: Grossly intact. No focal deficits. Const: Vital Signs, click to edit/add: Vital Signs - 24 hr 08/15/24 14:13 08/15/24 14:15 08/15/24 14:18 Temperature Pulse Rate 112 H 109 H 108 H Pulse Rate [Pulse Oximeter] Respiratory Rate Blood Pressure 149/64 H Blood Pressure [Ri ght Arm] Blood Pressure [Ri ght Upper Arm] Pulse Oximetry 89 90 93 Oxygen Delivery Me thod Oxygen Flow Rate 08/15/24 14:21 08/15/24 14:30 08/15/24 14:33 Temperature 103.5 F H 102.4 F H Pulse Rate 106 H 110 H Pulse Rate [Pulse Oximeter] 106 H Respiratory Rate 22 25 H 17 Blood Pressure 129/77 Blood Pressure [Ri ght Arm] Blood Pressure [Ri ght Upper Arm] 149/64 H Pulse Oximetry 88 92 91 Oxygen Delivery Me thod Room Air Nasal Cannula Oxygen Flow Rate 2 08/15/24 14:34 08/15/24 14:45 08/15/24 14:47 Temperature Pulse Rate 108 H 108 H 106 H Pulse Rate [Pulse Oximeter] Respiratory Rate 9 L 25 H 22 Blood Pressure 133/70 Blood Pressure [Ri ght Arm] Blood Pressure [Ri ght Upper Arm] Pulse Oximetry 91 92 91 Oxygen Delivery Me thod Nasal Cannula Oxygen Flow Rate 2 08/15/24 15:54 08/15/24 15:55 08/15/24 16:00 Temperature Pulse Rate 104 H 104 H 105 H Pulse Rate [Pulse Oximeter] Respiratory Rate 18 Blood Pressure 128/82 Blood Pressure [Ri ght Arm] Blood Pressure [Ri ght Upper Arm] Pulse Oximetry 90 91 91 Oxygen Delivery Me thod Nasal Cannula Nasal Cannula Oxygen Flow Rate 2 2 08/15/24 16:05 08/15/24 16:06 08/15/24 16:20 Temperature Pulse Rate 104 H 103 H Pulse Rate [Pulse Oximeter] Respiratory Rate Blood Pressure Blood Pressure [Ri ght Arm] Blood Pressure [Ri ght Upper Arm] Pulse Oximetry 91 91 90 Oxygen Delivery Me thod Nasal Cannula Nasal Cannula Oxygen Flow Rate 2 1 08/15/24 16:57 08/15/24 16:59 08/15/24 17:00 Temperature 98.5 F Pulse Rate 104 H 102 H Pulse Rate [Pulse Oximeter] Respiratory Rate 25 H 16 14 Blood Pressure 114/67 Blood Pressure [Ri ght Arm] Blood Pressure [Ri ght Upper Arm] Pulse Oximetry 92 92 Oxygen Delivery Me thod Nasal Cannula Oxygen Flow Rate 2 08/15/24 17:15 08/15/24 17:30 08/15/24 17:45 Temperature Pulse Rate 103 H 100 100 Pulse Rate [Pulse Oximeter] Respiratory Rate 10 L 14 13 Blood Pressure Blood Pressure [Ri ght Arm] Blood Pressure [Ri ght Upper Arm] Pulse Oximetry 91 92 90 Oxygen Delivery Me thod Oxygen Flow Rate 08/15/24 18:00 08/15/24 18:15 08/15/24 18:21 Temperature Pulse Rate 106 H 101 H 99 Pulse Rate [Pulse Oximeter] Respiratory Rate 12 12 13 Blood Pressure 111/66 Blood Pressure [Ri ght Arm] Blood Pressure [Ri ght Upper Arm] Pulse Oximetry 90 91 93 Oxygen Delivery Me thod Nasal Cannula Oxygen Flow Rate 2 08/15/24 18:22 08/15/24 18:28 08/15/24 18:30 Temperature Pulse Rate 99 101 H 101 H Pulse Rate [Pulse Oximeter] Respiratory Rate 13 12 Blood Pressure 123/68 Blood Pressure [Ri ght Arm] Blood Pressure [Ri ght Upper Arm] Pulse Oximetry 91 89 91 Oxygen Delivery Me thod Nasal Cannula Oxygen Flow Rate 2 08/15/24 18:32 08/15/24 18:45 08/15/24 18:47 Temperature Pulse Rate 100 100 99 Pulse Rate [Pulse Oximeter] Respiratory Rate 12 11 L 10 L Blood Pressure 117/63 114/61 Blood Pressure [Ri ght Arm] Blood Pressure [Ri ght Upper Arm] Pulse Oximetry 91 93 91 Oxygen Delivery Me thod Nasal Cannula Oxygen Flow Rate 2 08/15/24 19:00 08/15/24 19:02 08/15/24 19:15 Temperature Pulse Rate 99 98 98 Pulse Rate [Pulse Oximeter] Respiratory Rate 13 17 11 L Blood Pressure 115/66 Blood Pressure [Ri ght Arm] Blood Pressure [Ri ght Upper Arm] Pulse Oximetry 89 91 92 Oxygen Delivery Me thod Oxygen Flow Rate 08/15/24 19:17 08/15/24 19:18 08/15/24 19:30 Temperature Pulse Rate 100 98 99 Pulse Rate [Pulse Oximeter] Respiratory Rate 23 22 32 H Blood Pressure 128/78 Blood Pressure [Ri ght Arm] Blood Pressure [Ri ght Upper Arm] Pulse Oximetry 92 92 90 Oxygen Delivery Me thod Oxygen Flow Rate 08/15/24 19:32 08/15/24 19:33 08/15/24 20:02 Temperature Pulse Rate 99 97 99 Pulse Rate [Pulse Oximeter] Respiratory Rate 18 13 Blood Pressure 129/75 Blood Pressure [Ri ght Arm] Blood Pressure [Ri ght Upper Arm] Pulse Oximetry 93 92 93 Oxygen Delivery Me thod Nasal Cannula Oxygen Flow Rate 2 08/15/24 20:03 08/15/24 20:15 08/15/24 20:17 Temperature Pulse Rate 97 95 94 Pulse Rate [Pulse Oximeter] Respiratory Rate 14 15 Blood Pressure 120/75 120/61 Blood Pressure [Ri ght Arm] Blood Pressure [Ri ght Upper Arm] Pulse Oximetry 92 92 92 Oxygen Delivery Me thod Nasal Cannula Oxygen Flow Rate 2 08/15/24 20:30 08/15/24 20:32 08/15/24 20:33 Temperature Pulse Rate 95 95 95 Pulse Rate [Pulse Oximeter] Respiratory Rate 15 16 16 Blood Pressure 132/72 Blood Pressure [Ri ght Arm] Blood Pressure [Ri ght Upper Arm] Pulse Oximetry 92 91 92 Oxygen Delivery Me thod Oxygen Flow Rate 08/15/24 20:45 08/15/24 20:47 08/15/24 21:00 Temperature Pulse Rate 94 96 95 Pulse Rate [Pulse Oximeter] Respiratory Rate 15 16 Blood Pressure 139/69 Blood Pressure [Ri ght Arm] Blood Pressure [Ri ght Upper Arm] Pulse Oximetry 93 93 94 Oxygen Delivery Me thod Oxygen Flow Rate 08/15/24 21:03 08/15/24 21:04 08/15/24 21:15 Temperature Pulse Rate 94 94 92 Pulse Rate [Pulse Oximeter] Respiratory Rate 14 17 14 Blood Pressure 148/65 H Blood Pressure [Ri ght Arm] Blood Pressure [Ri ght Upper Arm] Pulse Oximetry 93 93 92 Oxygen Delivery Me thod Nasal Cannula Oxygen Flow Rate 2 08/15/24 21:18 08/15/24 22:33 08/15/24 22:33 Temperature 100.5 F H 98.5 F Pulse Rate 97 Pulse Rate [Pulse Oximeter] 88 Respiratory Rate 12 12 12 Blood Pressure 144/65 H Blood Pressure [Ri ght Arm] 128/87 Blood Pressure [Ri ght Upper Arm] Pulse Oximetry 94 94 94 Oxygen Delivery Me thod Nasal Cannula Nasal Cannula Oxygen Flow Rate 2 2 Hospitalist - H&P: Result Labs Labs: Short CBC 08/15/24 Range/Units 14:20 WBC 15.57 H (4.50-11.00) K/uL Hgb 11.7 L (12.0-16.0) gm/dL Hct 36.0 (33.0-51.0) % Plt Count 261 (140-440) K/uL BMP 08/15/24 14:20 Sodium 132 L Potassium 4.3 Chloride 95 L Carbon Dioxide 27 BUN 16 Creatinine 1.4 Glucose 169 H Calcium 9.1 Cardiac Enzymes 08/15/24 Range/Units 14:20 Troponin I < 0.01 L (0.01-0.04) ng/mL Liver Function 08/15/24 Range/Units 14:20 Total Bilirubin 0.8 (0.1-1.5) mg/dL AST 32 (12-35) U/L ALT 26 (4-35) U/L Alkaline Phosphatase 68 (40-150) U/L Albumin 4.7 (3.3-5.0) g/dL Urine 08/15/24 Range/Units 16:20 Urine Color Light yellow (Yellow) Urine Appearance Clear (Clear) Urine pH 6.0 (5.0-8.5) Ur Specific [place] 1.010 (1.000-1.030) Urine Protein Negative (Negative) Urine Glucose (UA) Negative (Negative) 08/15/2024 sinus tachycardia, 107 beats per minute, otherwise normal EKG. Ordering Physician: Kapil Gray D.O. Date of Service: 08/15/24 Procedure(s): CT head/brain wo con Accession Number(s): [id number] cc: Kapil Gray D.O.; Walter Mcgovern M.D.~ For Patients: As a result of the Cures Act, medical imaging exams and procedure reports are released immediately into your electronic medical record. You may view this report before your referring provider. If you have questions, please contact your health care provider. INDICATION: Confusion. AQUATIC CENTRE MANAGER shunt place yesterday. TECHNIQUE: CT head without contrast. COMPARISON: CT neck 07/17/2024. FINDINGS: Ventricular catheter via a right parietal approach with tip terminating near the midline appears appropriately positioned. Associated soft tissue gas suggests sequela of recent surgery. The ventricles were incompletely imaged on the comparison neck CT, however, ventricular size has not definitively changed. Mild generalized volume loss and ill-defined low-attenuation in the periventricular and subcortical white matter. No mass effect or midline shift. No CT evidence of acute hemorrhage or infarction. No abnormal extra-axial fluid collection. Intracranial atherosclerosis. Bone windows show no acute calvarial fracture. Paranasal sinuses and orbits as imaged are unremarkable. IMPRESSION: 1. Ventricular catheter via a right parietal approach appears appropriately positioned. Ventricular size has not definitively changed. Ventricles were incompletely visualized on the comparison neck CT. 2. No acute intracranial hemorrhage or midline shift. 3. Mild generalized volume loss and changes of chronic small vessel ischemic disease. Dictated by Zack Farooq MD @ 08/15/2024 5:04:15 PM Please note that all CT scans at this facility use dose modulation, iterative reconstruction, and/or weight-based dosing when appropriate to reduce radiation dose to as low as reasonably achievable. Dictated by: Zack Farooq MD @ 08/15/2024 17:04:39 (Electronically Signed) Ordering Physician: Kapil Gray D.O. Date of Service: 08/15/24 Procedure(s): XR abdomen min 2V Accession Number(s): [id number] cc: Kapil Gray D.O.; Walter Mcgovern M.D.~ For Patients: As a result of the Cures Act, medical imaging exams and procedure reports are released immediately into your electronic medical record. You may view this report before your referring provider. If you have questions, please contact your health care provider. Indication: SHUNT PLACEMENT. Technique: Abdomen 2 view. Comparison: None. Findings: AQUATIC CENTRE MANAGER shunt: AQUATIC CENTRE MANAGER shunt is identified in the right subcutaneous soft tissues coiling and terminating in the right mid abdomen. Bowel: Bowel pattern is normal. The amount of colonic stool is within normal limits. Other: No sign of free air. No sign of soft tissue mass. No suspicious calcifications. Osseous structures are unremarkable for age. Impression: AQUATIC CENTRE MANAGER shunt is noted in the right lower quadrant subcutaneous soft tissues coiling and terminating in the right mid abdomen. Dictated by Kirsten Lino MD @ 08/15/2024 5:54:16 PM (Electronically Signed) Ordering Physician: Kapil Gray D.O. Date of Service: 08/15/24 Procedure(s): XR cervical spine 2-3V Accession Number(s): [id number] cc: Kapil Gray D.O.; Walter Mcgovern M.D.~ For Patients: As a result of the Cures Act, medical imaging exams and procedure reports are released immediately into your electronic medical record. You may view this report before your referring provider. If you have questions, please contact your health care provider. INDICATION: Shunt placement. TECHNIQUE: Cervical spine 2 view. COMPARISON: None. FINDINGS: Bones: Alignment is normal. No fractures or significant bone lesions. Joints: Disc spaces and facets demonstrate multilevel degenerative changes.. Soft tissues: AQUATIC CENTRE MANAGER shunt is identified with shunt coursing through the right neck subcutaneous soft tissues and along the right chest wall subcutaneous soft tissues.. Dictated by Kirsten Lino MD @ 08/15/2024 5:57:40 PM (Electronically Signed) Ordering Physician: Kapil Gray D.O. Date of Service: 08/15/24 Procedure(s): CT chest wo con Accession Number(s): [id number] cc: Kapil Gray D.O.; Walter Mcgovern M.D.~ For Patients: As a result of the Cures Act, medical imaging exams and procedure reports are released immediately into your electronic medical record. You may view this report before your referring provider. If you have questions, please contact your health care provider. INDICATION: CONFUSION, AQUATIC CENTRE MANAGER SHUNT PLACED YESTERDAY TECHNIQUE: CT chest without contrast. COMPARISON: Soft tissue CTs dating back to May 2024. FINDINGS: Lungs and Airways: Motion. Right lower lobe dependent predominance and right upper lobe dependent predominant areas of patchy airspace disease. Emphysema. 8 millimeter right upper lobe indeterminate pulmonary nodule. Retained tracheal secretions. Heart and Mediastinum: The visualized portions of the thyroid are normal. No axillary or supraclavicular lymphadenopathy. No mediastinal, hilar or retrocrural lymphadenopathy. Normal heart size. Normal caliber aorta. Atherosclerotic and coronary artery calcifications. Pleura: The pleural spaces are normal. Abdomen: Trace amount of free air in the abdomen should be postprocedural. AQUATIC CENTRE MANAGER shunt catheter extends inferiorly off the [id number] within the peritoneum. Gallbladder sludge. Bones and soft tissues: Subcutaneous gas tracking anteriorly and inferiorly along the soft tissues likely postprocedural. Right-sided AQUATIC CENTRE MANAGER shunt catheter extending inferiorly in the soft tissues. No discrete kinking or catheter fracture. Advanced bilateral ejebe-uggmrry-sofx-left glenohumeral joint arthrosis. Old right humeral neck fracture. Old right-sided rib fractures. Thoracic spondylosis. IMPRESSION: 1. Right lower lobe dependent predominance and right upper lobe dependent predominant areas of patchy airspace disease. Differential considerations include infection versus aspiration. Recommend unenhanced chest CT in 3 months to document resolution. 2. 8 millimeter right upper lobe indeterminate pulmonary nodule. Attention on follow-up exam to document stability and assess malignant potential. 3. Trace amount of free air in the abdomen should be postprocedural. AQUATIC CENTRE MANAGER shunt catheter extends inferiorly off the [id number]-jrut within the peritoneum. Subcutaneous gas tracking anteriorly and inferiorly along the soft tissues likely postprocedural. Right-sided AQUATIC CENTRE MANAGER shunt catheter extending inferiorly in the soft tissues. No discrete kinking or catheter fracture. Please note that all CT scans at this facility use dose modulation, iterative reconstruction, and/or weight-based dosing when appropriate to reduce radiation dose to as low as reasonably achievable. Dictated by Walter Orellana MD @ 08/15/2024 4:58:54 PM (Electronically Signed) Ordering Physician: Kapil Gray D.O. Date of Service: 08/15/24 Procedure(s): XR chest 1V Accession Number(s): [id number] cc: Kapil Gray D.O.; Walter Mcgovern M.D.~ For Patients: As a result of the Cures Act, medical imaging exams and procedure reports are released immediately into your electronic medical record. You may view this report before your referring provider. If you have questions, please contact your health care provider. INDICATION: Shunt placement. TECHNIQUE: Chest 1 views. COMPARISON: None. FINDINGS: Cardiovascular and mediastinum: Cardiomediastinal silhouette is within normal limits. Lungs and pleural spaces: Lungs are clear. No sign of pleural effusion. No pneumothorax. Bones and soft tissues: AQUATIC CENTRE MANAGER shunt is visualized coursing along the right chest wall.. No fractures identified along its course. IMPRESSION: No acute cardiopulmonary process identified. AQUATIC CENTRE MANAGER shunt identified along the right chest wall. Dictated by Kirsten Lino MD @ 08/15/2024 5:43:06 PM (Electronically Signed) Ordering Physician: Kapil Gray D.O. Date of Service: 08/15/24 Procedure(s): XR skull <4V Accession Number(s): [id number] cc: Kapil Gray D.O.; Walter Mcgovern M.D.~ For Patients: As a result of the Cures Act, medical imaging exams and procedure reports are released immediately into your electronic medical record. You may view this report before your referring provider. If you have questions, please contact your health care provider. Indication: AQUATIC CENTRE MANAGER shunt placement. Technique: Skull, 2 views. Comparison: None. Findings/impression: Right posterior parietal approach AQUATIC CENTRE MANAGER shunt is identified distal tip coursing towards the midline likely within the right lateral ventricle. The shunt continues along the right parieto-occipital the subcutaneous soft tissues and into the right neck subcutaneous soft tissues. Visualized osseous structures are unremarkable. Visualized paranasal sinuses are unremarkable. Patient is edentulous. Dictated by Kirsten Lino MD @ 08/15/2024 5:56:41 PM (Electronically Signed) Ordering Physician: Kapil Gray D.O. Date of Service: 08/15/24 Procedure(s): CT abdomen pelvis w con Accession Number(s): [id number] cc: Kapil Gray D.O.; Walter Mcgovern M.D.~ For Patients: As a result of the Cures Act, medical imaging exams and procedure reports are released immediately into your electronic medical record. You may view this report before your referring provider. If you have questions, please contact your health care provider. INDICATION: Abdominal pain near incision site, post AQUATIC CENTRE MANAGER shunt placement. TECHNIQUE: CT abdomen and pelvis acquired with 100 mL Isovue 370 IV contrast. COMPARISON: None available. FINDINGS: Lower chest: Bibasilar dependent atelectasis. Cystic changes in the left lower lobe. No focal consolidation. Liver: No suspicious focal hepatic lesion. Gallbladder and bile ducts: Mildly hydropic gallbladder. No calcified gallstones. No pericholecystic inflammation. Pancreas: Unremarkable. Spleen: Unremarkable. Adrenal glands: Unremarkable. Kidneys: Kidneys enhance symmetrically, without hydronephrosis. Punctate nonobstructing calculus in the lower pole of the right kidney. Retroperitoneum: No lymphadenopathy. Bowel and mesentery: Bowel is not obstructed. Scattered colonic diverticulosis, without evidence of acute diverticulitis. Scattered foci of pneumoperitoneum. No significant ascites. The ventriculoperitoneal shunt tube tip terminates at the anterior right mid abdomen, no significant fluid collection adjacent to the tip. Bladder: Unremarkable for degree of distention. Reproductive organs: Unremarkable. Pelvic lymph nodes: No lymphadenopathy. Vessels: Atherosclerotic calcifications. Abdominal wall: Scattered subcutaneous emphysema. Subcutaneous inflammatory changes are present, without organized fluid collection/abscess at this time. Bones: Extensive multilevel degenerative changes of the spine. Bones are diffusely osteopenic. IMPRESSION: 1. Ventriculoperitoneal shunt tube tip terminates at the anterior right mid abdomen, no significant fluid collection adjacent to the tip. 2. Scattered subcutaneous emphysema and subcutaneous inflammatory changes are present, without organized fluid collection/abscess identified. 3. Small scattered foci of pneumoperitoneum. 4. Additional incidental findings as above. Please note that all CT scans at this facility use dose modulation, iterative reconstruction, and/or weight-based dosing when appropriate to reduce radiation dose to as low as reasonably achievable. Dictated by Kathie Chaudhry MD @ 08/15/2024 8:57:11 PM (Electronically Signed)
[2024-08-15 23:49] LABS: Procalcitonin* 0.21 ng/mL (<0.50)
[2024-08-16] VITALS (9 sets, daily range): BP systolic 115–152; BP diastolic 53–84; PULSE 85–95; RESP 16–18; TEMP 36.8–37.4; O2SAT 90–100
[2024-08-16] MEDS: HYDROmorphone 2 MG TABLET PO ×4 (00:21→21:13)
[2024-08-16] MEDS: AMITRIPTYLINE 25 MG TABLET 150 MG PO ×2 (00:34→21:01)
[2024-08-16] MEDS: CEFEPIME HCL 2 GM in 0.9 % SODIUM CHLORIDE Mini-bag 100 ML IVPB ×2 (05:39→17:12)
[2024-08-16] MEDS: OMEPRAZOLE 20 MG CAPSULE DR 40 MG PO ×2 (05:43→17:12)
[2024-08-16 06:52] LABS: Basophils Percent Auto 0.2 % (0.0-3.0); Eosinophils Percent Auto 2.1 % (0.0-7.0); Hematocrit 33.9 % (33.0-51.0); Hemoglobin* 11.1 gm/dL (12.0-16.0); Immature Granulocytes Pct Auto 0.3 %; Lymphocytes Percent Auto 11.9 % (20-44); Mean Corpuscular HGB Conc 33 gm/dL (32-36); Mean Corpuscular Hemoglobin 31 pg (26-34); Mean Corpuscular Volume 93 fL (80-100); Monocytes Percent Auto 7.9 % (0.0-11.0); Neutrophils Percent Auto 77.6 % (42.0-72.0); Platelet Count* 252 K/uL (140-440); RDW Coefficient of Variation % 13.3 % (11.5-15.5); Red Blood Count 3.63 m/uL (4.00-5.20); White Blood Count* 15.06 K/uL (4.50-11.00)
[2024-08-16 07:06] LABS: Slide Review Reflex No
[2024-08-16 07:18] LABS: Chloride* 100 mmol/L (96-114); Potassium* 3.6 mmol/L (3.6-5.1); Sodium* 136 mmol/L (135-149)
[2024-08-16 07:22] LABS: Anion Gap 10 mEq/L (7-15); Blood Urea Nitrogen* 15 mg/dL (7-30); Calcium* 8.6 mg/dL (8.4-10.6); Carbon Dioxide* 26 mmol/L (20-32); Creatinine* 1.3 mg/dL (0.5-1.5); Est. Creatinine Clearance* 37.16; Estimated Glomerular Filt Rate 44 ml/min; Glucose* 132 mg/dL (60-115)
--- NOTE | 2024-08-16 07:38 | PC.NURSE ---
Pt alert and oriented x3. Afebrile. Pt reports 9/10 soreness/pain behind right ear at surgical incision site and down right side of neck, pain managed with PRN medications. Pt's right ear dressing is CDI. Pt's external urinary catheter is patent and draining. Pt was titrated down from 1L O2 to room air maintaining stats of 90-92%. Pt slept throughout most of night.
[2024-08-16 07:40] LABS: C Reactive Protein* 16.1 mg/dL (0.5-1.0)
[2024-08-16] MEDS: TORSEMIDE 20 MG TABLET 80 MG PO (08:23)
[2024-08-16] MEDS: VENLAFAXINE ER 75 MG CAPSULE 150 MG PO (08:23)
[2024-08-16] MEDS: LOSARTAN POTASSIUM 50 MG TABLET PO (08:24)
[2024-08-16] MEDS: ATORVASTATIN CALCIUM 40 MG TABLET 80 MG PO (08:24)
[2024-08-16] MEDS: SENNOSIDES/DOCUSATE TABLET 1 TAB PO ×2 (08:25→21:01)
[2024-08-16] MEDS: EZETIMIBE 10 MG TABLET PO (08:26)
[2024-08-16] MEDS: SODIUM CHLORIDE 0.9 % (FLUSH) 10 ML SYRINGE 5 ML IVF ×2 (08:27→21:01)
[2024-08-16] MEDS: ACETAMINOPHEN 325 MG TABLET 975 MG PO ×2 (08:42→15:06)
--- NOTE | 2024-08-16 10:39 | PM.IMPN1 ---
Subjective Date Seen: 08/16/24 Interval history: Patient is seen with son, Augustus, at bedside. Reports feeling essentially no better today. Continues to have postoperative pain along the right side of the head as well as a mild headache which resolves with Tylenol. Denies new or worsening dizziness. Confusion has improved but not yet completely resolved according to son. Remains afebrile. Denies chest pain or shortness of breath. Is on room air. Not much of a cough reported. No nausea or vomiting. Tolerating orals but does not have much of an appetite. Currently on vancomycin and cefepime for hospital-acquired pneumonia. Sepsis markers have improved. Awaiting blood culture, MRSA screen. Exam Narrative: Exam Narrative: PHYSICAL EXAM General: Pleasant, conversant, NAD HEENT: Postoperative dressing in place over right side of skull, dry, no drainage, mild swelling, no erythema or streaking. sclera white, EOMI Cardiovascular: RRR, S1S2. No pitting edema Pulmonary: CTA bilaterally without rhonchi, rales, expiratory wheezes. No dyspnea on room air Abdominal: Soft, nondistended, NTTP Neurological: Alert, answering questions appropriately currently, cranial nerves intact, no focal findings Extremities: No gross joint deformity or swelling. AROMI. Neurovascularly intact Skin: Warm, dry. Const: Vital Signs, click to edit/add: Vital Signs - 24 hr 08/15/24 14:13 08/15/24 14:15 08/15/24 14:18 Temperature Pulse Rate 112 H 109 H 108 H Pulse Rate [Pulse Oximeter] Respiratory Rate Blood Pressure 149/64 H Blood Pressure [Ri ght Arm] Blood Pressure [Ri ght Upper Arm] Pulse Oximetry 89 90 93 Oxygen Delivery Me thod Oxygen Flow Rate 08/15/24 14:21 08/15/24 14:30 08/15/24 14:33 Temperature 103.5 F H 102.4 F H Pulse Rate 106 H 110 H Pulse Rate [Pulse Oximeter] 106 H Respiratory Rate 22 25 H 17 Blood Pressure 129/77 Blood Pressure [Ri ght Arm] Blood Pressure [Ri ght Upper Arm] 149/64 H Pulse Oximetry 88 92 91 Oxygen Delivery Me thod Room Air Nasal Cannula Oxygen Flow Rate 2 08/15/24 14:34 08/15/24 14:45 08/15/24 14:47 Temperature Pulse Rate 108 H 108 H 106 H Pulse Rate [Pulse Oximeter] Respiratory Rate 9 L 25 H 22 Blood Pressure 133/70 Blood Pressure [Ri ght Arm] Blood Pressure [Ri ght Upper Arm] Pulse Oximetry 91 92 91 Oxygen Delivery Me thod Nasal Cannula Oxygen Flow Rate 2 08/15/24 15:54 08/15/24 15:55 08/15/24 16:00 Temperature Pulse Rate 104 H 104 H 105 H Pulse Rate [Pulse Oximeter] Respiratory Rate 18 Blood Pressure 128/82 Blood Pressure [Ri ght Arm] Blood Pressure [Ri ght Upper Arm] Pulse Oximetry 90 91 91 Oxygen Delivery Me thod Nasal Cannula Nasal Cannula Oxygen Flow Rate 2 2 08/15/24 16:05 08/15/24 16:06 08/15/24 16:20 Temperature Pulse Rate 104 H 103 H Pulse Rate [Pulse Oximeter] Respiratory Rate Blood Pressure Blood Pressure [Ri ght Arm] Blood Pressure [Ri ght Upper Arm] Pulse Oximetry 91 91 90 Oxygen Delivery Me thod Nasal Cannula Nasal Cannula Oxygen Flow Rate 2 1 08/15/24 16:57 08/15/24 16:59 08/15/24 17:00 Temperature 98.5 F Pulse Rate 104 H 102 H Pulse Rate [Pulse Oximeter] Respiratory Rate 25 H 16 14 Blood Pressure 114/67 Blood Pressure [Ri ght Arm] Blood Pressure [Ri ght Upper Arm] Pulse Oximetry 92 92 Oxygen Delivery Me thod Nasal Cannula Oxygen Flow Rate 2 08/15/24 17:15 08/15/24 17:30 08/15/24 17:45 Temperature Pulse Rate 103 H 100 100 Pulse Rate [Pulse Oximeter] Respiratory Rate 10 L 14 13 Blood Pressure Blood Pressure [Ri ght Arm] Blood Pressure [Ri ght Upper Arm] Pulse Oximetry 91 92 90 Oxygen Delivery Me thod Oxygen Flow Rate 08/15/24 18:00 08/15/24 18:15 08/15/24 18:21 Temperature Pulse Rate 106 H 101 H 99 Pulse Rate [Pulse Oximeter] Respiratory Rate 12 12 13 Blood Pressure 111/66 Blood Pressure [Ri ght Arm] Blood Pressure [Ri ght Upper Arm] Pulse Oximetry 90 91 93 Oxygen Delivery Me thod Nasal Cannula Oxygen Flow Rate 2 08/15/24 18:22 08/15/24 18:28 08/15/24 18:30 Temperature Pulse Rate 99 101 H 101 H Pulse Rate [Pulse Oximeter] Respiratory Rate 13 12 Blood Pressure 123/68 Blood Pressure [Ri ght Arm] Blood Pressure [Ri ght Upper Arm] Pulse Oximetry 91 89 91 Oxygen Delivery Me thod Nasal Cannula Oxygen Flow Rate 2 08/15/24 18:32 08/15/24 18:45 08/15/24 18:47 Temperature Pulse Rate 100 100 99 Pulse Rate [Pulse Oximeter] Respiratory Rate 12 11 L 10 L Blood Pressure 117/63 114/61 Blood Pressure [Ri ght Arm] Blood Pressure [Ri ght Upper Arm] Pulse Oximetry 91 93 91 Oxygen Delivery Me thod Nasal Cannula Oxygen Flow Rate 2 08/15/24 19:00 08/15/24 19:02 08/15/24 19:15 Temperature Pulse Rate 99 98 98 Pulse Rate [Pulse Oximeter] Respiratory Rate 13 17 11 L Blood Pressure 115/66 Blood Pressure [Ri ght Arm] Blood Pressure [Ri ght Upper Arm] Pulse Oximetry 89 91 92 Oxygen Delivery Me thod Oxygen Flow Rate 08/15/24 19:17 08/15/24 19:18 08/15/24 19:30 Temperature Pulse Rate 100 98 99 Pulse Rate [Pulse Oximeter] Respiratory Rate 23 22 32 H Blood Pressure 128/78 Blood Pressure [Ri ght Arm] Blood Pressure [Ri ght Upper Arm] Pulse Oximetry 92 92 90 Oxygen Delivery Me thod Oxygen Flow Rate 08/15/24 19:32 08/15/24 19:33 08/15/24 20:02 Temperature Pulse Rate 99 97 99 Pulse Rate [Pulse Oximeter] Respiratory Rate 18 13 Blood Pressure 129/75 Blood Pressure [Ri ght Arm] Blood Pressure [Ri ght Upper Arm] Pulse Oximetry 93 92 93 Oxygen Delivery Me thod Nasal Cannula Oxygen Flow Rate 2 08/15/24 20:03 08/15/24 20:15 08/15/24 20:17 Temperature Pulse Rate 97 95 94 Pulse Rate [Pulse Oximeter] Respiratory Rate 14 15 Blood Pressure 120/75 120/61 Blood Pressure [Ri ght Arm] Blood Pressure [Ri ght Upper Arm] Pulse Oximetry 92 92 92 Oxygen Delivery Me thod Nasal Cannula Oxygen Flow Rate 2 08/15/24 20:30 08/15/24 20:32 08/15/24 20:33 Temperature Pulse Rate 95 95 95 Pulse Rate [Pulse Oximeter] Respiratory Rate 15 16 16 Blood Pressure 132/72 Blood Pressure [Ri ght Arm] Blood Pressure [Ri ght Upper Arm] Pulse Oximetry 92 91 92 Oxygen Delivery Me thod Oxygen Flow Rate 08/15/24 20:45 08/15/24 20:47 08/15/24 21:00 Temperature Pulse Rate 94 96 95 Pulse Rate [Pulse Oximeter] Respiratory Rate 15 16 Blood Pressure 139/69 Blood Pressure [Ri ght Arm] Blood Pressure [Ri ght Upper Arm] Pulse Oximetry 93 93 94 Oxygen Delivery Me thod Oxygen Flow Rate 08/15/24 21:03 08/15/24 21:04 08/15/24 21:15 Temperature Pulse Rate 94 94 92 Pulse Rate [Pulse Oximeter] Respiratory Rate 14 17 14 Blood Pressure 148/65 H Blood Pressure [Ri ght Arm] Blood Pressure [Ri ght Upper Arm] Pulse Oximetry 93 93 92 Oxygen Delivery Me thod Nasal Cannula Oxygen Flow Rate 2 08/15/24 21:18 08/15/24 22:33 08/15/24 22:33 Temperature 100.5 F H 98.5 F Pulse Rate 97 Pulse Rate [Pulse Oximeter] 88 Respiratory Rate 12 12 12 Blood Pressure 144/65 H Blood Pressure [Ri ght Arm] 128/87 Blood Pressure [Ri ght Upper Arm] Pulse Oximetry 94 94 94 Oxygen Delivery Me thod Nasal Cannula Nasal Cannula Oxygen Flow Rate 2 2 08/15/24 23:25 08/16/24 01:47 08/16/24 02:22 Temperature 98.8 F Pulse Rate Pulse Rate [Pulse Oximeter] 89 Respiratory Rate 20 18 Blood Pressure Blood Pressure [Ri ght Arm] 152/82 H Blood Pressure [Ri ght Upper Arm] Pulse Oximetry 90 92 Oxygen Delivery Me thod Nasal Cannula Oxygen Flow Rate 0.5 08/16/24 07:00 08/16/24 07:00 08/16/24 07:00 Temperature 99 F Pulse Rate Pulse Rate [Pulse Oximeter] 95 95 Respiratory Rate 16 16 16 Blood Pressure Blood Pressure [Ri ght Arm] 149/84 H Blood Pressure [Ri ght Upper Arm] Pulse Oximetry 92 92 Oxygen Delivery Me thod Room Air Room Air Oxygen Flow Rate Labs Labs: Laboratory Results - last 24 hr 08/15/24 08/15/24 08/15/24 14:20 14:21 16:20 WBC 15.57 H RBC 3.84 L Hgb 11.7 L Hct 36.0 MCV 94 MCH 31 MCHC 33 RDW Coeff of Isiah 13.2 Plt Count 261 Neut % (Auto) 85.2 H Lymph % (Auto) 7.2 L [place] % (Auto) 6.6 Eos % (Auto) 0.6 Baso % (Auto) 0.2 Neut # (Auto) 13.30 H Lymph # (Auto) 1.10 [place] # (Auto) 1.00 H Eos # (Auto) 0.10 Baso # (Auto) 0.00 Abs Immat Gran (auto) 0.00 Imm/Tot Granulo (auto) 0.2 VBG pH VBG pCO2 VBG pO2 VBG HCO3 Sodium 132 L Potassium 4.3 Chloride 95 L Carbon Dioxide 27 Anion Gap 10 BUN 16 Creatinine 1.4 Estimated Creat Clear 37.18 Estimated GFR 40 Glucose 169 H Lactate 1.9 Calcium 9.1 Total Bilirubin 0.8 AST 32 ALT 26 Alkaline Phosphatase 68 Troponin I < 0.01 L C-Reactive Protein 2.8 H Total Protein 7.7 Albumin 4.7 Procalcitonin 0.21 Urine Color Light yellow Urine Appearance Clear Urine pH 6.0 Ur Specific [place] 1.010 Urine Protein Negative Urine Glucose (UA) Negative Urine Ketones Negative Urine Blood Negative Urine Nitrite Negative Urine Bilirubin Negative Urine Urobilinogen 0.2 Ur Leukocyte Esterase Negative SARS-CoV-2 (PCR) Negative SARS-CoV-2 Influenza Type A (PCR) Negative PCR FLU A Influenza Type B (PCR) Negative PCR FLU B RSV (PCR) Negative PCR RSV Lab Acknowledgement 08/15/24 08/16/24 23:09 05:56 WBC 15.06 H RBC 3.63 L Hgb 11.1 L Hct 33.9 MCV 93 MCH 31 MCHC 33 RDW Coeff of Isiah 13.3 Plt Count 252 Neut % (Auto) 77.6 H Lymph % (Auto) 11.9 L [place] % (Auto) 7.9 Eos % (Auto) 2.1 Baso % (Auto) 0.2 Neut # (Auto) 11.70 H Lymph # (Auto) 1.80 [place] # (Auto) 1.20 H Eos # (Auto) 0.30 Baso # (Auto) 0.00 Abs Immat Gran (auto) 0.00 Imm/Tot Granulo (auto) 0.3 VBG pH Cancelled VBG pCO2 Cancelled VBG pO2 Cancelled VBG HCO3 Cancelled Sodium 136 Potassium 3.6 Chloride 100 Carbon Dioxide 26 Anion Gap 10 BUN 15 Creatinine 1.3 Estimated Creat Clear 37.16 Estimated GFR 44 Glucose 132 H Lactate Calcium 8.6 Total Bilirubin AST ALT Alkaline Phosphatase Troponin I C-Reactive Protein 16.1 H Total Protein Albumin Procalcitonin Urine Color Urine Appearance Urine pH Ur Specific [place] Urine Protein Urine Glucose (UA) Urine Ketones Urine Blood Urine Nitrite Urine Bilirubin Urine Urobilinogen Ur Leukocyte Esterase SARS-CoV-2 (PCR) Influenza Type A (PCR) Influenza Type B (PCR) RSV (PCR) Lab Acknowledgement Test Added Assessment and Plan Assessment and plan (1) Sepsis: Problem comment: - likely secondary to pneumonia, less likely would be FLEXIBLE MACHINING SYSTEM MACHINIST shunt infection - continue IV vancomycin and cefepime - WBC trending down, CRP trending up. Vitally stable - BC pending, MRSA screen pending Status: Acute (2) Acute hypoxemic respiratory failure: Problem comment: - secondary to pneumonia - patient also has a history of COPD, CHF, and obstructive sleep apnea not using CPAP. I am not seeing signs of COPD or CHF exacerbation. 08/16 on room air -incentive spirometry, ALANA Jolly p.r.n. -RT for pulmonary support Status: Acute (3) Pneumonia: Problem comment: - suspect healthcare acquired, was discharged from [facility] this morning. She has also been in an out of the hospital recently for acute parotiditis. - IV vancomycin and cefepime (confusion improving not yet resolved) to cover - strep pneumo/Legionella ordered - CT shows right lower lobe dependent predominance and right upper lobe dependent predominant areas of patchy airspace disease. Differential considerations include infection versus aspiration. Recommending repeat unenhanced CT chest in 3 months to document resolution Status: Acute (4) S/P FLEXIBLE MACHINING SYSTEM MACHINIST shunt: Problem comment: - placed 08/14/24 at [facility] for normal pressure hydrocephalus - imaging reviewed. FLEXIBLE MACHINING SYSTEM MACHINIST shunt catheter extends inferiorly off the [id number] within the peritoneum. Subcutaneous gas tracking anteriorly and inferiorly along the soft tissues likely postprocedural. Right-sided FLEXIBLE MACHINING SYSTEM MACHINIST shunt catheter extending inferiorly in the soft tissues. No discrete kinking or catheter fracture Status: Acute (5) Normal pressure hydrocephalus: Problem comment: - with chronic dizziness, urinary urgency & cognitive dysfunction. FLEXIBLE MACHINING SYSTEM MACHINIST shunt placement 08/14/24 [facility]. 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, monitor Status: Chronic (8) Primary hypertension: Problem comment: - pressures stable - continue home meds Status: Chronic (9) Mixed hyperlipidemia: Problem comment: - continue statin Status: Chronic (10) Chronic diastolic heart failure: Problem comment: - stable, continue home medications, monitor for fluid overload Status: Chronic (11) Obstructive sleep apnea: Problem comment: - Stopped using CPAP years ago Status: Chronic (12) COPD (chronic obstructive pulmonary disease): Problem comment: - stable, without exacerbation, remains on room air Status: Chronic (13) Pulmonary nodule: Problem comment: - Stable per [facility] 05/2022 CT. Recommend annual screening w/ Low-Dose CT. - Seen on NH&C 10/10/23 CT. - Seen on CT chest 08/15/24 Status: Acute Total Time Spent Total Time Spent: Today I spent 45 minutes seeing the patient, discussing the patient with ER staff, reviewing Expanse and Epic notes/diagnostics, discussing the care plan with our team that includes social work, PT/OT, pharmacy, RT, correction and documenting my impressions and plan in the medical record.
[2024-08-16 11:11] LABS: Legionella pneumo Ag Urine L. pneumo Negative (Negative); S pneumo Ag Urine S. pneumo Negative (Negative)
[2024-08-16] MEDS: polyethylene glycoL 3350 17 GM PACK PO (11:44)
--- NOTE | 2024-08-16 14:08 | RESP.RT ---
pt seen, BBS clear Pulmonary effort easy no distress, RR 16 RA SPO2 90-92%. pt has a diagnosis of JOSIAH, does not use CPAP. Continue home COPD meds.
--- NOTE | 2024-08-16 14:21 | CRLHL7_ITS ---
For Patients: As a result of the Cures Act, medical imaging exams and procedure reports are released immediately into your electronic medical record. You may view this report before your referring provider. If you have questions, please contact your health care provider. INDICATION: Recent shunt placement. Right upper chest pain. TECHNIQUE: Chest 1 portable view. COMPARISON: None. FINDINGS: No pneumothorax or pleural effusion. Lungs are clear. Cardiac and mediastinal contours are within normal limits. Shunt catheter coursing over the right chest as imaged appears intact. Upper abdomen as imaged is unremarkable. Remote right rib fractures are unchanged. Shoulder arthropathy, as before. IMPRESSION: No evidence of acute cardiopulmonary disease. Dictated by Zack Farooq MD @ 08/16/2024 3:33:24 PM (Electronically Signed)
--- NOTE | 2024-08-16 16:37 | P.CCN_ITS ---
Subjective Subjective Time Seen by Provider: 14:30 Date Seen: 08/16/24 Interval history: Complains of right upper chest pain, sharp and brief. She notes dilaudid is helping and pain is 3-4/10. Denies dyspnea. This pain is similar to what she was having yesterday as well. The patient's 2 daughters were walking in his I was leaving her room and I gave them an update as well. We discussed that she had a lot of imaging yesterday, including imaging of her chest and HOME CARE SCHEDULER shunt which did not indicate any problems. Objective Objective Data Details: T 98.9F, BP 115/53, HR 93, RR 18, O2 sat 94% on RA General: No acute distress. Awake, alert, oriented x3. No pallor. No jaundice. HOME CARE SCHEDULER shunt Oropharynx: Clear. Mucous membranes moist. Cardiovascular: Regular rate and rhythm. No murmurs, gallops, or rubs. Respiratory: Clear to auscultation bilaterally. No wheezes or crackles. No crepitus, erythema, or induration on upper chest or shoulders. Abdomen: Bowel sounds present. Soft, nondistended, nontender. Trop <0.01 08/16/2024 EKG: Sinus rhythm with occasional PVCs, 94 beats per minute, low- voltage QRS, nonspecific intraventricular conduction delay. QRS interval is 120 milliseconds. EKG is similar to yesterday's EKG, QRS then was 108 milliseconds. Ordering Physician: Caprice De Jesus M.D. Date of Service: 08/16/24 Procedure(s): XR chest 1V portable Accession Number(s): [id number] cc: Caprice De Jesus M.D.; Walter Mcgovern M.D.~ For Patients: As a result of the 21st Century Cures Act, medical imaging exams and procedure reports are released immediately into your electronic medical record. You may view this report before your referring provider. If you have questions, please contact your health care provider. INDICATION: Recent shunt placement. Right upper chest pain. TECHNIQUE: Chest 1 portable view. COMPARISON: None. FINDINGS: No pneumothorax or pleural effusion. Lungs are clear. Cardiac and mediastinal contours are within normal limits. Shunt catheter coursing over the right chest as imaged appears intact. Upper abdomen as imaged is unremarkable. Remote right rib fractures are unchanged. Shoulder arthropathy, as before. IMPRESSION: No evidence of acute cardiopulmonary disease. Dictated by Zack Farooq MD @ 08/16/2024 3:33:24 PM (Electronically Signed) Assessment and Plan Assessment and plan (1) Chest pain: Problem comment: - RU chest pain, sharp, no dyspnea, no crepitus, CXR okay (no free air or PNA), EKG and trop okay. Status: Acute
[2024-08-16 16:44] LABS: Troponin I* < 0.01 ng/mL (0.01-0.04)
[2024-08-16] MEDS: HYDROmorphone 0.5 mg/0.5 ml inj IVP (18:31)
--- NOTE | 2024-08-16 19:11 | PC.NURSE ---
End of shift: Pt remain AxO, with forgetfulness. Dressing behind right ear is D/I with a small amount of dried blood drainage. Patient is on RA. Denies N/V/SOB. Patient rates pain varying from 9-10 at the shunt incision site. Pain meds offered and utilized with little relief. Patient complained of pain behind left ear at surgical site and left chest. EKG, troponin and chest xray completed. up with 1-2 assist, walker and gait belt. Incontinent of bladder during shift. Up in recliner for meals, tolerating regular diet well.
[2024-08-16] MEDS: INSULIN ASPART 100 UNIT/ML SUBCUT (21:00)
[2024-08-16] MEDS: VANCOMYCIN 1.5 GM/300 ML 1.5 GM/300 ML PIGGYBACK IVPB (22:33)
[2024-08-16] MEDS: NON-FORMULARY MEDICATION (Tiotropium Bromide [Spiriva Respimat] 2.5 mcg/actuation mist) 2 EACH IH (22:40)
[2024-08-17] VITALS (12 sets, daily range): BP systolic 102–124; BP diastolic 53–92; PULSE 70–93; RESP 16–18; TEMP 36.4–37.7; O2SAT 82–95
[2024-08-17] MEDS: SODIUM CHLORIDE 0.9 % (FLUSH) 10 ML SYRINGE 5 ML IVF ×3 (00:22→21:27)
[2024-08-17] MEDS: CEFEPIME HCL 2 GM in 0.9 % SODIUM CHLORIDE Mini-bag 100 ML IVPB ×2 (05:00→16:38)
[2024-08-17] MEDS: OMEPRAZOLE 20 MG CAPSULE DR 40 MG PO ×2 (05:42→17:31)
--- NOTE | 2024-08-17 06:28 | PC.NURSE ---
End of shift note [id number]: PRN Dilaudid administered for c/o generalized pain which was effective upon followup. No confusion noted this shift. Pt has maintained O2 sats per order on 1 LPM overnight. Blood glucose of 184 last evening with Novolog insulin administered per SS order. Pt tolerating regular diet. She transfers/ambulates to and from bathroom using SBA, rolling walker and gait belt. Pt continent of bladder using bathroom. Pt endorses a dry nonproductive cough at baseline due to COPD. Bed alarm on and call light within reach. ?
[2024-08-17 07:06] LABS: Basophils Percent Auto 0.2 % (0.0-3.0); Hematocrit 32.4 % (33.0-51.0); Hemoglobin* 10.9 gm/dL (12.0-16.0); Immature Granulocytes Pct Auto 0.2 %; Lymphocytes Percent Auto 16.1 % (20-44); Mean Corpuscular HGB Conc 34 gm/dL (32-36); Mean Corpuscular Hemoglobin 31 pg (26-34); Mean Corpuscular Volume 92 fL (80-100); Monocytes Percent Auto 8.3 % (0.0-11.0); Neutrophils Percent Auto 71.2 % (42.0-72.0); Platelet Count* 254 K/uL (140-440); Red Blood Count 3.51 m/uL (4.00-5.20); White Blood Count* 12.35 K/uL (4.50-11.00)
[2024-08-17 07:07] LABS: Slide Review Reflex No
[2024-08-17 07:17] LABS: Chloride* 101 mmol/L (96-114); Sodium* 138 mmol/L (135-149)
[2024-08-17 07:18] LABS: Potassium* 3.8 mmol/L (3.6-5.1)
[2024-08-17 07:21] LABS: Anion Gap 11 mEq/L (7-15); Blood Urea Nitrogen* 18 mg/dL (7-30); Calcium* 8.8 mg/dL (8.4-10.6); Carbon Dioxide* 26 mmol/L (20-32); Creatinine* 1.4 mg/dL (0.5-1.5); Estimated Glomerular Filt Rate 40 ml/min; Glucose* 140 mg/dL (60-115)
[2024-08-17 07:43] LABS: C Reactive Protein* 15.8 mg/dL (0.5-1.0)
[2024-08-17] MEDS: polyethylene glycoL 3350 17 GM PACK PO (08:40)
[2024-08-17] MEDS: EZETIMIBE 10 MG TABLET PO (08:41)
[2024-08-17] MEDS: TORSEMIDE 20 MG TABLET 80 MG PO (08:41)
[2024-08-17] MEDS: LOSARTAN POTASSIUM 50 MG TABLET PO (08:42)
[2024-08-17] MEDS: HYDROmorphone 2 MG TABLET PO ×3 (08:43→21:23)
[2024-08-17] MEDS: VENLAFAXINE ER 75 MG CAPSULE 150 MG PO (08:43)
[2024-08-17] MEDS: SENNOSIDES/DOCUSATE TABLET 1 TAB PO ×2 (08:44→21:23)
[2024-08-17] MEDS: ATORVASTATIN CALCIUM 40 MG TABLET 80 MG PO (08:45)
--- NOTE | 2024-08-17 10:31 | P.IMPN_ITS ---
Assessment and Plan Assessment and plan (1) Sepsis: Problem comment: - likely secondary to pneumonia, less likely would be VALUE STREAM COACH shunt infection - continue IV vancomycin and cefepime - WBC trending down, CRP trending up. Vitally stable - BC pending, MRSA screen pending 08/17 BC NGTD, MRSA neg. T 99.9 overnight otherwise clinically improving. D/c vancomycin. Continue cefepime Status: Resolved (2) Acute hypoxemic respiratory failure: Problem comment: - secondary to pneumonia - patient also has a history of COPD, CHF, and obstructive sleep apnea not using CPAP. I am not seeing signs of COPD or CHF exacerbation. 08/16 on room air -incentive spirometry, ALANA Jolly p.r.n. -RT for pulmonary support RESOLVED Status: Resolved (3) Pneumonia: Problem comment: - suspect healthcare acquired, was discharged from [facility] this morning. She has also been in an out of the hospital recently for acute parotiditis and on abx within the past 90 days - IV vancomycin and cefepime (confusion improving not yet resolved) to cover - incentive spirometry, aerobika - strep pneumo/Legionella negative, MRSA negative, BC NGTD - CT shows right lower lobe dependent predominance and right upper lobe dependent predominant areas of patchy airspace disease. Differential considerations include infection versus aspiration. Recommending repeat unenhanced CT chest in 3 months to document resolution 08/17 D/c vancomycin. Continue cefepime. Possible d/c to home tomorrow pending ongoing clinical improvement. Transition to oral levofloxacin. Discussed with pharmacy Status: Acute (4) S/P VALUE STREAM COACH shunt: Problem comment: - placed 08/14/24 at [facility] for normal pressure hydrocephalus - imaging reviewed. VALUE STREAM COACH shunt catheter extends inferiorly off the [id number] within the peritoneum. Subcutaneous gas tracking anteriorly and inferiorly along the soft tissues likely postprocedural. Right-sided VALUE STREAM COACH shunt catheter extending inferiorly in the soft tissues. No discrete kinking or catheter fracture 08/17 Had brief episode of right upper chest pain yesterday. CXR without acute concerns. Pain has since resolved without recurrence Tylenol scheduled for postoperative pain. Ice pack to right side of neck Q shift. Has a supportive pillow Per [facility], dressings to be removed today. Okay for quick shower Status: Acute (5) Normal pressure hydrocephalus: Problem comment: - with chronic dizziness, urinary urgency & cognitive dysfunction. VALUE STREAM COACH shunt placement 08/14/24 [facility]. 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 manager 1.3-1.6, monitor Status: Chronic (8) Primary hypertension: Problem comment: - pressures stable - continue home meds Status: Chronic (9) Mixed hyperlipidemia: Problem comment: - continue statin Status: Chronic (10) Chronic diastolic heart failure: Problem comment: - stable, continue home medications, monitor for fluid overload Status: Chronic (11) Obstructive sleep apnea: Problem comment: - Stopped using CPAP years ago Status: Chronic (12) COPD (chronic obstructive pulmonary disease): Problem comment: - stable, without exacerbation, remains on room air Status: Chronic (13) Pulmonary nodule: Problem comment: - Stable per [facility] 05/2022 CT. Recommend annual screening w/ Low-Dose CT. - Seen on NH&C 10/10/23 CT. - Seen on CT chest 08/15/24 Status: Acute Plan 08/17 - remove VALUE STREAM COACH shunt dressings, shower. Encourage ambulation in the hallways - PT/OT to evaluate. Continue incentive spirometry/aerobika. Deescalating IV antibiotics. Plan to transition to oral antibiotics pending ongoing clinical improvement. Possible discharge to home tomorrow. Total Time Spent Total Time Spent: Today I spent 45 minutes seeing the patient, discussing the patient with ER staff, reviewing [facility] and Epic notes/diagnostics, discussing the care plan with our team that includes social work, PT/OT, pharmacy, RT, penitentiary and documenting my impressions and plan in the medical record. Subjective Date Seen: 08/17/24 Interval history: Patient is seen with daughter, Lea, at bedside. Patient reports feeling better this morning which is an improvement from yesterday. Did have an episode of right upper chest pain yesterday which has since resolved without recurrence. CXR showed no acute findings or concerns at the VALUE STREAM COACH shunt site. Had a temperature 99.9? earlier this morning. Blood cultures and MRSA have been negative thus far. Continues with head pains postoperatively. Has a supportive pillow she has been using. Tolerating orals, slight improvement in appetite, without nausea or vomiting. Last bowel movement was Wednesday, she is on stool softener twice a day as well as now MiraLax. Has only been ambulating within her room. Exam Narrative: Exam Narrative: PHYSICAL EXAM General: Pleasant, conversant, NAD HEENT: Postoperative dressing in place over right side of skull, dry, no drainage, mild swelling, no erythema or streaking. Cardiovascular: RRR, S1S2. No pitting edema Pulmonary: CTA bilaterally without rhonchi, rales, expiratory wheezes. No dyspnea on room air Abdominal: Soft, nondistended, NTTP Neurological: Alert, answering questions appropriately currently, cranial nerves intact, no focal findings Extremities: No gross joint deformity or swelling. AROMI. Neurovascularly intact Skin: Warm, dry. Const: Vital Signs, click to edit/add: Vital Signs - 24 hr 08/16/24 11:50 08/16/24 15:00 08/16/24 15:00 Temperature 98.5 F 98.9 F Pulse Rate [Pulse Oximeter] 90 93 93 Respiratory Rate 16 18 18 Blood Pressure [Ri ght Arm] 121/63 115/53 L Pulse Oximetry 90 94 Oxygen Delivery Me thod Room Air Room Air 08/16/24 15:00 08/16/24 20:06 08/16/24 22:37 Temperature 99.4 F 98.2 F Pulse Rate [Pulse Oximeter] 91 85 Respiratory Rate 18 18 18 Blood Pressure [Ri ght Arm] 116/75 140/69 H Pulse Oximetry 94 100 100 Oxygen Delivery Nh thod Room Air Room Air Room Air 08/16/24 22:39 08/16/24 23:00 08/17/24 00:28 Temperature Pulse Rate [Pulse Oximeter] 85 Respiratory Rate 18 18 Blood Pressure [Ri ght Arm] Pulse Oximetry 100 87 L Oxygen Delivery Nh thod Room Air Room Air 08/17/24 00:32 08/17/24 01:00 08/17/24 03:57 Temperature 99.9 F H Pulse Rate [Pulse Oximeter] 93 Respiratory Rate 16 Blood Pressure [Ri ght Arm] 124/66 Pulse Oximetry 91 91 91 Oxygen Delivery Nh thod Room Air Room Air 08/17/24 05:57 08/17/24 07:30 08/17/24 08:00 Temperature 99.2 F 99.2 F Pulse Rate [Pulse Oximeter] 86 86 Respiratory Rate 16 16 Blood Pressure [Ri ght Arm] 115/69 Pulse Oximetry 93 Oxygen Delivery Me thod Room Air 08/17/24 08:00 Temperature Pulse Rate [Pulse Oximeter] Respiratory Rate 16 Blood Pressure [Ri ght Arm] Pulse Oximetry 93 Oxygen Delivery Me thod Room Air Labs Labs: Laboratory Results - last 24 hr 08/15/24 08/16/24 08/16/24 16:20 10:35 16:05 WBC RBC Hgb Hct MCV MCH MCHC RDW Coeff of Isiah Plt Count Neut % (Auto) Lymph % (Auto) Imperial % (Auto) Eos % (Auto) Baso % (Auto) Neut # (Auto) Lymph # (Auto) Imperial # (Auto) Eos # (Auto) Baso # (Auto) Abs Immat Gran (auto) Imm/Tot Granulo (auto) Sodium Potassium Chloride Carbon Dioxide Anion Gap BUN Creatinine Estimated Creat Clear Estimated GFR Glucose Calcium Troponin I < 0.01 L C-Reactive Protein Urine L. pneumophilia Ag L. pneumo Negative Urine Strep pneumoniae Ag S. pneumo Negative Lab Acknowledgement Test Added 08/17/24 06:19 WBC 12.35 H RBC 3.51 L Hgb 10.9 L Hct 32.4 L MCV 92 MCH 31 MCHC 34 RDW Coeff of Isiah 13.0 Plt Count 254 Neut % (Auto) 71.2 Lymph % (Auto) 16.1 L Imperial % (Auto) 8.3 Eos % (Auto) 4.0 Baso % (Auto) 0.2 Neut # (Auto) 8.80 H Lymph # (Auto) 2.00 Imperial # (Auto) 1.00 H Eos # (Auto) 0.50 Baso # (Auto) 0.00 Abs Immat Gran (auto) 0.00 Imm/Tot Granulo (auto) 0.2 Sodium 138 Potassium 3.8 Chloride 101 Carbon Dioxide 26 Anion Gap 11 BUN 18 Creatinine 1.4 Estimated Creat Clear 34.50 Estimated GFR 40 Glucose 140 H Calcium 8.8 Troponin I C-Reactive Protein 15.8 H Urine L. pneumophilia Ag Urine Strep pneumoniae Ag Lab Acknowledgement
[2024-08-17] MEDS: ACETAMINOPHEN 325 MG TABLET 975 MG PO ×3 (10:35→22:41)
--- NOTE | 2024-08-17 14:45 | PC.NURSE ---
End of shift note: Pt is AxO with intermittent forgetfulness. Denies N/V/SOB. On RA. Tolerating Regular diet well. IV is SL in R forearm. Dressing behind left ear was removed. Incision is closed and well approximated. 2 lap sites on the upper abdomen dressing was removed and incisions are closed and well approximated. No BM this shift. Patient rated pain from a 8-5 pain meds offered and utilized with relief. Ambulates SBA, GB and walker. Personal cares completed. Pt able to shower with assist.
--- NOTE | 2024-08-17 14:56 | PC.SOCIAL ---
Discharge planning: convention worker met with the pt and her daughter, Lea, to discuss home health care per the daughter's request. Pt's daughter was wondering if the pt could get a home health aide to assist her with bathing twice a week starting next week when she goes back to living with her brother. Pt will stay with her daughter this weekend after she discharges. Discharge is planned for tomorrow(Wednesday). convention worker explained that pt wasn't being recommended for PT/OT or [facility] home care, at this time, and that Medicare typically will not cover just a home health bath aide. convention worker did provide the pt and the daughter with a list of [employer] Care Agencies for their reference, but pt's daughter stated that they don't plan to private pay for any in home services. Pt does live with her brother, but the pt does not feel comfortable with her brother assisting her with a shower. Social work to follow-up as needed.
[2024-08-17] MEDS: AMITRIPTYLINE 25 MG TABLET 150 MG PO (21:23)
[2024-08-17] MEDS: INSULIN ASPART 100 UNIT/ML SUBCUT (21:25)
--- NOTE | 2024-08-17 22:05 | PC.NURSE ---
End of Shift: Patient pleasant and cooperative. Alert and oriented. Afebrile. Rating pain 6-8/10 and PRN Dilaudid given x2. Up to chair and bathroom with SBA and walker. Incision above right ear and 2 lap sites C/D/I. Tolerating regular diet with no nausea. SBP 102-105, updated MD and no new orders at this time.
[2024-08-17] MEDS: NON-FORMULARY MEDICATION (Tiotropium Bromide [Spiriva Respimat] 2.5 mcg/actuation mist) 2 EACH IH (22:41)
[2024-08-18 01:00] VITALS: O2SAT 93
[2024-08-18 02:50] VITALS: BP 109/51; PULSE 76; RESP 18; TEMP 36.4; O2SAT 93
[2024-08-18] MEDS: ACETAMINOPHEN 325 MG TABLET 975 MG PO ×2 (04:47→10:49)
[2024-08-18] MEDS: CEFEPIME HCL 2 GM in 0.9 % SODIUM CHLORIDE Mini-bag 100 ML IVPB (04:48)
[2024-08-18] MEDS: OMEPRAZOLE 20 MG CAPSULE DR 40 MG PO (06:08)
--- NOTE | 2024-08-18 06:56 | PC.NURSE ---
End of shift [id number]: Pt AxOx4,?slept for the majority of the shift. Pt requested to sleep in chair throughout the night. Sats maintained above 90 on RA. Denies pain, CP, SOB, and nausea. Op site wounds CDI. Call light within reach.?
[2024-08-18 07:18] LABS: Chloride* 102 mmol/L (96-114); Potassium* 3.9 mmol/L (3.6-5.1); Sodium* 140 mmol/L (135-149)
[2024-08-18 07:19] LABS: Basophils Absolute Auto 0.05 K/uL (0.00-0.30); Basophils Percent Auto 0.6 % (0.0-3.0); Eosinophils Percent Auto 5.6 % (0.0-7.0); Hemoglobin* 11.4 gm/dL (12.0-16.0); Immature Granulocytes Abs Auto 0.02 K/uL (0.00-0.30); Immature Granulocytes Pct Auto 0.2 %; Lymphocytes Percent Auto 19.9 % (20-44); Mean Corpuscular HGB Conc 34 gm/dL (32-36); Mean Corpuscular Hemoglobin 31 pg (26-34); Mean Corpuscular Volume 93 fL (80-100); Monocytes Percent Auto 9.5 % (0.0-11.0); Neutrophils Absolute Auto 5.72 K/uL (1.7-7.0); Neutrophils Percent Auto 64.2 % (42.0-72.0); Platelet Count* 290 K/uL (140-440); Red Blood Count 3.67 m/uL (4.00-5.20); White Blood Count* 8.91 K/uL (4.50-11.00)
[2024-08-18 07:21] LABS: Anion Gap 11 mEq/L (7-15); Blood Urea Nitrogen* 21 mg/dL (7-30); Calcium* 9.3 mg/dL (8.4-10.6); Carbon Dioxide* 27 mmol/L (20-32); Creatinine* 1.6 mg/dL (0.5-1.5); Est. Creatinine Clearance* 30.19; Estimated Glomerular Filt Rate 34 ml/min; Glucose* 132 mg/dL (60-115)
[2024-08-18 07:24] LABS: C Reactive Protein* 7.6 mg/dL (0.5-1.0)
[2024-08-18 07:30] LABS: Slide Review Reflex No
[2024-08-18 07:57] VITALS: BP 125/64; PULSE 80; RESP 16; TEMP 36.6; O2SAT 94
[2024-08-18] MEDS: HYDROmorphone 2 MG TABLET PO (08:00)
[2024-08-18] MEDS: ATORVASTATIN CALCIUM 40 MG TABLET 80 MG PO (09:01)
[2024-08-18] MEDS: VENLAFAXINE ER 75 MG CAPSULE 150 MG PO (09:02)
[2024-08-18] MEDS: SENNOSIDES/DOCUSATE TABLET 1 TAB PO (09:02)
[2024-08-18] MEDS: EZETIMIBE 10 MG TABLET PO (09:02)
[2024-08-18] MEDS: LOSARTAN POTASSIUM 50 MG TABLET PO (09:02)
[2024-08-18] MEDS: polyethylene glycoL 3350 17 GM PACK PO (09:02)
[2024-08-18] MEDS: TORSEMIDE 20 MG TABLET 80 MG PO (09:02)
[2024-08-18] MEDS: SODIUM CHLORIDE 0.9 % (FLUSH) 10 ML SYRINGE 5 ML IVF (09:08)
[2024-08-18] MEDS: CARBOXYMETHYLCELLULOSE (REFRESH PLUS) TEARS 1 DROP EYE-BOTH (09:40)
--- NOTE | 2024-08-18 10:38 | PC.SOCIAL ---
Discharge planning: call worker spoke with the provider on duty this morning and then informed the pt and her daughter that pt will not qualify for just AUG[employer] MILL OPERATOR with home care due to pt not qualifying for home care PT or fdc. Pt would need to qualify for either home care PT or fdc in order to get a AUG[employer] MILL OPERATOR. Pt and her daughter understood. Social work to follow-up as needed.
--- NOTE | 2024-08-18 11:01 | P.DS_ITS ---
DS: Providers Provider Date Seen: 08/18/24 Date of admission: 08/15/24 23:09 Primary care physician: Walter Mcgovern MD Admitting Clinician: Caprice De Jesus MD Consults: 08/16/24 00:10 Consult to Respiratory Therapy [CONS] Routine Comment: Reason(s) for RT Consult:: Consult 08/17/24 10:17 Consult to Occupational Therapy [CONS] Routine Comment: Reason(s) for OT Consult:: Evaluate and Treat Any Restrictions?:: No Restrictions Consult to Physical Therapy [CONS] Routine Comment: Reason(s) for PT Consult:: Evaluate and Treat Any Restrictions?:: No Restrictions Consult to Band Tier [CONS] Routine Comment: Reason for Consult:: Social Service Consult Attending Physician on discharge: Leilani Carrion [facility], PA-C [facility] Date of Discharge: 08/18/24 DS: Diagnosis Discharge Diagnosis (1) Sepsis: Status: Resolved Problem details: - likely secondary to pneumonia, less likely would be ACCOUNTING SYSTEMS MANAGER shunt infection - continue IV vancomycin and cefepime - WBC trending down, CRP trending up. Vitally stable - BC pending, MRSA screen pending 08/17 BC NGTD, MRSA neg. T 99.9 overnight otherwise clinically improving. D/c vancomycin. Continue cefepime RESOLVED (2) Acute hypoxemic respiratory failure: Status: Resolved Problem details: - secondary to pneumonia - patient also has a history of COPD, CHF, and obstructive sleep apnea not using CPAP. I am not seeing signs of COPD or CHF exacerbation. 08/16 on room air -incentive spirometry, ALANA Jolly p.r.n. -RT for pulmonary support RESOLVED (3) Pneumonia: Status: Acute Problem details: - suspect healthcare acquired, was discharged from [facility] this morning. She has also been in an out of the hospital recently for acute parotiditis and on abx within the past 90 days - IV vancomycin and cefepime (confusion improving not yet resolved) to cover - incentive spirometry, aerobika - strep pneumo/Legionella negative, MRSA negative, BC NGTD - CT shows right lower lobe dependent predominance and right upper lobe dependent predominant areas of patchy airspace disease. Differential considerations include infection versus aspiration. Recommending repeat unenhanced CT chest in 3 months to document resolution 08/17 D/c vancomycin. Continue cefepime. Possible d/c to home tomorrow pending ongoing clinical improvement. Transition to oral levofloxacin. Discussed with pharmacy Admitted with concern for hospital-acquired pneumonia, given recurrent hospitalizations over the last 90 days. Started on vancomycin and cefepime. MRSA negative. Vancomycin was discontinued. Continued on cefepime until day of discharge. Transitioned to oral levofloxacin 750 mg Q 48 hours for renal dosing to complete 5 doses. This was discussed with pharmacy. Encouraged to continue ambulation, use of incentive spirometer. Close outpatient follow-up and recheck of CBC and BMP with PCP next week. As noted on CT, repeat CT chest in 3 months for resolution. (4) S/P ACCOUNTING SYSTEMS MANAGER shunt: Status: Acute Problem details: - placed 08/14/24 at [facility] for normal pressure hydrocephalus - imaging reviewed. ACCOUNTING SYSTEMS MANAGER shunt catheter extends inferiorly off the [id number] within the peritoneum. Subcutaneous gas tracking anteriorly and inferiorly along the soft tissues likely postprocedural. Right-sided ACCOUNTING SYSTEMS MANAGER shunt catheter extending inferiorly in the soft tissues. No discrete kinking or catheter fracture 08/17 Had brief episode of right upper chest pain yesterday. CXR without acute concerns. Pain has since resolved without recurrence Tylenol scheduled for postoperative pain. Ice pack to right side of neck Q shift. Has a supportive pillow Per [facility], dressings to be removed today. Okay for quick shower ACCOUNTING SYSTEMS MANAGER shunt postoperatively remains stable. Dressings were removed per [facility] instructions on 08/17/2024. Surgical wounds appear to be healing appropriately. Outpatient follow-up with surgical team is scheduled for August. (5) Normal pressure hydrocephalus: Status: Chronic Problem details: - with chronic dizziness, urinary urgency & cognitive dysfunction. ACCOUNTING SYSTEMS MANAGER shunt placement 08/14/24 [facility]. (6) Type 2 diabetes mellitus, without long-term current use of insulin: Status: Chronic Problem details: - Has been diet controlled and on Ozempic in the past, but does [facility] has been on hold recently for ACCOUNTING SYSTEMS MANAGER shunt - glucose ACHS, insulin sliding scale Patient to resume home medications on discharge. (7) Stage 3b chronic kidney disease: Status: Chronic Problem details: - baseline electronic component processor 1.3-1.6, monitor Creatinine remained within baseline. 1.6 on discharge. Renally dosing oral levofloxacin. Recheck BMP with PCP next week. (8) Primary hypertension: Status: Chronic Problem details: - pressures stable - continue home meds (9) Mixed hyperlipidemia: Status: Chronic Problem details: - continue statin (10) Chronic diastolic heart failure: Status: Chronic Problem details: - stable, continue home medications, monitor for fluid overload (11) Obstructive sleep apnea: Status: Chronic Problem details: - Stopped using CPAP years ago (12) COPD (chronic obstructive pulmonary disease): Status: Chronic Problem details: - stable, without exacerbation, remains on room air (13) Pulmonary nodule: Status: Acute Problem details: - Stable per [facility] 05/2022 CT. Recommend annual screening w/ Low-Dose CT. - Seen on NH&C 10/10/23 CT. - Seen on CT chest 08/15/24 Outpatient management with PCP DS: Summary Hospital Course Hospital Course: [age] year old female was admitted to the medical floor for management pneumonia. Course of care and details as noted above. As above, initiated on IV vancomycin and cefepime, de-escalated to IV cefepime and transition to oral levofloxacin q.48h x5 doses on discharge, renally dosed. Repeat CBC and BMP with PCP next week. Radiology recommending repeat chest CT in 3 months for resolution. Encouraged to continue to ambulate and use incentive spirometry. ACCOUNTING SYSTEMS MANAGER shunt stable. Dressings removed on 08/17/2024. Surgical follow-up scheduled for August. Remainder of chronic medical comorbidities were monitored and managed with home medications. Status at Discharge Functional status at discharge: independent ambulation Overall status at discharge: patient is back to baseline Time Spent with Patient Time attestation: Total time spent providing and/or coordinating discharge services: Time spent: Greater than 30 minutes Exam Narrative: Exam Narrative: PHYSICAL EXAM General: Pleasant, conversant, NAD HEENT: Surgical wound right skull appears to be healing appropriately, dry, no drainage, no redness, swelling improving Cardiovascular: RRR Pulmonary: No dyspnea Neurological: Alert, answering questions appropriately Skin: Warm, dry. Const: Vital Signs, click to edit/add: Vital Signs - 24 hr 08/17/24 15:00 08/17/24 15:00 08/17/24 15:00 Temperature 98.1 F Pulse Rate [Pulse Oximeter] 83 83 Respiratory Rate 16 16 Blood Pressure [Le ft Arm] Blood Pressure [Ri ght Arm] 102/75 Pulse Oximetry 95 95 Oxygen Delivery Me thod Room Air Room Air 08/17/24 19:00 08/17/24 23:00 08/17/24 23:00 Temperature 98.1 F 97.5 F L Pulse Rate [Pulse Oximeter] 85 70 Respiratory Rate 18 18 18 Blood Pressure [Le ft Arm] Blood Pressure [Ri ght Arm] 105/56 L 121/53 L Pulse Oximetry 93 94 94 Oxygen Delivery Me thod Room Air Room Air Room Air 08/18/24 01:00 08/18/24 02:50 08/18/24 07:57 Temperature 97.6 F 98 F Pulse Rate [Pulse Oximeter] 76 80 Respiratory Rate 18 16 Blood Pressure [Le ft Arm] 125/64 Blood Pressure [Ri ght Arm] 109/51 L Pulse Oximetry 93 93 94 Oxygen Delivery Me thod Room Air 08/18/24 07:57 08/18/24 07:57 Temperature Pulse Rate [Pulse Oximeter] 80 Respiratory Rate 16 16 Blood Pressure [Le ft Arm] Blood Pressure [Ri ght Arm] Pulse Oximetry 94 Oxygen Delivery Me thod Room Air DS: Data Data Completed and Pending Completed studies during hospitalization: Procedures Insertion of Endotracheal Airway into Trachea, Via Natural or Artificial Opening (06/20/24) Introduction of Other Gas into Respiratory Tract, Via Natural or Artificial Opening (10/10/23) Labs on day of discharge: Labs from last 24 hours 08/18/24 06:19 WBC 8.91 RBC 3.67 L Hgb 11.4 L Hct 34.0 MCV 93 MCH 31 MCHC 34 RDW Coeff of Isiah 13.0 Plt Count 290 Neut % (Auto) 64.2 Lymph % (Auto) 19.9 L Pima % (Auto) 9.5 Eos % (Auto) 5.6 Baso % (Auto) 0.6 Neut # (Auto) 5.72 Lymph # (Auto) 1.80 Pima # (Auto) 0.80 Eos # (Auto) 0.50 Baso # (Auto) 0.05 Abs Immat Gran (auto) 0.02 Imm/Tot Granulo (auto) 0.2 Sodium 140 Potassium 3.9 Chloride 102 Carbon Dioxide 27 Anion Gap 11 BUN 21 Creatinine 1.6 H Estimated Creat Clear 30.19 Estimated GFR 34 Glucose 132 H Calcium 9.3 C-Reactive Protein 7.6 H Preliminary micro results at discharge 08/15/24 14:20 Blood Culture - Preliminary Blood NO GROWTH AFTER 48 HOURS Imaging Chest x-ray: Attestation: I have reviewed the pertinent imaging results. Radiologist's impression: Service Date: 08/15/[address]: Ordering Physician: Kapil Gray D.O. Date of Service: 08/15/24 Procedure(s): XR chest 1V Accession Number(s): [id number] cc: Kapil Gray D.O.; Walter Mcgovern M.D.~ For Patients: As a result of the Cures Act, medical imaging exams and procedure reports are released immediately into your electronic medical record. You may view this report before your referring provider. If you have questions, please contact your health care provider. INDICATION: Shunt placement. TECHNIQUE: Chest 1 views. COMPARISON: None. FINDINGS: Cardiovascular and mediastinum: Cardiomediastinal silhouette is within normal limits. Lungs and pleural spaces: Lungs are clear. No sign of pleural effusion. No pneumothorax. Bones and soft tissues: ACCOUNTING SYSTEMS MANAGER shunt is visualized coursing along the right chest wall.. No fractures identified along its course. IMPRESSION: No acute cardiopulmonary process identified. ACCOUNTING SYSTEMS MANAGER shunt identified along the right chest wall. Service Date: 08/16/[address]: Caprice De Jesus M.D. Ordering Physician: Caprice De Jesus M.D. Date of Service: 08/16/24 Procedure(s): XR chest 1V portable Accession Number(s): [id number] cc: Caprice De Jesus M.D.; Walter Mcgovern M.D.~ For Patients: As a result of the Cures Act, medical imaging exams and procedure reports are released immediately into your electronic medical record. You may view this report before your referring provider. If you have questions, please contact your health care provider. INDICATION: Recent shunt placement. Right upper chest pain. TECHNIQUE: Chest 1 portable view. COMPARISON: None. FINDINGS: No pneumothorax or pleural effusion. Lungs are clear. Cardiac and mediastinal contours are within normal limits. Shunt catheter coursing over the right chest as imaged appears intact. Upper abdomen as imaged is unremarkable. Remote right rib fractures are unchanged. Shoulder arthropathy, as before. IMPRESSION: No evidence of acute cardiopulmonary disease. CT abdomen pelvis: Attestation: I have reviewed the pertinent imaging results. Radiologist's impression: Lower chest: Bibasilar dependent atelectasis. Cystic changes in the left lower lobe. No focal consolidation. Liver: No suspicious focal hepatic lesion. Gallbladder and bile ducts: Mildly hydropic gallbladder. No calcified gallstones. No pericholecystic inflammation. Pancreas: Unremarkable. Spleen: Unremarkable. Adrenal glands: Unremarkable. Kidneys: Kidneys enhance symmetrically, without hydronephrosis. Punctate nonobstructing calculus in the lower pole of the right kidney. Retroperitoneum: No lymphadenopathy. Bowel and mesentery: Bowel is not obstructed. Scattered colonic diverticulosis, without evidence of acute diverticulitis. Scattered foci of pneumoperitoneum. No significant ascites. The ventriculoperitoneal shunt tube tip terminates at the anterior right mid abdomen, no significant fluid collection adjacent to the tip. Bladder: Unremarkable for degree of distention. Reproductive organs: Unremarkable. Pelvic lymph nodes: No lymphadenopathy. Vessels: Atherosclerotic calcifications. Abdominal wall: Scattered subcutaneous emphysema. Subcutaneous inflammatory changes are present, without organized fluid collection/abscess at this time. Bones: Extensive multilevel degenerative changes of the spine. Bones are diffusely osteopenic. IMPRESSION: 1. Ventriculoperitoneal shunt tube tip terminates at the anterior right mid abdomen, no significant fluid collection adjacent to the tip. 2. Scattered subcutaneous emphysema and subcutaneous inflammatory changes are present, without organized fluid collection/abscess identified. 3. Small scattered foci of pneumoperitoneum. 4. Additional incidental findings as above. skull xray: Attestation: I have reviewed the pertinent imaging results. Radiologist's impression: Right posterior parietal approach ACCOUNTING SYSTEMS MANAGER shunt is identified distal tip coursing towards the midline likely within the right lateral ventricle. The shunt continues along the right parieto-occipital the subcutaneous soft tissues and into the right neck subcutaneous soft tissues. Visualized osseous structures are unremarkable. Visualized paranasal sinuses are unremarkable. Patient is edentulous. CT scan - chest: Attestation: I have reviewed the pertinent imaging results. Radiologist's impression: Lungs and Airways: Motion. Right lower lobe dependent predominance and right upper lobe dependent predominant areas of patchy airspace disease. Emphysema. 8 millimeter right upper lobe indeterminate pulmonary nodule. Retained tracheal secretions. Heart and Mediastinum: The visualized portions of the thyroid are normal. No axillary or supraclavicular lymphadenopathy. No mediastinal, hilar or retrocrural lymphadenopathy. Normal heart size. Normal caliber aorta. Atherosclerotic and coronary artery calcifications. Pleura: The pleural spaces are normal. Abdomen: Trace amount of free air in the abdomen should be postprocedural. ACCOUNTING SYSTEMS MANAGER shunt catheter extends inferiorly off the [id number] within the peritoneum. Gallbladder sludge. Bones and soft tissues: Subcutaneous gas tracking anteriorly and inferiorly along the soft tissues likely postprocedural. Right-sided ACCOUNTING SYSTEMS MANAGER shunt catheter extending inferiorly in the soft tissues. No discrete kinking or catheter fracture. Advanced bilateral izpcj-[id number]-qdpz-left glenohumeral joint arthrosis. Old right humeral neck fracture. Old right-sided rib fractures. Thoracic spondylosis. IMPRESSION: 1. Right lower lobe dependent predominance and right upper lobe dependent predominant areas of patchy airspace disease. Differential considerations include infection versus aspiration. Recommend unenhanced chest CT in 3 months to document resolution. 2. 8 millimeter right upper lobe indeterminate pulmonary nodule. Attention on follow-up exam to document stability and assess malignant potential. 3. Trace amount of free air in the abdomen should be postprocedural. ACCOUNTING SYSTEMS MANAGER shunt catheter extends inferiorly off the [id number] within the peritoneum. Subcutaneous gas tracking anteriorly and inferiorly along the soft tissues likely postprocedural. Right-sided ACCOUNTING SYSTEMS MANAGER shunt catheter extending inferiorly in the soft tissues. No discrete kinking or catheter fracture. Cervical spine x-ray: Attestation: I have reviewed the pertinent imaging results. Radiologist's impression: Bones: Alignment is normal. No fractures or significant bone lesions. Joints: Disc spaces and facets demonstrate multilevel degenerative changes.. Soft tissues: ACCOUNTING SYSTEMS MANAGER shunt is identified with shunt coursing through the right neck subcutaneous soft tissues and along the right chest wall subcutaneous soft tissues.. Abdominal x-ray: Attestation: I have reviewed the pertinent imaging results. Radiologist's impression: ACCOUNTING SYSTEMS MANAGER shunt: ACCOUNTING SYSTEMS MANAGER shunt is identified in the right subcutaneous soft tissues coiling and terminating in the right mid abdomen. Bowel: Bowel pattern is normal. The amount of colonic stool is within normal limits. Other: No sign of free air. No sign of soft tissue mass. No suspicious calcifications. Osseous structures are unremarkable for age. Impression: ACCOUNTING SYSTEMS MANAGER shunt is noted in the right lower quadrant subcutaneous soft tissues coiling and terminating in the right mid abdomen. CT scan - head: Attestation: I have reviewed the pertinent imaging results. Radiologist's impression: Ventricular catheter via a right parietal approach with tip terminating near the midline appears appropriately positioned. Associated soft tissue gas suggests sequela of recent surgery. The ventricles were incompletely imaged on the comparison neck CT, however, ventricular size has not definitively changed. Mild generalized volume loss and ill-defined low-attenuation in the periventricular and subcortical white matter. No mass effect or midline shift. No CT evidence of acute hemorrhage or infarction. No abnormal extra-axial fluid collection. Intracranial atherosclerosis. Bone windows show no acute calvarial fracture. Paranasal sinuses and orbits as imaged are unremarkable. IMPRESSION: 1. Ventricular catheter via a right parietal approach appears appropriately positioned. Ventricular size has not definitively changed. Ventricles were incompletely visualized on the comparison neck CT. 2. No acute intracranial hemorrhage or midline shift. 3. Mild generalized volume loss and changes of chronic small vessel ischemic disease. Discharge Plan Discharge Disposition: Home, Self-Care Date of Admission: 08/15/24 23:09 Attending Provider on Discharge: Leilani Carrion Primary Care Provider: Walter Mcgovern Condition: Improved Anticipated Discharge Date/Time: 08/18/24 10:57 Discharge Medications: New sennosides-docusate sodium [Stool Softener-Laxative] 8.6-50 mg Tablet 1 tab PO BID Qty: 60 0RF levofloxacin 750 mg tablet 750 mg PO .q48 Qty: 5 0RF Rx Instructions: Complete 5 doses Continued (DME) OneTouch Verio test strips Strip See Rx Instructions .ROUTE 3XD Qty: 10 Rx Instructions: As directed Ozempic 2 mg/dose (8 mg/3 mL) pen injector 2 mg subcut (DME) blood-glucose meter [OneTouch Verio Reflect Meter] [facility] [place] See Rx Instructions .ROUTE .MEDSUPPLY Qty: 1 Patient Comments: APPLY 1 EACH TOPICALLY Rx Instructions: As directed tramadol 50 mg tablet 50 mg PO BID PRN (Reason: pain) Qty: 60 2RF Rx Instructions: Chronic Pain/Nonacute Pain. albuterol sulfate 90 mcg/actuation HFA aerosol inhaler 2 puff INHALATION Q4H PRN Rx Instructions: Inhale 2 puffs every 4 (four) hours as needed for shortness of breath. amitriptyline 50 mg tablet 150 mg PO HS Rx Instructions: TAKE 3 TABLETS(150 MG) BY MOUTH AT BEDTIME aspirin 81 mg tablet,delayed release (DR/EC) 81 mg PO HS Rx Instructions: Take 81 mg by mouth at bedtime. atorvastatin 80 mg tablet 80 mg PO DAILY Rx Instructions: Take 1 tablet (80 mg total) by mouth daily. diclofenac sodium 1 % gel 4 g TOPICAL QID PRN Rx Instructions: Apply 4 g topically 4 (four) times a day as needed (Pain). Apply to right shoulder. ezetimibe 10 mg tablet 10 mg PO DAILY Rx Instructions: TAKE 1 TABLET(10 MG) BY MOUTH DAILY gabapentin 300 mg capsule 300 mg PO HS Rx Instructions: Take 1 capsule (300 mg total) by mouth at bedtime. multivitamin with minerals Capsule 1 cap PO DAILY Spiriva Respimat 2.5 mcg/actuation mist 2 inh INHALATION Q24H Rx Instructions: Inhale 2 puffs daily. torsemide 20 mg tablet 80 mg PO DAILY Rx Instructions: TAKE 4 TABLETS(80 MG) BY MOUTH DAILY venlafaxine 150 mg capsule,extended release 24hr 150 mg PO DAILY Rx Instructions: TAKE 1 CAPSULE(150 MG) BY MOUTH DAILY omeprazole 40 mg capsule,delayed release(DR/EC) 40 mg PO BID Rx Instructions: Take 1 capsule (40 mg total) by mouth 2 (two) times a day before breakfast and dinner. losartan 50 mg tablet 50 mg PO DAILY Discharge Orders: Discharge Order (Routine); Ordered 08/18/24 Ordered By: Leilani Carrino Patient Education: Levofloxacin (By mouth), Senna (By mouth), Bacterial Pneumonia (GEN) Additional Instructions: Repeat chest CT in 3 months for re-evaluation patchy airspace disease and 8 mm pulmonary nodule Activity Level: Activity as Tolerated Discharge Diet: Diabetic Follow Up Appointments: Walter Mcgovern MD [Primary Care Provider] - 08/22/24 11:00 am (Follow-[facility] at [facility].) [facility] Info Instructions
--- NOTE | 2024-08-18 12:20 | PC.NURSE ---
Discharge: Patient pleasant and cooperative, alert and oriented. Patient vitally stable, lungs clear, BS WNL, IV removed, catheter intact. Patient rates right incisional head pain 7/10, dilauded given once and scheduled tylenol. Patient SBA/walker with ambulating. Patient tolerating regular diet and urinating well. Blood sugar
--- NOTE | 2024-08-18 12:22 | PC.NURSE ---
Discharge: Patient pleasant and cooperative, alert and oriented. Patient vitally stable, lungs clear, BS WNL, IV removed, catheter intact. Patient rates right incisional head pain 7/10, dilauded given once and scheduled tylenol. Patient SBA/walker with ambulating. Patient tolerating regular diet and urinating well. Blood sugar 134. Patient had no belongings sheet and signed discharge form. Patient nor her daughter had further questions regarding discharge. Patient left the floor by wheelchair to home at 1145.
== END 2024-08-18 11:45 | disposition home or self-care (01) | DRG 871 ==
LOC: ED 21:04 → MEDSURG 21:31
PROVIDERS: Physician Assistant; Admitting Provider Family Medicine; Emergency Provider Student in an Organized Health Care Education/Training Program; PCP Family Medicine; Visit Provider Family Medicine
DX: A41.9 Sepsis, unspecified organism (principal); J18.9 Pneumonia, unspecified organism; J96.01 Acute respiratory failure with hypoxia; G91.2 (Idiopathic) normal pressure hydrocephalus; I13.0 Hypertensive heart and chronic kidney disease with heart failure and stage 1 through stage 4 chronic kidney disease, or unspecified chronic kidney disease; I50.32 Chronic diastolic (congestive) heart failure; R07.89 Other chest pain; E11.22 Type 2 diabetes mellitus with diabetic chronic kidney disease; N18.32 Chronic kidney disease, stage 3b; G47.33 Obstructive sleep apnea (adult) (pediatric); Z98.2 Presence of cerebrospinal fluid drainage device; F06.70 Mild neurocognitive disorder due to known physiological condition without behavioral disturbance; J44.9 Chronic obstructive pulmonary disease, unspecified; R91.1 Solitary pulmonary nodule; Z79.4 Long term (current) use of insulin; Z79.85 Long-term (current) use of injectable non-insulin antidiabetic drugs; R42 Dizziness and giddiness; R39.15 Urgency of urination; F41.8 Other specified anxiety disorders; I87.2 Venous insufficiency (chronic) (peripheral); E66.09 Other obesity due to excess calories; K21.9 Gastro-esophageal reflux disease without esophagitis; E11.42 Type 2 diabetes mellitus with diabetic polyneuropathy; Z79.82 Long term (current) use of aspirin; G89.18 Other acute postprocedural pain; R51.9 Headache, unspecified; E78.2 Mixed hyperlipidemia; Z68.36 Body mass index [BMI] 36.0-36.9, adult
CPT/HCPCS: 36415; 70250; 70450; 71045; 71250; 72040; 74018; 74019; 74177; 80048; 80053; 81003; 82803; 82962; 83605; 84145; 84484; 85025; 86140; 87040; 87081; 87449; 87631; 87899; 93005; 94640; 94664; 94761; 97110; 97161; 97165; 97535; 99285; 99291; A9270; J0692; J1171; J2270; J3372; J7030; Q9967

== ENCOUNTER 2024-11-03 10:40 | Emergency (ER) | payer MEDICARE, BC, SELFPAY ==
--- OUTSIDE RECORDS SUMMARY | 2024-09-20 14:31 | XMS_ITS | Encounter Summary ---
Author Organization [facility] Address [address] [place] [address] Care Team Providers Care Livestock Feeder Name Role Phone Laly Dickey P.A.-C. Primary Care Pro vider Reason for Referral * Outpatient (Routine) - Closed Specialty Diagnoses / Procedures Referred By Contac t Referred To Contact Diagnoses Hydrocephalus Normal Pressure (HCC) Procedures Neurology Gait Disorders Laboratory Hydrocephalus Carmen Petit APRN, C.N.P., M.S.N. [address] [place] [phone] Phone: tel: fax: [facility] Referral ID Status Reason Start Date Expiration Date Visits Re quested Visits Authorized [id number] Closed 08/14/2024 11/14/2025 1 1 Reason for Visit * Outpatient (Routine) - Closed Specialty Diagnoses / Procedures Referred By Contac t Referred To Contact Diagnoses Hydrocephalus Normal Pressure (HCC) Procedures Neurology Gait Disorders Laboratory Hydrocephalus Carmen Petit APRN, C.N.P., M.S.N. [address] [place] [phone] Phone: tel: fax: [facility] Referral ID Status Reason Start Date Expiration Date Visits Re quested Visits Authorized [id number] Closed 08/14/2024 11/14/2025 1 1 Encounter Details Date Type Department Care Team (Latest Contact Info) Description 09/20/2024 2:31 PM CDT - 09/20/2024 3:18 PM CDT Hospital Encounter Department of Neurology in [place], [place] [address] [place] [phone] Carmen Petit, [place], C.N.P., M.S.N. [address] [place] [phone] Irma Osullivan M.B.B.S. [address] [place] [phone] Hydrocephalus Normal Pressure (HCC) Social History Tobacco Use Types Packs/Day Years Used Date Smoking Tobacco: Former Cigarettes 2 30 0 11/13/1975 - 11/12/2005 Passive Smoke Exposure: Past Smokeless Tobacco: Never Comments:Quit smoking in 200 3 Alcohol Use Standard Drinks/Week Comments Not Currently 0 (1 standard drink = 0.6 oz pur e alcohol) [facility] Utilities Answer Date Recorded In the past 12 months has e [employer], gas, oil, or water [employer] threatened to shut off services in your [...] your living situation today? 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 omeprazole (PriLOSEC) [address] capsule TAKE 1 CAPSULE(40 MG) BY MOUTH TWICE DAILY BEFORE BREAKFAST AND DINNER 180 capsule 08/17/2024 OneTouch Verio Reflect Meter misc APPLY 1 [...] DAILY 360 tablet 3 06/05/2024 venlafaxine XR (Effexor-XR) 150 mg 24 hr capsule TAKE 1 CAPSULE(150 MG) BY MOUTH DAILY 90 capsule 3 09/04/2024 documented as of this encounter Procedure Notes * Irma Osullivan M.B.B.S. - 09/20/2024 3:00 PM CDTAssociated Order(s): Neurology Gait Disorders Laboratory Hydrocephalus Pre-Procedure Diagnose(s): Hydrocephalus Normal Pressure (HCC) Post-Procedure Diagnose(s): Hydrocephalus Normal Pressure (HCC) Neurology Gait Disorders Laboratory Hydrocephalus Performed by: Irma Osullivan M.B.B.S. Authorized by: Carmen Petit APRN, C.N.P., M.S.N. Neurology Gait Disorders Laboratory Report Indication: Gait, balance and physical function assessment for evaluation and monitoring of treatment. Follow-up Video is available in the image viewer Raw data values and trends are viewable in the procedures tab under Neurology Gait Disorders Lab. Clinical Summary: The patient was seen in the neurology gait disorders lab for a follow-up evaluation of gait and balance impairment. The patient experiences gait balance difficulties, she reports some improvement since the surgery. Gait is further complicated by right ankle abnormalities, bilateral knee replacement, right shoulder abnormalities and tipping of her whole-body to the right side. Method Gait: Gait evaluation was performed using a pressure sensitive walkway to collect spatial-temporal parameters. The patient walked at a comfortable self- selected speed. Total number of passes: 5 Foot wear: barefoot Gait aid used during evaluation: none Balance: Balance evaluation was performed on a series of force plates under six or more conditions. Static stability: Modified clinical test of sensory integration in balance (mCTSIB) Dynamic stability: rhythmic weight shift Normative values for the age decade were used for gait (available for 20-89 yrs) and balance data (available for 20-79 yrs). Results: Compared to prior study dated August 09 2024 (preoperative) the following changes were observed: Gait: Spatial temporal parameters show improvement in gait velocity, stride length, piedad, double support time and swing time. These values remain outside of the normal range but have moderately improved. Gait variability was still high but mildly improved. In comparing the right and left limb there has been an improvement in her step length from 33 cm to43 cm bilaterally. There is no significant asymmetry.. Balance: Limited balance testing was attempted, she continues to demonstrate significant static instability and is unable to perform dynamic stability testing primarily due to a variety of orthopedic issues that limit her mobility. Interpretation: Compared to prior study there has been some improvement in her gait function. Her balance is abnormal and testing is limited and significantly impacted by orthopedic problems hence this was limited. Recommendations: Results of this test and specific [...] attentiveof surroundings to reduce risk of falls. Neurology Gait Lab Questionnaire 09/20/2024 2:46 PM CDT - Filed by Patient How many unexplained or unprovoked falls have you had since your last gait lab visit (or in the past year)? 0 Do you use any of the following gait aid to walk safely? Walker Where do you live? Home Do you need help with daily activities like bathing, toileting, dressing, feeding? No help needed How confident do you feel about your walking and balance abilities? 60-89% (very confident) Is your walking ability affected due to problems with any of the following joints? Lower back/spine Do any of the following symptoms affect your balance and ability to walk safely? Light headedness (feeling faint) Time spent: 30 minutes documented in this encounter Plan of Treatment Scheduled Procedures Name Priority Associated Diagnoses Date/Ti me ARTHROPLASTY TOTAL REVERSE SHOULDER Fracture 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 documented as of this encounter Procedures Procedure Name Priority Date/Time Associated Diagnosis Comments NEUROLOGY GAIT DISORDERS LABORATORY Routine 09/20/2024 3:00 PM CDT Hydrocephalus Normal Pressure (HCC) documented in this encounter Results * NEUROLOGY GAIT DISORDERS LABORATORY (09/20/2024 3:00 PM CDT) Narrative Irma Osullivan M.B.B.S. - 09/20/2024 3:00 PM CDT Irma Osullivan M.B.B.S. 09/20/2024 5:12 PM Neurology Gait Disorders Laboratory Hydrocephalus Performed by: Irma Osullivan M.B.B.S. Authorized by: Carmen Petit APRN, C.N.P., M.S.N. Carmen Petit APRN, C.N.P., M.S.N. NEUROLOGY ORDERABLES Final Result documented in this encounter Visit Diagnoses Diagnosis Hydrocephalus Normal Pressure (HCC) documented in this encounter Additional Health Concerns Assessment Noted Time PHQ-9 Depression Total Score: 0 07/05/19 25 10:01 AM REFRIGERATING TECHNICIAN documented as of this encounter Care Teams Livestock Feeder Relationship Specialty Start Date End Date Laly Dickey MPAS, P.A.-C. [address] [place] [phone] PCP - General Internal Medicine 07/28/22 documented as of this encounter
--- OUTSIDE RECORDS SUMMARY | 2024-09-20 15:00 | XMS_ITS | Encounter Summary ---
Author Organization [facility] Address [address] [place] [address] Care Team Providers Care Cellar Hand Name Role Phone Laly Dickey P.A.-C. Primary Care Pro vider Encounter Details Date Type Department Care Team (Late st Contact Info) Description 09/20/2024 3:00 PM CDT Ancillary Procedure Department of Neurology Social History Tobacco Use Types Packs/Day Years Used Date Smoking Tobacco: Former Cigarettes 2 30 0 11/13/1975 - 11/12/2005 Passive Smoke Exposure: Past Smokeless Tobacco: Never Comments:Quit smoking in 200 3 Alcohol Use Standard Drinks/Week Comments Not Currently 0 (1 standard drink = 0.6 oz pur e alcohol) [facility] Utilities Answer Date Recorded In the past 12 months has [facility] [employer], gas, oil, or water [employer] threatened to shut off services in [...] living situation today? 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 Gender Identity Female 03/19/2023 10:10 AM CDT Sexual Orientation Not on file documented as of this encounter Plan of Treatment Scheduled Procedures Name Priority Associated Diagnoses Date/Ti me ARTHROPLASTY TOTAL REVERSE SHOULDER Fracture 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 documented as of this encounter Procedures Procedure Name Priority Date/Time Associated Diagnosis Comments NEUROLOGY IMAGE EXAM Routine 09/20/2024 3:00 PM CDT documented in this encounter Results * Neurology gait disorders lab-Neurology Image Exam (09/20/2024 3:00 PM CDT) 09/20/2024 3:00 PM CDT Narrative [facility] - 09/20/2024 3:16 PM CDT This order has been created [...] Total Score: 0 07/05/19 25 10:01 AM FRONT END JAVA DEVELOPER documented as of this encounter Care Teams Cellar Hand Relationship Specialty Start Date End Date Laly Dickey MPAS, P.A.-C. [address] [place] [phone] PCP - General Internal Medicine 07/28/22 documented as of this encounter
--- OUTSIDE RECORDS SUMMARY | 2024-09-20 15:19 | XMS_ITS | Encounter Summary ---
Author Organization [facility] Address [address] [place] [address] Care Team Providers Care Pyrotechnic Assembler Name Role Phone Laly Dickey P.A.-C. Primary Care Pro vider Reason for Referral * MRI/CAT/PET Scan (Routine) - Closed Specialty Diagnoses / Procedures Referred By Nemo morales Referred To Contact Radiology Diagnoses Hydrocephalus Normal Pressure (HCC) Procedures CT Head without IV Contrast Carmen Petit APRN C.N.P., M.S.N. [address] [place] [phone] Phone: tel: fax: [facility] Referral ID Status Reason Start Date Expiration Date Visits Re quested Visits Authorized [id number] Closed 08/14/2024 11/14/2025 1 1 Reason for Visit * MRI/CAT/PET Scan (Routine) - Closed Specialty Diagnoses / Procedures Referred By Contac t Referred To Contact Radiology Diagnoses Hydrocephalus Normal Pressure (HCC) Procedures CT Head without IV Contrast Carmen Petit APRN, C.N.P., M.S.N. [address] [place] [phone] Phone: tel: fax: [facility] Referral ID Status Reason Start Date Expiration Date Visits Re quested Visits Authorized [id number] Closed 08/14/2024 11/14/2025 1 1 Encounter Details Date Type Department Care Team (Latest Contact Info) Description 09/20/2024 3:19 PM CDT - 09/20/2024 11:59 PM CDT Hospital Encounter Department of Radiology, [facility], in [place], [place] [address] [place] [address] Carmen Petit, [place], C.N.P., M.S.N. [address] [place] [phone] Hydrocephalus Normal Pressure (HCC) Discharge Disposition: Home or Self Care Social History Tobacco Use Types Packs/Day Years Used Date Smoking Tobacco: Former Cigarettes 2 30 0 11/13/1975 - 11/12/2005 Passive Smoke Exposure: Past Smokeless Tobacco: Never Comments:Quit smoking in 200 3 Alcohol Use Standard Drinks/Week Comments Not Currently 0 (1 standard drink = 0.6 oz pur e alcohol) [facility] Utilities Answer Date Recorded In [...] have a [facility] place to live 08/14/2024 Comments No Sex and Gender Information Value Date Recorded Sex Assigned at Female 03/19/2023 10:10 AM CDT 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 Gender Identity Female 03/19/2023 10:10 AM [...] APPLY 1 EACH TOPICALLY 1 each 03/07/2024 [employer] Verio test strips 3 test See Admin [...] 3 09/04/2024 documented as of this encounter Plan of Treatment Scheduled Procedures Name Priority Associated Diagnoses Date/Ti me ARTHROPLASTY TOTAL REVERSE SHOULDER Fracture 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 documented as of this encounter Procedures Procedure Name Priority Date/Time Associated Diagnosis Comments CT HEAD WITHOUT IV CONTRAST RAD - Routine (most inpatients and all outpatients) 09/20/2024 3:41 PM CDT Hydrocephalus Normal Pressure (HCC) documented in this encounter Results * CT Head without IV Contrast (09/20/2024 3:41 PM CDT) Anatomical Region Laterality Modality Head, Neuroradiology RST LOS , Neuroradiology ARZ LOS, Neuroradiology FLA LOS N/A Computed Tomography, Compute d Tomography 09/20/2024 3:37 PM CDT Impressions 09/20/2024 4:08 PM CDT No substantial interval change. Narrative 09/20/2024 4:08 PM CDT EXAM: CT HEAD WITHOUT IV CONTRAST COMPARISON: Noncontrast head CT 08/15/2024 FINDINGS: No substantial interval change. Right parietal shunt catheter tip near the septum pellucidum. Stable ventricular caliber. No evidence of acute intracranial hemorrhage or mass effect. Nothing for acute infarct. Mild generalized parenchymal volume loss. Procedure Note Edgar Ramsey M.D. - 09/20/2024 EXAM: CT HEAD WITHOUT IV CONTRAST COMPARISON: Noncontrast head CT 08/15/2024 FINDINGS: No substantial interval change. Right parietal shunt cathetertip near the septum pellucidum. Stable ventricular caliber. No evidence ofacute intracranial hemorrhage or mass effect. Nothing for acute infarct.Mild generalized parenchymal volume loss. IMPRESSION: No substantial interval change. us Radha Moore APRNNVioleta, M.S.N. IMG CT PRO CEDURES Final Result documented in this encounter Visit Diagnoses Diagnosis Hydrocephalus Normal Pressure (HCC) documented in this encounter Additional Health Concerns Assessment Noted Time PHQ-9 Depression Total Score: 0 07/05/19 25 10:01 AM CARNIVAL WORKER documented as of this encounter Care Teams Pyrotechnic Assembler Relationship Specialty Start Date End Date Laly Dickey MPAS, P.A.-C. [address] [place] [phone] PCP - General Internal Medicine 07/28/22 documented as of this encounter
--- OUTSIDE RECORDS SUMMARY | 2024-09-21 09:30 | XMS_ITS | Encounter Summary ---
Author Organization [facility] Address [address] [place] [address] Care Team Providers Care Agricultural Economics Professor Name Role Phone Laly Dickey P.A.-C. Primary Care Pro vider Reason for Referral * MRI/CAT/PET Scan (Routine) - Authorized Specialty Diagnoses / Procedures Referred By Nemo morales Referred To Contact Radiology Diagnoses Ventriculoperitoneal Status Post Hydrocephalus Normal Pressure (HCC) Procedures MR Brain without IV Contrast MR Brain without IV Contrast [place] MRI BRAIN WO CNTRST HC MRI BRAIN WO CNTRST Ashley Watts P.A.-C. [address] [place] [phone] Phone: tel: fax: [facility] Region Referral ID Status Reason Start Date Expiration Date V isits Requested Visits Authorized [id number] Authorized 09/21/2024 12/22/2025 1 1 * Outpatient (Routine) - Authorized Specialty Diagnoses / Procedures Referred By Nemo morales Referred To Contact Occupational Therapy Diagnoses Ventriculoperitoneal Status Post Hydrocephalus Normal Pressure (HCC) Ashley Watts P.A.-C. [address] [place] [address] Phone: tel: fax: Referral ID Status Reason Start Date Expiration Date Visits Requested Visits Authorized [id number] Authorized Continuity of Care 09/21/2024 03/23/2026 1 1 * Physical Therapy (Routine) - Authorized Specialty Diagnoses / Procedures Referred By Contac t Referred To Contact Physical Therapy Diagnoses Ventriculoperitoneal Status Post Hydrocephalus Normal Pressure (HCC) Ashley Watts P.A.-C. [address] [place] [phone] Phone: tel: fax: Referral ID Status Reason Start Date Expiration Date Visits Requested Visits Authorized [id number] Authorized Continuity of Care 09/21/2024 03/23/2026 99 99 * Outpatient (Routine) - Authorized Specialty Diagnoses / Procedures Referred By Contac t Referred To Contact Diagnoses Ventriculoperitoneal Status Post Hydrocephalus Normal Pressure (HCC) Procedures Neurology Gait Disorders Laboratory Hydrocephalus Ashley Watts P.A.-C. [address] [place] [phone] Phone: tel: fax: [facility] Referral ID Status Reason Start Date Expiration Date V isits Requested Visits Authorized [id number] Authorized 09/21/2024 12/22/2025 1 1 * Outpatient (Routine) - Authorized Specialty Diagnoses / Procedures Referred By Contac t Referred To Contact Neurological Surgery Ashley Watts P.A.-C. [address] [place] [phone] Phone: tel: fax: [facility] Referral ID Status Reason Start Date Expiration Date V isits Requested Visits Authorized [id number] Authorized 09/21/2024 03/23/2026 1 1 Scheduling Instructions AFTER MRI, gait study and neurology. May schedule with Carine if I am not available Reason for Visit * Outpatient (Routine) - Closed Specialty Diagnoses / Procedures Referred By Nemo morales Referred To Contact Neurological Surgery Diagnoses Hydrocephalus Normal Pressure (HCC) Carmen Petit APRN C.N.P., M.S.N. [address] [place] [phone] Phone: tel: fax: Ashley Watts P.A.-C. [address] [place] [phone] Phone: tel: fax: Referral ID Status Reason Start Date Expiration Date Visits Re quested Visits Authorized [id number] Closed 08/14/2024 02/13/2026 1 1 Encounter Details Date Type Department Care Team (Latest Contact Info) Description 09/21/2024 9:30 AM CDT Office Visit Department of Neurologic Surgery in [place], [place] [address] [place] [phone] Ashley Watts P.A.-C. [address] [place] [phone] Ventriculoperitoneal Status Post (Primary Dx); Hydrocephalus Normal Pressure (HCC) Social History Tobacco Use Types Packs/Day Years Used Date Smoking Tobacco: Former Cigarettes 2 30 0 11/13/1975 - 11/12/2005 Passive Smoke Exposure: Past Smokeless Tobacco: Never Comments:Quit smoking in 200 3 Alcohol Use Standard Drinks/Week Comments Not Currently 0 (1 standard drink = 0.6 oz pur e alcohol) [facility] Utilities Answer Date Recorded In the past 12 months has e [employer], gas, oil, or water [employer] threatened to shut off services in [...] have a [facility] place to live 08/14/2024 Comments No Sex and Gender Information Value Date Recorded Sex Assigned at Female 03/19/2023 10:10 AM CDT 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 - 09/21/2024 9:30 AM CDT SUBJECTIVE REASON FOR VISIT This is a 1-month followup visit for Ms. Ortega who underwent placement of a right [employer] plus SPORTS PSYCHOLOGIST shunt with siphon guard at a setting of [address] Granda on 08/14/2024 for normal-pressure hydrocephalus. Prior to her shunt placement several here decline in her ambulation with a short shuffling gait as well as significant imbalance that is started after a severe COVID infection in 2020. She also experienced progressive cognitive and urinary urgency. At times she had urinary hesitancy as well. Ms. Ortega is here with her daughter, Ivy, who provides some of the history. Ivy brought up concerns regarding her mother's discharge and subsequent hospitalization in [place] and treated for pneumonia. There is a note by Dr. Gallegos from 08/15/2024 in her chart. A head CT performed at the outside facility did not sow any acute complications from the shunt placement. A chest x-ray showed likely right-sided pneumonia versus aspiration. She denies any positional headaches, however notes a pressure type frontal headache. She also describes tenderness over the shunt valve. She denies any abdominal pain. No falls. Her dizziness, walking/balance and urinary symptoms have improved. Her daughter notes that at times Anna's memory seems to have improved and at other times, not. SHUNT SETTINGS: 08/14/2024 6 OBJECTIVE PHYSICAL EXAMINATION Pleasant 69 y.o. female in no acute distress. She is alert and answers questions appropriately. Hisincisions are healing well. There is still scabbing present on the cranial incision. No sign of dehiscence or infection. Able to arise from a seated position and ambulate independently. DIAGNOSTICS IMAGING: I reviewed her head CT, which did not show signs of overdrainage. Stable ventricular caliber GAIT STUDY: I reviewed her gait study/analysis and compared it to her previous studies. There has been improvement of her gait function. ASSESSMENT / PLAN Encounter Diagnoses Name Primary? Ventriculoperitoneal Status Post Yes Hydrocephalus Normal Pressure (HCC) Anna has seen improvements since her shunt was placed. Given her frontal headaches, I will hold off on making an adjustment today. I verified the shunt is set at 6, using the business programmer. I explained the importance of working with PT and he was given a referral. She was given a referral for a driving evaluation. We should be notified if Anna ever falls and hits her head. I will see her back at the 6 month charanjit with another brain MRI, gait analysis and a neurology visit.I ordered the MRI to be done in [place] as that is more convenient for her. It was a pleasure meeting with Anna and Ivy today. Their were answered and are encouraged to contact our office if further questions arise after the visit. documented in this encounter Plan of Treatment Scheduled Orders Name Type Priority Associated Diagnoses Orde r Schedule MR Brain without IV Contrast Imaging RAD - Routine (most inpatients and all outpatients) Ventriculoperitoneal Status Post Hydrocephalus Normal Pressure (HCC) Expected: 02/21/2025 (Approximate), Expires: 12/21/2025 Scheduled Procedures Name Priority Associated Diagnoses Date/Ti me ARTHROPLASTY TOTAL REVERSE SHOULDER Fracture 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 Scheduled Referrals Name Type Priority Associated Diagnoses Order Schedule Neurological Surgery office visit (clinic) Outpatient Referral Routine Expect ed: 02/22/2025, Expires: 12/21/2025 documented as of this encounter Visit Diagnoses Diagnosis Ventriculoperitoneal Status Post- Primary Hydrocephalus Normal Pressure (HCC) documented in this encounter Additional Health Concerns Assessment Noted Time PHQ-9 Depression Total Score: 0 07/05/19 25 10:01 AM BAIL BONDSMAN documented as of this encounter Care Teams Agricultural Economics Professor Relationship Specialty Start Date End Date Laly Dickey MPAS, P.A.-C. [address] [place] [address] [place] [phone] PCP - General Internal Medicine 07/28/22 documented as of this encounter
[2024-11-03 10:43] VITALS: BP 110/74; PULSE 85; RESP 18; TEMP 36.7; O2SAT 97; BMI 31.3
--- OUTSIDE RECORDS SUMMARY | 2024-11-03 10:43 | XMS_ITS | Encounter Summary ---
Author Organization [facility] Address [address] [place] [address] Care Team Providers Care Plumbing Instructor Name Role Phone Laly Dickey, P.A.-C. Primary Care Pro vider Reason for Referral * Outpatient (Routine) - Authorized Specialty Diagnoses / Procedures Referred By Nemo morales Referred To Contact Diagnoses Screening Mammogram Breast Cancer Procedures BI Breast Screening Bilateral with Tomosynthesis Laly Dickey MPAS, P.A.-C. [address] [facility] [place] [address] Phone: tel: fax: [facility] Region Referral ID Status Reason Start Date Expiration Date V isits Requested Visits Authorized [id number] Authorized 10/31/2024 01/31/2026 1 1 Encounter Details Date Type Department Care Team (Late st Contact Info) Description 10/31/2024 Orders Only [facility]CP [facility] MNT Laly Dickey MPAS, P.A.-C. [address] [facility] [place] [address] Screening Mammogram Breast Cancer Social History Tobacco Use Types Packs/Day Years [...] your living situation today? I have a [facility] place to live 08/14/2024 Comments No Sex and Gender Information Value Date Recorded Sex Assigned at Female 03/19/2023 10:10 AM CDT Legal Sex Female 1:31 PM BREAD JOCKEY Gender Identity Female 03/19/2023 10:10 AM CDT Sexual Orientation Not on file documented as of this encounter Plan of Treatment Scheduled Orders Name Type Priority Associated Diagnoses Order Schedule BI Breast Screening Bilateral with Tomosynthesis Imaging RAD - Routine (most inpatients and all outpatients) Screening Mammogram Breast Cancer Expected: 11/14/2024, Expires: 04/19/2025 Scheduled Procedures Name Priority Associated Diagnoses Date/Ti me ARTHROPLASTY TOTAL REVERSE SHOULDER Fracture 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 documented as of this encounter Visit Diagnoses Diagnosis Screening Mammogram Breast Cancer documented in this encounter Additional Health Concerns Assessment Noted Time PHQ-9 Depression Total Score: 0 07/05/19 25 10:01 AM BREAD JOCKEY documented as of this encounter Care Teams Plumbing Instructor Relationship Specialty Start Date End Date Laly Dickey MPAS, P.A.-C. [address] [place] [phone] PCP - General Internal Medicine 07/28/22 documented as of this encounter
--- OUTSIDE RECORDS SUMMARY | 2024-11-03 10:43 | XMS_ITS | Clinical Summary ---
Author Organization [facility] Address [address] [place] [address] Care Team Providers Care Microeconomics Professor Name Role Phone Laly Dickey P.A.-C. Primary Care Pro vider Source Comments Patient records contain information from all sites at [facility]. For routine questions regarding patient records, call [phone] during business hours, M-F 8:00 AM - 5:00 PM Central Time. Record requests for emergency care only can be directed to [phone] at any time.[facility] Allergies Active Allergy Reactions Criticality Noted Date Comments Adhesive Hives (Reselect Reaction),Rash High 03/29 Blisters Metformin Other (see comments) 03/01/2023 GI intolerance Penicillin Hives (Reselect Reaction) High 03/29/2013 Hospitalized Medications aspirin [address] tablet Take 81 mg by mouth at bedtime. 2 Active polyethylene glycol (MIRALAX) 17 gram/dose oral powder Take 1 packet by mouth as needed for constipation. 0 Active multivit with minerals/lutein (MULTIVITAMIN 50 PLUS ORAL) Take 1 tablet by mouth daily. Active BD Ultra-Fine Short Pen Needle 31 gauge x 5/16 needle USE DIRECTED 3 Active ipratropium-alb uteroL (DUONEB) 0.5-2.5 mg/3 mL nebulizer solution Inhale 3 mL by nebulization 4 (four) times a day as needed for wheezing or shortness of breath. 90 mL 4 Active diclofenac sodium (Voltaren) 1 % gel Apply 4 g topically 4 (four) times a day as needed (Pain). Apply to right shoulder. 200 g 3 4 Active OneTouch Verio Reflect Meter misc APPLY 1 EACH TOPICALLY 1 each 4 Active Spiriva Respimat 2.5 mcg/actuation inhaler inhale 2 puffs by mouth daily 12 g 3 4 Active ezetimibe (Zetia) 10 mg tablet Take 1 tablet (10 mg total) by mouth daily. Patient needs Labs for further refills. 90 tablet 3 4 Active losartan (Cozaar) 50 mg tablet TAKE 1 TABLET(50 MG) BY MOUTH DAILY 90 tablet 3 4 Active torsemide (Demadex) 20 mg tablet TAKE 4 TABLETS(80 MG) BY MOUTH DAILY 360 tablet 3 5 Active OneTouch Verio test strips 3 test See Admin Instructions. 270 strip 3 5 Active semaglutide (Ozempic) 2 mg/dose (8 mg/3 mL) injection Inject 2 mg under the skin every 7 (seven) days. 3 mL 11 5 Active Additional Information Patient taking differently:2 mg subcutaneous Every 7 days,Injects on , Reported on 08/14/2024 atorvastatin (Lipitor) 80 mg tablet Take 1 tablet (80 mg total) by mouth daily. 90 tablet 3 5 06/19/19 26 Active amitriptyline (ElaviL) 50 mg tablet Take 2 tablets (100 mg total) by mouth at bedtime. 5 Active Additional Information Patient taking differently: 150 mgoral Daily at bedtime, Reported on 08/14/2024 gabapentin (Neurontin) 300 mg capsule Take 1 capsule (300 mg total) by mouth 2 (two) times a day. 5 06/15/19 26 Active Additional Information Patient taking differently:300 mg oralDaily at bedtime, Reported on 08/14/2024 acetaminophen (TylenoL) 500 mg tablet Take 2 tablets (1,000 mg total) by mouth every 6 (six) hours as needed for mild pain or score 1-3 of 10, moderate pain or score 4-6 of 10 or severe pain or score 7-10 of 10. 5 Active Additional Information Patient taking differently: 1,500 mgoral3 times daily PRN, mild pain or score 1-3 of 10, moderate pain or score 4-6 of 10, severe pain or score 7-10 of 10, Reported on 08/14/2024 sennosides-docu sate sodium (Senokot-S) 8.6-50 mg per tablet Take 1 tablet by mouth 2 (two) times a day. 5 Active Additional Information Patient taking differently:1 tablet oral2 times daily PRN, constipation, Reported on 08/14/2024 albuterol 90 mcg/actuation inhaler Inhale 2 puffs every 4 (four) hours as needed for shortness of breath. 54 g 3 5 07/10/19 Active omeprazole (PriLOSEC) [address] capsule TAKE 1 CAPSULE(40 MG) BY MOUTH TWICE DAILY BEFORE BREAKFAST AND DINNER 180 capsule Active venlafaxine XR (Effexor-XR) 150 mg 24 hr capsule TAKE 1 CAPSULE(150 MG) BY MOUTH DAILY 90 capsule 3 Active Active Problems Problem Noted Date Diagnosed [...] 09/08/2022 Overview (01/20/2023): Consult with Orthopedics in [place] August 2022. Patient elected for surgical intervention [...] Date Type Department Care Team Description 5 Orders Only [facility] PCP TH MNT Laly Dickey MPAS, P.A.-C. Screening Mammogram Breast Cancer 5 9:30 AM CDT Office Visit Department of Neurologic Surgery in [place], [place] [address] [place] [address] Ashley Watts P.A.-C. Ventriculoperitoneal Status Post (Primary Dx); Hydrocephalus Normal Pressure (HCC) 5 Orders Only Department of Neurology in [place], [place] [address] [place] [address] Ashley Watts P.A.-C. 5 3:19 PM CDT - 5 11:59 PM CDT Hospital Encounter Department of Radiology, [facility], in [place], [place] [address] [place] [address] Carmen Petit APRN, C.N.P., M.S.N. Hydrocephalus Normal Pressure (HCC) Discharge Disposition: Home or Self Care 5 3:00 PM CDT Ancillary Procedure Department of Neurology 5 2:31 PM CDT - 5 3:18 PM CDT Hospital Encounter Department of Neurology in [place], [place] [address] [place] [address] Carmen Petit APRN, C.N.P., M.S.N. Irma Osullivan M.B.B.S. Hydrocephalus Normal Pressure (HCC) 5 Refill Department of Community Internal Medicine in [place], [place] [address] [place] [phone] Laly Dickey MPAS, P.A.-C. Med Refill 5 Clinical Communication Department of Community Internal Medicine in [place], [place] [address] [place] [phone] Aleksandra Orlando R.N. Post Hospital Follow-up 5 Refill Department of Community Internal Medicine in [place], [place] [address] [place] [phone] Laly Dickey MPAS, P.A.-C. Med Refill 5 Documentation Department of Neurologic Surgery in [place], [place] [address] [place] [address] Aleksandra Peraza M.D. 5 Clinical Communication Department of Neurologic Surgery in [place], [place] [address] [place] [address] Agustin Granda M.D., Ph.D. Patient in hospital 5 Intake [facility] 5 8:17 AM CDT Anesthesia Event [facility] [address] [place] [phone] Agatha Chandler M.D. Omar, Ibrahim A, M.D. 5 7:50 AM CDT - 5 10:52 AM CDT Surgery [facility] [address] [place] [phone] Agustin Granda M.D., Ph.D. ventriculoperitoneal shunt placement. 5 6:59 AM CDT - 5 11:59 PM CDT Hospital Encounter Department of Radiology, [facility], in [place], [place] [address] [place] [phone] Agustin Granda M.D., Ph.D. Hydrocephalus Normal Pressure (HCC); Preoperative Exam Discharge Disposition: Home or Self Care 5 5:38 AM CDT - 5 11:21 AM CDT Hospital Encounter [facility], [facility], [facility], Ninth Floor [address] [place] [phone] Agustin Gradna M.D., Ph.D. Discharge Disposition: Acute Care Hospital 5 Clinical Communication [facility] [address] [place] [phone] Agustin Granda M.D., Ph.D. Post Hospital Follow-up 5 2:30 PM CDT Comprehensive Visit Department of Otorhinolaryngology in [place], [place] [address] [place] [phone] Montserrat Jacobs M.D. Acute Sialoadenitis 5 1:30 PM CDT Comprehensive Visit Division of Trauma Critical Care and General Surgery in [place], [place] [address] [place] [address] Agustin Granda M.D., Ph.D. Aaliyah Lazo M.D. Hydrocephalus Normal Pressure (HCC) (Primary Dx); Preoperative Exam 5 2:05 PM CDT Ancillary Procedure Department of Neurology 5 1:35 PM CDT - 5 3:02 PM CDT Hospital Encounter Department of Neurology in [place], [place] [address] [place] [phone] Agustin Granda M.D., Ph.D. Ricardo Nayak M.D. Hydrocephalus Normal Pressure (HCC) Discharge Disposition: Home or Self Care 5 9:50 AM CDT - 5 11:59 PM CDT Hospital Encounter Department of Laboratory Medicine in [place], [place] [address] [place] [address] Agustin Granda M.D., Ph.D. Hydrocephalus Normal Pressure (HCC); Preoperative Exam; Chronic Kidney Disease Stage 4 Glomerular Filtration Rate 15-29 (HCC) Discharge Disposition: Home or Self Care 5 3:15 PM CDT Clinical Communication Virtual Review in [place], [place] [address] [place] [address] Pre-visit Intake from Last 3 Months Immunizations Immunization Administration [...] drink = 0.6 oz pur e alcohol) [facility] Utilities Answer Date Recorded In the past 12 months has e electric, gas, oil, or water [employer] threatened to shut off services in your [...] [facility] to live 08/14/2024 Comments No Sex and Gender Information Value Date Recorded Sex Assigned at Female 03/19/2023 10:10 AM CDT Legal Sex Female 1:31 PM SIDING INSTALLER Gender Identity Female 03/19/2023 10:10 AM [...] 08/14/2024 5:54 AM CDT Plan of Treatment Scheduled Procedures Name Priority [...] 03/26/2023, 0 01/2022, 02/06/2022, Additional history exists Hemoglobin A1C 12/05/2024 06/07/2024, 070 07/2023, 06/01/2023, Additional history exists Visit: Medicare Annual Wellness 02/14/2025 02/14/2024 Urine Albumin 06/14/2025 06/14/2024, 0 12/2024, [...] history exists Fall Risk Screen (Annual) Completed 08/14/2024 IPV Vaccines Aged Out No longer eligi ble based on patient's age to complete this topic Medical Devices Implanted Type Area Continuous Process Coffee Roaster Device Identifier Shelf Expiration Date Model / Serial / Lot Justine Vines Vnsaint joseph berea 23 - [id number] Implanted:Qty: 1 on 08/14/2024 by Agustin Granda M.D., Ph.D. at [facility] CSF Management Device Brain Codman 05/30/2025 [id number] / / [id number] Shnt Vlv Ventric Csf W/Sphngrd - [id number] Implanted:Qty: 1 on 08/14/2024 by Agustin Granda M.D., Ph.D. at [facility] CSF Management Device Neck Integra 11/27/2028 [id number] / / [id number] Cath Peritoneal Antibiotic - [id number] Implanted:Qty: 1 on 08/14/2024 by Aaliyah Lazo M.D. at [facility] Hardware e.g. pins/screws/r ods Abdomen [employer]onic 11/08/2025 [id number] / / [id number] Knee Implant Knee Implant Bilateral: Knee Ocular Lens Ocular Lens Bilateral: Eye Procedures Procedure Name Priority Date/Time Associated Diagnosis Comments CT HEAD WITHOUT IV CONTRAST RAD - Routine (most inpatients and all outpatients) 09/20/2024 3:41 PM CDT Hydrocephalus Normal Pressure (HCC) NEUROLOGY GAIT DISORDERS LABORATORY Routine 09/20/2024 3:00 PM CDT Hydrocephalus Normal Pressure (HCC) NEUROLOGY IMAGE EXAM Routine 09/20/2024 3:00 PM CDT OUTSIDE DX SKELETAL Routine 08/15/2024 5 :00 PM CDT OUTSIDE DX GENERAL Routine 08/15/2024 4: 55 PM CDT OUTSIDE DX CHEST Routine 08/15/2024 4:50 PM CDT OUTSIDE DX SKELETAL Routine 08/15/2024 4 :[address] NEURO Routine 08/15/2024 4:[address] BODY Routine 08/15/2024 4:15 PM CDT GLUCOSE POCT, B Routine 08/15/2024 7:57 AM CDT GLUCOSE POCT, B Routine 08/14/2024 9:34 PM CDT GLUCOSE POCT, B Routine 08/14/2024 4:[address] HEAD WITHOUT IV CONTRAST RAD - Routine (most inpatients and all outpatients) 08/14/2024 12:44 PM CDT DX ADULT VETERINARY VIROLOGIST SHUNT SERIES RAD - Routine (most inpatients [...] CDT Hydrocephalus Normal Pressure (HCC) Preoperative Exam ALBUMIN, RANDOM, U Routine 06/14/2024 9: 30 AM SIDING INSTALLER Chronic Kidney Disease (CKD), Stage 3b Glomerular Filtration Rate (GFR) 30 To 44 (HCC) HEMOGLOBIN A1C, B Routine 06/07/2024 8:0 2 AM SIDING INSTALLER Diabetes Mellitus Type 2 With Diabetic Polyneuropathy (HCC) LIPID PANEL, S Routine 06/07/2024 8:02 AM SIDING INSTALLER Diabetes Mellitus Type 2 With Diabetic Polyneuropathy (HCC) BI BREAST SCREENING BILATERAL WITH TOMOSYNTHESIS RAD - Routine (most inpatients and all outpatients) 03/26/2023 1:09 PM CDT Screening Mammogram Breast Cancer from Last 3 Months or Most Recently Relevant to Health Maintenance Results * CT Head without IV Contrast (09/20/2024 3:41 PM CDT) Only the most recent of2 resultswithin the time period is included. Anatomical Region Laterality Modality Head, Neuroradiology [facility] , Neuroradiology [facility], [facility]adiology [facility] N/A Computed Tomography, Compute d Tomography 09/20/2024 [...] loss. IMPRESSION: No substantial interval change. us Carmen Petit APRN, C.N.P., M.S.N. IMG CT PRO CEDURES Final Result * NEUROLOGY GAIT DISORDERS LABORATORY (09/20/2024 3:00 PM CDT) Only the most recent of2 resultswithin the time period is included. Narrative Irma Osullivan M.B.B.S. - 09/20/2024 3:00 PM CDT Irma Osullivan M.B.B.S. 09/20/2024 5:12 PM Neurology Gait Disorders Laboratory Hydrocephalus Performed by: Irma Osullivan M.B.B.S. Authorized by: Carmen Petit APRN, C.Akosua, M.S.N. us Radha Moore APRNNPoly., M.S.N. NEUROLOGY ORDERABLES Final Result * Neurology gait disorders lab-Neurology Image Exam (09/20/2024 3:00 PM CDT) Only the most recent of2 resultswithin the time period is included. 09/20/2024 3:00 PM CDT Narrative IIMS - 09/20/2024 3:16 PM CDT This order has been created and auto-finalized to support the import of images acquired without order. The clinical documentation to support these images can be found on the encounter that produced images. us Provider Not In System IMG NON RAD IMAGING PROCE DURES Final Result [facility]IMS NA * XR SKULL <4V-Outside Skeletal Xray (08/15/2024 5:00 PM CDT) Only the most recent of2 resultswithin the time period is included. 08/15/2024 4:42 PM CDT Narrative [facility] - 08/15/2024 5:46 PM CDT This order has been created and auto-finalized to support the import of outside images. If available, original interpretation can be found on the Media Tab in Chart Review, in Document Viewer, as an image in InfinityView or as an Addendum. If a re-interpretation or overread is required please follow defined workflow. us Provider Not In System IMG DIAGNOSTIC IMAGING VA OCEDURES Final Result Performing Organization Address [facility] de Phone Number IIMS NA * XR abdomen min 2V-Outside Gen Dx Stdy (08/15/2024 4:55 PM CDT) 08/15/2024 4:47 PM CDT Narrative IIMS - 08/15/2024 5:45 PM CDT This order has been created and auto-finalized to support the import of outside images. If available, original interpretation can be found on the Media Tab in Chart Review, in Document Viewer, as an image in InfinityView or as an Addendum. If a re-interpretation or overread is required please follow defined workflow. us Provider Not In System IM DIAGNOSTIC IMAGING VA OCEDURES Final Result Performing Organization Address [facility] de Phone Number IIMS NA * XR chest 1V-Outside Chest Xray (08/15/2024 4:50 PM CDT) 08/15/2024 4:46 PM CDT Narrative IINM - 08/15/2024 5:45 PM CDT This order has been created and auto-finalized to support the import of outside images. If available, original interpretation can be found on the Media Tab in Chart Review, in Document Viewer, as an image in InfinityView or as an Addendum. If a re-interpretation or overread is required please follow defined workflow. us Provider Not In System IMG DIAGNOSTIC IMAGING VA OCEDURES Final Result Performing Organization Address [facility] de Phone Number IIMS NA * CT HEAD/BRAIN WO CON-Outside CT Neuro (08/15/2024 4:20 PM CDT) 08/15/2024 4:13 PM CDT Narrative IINM - 08/15/2024 5:48 PM CDT This order has been created [...] PROCEDURES Final R esult Performing Organization Address [facility] Co de Phone Number IIMS NA * CT CHEST WO CON-Outside CT Body (08/15/2024 4:15 PM CDT) 08/15/2024 4:13 PM CDT Narrative IIMS - 08/15/2024 5:48 PM CDT This order has been created [...] PROCEDURES Final R esult Performing Organization Address [facility] de Phone Number IIMS NA * Glucose, POCT (08/15/2024 7:57 AM CDT) Only the most recent of6 resultswithin the time period is included. Glucose, POCT, B 136 70 - 140 mg/dL 08/15/2024 8:01 AM CDT PCLX Site Capillary 08/15/2024 8:01 AM CDT PCLX Blood 08/15/2024 7:57 AM CDT 08/15/2024 8:02 AM CDT us Unknown Provider LAB POCT ORDERABLES-MANUAL Marina l Result Performing Organization Address City/[facility] Co de Phone Number POC [facility] [address] [place] [address], [facility] PCLX [facility] POC [address] [place] [address] * DX Adult VETERINARY VIROLOGIST Shunt Series (08/14/2024 12:24 PM CDT) Anatomical Region Laterality Modality Head, Chest, Abdomen, Neuror adiology RST LOS, Neuroradiology ARZ LOS, Muskuloskeletal FLA LOS N/A Digita l Radiography Impressions 08/14/2024 12:51 PM CDT Right posterior parietal approach Codman Certas plus programmable VETERINARY VIROLOGIST shunt. Tubing courses along the right neck and hemithorax before terminating within the right upper quadrant of the abdomen. No focal discontinuity. No acute findings within the visualized chest and abdomen. Multiple chronic right rib fractures. Multilevel spondylitic changes throughout the spine. Narrative 08/14/2024 12:51 PM CDT EXAM: DX ADULT VETERINARY VIROLOGIST SHUNT SERIES Procedure Note Cole Walker D.O. - 08/14/2024 EXAM: DX ADULT VETERINARY VIROLOGIST SHUNT SERIES IMPRESSION: Right posterior parietal approach Codman Certas plus programmable VPshunt. Tubing courses along the right neck and hemithorax beforeterminating within the right upper quadrant of the abdomen. No focaldiscontinuity. No acute findings within the visualized chest and abdomen. Multiple chronic right ribfractures. Multilevel spondylitic changes throughout the spine. Yvonne Haider M.D. [facility] PROC EDURES Final Result * [...] ETT location: oral VL device: glide scope [place] scope blade size: 3 Tube size: 7 [...] fibrotic tissue in the setting of priorinfection. us Agustin Granda M.D., Ph.D. IMG CT PROCEDURES F inal Result * Type and Screen (with Reflex Antibody ID) (08/08/2024 10:02 AM CDT) Pathologist [facility] ABORh B Pos Not applicable 08/09/2024 8:22 AM CDT ETRM Antibody Screen Negative Negative 08/09/2024 8:35 AM CDT ETRM Type & Screen Expiration 08/11/2024 23:59 08/09/2024 8:22 AM CDT ETRM Testing Location [facility] 08/09/2024 7:30 AM CDT ETRM Blood (Blood, Venous) 08/08/2024 10:02 AM CDT 08/09/2024 7:30 AM CDT us Agustin Granda M.D., Ph.D. LAB BLOOD BANK TEST ORDERABLES Final Result [facility] [address] [place] [address], [facility] ETRM [facility] [address] [place] [address] * (ABNORMAL) Basic Metabolic Panel (08/08/2024 10:02 AM CDT) Pathologist [facility] Potassium, P 4.7 3.6 - 5.2 mmol/L [...] 10:02 AM CDT 08/08/2024 1:10 PM CDT Laly LAKHANI, P.A.-C. LAB BLOOD ADD-ON Final Result [facility] [address] [place] [address], [facility] OWAT [facility] [place] [address] [place] [address] * Albumin, Random, Urine (06/14/2024 9:30 AM SIDING INSTALLER) Microalbumin <12.0 mg/L 06/14/2024 2:02 PM SIDING INSTALLER OWAT Comment:If clinically indica jim, contact the lab for additional testing. Creatinine 56 mg/dL 06/14/2024 2:02 PM SIDING INSTALLER OWAT Albumin/Creatinine Ratio <21 <25 mg/g 06/14/2024 2:02 PM SIDING INSTALLER OWAT Comment: This ratio may not correspond with the reference range because one or both of the values used to calculate the ratio was above or below the quantification limits. Urine (Urine, Midstream) 06/14/2024 9:30 AM SIDING INSTALLER 06/14/2024 1:05 PM SIDING INSTALLER us Laly Keli LAKHANI PKavyaA.-Sommer. LAB URINE ORDERAB LES Final Result [facility] [address] [place] [address], [place] OWAT [facility] [place] [address] [place] [address] * (ABNORMAL) Lipid Panel (06/07/2024 8:02 AM SIDING INSTALLER) Triglycerides 246(H) mg/dL 06/07/2024 4:47 PM SIDING INSTALLER OWAT Comment: ----REFERENCE VALUE---- Normal: <150 mg/dL Borderline High: 150-199 mg/dL High: 200-499 mg/dL Very High: > or =500 mg/dL Cholesterol, Total 326(H) mg/dL 2024 4:47 PM SIDING INSTALLER OWAT Comment: ----REFERENCE VALUE---- Desirable: < 200 mg/dL Borderline High: 200 - 239 mg/dL High: > or = 240 mg/dL Cholesterol, LDL, Calculated 232(H) mg/dL 06/07/2024 4:47 PM SIDING INSTALLER OWAT Comment: The markedly elevated LDL [...] HDL 44(L) >=50 mg/dL 06/07/2024 4:47 PM SIDING INSTALLER OWAT Cholesterol, Non-HDL, Calculated 282(H) mg/dL 06/07/2024 4:47 PM SIDING INSTALLER OWAT Comment: ----REFERENCE VALUE---- Desirable: <130 mg/dL Above Desirable: 130-159 mg/dL Borderline High: 160-189 mg/dL High: 190-219 mg/dL Very High: > or =220 mg/dL Fasting (8 HR or more) Yes 8:02 AM SIDING INSTALLER OWAT Blood (Blood, Venous) 06/07/2024 8:02 AM SIDING INSTALLER 06/07/2024 12:58 PM SIDING INSTALLER Ailin LiraA.-C. LAB BLOOD ADD-ON Final Result Performing Organization Address [facility] Co de Phone Number [facility] [address] [place] [address], [facility] OW[facility] [place] [facility] [address] [place] [address] * (ABNORMAL) Hemoglobin A1c (06/07/2024 8:02 AM SIDING INSTALLER) Hemoglobin A1c, B 5.9(H) 4.2 - 5.6 % 06/07/2024 3:15 PM SIDING INSTALLER OWAT Comment: Hemoglobin A1c values of 5.7-6.4 percent indicate an increased risk for developing diabetes mellitus. In diabetic patients, HbA1c goals should be discussed with healthcare provider. Blood (Blood, Venous) 06/07/2024 8:02 AM SIDING INSTALLER 06/07/2024 12:58 PM SIDING INSTALLER Laly LAKHANI, P.A.-C. LAB BLOOD ADD-ON Final Result Performing Organization Address [facility] Co de Phone Number [facility] [address] [place] [address], [facility] OWAT [facility] [place] [facility] [address] [place] [address] * BI Breast Screening Bilateral with Tomosynthesis [...] Mammogram ASSESSMENT: BI-RADS: 1: Negative. Laly LAKHANI, P.A.-Sommer. IMG BI PROCEDURES Final Result from Last 3 Months or Most Recently Relevant to Health Maintenance Insurance [facility] MEDICARE Advance Directives For more information, please contact: [phone] * Full Code (Latest Code Status on [...] DNR (Do Not Resuscitate): Discussed-Patient Care Teams Microeconomics Professor Relationship Specialty Start Date End Date Laly Dickey MPAS, P.A.-C. [address] [place] [address] NATASHA Gonzalez [phone] PCP - General Internal Medicine 07/28/22
--- OUTSIDE RECORDS SUMMARY | 2024-11-03 10:43 | XMS_ITS | Encounter Summary ---
Author Organization [facility] [employer] [facility] Address [address] [place] [address] [address] [place] [address] Care Team Providers Care Senior Mechanical Design Engineer Name Role Phone Gen Michaels MD Primary Care Provider [phone] Ambrosio Hill MD Primary Care Provider [phone] Ambrosio Hill MD Unavailable Provider, No Attributed RESOURCE Unavailable Unavailable Ambrosio Hill MD Unavailable + Ambrosio Hill MD Unavailable Natalie Estrada MD Unavailable [phone] Jakub Barr MD Unavailable [phone] Merary Ware INCOME TAX RETURN PREPARER-USABILITY STRATEGIST Unavailable [phone] Provider, No Attributed RESOURCE Unavailable Unavailable Ambrosio Hill MD Unavailable + Provider, No Attributed RESOURCE Unavailable Unavailable Laly Dickey PA-C Primary Care Provider + [phone] Encounter Details Date Type Department Care Team (Late st Contact Info) Description 12/18/2013 Dictated / No Visit [facility] FAMILY MEDICINE [address] [place] [address] Gen Michaels MD [address] [place] [address] Social History Tobacco Use Types [...] 12/18/2013 3:58 PM CDT 12/18/2013 RAJINDER VERMA [address] [address], [place] [address] MR#: [id number] CSN: Dear Rajinder: I have received the [...] P.S. If you have signed up for [employer], please message me that you have received this letter. 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 documented as of this encounter Care Teams Senior Mechanical Design Engineer Relationship Specialty Start Date End Date Gen Michaels MD [address] [place] [address] PCP - General Family Medicine 07/25/13 07/05/14 Ambrosio Hill MD [address] [place] [address] PCP - General Family Medicine 07/06/14 03/04/22 Ambrosio Hill MD [address] [place] [address] PCP - Attributed Provider 01/30/16 04/19/16 Provider, No Attributed, RESOURCE [address] PCP - Attributed Provider 04/20/16 04/21/16 Ambrosio Hill MD [address] [place] [address] PCP - Attributed Provider 04/22/16 11/21/20 Ambrosio Hill MD [address] [place] [address] PCP - Attributed Provider 11/22/20 03/23/22 Provider, No Attributed, RESOURCE [address] PCP - Attributed Provider 03/24/22 05/26/22 Ambrosio Hill MD [address] [place] [address] PCP - Attributed Provider 05/27/22 02/22/24 Provider, No Attributed, RESOURCE [address] PCP - Attributed Provider 02/23/24 Laly Dickey PA-C [address] [place] [phone] PCP - General Physician Bottle Washing Machine Operator 10/13/24 Natalie Estrada MD [address] [place] [address] Nephrology (Internal Medicine) 09/18/21 Jakub Barr MD [facility] [place] [address] Orthopedic Surgery 09/18/21 Merary Ware APRN-USABILITY STRATEGIST [address] [place] [address] [place] [address] USABILITY STRATEGIST - Oncology 09/18/21 documented as of this encounter
--- OUTSIDE RECORDS SUMMARY | 2024-11-03 10:43 | XMS_ITS | Encounter Summary ---
Author Organization [facility] Address [address] [place] [address] Care Team Providers Care Dump Motor Operator Name Role Phone Laly Dickey P.A.-C. Primary Care Pro vider Reason for Referral * Outpatient (Routine) - Authorized Specialty Diagnoses / Procedures Referred By Nemo morales Referred To Contact Neurology Ashley Watts P.A.-C. [address] [place] [phone] Phone: tel: fax: Otis Metz M.D. [address] [place] [address] Phone: tel: fax: Referral ID Status Reason Start Date Expiration Date V isits Requested Visits Authorized [id number] Authorized 09/21/2024 03/23/2026 1 1 Encounter Details Date Type Department Care Team (Late st Contact Info) Description 09/21/2024 Orders Only Department of Neurology in [place], [place] [address] [place] [phone] sAhley Watts P.A.-C. [address] [place] [phone] Social History Tobacco Use Types Packs/Day Years Used Date Smoking Tobacco: Former Cigarettes 2 30 0 11/13/1975 - 11/12/2005 Passive Smoke Exposure: Past Smokeless Tobacco: Never Comments:Quit smoking in 200 3 Alcohol Use Standard Drinks/Week Comments Not Currently 0 (1 standard drink = 0.6 oz pur e alcohol) [facility] Utilities Answer Date Recorded In the past 12 months has th e [employer], gas, oil, or water company threatened to [...] your living situation today? I have a [facility] place to live 08/14/2024 Comments No Sex and Gender Information Value Date Recorded Sex Assigned at Female 03/19/2023 10:10 AM CDT Legal Sex Female 1:31 PM ORDNANCE OFFICER Gender Identity Female 03/19/2023 10:10 AM CDT Sexual Orientation Not on file documented as of this encounter Plan of Treatment Scheduled Procedures Name Priority Associated Diagnoses Date/Ti me ARTHROPLASTY TOTAL REVERSE SHOULDER Fracture 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 Scheduled Referrals Name Type Priority Associated Diagnoses Orde r Schedule Neurology office visit (clinic) Outpatient Referral Routine Expected: 02/21/2025, Expires: 12/21/2025 documented as of this encounter Visit Diagnoses Not on filedocumented in this encounter Additional Health Concerns Assessment Noted Time PHQ-9 Depression Total Score: 0 07/05/19 25 10:01 AM ORDNANCE OFFICER documented as of this encounter Care Teams Dump Motor Operator Relationship Specialty Start Date End Date Laly Dickey MPAS, P.A.-C. [address] [place] [phone] PCP - General Internal Medicine 07/28/22 documented as of this encounter
--- OUTSIDE RECORDS SUMMARY | 2024-11-03 10:44 | XMS_ITS | Encounter Summary ---
Author Organization [facility] Address [address] [place] [address] [address] [place] [address] Care Team Providers Care Stringer Machine Tender Name Role Phone Gen Michaels MD Primary Care Provider [phone] Ambrosio Hill MD Primary Care Provider [phone] Ambrosio Hill MD Unavailable Provider, No Attributed RESOURCE Unavailable Unavailable Ambrosio Hill MD Unavailable + Ambrosio Hill MD Unavailable Natalie Estrada MD Unavailable [phone] Jakub Barr MD Unavailable [phone] Merary Ware BLADDER CHANGER-NIGHT SHIFT SUPERVISOR Unavailable [phone] Provider, No Attributed RESOURCE Unavailable Unavailable Ambrosio Hill MD Unavailable + Provider, No Attributed RESOURCE Unavailable Unavailable Laly Dickey PA-C Primary Care Provider + [phone] Encounter Details Date Type Department Care Team (Late st Contact Info) Description 04/07/2013 Dictated / No Visit [facility] FAMILY MEDICINE [address] [place] [address] Gen Michaels MD [address] [place] [address] Social History Tobacco Use Types [...] 04/07/2013 10:27 AM CST 04/07/2013 RAJINDER VERMA [address] [address], [place] [address] MR#: [id number] CSN: Dear Rajinder: I have received the report of your mammogram and it is normal. Sincerely, Gen Michaels M.D., Family Medicine [id number] ROLL MACHINE OFFBEARER * Gen Michaels MD - 04/07/2013 10:25 AM CST 04/07/2013 RAJINDER VERMA [address] [place], [place] [address] MR#: [id number] CSN: Dear Rajinder: I have received the [...] months. Sincerely, Gen Michaels M.D., Family Medicine [id number]/crf [id number] ROLL MACHINE OFFBEARER documented in this encounter Plan of Treatment Not on file documented as of this encounter Visit Diagnoses Not on filedocumented in this encounter Additional Health Concerns Infection Onset Date Last Indicated Resolved Time COVID-19 04/23/2020 04/23/2020 05/03/2020 11:5 7 PM CUT ROLL MACHINE OFFBEARER documented as of this encounter Care Teams Stringer Machine Tender Relationship Specialty Start Date End Date Gen Michaels MD [address] [place] [address] PCP - General Family Medicine 07/25/13 07/05/14 Ambrosio Hill MD [address] [place] [address] PCP - General Family Medicine 07/06/14 03/04/22 Ambrosio Hill MD [address] [place] [address] PCP - Attributed Provider 01/30/16 04/19/16 Provider, No Attributed, RESOURCE [address] PCP - Attributed Provider 04/20/16 04/21/16 Ambrosio Hill MD [address] [place] [address] PCP - Attributed Provider 04/22/16 11/21/20 Ambrosio Hill MD [address] [place] [address] PCP - Attributed Provider 11/22/20 03/23/22 Provider, No Attributed, RESOURCE [address] PCP - Attributed Provider 03/24/22 05/26/22 Ambrosio Hill MD [address] [place] [address] PCP - Attributed Provider 05/27/22 02/22/24 Provider, No Attributed, RESOURCE [address] PCP - Attributed Provider 02/23/24 Laly Dickey PA-C [address] [facility] [place]HA VARMA [phone] PCP - General Physician Travel Registered Nurse Oncology 10/13/24 Natalie Estrada MD [address] [place] [address] Nephrology (Internal Medicine) 09/18/21 Jakub Barr MD [address] [place] [address] Orthopedic Surgery 09/18/21 Merary Ware APRN-NIGHT SHIFT SUPERVISOR [address] [place] [address] NIGHT SHIFT SUPERVISOR - Oncology 09/18/21 documented as of this encounter
--- OUTSIDE RECORDS SUMMARY | 2024-11-03 10:44 | XMS_ITS | Encounter Summary ---
Author Organization [facility] [employer] [facility] Address [address] [place] [address] [address] [place] [address] Care Team Providers Care Consumer Credit Counselor Name Role Phone Ambrosio Hill MD Primary Care Provider [phone] Ambrosio Hill MD Unavailable Provider, No Attributed RESOURCE Unavailable Unavailable Ambrosio Hill MD Unavailable Ambrosio Hill MD Unavailable Natalie Estrada MD Unavailable [phone] Jakub Barr MD Unavailable [phone] Merary Ware CSR-HAZMAT TRUCK DRIVER Unavailable [phone] Provider, No Attributed RESOURCE Unavailable Unavailable Ambrosio Hill MD Unavailable Provider, No Attributed RESOURCE Unavailable Unavailable Laly Dickey PA-C Primary Care Provider + [phone] Encounter Details Date Type Department Care Team (Late st Contact Info) Description 12/27/2014 Hospital Telephone Encounter [facility] [address] [place] [address] Devan Rooney, [address] [place] [address] Social History Tobacco Use Types Packs/Day Years [...] On track( 015 5:00 PM CDT) Eli Fuentes, RN documented as of this encounter Visit Diagnoses Not on filedocumented in this encounter Additional Health Concerns Infection Onset Date Last Indicated Resolved Time COVID-19 04/23/2020 04/23/2020 05/03/2020 11:5 7 PM TECH BRAZER TESTER documented as of this encounter Care Teams Consumer Credit Counselor Relationship Specialty Start Date End Date Ambrosio Hill MD [address] [facility] [place] [address] PCP - General Family Medicine 07/06/14 03/04/22 Ambrosio Hill MD [address] [facility] [place] [address] PCP - Attributed Provider 01/30/16 04/19/16 Provider, No Attributed, RESOURCE [address] PCP - Attributed Provider 04/20/16 04/21/16 Ambrosio Hill MD [address] [address] PCP - Attributed Provider 04/22/16 11/21/20 Ambrosio Hill MD [address] [place] [address] PCP - Attributed Provider 11/22/20 03/23/22 Provider, No Attributed, RESOURCE [address] PCP - Attributed Provider 03/24/22 05/26/22 Ambrosio Hill MD [address] [place] [address] PCP - Attributed Provider 05/27/22 02/22/24 Provider, No Attributed, RESOURCE [address] PCP - Attributed Provider 02/23/24 Laly Dickey PA-C [address] [place] [address] [place] [phone] PCP - General Physician Loan Officer Assistant 10/13/24 Natalie Estrada MD [address] [place] [address] Nephrology (Internal Medicine) 09/18/21 Jakub Barr MD [facility] [place] [address] Orthopedic Surgery 09/18/21 Merary Ware, CSR-HAZMAT TRUCK DRIVER [address] [place] [address] HAZMAT TRUCK DRIVER - Oncology 09/18/21 documented as of this encounter
--- OUTSIDE RECORDS SUMMARY | 2024-11-03 10:44 | XMS_ITS | Clinical Summary ---
Author Organization [employer] Address [address] [place] [address] Care Team Providers Care Freight Car Loader Name Role Phone Natalie Estrada MD Unavailable [phone] Jakub Barr MD Unavailable [phone] Shawn Baker STRAIGHT SLICING MACHINE OPERATOR-A OPERATOR Unavailable [phone] Provider, No Attributed RESOURCE Unavailable Unavailable Laly Dickey PA-C Primary Care Provider [phone] Allergies Active Allergy Reactions Criticality Noted Date [...] a day in the evening 90 tablet 02/10/20 Active bumetanide (BUMEX) 1 mg tabletIndications: Chronic diastolic heart failure ([facility]) Take 1-2 tablets (1-2 mg) by mouth 2 times a day 360 tablet 02/10/20 Active venlafaxine (EFFEXOR XR) 150 mg extended release capsuleIndications :Depression with anxiety Take 1 capsule (150 mg) by mouth 1 time per day 90 capsule 02/10/20 Active gabapentin (NEURONTIN) 300 mg capsuleIndications :Diabetic peripheral neuropathy ([facility]) Take 3 capsules (900 mg) by mouth every night at bedtime 270 capsule 02/10/20 Active losartan 50 mg tabletIndications: Essential hypertension,Stage 3b chronic kidney disease ([facility]) Take 1 tablet (50 mg) by [...] :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) ([facility]) Inhale 2 puffs orally 1 time per day 12 g 02/10/20 Active amitriptyline (ELAVIL) 50 mg tabletIndications: Obstructive sleep apnea syndrome Take 3 tablets (150 mg) by mouth every night at bedtime 270 tablet 02/10/20 Active BD Ultra Fine lancets 33GIndications:Typ e 2 diabetes mellitus with complication, with long-term current use of insulin ([facility]) four per day 400 each 02/10/20 Active Blood Glucose Monitoring Suppl (TRUE METRIX METER) w/Device KITIndications:Typ e 2 diabetes mellitus with complication, with long-term current use of insulin ([facility]) 1 Device 4 times a day DX: E 11.8 1 each 02/10/20 Active dulaglutide (TRULICITY) 1.5 mg/0.5 mL subcutaneous injection (pen)Indications:T ype 2 diabetes mellitus with complication, with long-term current use of insulin ([facility]) Inject 0.5 mL (1.5 mg) subcutaneously 1 time a week 6 mL 02/10/20 Active insulin detemir (LEVEMIR FLEXTOUCH) subcutaneous injection (pen)Indications:T ype 2 diabetes mellitus with complication, with long-term current use of insulin ([facility]) Inject 32 Units subcutaneously 2 times a day 60 mL 02/10/20 Active insulin lispro (HUMALOG) 100 unit/mL (1 unit dial) subcutaneous inj (pen)Indications:T ype 2 diabetes mellitus with complication, with long-term current use of insulin ([facility]) Inject 30 Units subcutaneously 3 times a day with meals Adjust as indicated 81 mL 02/10/20 Active insulin needle (INSULIN NEEDLE) 31G X 8 mm (10/13) ShortIndications:T ype 2 diabetes mellitus with complication, with long-term current use of insulin ([facility]) Use as directed 300 each 02/10/20 Active metFORMIN (GLUCOPHAGE) 500 MG tabletIndications: Type 2 diabetes mellitus with complication, with long-term current use of insulin ([facility]) Take 1 tablet (500 mg) by mouth 2 times a day with meals 180 tablet 02/10/20 Active True Metrix Blood Glucose Test StripIndications:T ype 2 diabetes mellitus with complication, with long-term current use of insulin ([facility]) 1 Strip 400 each 4 02/10/20 22 Active traMADol (ULTRAM) 50 mg tabletIndications: Arthritis [...] oz pur e alcohol) Social Connection and Isolation Panel Answer Date Recorded In a typical week, how many times do you talk on the phone with family, friends, or neighbors? More than three times a week 04/23/2020 How often do you get togethe r with friends or relatives? Once a week 04/23/2020 How often do you attend chur ch or restoration services? More than 4 times per year 04/23/2020 Do you belong to any clubs o r organizations such as yarsanism groups, unions, fraternal or athletic groups, or [...] Date Recorded PHQ-9 Total (Adult) 0 02/09/2022 [facility] of Occupat ional [facility] [place] - Occupational Stress Questionnaire Answer Date Recorded [...] Start Date Job End Date retired from [employer] Not on file Not on fi le [...] 172.7 cm (5' 8) 05/12/2021 6:34 AM TANK PUMPER PANELBOARD Body Mass Index 39.43 05/12/2021 6:34 AM TANK PUMPER PANELBOARD Plan of Treatment Health Maintenance Due Date Last Done Comments RSV Vaccine, Adult (1 - Risk 60-74 years 1-dose series) 2013 Ophthalmology Exam 11/07/2022 11/07/2021, 0 10/22/2020, 10/06/2019, Additional history exists Diabetic Foot Exam 02/09/2023 02/09/2022, 1 06/17/2020, 04/17/2021, Additional history exists ALT 04/27/2023 04/27/2020, 04/01, 04/25/2020, Additional history exists AST 04/27/2023 04/27/2020, 04/01, 04/25/2020, Additional history exists Covid-19 Vaccine ( season) 2024 02/09/2022, 12/09/2021, 07/03/2021, Additional history exists Mammogram 03/26/2024 03/26/2023, 09/0 01/2022, 01/20/2021, Additional history exists TDAP/TD VACCINE (3 - Td or Tdap) 06/12/2024 06/12/2014, 02/15/2013 Platelets 09/29/2024 09/29/2021, 05/0 07/2021, 06/06/2020, Additional history exists Hemoglobin A1C Every 6 Months 12/05/2024 06/07/2024, 06/07/2024, 12/01/2023, Additional history exists Medicare Yearly Wellness Visit 02/13/2025 02/14/2024, 12/18/2022, 01/15/2021 Microalbumin 06/14/2025 06/14/2024, 07/30, 09/29/2021, Additional history exists Creatinine 08/15/2025 08/15/2024, 07/29, 08/08/2024, Additional history exists Lipid Screening 08/15/2025 08/15/2024, 07/29, 06/07/2024, Additional history exists Colonoscopy 05/12/2026 05/12/2021, 09/26/2015 DEXA/Heel Scan 01/12/2034 01/12/2019 Hepatitis C Screening Completed 10/14/2016 Pneumococcal Vaccine 50yr + Completed 03/02, 03/22/2018, 02/15/2013, Additional history exists Zoster Vaccine Completed 07/14/2019, 04/30, 02/15/2013 Annual Lung Screen Discontinued 06/19/2022, 06/29/2020, 04/23/2020, Additional history exists Influenza Vaccine Completed 02/14/2024, , 02/09/2022, Additional history exists Hepatitis B Vaccine Aged [...] RN HGB A1C < 8 Result Component 5.9( 8:02 AM TANK PUMPER PANELBOARD) No Geovanna Lerner MD Medical Devices Implanted Type Area Carding Utility Tender Device Identifier Shelf Expiration Date Model / Serial / Lot Cmnt Simplex P W Tobramyacin N 6197-9-010 Bx10/Ea - [id number] Implanted:Qty: 1 on 11/26/2015 by Jakub Barr MD at [facility] Other Left: KNEE DAVID 08/28/2016 6197-9-001 / N/A / [id number] Description:Verified by Dr. Barr and surgical team. Cmnt Simplex P W Tobramyacin N 6197-9-010 Bx10/Ea - [id number] Implanted:Qty: 1 on 11/26/2015 by Jakub Barr MD at [facility] Other Right: KNEE DAVID 08/28/2016 6197-9-001 / N/A / [id number] Knee Psn Asf Psve Lft11 6-9 Ef N 08-6766-672-11 Ea - [id number] Implanted:Qty: 1 on 11/26/2015 by Jakub Barr MD at [facility] Total Jt Knee Left: KNEE DESIREE 08/28/2020 42-5124-00 7-11 / N/A / [id number] Description:Verified by Dr. Barr and surgical team. Knee Psn Ptla All Pe Ve 38mm N 86-7408-100-38 Ea - [id number] Implanted:Qty: 1 on 11/26/2015 by Jakub Barr MD at [facility] Total Jt Knee Right: KNEE DESIREE 04/29/2020 42-5402-00 0-38 / N/A / [id number] Description:Verified by Dr. Barr and surgical team. Knee Psn Fem Pscmnt Std Rt Sz9 N 16-7298-882-02 Ea - [id number] Implanted:Qty: 1 on 11/26/2015 by Jakub Barr MD at [facility] Total Jt Knee Right: KNEE DESIREE 05/30/2025 42-5006-06 6-02 / N/A / [id number] Description:Verified by Dr. Barr and surgical team. Knee Psn Tib Stem 5d Sz F Rt N 16-7095-555-02 Ea - [id number] Implanted:Qty: 1 on 11/26/2015 by Jakub Barr MD at [facility] Total Jt Knee Right: KNEE DESIREE 08/28/2025 42-5320-07 5- / N/A / [id number] Description:Verified by Dr. Barr and surgical team. Knee Psn Asf Ps Ve Rt13 6-9 Ef N 20-8990-699-13 Ea - [id number] Implanted:Qty: 1 on 11/26/2015 by Jakub Barr MD at [facility] Total Jt Knee Right: KNEE DESIREE 12/29/2019 42-5224-00 - / N/A / [id number] Description:Verified by Dr. Barr and surgical team. Knee Psn Fem Pscmnt Std Lftsz9 N 52-2065-183-01 Ea - [id number] Implanted:Qty: 1 on 11/26/2015 by Jakub Barr MD at [facility] Total Jt Knee Left: KNEE DESIREE 09/27/2025 42-5006-06 6- / N/A / [id number] Description:Verified by Dr. Barr and surgical team. Knee Psn Tib Stem 5d Sz F Lft N 02-5571-843-01 Ea - [id number] Implanted:Qty: 1 on 11/26/2015 by Jakub Barr MD at [facility] Total Jt Knee Left: KNEE DESIREE 10/28/2025 42-5320-07 5- / N/A / [id number] Description:Verified by Dr. Barr and surgical team. Knee Psn Ptla All Pe Ve 38mm N 27-0673-498-38 Ea - [id number] Implanted:Qty: 1 on 11/26/2015 by Jakub Barr MD at [facility] Total Jt Knee Left: KNEE DESIREE 10/29/2019 42-5402-00 0-38 / N/A / [id number] Description:Verified by Dr. Barr and surgical team. [id number] Implanted:Qty: 1 on 10/22/2016 by Young Coles MD Right: BREAST 01/29/2017 / / [id number] Procedures Procedure Name Priority Date/Time Associated Diagnosis Comments CT CHEST WITHOUT CONTRAST Routine 06/19/2022 1:18 PM TANK PUMPER PANELBOARD Lung nodule MAMMOGRAM JENNIFER DIGITAL SCREENING KIM [...] COMPREHENSIVE METABOLIC PANEL Routine 04/27/2020 5:30 AM TANK PUMPER PANELBOARD DEXA SCAN Routine 01/12/2019 2:57 PM CDT History of menopause HEP C ANTIBODY REFLEX TO QUANTITATIVE CONFIRMATION Routine 10/14/2016 10:17 AM CDT Need for hepatitis C screening test from Last 3 Months or Most Recently Relevant to Health Maintenance Results * CT CHEST WITHOUT CONTRAST (06/19/2022 1:18 PM TANK PUMPER PANELBOARD) Anatomical Region Laterality Modality Chest, Lung Computed Tomogra phy 06/19/2022 4:38 PM TANK PUMPER PANELBOARD Narrative 06/19/2022 4:44 PM TANK PUMPER PANELBOARD Patient Name: ANNA VERMA Date of : [...] Roman Guzman MD on 06/19/2022 4:44 PM TANK PUMPER PANELBOARD Patient/Procedure Information: [facility] MRN/MARGE: [id number] Order Number: [id number] Accession Number: [id number] Ordering Provider: SHAWN BAKER Authorizing Provider: SHAWN BAKER Procedure Note Roman Guzman MD - 06/19/2022 [...] Roman Guzman MD on 06/19/2022 4:44 PM TANK PUMPER PANELBOARD Patient/Procedure Information: [facility] MRN/MARGE: [id number] Order Number: [id number] Accession Number: [id number] Ordering Provider: SHAWN BAKER Authorizing Provider: SHAWN BAKER Authorjagdish Provider Result Type Result Stat Shawn Baker STRAIGHT SLICING MACHINE OPERATOR-A OPERATOR CT Final R esult * MAMMOGRAM JENNIFER DIGITAL SCREENING KIM (02/06/2022 2:16 PM CDT) Anatomical Region Laterality Modality Breast Bilateral Mammography 02/09/2022 11:4 2 AM CDT Narrative 02/09/2022 11:44 AM CDT Patient Name: ANNA VERMA Date of : 1955 Procedure: MAMMOGRAM JENNIFER DIGITAL SCREENING IKM Date of Service: 02/06/2022 EXAM: MAMMOGRAM JENNIFER [...] 11:44 AM CDT Patient/Procedure Information: [facility] MRN/MARGE: [id number] Order Number: [id number] Accession Number: [id number] Ordering Provider: GEOVANNA LERNER Authorizing Provider: GEOVANNA LERNER us Geovanna Lerner MD MAMMOGRAPHY Final Result * (ABNORMAL) LIPID PANEL (02/06/2022 1:40 PM CDT) Cholesterol 162 100 - 200 mg/dL 02/06/2022 2:33 PM CDT [facility] Triglyceride 284(H) 35 - 150 mg/dL 02/06/2022 2:33 PM CDT [facility] HDL 54 40 - 60 mg/dL 02/06/2022 2:33 PM CDT [facility] LDL Direct 61 30 - 130 mg/dL 02/06/2022 2:33 PM CDT [facility] Fasting Yes Yes, No, Unknown 02/06/2022 2:33 PM CDT [facility] Blood BLOOD SPECIMEN / Unknown Venipuncture / Unknown 02/06/2022 1:40 PM CDT 02/06/2022 1:40 PM CDT Geovanna Lerner MD LAB BLOOD Final Result [facility] [address] [place] [address] * (ABNORMAL) GLYCATED HEMOGLOBIN (02/06/2022 1:40 PM CDT) Hgb A1C 7.1(H) 4.6 - 5.6 % 02/06/2022 2:11 PM CDT [facility] Blood BLOOD SPECIMEN / Unknown Venipuncture / Unknown 02/06/2022 1:40 PM CDT 02/06/2022 1:40 PM CDT Narrative [facility] - 02/06/2022 2:11 PM CDT Reference Range 4.6-5.6% Prediabetic Range 5.7-6.4% Diabetic Range >6.5% us Geovanna Lerner MD LAB BLOOD Final Result [facility] [address] [place], [place] [id number] * (ABNORMAL) BASIC METABOLIC PANEL (02/06/2022 1:40 PM CDT) Pathologist [facility] Glucose 121(H) 70 - 100 mg/dL 02/06/2022 2:24 PM CDT [facility] BUN 19(H) 7 - 17 mg/dL 02/06/2022 2:24 PM CDT [facility] Creatinine 1.40(H) 0.50 - 1.00 mg/dL 02/06/2022 2:24 PM CDT [facility] BUN/Creatinine Ratio 13.6(L) 15.0 - 20.0 02/06/2022 2:24 PM CDT [facility] Sodium 140 135 - 145 meq/L 02/06/2022 2:24 PM CDT [facility] Potassium 4.6 3.5 - 5.1 meq/L 02/06/2022 2:24 PM CDT [facility] Chloride 102 98 - 107 meq/L 02/06/2022 2:24 PM CDT [facility] CO2 30 22 - 30 meq/L 02/06/2022 2:24 PM CDT [facility] Anion Gap with K 13 6 - 20 meq/L 02/06/2022 2:24 PM CDT [facility] Calcium 9.2 8.4 - 10.2 mg/dL 02/06/2022 2:24 PM CDT [facility] Age 66 Years 02/06/2022 2:24 PM CDT [facility] eGFR Non- 37 mL/min/1.73 m2 02/06/2022 2:24 PM CDT [facility] eGFR 45 mL/min/1.73 m2 02/06/2022 2:24 PM CDT [facility] Comment: The estimated Glomerular Filtration [...] Unknown 02/06/2022 2:24 PM CDT [facility] Blood BLOOD SPECIMEN / Unknown Venipuncture / Unknown 02/06/2022 1:40 PM CDT 02/06/2022 1:40 PM CDT Geovanna Lerner MD LAB BLOOD Final Result [address] [address] * DILATED EYE EXAM - OUTSIDE RESULT (11/07/2021) Diabetic Eye Exam (External Result): Normal [facility] Anatomical Region Laterality Modality Other Abstract Provider OPHTHALMOLOGY SERVICES ORDERAB LES Final Result * PROTEIN / CREATININE INDEX, URINE (09/29/2021 11:27 AM CDT) Protein Total Urine <6.8 <14.0 mg/dL 09/29/2021 10:13 PM T [facility] Creatinine Urine 79.2 No Reference Range Established mg/dL 09/29/2021 10:13 PM T [facility] Protein/Creati nine Index 09/29/2021 10:13 PM T [facility] Comment:Unable to calculate Protein/Creatinine Ratio. Urine URINE SPECIMEN / Unknown 09/29/2021 11:27 AM CDT 09/29/2021 11:27 AM CDT us Natalie Estrada MD LAB NON BLOOD Final Result [address] [address] * (ABNORMAL) COMPREHENSIVE METABOLIC PANEL (04/27/2020 5:30 AM TANK PUMPER PANELBOARD) Glucose 190(H) 70 - 100 mg/dL 04/27/2020 6:19 AM [facility] BUN 18(H) 7 - 17 mg/dL 04/27/2020 6:19 AM TANK PUMPER PANELBOARD [facility] Creatinine 0.80 0.50 - 1.00 mg/dL 04/27/2020 6:19 AM [facility] BUN/Creatinine Ratio 22.5(H) 15.0 - 20.0 04/27/2020 6:19 AM TANK PUMPER PANELBOARD [facility] Sodium 138 135 - 145 meq/L 04/27/2020 6:19 AM TANK PUMPER PANELBOARD [facility] Potassium 4.1 3.5 - 5.1 meq/L 04/27/2020 6:19 AM TANK PUMPER PANELBOARD [facility] Chloride 108(H) 98 - 107 meq/L 04/27/2020 6:19 AM TANK PUMPER PANELBOARD [facility] CO2 22 22 - 30 meq/L 04/27/2020 6:19 AM TANK PUMPER PANELBOARD [facility] Anion Gap with K 12 6 - 20 meq/L 04/27/2020 6:19 AM TANK PUMPER PANELBOARD [facility] Calcium 8.9 8.4 - 10.2 mg/dL 04/27/2020 6:19 AM TANK PUMPER PANELBOARD [facility] [employer] Protein Total 6.7 6.3 - 8.2 g/dL 04/27/2020 6:19 AM TANK PUMPER PANELBOARD [facility] [employer] [facility] Albumin 3.6 3.5 - 5.0 g/dL 04/27/2020 6:19 AM [facility] Alkaline Phosphatase 71 38 - 126 U/L 04/27/2020 6:19 AM [facility] AST - SGOT 48(H) 15 - 46 U/L 04/27/2020 6:19 AM [facility] ALT - SGPT 37(H) 0 - 35 U/L 04/27/2020 6:19 AM [facility] Bilirubin Total <0.8 0.2 - 1.3 mg/dL 04/27/2020 6:19 AM [facility] Corrected Calcium 9.2 8.4 - 10.2 mg/dL 04/27/2020 6:19 AM [facility] Age 65 Years 04/27/2020 6:19 AM [facility] eGFR Non- 72 mL/min/1.7 3m2 04/27/2020 6:19 AM [facility] eGFR 87 mL/min/1.7 3m2 04/27/2020 6:19 AM [facility] Blood BLOOD SPECIMEN / Unknown Venipuncture / Unknown 04/27/2020 5:30 AM TANK PUMPER PANELBOARD 04/27/2020 5:55 AM TANK PUMPER PANELBOARD Lynda Sandoval MD LAB BLOOD Final Result [address] [address] * DEXA SCAN (01/12/2019 2:57 PM CDT) [...] trademark of the World [employer]ating [employer] [address] [facility] [employer] [facility], [employer] [place] [place]. Finalized by: Sara Boucher MD on 01/17/2019 5:11 PM CDT Patient/Procedure Information: [facility] [employer] [facility] MRN/MARGE: [id number] Order Number: [id number] Accession Number: [id number] Ordering Provider: GEOVANNA LERNER Authorizing Provider: GEOVANNA [...] atrademark of the [employer] [address] [facility], [place] [employer] [place], [place]. Finalized by: Sara Boucher MD on 01/17/2019 5:11 PM CDT Patient/Procedure Information: [facility] MRN/MARGE: [id number] Order Number: [id number] Accession Number: [id number] Ordering Provider: GEOVANNA LERNER Authorizing Provider: GEOVANNA LERNER us Geovanna Lerner MD MAMMOGRAPHY Final Result * (ABNORMAL) HEPATITIS C ANTIBODY REFLEX TO HCV RNA CONFIRMATION (10/14/2016 10:17 AM CDT) Hepatitis C Antibody Interp Reactive( A) Nonreactive 10/14/2016 11:28 PM CDT [facility] Comment:Confirmatory testing sent to [facility]. Blood BLOOD SPECIMEN / Unknown Venipuncture / Unknown 10/14/2016 10:17 AM CDT 10/14/2016 10:16 AM CDT us Geovanna Lerner MD LAB BLOOD Final Result [facility] [address] [place] [address] from Last 3 Months or Most Recently Relevant to Health Maintenance Advance Directives For more information, please contact: [phone] Documents on File Type Date Recorded Patient Color Receiver Expl anation Advance Directives and Living Will [...] 7:32 AM 09/26/2015 5:57 PM Care Teams Freight Car Loader Relationship Specialty Start Date End Date Provider, No Attributed, RESOURCE [address] PCP - Attributed Provider 02/23/24 Laly Dickey PA-C [address] [place] [phone] PCP - General Physician Presentation Specialist 10/13/24 Natalie Estrada MD [address] [place] [address] Nephrology (Internal Medicine) 09/18/21 Jakub Barr MD [facility] [place] [address] Orthopedic Surgery 09/18/21 Shawn Baker, STRAIGHT SLICING MACHINE OPERATOR-A OPERATOR [address] [place] [id number] A OPERATOR - Oncology 09/18/21
--- OUTSIDE RECORDS SUMMARY | 2024-11-03 10:44 | XMS_ITS | Encounter Summary ---
Author Organization [facility] Address [address] [place] [address] Care Team Providers Care Protective Signal Operations Supervisor Name Role Phone Laly Dickey P.A.-C. Primary Care Pro vider Encounter Details Date Type Department Care Team (Latest Contact Info) Description 08/15/2024 Intake [facility] Social History Tobacco Use Types Packs/Day Years Used Date Smoking Tobacco: Former Cigarettes 2 30 0 11/13/1975 - 11/12/2005 Passive Smoke Exposure: Past Smokeless Tobacco: Never Comments:Quit smoking in 200 3 Alcohol Use Standard Drinks/Week Comments Not Currently 0 (1 standard drink = 0.6 oz pur e alcohol) [facility] Utilities Answer Date Recorded In the past 12 months has [facility] [employer], gas, oil, or water [employer] threatened to shut off services in your [...] living situation today? I have a [facility] place to live 08/14/2024 Comments No Sex and Gender Information Value Date Recorded Sex Assigned at Female 03/19/2023 10:10 AM CDT Legal Sex Female 1:31 PM CREAM GATHERER Gender Identity Female 03/19/2023 10:10 AM CDT [...] Total Score: 0 07/05/19 25 10:01 AM CREAM GATHERER documented as of this encounter Care Teams Protective Signal Operations Supervisor Relationship Specialty Start Date End Date Laly Dickey MPAS, P.A.-C. [address] [place] [phone] PCP - General Internal Medicine 07/28/22 documented as of this encounter
--- OUTSIDE RECORDS SUMMARY | 2024-11-03 10:44 | XMS_ITS | Encounter Summary ---
Author Organization [facility]! formerly [facility] Address [address] [place] [address] [address] [place] [address] Care Team Providers Care Railcar Brake Operator Name Role Phone Gen Michaels MD Primary Care Provider [phone] Ambrosio Hill MD Primary Care Provider [phone] Ambrosio Hill MD Unavailable Provider, No Attributed RESOURCE Unavailable Unavailable Ambrosio Hill MD Unavailable + Ambrosio Hill MD Unavailable Natalie Estrada MD Unavailable [phone] Jakub Barr MD Unavailable [phone] Merary Ware DIGITAL MEDIA SALES CONSULTANT-PETROLEUM REFINING EQUIPMENT OPERATOR Unavailable [phone] Provider, No Attributed RESOURCE Unavailable Unavailable Ambrosio Hill MD Unavailable + Provider, No Attributed RESOURCE Unavailable Unavailable Laly Dickey PA-C Primary Care Provider + [phone] Encounter Details Date Type Department Care Team (Late st Contact Info) Description 2014 Dictated / No Visit [facility] [address] [place] [address] Gen Michaels MD [address] [place] [address] Social History Tobacco Use Types [...] 2014 11:01 AM CDT 2014 RAJINDER VERMA [address] [address], [place] [address] MR#: [id number] CSN: Dear Rajinder: I have received the [...] P.S. If you have signed up for [employer], please message me that you have received this letter. [id number] documented in this encounter Plan of Treatment Not on file documented as of this encounter Visit Diagnoses Not on filedocumented in this encounter Additional Health Concerns Infection Onset Date Last Indicated Resolved Time COVID-19 04/23/2020 04/23/2020 05/03/2020 11:5 7 PM HOSIERY REPAIRER documented as of this encounter Care Teams Railcar Brake Operator Relationship Specialty Start Date End Date Gen Michaels MD [address] [facility] [place] [address] PCP - General Family Medicine 07/25/13 07/05/14 Ambrosio Hill MD [address] [place] [address] PCP - General Family Medicine 07/06/14 03/04/22 Ambrosio Hill MD [address] [place] [address] PCP - Attributed Provider 01/30/16 04/19/16 Provider, No Attributed, RESOURCE [address] PCP - Attributed Provider 04/20/16 04/21/16 Ambrosio Hill MD [address] [place] [address] PCP - Attributed Provider 04/22/16 11/21/20 Ambrosio Hill MD [address] [place] [address] PCP - Attributed Provider 11/22/20 03/23/22 Provider, No Attributed, RESOURCE [address] PCP - Attributed Provider 03/24/22 05/26/22 Ambrosio Hill MD [address] [place] [address] PCP - Attributed Provider 05/27/22 02/22/24 Provider, No Attributed, RESOURCE [address] PCP - Attributed Provider 02/23/24 Laly Dickey PA-C [address] [place] [address] NATASHA VARMA [address] PCP - General Physician Bed Spring Maker 10/13/24 Natalie Estrada MD [address] [place] [address] Nephrology (Internal Medicine) 09/18/21 Jakub Barr MD [facility] [place] [address] Orthopedic Surgery 09/18/21 Merary Ware APRN-PETROLEUM REFINING EQUIPMENT OPERATOR [address] [place] [address], [place] [address] PETROLEUM REFINING EQUIPMENT OPERATOR - Oncology 09/18/21 documented as of this encounter
--- OUTSIDE RECORDS SUMMARY | 2024-11-03 10:44 | XMS_ITS | Encounter Summary ---
Author Organization [facility] Address [address] [place] [address] Care Team Providers Care Hr Business Partner Name Role Phone Laly Dickey P.A.-C. Primary [...] = 0.6 oz pur e alcohol) [facility] Utilities Answer Date Recorded In the past 12 months has e electric, gas, oil, or water [employer] threatened to shut off services in your [...] your living situation today? 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 - 06/21/2024 11:06 AM CST [facility]: ATC referral SUBJECTIVE Referral received from [facility]missions [facility] Transfer [facility] on 06/21/24, as part of hospital transfer request from [facility], [address] [place] [address] (phone: [phone]). OBJECTIVE This patient was accepted for transfer prior to the assessment process. This is a 69 y.o. year old female from [address] [place] [phone]. The patient was admitted to their facility on 06/20/24 for Progressive Parotitis. The physician is requesting transfer. The family is aware of, and agrees with, the request to transfer. Reason for transfer request: higher level of care, patient had an upcoming [facility] appointment. Patient is unable to make their [...] Daughter who is her decision maker, Ivy [phone] Anticipated discharge disposition according to referring facility: [...] to relay this information to the family. Leola Shea., Nedra.S.W. 06/21/2024 FUNDER documented in this encounter Plan of Treatment Scheduled Procedures Name Priority Associated Diagnoses Date/Ti me ARTHROPLASTY TOTAL REVERSE SHOULDER Fracture 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 documented as of this encounter Visit Diagnoses Not on filedocumented in this encounter Additional Health Concerns Assessment Noted Time PHQ-9 Depression Total Score: 5 02/14/20 24 9:00 AM CDT documented as of this encounter Care Teams Hr Business Partner Relationship Specialty Start Date End Date Laly Dickey MPAS, P.A.-C. [address] [place] [phone] PCP - General Internal Medicine 07/28/22 documented as of this encounter
--- OUTSIDE RECORDS SUMMARY | 2024-11-03 10:44 | XMS_ITS | Encounter Summary ---
Author Organization [place] [employer] [facility] Address [address] [place] [address] [address] [place] [address] Care Team Providers Care Dispatcher Electric Power Name Role Phone Ambrosio Hill MD Primary Care Provider [phone] Ambrosio Hill MD Unavailable Provider, No Attributed RESOURCE Unavailable Unavailable Ambrosio Hill MD Unavailable Ambrosio Hill MD Unavailable Natalie Estarda MD Unavailable [phone] Jakub Barr MD Unavailable [phone] Merary Ware PROTOHISTORIAN-PROFESSOR OF LAW Unavailable [phone] Provider, No Attributed RESOURCE Unavailable Unavailable Ambrosio Hill MD Unavailable Provider, No Attributed RESOURCE Unavailable Unavailable Laly Dickey PA-C Primary Care Provider + [phone] Encounter Details Date Type Department Care Team (Late st Contact Info) Description 12/17/2015 Dictated / No Visit [facility] [address] [place] [address] Ambrosio Hill MD [address] [place], [place] [address] Social History Tobacco Use Types Packs/Day Years [...] Hill MD - 12/17/2015 12:00 AM CDT [facility] Patient Report PROVIDER: Ambrosio Hill M.D., Family Medicine LOCATION OF CARE: DATE OF SERVICE: 12/17/2015 PATIENT: RAJINDER VERMA MR#: [id number] CSN: : 1955 SEX: F HOME: WORK: PRISON DISCHARGE SUMMARY [facility] SITE: [place], [place] DATE OF ADMISSION: 12/03/2015 DATE OF DISCHARGE: 12/17/2015 ADMITTING DIAGNOSIS: Weakness status post total knee arthroplasty. FINAL DIAGNOSIS: Weakness status post total knee arthroplasty. OTHER DIAGNOSES: As listed in the attached note. COMPLICATIONS: None. PROCEDURES: None. PRISON COURSE: Patient was admitted for rehabilitation following bilateral total knee arthroplasty. Her blood pressures were managed during her senior care stay and at the time of discharge [...] followups. Ambrosio Hill M.D., Family Medicine cc: [facility] Job ID/Trans ID: [id number] Doc ID: [id number] FOREST ECOLOGIST FOREST ECOLOGIST documented in this encounter Plan of Treatment Not on file documented as of this encounter Goals Goal Patient Goal Type Associated Problems Recent Progress Patient-Stated? Author DIET - REDUCE FAT AND PORTION INTAKE Diet On track( 015 5:01 PM CDT) No Eli Woods, RN LIFESTYLE - CHECK BLOOD SUGARS 3-4 times/day, focusing on premeal and bedtime. Lifestyle On track( 015 5:00 PM CDT) Eli Fuentes, RN documented as of this encounter Visit Diagnoses Not on filedocumented in this encounter Additional Health Concerns Infection Onset Date Last Indicated Resolved Time COVID-19 04/23/2020 04/23/2020 05/03/2020 11:5 7 PM FOREST ECOLOGIST documented as of this encounter Care Teams Dispatcher Electric Power Relationship Specialty Start Date End Date Ambrosio Hill MD [address] [facility] [place] [address] PCP - General Family Medicine 07/06/14 03/04/22 Ambrosio Hill MD [address] [facility] [address] PCP - Attributed Provider 01/30/16 04/19/16 Provider, No Attributed, RESOURCE [address] PCP - Attributed Provider 04/20/16 04/21/16 Ambrosio Hill MD [address] [facility] [place] [address] PCP - Attributed Provider 04/22/16 11/21/20 Ambrosio Hill MD [address] [facility] [place] [address] PCP - Attributed Provider 11/22/20 03/23/22 Provider, No Attributed, RESOURCE [address] PCP - Attributed Provider 03/24/22 05/26/22 Ambrosio Hill MD [address] [facility] [place] [address] PCP - Attributed Provider 05/27/22 02/22/24 Provider, No Attributed, RESOURCE [address] PCP - Attributed Provider 02/23/24 Laly Dickey PA-C [address] [place] [address] [place] [address] PCP - General Physician Cnc Machinist 10/13/24 Natalie Estrada MD [address] [facility] [address] Nephrology (Internal Medicine) 09/18/21 Jakub Barr MD [facility] [place] [address] Orthopedic Surgery 09/18/21 Mreary Ware, PROTOHISTORIAN-PROFESSOR OF LAW [address] [place] [address] PROFESSOR OF LAW - Oncology 09/18/21 documented as of this encounter
--- NOTE | 2024-11-03 11:03 | ED.GENADULT ---
HPI - General Adult General Chief complaint: Unspecified Complaint, Adult Stated complaint: blisters on feet- triage sent here Time Seen by Provider: 11/03/24 10:53 Source: patient Mode of arrival: ambulatory Limitations: no limitations History of Present Illness HPI narrative: 69-year-old female presenting today for follow-up of blisters on her foot. Patient was seen 1 week ago by her primary care provider where she was found to have 2 blisters on her feet, 1 on the great toe and 1 on the 2nd toe of the left foot. They were un roofed at that time when she was placed on cephalexin. Patient is concerned that they are not healing properly and was told to come to the emergency department for evaluation. She denies any systemic symptoms. Denies pain of the foot, no drainage at the site of the blisters. She is concerned because there is some slight redness around 1 of the blisters and she is noticing perhaps new blisters on the 3rd and 4th toe. Patient does have diabetes and probable peripheral neuropathy. Related Data Home Medications ?Medication ?Instructions ?Recorded ?Confirmed albuterol sulfate 90 mcg/actuation 2 puff inhalation Q4H PRN 10/10/23 11/03/24 aerosol inhaler amitriptyline 50 mg tablet 150 mg PO HS 10/10/23 11/03/24 aspirin 81 mg tablet,delayed 81 mg PO HS 10/10/23 11/03/24 release atorvastatin 80 mg tablet 80 mg PO DAILY 10/10/23 11/03/24 diclofenac sodium 1 % topical gel 4 g topical QID PRN 10/10/23 11/03/24 ezetimibe 10 mg tablet 10 mg PO DAILY 10/10/23 11/03/24 gabapentin 300 mg capsule 300 mg PO HS 10/10/23 11/03/24 multivitamin with minerals 1 cap PO DAILY 10/10/23 11/03/24 omeprazole 40 mg capsule,delayed 40 mg PO BID 10/10/23 11/03/24 release tiotropium bromide 2.5 2 inh inhalation Q24H 10/10/23 11/03/24 mcg/actuation mist for inhalation (Spiriva Respimat) torsemide 20 mg tablet 80 mg PO DAILY 10/10/23 11/03/24 venlafaxine 150 mg 150 mg PO DAILY 10/10/23 11/03/24 capsule,extended release 24 hr losartan 50 mg tablet 50 mg PO DAILY 10/11/23 11/03/24 blood sugar diagnostic (OneTouch #10 ea 08/10/24 08/10/24 Verio test strips) blood-glucose meter (OneTouch #1 ea 08/10/24 08/10/24 Verio Reflect Meter) acetaminophen 500 mg tablet 1,000 mg PO PRN 08/21/24 08/21/24 semaglutide 2 mg/dose (8 mg/3 mL) 2 mg subcut QWEEK 08/22/24 11/03/24 subcutaneous pen injector (Ozempic) tramadol 50 mg tablet 50 mg PO QDAY pain 10/27/24 11/03/24 Previous Rx's ?Medication ?Instructions ?Recorded sennosides 8.6 mg-docusate sodium 1 tab PO BID #60 tabs 08/18/24 50 mg tablet (Stool Softener-Laxative) cephalexin 500 mg capsule 500 mg PO TID #21 caps 10/27/24 sulfamethoxazole 800 1 tab PO BID 5 days #10 tabs 11/03/24 mg-trimethoprim 160 mg tablet (Bactrim DS) Allergies Allergy/AdvReac Type Severity Reaction Status Date / Time adhesive tape Allergy Intermediate Hives Verified 11/03/24 10:48 Penicillins Allergy Intermediate Hives Verified 11/03/24 10:48 metformin AdvReac Unknown GI Verified 11/03/24 10:48 Intolerance Review of Systems Status of ROS: Reports: 10 or more systems reviewed and unremarkable except as noted in History and below [facility] Medical History Acute parotitis (06/19/24) ?K11.21 - Acute sialoadenitis (ICD-10) Comminuted right humeral fracture with nonunion (2019) ?S42.351K - Displaced comminuted fracture of shaft of humerus, right arm, subsequent encounter for fracture with nonunion (ICD-10) Venous insufficiency ?I87.2 - Venous insufficiency (chronic) (peripheral) (ICD-10) Hammertoes of both feet (05/22/20) ?M20.41 - Other hammer toe(s) (acquired), right foot (ICD-10) ?M20.42 - Other hammer toe(s) (acquired), left foot (ICD-10) Depression with anxiety (03/06/14) ?F41.8 - Other specified anxiety disorders (ICD-10) Migraine headache ?G43.909 - Migraine, unspecified, not intractable, without status migrainosus (ICD-10) Insomnia ?G47.00 - Insomnia, unspecified (ICD-10) Chronic bilateral low back pain without sciatica (09/11/15) ?M54.50 - Low back pain, unspecified (ICD-10) ?G89.29 - Other chronic pain (ICD-10) History of adenomatous polyp of colon (09/30/15) ?Z86.0101 - Personal history of adenomatous and serrated colon polyps (ICD-10) Diabetic peripheral neuropathy (08/08/14) ?E11.42 - Type 2 diabetes mellitus with diabetic polyneuropathy (ICD-10) Chronic diastolic heart failure (07/06/14) ?I50.32 - Chronic diastolic (congestive) heart failure (ICD-10) Mixed hyperlipidemia ?E78.2 - Mixed hyperlipidemia (ICD-10) Primary hypertension ?I10 - Essential (primary) hypertension (ICD-10) Stage 3b chronic kidney disease (01/15/21) ?N18.32 - Chronic kidney disease, stage 3b (ICD-10) Exogenous obesity ?E66.09 - Other obesity due to excess calories (ICD-10) Type 2 diabetes mellitus, without long-term current use of insulin ?E11.9 - Type 2 diabetes mellitus without complications (ICD-10) Normal pressure hydrocephalus ?G91.2 - (Idiopathic) normal pressure hydrocephalus (ICD-10) Anxiety ?F41.9 - Anxiety disorder, unspecified (ICD-10) Gastroesophageal reflux ?K21.9 - Gastro-esophageal reflux disease without esophagitis (ICD-10) Obstructive sleep apnea ?G47.33 - Obstructive sleep apnea (adult) (pediatric) (ICD-10) Pulmonary nodule (10/10/23) ?R91.1 - Solitary pulmonary nodule (ICD-10) Chronic renal failure, stage 3b ?N18.32 - Chronic kidney disease, stage 3b (ICD-10) COPD (chronic obstructive pulmonary disease) ?J44.9 - Chronic obstructive pulmonary disease, unspecified (ICD-10) Surgical History S/P RETAIL [employer] PRO shunt (08/14/24) ?Z98.2 - Presence of cerebrospinal fluid drainage device (ICD-10) History of elbow surgery ?Z98.890 - Other specified postprocedural states (ICD-10) History of bilateral carpal tunnel release ?Z98.890 - Other specified postprocedural states (ICD-10) History of thyroid surgery ?Z98.890 - Other specified postprocedural states (ICD-10) History of knee surgery ?Z98.890 - Other specified postprocedural states (ICD-10) History of oophorectomy History of section ?Z98.891 - History of uterine scar from previous surgery (ICD-10) History of appendectomy ?Z90.49 - Acquired absence of other specified parts of digestive tract (ICD-10) Hx of shoulder surgery ?Z98.890 - Other specified postprocedural states (ICD-10) History of parathyroidectomy ?Z98.890 - Other specified postprocedural states (ICD-10) ?Z90.89 - Acquired absence of other organs (ICD-10) Family History Brother Diabetes Hx of CABG Sister Diabetes Father Lung cancer Prostate cancer Mother Lung cancer Heart disease Social History Narrative: , two kids, lives with her brother, former smoker, no EtOH, full code, daughter is POA, FULL CODE What is your current living situation?: I presently have a place to live Problems where you live: no known problems Problems where you live details: N/A In the past 12 months, utilities in danger of being shut off: no In past 12 months, lack of transportation kept you from medical appts, meetings, work, or getting things needed for daily living: no In the past 12 mos, have been you worried that your food would run out before you had money to buy more?: never true In the past 12 mos, the food you bought just didn't last and you didn't have money to buy more?: never true Highest level of school completed/degree received: 12th grade, no diploma Smoking Status: Former smoker What tobacco products do you use: cigarettes Smoking quit date/years: >15 years ago Do you use any of these nicotine containing products: None How often do you have a drink containing alcohol: never How often do you have six or more drinks on one occasion: Never AUDIT-C Alcohol total score: 0 Non-prescribed substance use: denies use Caffeine: Yes How often does anyone, including family, friends and others, physically hurt you: never How often does anyone, including family, friends and others, insult or talk down to you: never How often does anyone, including family, friends and others, threaten you with harm: never How often does anyone, including family, friends and others, scream or curse at you: never service: No Exam Narrative: Exam Narrative: Overweight, well-developed patient in no acute distress. Alert and oriented. Answers questions appropriately. Mood and affect are appropriate. Thoughts are goal oriented and rational. No tangential or magical thinking noted. Patient speaks in full sentences without needing to catch her breath. HEENT: Normocephalic atraumatic. Extraocular muscles are intact. Conjunctivae are moist without any icterus noted. Extremities: Patient has a healing blister on the big toe as well as the base of the 2nd toe. There are no blisters on the 3rd 4th or 5th toes. Patient is reassured. Slight area of pink discoloration around the blister that is healing underneath the 2nd toe. The skin is not indurated hot. There is some slough on top of both blister beds. Const: Vital Signs, click to edit/add: Vital Signs - 24 hr 11/03/24 10:43 Temperature 98.1 F Pulse Rate [Right Pulse Oximeter] 85 Respiratory Rate 18 Blood Pressure [Ri ght Upper Arm] 110/74 Pulse Oximetry 97 Oxygen Delivery Me thod Room Air Course Vital Signs Vital signs: Initial Vital Signs Temperature 98.1 F 11/03/24 10:43 Temperature Source Temporal Artery Scan 11/03/24 10:43 Pulse Rate 85 11/03/24 10:43 Pulse Rhythm Regular 11/03/24 10:43 Pulse Strength 3+ Normal 11/03/24 10:43 Respiratory Rate 18 11/03/24 10:43 Blood Pressure 110/74 11/03/24 10:43 Blood Pressure Mean 86 11/03/24 10:43 Blood Pressure Position Sitting 11/03/24 10:43 Pulse Oximetry 97 11/03/24 10:43 Oxygen Delivery Method Room Air 11/03/24 10:43 Vital Signs Temperature 98.1 F 11/03/24 10:43 Pulse Rate 85 11/03/24 10:43 Respiratory Rate 18 11/03/24 10:43 Blood Pressure 110/74 11/03/24 10:43 Pulse Oximetry 97 11/03/24 10:43 Oxygen Delivery Method Room Air 11/03/24 10:43 Temperature 98.1 F 11/03/24 10:43 Pulse Rate 85 11/03/24 10:43 Respiratory Rate 18 11/03/24 10:43 Blood Pressure 110/74 11/03/24 10:43 Pulse Oximetry 97 11/03/24 10:43 Oxygen Delivery Method Room Air 11/03/24 10:43 Medical Decision Making MDM Narrative Medical decision making narrative: 69-year-old female with healing blisters, some slight erythema starting. Patient has 1 dose of Keflex left. Given her comorbidities I do think that adding Bactrim is not a bad idea. Today is Wednesday, patient will follow up with her primary care provider on Wednesday. We discussed signs of infection which would necessitate an ER visit between then and now. We discussed the patient needs shoes that are rubbing up against her toes, a wider or tall her toe bed will be necessary going forward. Discharge Plan Discharge Clinical Impression: Healing wound Patient Disposition: Home, Self-Care Condition: Stable Additional Instructions: Start Bactrim DS 2 times per day for the next 5 days. Follow-up with your primary care provider on Wednesday. Return to the emergency department if in the next 48 hours you see increasing redness or drainage from the foot. You will need to invest in a pair shoes that puts less pressure on the toes. Prescriptions: New sulfamethoxazole-trimethoprim [Bactrim DS] 800-160 mg tablet 1 tab PO BID 5 Days Qty: 10 0RF No Action (DME) OneTouch Verio test strips Strip See Rx Instructions .ROUTE 3XD Qty: 10 Rx Instructions: As directed (DME) blood-glucose meter [OneTouch Verio Reflect Meter] [facility] See Rx Instructions .ROUTE .MEDSUPPLY Qty: 1 Patient Comments: APPLY 1 EACH TOPICALLY Rx Instructions: As directed Ozempic 2 mg/dose (8 mg/3 mL) pen injector 2 mg subcut QWEEK acetaminophen 500 mg tablet 1,000 mg PO PRN Rx Instructions: Take 2 tablets (1,000 mg total) by mouth every 6 (six) hours as needed for mild pain or score 1-3 of 10, moderate pain or score 4-6 of 10 or severe pain or score 7-10 of 10. tramadol 50 mg tablet 50 mg PO QDAY Rx Instructions: Chronic Pain/Nonacute Pain. cephalexin 500 mg capsule 500 mg PO TID Qty: 21 0RF albuterol sulfate 90 mcg/actuation HFA aerosol inhaler 2 puff INHALATION Q4H PRN Rx Instructions: Inhale 2 puffs every 4 (four) hours as needed for shortness of breath. amitriptyline 50 mg tablet 150 mg PO HS Rx Instructions: TAKE 3 TABLETS(150 MG) BY MOUTH AT BEDTIME aspirin 81 mg tablet,delayed release (DR/EC) 81 mg PO HS Rx Instructions: Take 81 mg by mouth at bedtime. atorvastatin 80 mg tablet 80 mg PO DAILY Rx Instructions: Take 1 tablet (80 mg total) by mouth daily. diclofenac sodium 1 % gel 4 g TOPICAL QID PRN Rx Instructions: Apply 4 g topically 4 (four) times a day as needed (Pain). Apply to right shoulder. ezetimibe 10 mg tablet 10 mg PO DAILY Rx Instructions: TAKE 1 TABLET(10 MG) BY MOUTH DAILY gabapentin 300 mg capsule 300 mg PO HS Rx Instructions: Take 1 capsule (300 mg total) by mouth at bedtime. multivitamin with minerals Capsule 1 cap PO DAILY Spiriva Respimat 2.5 mcg/actuation mist 2 inh INHALATION Q24H Rx Instructions: Inhale 2 puffs daily. torsemide 20 mg tablet 80 mg PO DAILY Rx Instructions: TAKE 4 TABLETS(80 MG) BY MOUTH DAILY venlafaxine 150 mg capsule,extended release 24hr 150 mg PO DAILY Rx Instructions: TAKE 1 CAPSULE(150 MG) BY MOUTH DAILY omeprazole 40 mg capsule,delayed release(DR/EC) 40 mg PO BID Rx Instructions: Take 1 capsule (40 mg total) by mouth 2 (two) times a day before breakfast and dinner. losartan 50 mg tablet 50 mg PO DAILY sennosides-docusate sodium [Stool Softener-Laxative] 8.6-50 mg Tablet 1 tab PO BID Qty: 60 0RF Follow Up/Referrals: Walter Mcgovern MD [Primary Care Provider, Family Practice] Stand Alone Forms: [employer] Info Instructions
== END 2024-11-03 11:32 | disposition home or self-care (01) ==
LOC: ED 11:28
PROVIDERS: Emergency Provider Family Medicine; PCP Family Medicine
DX: R23.8 Other skin changes (principal)
CPT/HCPCS: 99283

== ENCOUNTER 2025-02-08 08:21 | Outpatient (CLI) | payer MEDICARE, BC, SELFPAY ==
--- NOTE | 2025-02-08 09:00 | CRLHL7_ITS ---
For Patients: As a result of the Century Cures Act, medical imaging exams and procedure reports are released immediately into your electronic medical record. You may view this report before your referring provider. If you have questions, please contact your health care provider. INDICATION: VP PLATFORMS shunt TECHNIQUE: Noncontrast axial CT of the head is submitted. COMPARISON: Compared to prior study from August 15, 2024 FINDINGS: Mild cerebral atrophy. Stable right posterior intraventricular shunt catheter with the tip terminating in the anterior aspect of the left lateral ventricle. Stable mild prominence of the lateral ventricles. The remainder of the ventricles, sulci and gyri are of normal size, shape and contour for age and degree of atrophy. Midline structures are centrally located. No convincing evidence of suspicious intra- or extra-axial fluid collections. Mild patchy regions of decreased attenuation within the periventricular and subcortical white matter of both cerebral hemispheres. IMPRESSION: 1. No radiographic evidence of acute intracranial abnormalities. 2. Mild cerebral atrophy. 3. Stable right posterior intraventricular shunt catheter with stable appearing lateral ventricles. 4. Mild supratentorial white matter changes that are non-specific, but statistically most likely related to chronic small vessel ischemic disease. Please note that all CT scans at this facility use dose modulation, iterative reconstruction, and/or weight-based dosing when appropriate to reduce radiation dose to as low as reasonably achievable. Dictated by Wolf Deng MD @ 02/09/2025 11:57:52 AM (Electronically Signed)
== END 2025-02-08 08:22 | disposition home or self-care (01) ==
LOC: CT 08:21
PROVIDERS: PCP Family Medicine; Visit Provider Nurse Practitioner
DX: Z98.2 Presence of cerebrospinal fluid drainage device (principal); G31.9 Degenerative disease of nervous system, unspecified; G91.2 (Idiopathic) normal pressure hydrocephalus
CPT/HCPCS: 70450

== ENCOUNTER 2025-03-14 12:18 | Outpatient (CLI) | payer MEDICARE, BC, SELFPAY | END 2025-03-14 12:19 | disposition home or self-care (01) | PROVIDERS: PCP Family Medicine; Visit Provider Family Medicine | DX: E11.9 Type 2 diabetes mellitus without complications (principal); I10 Essential (primary) hypertension; E78.2 Mixed hyperlipidemia | CPT/HCPCS: 80048; 80061; 84460 ==